=== PATIENT | female | born 1950 | race Caucasian/White ===

== ENCOUNTER 2016-05-21 14:05 | Emergency (ER) | payer MEDICARE, OTHER ==
[~2016-05-21] VITALS: Ht 157.5 cm; Wt 72.6 kg
[~2016-05-21 14:05] MED LIST: ATOR10TA66 PO; BENA1TAB15 PO; CALC-408 PO; CALC1TAB94 PO; CARV25TA PO; CIPR-226 PO; CIPRO; CITA20TA7 PO; CYAN10006 PO; FERR-74 PO; INSU100V SQ; INSULIN PUMP; IRON18TA PO; METF1000 PO; OMEG-109 PO; OMEG-160 PO; PANT40TA3 PO; TRIM100T PO; VIT1CAPS9 PO; VIT1TABL83 PO; WARF2TAB PO; WARF3TAB PO; WARF3TAB6 PO
[2016-05-21] MEDS ORDERED: NS IV 1000 ML 1,000 ML IV ONE (14:29)
[2016-05-21] MEDS ORDERED: DEXTROSE 50% 50 ML (IMS) SYR IV ONE (14:45)
[2016-05-21 14:46] LABS: BASOPHILS % (AUTO) 0 % (0-10); EOSINOPHILS # (AUTO) 0.1 10^3/uL (0.0-0.3); EOSINOPHILS % (AUTO) 1 % (0-10); LYMPHOCYTES # (AUTO) 1.5 X 10^3 (1.0-4.0); LYMPHOCYTES % (AUTO) 13 % (12-44); MEAN CORPUSCULAR HEMOGLOBIN 27 PG (25-34); MEAN CORPUSCULAR HGB CONC 33 G/DL (32-36); MEAN CORPUSCULAR VOLUME 83 FL (80-99); MEAN PLATELET VOLUME 10.2 FL (7.4-10.4); MONOCYTES # (AUTO) 0.9 X 10^3 (0.0-1.0); MONOCYTES % (AUTO) 8 % (0-12); NEUTROPHILS # (AUTO) 9.3 X 10^3 (1.8-7.8); NEUTROPHILS % (AUTO) 79 % (42-75); PLATELET COUNT 419 10^3/uL (130-400); RED BLOOD COUNT 4.42 10^6/uL (4.35-5.85); RED CELL DISTRIBUTION WIDTH 14.2 % (10.0-14.5); WHITE BLOOD COUNT 11.8 10^3/uL (4.3-11.0)
--- NOTE | 2016-05-21 14:47 | ED Fall/Injury ---
General Chief Complaint: Trauma-Non Activation Stated Complaint: BACK PAIN,L SHOULDER PAIN Nursing Triage Note: Pt fell on Sunday on a patio. C/O left shoulder pain, posterior neck and upper back pain. Source: patient History of Present Illness Time seen by provider: 14:25 Initial Comments PT ARRIVES VIA POV FROM HOME PT STATES LAST SUNDAY SHE FELL ON THE PATIO AND LANDED ON HER LEFT SHOULDER HAS NOT SOUGHT CARE UNTIL TODAY NO RELIEF OF PAIN WITH TYLENOL STATES NOW SHE CAN'T MOVE HER LEFT SHOULDER/ARM AND IS ALSO HAVING PAIN IN UPPER BACK AND NECK DOES HAVE SLIGHT TINGLING AROUND SHOULDER AREA BUT NO DISTAL PARESTHESIAS OR MOTOR DEFICITS DID NOT HIT HEAD NO HIP PAIN NO LOWER BACK PAIN NO CHEST PAIN OR SHORTNESS OF BREATH PT STATES SHE HAD A SIMILAR FALL 10 YEARS AGO AND LANDED ON THIS SAME SHOULDER - -NEVER SOUGHT CARE PT IS PROFUSELY DIAPHORETIC AND PALE ON ARRIVAL C/O FEELING DIZZY, SHAKEY AND NAUSEATED PT IS DIABETIC AND HAS AN INSULIN PUMP ON--STATES HE BLOOD GLUCOSE WAS 450 AT NOON, SO SHE GAVE HERSELF A BOLUS OF 30 UNITS OF INSULIN, BUT HAS NOT RECHECKED HER GLUCOSE STATES IT FEELS LIKE HER BLOOD GLUCOSE IS LOW ATE PART OF A SANDWICH AND KVNG CRACKERS AT NOON PCP: DR. BRUCE Allergies and Home Medications Allergies Coded Allergies: Penicillins (Verified Allergy, Intermediate, HIVES, 12/21/14) hydrocodone (Verified Adverse Reaction, Unknown, VOMITING, 11/04/13) Home Medications Atorvastatin Calcium 10 Mg Tablet, 10 MG PO EVERY EVENING, (Reported) Calcium Carbonate/Vitamin D3 1 Each Tablet, 1 TAB PO BID, (Reported) Carvedilol 25 Mg Tablet, 25 MG PO BID, (Reported) Ciprofloxacin HCl 250 Mg Tablet, 250 MG PO BID, (Reported) FILLED 03/04/15 #20 FOR A 10 DAY THERAPY Citalopram Hydrobromide 20 Mg Tablet, 20 MG PO EVERY EVENING, (Reported) Cyanocobalamin (Vitamin B-12) 1,000 Mcg Tablet, 1,000 MCG PO DAILY, (Reported) Insulin Lispro 100 Unit/1 Ml Vial, SQ UD, #20 (Reported) PUMP IS SET AT: 1.05 PER HOUR @ 0001 0.1 PER HOUR @ 0430 0.9 PER HOUR @ 1500 [place]-3/Dha/Epa/Fish Oil 1 Each Capsule, 1 CAP PO BID, (Reported) Pantoprazole Sodium 40 Mg Tablet.dr, 40 MG PO DAILY, (Reported) Trimethoprim 100 Mg Tablet, 100 MG PO EVERY EVENING, (Reported) Vit C/Vit E/Lutein/Min/[place]-3 1 Each Capsule, 1 CAP PO DAILY, (Reported) Warfarin Sodium 2 Mg Tablet, 2 MG PO DAILY, #30 (Reported) Constitutional: see HPI, diaphoresis Eyes: No Symptoms Reported Ears, Nose, Mouth, Throat: no symptoms reported Respiratory: no symptoms reported Cardiovascular: no symptoms reported Gastrointestinal: see HPI, nausea Genitourinary: no symptoms reported Musculoskeletal: see HPI Skin: no symptoms reported Psychiatric/Neurological: See HPI Past Qmkbonp-Owuzdr-Vkgerd Hx Patient Social History Alcohol Use: Denies Use Recreational Drug Use: No Smoking Status: Never a Smoker Recent Foreign Travel: No Contact w/Someone Who Travel: No Recent Infectious Disease Expo: No Immunizations Up To Date Date of Pneumonia Vaccine: Mar 17, 2009 Date of Influenza Vaccine: Nov 26, 2014 Surgeries HX Surgeries: Yes Surgeries: Bladder Surgery, Section, Gallbladder, Hysterectomy Respiratory Hx Respiratory Disorders: No Cardiovascular Hx Cardiac Disorders: Yes Cardiac Disorders: Deep Vein Thrombosis, Hypertension Neurological Hx Neurological Disorders: Yes (1997 ) Neurological Disorders: Stroke Reproductive System Hx Reproductive Disorders: No Sexually Transmitted Disease: No Genitourinary Hx Genitourinary Disorders: Yes Genitourinary Disorders: UTI-Chronic Gastrointestinal Hx Gastrointestinal Disorders: No Musculoskeletal Hx Musculoskeletal Disorders: Yes (OSTEOPENIA) Endocrine Hx Endocrine Disorders: Yes Endocrine Disorders: Diabetes, Insulin dep HEENT HX ENT Disorders: No Cancer Hx Cancer: Yes (1975-) Cancer: Cervical Psychosocial Hx Psychiatric Problems: No Integumentary HX Skin/Integumentary Disorder: No Blood Transfusions Hx Blood Disorders: 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) Family Medical History Significant Family History: No Pertinent Family Hx Family Medial History: Asthma 19 FATHER Diabetes mellitus 19 FATHER 19 MOTHER Hypertension 19 FATHER 19 MOTHER Physical Exam Vital Signs Vital Sign - Last 12Hours 05/21/16 05/21/16 14:21 14:25 Temp 97.5 Pulse 70 Resp 16 B/P (MAP) 92/69 Pulse Ox 96 O2 Delivery Room Air Capillary Refill : Less Than 3 Seconds General Appearance: WD/WN, no apparent distress, other (PALE AND DIAPHORETIC) HEENT: PERRL/EOMI, normal ENT inspection Neck: full range of motion, supple, tender lateral, tender midline Cardiovascular: normal peripheral pulses, regular rate, rhythm, no edema, no JVD, no murmur Respiratory: chest non-tender, normal breath sounds, no respiratory distress, no accessory muscle use Peripheral Pulses: 2+ Radial Pulses (R), 2+ Radial Pulses (L) Gastrointestinal: normal bowel sounds, non tender, soft, no organomegaly Back: other (TENDERNESS TO LEFT UPPER BACK AND NECK) Extremities: no pedal edema, no calf tenderness, normal capillary refill, other (TENDERNESS AND LIMITED ROM TO RIGHT SHOULDER. 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, no motor/sensory deficits, alert, normal mood/affect, oriented x 3 Skin: cool, diaphoresis, pallor [place] Coma Score Best Eye Response: (4) Open Spontaneously Best Verbal Response: (5) Oriented Best Motor Response: (6) Obeys Commands Chelsea Total: 15 Splinting and Joint Reduction : Immobilizers: XL Shoulder Progress/Results/Core Measures Results/Orders Lab Results Laboratory Tests Test 05/21/16 14:37 05/21/16 14:40 Range/Units Glucometer 59 *L 70-110 MG/DL White Blood Count 11.8 H 4.3-11.0 10^3/uL Red Blood Count 4.42 4.35-5.85 10^6/uL Hemoglobin 12.0 11.5-16.0 G/DL Hematocrit 37 35-52 % Mean Corpuscular Volume 83 80-99 FL Mean Corpuscular Hemoglobin 27 25-34 PG Mean Corpuscular Hemoglobin Concent 33 32-36 G/DL Red Cell Distribution Width 14.2 10.0-14.5 % Platelet Count 419 H 130-400 10^3/uL Mean Platelet Volume 10.2 7.4-10.4 FL Neutrophils (%) (Auto) 79 H 42-75 % Lymphocytes (%) (Auto) 13 12-44 % Monocytes (%) (Auto) 8 0-12 % Eosinophils (%) (Auto) 1 0-10 % Basophils (%) (Auto) 0 0-10 % Neutrophils # (Auto) 9.3 H 1.8-7.8 X 10^3 Lymphocytes # (Auto) 1.5 1.0-4.0 X 10^3 Monocytes # (Auto) 0.9 0.0-1.0 X 10^3 Eosinophils # (Auto) 0.1 0.0-0.3 10^3/uL Basophils # (Auto) 0.0 0.0-0.1 10^3/uL Prothrombin Time 27.0 H 12.2-14.7 SEC INR Comment 2.5 H 0.8-1.4 Activated Partial Thromboplast Time 52 H 24-35 SEC Sodium Level 141 135-145 MMOL/L Potassium Level 3.5 L 3.6-5.0 MMOL/L Chloride Level 106 98-107 MMOL/L Carbon Dioxide Level 21 21-32 MMOL/L Anion Gap 14 5-14 MMOL/L Blood Urea Nitrogen 14 7-18 MG/DL Creatinine 1.76 H 0.60-1.30 MG/DL Estimat Glomerular Filtration Rate 29 BUN/Creatinine Ratio 8 Glucose Level 55 *L 70-105 MG/DL Calcium Level 9.4 8.5-10.1 MG/DL Total Bilirubin 0.6 0.1-1.0 MG/DL Aspartate Amino Transf (AST/SGOT) 18 5-34 U/L Alanine Aminotransferase (ALT/SGPT) 15 0-55 U/L Alkaline Phosphatase 66 40-136 U/L Troponin I < 0.30 <0.30 NG/ML Total Protein 6.9 6.4-8.2 G/DL Albumin 3.7 3.2-4.5 G/DL My Orders Orders - LEAH MONTERO DO Accucheck Stat ONCE (05/21/16 14:29) Saline Lock/Iv-Start (05/21/16 14:29) Monitor-Rhythm Ecg Trace Only (05/21/16 14:29) Cbc With Automated Diff (05/21/16 14:29) Comprehensive Metabolic Panel (05/21/16 14:29) Protime With Inr (05/21/16 14:29) Partial Thromboplastin Time (05/21/16 14:29) Troponin I (05/21/16 14:29) Chest 1 View, Ap/Pa Only (05/21/16 14:29) Shoulder, Left, 3 Views (05/21/16 14:29) Saline Lock/Iv-Start (05/21/16 14:29) Ns Iv 1000 Ml (Sodium Chloride 0.9%) (05/21/16 14:29) D50w (Emergency) Syringe (Dextrose 50% 5 (05/21/16 14:45) Ct Cervical/Thoracic Spine Wo (05/21/16 14:43) Iohexol Injection (Omnipaque 350 Mg/Ml 1 (05/21/16 15:00) Ns (Ivpb) (Sodium Chloride 0.9% Ivpb Bag (05/21/16 15:00) Ct Chest Wo (05/21/16 14:29) Medications Given in ED Current Medications Medications Dose Ordered Sig/Jean Claude Route Start Time Stop Time Status Last Admin Dose Admin Dextrose 50 ml ONCE ONCE IV 05/21/16 14:45 05/21/16 14:46 DC 05/21/16 14:46 50 ML Sodium Chloride 1,000 ml @ 0 mls/hr Q0M ONCE IV 05/21/16 14:29 05/21/16 14:34 DC 05/21/16 14:47 1,000 MLS/HR Vital Signs/I&O Vital Sign - Last 12Hours 05/21/16 05/21/16 14:21 14:25 Temp 97.5 Pulse 70 70 Resp 16 16 B/P (MAP) 92/69 92/69 (77) Pulse Ox 96 96 O2 Delivery Room Air Blood Pressure Mean: 77 Progress Note : Progress Note ACCUCHECK 59--1 AMP D50 GIVEN PT NO LONGER DIAPHORETIC AND PALE--LOOKS AND FEELS MUCH BETTER REPEAT ACCUCHECK PRIOR TO DISMISSAL--87 Diagnostic Imaging Comments CXR--NO ACUTE PROCESS XRAYS LEFT SHOULDER--FRACTURE OF GREATER TUBEROSITY OF HUMERUS, WIDENING OF AC JOINT CT CERVICAL AND THORACIC SPINE--NO ACUTE PROCESS CT CHEST--NO ACUTE PROCESS ALL PER RADIOLOGIST REPORTS @ 1545 Reviewed: Reviewed by Me Departure Impression Impression: Primary Impression: Closed fracture of left proximal humerus Additional Impression: Hypoglycemia associated with diabetes Disposition: 01 HOME, SELF-CARE Condition: Stable Departure-Patient Inst. Referrals: SHAKEEL BRUCE DO (PCP/Family) Primary Care Physician REBECA WOO MD Patient Instructions: How to Use a Shoulder Sling, Low Blood Sugar, Adult (DC) , Shoulder Fracture (DC) Add. Discharge Instructions: ICE TO AREA AT 20 MINUTE INTERVALS WEAR IMMOBILIZER AT ALL TIMES FOLLOW UP WITH DR. WOO OR ORTHOPEDIC SURGEON OF CHOICE NEXT WEEK FOR FURTHER CARE All discharge instructions reviewed with patient and/or family. Voiced understanding. Scripts Tramadol HCl (Ultram) 50 Mg Tablet 50 MG PO Q4H, #20 TAB Prov: LEAH MONTERO DO 05/21/16 Images Full Body/Extremities Full Progress SEE ADDITIONAL PAPER DIAGRAMS FOR IMAGES LEAH MONTERO DO May 21, 2016 14:47
[2016-05-21 14:56] LABS: INR 2.5 (0.8-1.4)
[2016-05-21] MEDS ORDERED: NS 100 ML (IVPB) BAG IV ONE (15:00)
[2016-05-21] MEDS ORDERED: IOHEXOL 350 MG/ML 100 ML (OMNIPAQUE 350) VIAL IV ONE (15:00)
[2016-05-21 15:05] LABS: ALANINE AMINOTRANSFERASE 15 U/L (0-55); ALBUMIN 3.7 G/DL (3.2-4.5); ANION GAP 14 MMOL/L (5-14); ASPARTATE AMINO TRANSFERASE 18 U/L (5-34); BILIRUBIN,TOTAL 0.6 MG/DL (0.1-1.0); BLOOD UREA NITROGEN 14 MG/DL (7-18); BUN/CREATININE RATIO 8; CALCIUM 9.4 MG/DL (8.5-10.1); CARBON DIOXIDE 21 MMOL/L (21-32); CHLORIDE 106 MMOL/L (98-107); CREATININE SERUM 1.76 MG/DL (0.60-1.30); GFR ESTIMATED 29; POTASSIUM 3.5 MMOL/L (3.6-5.0); SODIUM 141 MMOL/L (135-145); TOTAL PROTEIN 6.9 G/DL (6.4-8.2)
[2016-05-21 15:06] LABS: GLUCOSE 55 MG/DL (70-105)
[2016-05-21] MEDS ORDERED: WARF2TAB PO (15:08)
[2016-05-21 15:11] LABS: TROPONIN I < 0.30 NG/ML (<0.30)
--- NOTE | 2016-05-21 15:22 | Diagnostic Imaging Report ---
INDICATION: Recent fall. Left shoulder pain. EXAMINATION: Two views of the left shoulder were obtained. FINDINGS: There is some apparent widening of the AC joint which measures 11-12 mm but there is no abnormal elevation of the clavicle in relationship to the acromion. The glenohumeral joint is intact. There is a focal nondisplaced fracture involving the greater tuberosity of the humerus. IMPRESSION: Fractured tuberosity of the humerus. AC joint widening. Dictated by: Dictated on workstation # [id number]
--- NOTE | 2016-05-21 15:24 | Diagnostic Imaging Report ---
INDICATION: Recent fall. Left-sided chest pain. EXAMINATION: A single view of the chest was obtained. FINDINGS: Normal heart size and vascularity. The lungs are clear. There is no effusion or pneumothorax. IMPRESSION: No acute abnormality is seen. Dictated by: Dictated on workstation # [id number]
--- NOTE | 2016-05-21 15:33 | Diagnostic Imaging Report ---
INDICATION: Fall with left shoulder pain. EXAMINATION: CT of the cervical and thoracic spine without contrast. FINDINGS: Sagittal and coronal reformatted images of the cervical spine show good alignment of vertebral bodies. Body heights are well maintained. The atlantoaxial joint appears normal. Facets are in good alignment. There is degenerative disc disease at C6-C7 and C7-T1. Osteophytes along the endplate are causing mild midline ventral extradural encroachment with no central canal stenosis. There are no fractures. The surrounding soft tissues are normal. Thoracic spine shows good alignment with sagittal and coronal reformatting. Body heights are well maintained throughout with no compression fractures. Schmorl's nodes are seen at the endplates of T11 and T12. These appear chronic in nature. No spinal stenosis. Facets are in good alignment without evidence of fracture. The surrounding soft tissues are normal. IMPRESSION: Degenerative cervical and thoracic disc disease with no acute abnormalities. Dictated by: Dictated on workstation # [id number]
--- NOTE | 2016-05-21 15:40 | Diagnostic Imaging Report ---
PROCEDURE: CT chest without contrast. TECHNIQUE: Multiple contiguous axial images were obtained through the chest without the use of intravenous contrast. INDICATION: Fall with pain to left shoulder. FINDINGS: Bone windows show no evidence of clavicular fracture. The scapula is intact. No evidence of rib fractures. The lungs are well-aerated. There are no infiltrates or masses. No evidence of pneumothorax or pleural effusions. Aorta is atherosclerotic without evidence of aneurysm. No mediastinal or hilar adenopathy of pathologic size. IMPRESSION: Normal CT scan of the chest with no acute findings. See left shoulder report for a description of AC joint separation and humeral tuberosity fracture which are not visualized on this exam. Dictated by: Dictated on workstation # [id number]
[2016-05-21] MEDS ORDERED: TRAM-42 PO (15:53)
[2016-05-21 16:10] VITALS: BP 98/72
--- OUTSIDE RECORDS SUMMARY | 2016-06-06 13:32 | XMS REPORT | Clinical Summary ---
Author Author Admin, E Organization [facility] Address Unknown Phone Unavailable Allergies, Adverse Reactions, Alerts Allergy Name Reaction Description Start Date Severity Status Provider Allergies Unknown Conditions or Problems Problem Name Problem Code Onset Date Status Entry Date Provider Comment Standard Description Annotate UTI's, recurrent 599.0 Active Kari Laughlin MD Urinary tract infection, site not specified Incomplete Bladder Emptying Active Kari Laughlin MD Retention of urine, unspecified Medication List Medication Instructions Start Date Stop Date Generic Name NDC Status Provider Patient Instruction Drug Treatment Unknown - unknown Encounters Code Encounter Date Provider Facility CPT-46711 Level 3 New Patient 21:44:21 CDT Kari Laughlin MD [facility] - [facility] Procedures Code Procedure Name Date Entry Date Standard Description CPT-27925 Insert non indwelling bld cath 21:44:21 CDT CPT-75654 Bladder Scan 21:44:21 CDT
--- OUTSIDE RECORDS SUMMARY | 2016-06-06 13:32 | XMS REPORT | Clinical Summary ---
Author Author Admin, E Organization [facility] Address Unknown Phone Unavailable Allergies, Adverse Reactions, [...] unknown Encounters Code Encounter Date Provider Facility CPT-10806 Level 3 New Patient 21:44:21 CDT Kari Laughlin MD [facility] - [facility] Procedures Code Procedure Name Date Entry Date Standard Description CPT-31451 Insert non indwelling bld cath 21:44:21 CDT CPT-34205 Bladder Scan 21:44:21 CDT
--- OUTSIDE RECORDS SUMMARY | 2016-06-06 13:32 | XMS REPORT | Clinical Summary ---
Author Author Admin, E Organization [facility] Address Unknown Phone Unavailable Allergies, Adverse Reactions, [...] Generic Name NDC Status Provider Patient Instruction CIPRO 500 MG TAB 1 tablet two times daily CIPROFLOXACIN HCL 79558390401 Active Ana Swanson Active Encounters Code Encounter Date Provider Facility CPT-65358 Level 3 New Patient 21:44:21 CDT Kari Laughlin MD [facility] - [facility] Procedures Code Procedure Name Date Entry Date Standard Description CPT-83157 Insert non indwelling bld cath 21:44:21 CDT CPT-02390 Bladder Scan 21:44:21 CDT
--- OUTSIDE RECORDS SUMMARY | 2016-06-06 13:32 | XMS REPORT | Clinical Summary ---
Author Author Admin, E Organization [facility] Address Unknown Phone Unavailable Allergies, Adverse [...] unknown Encounters Code Encounter Date Provider Facility CPT-42584 Level 3 New Patient 21:44:21 CDT Kari Laughlin MD [facility] - [facility] Procedures Code Procedure Name Date Entry Date Standard Description CPT-35046 Insert non indwelling bld cath 21:44:21 CDT CPT-50187 Bladder Scan 21:44:21 CDT
--- OUTSIDE RECORDS SUMMARY | 2016-06-06 13:32 | XMS REPORT | Continuity of Care Document ---
Author Author [facility] Organization [facility] Address Unknown Phone Unavailable Care Team Providers Care Heavy Forger Name Role Phone PCP Unavailable Source Comments Some departments are not documenting in the electronic medical record. If you do not see the information that you expected, contact Release of Information in the Health Information Management department at [phone] for further assistance in locating additional records.[facility] Active Allergies and Adverse Reactions Allergen Noted Date Severity Reactions Comments Penicillins 12/13/2005 Allergy recorded in SMS: Penicillin~Reactions: HIVES Sulfa (Sulfonamide 12/13/2005 Allergy recorded in SMS: Antibiotics) Sulfa~Reactions: HIVES Current Medications Not on file Active Problems Not on file Social History Tobacco Use Types Packs/Day Years Used Date Never Assessed Plan of Care Health Maintenance Due Date Last Done Comments Hepatitis C Screening 1950 Physical (Comprehensive) 1957 Exam Pertussis Vaccine 1961 Tetanus Vaccine 1967 Breast Cancer Screening 1990 Colorectal Cancer 02/29/2000 Screening Shingles Vaccine 2010 Osteoporosis Screening 2015 Prevnar/Pneumovax (#1) 2015 Influenza Vaccine 10/27/2016 Results from Last 3 Months Not on file
--- OUTSIDE RECORDS SUMMARY | 2016-06-06 13:33 | XMS REPORT | Clinical Summary ---
Author Author Admin, E Organization [facility] Address Unknown Phone Unavailable Allergies, Adverse [...] 1 tablet two times daily CIPROFLOXACIN HCL 57808699331 Active Ana Swanson Active Encounters Code Encounter Date Provider Facility CPT-35796 Level 3 New Patient 21:44:21 CDT Kari Laughlin MD [facility] - [facility] Procedures Code Procedure Name Date Entry Date Standard Description CPT-11373 Insert non indwelling bld cath 21:44:21 CDT CPT-87148 Bladder Scan 21:44:21 CDT
--- OUTSIDE RECORDS SUMMARY | 2016-06-06 13:33 | XMS REPORT | Clinical Summary ---
Author Author Admin, E Organization [facility] Address Unknown Phone Unavailable Allergies, Adverse Reactions, Alerts Allergy Name Reaction Description Start Date Severity Status Provider VICODIN anxiety Critical Active Baldemar PENICILLIN hives Critical Active Baldemar Conditions or Problems Problem Name Problem Code Onset Date Status Entry Date Provider Comment Standard Description Annotate UTI's, recurrent 599.0 Active Kari Laughlin MD Urinary tract infection, site not specified Incomplete Bladder Emptying Active Kari Laughlin MD Retention of urine, unspecified Medication List Medication Instructions Start Date Stop Date Generic Name NDC Status Provider Patient Instruction VITAMIN D3 1000 UNIT CAPS 1 po qd CHOLECALCIFEROL 52066100258 Active Stephanie Devlinr Active VITAMIN C 1000 MG ORAL TABS 1 tab by mouth daily ASCORBIC ACID 24597731452 Active Stephanie Devlinr Active RA VITAMIN B-12 100 MCG ORAL TABS 1 tab by mouth daily CYANOCOBALAMIN 26735051513 Active Stephanie Devlinr Active VISION FORMULA/LUTEIN ORAL TABS 1 tab by mouth daily MULTIPLE VITAMINS-MINERALS 49082439672 Active Stephanie Devlinr Active CALCIUM MAGNESIUM 750 300-300 MG ORAL TABS 1 tab by mouth daily CALCIUM-MAGNESIUM 96644301443 Active Stephanie Devlinr Active FISH OIL 1000 MG CPDR 1 pill by mouth daily for cholesterol OMEGA-3 FATTY ACIDS 08923496378 Active Baldemar Active ATORVASTATIN CALCIUM 10 MG TABS 1 pill by mouth nightly, for cholesterol 2015 ATORVASTATIN CALCIUM 95899195800 Active Baldemar Active CITALOPRAM HYDROBROMIDE 20 MG TABS 1 tablet by mouth daily CITALOPRAM HYDROBROMIDE 64169170965 Active Stephanie Mcdermott Active TRIMETHOPRIM 100 MG ORAL TABS 1 tab by mouth daily TRIMETHOPRIM 08736825930 Active Stephanie Devlinr Active COUMADIN 2.5 MG TAB WARFARIN SODIUM 71054200093 Active Stephanie Devilnr Active COREG CR 20 MG ORAL [id number] 1 tab by mouth daily CARVEDILOL PHOSPHATE 87902820850 Active Stephanie Devlinr Active PANTOPRAZOLE SODIUM 40 MG TBEC 1 pill by mouth daily PANTOPRAZOLE SODIUM 15504887041 Active Stephanie Devlinr Active METFORMIN HCL 1000 MG TABS 1 tablet by mouth daily METFORMIN HCL 94390711500 Active Stephanie Devlinr Active CIPRO 500 MG TAB 1 tablet two times daily CIPROFLOXACIN HCL 08786355234 No Longer Active Ana Swanson Active CIPRO 500 MG TAB 1 tablet two times daily CIPRO 500 MG TAB 772764 CIPROFLOXACIN HCL Inactive Vital Signs Date Name Value Unit Range Description blood pressure, diastolic - 8462-4 70 mm[Hg] BP jaeger blood pressure, systolic - 8480-6 138 mm[Hg] BP sys pulse rate E&M - 8867-4 78 /min Heart rate temperature E&M 98.4 [degF] Body temperature Diagnostic Results Date Name Value Unit Range Description Office Visit: CN-recurrent uti - Chemistry RBC, urine, dipstick non-hemolyzed trace protein, total urine random negative mg/dL Office Visit: CN-recurrent uti - Urinalysis pH, urine, semiquantitative 5 specific gravity, urine 1.005 urinalysis, routine Clean Catch culture status Yes ketones, urine, by test strip negative bilirubin, urine negative glucose, urine, semiquantitative negative urine color yellow appearance, urine clear leukocyte esterase, urine, by dipstick 3+ nitrite, urine, semiquantitative positive urobilinogen, urine, semiquantitative (dipstick) negative protein, urine, semiquantitative (dipstick) negative Encounters Code Encounter Date Provider Facility CPT-57929 Level 3 New Patient 21:44:21 CDT Kari Laughlin MD [facility] Procedures Code Procedure Name Date Entry Date Standard Description CPT-22160 Insert non indwelling bld cath 21:44:21 CDT CPT-55708 Bladder Scan 21:44:21 CDT
--- OUTSIDE RECORDS SUMMARY | 2016-06-06 13:33 | XMS REPORT | Clinical Summary ---
Author Author Admin, QIE Organization [facility] Address Unknown Phone Unavailable Allergies, [...] 1000 UNIT CAPS 1 po qd CHOLECALCIFEROL 83270923971 Active Stephanie Devlinr Active VITAMIN C 1000 MG ORAL TABS 1 tab by mouth daily ASCORBIC ACID 07357325560 Active Stephanie Devlinr Active RA VITAMIN B-12 100 MCG ORAL TABS 1 tab by mouth daily CYANOCOBALAMIN 15166716206 Active Stephanie Devlinr Active VISION FORMULA/LUTEIN ORAL TABS 1 tab by mouth daily MULTIPLE VITAMINS-MINERALS 27782185518 Active Stephanie Devlinr Active CALCIUM MAGNESIUM 750 300-300 MG ORAL TABS 1 tab by mouth daily CALCIUM-MAGNESIUM 43429027738 Active Baldemar Active FISH OIL 1000 MG CPDR 1 pill by mouth daily for cholesterol OMEGA-3 FATTY ACIDS 16825617165 Active Baldemar Active ATORVASTATIN CALCIUM 10 MG TABS 1 pill by mouth nightly, for cholesterol 2015 ATORVASTATIN CALCIUM 89636968784 Active Baldemar Active CITALOPRAM HYDROBROMIDE 20 MG TABS 1 tablet by mouth daily CITALOPRAM HYDROBROMIDE 14049017571 Active Stephanie Mcdermott Active TRIMETHOPRIM 100 MG ORAL TABS 1 tab by mouth daily TRIMETHOPRIM 56979348919 Active Stephanie Devlinr Active COUMADIN 2.5 MG TAB WARFARIN SODIUM 26439289719 Active Stephanie Devlinr Active COREG CR 20 MG ORAL [id number] 1 tab by mouth daily CARVEDILOL PHOSPHATE 11187388430 Active Stephanie Devlinr Active PANTOPRAZOLE SODIUM 40 MG TBEC 1 pill by mouth daily PANTOPRAZOLE SODIUM 36366978170 Active Stephanie Devlinr Active METFORMIN HCL 1000 MG TABS 1 tablet by mouth daily METFORMIN HCL 66326821582 Active Stephanie Devlinr Active CIPRO 500 MG TAB 1 tablet two times daily CIPROFLOXACIN HCL 39945273915 No Longer Active Ana Swanson Active CIPRO 500 MG TAB 1 tablet two times daily CIPRO 500 MG TAB 655351 CIPROFLOXACIN HCL Inactive Vital Signs Date Name [...] negative Encounters Code Encounter Date Provider Facility CPT-61112 Level 3 New Patient 21:44:21 CDT Kari Laughlin MD [facility] Procedures Code Procedure Name Date Entry Date Standard Description CPT-86914 Insert non indwelling bld cath 21:44:21 CDT CPT-31231 Bladder Scan 21:44:21 CDT
--- OUTSIDE RECORDS SUMMARY | 2016-06-06 13:33 | XMS REPORT | Clinical Summary ---
Author Author Admin, QIE Organization [facility] Address Unknown Phone Unavailable Allergies, Adverse [...] 1000 UNIT CAPS 1 po qd CHOLECALCIFEROL 74587236386 Active Stephanie Devlinr Active VITAMIN C 1000 MG ORAL TABS 1 tab by mouth daily ASCORBIC ACID 10757362086 Active Stephanie Devlinr Active RA VITAMIN B-12 100 MCG ORAL TABS 1 tab by mouth daily CYANOCOBALAMIN 20618723352 Active Stephanie Devlinr Active VISION FORMULA/LUTEIN ORAL TABS 1 tab by mouth daily MULTIPLE VITAMINS-MINERALS 55138704937 Active Stephanie Devlinr Active CALCIUM MAGNESIUM 750 300-300 MG ORAL TABS 1 tab by mouth daily CALCIUM-MAGNESIUM 55212772345 Active Baldemar Active FISH OIL 1000 MG CPDR 1 pill by mouth daily for cholesterol OMEGA-3 FATTY ACIDS 12326998349 Active Baldemar Active ATORVASTATIN CALCIUM 10 MG TABS 1 pill by mouth nightly, for cholesterol 2015 ATORVASTATIN CALCIUM 48268261110 Active Baldemar Active CITALOPRAM HYDROBROMIDE 20 MG TABS 1 tablet by mouth daily CITALOPRAM HYDROBROMIDE 05274377262 Active Stephanie Devlinr Active TRIMETHOPRIM 100 MG ORAL TABS 1 tab by mouth daily TRIMETHOPRIM 35691249178 Active Baldemar Active COUMADIN 2.5 MG TAB WARFARIN SODIUM 18612906951 Active Baldemar Active COREG CR 20 MG ORAL [id number] 1 tab by mouth daily CARVEDILOL PHOSPHATE 67008278489 Active Baldemar Active PANTOPRAZOLE SODIUM 40 MG TBEC 1 pill by mouth daily PANTOPRAZOLE SODIUM 36416930430 Active Baldemar Active METFORMIN HCL 1000 MG TABS 1 tablet by mouth daily METFORMIN HCL 25281098901 Active Baldemar Active CIPRO 500 MG TAB 1 tablet two times daily CIPROFLOXACIN HCL 27735297875 No Longer Active Ana Swanson Active CIPRO 500 MG TAB 1 tablet two times daily CIPRO 500 MG TAB 187682 CIPROFLOXACIN HCL Inactive Vital Signs Date Name Value Unit Range Description blood pressure, diastolic - 8462-4 75 mm[Hg] BP jaeger blood pressure, systolic - 8480-6 135 mm[Hg] BP sys height E&M - 8302-2 62 [in_us] Bdy height pulse rate E&M - 8867-4 75 /min Heart rate temperature E&M 98.4 [degF] Body temperature weight E&M - 3141-9 186.5 [lb_av] Weight Measured blood pressure, diastolic - 8462-4 70 mm[Hg] [...] (dipstick) negative protein, urine, semiquantitative (dipstick) negative Office Visit: Follow up UTI - Chemistry RBC, urine, dipstick negative protein, total urine random trace mg/dL Office Visit: Follow up UTI - Urinalysis specific gravity, urine 1.010 pH, urine, semiquantitative 5 urinalysis, routine Clean Catch culture status No ketones, urine, by test strip negative bilirubin, urine negative glucose, urine, semiquantitative 1+ urine color yellow appearance, urine clear leukocyte esterase, urine, by dipstick negative nitrite, urine, semiquantitative negative urobilinogen, urine, semiquantitative (dipstick) 0.2 protein, urine, semiquantitative (dipstick) negative Encounters Code Encounter Date Provider Facility CPT-58394 Level 3 New Patient 21:44:21 CDT Kari Laughlin MD [facility] Procedures Code Procedure Name Date Entry Date Standard Description CPT-82375 Insert non indwelling bld cath 21:44:21 CDT CPT-45015 Bladder Scan 21:44:21 CDT
--- OUTSIDE RECORDS SUMMARY | 2016-06-06 13:33 | XMS REPORT | Clinical Summary ---
Author Author Admin, E Organization [facility] Address Unknown Phone Unavailable Allergies, Adverse [...] unknown Encounters Code Encounter Date Provider Facility CPT-97126 Level 3 New Patient 21:44:21 CDT Kari Laughlin MD [facility] Procedures Code Procedure Name Date Entry Date Standard Description CPT-67993 Insert non indwelling bld cath 21:44:21 CDT CPT-51412 Bladder Scan 21:44:21 CDT
--- OUTSIDE RECORDS SUMMARY | 2016-06-06 13:33 | XMS REPORT | Clinical Summary ---
Author Author Admin, QIE Organization [facility] Address Unknown Phone Unavailable Allergies, [...] 1000 UNIT CAPS 1 po qd CHOLECALCIFEROL 12802849118 Active Stephanie Devlinr Active VITAMIN C 1000 MG ORAL TABS 1 tab by mouth daily ASCORBIC ACID 21450274517 Active Stephanie Devlinr Active RA VITAMIN B-12 100 MCG ORAL TABS 1 tab by mouth daily CYANOCOBALAMIN 29320029762 Active Stephanie Devlinr Active VISION FORMULA/LUTEIN ORAL TABS 1 tab by mouth daily MULTIPLE VITAMINS-MINERALS 78779121408 Active Stephanie Devlinr Active CALCIUM MAGNESIUM 750 300-300 MG ORAL TABS 1 tab by mouth daily CALCIUM-MAGNESIUM 11484809924 Active Baldemar Active FISH OIL 1000 MG CPDR 1 pill by mouth daily for cholesterol OMEGA-3 FATTY ACIDS 49016506392 Active Baldemar Active ATORVASTATIN CALCIUM 10 MG TABS 1 pill by mouth nightly, for cholesterol 2015 ATORVASTATIN CALCIUM 85905688568 Active Baldemar Active CITALOPRAM HYDROBROMIDE 20 MG TABS 1 tablet by mouth daily CITALOPRAM HYDROBROMIDE 09989300977 Active Baldemar Active TRIMETHOPRIM 100 MG ORAL TABS 1 tab by mouth daily TRIMETHOPRIM 97772443042 Active Baldemar Active COUMADIN 2.5 MG TAB WARFARIN SODIUM 22865914989 Active Baldemar Active COREG CR 20 MG ORAL [id number] 1 tab by mouth daily CARVEDILOL PHOSPHATE 46265363046 Active Baldemar Active PANTOPRAZOLE SODIUM 40 MG TBEC 1 pill by mouth daily PANTOPRAZOLE SODIUM 76767656051 Active Baldemar Active METFORMIN HCL 1000 MG TABS 1 tablet by mouth daily METFORMIN HCL 65218357762 Active Baldemar Active CIPRO 500 MG TAB 1 tablet two times daily CIPROFLOXACIN HCL 70067999472 No Longer Active Ana Swanson Active CIPRO 500 MG TAB 1 tablet two times daily CIPRO 500 MG TAB 386424 CIPROFLOXACIN HCL Inactive Vital Signs Date Name Value Unit Range Description blood pressure, diastolic - 8462-4 75 mm[Hg] BP jaeger blood pressure, systolic - 8480-6 120 mm[Hg] BP sys pulse rate E&M - 8867-4 77 /min Heart rate temperature E&M 98.6 [degF] Body temperature weight E&M - 3141-9 185 [lb_av] Weight Measured blood pressure, diastolic - 8462-4 75 mm[Hg] [...] negative Encounters Code Encounter Date Provider Facility CPT-55314 Level 3 Est. Patient 22:47:15 OSEAS Laughlin MD [facility] Ant CPT-89379 Level 3 New Patient 21:44:21 CDT Kari Laughlin MD [facility] Procedures Code Procedure Name Date Entry Date Standard Description CPT-21449 Urine Dip (Floor Use Only) 22:47:16 [employer] CPT-75437 Insert non indwelling bld cath 21:44:21 CDT CPT-96668 Bladder Scan 21:44:21 CDT
--- OUTSIDE RECORDS SUMMARY | 2016-06-06 13:33 | XMS REPORT | Clinical Summary ---
Author Author Admin, E Organization [facility] Address Unknown Phone Unavailable Allergies, Adverse [...] 1000 UNIT CAPS 1 po qd CHOLECALCIFEROL 58715544325 Active Stephanie Devlinr Active VITAMIN C 1000 MG ORAL TABS 1 tab by mouth daily ASCORBIC ACID 70097622356 Active Stephanie Devlinr Active RA VITAMIN B-12 100 MCG ORAL TABS 1 tab by mouth daily CYANOCOBALAMIN 47448225195 Active Stephanie Devlinr Active VISION FORMULA/LUTEIN ORAL TABS 1 tab by mouth daily MULTIPLE VITAMINS-MINERALS 87498916440 Active Stephanie Devlinr Active CALCIUM MAGNESIUM 750 300-300 MG ORAL TABS 1 tab by mouth daily CALCIUM-MAGNESIUM 81745714492 Active Stephanie Devlinr Active FISH OIL 1000 MG CPDR 1 pill by mouth daily for cholesterol OMEGA-3 FATTY ACIDS 80626541470 Active Baldemar Active ATORVASTATIN CALCIUM 10 MG TABS 1 pill by mouth nightly, for cholesterol 2015 ATORVASTATIN CALCIUM 11307715799 Active Baldemar Active CITALOPRAM HYDROBROMIDE 20 MG TABS 1 tablet by mouth daily CITALOPRAM HYDROBROMIDE 60947530327 Active Stephanie Mcdermott Active TRIMETHOPRIM 100 MG ORAL TABS 1 tab by mouth daily TRIMETHOPRIM 34156442845 Active Stephanie Devlinr Active COUMADIN 2.5 MG TAB WARFARIN SODIUM 25184944580 Active Stephanie Devlinr Active COREG CR 20 MG ORAL [id number] 1 tab by mouth daily CARVEDILOL PHOSPHATE 45483594360 Active Stephanie Devlinr Active PANTOPRAZOLE SODIUM 40 MG TBEC 1 pill by mouth daily PANTOPRAZOLE SODIUM 73063549740 Active Stephanie Devlinr Active METFORMIN HCL 1000 MG TABS 1 tablet by mouth daily METFORMIN HCL 63638241304 Active Stephanie Devlinr Active CIPRO 500 MG TAB 1 tablet two times daily CIPROFLOXACIN HCL 72589898158 No Longer Active Ana Swanson Active CIPRO 500 MG TAB 1 tablet two times daily CIPRO 500 MG TAB 815896 CIPROFLOXACIN HCL Inactive Vital Signs Date Name [...] negative Encounters Code Encounter Date Provider Facility CPT-89681 Level 3 New Patient 21:44:21 CDT Kari Laughlin MD [facility] Procedures Code Procedure Name Date Entry Date Standard Description CPT-74095 Insert non indwelling bld cath 21:44:21 CDT CPT-55629 Bladder Scan 21:44:21 CDT
--- OUTSIDE RECORDS SUMMARY | 2016-06-06 13:34 | XMS REPORT | Clinical Summary ---
Author Author Admin, QIE Organization [facility] Address Unknown Phone Unavailable Allergies, [...] 1000 UNIT CAPS 1 po qd CHOLECALCIFEROL 02838159823 Active Stephanie Devlinr Active VITAMIN C 1000 MG ORAL TABS 1 tab by mouth daily ASCORBIC ACID 78017661130 Active Stephanie Devlinr Active RA VITAMIN B-12 100 MCG ORAL TABS 1 tab by mouth daily CYANOCOBALAMIN 15641375597 Active Stephanie Devlinr Active VISION FORMULA/LUTEIN ORAL TABS 1 tab by mouth daily MULTIPLE VITAMINS-MINERALS 41200560638 Active Stephanie Devlinr Active CALCIUM MAGNESIUM 750 300-300 MG ORAL TABS 1 tab by mouth daily CALCIUM-MAGNESIUM 22727125775 Active Baldemar Active FISH OIL 1000 MG CPDR 1 pill by mouth daily for cholesterol OMEGA-3 FATTY ACIDS 13293405020 Active Baldemar Active ATORVASTATIN CALCIUM 10 MG TABS 1 pill by mouth nightly, for cholesterol 2015 ATORVASTATIN CALCIUM 64012161660 Active Baldemar Active CITALOPRAM HYDROBROMIDE 20 MG TABS 1 tablet by mouth daily CITALOPRAM HYDROBROMIDE 38472100723 Active Stephanie Mcdermott Active TRIMETHOPRIM 100 MG ORAL TABS 1 tab by mouth daily TRIMETHOPRIM 92330050415 Active Stephanie Devlinr Active COUMADIN 2.5 MG TAB WARFARIN SODIUM 62873142228 Active Stephanie Devlinr Active COREG CR 20 MG ORAL [id number] 1 tab by mouth daily CARVEDILOL PHOSPHATE 65041827926 Active Stephanie Devlinr Active PANTOPRAZOLE SODIUM 40 MG TBEC 1 pill by mouth daily PANTOPRAZOLE SODIUM 07648849240 Active Stephanie Devlinr Active METFORMIN HCL 1000 MG TABS 1 tablet by mouth daily METFORMIN HCL 19197398340 Active Stephanie Devlinr Active CIPRO 500 MG TAB 1 tablet two times daily CIPROFLOXACIN HCL 06402602026 No Longer Active Ana Swanson Active CIPRO 500 MG TAB 1 tablet two times daily CIPRO 500 MG TAB 345607 CIPROFLOXACIN HCL Inactive Encounters Code Encounter Date Provider Facility CPT-38696 Level 3 New Patient 21:44:21 CDT J Jamshid Laughlin MD [facility] Procedures Code Procedure Name Date Entry Date Standard Description CPT-38538 Insert non indwelling bld cath 21:44:21 CDT CPT-92905 Bladder Scan 21:44:21 CDT
--- OUTSIDE RECORDS SUMMARY | 2016-06-06 13:34 | XMS REPORT | Continuity of Care Document ---
Author Author [facility] Organization [facility] Address Unknown Phone Unavailable Allergies Active Description Code Type Severity Reaction Onset Reported/Identified Relationship to Patient Clinical Status Yes PENICILLIN PENICILLIN Unknown HIVES 11/04/2013 Yes Penicillins [id number] Drug Allergy Moderate HIVES 12/21/2014 Yes hydrocodone [id number] Drug Allergy Unknown VOMITING 12/21/2014 Medications Problems Date Dx Coded Attending Type Code Diagnosis Diagnosed By 03/13/2013 NOA DOMINGUEZ, CYNDEE Warren Ot 250.80 DIAB W OTH SPEC MANIFEST, TYPE II OR UNS 03/13/2013 NOA DOMINGUEZ, CYNDEE Warren Ot 790.29 OTHER ABNORMAL GLUCOSE 03/13/2013 NOA DOMINGUEZ, CYNDEE Warren Ot V45.85 INSULIN PUMP STATUS 12/21/2014 GLENNY DOMINGUEZ, INESSA Ray Ot E11.9 TYPE 2 DIABETES MELLITUS WITHOUT COMPLIC 12/21/2014 GLENNY DOMINGUEZ, INESSA Ray Ot I10 ESSENTIAL (PRIMARY) HYPERTENSION 12/21/2014 GLENNY DOMINGUEZ, INESSA Ray Ot K20.9 ESOPHAGITIS, UNSPECIFIED 12/21/2014 GLENNY DOMINGUEZ, INESSA Ray Ot K22.2 ESOPHAGEAL OBSTRUCTION 12/21/2014 GLENNY DOMINGUEZ, INESSA Ray Ot K44.9 DIAPHRAGMATIC HERNIA WITHOUT OBSTRUCTION 12/21/2014 GLENNY DOMINGUEZ, INESSA Ray Ot Z86.718 PERSONAL HISTORY OF OTHER VENOUS THROMBO 12/29/2014 STEFF DOMINGUEZ, AMANDEEP Patel Ot 577.9 12/29/2014 STEFF DOMINGUEZ, AMANDEEP Patel Ot 599.70 12/29/2014 STEFF DOMINGUEZ, AMANDEEP Patel Ot V13.02 12/29/2014 KEENAN GUTIERREZ Ot V76.12 12/29/2014 STEFF DOMINGUEZ, AMANDEEP Patel Ot 577.9 12/29/2014 STEFF DOMINGUEZ, AMANDEEP Patel Ot V81.5 12/29/2014 GLENNY DOMINGUEZ, INESSA Ray Ot K21.9 12/29/2014 GLENNY DOMINGUEZ, INESSA M Ot Z01.818 01/13/2015 GLENNY DOMINGUEZ, INESSA M Ot K31.84 03/07/2015 STEFF DOMINGUEZ, AMANDEEP A Ot 577.9 03/07/2015 STEFF DOMINGUEZ, AMANDEEP A Ot 599.70 03/07/2015 STEFF DOMINGUEZ, AMANDEEP A Ot V13.02 03/07/2015 QUICK, KEENAN Chicas MATERIAL CUTTER Ot V76.12 03/07/2015 STEFF DOMINGUEZ, AMANDEEP A Ot 577.9 03/07/2015 STEFF DOMINGUEZ, AMANDEEP A Ot V81.5 03/07/2015 GLENNY DOMINGUEZ, INESSA M Ot K21.9 03/07/2015 GLENNY DOMINGUEZ, INESSA M Ot Z01.818 03/07/2015 GLENNY DOMINGUEZ, INESSA M Ot K31.84 03/07/2015 STEFF DOMINGUEZ, AMANDEEP A Ot 577.9 03/07/2015 STEFF DOMINGUEZ, AMANDEEP A Ot 599.70 03/07/2015 STEFF DOMINGUEZ, AMANDEEP A Ot V13.02 03/07/2015 QUICK, KEENAN Chicas MATERIAL CUTTER Ot V76.12 03/07/2015 STEFF DOMINGUEZ, AMANDEEP A Ot 577.9 03/07/2015 STEFF DOMINGUEZ, AMANDEEP A Ot V81.5 03/07/2015 GLENNY DOMINGUEZ, INESSA M Ot K21.9 03/07/2015 GLENNY DOMINGUEZ, INESSA M Ot Z01.818 03/07/2015 GLENNY DOMINGUEZ, INESSA M Ot K31.84 03/07/2015 STEFF DOMINGUEZ, AMANDEEP A Ot 577.9 03/07/2015 STEFF DOMINGUEZ, AMANDEEP A Ot 599.70 03/07/2015 STEFF DOMINGUEZ, AMANDEEP A Ot V13.02 03/07/2015 BRENDA, KEENAN Chicas MATERIAL CUTTER Ot V76.12 03/07/2015 STEFF DOMINGUEZ, AMANDEEP A Ot 577.9 03/07/2015 STEFF DOMINGUEZ, AMANDEEP A Ot V81.5 03/07/2015 GLENNY DOMINGUEZ, INESSA M Ot K21.9 03/07/2015 GLENNY DOMINGUEZ, INESSA M Ot Z01.818 03/07/2015 GLENNY DOMINGUEZ, INESSA M Ot K31.84 03/08/2015 JANIS BENNETT, SHAKEEL S Ot E11.9 TYPE 2 DIABETES MELLITUS WITHOUT COMPLIC 03/08/2015 MELANYNDER , SHAKEEL S Ot I95.0 IDIOPATHIC HYPOTENSION 03/08/2015 MELANYNDER DO, SHAKEEL S Ot N28.9 DISORDER OF KIDNEY AND URETER, UNSPECIFI 03/08/2015 MELANYNDER DO, SHAKEEL S Ot R11.0 NAUSEA 03/08/2015 MELANYNDER , SHAKEEL S Ot R20.2 PARESTHESIA OF SKIN 03/08/2015 MELANYNDER DO, SHAKEEL S Ot R42 DIZZINESS AND GIDDINESS 03/08/2015 MELANYNDER , SHAKEEL S Ot Z79.4 FCI (CURRENT) USE OF INSULIN 03/08/2015 JANIS BENNETT, SHAKEEL S Ot Z86.73 PRSNL HX OF TIA (TIA), AND CEREB INFRC W 03/13/2015 STEFF DOMINGUEZ, AMANDEEP A Ot 577.9 03/13/2015 STEFF DOMINGUEZ, AMANDEEP A Ot 599.70 03/13/2015 STEFF DOMINGUEZ, AMANDEEP A Ot V13.02 03/13/2015 KEENAN GUTIERREZ Ot V76.12 03/13/2015 STEFF DOMINGUEZ, AMANDEEP A Ot 577.9 03/13/2015 STEFF DOMINGUEZ, AMANDEEP A Ot V81.5 03/13/2015 GLENNY DOMINGUEZ, INESSA M Ot K21.9 03/13/2015 GLENNY DOMINGUEZ, INESSA Ray Ot Z01.818 03/13/2015 GLENNY DOMINGUEZ, INESSA M Ot K31.84 04/15/2015 STEFF DOMINGUEZ, AMANDEEP A Ot 577.9 04/15/2015 STEFF DOMINGUEZ, AMANDEEP A Ot 599.70 04/15/2015 STEFF DOMINGUEZ, AMANDEEP A Ot V13.02 04/15/2015 KEENAN GUTIERREZ MATERIAL CUTTER Ot V76.12 04/15/2015 STEFF DOMINGUEZ, AMANDEEP A Ot 577.9 04/15/2015 STEFF DOMINGUEZ, AMANDEEP A Ot V81.5 04/15/2015 GLENNY DOMINGUEZ, INESSA M Ot K21.9 04/15/2015 GLENNY DOMINGUEZ, INESSA M Ot Z01.818 04/15/2015 GLENNY DOMINGUEZ, INESSA Ray Ot K31.84 05/06/2015 SHAKEEL BRUCE DO S Ot M81.0 05/13/2015 KEENAN GUTIERREZ Ot Z12.31 05/21/2016 AMANDEEP ARTIS MD Ot 577.9 PANCREATIC DISEASE NOS 05/21/2016 STEFF DOMINGUEZ, AMANDEEP Patel Ot 599.70 HEMATURIA, UNSPECIFIED 05/21/2016 STEFF DOMINGUEZ, AMANDEEP Patel Ot V13.02 PERSONAL HISTORY, URINARY (TRACT) INFECT 05/21/2016 KEENAN GUTIERREZ Ot V76.12 OTH SCREEN MAMMO-MALIGN NEOPLASM OF PAM 05/21/2016 AMANDEEP ARTIS MD Ot 577.9 PANCREATIC DISEASE NOS 05/21/2016 AMANDEEP ARTIS MD Ot V81.5 SCREEN FOR NEPHROPATHY 05/21/2016 GLENNY DOMINGUEZ, INESSA Ray Ot K21.9 GASTRO-ESOPHAGEAL REFLUX DISEASE WITHOUT 05/21/2016 INESSA MURRIETA MD Ot Z01.818 ENCOUNTER FOR OTHER PREPROCEDURAL EXAMIN 05/21/2016 GLENNY DOMINGUEZ, INESSA Ray Ot K31.84 GASTROPARESIS 05/21/2016 SHAKEEL BRUCE DO S Ot M81.0 AGE-RELATED OSTEOPOROSIS W/O CURRENT PAT 05/21/2016 KENEAN GUTIERREZ Ot Z12.31 ENCNTR SCREEN MAMMOGRAM FOR MALIGNANT NE Procedures Results Test Result Range Capillary blood glucose measurement by glucometer (mass/volume) - 05/21/16 14: 37 Capillary blood glucose measurement by glucometer (mass/volume) 59 mg/dL 70-110 Complete blood count (CBC) with automated white blood cell (WBC) differential - 05/21/16 14:40 Blood leukocytes automated count (number/volume) 11.8 10*3/ uL 4.3-11.0 Blood erythrocytes automated count (number/volume) 4.42 10*6 /uL 4.35-5.85 Venous blood hemoglobin measurement (mass/volume) 12.0 g/dL 11.5-16.0 Blood hematocrit (volume fraction) 37 % 35-52 Automated erythrocyte mean corpuscular volume 83 [foz_us] 80-99 Automated erythrocyte mean corpuscular hemoglobin (mass per erythrocyte) 27 pg 25-34 Automated erythrocyte mean corpuscular hemoglobin concentration measurement ( mass/volume) 33 g/dL 32-36 Automated erythrocyte distribution width ratio 14.2 % 10.0-14.5 Automated blood platelet count (count/volume) 419 10*3/uL 130-400 Automated blood platelet mean volume measurement 10.2 [foz_ us] 7.4-10.4 Automated blood neutrophils/100 leukocytes 79 % 42-75 Automated blood lymphocytes/100 leukocytes 13 % 12-44 Blood monocytes/100 leukocytes 8 % 0-12 Automated blood eosinophils/100 leukocytes 1 % 0-10 Automated blood basophils/100 leukocytes 0 % 0-10 Blood neutrophils automated count (number/volume) 9.3 10*3 1.8-7.8 Blood lymphocytes automated count (number/volume) 1.5 10*3 1.0-4.0 Blood monocytes automated count (number/volume) 0.9 10*3 0.0-1.0 Automated eosinophil count 0.1 10*3/uL 0.0-0.3 Automated blood basophil count (count/volume) 0.0 10*3/uL 0.0-0.1 PT panel in platelet poor plasma by coagulation assay - 05/21/16 14:40 Prothrombin time (PT) in platelet poor plasma by coagulation assay 27.0 s 12.2-14.7 INR in platelet poor plasma or blood by coagulation assay 2.5 0.8-1.4 Activated partial thromboplastin time (aPTT) in platelet poor plasma bycoagulation assay - 05/21/16 14:40 Activated partial thromboplastin time (aPTT) in platelet poor plasma bycoagulation assay 52 s 24-35 Comprehensive metabolic panel - 05/21/16 14:40 Serum or plasma sodium measurement (moles/volume) 141 mmol/ L 135-145 Serum or plasma potassium measurement (moles/volume) 3.5 mmol/L 3.6-5.0 Serum or plasma chloride measurement (moles/volume) 106 mmol /L 98-107 Carbon dioxide 21 mmol/L 21-32 Serum or plasma anion gap determination (moles/volume) 14 mmol/L 5-14 Serum or plasma urea nitrogen measurement (mass/volume) 14 mg/dL 7-18 Serum or plasma creatinine measurement (mass/volume) 1.76 mg /dL 0.60-1.30 Serum or plasma urea nitrogen/creatinine mass ratio 8 NRG Serum or plasma creatinine measurement with calculation of estimated glomerular filtration rate 29 NRG Serum or plasma glucose measurement (mass/volume) 55 mg/dL 70-105 Serum or plasma calcium measurement (mass/volume) 9.4 mg/dL 8.5-10.1 Serum or plasma total bilirubin measurement (mass/volume) 0.6 mg/dL 0.1-1.0 Serum or plasma alkaline phosphatase measurement (enzymatic activity/volume) 66 U/L 40-136 Serum or plasma aspartate aminotransferase measurement (enzymatic activity/ volume) 18 U/L 5-34 Serum or plasma alanine aminotransferase measurement (enzymatic activity/volume ) 15 U/L 0-55 Serum or plasma protein measurement (mass/volume) 6.9 g/dL 6.4-8.2 Serum or plasma albumin measurement (mass/volume) 3.7 g/dL 3.2-4.5 Serum or plasma troponin i.cardiac measurement (mass/volume) - 05/21/16 14:40 Serum or plasma troponin i.cardiac measurement (mass/volume) < ng/mL <0.30 Capillary blood glucose measurement by glucometer (mass/volume) - 05/21/16 15: 51 Capillary blood glucose measurement by glucometer (mass/volume) 87 mg/dL 70-110 Encounters ACCT No. Visit Date/Time Discharge Status Pt. Type Provider Facility Loc./Unit Complaint [id number] 11/03/2013 15:38:40 11/03/2013 23: 59:59 [facility] Outpatient Jose Mckeon
== END 2016-05-21 16:10 | disposition home or self-care (01) ==
LOC: EDUNIT# 14:05 → ER 14:06
DX: S42.255A Nondisplaced fracture of greater tuberosity of left humerus, initial encounter for closed fracture (principal); M47.814 Spondylosis without myelopathy or radiculopathy, thoracic region; M47.812 Spondylosis without myelopathy or radiculopathy, cervical region; E11.649 Type 2 diabetes mellitus with hypoglycemia without coma; I10 Essential (primary) hypertension; Z96.41 Presence of insulin pump (external) (internal); W17.89XA Other fall from one level to another, initial encounter; Y92.018 Other place in single-family (private) house as the place of occurrence of the external cause; Y99.8 Other external cause status
CPT/HCPCS: 36415; 71010; 71250; 72125; 72128; 73030; 80053; 82962; 84484; 85025; 85610; 85730; 93041; 96361; 96374

== ENCOUNTER → 2016-09-22 | Outpatient (CLI) | payer MEDICARE, OTHER ==
[~2016-09-22] MED LIST changes: +TRAM-42 PO
--- NOTE | 2016-09-22 14:25 | Diagnostic Imaging Report ---
PROCEDURE: MRI left upper extremity without contrast. TECHNIQUE: Multiplanar, multisequence non contrast-enhanced MRI of the left upper extremity was accomplished. INDICATION: Shoulder fracture from 04/2016. Increasing pain with decreasing range of motion. FINDINGS: There is an avulsion injury at the humeral tuberosity which was noted on previous plain film. There has been superior and medial displacement of the fragment since previous shoulder x-ray. There is marked edema within the adjacent humeral head. The supraspinatus tendon is markedly thickened and edematous. The articulating surface of the humerus appears normal and is in good alignment with the glenohumeral joint. The infraspinatus and subscapularis tendons are intact with mild tendinopathy noted. There is small joint effusion. No definite labral tears demonstrated. There is normal bulk of the surrounding muscles of the shoulder. There is fluid within the AC joint which does appear to be mildly widened. There is no superior displacement of the clavicle at the AC joint. The coracoclavicular ligaments appear intact. The acromioclavicular ligament does appear to be intact as well. No bony edema demonstrated at this time. IMPRESSION: 1. Avulsion injury of the humeral tuberosity with approximately a 12 mm fragment which has been displaced superiorly and medially since previous x-ray in April. This has retracted approximately 8 mm. 2. There is associated rather marked tendinopathy of the supraspinatus tendon. 3. Edema within the AC joint as described. Dictated by: Dictated on workstation # [id number]
== END ==
LOC: RAD 12:57
PROVIDERS: ATTEND Orthopaedic Surgery
DX: S42.252G Displaced fracture of greater tuberosity of left humerus, subsequent encounter for fracture with delayed healing (principal); M75.92 Shoulder lesion, unspecified, left shoulder; R60.0 Localized edema; X58.XXXA Exposure to other specified factors, initial encounter; Y99.8 Other external cause status
CPT/HCPCS: 73221

== ENCOUNTER 2017-05-01 06:37 | Inpatient (IN) | payer MEDICARE, MEDICAID ==
[~2017-05-01] VITALS: Ht 165.1 cm; Wt 80.3 kg
[~2017-05-01 06:37] MED LIST changes: -FERR-74 PO; +FERR325T18 PO; +WARF3TAB56 PO; -WARF3TAB6 PO
--- OUTSIDE RECORDS SUMMARY | 2017-05-01 06:44 | XMS REPORT | Clinical Summary ---
Author Author Admin, QIE Organization [facility] Address Unknown Phone Unavailable Allergies, Adverse Reactions, [...] 1000 UNIT CAPS 1 po qd CHOLECALCIFEROL 34655038567 Active Stephanie Devlinr Active VITAMIN C 1000 MG ORAL TABS 1 tab by mouth daily ASCORBIC ACID 35877807487 Active Stephanie Devlinr Active RA VITAMIN B-12 100 MCG ORAL TABS 1 tab by mouth daily CYANOCOBALAMIN 98399636227 Active Stephanie Devlinr Active VISION FORMULA/LUTEIN ORAL TABS 1 tab by mouth daily MULTIPLE VITAMINS-MINERALS 99103827185 Active Stephanie Devlinr Active CALCIUM MAGNESIUM 750 300-300 MG ORAL TABS 1 tab by mouth daily CALCIUM-MAGNESIUM 95281650643 Active Baldemar Active FISH OIL 1000 MG CPDR 1 pill by mouth daily for cholesterol OMEGA-3 FATTY ACIDS 33968700915 Active Baldemar Active ATORVASTATIN CALCIUM 10 MG TABS 1 pill by mouth nightly, for cholesterol 2015 ATORVASTATIN CALCIUM 15077759288 Active Baldemar Active CITALOPRAM HYDROBROMIDE 20 MG TABS 1 tablet by mouth daily CITALOPRAM HYDROBROMIDE 61511589010 Active Baldemar Active TRIMETHOPRIM 100 MG ORAL TABS 1 tab by mouth daily TRIMETHOPRIM 95108866840 Active Baldemar Active COUMADIN 2.5 MG TAB WARFARIN SODIUM 52681229021 Active Baldemar Active COREG CR 20 MG ORAL [id number] 1 tab by mouth daily CARVEDILOL PHOSPHATE 37091661277 Active Baldemar Active PANTOPRAZOLE SODIUM 40 MG TBEC 1 pill by mouth daily PANTOPRAZOLE SODIUM 26993320118 Active Baldemar Active METFORMIN HCL 1000 MG TABS 1 tablet by mouth daily METFORMIN HCL 36524427666 Active Baldemar Active CIPRO 500 MG TAB 1 tablet two times daily CIPROFLOXACIN HCL 25846260065 No Longer Active Ana Swanson Active CIPRO 500 MG TAB 1 tablet two times daily CIPRO 500 MG TAB 833555 CIPROFLOXACIN HCL Inactive Vital Signs Date Name [...] negative Encounters Code Encounter Date Provider Facility CPT-23093 Level 3 Est. Patient 22:47:15 OSEAS Laughlin MD [facility] CPT-60347 Level 3 New Patient 21:44:21 CDT Kari Laughlin MD [facility] Procedures Code Procedure Name Date Entry Date Standard Description CPT-70365 Urine Dip (Floor Use Only) 22:47:16 RISK CONTROL ANALYST CPT-41358 Insert non indwelling bld cath 21:44:21 CDT CPT-62157 Bladder Scan 21:44:21 CDT
--- OUTSIDE RECORDS SUMMARY | 2017-05-01 06:44 | XMS REPORT | Clinical Summary ---
Author Author Admin, E Organization [facility] Address Unknown Phone Unavailable Allergies, Adverse [...] 1 tablet two times daily CIPROFLOXACIN HCL 48758392741 Active Ana Swanson Active CIPRO 500 MG TAB 1 tablet two times daily CIPROFLOXACIN HCL 16213177113 No Longer Active Ana Swanson Active VITAMIN D3 1000 UNIT CAPS 1 po qd CHOLECALCIFEROL 43059499858 Active Baldemar Active VITAMIN C 1000 MG ORAL TABS 1 tab by mouth daily ASCORBIC ACID 09496198930 Active Baldemar Active RA VITAMIN B-12 100 MCG ORAL TABS 1 tab by mouth daily CYANOCOBALAMIN 12731064158 Active Baldemar Active VISION FORMULA/LUTEIN ORAL TABS 1 tab by mouth daily MULTIPLE VITAMINS-MINERALS 28095390328 Active Baldemar Active CALCIUM MAGNESIUM 750 300-300 MG ORAL TABS 1 tab by mouth daily CALCIUM-MAGNESIUM 69084626998 Active Baldemar Active FISH OIL 1000 MG CPDR 1 pill by mouth daily for cholesterol OMEGA-3 FATTY ACIDS 60073493182 Active Baldemar Active ATORVASTATIN CALCIUM 10 MG TABS 1 pill by mouth nightly, for cholesterol 2015 ATORVASTATIN CALCIUM 16125632816 Active Stephanie Mcdermott Active CITALOPRAM HYDROBROMIDE 20 MG TABS 1 tablet by mouth daily CITALOPRAM HYDROBROMIDE 14160066672 Active Stephanie Devlinr Active TRIMETHOPRIM 100 MG ORAL TABS 1 tab by mouth daily TRIMETHOPRIM 78381912573 Active Stephanie Devlinr Active COUMADIN 2.5 MG TAB WARFARIN SODIUM 89736826324 Active Stephanie Devlinr Active COREG CR 20 MG ORAL [id number] 1 tab by mouth daily CARVEDILOL PHOSPHATE 61525239918 Active Stephanie Mcdermott Active PANTOPRAZOLE SODIUM 40 MG TBEC 1 pill by mouth daily PANTOPRAZOLE SODIUM 58284640574 Active Stephanie Mcdermott Active METFORMIN HCL 1000 MG TABS 1 tablet by mouth daily METFORMIN HCL 04757154327 Active Stephanie Devlinr Active CIPRO 500 MG TAB 1 tablet two times daily CIPROFLOXACIN HCL 98735612378 No Longer Active Ana Swanson Active CIPRO 500 MG TAB 1 tablet two times daily CIPRO 500 MG TAB 324170 CIPROFLOXACIN HCL Inactive CIPRO 500 MG TAB 1 tablet two times daily CIPRO 500 MG TAB 367018 CIPROFLOXACIN HCL Inactive Vital Signs Date Name [...] negative Encounters Code Encounter Date Provider Facility CPT-79930 Level 3 Est. Patient 23:38:20 CDT Kari Laughlin MD [facility] CPT-95070 Level 3 Est. Patient 22:47:15 HIRED HAND Kari Laughlin MD [facility] CPT-90900 Level 3 New Patient 21:44:21 CDT Kari Laughlin MD [facility] Procedures Code Procedure Name Date Entry Date Standard Description CPT-40159 Bladder Scan 23:38:21 CDT CPT-18841 Urine Dip (Floor Use Only) 22:47:16 HIRED HAND CPT-44225 Insert non indwelling bld cath 21:44:21 CDT CPT-64593 Bladder Scan 21:44:21 CDT
--- OUTSIDE RECORDS SUMMARY | 2017-05-01 06:44 | XMS REPORT | Clinical Summary ---
Author Author [facility] Organization [facility] Address Unknown Phone Unavailable Care Team Providers Care Piano Professor Name Role Phone PCP Unavailable Source Comments Some departments are not documenting in the electronic medical record. If you do not see the information that you expected, contact Release of Information in the Health Information Management department at [phone] for further assistance in locating additional records.[facility] Allergies Active Allergy Reactions Severity Noted Date Comments Penicillins 12/13/2005 Allergy recorded in SMS: Penicillin~Reactions: HIVES Sulfa (Sulfonamide 12/13/2005 Allergy recorded in SMS: Antibiotics) Sulfa~Reactions: HIVES Current Medications Not on file Active Problems Not on file Social History Tobacco Use Types Packs/Day Years Used Date Never Assessed Sex Assigned at Date Recorded Not on file Last Filed Vital Signs Not on file Plan of Treatment Health Maintenance Due Date Last Done Comments HEPATITIS C SCREENING 1950 PHYSICAL (COMPREHENSIVE) 1957 EXAM PERTUSSIS VACCINE 1961 TETANUS VACCINE 1967 BREAST CANCER SCREENING 1990 COLORECTAL CANCER 02/29/2000 SCREENING SHINGLES VACCINE 2010 OSTEOPOROSIS SCREENING 2015 PREVNAR/PNEUMOVAX (#1) 2015 INFLUENZA VACCINE 09/26/2017 Results Not on filefrom Last 3 Months
--- OUTSIDE RECORDS SUMMARY | 2017-05-01 06:44 | XMS REPORT | Clinical Summary ---
Author Author Admin, CARLA Organization [facility] Address Unknown Phone Unavailable Allergies, [...] Status Provider Patient Instruction CIPRO 500 MG ORAL TABLET 1 tablet two times daily CIPROFLOXACIN HCL 31140799099 No Longer Active Ana Swanson Active CIPRO 500 MG ORAL TABLET 1 tablet two times daily CIPROFLOXACIN HCL 96547401715 No Longer Active Ana Swanson Active VITAMIN D3 1000 UNIT ORAL CAPSULE 1 po qd CHOLECALCIFEROL 42137927059 Active Baldemar Active VITAMIN C 1000 MG ORAL TABLET 1 tab by mouth daily ASCORBIC ACID 22525414980 Active Baldemar Active RA VITAMIN B-12 100 MCG ORAL TABLET 1 tab by mouth daily CYANOCOBALAMIN 52553627494 Active Baldemar Active VISION FORMULA/LUTEIN ORAL TABLET 1 tab by mouth daily MULTIPLE VITAMINS-MINERALS 46094203868 Active Baldemar Active CALCIUM MAGNESIUM 750 300-300 MG ORAL TABLET 1 tab by mouth daily CALCIUM-MAGNESIUM 60935367179 Active Baldemar Active FISH OIL 1000 MG ORAL CAPSULE DELAYED RELEASE 1 pill by mouth daily for cholesterol OMEGA-3 FATTY ACIDS 42589559428 Active Baldemar Active ATORVASTATIN CALCIUM 10 MG ORAL TABLET 1 pill by mouth nightly, for cholesterol ATORVASTATIN CALCIUM 42465900416 Active Stephanie Mcdermott Active CITALOPRAM HYDROBROMIDE 20 MG ORAL TABLET 1 tablet by mouth daily CITALOPRAM HYDROBROMIDE 45988524323 Active Stephanie Mcdermott Active TRIMETHOPRIM 100 MG ORAL TABLET 1 tab by mouth daily TRIMETHOPRIM 01633353150 Active Stephanie Mcdermott Active COUMADIN 2.5 MG ORAL TABLET WARFARIN SODIUM 18923006510 Active Stephanie Mcdermott Active COREG CR 20 MG ORAL CAPSULE EXTENDED RELEASE 24 HOUR 1 tab by mouth daily CARVEDILOL PHOSPHATE 35377959575 Active Stephanie Mcdermott Active PANTOPRAZOLE SODIUM 40 MG ORAL TABLET DELAYED RELEASE 1 pill by mouth daily PANTOPRAZOLE SODIUM 92128924684 Active Stephanie Mcdermott Active METFORMIN HCL 1000 MG ORAL TABLET 1 tablet by mouth daily METFORMIN HCL 46028976753 Active Stephanie Mcdermott Active CIPRO 500 MG ORAL TABLET 1 tablet two times daily CIPROFLOXACIN HCL 11706886609 No Longer Active Ana Swanson Active CIPRO 500 MG ORAL TABLET 1 tablet two times daily CIPRO 500 MG ORAL TABLET 240023 CIPROFLOXACIN HCL Inactive CIPRO 500 MG ORAL TABLET 1 tablet two times daily CIPRO 500 MG ORAL TABLET 629109 CIPROFLOXACIN HCL Inactive CIPRO 500 MG ORAL TABLET 1 tablet two times daily CIPRO 500 MG ORAL TABLET 724151 CIPROFLOXACIN HCL Inactive Advance Directives Directive Description Start Date PERMISSION TO SHARE Vital Signs Date Name Value Unit Range Description blood pressure, diastolic 70 mm[Hg] BP jaeger blood pressure, systolic 130 mm[Hg] BP sys pulse rate E&M 76 /min Heart rate temperature E&M 98.3 [degF] Body temperature weight E&M 177 [lb_av] Weight Measured blood pressure, diastolic 72 mm[Hg] BP jaeger blood pressure, systolic 130 mm[Hg] BP sys pulse rate E&M 74 /min Heart rate temperature E&M 97.8 [degF] Body temperature weight E&M 170 [lb_av] Weight Measured blood pressure, diastolic 92 mm[Hg] BP jaeger blood pressure, systolic 146 mm[Hg] BP sys pulse rate E&M 72 /min Heart rate temperature E&M 97.6 [degF] Body temperature weight E&M 185 [lb_av] Weight Measured Diagnostic Results Date Name Value Unit Range Description Office Visit: 3-Month Followup on UTIs - Chemistry protein, total urine random negative mg/dL RBC, urine, dipstick non-hemolyzed trace Office Visit: 3-Month Followup on UTIs - Urinalysis ketones, urine, by test strip negative bilirubin, urine negative glucose, urine, semiquantitative negative pH, urine, semiquantitative 7 specific gravity, urine 1.010 urine color yellow appearance, urine clear culture status No urinalysis, routine Clean Catch leukocyte esterase, urine, by dipstick negative nitrite, urine, semiquantitative negative urobilinogen, urine, semiquantitative (dipstick) negative protein, urine, semiquantitative (dipstick) negative Office Visit: Follow up urinary retention - Chemistry RBC, urine, dipstick negative protein, total urine random negative mg/dL Office Visit: Follow up urinary retention - Urinalysis pH, urine, semiquantitative 6.5 specific gravity, urine 1.005 urinalysis, routine Clean Catch culture status No ketones, urine, by test strip negative bilirubin, urine negative glucose, urine, semiquantitative negative urine color yellow appearance, urine clear leukocyte esterase, urine, by dipstick negative nitrite, urine, semiquantitative negative urobilinogen, urine, semiquantitative (dipstick) negative protein, urine, semiquantitative (dipstick) negative Office Visit: Followup on Incomplete Bladder Emptying - Chemistry RBC, urine, dipstick non-hemolyzed trace Office Visit: Followup on Incomplete Bladder Emptying - Urinalysis ketones, urine, by test strip negative bilirubin, urine negative glucose, urine, semiquantitative negative specific gravity, urine 1.020 pH, urine, semiquantitative 6.5 urinalysis, routine Clean Catch culture status No urine color yellow appearance, urine clear leukocyte esterase, urine, by dipstick negative nitrite, urine, semiquantitative negative urobilinogen, urine, semiquantitative (dipstick) negative protein, urine, semiquantitative (dipstick) negative Encounters Code Encounter Date Provider Facility CPT-39073 Level 3 Est. Patient 13:07:23 ELECTRONIC FUNDS TRANSFER COORDINATOR Kari Laughlin MD [facility] CPT-76425 Level 3 Est. Patient 23:38:20 CDT Kari Laughlin MD [facility] CPT-32476 Level 3 Est. Patient 22:47:15 ELECTRONIC FUNDS TRANSFER COORDINATOR Kari Laughlin MD [facility] CPT-53112 Level 3 New Patient 21:44:21 CDT Kari Laughlin MD [facility] Procedures Code Procedure Name Date Entry Date Standard Description CPT-16508 Bladder Scan 13:07:24 ELECTRONIC FUNDS TRANSFER COORDINATOR CPT-46360 Bladder Scan 23:38:21 CDT CPT-42900 Urine Dip (Floor Use Only) 22:47:16 ELECTRONIC FUNDS TRANSFER COORDINATOR CPT-26581 Insert non indwelling bld cath 21:44:21 CDT CPT-59305 Bladder Scan 21:44:21 CDT
--- OUTSIDE RECORDS SUMMARY | 2017-05-01 06:45 | XMS REPORT | Clinical Summary ---
Author Author Admin, CARLA Organization [facility] Address Unknown Phone Unavailable Allergies, [...] 1 tablet two times daily CIPROFLOXACIN HCL 64276092490 No Longer Active Ana Swanson Active CIPRO 500 MG ORAL TABLET 1 tablet two times daily CIPROFLOXACIN HCL 33584129839 No Longer Active Ana Swanson Active VITAMIN D3 1000 UNIT ORAL CAPSULE 1 po qd CHOLECALCIFEROL 08379645254 Active Baldemar Active VITAMIN C 1000 MG ORAL TABLET 1 tab by mouth daily ASCORBIC ACID 01355917944 Active Baldemar Active RA VITAMIN B-12 100 MCG ORAL TABLET 1 tab by mouth daily CYANOCOBALAMIN 87583423434 Active Baldemar Active VISION FORMULA/LUTEIN ORAL TABLET 1 tab by mouth daily MULTIPLE VITAMINS-MINERALS 32631930300 Active Baldemar Active CALCIUM MAGNESIUM 750 300-300 MG ORAL TABLET 1 tab by mouth daily CALCIUM-MAGNESIUM 45142022740 Active Baldemar Active FISH OIL 1000 MG ORAL CAPSULE DELAYED RELEASE 1 pill by mouth daily for cholesterol OMEGA-3 FATTY ACIDS 55835772913 Active Baldemar Active ATORVASTATIN CALCIUM 10 MG ORAL TABLET 1 pill by mouth nightly, for cholesterol ATORVASTATIN CALCIUM 86788575725 Active Stephanie Mcdermott Active CITALOPRAM HYDROBROMIDE 20 MG ORAL TABLET 1 tablet by mouth daily CITALOPRAM HYDROBROMIDE 68185116329 Active Stephanie Mcdermott Active TRIMETHOPRIM 100 MG ORAL TABLET 1 tab by mouth daily TRIMETHOPRIM 94732145849 Active Stephanie Mcdermott Active COUMADIN 2.5 MG ORAL TABLET WARFARIN SODIUM 18895099905 Active Stephanie Mcdermott Active COREG CR 20 MG ORAL CAPSULE EXTENDED RELEASE 24 HOUR 1 tab by mouth daily CARVEDILOL PHOSPHATE 13204412152 Active Stephanie Mcdermott Active PANTOPRAZOLE SODIUM 40 MG ORAL TABLET DELAYED RELEASE 1 pill by mouth daily PANTOPRAZOLE SODIUM 01643717511 Active Stephanie Mcdermott Active METFORMIN HCL 1000 MG ORAL TABLET 1 tablet by mouth daily METFORMIN HCL 22941883075 Active Stephanie Mcdermott Active CIPRO 500 MG ORAL TABLET 1 tablet two times daily CIPROFLOXACIN HCL 83721197557 No Longer Active Ana Swanson Active CIPRO 500 MG ORAL TABLET 1 tablet two times daily CIPRO 500 MG ORAL TABLET 791372 CIPROFLOXACIN HCL Inactive CIPRO 500 MG ORAL TABLET 1 tablet two times daily CIPRO 500 MG ORAL TABLET 827570 CIPROFLOXACIN HCL Inactive CIPRO 500 MG ORAL TABLET 1 tablet two times daily CIPRO 500 MG ORAL TABLET 171633 CIPROFLOXACIN HCL Inactive Advance Directives Directive Description [...] negative Encounters Code Encounter Date Provider Facility CPT-33261 Level 3 Est. Patient 13:07:23 MANAGER LAW Kari Laughlin MD [facility] CPT-64767 Level 3 Est. Patient 23:38:20 CDT Kari Laughlin MD [facility] CPT-33786 Level 3 Est. Patient 22:47:15 MANAGER LAW Kari Laughlin MD [facility] CPT-00871 Level 3 New Patient 21:44:21 CDT Kari Laughlin MD [facility] Procedures Code Procedure Name Date Entry Date Standard Description CPT-55139 Bladder Scan 13:07:24 MANAGER LAW CPT-59497 Bladder Scan 23:38:21 CDT CPT-46000 Urine Dip (Floor Use Only) 22:47:16 MANAGER LAW CPT-76971 Insert non indwelling bld cath 21:44:21 CDT CPT-07187 Bladder Scan 21:44:21 CDT
--- OUTSIDE RECORDS SUMMARY | 2017-05-01 06:45 | XMS REPORT | Clinical Summary ---
Author Author Admin, E Organization [facility] Address Unknown Phone Unavailable Allergies, Adverse [...] 1 tablet two times daily CIPROFLOXACIN HCL 81316112865 No Longer Active Ana Swanson Active CIPRO 500 MG TAB 1 tablet two times daily CIPROFLOXACIN HCL 67674712147 No Longer Active Ana Swanson Active VITAMIN D3 1000 UNIT CAPS 1 po qd CHOLECALCIFEROL 83533482751 Active Baldemar Active VITAMIN C 1000 MG ORAL TABS 1 tab by mouth daily ASCORBIC ACID 67159497212 Active Baldemar Active RA VITAMIN B-12 100 MCG ORAL TABS 1 tab by mouth daily CYANOCOBALAMIN 61541420739 Active Baldemar Active VISION FORMULA/LUTEIN ORAL TABS 1 tab by mouth daily MULTIPLE VITAMINS-MINERALS 20272043112 Active Baldemar Active CALCIUM MAGNESIUM 750 300-300 MG ORAL TABS 1 tab by mouth daily CALCIUM-MAGNESIUM 88521301669 Active Baldemar Active FISH OIL 1000 MG CPDR 1 pill by mouth daily for cholesterol OMEGA-3 FATTY ACIDS 88580566457 Active Baldemar Active ATORVASTATIN CALCIUM 10 MG TABS 1 pill by mouth nightly, for cholesterol 2015 ATORVASTATIN CALCIUM 22226551737 Active Stephanie Devlinr Active CITALOPRAM HYDROBROMIDE 20 MG TABS 1 tablet by mouth daily CITALOPRAM HYDROBROMIDE 41180526796 Active Stephanie Devlinr Active TRIMETHOPRIM 100 MG ORAL TABS 1 tab by mouth daily TRIMETHOPRIM 22989331951 Active Stephanie Devlinr Active COUMADIN 2.5 MG TAB WARFARIN SODIUM 33060222842 Active Stephanie Devlinr Active COREG CR 20 MG ORAL [id number] 1 tab by mouth daily CARVEDILOL PHOSPHATE 63372385257 Active Stephanie Devlinr Active PANTOPRAZOLE SODIUM 40 MG TBEC 1 pill by mouth daily PANTOPRAZOLE SODIUM 98411721119 Active Stephanie Devlinr Active METFORMIN HCL 1000 MG TABS 1 tablet by mouth daily METFORMIN HCL 34242874423 Active Stephanie Devlinr Active CIPRO 500 MG TAB 1 tablet two times daily CIPROFLOXACIN HCL 25051427969 No Longer Active Ana Swanson Active CIPRO 500 MG TAB 1 tablet two times daily CIPRO 500 MG TAB 222530 CIPROFLOXACIN HCL Inactive CIPRO 500 MG TAB 1 tablet two times daily CIPRO 500 MG TAB 713046 CIPROFLOXACIN HCL Inactive CIPRO 500 MG TAB 1 tablet two times daily CIPRO 500 MG TAB 617463 CIPROFLOXACIN HCL Inactive Vital Signs Date Name Value Unit Range Description blood pressure, diastolic - 8462-4 92 mm[Hg] BP jaeger blood pressure, systolic - 8480-6 146 mm[Hg] BP sys pulse rate E&M - 8867-4 72 /min Heart rate temperature E&M 97.6 [degF] Body temperature weight E&M - 3141-9 [...] Visit: 3-Month Followup on UTIs - Chemistry RBC, urine, dipstick non-hemolyzed trace protein, total urine random negative mg/dL Office Visit: 3-Month Followup on UTIs - Urinalysis pH, urine, semiquantitative 7 specific gravity, urine 1.010 ketones, urine, by test strip negative bilirubin, urine negative glucose, urine, semiquantitative negative urine color yellow appearance, urine clear culture status No urinalysis, routine Clean Catch leukocyte esterase, urine, by dipstick negative nitrite, urine, semiquantitative negative urobilinogen, urine, semiquantitative (dipstick) negative protein, urine, semiquantitative (dipstick) negative Office Visit: CN-recurrent uti - Chemistry RBC, [...] negative Encounters Code Encounter Date Provider Facility CPT-87368 Level 3 Est. Patient 23:38:20 CDT Kari Laughlin MD [facility] CPT-28418 Level 3 Est. Patient 22:47:15 GUN FERTILIZER Kari Laughlin MD [facility] CPT-14093 Level 3 New Patient 21:44:21 CDT Kari Laughlin MD [facility] Procedures Code Procedure Name Date Entry Date Standard Description CPT-70600 Bladder Scan 23:38:21 CDT CPT-54710 Urine Dip (Floor Use Only) 22:47:16 GUN FERTILIZER CPT-08267 Insert non indwelling bld cath 21:44:21 CDT CPT-64788 Bladder Scan 21:44:21 CDT
--- OUTSIDE RECORDS SUMMARY | 2017-05-01 06:45 | XMS REPORT | Clinical Summary ---
Author Author Admin, CARLA Organization [facility] Address Unknown Phone Unavailable Allergies, Adverse [...] 1 tablet two times daily CIPROFLOXACIN HCL 55229631499 No Longer Active Ana Swanson Active CIPRO 500 MG ORAL TABLET 1 tablet two times daily CIPROFLOXACIN HCL 50145270590 No Longer Active Ana Swanson Active VITAMIN D3 1000 UNIT ORAL CAPSULE 1 po qd CHOLECALCIFEROL 25834234888 Active Baldemar Active VITAMIN C 1000 MG ORAL TABLET 1 tab by mouth daily ASCORBIC ACID 99109767315 Active Baldemar Active RA VITAMIN B-12 100 MCG ORAL TABLET 1 tab by mouth daily CYANOCOBALAMIN 01822964552 Active Baldemar Active VISION FORMULA/LUTEIN ORAL TABLET 1 tab by mouth daily MULTIPLE VITAMINS-MINERALS 62790186421 Active Baldemar Active CALCIUM MAGNESIUM 750 300-300 MG ORAL TABLET 1 tab by mouth daily CALCIUM-MAGNESIUM 42802013404 Active Baldemar Active FISH OIL 1000 MG ORAL CAPSULE DELAYED RELEASE 1 pill by mouth daily for cholesterol OMEGA-3 FATTY ACIDS 15633269515 Active Baldemar Active ATORVASTATIN CALCIUM 10 MG ORAL TABLET 1 pill by mouth nightly, for cholesterol ATORVASTATIN CALCIUM 27914770788 Active Stephanie Mcdermott Active CITALOPRAM HYDROBROMIDE 20 MG ORAL TABLET 1 tablet by mouth daily CITALOPRAM HYDROBROMIDE 74448823003 Active Stephanie Mcdermott Active TRIMETHOPRIM 100 MG ORAL TABLET 1 tab by mouth daily TRIMETHOPRIM 06612901956 Active Stephanie Devlinr Active COUMADIN 2.5 MG ORAL TABLET WARFARIN SODIUM 79106104040 Active Stephanie Mcdermott Active COREG CR 20 MG ORAL CAPSULE EXTENDED RELEASE 24 HOUR 1 tab by mouth daily CARVEDILOL PHOSPHATE 06519358120 Active Stephanie Mcdermott Active PANTOPRAZOLE SODIUM 40 MG ORAL TABLET DELAYED RELEASE 1 pill by mouth daily PANTOPRAZOLE SODIUM 10011143002 Active Stephanie Mcdermott Active METFORMIN HCL 1000 MG ORAL TABLET 1 tablet by mouth daily METFORMIN HCL 64542290665 Active Stephanie Mcdermott Active CIPRO 500 MG ORAL TABLET 1 tablet two times daily CIPROFLOXACIN HCL 69739251341 No Longer Active Ana Swanson Active CIPRO 500 MG ORAL TABLET 1 tablet two times daily CIPRO 500 MG ORAL TABLET 659054 CIPROFLOXACIN HCL Inactive CIPRO 500 MG ORAL TABLET 1 tablet two times daily CIPRO 500 MG ORAL TABLET 884547 CIPROFLOXACIN HCL Inactive CIPRO 500 MG ORAL TABLET 1 tablet two times daily CIPRO 500 MG ORAL TABLET 303814 CIPROFLOXACIN HCL Inactive Advance Directives Directive Description Start Date PERMISSION TO SHARE Vital Signs Date Name Value Unit Range Description blood pressure, diastolic 72 mm[Hg] BP jaeger [...] temperature weight E&M 185 [lb_av] Weight Measured blood pressure, diastolic 75 mm[Hg] BP jaeger blood pressure, systolic 120 mm[Hg] BP sys pulse rate E&M 77 /min Heart rate temperature E&M 98.6 [degF] Body temperature weight E&M 185 [lb_av] [...] negative Encounters Code Encounter Date Provider Facility CPT-44442 Level 3 Est. Patient 13:07:23 IN SCHOOL SUSPENSION COORDINATOR Kari Laughlin MD [facility] CPT-27313 Level 3 Est. Patient 23:38:20 CDT Kari Laughlin MD [facility] CPT-21154 Level 3 Est. Patient 22:47:15 IN SCHOOL SUSPENSION COORDINATOR Kari Laughlin MD [facility] CPT-14714 Level 3 New Patient 21:44:21 CDT Kari Laughlin MD [facility] Procedures Code Procedure Name Date Entry Date Standard Description CPT-89129 Bladder Scan 13:07:24 IN SCHOOL SUSPENSION COORDINATOR CPT-90014 Bladder Scan 23:38:21 CDT CPT-47590 Urine Dip (Floor Use Only) 22:47:16 IN SCHOOL SUSPENSION COORDINATOR CPT-34234 Insert non indwelling bld cath 21:44:21 CDT CPT-53004 Bladder Scan 21:44:21 CDT
--- OUTSIDE RECORDS SUMMARY | 2017-05-01 06:46 | XMS REPORT | Clinical Summary ---
Author Author Admin, E Organization [facility] Address Unknown Phone Unavailable Allergies, [...] 1 tablet two times daily CIPROFLOXACIN HCL 17484053251 No Longer Active Ana Swanson Active CIPRO 500 MG ORAL TABLET 1 tablet two times daily CIPROFLOXACIN HCL 50540533786 No Longer Active Ana Swanson Active VITAMIN D3 1000 UNIT ORAL CAPSULE 1 po qd CHOLECALCIFEROL 25965524369 Active Baldemar Active VITAMIN C 1000 MG ORAL TABLET 1 tab by mouth daily ASCORBIC ACID 75236841688 Active Baldemar Active RA VITAMIN B-12 100 MCG ORAL TABLET 1 tab by mouth daily CYANOCOBALAMIN 58474360902 Active Baldemar Active VISION FORMULA/LUTEIN ORAL TABLET 1 tab by mouth daily MULTIPLE VITAMINS-MINERALS 80544252206 Active Baldemar Active CALCIUM MAGNESIUM 750 300-300 MG ORAL TABLET 1 tab by mouth daily CALCIUM-MAGNESIUM 52410099723 Active Baldemar Active FISH OIL 1000 MG ORAL CAPSULE DELAYED RELEASE 1 pill by mouth daily for cholesterol OMEGA-3 FATTY ACIDS 94220816885 Active Baldemar Active ATORVASTATIN CALCIUM 10 MG ORAL TABLET 1 pill by mouth nightly, for cholesterol ATORVASTATIN CALCIUM 20449212895 Active Stephanie Mcdermott Active CITALOPRAM HYDROBROMIDE 20 MG ORAL TABLET 1 tablet by mouth daily CITALOPRAM HYDROBROMIDE 30663490830 Active Stephanie Mcdermott Active TRIMETHOPRIM 100 MG ORAL TABLET 1 tab by mouth daily TRIMETHOPRIM 40968090750 Active Stephanie Devlinr Active COUMADIN 2.5 MG ORAL TABLET WARFARIN SODIUM 55702100095 Active Stephanie Mcdermott Active COREG CR 20 MG ORAL CAPSULE EXTENDED RELEASE 24 HOUR 1 tab by mouth daily CARVEDILOL PHOSPHATE 97175823406 Active Stephanie Mcdermott Active PANTOPRAZOLE SODIUM 40 MG ORAL TABLET DELAYED RELEASE 1 pill by mouth daily PANTOPRAZOLE SODIUM 64845055260 Active Stephanie Mcdermott Active METFORMIN HCL 1000 MG ORAL TABLET 1 tablet by mouth daily METFORMIN HCL 93556041257 Active Stephanie Mcdermott Active CIPRO 500 MG ORAL TABLET 1 tablet two times daily CIPROFLOXACIN HCL 69717578154 No Longer Active Ana Swanson Active CIPRO 500 MG ORAL TABLET 1 tablet two times daily CIPRO 500 MG ORAL TABLET 080723 CIPROFLOXACIN HCL Inactive CIPRO 500 MG ORAL TABLET 1 tablet two times daily CIPRO 500 MG ORAL TABLET 086500 CIPROFLOXACIN HCL Inactive CIPRO 500 MG ORAL TABLET 1 tablet two times daily CIPRO 500 MG ORAL TABLET 563001 CIPROFLOXACIN HCL Inactive Advance Directives Directive Description [...] negative Encounters Code Encounter Date Provider Facility CPT-87377 Level 3 Est. Patient 13:07:23 DIET COUNSELOR Kari Laughlin MD [facility] Ant CPT-37362 Level 3 Est. Patient 23:38:20 CDT Kari Laughlin MD [facility] Ant CPT-42427 Level 3 Est. Patient 22:47:15 DIET COUNSELOR Kari Laughlin MD [facility] At[facility] CPT-69882 Level 3 New Patient 21:44:21 CDT Kari Laughlin MD [facility] Procedures Code Procedure Name Date Entry Date Standard Description CPT-85239 Bladder Scan 13:07:24 DIET COUNSELOR CPT-34489 Bladder Scan 23:38:21 CDT CPT-57121 Urine Dip (Floor Use Only) 22:47:16 DIET COUNSELOR CPT-98074 Insert non indwelling bld cath 21:44:21 CDT CPT-33246 Bladder Scan 21:44:21 CDT
--- OUTSIDE RECORDS SUMMARY | 2017-05-01 06:46 | XMS REPORT | Clinical Summary ---
Author Author Admin, QIE Organization [facility] Address Unknown Phone Unavailable Allergies, Adverse [...] 1000 UNIT CAPS 1 po qd CHOLECALCIFEROL 50120051480 Active Stephanie Devlinr Active VITAMIN C 1000 MG ORAL TABS 1 tab by mouth daily ASCORBIC ACID 16808593328 Active Stephanie Devlinr Active RA VITAMIN B-12 100 MCG ORAL TABS 1 tab by mouth daily CYANOCOBALAMIN 34685382006 Active Stephanie Devlinr Active VISION FORMULA/LUTEIN ORAL TABS 1 tab by mouth daily MULTIPLE VITAMINS-MINERALS 31368807519 Active Stephanie Devlinr Active CALCIUM MAGNESIUM 750 300-300 MG ORAL TABS 1 tab by mouth daily CALCIUM-MAGNESIUM 17845921164 Active Baldemar Active FISH OIL 1000 MG CPDR 1 pill by mouth daily for cholesterol OMEGA-3 FATTY ACIDS 52809899902 Active Baldemar Active ATORVASTATIN CALCIUM 10 MG TABS 1 pill by mouth nightly, for cholesterol 2015 ATORVASTATIN CALCIUM 67213203332 Active Baldemar Active CITALOPRAM HYDROBROMIDE 20 MG TABS 1 tablet by mouth daily CITALOPRAM HYDROBROMIDE 33344986549 Active Baldemar Active TRIMETHOPRIM 100 MG ORAL TABS 1 tab by mouth daily TRIMETHOPRIM 03668158684 Active Baldemar Active COUMADIN 2.5 MG TAB WARFARIN SODIUM 11139431590 Active Baldemar Active COREG CR 20 MG ORAL [id number] 1 tab by mouth daily CARVEDILOL PHOSPHATE 71294034984 Active Baldemar Active PANTOPRAZOLE SODIUM 40 MG TBEC 1 pill by mouth daily PANTOPRAZOLE SODIUM 62409477012 Active Baldemar Active METFORMIN HCL 1000 MG TABS 1 tablet by mouth daily METFORMIN HCL 58329188153 Active Baldemar Active CIPRO 500 MG TAB 1 tablet two times daily CIPROFLOXACIN HCL 55312615989 No Longer Active Ana Swanson Active CIPRO 500 MG TAB 1 tablet two times daily CIPRO 500 MG TAB 185614 CIPROFLOXACIN HCL Inactive Vital Signs Date Name [...] negative Encounters Code Encounter Date Provider Facility CPT-12020 Level 3 Est. Patient 22:47:15 OSEAS Laughlin MD [facility] Ant CPT-26443 Level 3 New Patient 21:44:21 CDT Kari Laughlin MD 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
--- OUTSIDE RECORDS SUMMARY | 2017-05-01 06:47 | XMS REPORT | Clinical Summary ---
Author Author Admin, E Organization [facility] Address Unknown Phone Unavailable Allergies, Adverse [...] 1 tablet two times daily CIPROFLOXACIN HCL 54544883490 No Longer Active Ana Swanson Active CIPRO 500 MG ORAL TABLET 1 tablet two times daily CIPROFLOXACIN HCL 76103698488 No Longer Active Ana Swanson Active VITAMIN D3 1000 UNIT ORAL CAPSULE 1 po qd CHOLECALCIFEROL 01205272009 Active Baldemar Active VITAMIN C 1000 MG ORAL TABLET 1 tab by mouth daily ASCORBIC ACID 41622381570 Active Baldemar Active RA VITAMIN B-12 100 MCG ORAL TABLET 1 tab by mouth daily CYANOCOBALAMIN 99760743910 Active Baldemar Active VISION FORMULA/LUTEIN ORAL TABLET 1 tab by mouth daily MULTIPLE VITAMINS-MINERALS 13842414919 Active Baldemar Active CALCIUM MAGNESIUM 750 300-300 MG ORAL TABLET 1 tab by mouth daily CALCIUM-MAGNESIUM 25798370089 Active Baldemar Active FISH OIL 1000 MG ORAL CAPSULE DELAYED RELEASE 1 pill by mouth daily for cholesterol OMEGA-3 FATTY ACIDS 03943022331 Active Baldemar Active ATORVASTATIN CALCIUM 10 MG ORAL TABLET 1 pill by mouth nightly, for cholesterol ATORVASTATIN CALCIUM 29438891873 Active Stephanie Mcdermott Active CITALOPRAM HYDROBROMIDE 20 MG ORAL TABLET 1 tablet by mouth daily CITALOPRAM HYDROBROMIDE 35756500454 Active Stephanie Mcdermott Active TRIMETHOPRIM 100 MG ORAL TABLET 1 tab by mouth daily TRIMETHOPRIM 57408733222 Active Stephanie Devlinr Active COUMADIN 2.5 MG ORAL TABLET WARFARIN SODIUM 41108569512 Active Stephanie Mcdermott Active COREG CR 20 MG ORAL CAPSULE EXTENDED RELEASE 24 HOUR 1 tab by mouth daily CARVEDILOL PHOSPHATE 95605581136 Active Stephanie Mcdermott Active PANTOPRAZOLE SODIUM 40 MG ORAL TABLET DELAYED RELEASE 1 pill by mouth daily PANTOPRAZOLE SODIUM 08551502560 Active Stephanie Mcdermott Active METFORMIN HCL 1000 MG ORAL TABLET 1 tablet by mouth daily METFORMIN HCL 13190390349 Active Stephanie Mcdermott Active CIPRO 500 MG ORAL TABLET 1 tablet two times daily CIPROFLOXACIN HCL 66038829324 No Longer Active Ana Swanson Active CIPRO 500 MG ORAL TABLET 1 tablet two times daily CIPRO 500 MG ORAL TABLET 961536 CIPROFLOXACIN HCL Inactive CIPRO 500 MG ORAL TABLET 1 tablet two times daily CIPRO 500 MG ORAL TABLET 192788 CIPROFLOXACIN HCL Inactive CIPRO 500 MG ORAL TABLET 1 tablet two times daily CIPRO 500 MG ORAL TABLET 161528 CIPROFLOXACIN HCL Inactive Advance Directives Directive Description [...] negative Encounters Code Encounter Date Provider Facility CPT-12291 Level 3 Est. 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 Patient 23:38:20 CDT Kari Laughlin MD [facility] Ant CPT-80080 Level 3 Est. Patient 22:47:15 DRILLING FIELD PROFESSIONAL Kari Laughlin MD [facility] Ant CPT-01094 Level 3 New Patient 21:44:21 CDT Kari Laughlin MD [facility] Procedures Code Procedure Name Date Entry Date Standard Description CPT-72813 Bladder Scan 13:07:24 DRILLING FIELD PROFESSIONAL CPT-91040 Bladder Scan 23:38:21 CDT CPT-47735 Urine Dip (Floor Use Only) 22:47:16 DRILLING FIELD PROFESSIONAL CPT-72911 Insert non indwelling bld cath 21:44:21 CDT CPT-54252 Bladder Scan 21:44:21 CDT
--- OUTSIDE RECORDS SUMMARY | 2017-05-01 06:47 | XMS REPORT | Clinical Summary ---
[...] 1000 UNIT CAPS 1 po qd CHOLECALCIFEROL 42177402894 Active Stephanie Devlinr Active VITAMIN C 1000 MG ORAL TABS 1 tab by mouth daily ASCORBIC ACID 75133185611 Active Stephanie Devlinr Active RA VITAMIN B-12 100 MCG ORAL TABS 1 tab by mouth daily CYANOCOBALAMIN 88008040899 Active Stephanie Devlinr Active VISION FORMULA/LUTEIN ORAL TABS 1 tab by mouth daily MULTIPLE VITAMINS-MINERALS 58612487230 Active Stephanie Devlinr Active CALCIUM MAGNESIUM 750 300-300 MG ORAL TABS 1 tab by mouth daily CALCIUM-MAGNESIUM 34826776769 Active Baldemar Active FISH OIL 1000 MG CPDR 1 pill by mouth daily for cholesterol OMEGA-3 FATTY ACIDS 00268912454 Active Baldemar Active ATORVASTATIN CALCIUM 10 MG TABS 1 pill by mouth nightly, for cholesterol 2015 ATORVASTATIN CALCIUM 98863838862 Active Baldemar Active CITALOPRAM HYDROBROMIDE 20 MG TABS 1 tablet by mouth daily CITALOPRAM HYDROBROMIDE 67644236181 Active Baldemar Active TRIMETHOPRIM 100 MG ORAL TABS 1 tab by mouth daily TRIMETHOPRIM 81979850428 Active Baldemar Active COUMADIN 2.5 MG TAB WARFARIN SODIUM 42330769743 Active Baldemar Active COREG CR 20 MG ORAL NJ96F-UUP 1 tab by mouth daily CARVEDILOL PHOSPHATE 51253397373 Active Baldemar Active PANTOPRAZOLE SODIUM 40 MG TBEC 1 pill by mouth daily PANTOPRAZOLE SODIUM 45344834359 Active Baldemar Active METFORMIN HCL 1000 MG TABS 1 tablet by mouth daily METFORMIN HCL 72008121107 Active Baldemar Active CIPRO 500 MG TAB 1 tablet two times daily CIPROFLOXACIN HCL 17595029472 No Longer Active Ana Swanson Active CIPRO 500 MG TAB 1 tablet two times daily CIPRO 500 MG TAB 600761 CIPROFLOXACIN HCL Inactive Vital Signs Date Name [...] negative Encounters Code Encounter Date Provider Facility CPT-11966 Level 3 Est. 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
--- OUTSIDE RECORDS SUMMARY | 2017-05-01 06:47 | XMS REPORT | Clinical Summary ---
Author Author Admin, E Organization [facility] Address Unknown Phone Unavailable Allergies, Adverse [...] 1 tablet two times daily CIPROFLOXACIN HCL 23061765203 No Longer Active Ana Swanson Active CIPRO 500 MG TAB 1 tablet two times daily CIPROFLOXACIN HCL 42895331905 No Longer Active Ana Swanson Active VITAMIN D3 1000 UNIT CAPS 1 po qd CHOLECALCIFEROL 41800797274 Active Baldemar Active VITAMIN C 1000 MG ORAL TABS 1 tab by mouth daily ASCORBIC ACID 59461462769 Active Baldemar Active RA VITAMIN B-12 100 MCG ORAL TABS 1 tab by mouth daily CYANOCOBALAMIN 50961408721 Active Baldemar Active VISION FORMULA/LUTEIN ORAL TABS 1 tab by mouth daily MULTIPLE VITAMINS-MINERALS 58948412904 Active Baldemar Active CALCIUM MAGNESIUM 750 300-300 MG ORAL TABS 1 tab by mouth daily CALCIUM-MAGNESIUM 97672591659 Active Baldemar Active FISH OIL 1000 MG CPDR 1 pill by mouth daily for cholesterol OMEGA-3 FATTY ACIDS 95385743576 Active Baldemar Active ATORVASTATIN CALCIUM 10 MG TABS 1 pill by mouth nightly, for cholesterol 2015 ATORVASTATIN CALCIUM 89668714216 Active Stephanie Mcdermott Active CITALOPRAM HYDROBROMIDE 20 MG TABS 1 tablet by mouth daily CITALOPRAM HYDROBROMIDE 60458888299 Active Stephanie Devlinr Active TRIMETHOPRIM 100 MG ORAL TABS 1 tab by mouth daily TRIMETHOPRIM 90679115604 Active Stephanie Devlinr Active COUMADIN 2.5 MG TAB WARFARIN SODIUM 83512928663 Active Stephanie Devlinr Active COREG CR 20 MG ORAL [id number] 1 tab by mouth daily CARVEDILOL PHOSPHATE 95191180874 Active Stephanie Mcdermott Active PANTOPRAZOLE SODIUM 40 MG TBEC 1 pill by mouth daily PANTOPRAZOLE SODIUM 41505395391 Active Stephanie Mcdermott Active METFORMIN HCL 1000 MG TABS 1 tablet by mouth daily METFORMIN HCL 44730213788 Active Stephanie Mcdermott Active CIPRO 500 MG TAB 1 tablet two times daily CIPROFLOXACIN HCL 90267915389 No Longer Active Ana Swanson Active CIPRO 500 MG TAB 1 tablet two times daily CIPRO 500 MG TAB 570744 CIPROFLOXACIN HCL Inactive CIPRO 500 MG TAB 1 tablet two times daily CIPRO 500 MG TAB 677841 CIPROFLOXACIN HCL Inactive CIPRO 500 MG TAB 1 tablet two times daily CIPRO 500 MG TAB 120339 CIPROFLOXACIN HCL Inactive Vital Signs Date Name [...] 75 mm[Hg] BP jaeger blood pressure, systolic 135 mm[Hg] BP sys height E&M 62 [in_us] Bdy height pulse rate E&M 75 /min Heart rate temperature E&M 98.4 [degF] Body temperature weight E&M 186.5 [lb_av] Weight Measured blood pressure, diastolic 70 mm[Hg] BP jaeger blood pressure, systolic 138 mm[Hg] BP sys pulse rate E&M 78 /min Heart rate temperature E&M 98.4 [...] (dipstick) 0.2 protein, urine, semiquantitative (dipstick) negative Office Visit: [...] negative Encounters Code Encounter Date Provider Facility CPT-20878 Level 3 Est. Patient 23:38:20 CDT Kari Laughlin MD [facility] Ant CPT-78117 Level 3 Est. 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
--- OUTSIDE RECORDS SUMMARY | 2017-05-01 06:48 | XMS REPORT | Clinical Summary ---
Author Author Admin, E Organization [facility] Address Unknown Phone [...] 1 tablet two times daily CIPROFLOXACIN HCL 55168383407 No Longer Active Ana Swanson Active CIPRO 500 MG TAB 1 tablet two times daily CIPROFLOXACIN HCL 49514954907 No Longer Active Ana Swanson Active VITAMIN D3 1000 UNIT CAPS 1 po qd CHOLECALCIFEROL 75021149623 Active Baldemar Active VITAMIN C 1000 MG ORAL TABS 1 tab by mouth daily ASCORBIC ACID 32804588631 Active Baldemar Active RA VITAMIN B-12 100 MCG ORAL TABS 1 tab by mouth daily CYANOCOBALAMIN 03634742253 Active Baldemar Active VISION FORMULA/LUTEIN ORAL TABS 1 tab by mouth daily MULTIPLE VITAMINS-MINERALS 92783711701 Active Baldemar Active CALCIUM MAGNESIUM 750 300-300 MG ORAL TABS 1 tab by mouth daily CALCIUM-MAGNESIUM 87557418761 Active Baldemar Active FISH OIL 1000 MG CPDR 1 pill by mouth daily for cholesterol OMEGA-3 FATTY ACIDS 88409060415 Active Baldemar Active ATORVASTATIN CALCIUM 10 MG TABS 1 pill by mouth nightly, for cholesterol 2015 ATORVASTATIN CALCIUM 47793366394 Active Stephanie Mcdermott Active CITALOPRAM HYDROBROMIDE 20 MG TABS 1 tablet by mouth daily CITALOPRAM HYDROBROMIDE 95439996126 Active Stephanie Devlinr Active TRIMETHOPRIM 100 MG ORAL TABS 1 tab by mouth daily TRIMETHOPRIM 60523302395 Active Stephanie Devlinr Active COUMADIN 2.5 MG TAB WARFARIN SODIUM 53485400753 Active Stephanie Devlinr Active COREG CR 20 MG ORAL [id number] 1 tab by mouth daily CARVEDILOL PHOSPHATE 34534781994 Active Stephanie Mcdermott Active PANTOPRAZOLE SODIUM 40 MG TBEC 1 pill by mouth daily PANTOPRAZOLE SODIUM 38829929105 Active Stephanie Mcdermott Active METFORMIN HCL 1000 MG TABS 1 tablet by mouth daily METFORMIN HCL 64756209512 Active Stephanie Mcdermott Active CIPRO 500 MG TAB 1 tablet two times daily CIPROFLOXACIN HCL 99528223949 No Longer Active Ana Swanson Active CIPRO 500 MG TAB 1 tablet two times daily CIPRO 500 MG TAB 768852 CIPROFLOXACIN HCL Inactive CIPRO 500 MG TAB 1 tablet two times daily CIPRO 500 MG TAB 625476 CIPROFLOXACIN HCL Inactive CIPRO 500 MG TAB 1 tablet two times daily CIPRO 500 MG TAB 645044 CIPROFLOXACIN HCL Inactive Vital Signs Date Name [...] negative Encounters Code Encounter Date Provider Facility CPT-25628 Level 3 Est. Patient 23:38:20 CDT Kari Laughlin MD [facility] Ant CPT-16170 Level 3 Est. 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
--- OUTSIDE RECORDS SUMMARY | 2017-05-01 06:48 | XMS REPORT | Clinical Summary ---
Author Author Admin, CARLA Organization [facility] Address Unknown Phone Unavailable Allergies, Adverse [...] 1 tablet two times daily CIPROFLOXACIN HCL 56270049145 No Longer Active Ana Swanson Active CIPRO 500 MG TAB 1 tablet two times daily CIPROFLOXACIN HCL 13707920699 No Longer Active Ana Swanson Active VITAMIN D3 1000 UNIT CAPS 1 po qd CHOLECALCIFEROL 05580433983 Active Baldemar Active VITAMIN C 1000 MG ORAL TABS 1 tab by mouth daily ASCORBIC ACID 86458255591 Active Baldemar Active RA VITAMIN B-12 100 MCG ORAL TABS 1 tab by mouth daily CYANOCOBALAMIN 85601800372 Active Baldemar Active VISION FORMULA/LUTEIN ORAL TABS 1 tab by mouth daily MULTIPLE VITAMINS-MINERALS 27998981113 Active Baldemar Active CALCIUM MAGNESIUM 750 300-300 MG ORAL TABS 1 tab by mouth daily CALCIUM-MAGNESIUM 54808511350 Active Baldemar Active FISH OIL 1000 MG CPDR 1 pill by mouth daily for cholesterol OMEGA-3 FATTY ACIDS 18556288674 Active Baldemar Active ATORVASTATIN CALCIUM 10 MG TABS 1 pill by mouth nightly, for cholesterol 2015 ATORVASTATIN CALCIUM 80494052183 Active Stephanie Mcdermott Active CITALOPRAM HYDROBROMIDE 20 MG TABS 1 tablet by mouth daily CITALOPRAM HYDROBROMIDE 91970523108 Active Stephanie Devlinr Active TRIMETHOPRIM 100 MG ORAL TABS 1 tab by mouth daily TRIMETHOPRIM 54476655803 Active Stephanie Devlinr Active COUMADIN 2.5 MG TAB WARFARIN SODIUM 68701717178 Active Stephanie Devlinr Active COREG CR 20 MG ORAL [id number] 1 tab by mouth daily CARVEDILOL PHOSPHATE 29367651511 Active Stephanie Mcdermott Active PANTOPRAZOLE SODIUM 40 MG TBEC 1 pill by mouth daily PANTOPRAZOLE SODIUM 88255520507 Active Stephanie Mcdermott Active METFORMIN HCL 1000 MG TABS 1 tablet by mouth daily METFORMIN HCL 50074533174 Active Stephanie Mcdermott Active CIPRO 500 MG TAB 1 tablet two times daily CIPROFLOXACIN HCL 14815654547 No Longer Active Ana Swanson Active CIPRO 500 MG TAB 1 tablet two times daily CIPRO 500 MG TAB 786106 CIPROFLOXACIN HCL Inactive CIPRO 500 MG TAB 1 tablet two times daily CIPRO 500 MG TAB 723488 CIPROFLOXACIN HCL Inactive CIPRO 500 MG TAB 1 tablet two times daily CIPRO 500 MG TAB 518692 CIPROFLOXACIN HCL Inactive Vital Signs Date Name [...] negative Encounters Code Encounter Date Provider Facility CPT-04913 Level 3 Est. Patient 23:38:20 CDT Kari Laughlin MD [facility] Ant CPT-79533 Level 3 Est. 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
--- OUTSIDE RECORDS SUMMARY | 2017-05-01 06:49 | XMS REPORT | Continuity of Care Document ---
Author Author [facility] Organization [facility] Address Unknown Phone Unavailable Allergies Active Description Code Type Severity Reaction Onset Reported/Identified Relationship to Patient Clinical Status Yes PENICILLIN PENICILLIN Unknown HIVES 11/04/2013 Yes Penicillins [id number] Drug Allergy Moderate HIVES 12/21/2014 Yes hydrocodone [id number] Drug Allergy Unknown VOMITING 12/21/2014 Medications There is no data. Problems Date Dx Coded Attending Type Code [...] AMANDEEP Patel Ot V13.02 12/29/2014 KEENAN GUTIERREZ CLINICAL TRAINING COORDINATOR Ot V76.12 12/29/2014 STEFF DOMINGUEZ, AMANDEEP Patel Ot 577.9 12/29/2014 AMANDEEP ARTIS MD Ot V81.5 12/29/2014 GLENNY DOMINGUEZ, INESSA Ray Ot K21.9 12/29/2014 GLENNY DOMINGUEZ, INESSA M Ot Z01.818 01/13/2015 GLENNY DOMINGUEZ, INESSA M Ot K31.84 03/07/2015 STEFF DOMINGUEZ, AMANDEEP A Ot 577.9 03/07/2015 STEFF DOMINGUEZ, AMANDEEP A Ot 599.70 03/07/2015 STEFF DOMINGUEZ, AMANDEEP A Ot V13.02 03/07/2015 QUICK, KEENAN Chicas CLINICAL TRAINING COORDINATOR Ot V76.12 03/07/2015 STEFF DOMINGUEZ, AMANDEEP A Ot 577.9 03/07/2015 STEFF DOMINGUEZ, AMANDEEP A Ot V81.5 03/07/2015 GLENNY DOMINGUEZ, INESSA M Ot K21.9 03/07/2015 GLENNY DOMINGUEZ, INESSA M Ot Z01.818 03/07/2015 GLENNY DOMINGUEZ, INESSA M Ot K31.84 03/07/2015 STEFF DOMINGUEZ, AMANDEEP A Ot 577.9 03/07/2015 STEFF DOMINGUEZ, AMANDEEP A Ot 599.70 03/07/2015 STEFF DOMINGUEZ, AMANDEEP A Ot V13.02 03/07/2015 QUICK, KEENAN Chicas CLINICAL TRAINING COORDINATOR Ot V76.12 03/07/2015 STEFF DOMINGUEZ, AMANDEEP A Ot 577.9 03/07/2015 STEFF DOMINGUEZ, AMANDEEP A Ot V81.5 03/07/2015 GLENNY DOMINGUEZ, INESSA M Ot K21.9 03/07/2015 GLENNY DOMINGUEZ, INESSA M Ot Z01.818 03/07/2015 GLENNY DOMINGUEZ, INESSA M Ot K31.84 03/07/2015 STEFF DOMINGUEZ, AMANDEEP A Ot 577.9 03/07/2015 STEFF DOMINGUEZ, AMANDEEP A Ot 599.70 03/07/2015 STEFF DOMINGUEZ, AMANDEEP A Ot V13.02 03/07/2015 QUICK, KEENAN Chicas CLINICAL TRAINING COORDINATOR Ot V76.12 03/07/2015 STEFF DOMINGUEZ, AMANDEEP A Ot 577.9 03/07/2015 STEFF DOMINGUEZ, AMANDEEP A Ot V81.5 03/07/2015 GLENNY DOMINGUEZ, INESSA M Ot K21.9 03/07/2015 GLENNY DOMINGUEZ, INESSA M Ot Z01.818 03/07/2015 GLENNY DOMINGUEZ, INESSA M Ot K31.84 03/08/2015 MELANYNDER DO, SHAKEEL S Ot E11.9 TYPE 2 DIABETES MELLITUS WITHOUT COMPLIC 03/08/2015 MELANYNDER DO, SHAKEEL S Ot I95.0 IDIOPATHIC HYPOTENSION 03/08/2015 ORENDER DO, SHAKEEL S Ot N28.9 DISORDER OF KIDNEY AND URETER, UNSPECIFI 03/08/2015 ORENDER DO, SHAKEEL S Ot R11.0 NAUSEA 03/08/2015 ORENDER DO, SHAKEEL S Ot R20.2 PARESTHESIA OF SKIN 03/08/2015 MELANYNDER DO, SHAKEEL S Ot R42 DIZZINESS AND GIDDINESS 03/08/2015 ORENDER DO, SHAKEEL S Ot Z79.4 FCI (CURRENT) USE OF INSULIN 03/08/2015 MELANYNDER DO, SHAKEEL S Ot Z86.73 PRSNL HX OF TIA (TIA), AND CEREB INFRC W 03/13/2015 STEFF DOMINGUEZ, AMANDEEP Patel Ot 577.9 03/13/2015 STEFF DOMINGUEZ, AMANDEEP A Ot 599.70 03/13/2015 STEFF DOMINGUEZ, AMANDEEP A Ot V13.02 03/13/2015 KEENAN GUTIERREZ Ot V76.12 03/13/2015 STEFF DOMINGUEZ, AMANDEEP A Ot 577.9 03/13/2015 STEFF DOMINGUEZ, AMANDEEP A Ot V81.5 03/13/2015 GLENNY DOMINGUEZ, INESSA Ray Ot K21.9 03/13/2015 GLENNY DOMINGUEZ, INESSA Ray Ot Z01.818 03/13/2015 GLENNY DOMINGUEZ, INESSA M Ot K31.84 04/15/2015 STEFF DOMINGUEZ, AMANDEEP A Ot 577.9 04/15/2015 STEFF DOMINGUEZ, AMANDEEP A Ot 599.70 04/15/2015 STEFF DOMINGUEZ, AMANDEEP A Ot V13.02 04/15/2015 KEENAN GUTIERREZ Ot V76.12 04/15/2015 STEFF DOMINGUEZ, AMANDEEP A Ot 577.9 04/15/2015 STEFF DOMINGUEZ, AMANDEEP A Ot V81.5 04/15/2015 GLENNY DOMINGUEZ, INESSA Ray Ot K21.9 04/15/2015 GLENNY DOMINGUEZ, INESSA Ray Ot Z01.818 04/15/2015 GLENNY DOMINGUEZ, INESSA Ray Ot K31.84 05/06/2015 SHAKEEL BRUCE DO Ot M81.0 05/13/2015 KEENAN GUTIERREZ CLINICAL TRAINING COORDINATOR Ot Z12.31 05/21/2016 LEAH MONTERO DO Ot E11.649 TYPE 2 DIABETES MELLITUS WITH HYPOGLYCEM 05/21/2016 LEAH MONTERO DO Ot I10 ESSENTIAL (PRIMARY) HYPERTENSION 05/21/2016 WINSTON LEAH BENNETT Ot M47.812 SPONDYLOSIS W/O MYELOPATHY OR RADICULOPA 05/21/2016 VERNALIS LEAH BENNETT Ot M47.814 SPONDYLOSIS W/O MYELOPATHY OR RADICULOPA 05/21/2016 WINSTON LEAH BENNETT Ot S42.255A NONDISP FX OF GREATER TUBEROSITY OF LEFT 05/21/2016 [place] LEAH Ramirez Ot S49.92XA UNSP INJURY OF LEFT SHOULDER AND UPPER A 05/21/2016 LEAH MONTERO DO Ot W17.89XA OTHER FALL FROM ONE LEVEL TO ANOTHER, IN 05/21/2016 LEAH MONTERO DO Ot Y92.[address] IN SINGLE-FAMILY (PRIVATE) NAVNEET 05/21/2016 LEAH MONTERO DO Ot Y99.8 OTHER EXTERNAL CAUSE STATUS 05/21/2016 WINSTON LEAH Ramirez Ot Z96.41 PRESENCE OF INSULIN PUMP (EXTERNAL) (INT 05/21/2016 AMANDEEP ARTIS MD Ot 577.9 PANCREATIC DISEASE NOS 05/21/2016 STEFF DOMINGUEZ, AMANDEEP Patel Ot 599.70 HEMATURIA, UNSPECIFIED 05/21/2016 AMANDEEP ARTIS MD Ot V13.02 PERSONAL HISTORY, URINARY (TRACT) INFECT 05/21/2016 KEENAN GUTIERREZ Ot V76.12 OTH SCREEN MAMMO-MALIGN NEOPLASM OF PAM 05/21/2016 AMANDEEP ARTIS MD Ot 577.9 PANCREATIC DISEASE NOS 05/21/2016 AMANDEEP ARTIS MD Ot V81.5 SCREEN FOR NEPHROPATHY 05/21/2016 GLENNY DOMINGUEZ, INESSA Ray Ot K21.9 GASTRO-ESOPHAGEAL REFLUX DISEASE WITHOUT 05/21/2016 GLENNY DOMINGUEZ, INESSA Ray Ot Z01.818 ENCOUNTER FOR OTHER PREPROCEDURAL EXAMIN 05/21/2016 GLENNY DOMINGUEZ, INESSA M Ot K31.84 GASTROPARESIS 05/21/2016 ORENDER , SHAKEEL Palencia Ot M81.0 AGE-RELATED OSTEOPOROSIS W/O CURRENT PAT 05/21/2016 KEENAN GUTIERREZ Ot Z12.31 ENCNTR SCREEN MAMMOGRAM FOR MALIGNANT NE 09/25/2016 JONATHAN DO, ADRIANA Delgado Ot M75.92 SHOULDER LESION, UNSPECIFIED, LEFT SHOUL 09/25/2016 JONATHAN DO, ADRIANA Delgado Ot R60.0 LOCALIZED EDEMA 09/25/2016 JONATHAN DO, ADRIANA Delgado Ot S42.252G DISP FX OF GREATER TUBEROSITY OF L HUMER 09/25/2016 JONATHAN DO, ADRIANA Delgado Ot X58.XXXA EXPOSURE TO OTHER SPECIFIED FACTORS, INI 09/25/2016 JONATHAN DO, ADRIANA Delgado Ot Y99.8 OTHER EXTERNAL CAUSE STATUS 09/26/2016 JONATHAN DO, ADRIANA Delgado Ot M75.92 SHOULDER LESION, UNSPECIFIED, LEFT SHOUL 09/26/2016 JONATHAN DO, ADRIANA F Ot R60.0 LOCALIZED EDEMA 09/26/2016 JONATHAN DO, ADRIANA Danny Ot S42.252G DISP FX OF GREATER TUBEROSITY OF L HUMER 09/26/2016 JONATHAN DO, ADRIANA F Ot X58.XXXA EXPOSURE TO OTHER SPECIFIED FACTORS, INI 09/26/2016 JONATHAN DO, ADRIANA F Ot Y99.8 OTHER EXTERNAL CAUSE STATUS 09/26/2016 JONATHAN DO, ADRIANA Danny Ot M75.92 SHOULDER LESION, UNSPECIFIED, LEFT SHOUL 09/26/2016 JONATHAN DO, ADRIANA Danny Ot R60.0 LOCALIZED EDEMA 09/26/2016 JONATHAN DO, ADRIANA Danny Ot S42.252G DISP FX OF GREATER TUBEROSITY OF L HUMER 09/26/2016 JONATHAN DO, ADRIANA F Ot X58.XXXA EXPOSURE TO OTHER SPECIFIED FACTORS, INI 09/26/2016 JONATHAN DO, ADRIANA F Ot Y99.8 OTHER EXTERNAL CAUSE STATUS 09/26/2016 JONATHAN DO, ADRIANA Delgado Ot M75.92 SHOULDER LESION, UNSPECIFIED, LEFT SHOUL 09/26/2016 JONATHAN DO, ADRIANA F Ot R60.0 LOCALIZED EDEMA 09/26/2016 JONATHAN DO, ADRIANA F Ot S42.252G DISP FX OF GREATER TUBEROSITY OF L HUMER 09/26/2016 JONATHAN DO, ADRIANA F Ot X58.XXXA EXPOSURE TO OTHER SPECIFIED FACTORS, INI 09/26/2016 JONATHAN DO, ADRIANA F Ot Y99.8 OTHER EXTERNAL CAUSE STATUS 10/20/2016 JONATHAN DO, ADRIANA F Ot M75.92 SHOULDER LESION, UNSPECIFIED, LEFT SHOUL 10/20/2016 JONATHAN DO, ADRIANA F Ot R60.0 LOCALIZED EDEMA 10/20/2016 JONATHAN DO, ADRIANA F Ot S42.252G DISP FX OF GREATER TUBEROSITY OF L HUMER 10/20/2016 JONATHAN DO, ADRIANA F Ot X58.XXXA EXPOSURE TO OTHER SPECIFIED FACTORS, INI 10/20/2016 JONATHAN DO, ADRIANA F Ot Y99.8 OTHER EXTERNAL CAUSE STATUS 11/06/2016 JONATHAN DO, ADRIANA F Ot M75.92 SHOULDER LESION, UNSPECIFIED, LEFT SHOUL 11/06/2016 JONATHAN DO, ADRIANA F Ot R60.0 LOCALIZED EDEMA 11/06/2016 JONATHAN DO, ADRIANA F Ot S42.252G DISP FX OF GREATER TUBEROSITY OF L HUMER 11/06/2016 JONATHAN DO, ADRIANA F Ot X58.XXXA EXPOSURE TO OTHER SPECIFIED FACTORS, INI 11/06/2016 JONATHAN DO, ADRIANA F Ot Y99.8 OTHER EXTERNAL CAUSE STATUS 11/06/2016 JONATHAN DO, ADRIANA F Ot M75.92 SHOULDER LESION, UNSPECIFIED, LEFT SHOUL 11/06/2016 JONATHAN DO, ADRIANA F Ot R60.0 LOCALIZED EDEMA 11/06/2016 JONATHAN DO, ADRIANA F Ot S42.252G DISP FX OF GREATER TUBEROSITY OF L HUMER 11/06/2016 JONATHAN DO, ADRIANA F Ot X58.XXXA EXPOSURE TO OTHER SPECIFIED FACTORS, INI 11/06/2016 JONATHAN DO, ADRIANA F Ot Y99.8 OTHER EXTERNAL CAUSE STATUS 12/25/2016 JONATHAN DO, ADRIANA F Ot M75.92 SHOULDER LESION, UNSPECIFIED, LEFT SHOUL 12/25/2016 JONATHAN DO, ADRIANA F Ot R60.0 LOCALIZED EDEMA 12/25/2016 JONATHAN DO, ADRIANA F Ot S42.252G DISP FX OF GREATER TUBEROSITY OF L HUMER 12/25/2016 JONATHAN DO, ADRIANA F Ot X58.XXXA EXPOSURE TO OTHER SPECIFIED FACTORS, INI 12/25/2016 JONATHAN DO, ADRIANA F Ot Y99.8 OTHER EXTERNAL CAUSE STATUS 12/25/2016 STEFF DOMINGUEZ, AMANDEEP Patel Ot 577.9 PANCREATIC DISEASE NOS 12/25/2016 STEFF DOMINGUEZ, AMANDEEP Patel Ot 599.70 HEMATURIA, UNSPECIFIED 12/25/2016 AMANDEEP ARTIS MD Ot V13.02 PERSONAL HISTORY, URINARY (TRACT) INFECT 12/25/2016 EKENAN GUTIERREZ Ot V76.12 OTH SCREEN MAMMO-MALIGN NEOPLASM OF PAM 12/25/2016 AMANDEEP ARTIS MD Ot 577.9 PANCREATIC DISEASE NOS 12/25/2016 AMANDEEP ARTIS MD Ot V81.5 SCREEN FOR NEPHROPATHY 12/25/2016 GLENNY DOMINGUEZ, INESSA Ray Ot K21.9 GASTRO-ESOPHAGEAL REFLUX DISEASE WITHOUT 12/25/2016 GLENNY DOMINGUEZ, INESSA Ray Ot Z01.818 ENCOUNTER FOR OTHER PREPROCEDURAL EXAMIN 12/25/2016 GLENNY DOMINGUEZ, INESSA Ray Ot K31.84 GASTROPARESIS 12/25/2016 SHAKEEL BRUCE DO S Ot M81.0 AGE-RELATED OSTEOPOROSIS W/O CURRENT PAT 12/25/2016 KEENAN GUTIERREZ Ot Z12.31 ENCNTR SCREEN MAMMOGRAM FOR MALIGNANT NE 12/25/2016 ADRIANA CASTILLO DO Ot M75.92 SHOULDER LESION, UNSPECIFIED, LEFT SHOUL 12/25/2016 ADRIANA CASTILLO DO Ot R60.0 LOCALIZED EDEMA 12/25/2016 ADRIANA CASTILLO DO Ot S42.252G DISP FX OF GREATER TUBEROSITY OF L HUMER 12/25/2016 ADRIANA CASTILLO DO Ot X58.XXXA EXPOSURE TO OTHER SPECIFIED FACTORS, INI 12/25/2016 ADRIANA CASTILLO DO Ot Y99.8 OTHER EXTERNAL CAUSE STATUS Procedures There is no data. Results Test Result Range Capillary blood glucose measurement by glucometer (mass/volume) - 05/21/16 14: 37 Capillary blood glucose measurement by glucometer (mass/volume) 59 mg/dL 70-110 Complete blood count (CBC) with automated white blood cell (WBC) differential - 05/21/16 14:40 Blood leukocytes automated count (number/volume) 11.8 10*3/uL 4.3-11.0 Blood erythrocytes automated count (number/volume) 4.42 10*6/uL 4.35-5.85 Venous blood hemoglobin measurement (mass/volume) 12.0 [...] Automated blood platelet mean volume measurement 10.2 [foz_us] 7.4-10.4 Automated blood neutrophils/100 leukocytes 79 % [...] Serum or plasma sodium measurement (moles/volume) 141 mmol/L 135-145 Serum or plasma potassium measurement (moles/volume) 3.5 mmol/L 3.6-5.0 Serum or plasma chloride measurement (moles/volume) 106 mmol/L 98-107 Carbon dioxide 21 mmol/L 21-32 Serum or plasma anion gap determination (moles/volume) 14 mmol/L 5-14 Serum or plasma urea nitrogen measurement (mass/volume) 14 mg/dL 7-18 Serum or plasma creatinine measurement (mass/volume) 1.76 mg/dL 0.60-1.30 Serum or plasma urea nitrogen/creatinine mass [...] or plasma troponin i.cardiac measurement (mass/volume) < ng/ mL <0.30 Capillary blood glucose measurement by glucometer (mass/volume) - 05/21/16 15: 51 Capillary blood glucose measurement by glucometer (mass/volume) 87 mg/dL 70-110 Encounters ACCT No. Visit Date/Time Discharge Status Pt. Type Provider Facility Loc./Unit Complaint [id number] 11/03/2013 15:38:40 11/03/2013 23:59:59 [facility] Outpatient Jose Mckeon [id number] 09/22/2016 12:57:00 09/22/2016 23:59:59 [facility] Outpatient ADRIANA CASTILLO DO [facility] RAD NONDISPLACED AVULSION FX [id number] 05/21/2016 14:06:00 05/21/2016 16:10:00 DIS Emergency LEAH MONTERO DO [facility] ER BACK PAIN,L SHOULDER PAIN [id number] 04/20/2015 13:22:00 04/20/2015 23:59:59 CLS Outpatient KEENAN GUTIERREZ CLINICAL TRAINING COORDINATOR [facility] RAD SCREENING [id number] 04/15/2015 11:26:00 04/15/2015 23:59:59 CLS Outpatient SHAKEEL BRUCE DO S [facility] RAD OSTEOPENIA [id number] 03/07/2015 16:28:00 03/08/2015 14:15:00 DIS Inpatient SHAKEEL BRUCE DO S [facility] ICU POSSIBLE CVA, HYPOTENSION,HYPERGLYCEMIA, [id number] 12/29/2014 07:13:00 12/29/2014 23:59:59 CLS Outpatient INESSA MURRIETA MD [facility] CARD GASTOPARAESIS [id number] 12/21/2014 09:35:00 12/21/2014 13:00:00 DIS Outpatient INESSA MURRIETA MD [facility] SDC REFLUX [id number] 12/16/2014 05:38:00 12/16/2014 23:59:59 CLS Outpatient INESSA MURRIETA MD [facility] PREOP REFLUX [id number] 11/04/2013 10:39:00 11/04/2013 23:59:59 CLS Outpatient AMANDEEP ARTSI MD [facility] RAD PANCREATIC HEAD MASS [id number] 09/17/2013 14:59:00 09/17/2013 23:59:59 CLS Outpatient KEENAN GUTIERREZ CLINICAL TRAINING COORDINATOR [facility] RAD SCREENING [id number] 07/28/2013 08:10:00 07/28/2013 23:59:59 CLS Outpatient AMANDEEP ARTIS MD [facility] RAD RECURRING UTI HEMATURIA [id number] 03/12/2013 18:59:00 03/13/2013 00:55:00 DIS Emergency CYNDEE LATHAM MD [facility] ER HIGH BLOOD SUGAR [id number] 05/01/2017 06:39:00 ACT Emergency CYNDEE LATHAM MD [facility] ER FALL [id number] 04/13/2017 20:06:28 ACT Unknown
--- OUTSIDE RECORDS SUMMARY | 2017-05-01 06:49 | XMS REPORT | Clinical Summary ---
Author Author Admin, E Organization [facility] Address Unknown Phone Unavailable Allergies, Adverse Reactions, [...] 1 tablet two times daily CIPROFLOXACIN HCL 66935385219 Active Ana Swanson Active VITAMIN D3 1000 UNIT CAPS 1 po qd CHOLECALCIFEROL 60825499295 Active Baldemar Active VITAMIN C 1000 MG ORAL TABS 1 tab by mouth daily ASCORBIC ACID 89524407120 Active Baldemar Active RA VITAMIN B-12 100 MCG ORAL TABS 1 tab by mouth daily CYANOCOBALAMIN 10896725877 Active Baldemar Active VISION FORMULA/LUTEIN ORAL TABS 1 tab by mouth daily MULTIPLE VITAMINS-MINERALS 32462646090 Active Baldemar Active CALCIUM MAGNESIUM 750 300-300 MG ORAL TABS 1 tab by mouth daily CALCIUM-MAGNESIUM 72975725142 Active Baldemar Active FISH OIL 1000 MG CPDR 1 pill by mouth daily for cholesterol OMEGA-3 FATTY ACIDS 79445550802 Active Baldemar Active ATORVASTATIN CALCIUM 10 MG TABS 1 pill by mouth nightly, for cholesterol 2015 ATORVASTATIN CALCIUM 75186918731 Active Baldemar Active CITALOPRAM HYDROBROMIDE 20 MG TABS 1 tablet by mouth daily CITALOPRAM HYDROBROMIDE 14777022315 Active Stephanie Devlinr Active TRIMETHOPRIM 100 MG ORAL TABS 1 tab by mouth daily TRIMETHOPRIM 69159752166 Active Baldemar Active COUMADIN 2.5 MG TAB WARFARIN SODIUM 09453181803 Active Stephanie Devlinr Active COREG CR 20 MG ORAL WE68A-DTK 1 tab by mouth daily CARVEDILOL PHOSPHATE 53425581336 Active Baldemar Active PANTOPRAZOLE SODIUM 40 MG TBEC 1 pill by mouth daily PANTOPRAZOLE SODIUM 82494640580 Active Baldemar Active METFORMIN HCL 1000 MG TABS 1 tablet by mouth daily METFORMIN HCL 86872358788 Active Baldemar Active CIPRO 500 MG TAB 1 tablet two times daily CIPROFLOXACIN HCL 67847015444 No Longer Active Ana Swanson Active CIPRO 500 MG TAB 1 tablet two times daily CIPRO 500 MG TAB 547457 CIPROFLOXACIN HCL Inactive Vital Signs Date Name [...] negative Encounters Code Encounter Date Provider Facility CPT-45600 Level 3 Est. Patient 22:47:15 FUND DEVELOPMENT MANAGER Kari Laughlin MD [facility] Ant CPT-77414 Level 3 New Patient 21:44:21 CDT Kari Laughlin MD [facility] Procedures Code Procedure Name Date Entry Date Standard Description CPT-52473 Urine Dip (Floor Use Only) 22:47:16 FUND DEVELOPMENT MANAGER CPT-12483 Insert non indwelling bld cath 21:44:21 CDT CPT-87669 Bladder Scan 21:44:21 CDT
[2017-05-01 06:53] LABS: BASOPHILS % (AUTO) 0 % (0-10); EOSINOPHILS # (AUTO) 0.1 10^3/uL (0.0-0.3); EOSINOPHILS % (AUTO) 1 % (0-10); HEMATOCRIT 38 % (35-52); HEMOGLOBIN 12.2 G/DL (11.5-16.0); LYMPHOCYTES # (AUTO) 1.5 X 10^3 (1.0-4.0); LYMPHOCYTES % (AUTO) 19 % (12-44); MEAN CORPUSCULAR HEMOGLOBIN 29 PG (25-34); MEAN CORPUSCULAR HGB CONC 32 G/DL (32-36); MEAN CORPUSCULAR VOLUME 89 FL (80-99); MEAN PLATELET VOLUME 10.2 FL (7.4-10.4); MONOCYTES # (AUTO) 0.4 X 10^3 (0.0-1.0); MONOCYTES % (AUTO) 5 % (0-12); NEUTROPHILS # (AUTO) 5.9 X 10^3 (1.8-7.8); NEUTROPHILS % (AUTO) 74 % (42-75); PLATELET COUNT 311 10^3/uL (130-400); RED BLOOD COUNT 4.26 10^6/uL (4.35-5.85); RED CELL DISTRIBUTION WIDTH 13.9 % (10.0-14.5); WHITE BLOOD COUNT 7.9 10^3/uL (4.3-11.0)
[2017-05-01 07:07] LABS: ALBUMIN 3.9 GM/DL (3.2-4.5); BILIRUBIN,TOTAL 0.4 MG/DL (0.1-1.0); CALCIUM 8.9 MG/DL (8.5-10.1); CREATININE SERUM 1.56 MG/DL (0.60-1.30); POTASSIUM 4.7 MMOL/L (3.6-5.0); TOTAL PROTEIN 6.8 GM/DL (6.4-8.2)
[2017-05-01] MEDS ORDERED: morphine INJ 10 MG/ML 1ML (SYR OR VIAL) IVP ONE (07:15)
--- NOTE | 2017-05-01 07:26 | Diagnostic Imaging Report ---
INDICATION: Chest pain. FINDINGS: The heart size, mediastinal configuration, and pulmonary vascularity are within normal limits. There is no pleural effusion, pneumothorax, or pneumonia. The osseous structures are unremarkable. IMPRESSION: No acute cardiopulmonary abnormality. Dictated by: Dictated on workstation # [id number]
--- NOTE | 2017-05-01 07:35 | Diagnostic Imaging Report ---
INDICATION: Fall. FINDINGS: There is a comminuted intertrochanteric fracture of the left femur. Femoral head remains within the acetabulum. The proximal right femur is intact. Bony pelvis is intact. Soft tissues are unremarkable. IMPRESSION: Comminuted intertrochanteric fracture of the left femur. Dictated by: Dictated on workstation # [id number]
[2017-05-01] MEDS ORDERED: NS IV 1000 ML 1,000 ML IV SCH (07:47)
[2017-05-01 08:14] LABS: INR 2.3 (0.8-1.4); PROTHROMBIN TIME PATIENT 25.5 SEC (12.2-14.7)
[2017-05-01 08:32] LABS: BILIRUBIN,URINE NEGATIVE (NEGATIVE); CLARITY,URINE CLEAR; COLOR,URINE YELLOW; GLUCOSE, URINE (UA) 3+ (NEGATIVE); KETONES,URINE NEGATIVE (NEGATIVE); LEUKOCYTE ESTERASE ,URINE 1+ (NEGATIVE); NITRITE,URINE NEGATIVE (NEGATIVE); PH,URINE 5 (5-9); PROTEIN,URINE 1+ (NEGATIVE); UROBILINOGEN,URINE NORMAL (NORMAL)
--- NOTE | 2017-05-01 08:38 | ED Fall/Injury ---
General Chief Complaint: Lower Extremity Stated Complaint: FALL Nursing Triage Note: PT TO ED 5 PER [facility] FOR C/O LT HIP PAIN ONSET 0515 THIS AM. PT REPORTS SHE GOT UP TO USE THE BATHROOM, LOST HER BALANCE ET FELL. C/O PELVIC ET LT HIP PAIN. SHORTENING ET EXTERNAL ROTATION NOTED TO LT HIP Source: patient Exam Limitations: no limitations History of Present Illness Date Seen by Provider: May 01, 2017 Time Seen by Provider: 06:40 Initial Comments Patient presents via EMS. She had a fall at home this morning getting up to go to the restroom. She denies any prodrome such as lightheadedness or dizziness. However, she does feel dehydrated. She denies any other injury besides her left hip. She denies hitting her head, losing consciousness, or neck pain. She has shortening of the left lower extremity and external rotation. She is on warfarin for remote history of DVT in the left lower extremity. Her last dose was last night. Allergies and Home Medications Allergies Coded Allergies: Penicillins (Verified Allergy, Intermediate, HIVES, 12/21/14) hydrocodone (Verified Adverse Reaction, Unknown, VOMITING, 11/04/13) Home Medications Acetaminophen 500 Mg Tablet, 500-1,000 MG PO Q6H PRN for PAIN-MILD, (Reported) Alendronate Sodium 70 Mg Tablet, 70 MG PO Sa, (Reported) Atorvastatin Calcium 10 Mg Tablet, 10 MG PO HS, (Reported) Calcium Carbonate/Vitamin D3 1 Each Tablet, 1 TAB PO BID, (Reported) Carvedilol 25 Mg Tablet, 25 MG PO BID, (Reported) Citalopram Hydrobromide 20 Mg Tablet, 20 MG PO HS, (Reported) Cyanocobalamin (Vitamin B-12) 1,000 Mcg Tablet, 1,000 MCG PO DAILY, (Reported) Insulin Glargine,Hum.rec.anlog 100 Unit/1 Ml Vial, 26 UNITS SC HS, (Reported) Insulin Lispro 100 Unit/1 Ml Vial, SQ QID, (Reported) SLIDING SCALE AND CORRECTION FACTOR 1 UNIT FOR EVERY 5GM OF CARBS Metformin HCl 1,000 Mg Tablet, 1,000 MG PO BID WITH MEALS, (Reported) Gantt-3/Dha/Epa/Fish Oil 1 Each Capsule, 1,000 MG PO BID, (Reported) Pantoprazole Sodium 40 Mg Tablet.dr, 40 MG PO DAILY, (Reported) Tramadol HCl 50 Mg Tablet, 50 MG PO TID PRN for PAIN-MODERATE, (Reported) Vit C/Vit E/Lutein/Min/Gantt-3 1 Each Capsule, 1 CAP PO DAILY, (Reported) Warfarin Sodium 4 Mg Tablet, 4 MG PO HS, (Reported) Patient Home Medication List Home Medication List Reviewed: Yes Constitutional: no symptoms reported Eyes: No Symptoms Reported Ears, Nose, Mouth, Throat: no symptoms reported Respiratory: no symptoms reported Cardiovascular: no symptoms reported Gastrointestinal: no symptoms reported Genitourinary: no symptoms reported : No Musculoskeletal: see HPI Skin: no symptoms reported Psychiatric/Neurological: No Symptoms Reported Past Potiinf-Cwmtsz-Ppbqea Hx Patient Social History Alcohol Use: Denies Use Recreational Drug Use: No Smoking Status: Never a Smoker 2nd Hand Smoke Exposure: No Recent Foreign Travel: No Contact w/Someone Who Travel: No Recent Infectious Disease Expo: No Recent Hopitalizations: No Physical Abuse: No Sexual Abuse: No Mistreated: No Fear: No Immunizations Up To Date Date of Pneumonia Vaccine: Mar 17, 2009 Date of Influenza Vaccine: Nov 26, 2014 Surgeries History of Surgeries: Yes Surgeries: Bladder Surgery, Section, Gallbladder, Hysterectomy Respiratory History of Respiratory Disorde: No Cardiovascular History of Cardiac Disorders: Yes Cardiac Disorders: Deep Vein Thrombosis, Hypertension Neurological History of Neurological Disord: Yes (1997 ) Neurological Disorders: Stroke Reproductive System : No Hx Reproductive Disorders: No Sexually Transmitted Disease: No Genitourinary History of Genitourinary Disor: Yes Genitourinary Disorders: UTI-Chronic Gastrointestinal History of Gastrointestinal Di: No Musculoskeletal History of Musculoskeletal Dis: Yes (OSTEOPENIA) Endocrine History of Endocrine Disorders: Yes Endocrine Disorders: Diabetes, Insulin dep HEENT History of HEENT Disorders: No Cancer History of Cancer: Yes (1975-) Cancer: Cervical Psychosocial History of Psychiatric Problem: No Suicide Risk Score: 0 Integumentary History of Skin or Integumenta: No Blood Transfusions History of Blood Disorders: 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) Family Medical History Significant Family History: No Pertinent Family Hx Family Medial History: Asthma 19 FATHER Diabetes mellitus 19 FATHER 19 MOTHER Hypertension 19 FATHER 19 MOTHER Physical Exam Vital Signs Vital Signs - First Documented 05/01/17 06:37 Temp 95.6 Pulse 81 Resp 16 B/P (MAP) 184/89 (120) Pulse Ox 96 O2 Delivery Room Air Capillary Refill : Less Than 3 Seconds General Appearance: WD/WN, mild distress HEENT: PERRL/EOMI, normal ENT inspection, other (Oropharynx somewhat dry) Neck: normal inspection Cardiovascular: regular rate, rhythm, no edema, no murmur Respiratory: lungs clear, normal breath sounds, no respiratory distress, no accessory muscle use Gastrointestinal: non tender, soft Extremities: other (Left leg externally rotated and shortened. Left hip tender to palpation. 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 II-XII nml as tested, no motor/sensory deficits, alert, normal mood/affect, oriented x 3 Skin: normal color, warm/dry Chelsea Coma Score Best Eye Response: (4) Open Spontaneously Best Verbal Response: (5) Oriented Best Motor Response: (6) Obeys Commands Long Barn Total: 15 Progress/Results/Core Measures Results/Orders Lab Results Laboratory Tests Test 05/01/17 06:43 05/01/17 07:52 05/01/17 08:20 Range/Units White Blood Count 7.9 4.3-11.0 10^3/uL Red Blood Count 4.26 L 4.35-5.85 10^6/uL Hemoglobin 12.2 11.5-16.0 G/DL Hematocrit 38 35-52 % Mean Corpuscular Volume 89 80-99 FL Mean Corpuscular Hemoglobin 29 25-34 PG Mean Corpuscular Hemoglobin Concent 32 32-36 G/DL Red Cell Distribution Width 13.9 10.0-14.5 % Platelet Count 311 130-400 10^3/uL Mean Platelet Volume 10.2 7.4-10.4 FL Neutrophils (%) (Auto) 74 42-75 % Lymphocytes (%) (Auto) 19 12-44 % Monocytes (%) (Auto) 5 0-12 % Eosinophils (%) (Auto) 1 0-10 % Basophils (%) (Auto) 0 0-10 % Neutrophils # (Auto) 5.9 1.8-7.8 X 10^3 Lymphocytes # (Auto) 1.5 1.0-4.0 X 10^3 Monocytes # (Auto) 0.4 0.0-1.0 X 10^3 Eosinophils # (Auto) 0.1 0.0-0.3 10^3/uL Basophils # (Auto) 0.0 0.0-0.1 10^3/uL Sodium Level 138 135-145 MMOL/L Potassium Level 4.7 3.6-5.0 MMOL/L Chloride Level 106 98-107 MMOL/L Carbon Dioxide Level 18 L 21-32 MMOL/L Anion Gap 14 5-14 MMOL/L Blood Urea Nitrogen 22 H 7-18 MG/DL Creatinine 1.56 H 0.60-1.30 MG/DL Estimat Glomerular Filtration Rate 33 BUN/Creatinine Ratio 14 Glucose Level 211 H 70-105 MG/DL Calcium Level 8.9 8.5-10.1 MG/DL Total Bilirubin 0.4 0.1-1.0 MG/DL Aspartate Amino Transf (AST/SGOT) 23 5-34 U/L Alanine Aminotransferase (ALT/SGPT) 27 0-55 U/L Alkaline Phosphatase 62 40-136 U/L Total Protein 6.8 6.4-8.2 GM/DL Albumin 3.9 3.2-4.5 GM/DL Prothrombin Time 25.5 H 12.2-14.7 SEC INR Comment 2.3 H 0.8-1.4 Activated Partial Thromboplast Time 33 24-35 SEC Urine Color YELLOW Urine Clarity CLEAR Urine pH 5 5-9 Urine Specific [place]wood 1.020 1.016-1.022 Urine Protein 1+ H NEGATIVE Urine Glucose (UA) 3+ H NEGATIVE Urine Ketones NEGATIVE NEGATIVE Urine Nitrite NEGATIVE NEGATIVE Urine Bilirubin NEGATIVE NEGATIVE Urine Urobilinogen NORMAL NORMAL MG/DL Urine Leukocyte Esterase 1+ H NEGATIVE Urine RBC (Auto) NEGATIVE NEGATIVE Urine RBC NONE /HPF Urine WBC 5-10 H /HPF Urine Crystals NONE /LPF Urine Bacteria TRACE /HPF Urine Casts NONE /LPF Urine Mucus NEGATIVE /LPF Urine Culture Indicated YES My Orders Orders - CYNDEE LATHAM MD Cbc With Automated Diff (05/01/17 06:47) Comprehensive Metabolic Panel (05/01/17 06:47) Ua Culture If Indicated (05/01/17 06:47) Chest 1 View, Ap/Pa Only (05/01/17 06:47) Pelvis With Left Hip 2-3 Views (05/01/17 06:47) Morphine Injection (Morphine Injection (05/01/17 07:15) Bryant Cath Insertion (05/01/17 07:12) Protime With Inr (05/01/17 07:25) Partial Thromboplastin Time (05/01/17 07:25) Saline Lock/Iv-Start (05/01/17 07:47) Ns Iv 1000 Ml (Sodium Chloride 0.9%) (05/01/17 07:47) Urine Culture (05/01/17 08:20) Phytonadione Oral Solution (Mephyton Ora (05/01/17 08:45) Fresh Frozen Plasma (05/01/17 08:45) Abo Rh Type (05/01/17 08:45) Medications Given in ED Current Medications Medications Dose Ordered Sig/Jean Claude Route Start Time Stop Time Status Last Admin Dose Admin Morphine Sulfate 5 mg ONCE ONCE IVP 05/01/17 07:15 05/01/17 07:16 DC 05/01/17 07:20 5 MG Phytonadione 5 mg ONCE ONCE PO 05/01/17 08:45 05/01/17 08:46 DC 05/01/17 09:39 5 MG Vital Signs/I&O Vital Sign - Last 12Hours 05/01/17 06:37 Temp 95.6 Pulse 81 Resp 16 B/P (MAP) 184/89 (120) Pulse Ox 96 O2 Delivery Room Air Blood Pressure Mean: 120 Progress Note : Time: 08:41 Progress Note Patient's INR returned 2.3. I discussed the case again with Dr. Mccann who states either he or Dr. Ventura would like to perform the surgery this evening. He therefore would like reversal agents given in preparation for surgery. I discussed with Dr. Sherman. We have elected to give vitamin K 5 mg orally and 2 units of FFP. The surgical team should consider possibly giving another one or 2 units of FFP at the time of surgery as well as the reversal effect of FFP may be somewhat transient. Dr. Mccann requested another INR be checked at noon. Rocephin will be given for urinary tract infection. Patient has a penicillin allergy but has tolerated cephalosporins in the past. Diagnostic Imaging Diagonstic Imaging: Xray Plain Films/CT/US/NM/MRI: pelvis, hip Comments X-ray of the left hip and pelvis viewed by me and report reviewed. See report below: NAME: NEAL GRANADOS [facility] REC#: [id number] PT STATUS: REG ER : 1950 PHYSICIAN: CYNDEE LATHAM MD ADMIT DATE: 05/01/17/ER Signed Date of Exam: 05/01/17 PELVIS WITH LEFT HIP 2-3 VIEWS INDICATION: Fall. FINDINGS: There is a comminuted intertrochanteric fracture of the left femur. Femoral head remains within the acetabulum. The proximal right femur is intact. Bony pelvis is intact. Soft tissues are unremarkable. IMPRESSION: Comminuted intertrochanteric fracture of the left femur. Dictated by: Dictated on workstation # [id number] Dict: 05/01/1733 Trans: 05/01/17906 Interpreted by: BONY CALDERON MD Electronically signed by: BONY CALDERON MD 05/01/17 09 Diagonstic Imaging: Xray Plain Films/CT/US/NM/MRI: chest Comments Chest x-ray viewed by me and report reviewed. See report below: NAME: NEAL GRANADOS [facility] REC#: [id number] PT STATUS: REG ER : 1950 PHYSICIAN: CYNDEE LATHAM MD ADMIT DATE: 05/01/17/ER Signed Date of Exam: 05/01/17 CHEST 1 VIEW, AP/PA ONLY INDICATION: Chest pain. FINDINGS: The heart size, mediastinal configuration, and pulmonary vascularity are within normal limits. There is no pleural effusion, pneumothorax, or pneumonia. The osseous structures are unremarkable. IMPRESSION: No acute cardiopulmonary abnormality. Dictated by: Dictated on workstation # [id number] Dict: 05/01/17722 Trans: 05/01/17 0854 Interpreted by: BONY CALDERON MD Electronically signed by: BONY CALDERON MD 05/01/17 0854 Departure Communication (Admissions) Time/Spoke to Admitting Phy: 08:[address] Mccann Time/Spoke to Consulting Phy: 09:04 Communication/Consulting Dr. Russo Impression Impression: Primary Impression: Closed left hip fracture Qualified Codes: S72.002A - Fracture of unspecified part of neck of left femur , initial encounter for closed fracture Additional Impressions: Anticoagulated Urinary tract infection Qualified Codes: N39.0 - Urinary tract infection, site not specified Fall on same level Qualified Codes: W18.30XA - Fall on same level, unspecified, initial encounter Disposition: ADMITTED INPATIENT Condition: Improved Admissions Decision to Admit Reason: Admit from ER (Trauma) Decision to Admit/Date: May 01, 2017 Time/Decision to Admit Time: 07:10 Departure-Patient Inst. Referrals: SHAKEEL RUSSO DO (PCP/Family) Primary Care Physician CYNDEE LATHAM MD May 01, 2017 08:38
[2017-05-01 08:43] LABS: BACTERIA,URINE TRACE /HPF
[2017-05-01] MEDS ORDERED: VITAMIN K 1 MG/ML ORAL SOLN 1 ML SYRINGE PO ONE (08:45)
--- OUTSIDE RECORDS SUMMARY | 2017-05-01 09:27 | XMS REPORT | Clinical Summary ---
Author Author [facility] Organization [facility] Address Unknown Phone Unavailable Care Team Providers Care Grey Percher Name Role Phone PCP Unavailable Source Comments Some departments are not documenting in the electronic medical record. If you do not see the information that you expected, contact Release of Information in the Health Information Management department at [phone] for further assistance in locating additional records.[facility] Allergies Active Allergy Reactions Severity Noted Date [...]
--- OUTSIDE RECORDS SUMMARY | 2017-05-01 09:32 | XMS REPORT | Continuity of Care Document ---
Author Author [facility] Organization [facility] Address Unknown Phone Unavailable Allergies Active Description Code Type Severity Reaction Onset Reported/Identified Relationship to Patient Clinical Status Yes PENICILLIN PENICILLIN Unknown HIVES 11/04/2013 Yes Penicillins [id number] Drug Allergy Moderate HIVES 12/21/2014 Yes hydrocodone [id number] Drug Allergy Unknown VOMITING 12/21/2014 Medications There [...] AMANDEEP Patel Ot V13.02 12/29/2014 KEENAN GUTIERREZ SPUD DRILLER Ot V76.12 12/29/2014 STEFF DOMINGUEZ, AMANDEEP Patel Ot 577.9 12/29/2014 AMANDEEP ARTIS MD Ot V81.5 12/29/2014 GLENNY DOMINGUEZ, INESSA Ray Ot K21.9 12/29/2014 GLENNY DOMINGUEZ, INESSA M Ot Z01.818 01/13/2015 GLENNY DOMINGUEZ, INESSA M Ot K31.84 03/07/2015 STEFF DOMINGUEZ, AMANDEEP A Ot 577.9 03/07/2015 STEFF DOMINGUEZ, AMANDEEP A Ot 599.70 03/07/2015 STEFF DOMINGUEZ, AMANDEEP A Ot V13.02 03/07/2015 QUICK, KEENAN Chicas SPUD DRILLER Ot V76.12 03/07/2015 STEFF DOMINGUEZ, AMANDEEP A Ot 577.9 03/07/2015 STEFF DOMINGUEZ, AMANDEEP A Ot V81.5 03/07/2015 GLENNY DOMINGUEZ, INESSA M Ot K21.9 03/07/2015 GLENNY DOMINGUEZ, INESSA M Ot Z01.818 03/07/2015 GLENNY DOMINGUEZ, INESSA M Ot K31.84 03/07/2015 STEFF DOMINGUEZ, AMANDEEP A Ot 577.9 03/07/2015 STEFF DOMINGUEZ, AMANDEEP A Ot 599.70 03/07/2015 STEFF DOMINGUEZ, AMANDEEP A Ot V13.02 03/07/2015 QUICK, KEENAN Chicas SPUD DRILLER Ot V76.12 03/07/2015 STEFF DOMINGUEZ, AMANDEEP A Ot 577.9 03/07/2015 STEFF DOMINGUEZ, AMANDEEP A Ot V81.5 03/07/2015 GLENNY DOMINGUEZ, INESSA M Ot K21.9 03/07/2015 GLENNY DOMINGUEZ, INESSA M Ot Z01.818 03/07/2015 GLENNY DOMINGUEZ, INESSA M Ot K31.84 03/07/2015 STEFF DOMINGUEZ, AMANDEEP A Ot 577.9 03/07/2015 STEFF DOMINGUEZ, AMANDEEP A Ot 599.70 03/07/2015 STEFF DOMINGUEZ, AMANDEEP A Ot V13.02 03/07/2015 QUICK, KEENAN Chicas SPUD DRILLER Ot V76.12 03/07/2015 STEFF DOMINGUEZ, AMANDEEP A [...] 03/08/2015 ORENDER DO, SHAKEEL S Ot Z79.4 SKILLED NURSING (CURRENT) USE OF INSULIN 03/08/2015 MELANYNDER DO, [...] BRUCE DO Ot M81.0 05/13/2015 KEENAN GUTIERREZ SPUD DRILLER Ot Z12.31 05/21/2016 LEAH MONTERO DO Ot E11.649 TYPE 2 DIABETES MELLITUS WITH HYPOGLYCEM 05/21/2016 LEAH MONTERO DO Ot I10 ESSENTIAL (PRIMARY) HYPERTENSION 05/21/2016 WINSTON LEAH BENNETT Ot M47.812 SPONDYLOSIS W/O MYELOPATHY OR RADICULOPA 05/21/2016 BAKERSFIELD LEAH BENNETT Ot M47.814 SPONDYLOSIS W/O MYELOPATHY [...] R60.0 LOCALIZED EDEMA 09/26/2016 JONATHAN DO, ADRIANA aDnny Ot S42.252G DISP FX OF GREATER TUBEROSITY [...] LESION, UNSPECIFIED, LEFT SHOUL 10/20/2016 JONATHAN DO, ADRIAAN F Ot R60.0 LOCALIZED EDEMA 10/20/2016 JONATHAN [...] Ot Y99.8 OTHER EXTERNAL CAUSE STATUS 12/25/2016 AMANDEEP ARTIS MD Ot 577.9 PANCREATIC DISEASE NOS 12/25/2016 AMANDEEP ARTIS MD Ot 599.70 HEMATURIA, UNSPECIFIED 12/25/2016 AMANDEEP ARTIS MD Ot V13.02 PERSONAL HISTORY, URINARY (TRACT) INFECT 12/25/2016 KEENAN GUTIERREZ Ot V76.12 OTH SCREEN MAMMO-MALIGN NEOPLASM OF PAM 12/25/2016 AMANDEEP ARTIS MD Ot 577.9 PANCREATIC DISEASE NOS 12/25/2016 AMANDEEP ARTIS MD Ot V81.5 SCREEN FOR NEPHROPATHY 12/25/2016 GLENNY DOMINGUEZ, INESSA Ray Ot K21.9 GASTRO-ESOPHAGEAL REFLUX DISEASE WITHOUT 12/25/2016 GLENNY DOMINGUEZ, INESSA Ray Ot Z01.818 ENCOUNTER FOR OTHER PREPROCEDURAL EXAMIN 12/25/2016 GLENNY DOMINGUEZ, INESSA Ray Ot K31.84 GASTROPARESIS 12/25/2016 ORENDANJALI BENNETT, SHAKEEL S Ot M81.0 AGE-RELATED OSTEOPOROSIS W/O CURRENT PAT 12/25/2016 KEENAN GUTIERREZ Ot Z12.31 ENCNTR SCREEN MAMMOGRAM FOR MALIGNANT NE 12/25/2016 JONATHAN BENNETT ADRIANA F Ot M75.92 SHOULDER LESION, UNSPECIFIED, LEFT SHOUL 12/25/2016 JONATHAN BENNETT ADRIANA F Ot R60.0 LOCALIZED EDEMA 12/25/2016 JONATHAN BENNETT ADRIANA F Ot S42.252G DISP FX OF GREATER TUBEROSITY OF L HUMER 12/25/2016 JONATHAN BENNETT ADRIANA F Ot X58.XXXA EXPOSURE TO OTHER SPECIFIED FACTORS, INI 12/25/2016 JONATHAN BENNETT ADRIANA F Ot Y99.8 OTHER EXTERNAL CAUSE STATUS 05/01/2017 AMANDEEP ARTIS MD Ot 577.9 PANCREATIC DISEASE NOS 05/01/2017 AMANDEEP ARTIS MD Ot 599.70 HEMATURIA, UNSPECIFIED 05/01/2017 AMANDEEP ARTIS MD Ot V13.02 PERSONAL HISTORY, URINARY (TRACT) INFECT 05/01/2017 KEENAN GUTIERREZ Ot V76.12 OTH SCREEN MAMMO-MALIGN NEOPLASM OF PAM 05/01/2017 AMANDEEP ARTIS MD Ot 577.9 PANCREATIC DISEASE NOS 05/01/2017 AMANDEEP ARTIS MD Ot V81.5 SCREEN FOR NEPHROPATHY 05/01/2017 GLENNY DOMINGUEZ, INESSA Ray Ot K21.9 GASTRO-ESOPHAGEAL REFLUX DISEASE WITHOUT 05/01/2017 INESSA MURRIETA MD Ot Z01.818 ENCOUNTER FOR OTHER PREPROCEDURAL EXAMIN 05/01/2017 INESSA MURRIETA MD Ot K31.84 GASTROPARESIS 05/01/2017 ORENDER DOSHAKEEL S Ot M81.0 AGE-RELATED OSTEOPOROSIS W/O CURRENT PAT 05/01/2017 KEENAN GUTIERREZ Ot Z12.31 ENCNTR SCREEN MAMMOGRAM FOR MALIGNANT NE 05/01/2017 JONATHAN DO, ADRIANA F Ot M75.92 SHOULDER LESION, UNSPECIFIED, LEFT SHOUL 05/01/2017 JONATHAN DO, ADRIANA F Ot R60.0 LOCALIZED EDEMA 05/01/2017 JONATHAN DO, ADRIANA F Ot S42.252G DISP FX OF GREATER TUBEROSITY OF L HUMER 05/01/2017 JONATHAN DO, ADRIANA F Ot X58.XXXA EXPOSURE TO OTHER SPECIFIED FACTORS, INI 05/01/2017 JONATHAN DO, ADRIANA F Ot Y99.8 OTHER EXTERNAL CAUSE STATUS 05/01/2017 AMANDEEP ARTIS MD Ot 577.9 PANCREATIC DISEASE NOS 05/01/2017 STEFF DOMINGUEZ, AMANDEEP Patel Ot 599.70 HEMATURIA, UNSPECIFIED 05/01/2017 AMANDEEP ARTIS MD Ot V13.02 PERSONAL HISTORY, URINARY (TRACT) INFECT 05/01/2017 KEENAN GUTIERREZ Ot V76.12 OTH SCREEN MAMMO-MALIGN NEOPLASM OF PAM 05/01/2017 AMANDEEP ARTIS MD Ot 577.9 PANCREATIC DISEASE NOS 05/01/2017 AMANDEEP ARTIS MD Ot V81.5 SCREEN FOR NEPHROPATHY 05/01/2017 INESSA MURRIETA MD Ot K21.9 GASTRO-ESOPHAGEAL REFLUX DISEASE WITHOUT 05/01/2017 INESSA MURRIETA MD Ot Z01.818 ENCOUNTER FOR OTHER PREPROCEDURAL EXAMIN 05/01/2017 INESSA MURRIETA MD Ot K31.84 GASTROPARESIS 05/01/2017 MELANYNDER DOSHAKEEL S Ot M81.0 AGE-RELATED OSTEOPOROSIS W/O CURRENT PAT 05/01/2017 KEENAN GUTIERREZ Ot Z12.31 ENCNTR SCREEN MAMMOGRAM FOR MALIGNANT NE 05/01/2017 ADRIANA CASTILLO DO Ot M75.92 SHOULDER LESION, UNSPECIFIED, LEFT SHOUL 05/01/2017 ADRIANA CASTILLO DO Ot R60.0 LOCALIZED EDEMA 05/01/2017 ADRIANA CASTILLO DO Ot S42.252G DISP FX OF GREATER TUBEROSITY OF L HUMER 05/01/2017 ADRIANA CASTILLO DO Ot X58.XXXA EXPOSURE TO OTHER SPECIFIED FACTORS, INI 05/01/2017 ADRIANA CASTILLO DO Ot Y99.8 OTHER EXTERNAL [...] measurement by glucometer (mass/volume) 87 mg/dL 70-110 Complete blood count (CBC) with automated white blood cell (WBC) differential - 05/01/17 06:43 Blood leukocytes automated count (number/volume) 7.9 10*3/uL 4.3-11.0 Blood erythrocytes automated count (number/volume) 4.26 10*6/uL 4.35-5.85 Venous blood hemoglobin measurement (mass/volume) 12.2 g/dL 11.5-16.0 Blood hematocrit (volume fraction) 38 % 35-52 Automated erythrocyte mean corpuscular volume 89 [foz_us] 80-99 Automated erythrocyte mean corpuscular hemoglobin (mass per erythrocyte) 29 pg 25-34 Automated erythrocyte mean corpuscular hemoglobin concentration measurement ( mass/volume) 32 g/dL 32-36 Automated erythrocyte distribution width ratio 13.9 % 10.0-14.5 Automated blood platelet count (count/volume) 311 10*3/uL 130-400 Automated blood platelet mean volume measurement 10.2 [foz_us] 7.4-10.4 Automated blood neutrophils/100 leukocytes 74 % 42-75 Automated blood lymphocytes/100 leukocytes 19 % 12-44 Blood monocytes/100 leukocytes 5 % 0-12 Automated blood eosinophils/100 leukocytes 1 % 0-10 Automated blood basophils/100 leukocytes 0 % 0-10 Blood neutrophils automated count (number/volume) 5.9 10*3 1.8-7.8 Blood lymphocytes automated count (number/volume) 1.5 10*3 1.0-4.0 Blood monocytes automated count (number/volume) 0.4 10*3 0.0-1.0 Automated eosinophil count 0.1 10*3/uL 0.0-0.3 Automated blood basophil count (count/volume) 0.0 10*3/uL 0.0-0.1 Comprehensive metabolic panel - 05/01/17 06:43 Serum or plasma sodium measurement (moles/volume) 138 mmol/L 135-145 Serum or plasma potassium measurement (moles/volume) 4.7 mmol/L 3.6-5.0 Serum or plasma chloride measurement (moles/volume) 106 mmol/L 98-107 Carbon dioxide 18 mmol/L 21-32 Serum or plasma anion gap determination (moles/volume) 14 mmol/L 5-14 Serum or plasma urea nitrogen measurement (mass/volume) 22 mg/dL 7-18 Serum or plasma creatinine measurement (mass/volume) 1.56 mg/dL 0.60-1.30 Serum or plasma urea nitrogen/creatinine mass ratio 14 NRG Serum or plasma creatinine measurement with calculation of estimated glomerular filtration rate 33 NRG Serum or plasma glucose measurement (mass/volume) 211 mg/dL 70-105 Serum or plasma calcium measurement (mass/volume) 8.9 mg/dL 8.5-10.1 Serum or plasma total bilirubin measurement (mass/volume) 0.4 mg/dL 0.1-1.0 Serum or plasma alkaline phosphatase measurement (enzymatic activity/volume) 62 U/L 40-136 Serum or plasma aspartate aminotransferase measurement (enzymatic activity/ volume) 23 U/L 5-34 Serum or plasma alanine aminotransferase measurement (enzymatic activity/volume ) 27 U/L 0-55 Serum or plasma protein measurement (mass/volume) 6.8 g/dL 6.4-8.2 Serum or plasma albumin measurement (mass/volume) 3.9 g/dL 3.2-4.5 PT panel in platelet poor plasma by coagulation assay - 05/01/17 07:52 Prothrombin time (PT) in platelet poor plasma by coagulation assay 25.5 s 12.2-14.7 INR in platelet poor plasma or blood by coagulation assay 2.3 0.8-1.4 Activated partial thromboplastin time (aPTT) in platelet poor plasma bycoagulation assay - 05/01/17 07:52 Activated partial thromboplastin time (aPTT) in platelet poor plasma bycoagulation assay 33 s 24-35 Complete urinalysis with reflex to culture - 05/01/17 08:20 Urine color determination YELLOW NRG Urine clarity determination CLEAR NRG Urine pH measurement by test strip 5 5-9 Specific gravity of urine by test strip 1.020 1.016- 1.022 Urine protein assay by test strip, semi-quantitative 1+ NEGATIVE Urine glucose detection by automated test strip 3+ NEGATIVE Erythrocytes detection in urine sediment by light microscopy NEGATIVE NEGATIVE Urine ketones detection by automated test strip NEGATIVE NEGATIVE Urine nitrite detection by test strip NEGATIVE NEGATIVE Urine total bilirubin detection by test strip NEGATIVE NEGATIVE Urine urobilinogen measurement by automated test strip (mass/volume) NORMAL NORMAL Urine leukocyte esterase detection by dipstick 1+ NEGATIVE Automated urine sediment erythrocyte count by microscopy (number/high power field) NONE NRG Automated urine sediment leukocyte count by microscopy (number/high power field ) [HPF] NRG Bacteria detection in urine sediment by light microscopy TRACE NRG Crystals detection in urine sediment by light microscopy NONE NRG Casts detection in urine sediment by light microscopy NONE NRG Mucus detection in urine sediment by light microscopy NEGATIVE NRG Complete urinalysis with reflex to culture YES NRG Encounters ACCT No. Visit Date/Time Discharge Status Pt. Type Provider Facility Loc./Unit Complaint [id number] 11/03/2013 15:38:40 11/03/2013 23:59:59 CLS Outpatient Jose Mckeon [id number] 09/22/2016 12:57:00 09/22/2016 23:59:59 CLS Outpatient JONATHAN DO, ADRIANA Delgado [facility] RAD NONDISPLACED AVULSION FX [id number] 05/21/2016 14:06:00 05/21/2016 16:10:00 DIS Emergency WINSTON LEAH BENNETT [facility] ER BACK PAIN,L SHOULDER PAIN [id number] 04/20/2015 13:22:00 04/20/2015 23:59:59 CLS Outpatient KEENAN GUTIERREZ [facility] RAD SCREENING [id number] 04/15/2015 11:26:00 04/15/2015 23:59:59 CLS Outpatient SHAKEEL BRUCE DO [facility] RAD OSTEOPENIA [id number] 03/07/2015 16:28:00 03/08/2015 14:15:00 DIS Inpatient SHAKEEL BRUCE DO [facility] ICU POSSIBLE CVA, HYPOTENSION,HYPERGLYCEMIA, [id number] 12/29/2014 07:13:00 12/29/2014 23:59:59 CLS Outpatient GLENNY DOMINGUEZ, INESSA Ray [facility] CARD GASTOPARAESIS [id number] 12/21/2014 09:35:00 12/21/2014 13:00:00 DIS Outpatient INESSA MURRIETA MD [facility] SDC REFLUX [id number] 12/16/2014 05:38:00 12/16/2014 23:59:59 CLS Outpatient INESSA MURRIETA MD [facility] PREOP REFLUX [id number] 11/04/2013 10:39:00 11/04/2013 23:59:59 CLS Outpatient AMANDEEP ARTIS MD [facility] RAD PANCREATIC HEAD MASS [id number] 09/17/2013 14:59:00 09/17/2013 23:59:59 CLS Outpatient KEENAN GUTIERREZ [facility] RAD SCREENING [id number] 07/28/2013 08:10:00 07/28/2013 23:59:59 CLS Outpatient AMANDEEP ARTIS MD [facility] RAD RECURRING UTI HEMATURIA [id number] 03/12/2013 18:59:00 03/13/2013 00:55:00 DIS Emergency CYNDEE ALTHAM MD [facility] ER HIGH BLOOD SUGAR [id number] 05/01/2017 06:39:00 ACT Emergency CYNDEE LATHAM MD Via [facility] ER FALL [id number] 04/13/2017 20:06:28 ACT Unknown
[2017-05-01 11:00] VITALS: BP 150/78
[2017-05-01] MEDS ORDERED: NS IV 1000 ML 1,000 ML ONE (11:01)
[2017-05-01] MEDS: morphine INJ 4 MG/ML 1 ML (VIAL/SYRINGE) IV PRN ×4 (11:14→21:44)
[2017-05-01] MEDS ORDERED: ONDANSETRON 4 MG/2 ML (SDV) Z0FRAN IV PRN (11:15)
[2017-05-01] MEDS: NS IV 1000 ML 1,000 ML IV SCH ×3 (11:16→21:44)
[2017-05-01] MEDS ORDERED: METF1000 PO (11:18)
[2017-05-01] MEDS ORDERED: INSU100V6 SC (11:18)
[2017-05-01] MEDS ORDERED: TRAM50TA2 PO (11:18)
[2017-05-01] MEDS ORDERED: ALEN70TA47 PO (11:33)
[2017-05-01] MEDS ORDERED: WARF4TAB PO (11:33)
[2017-05-01] MEDS ORDERED: ACET-2267 PO (11:35)
[2017-05-01] MEDS: cefTRIAXone 1 GM/NS 100 ML IVPB IV SCH ×2 (13:27)
[2017-05-01 14:02] VITALS: BP 136/64
[2017-05-01 14:04] VITALS: BP 133/63
[2017-05-01 14:40] LABS: INR 1.8 (0.8-1.4); PROTHROMBIN TIME PATIENT 20.6 SEC (12.2-14.7)
[2017-05-01] MEDS ORDERED: LACTATED RINGERS 1,000 ML IV PRN ×2 (14:46→14:50)
[2017-05-01 16:00] VITALS: BP 141/65
--- NOTE | 2017-05-01 17:22 | Consultation ---
History of Present Illness History of Present Illness Patient Consulted On(blanco/time) 05/01/17 17:17 Date Seen by Provider: May 01, 2017 Time Seen by Provider: 12:30 History of Present Illness This is a 76 year old female who was sleeping in her chair when she got up to go to the bathroom and lost her footing and fell on her left hip. She was brought to the [facility] ER where she was found to have a left hip fracture and was transferred to [facility] for surgical evaluation. She has a left intertrochanteric femur fracture. She has been admitted to [facility] for pending surgery but will need reversal of her coumadin prior to surgery. She also has diabetes--insulin requiring. I am asked to consult for medical management. She was also found to have a UTI. Allergies and Home Medications Allergies Coded Allergies: Penicillins (Verified Allergy, Intermediate, HIVES, 12/21/14) hydrocodone (Verified Adverse Reaction, Unknown, VOMITING, 11/04/13) Home Medications Acetaminophen 500 Mg Tablet, 500-1,000 MG PO Q6H PRN for PAIN-MILD, (Reported) Alendronate Sodium 70 Mg Tablet, 70 MG PO Sa, (Reported) Atorvastatin Calcium 10 Mg Tablet, 10 MG PO HS, (Reported) Calcium Carbonate/Vitamin D3 1 Each Tablet, 1 TAB PO BID, (Reported) Carvedilol 25 Mg Tablet, 25 MG PO BID, (Reported) Citalopram Hydrobromide 20 Mg Tablet, 20 MG PO HS, (Reported) Cyanocobalamin (Vitamin B-12) 1,000 Mcg Tablet, 1,000 MCG PO DAILY, (Reported) Insulin Glargine,Hum.rec.anlog 100 Unit/1 Ml Vial, 26 UNITS SC HS, (Reported) Insulin Lispro 100 Unit/1 Ml Vial, SQ QID, (Reported) SLIDING SCALE AND CORRECTION FACTOR 1 UNIT FOR EVERY 5GM OF CARBS Metformin HCl 1,000 Mg Tablet, 1,000 MG PO BID WITH MEALS, (Reported) [place]-3/Dha/Epa/Fish Oil 1 Each Capsule, 1,000 MG PO BID, (Reported) Pantoprazole Sodium 40 Mg Tablet.dr, 40 MG PO DAILY, (Reported) Tramadol HCl 50 Mg Tablet, 50 MG PO TID PRN for PAIN-MODERATE, (Reported) Vit C/Vit E/Lutein/Min/[place]-3 1 Each Capsule, 1 CAP PO DAILY, (Reported) Warfarin Sodium 4 Mg Tablet, 4 MG PO HS, (Reported) Patient Home Medication List Home Medication List Reviewed: Yes Past Xbswinq-Brdgnq-Cbeezh Hx Patient Social History Alcohol Use: Denies Use Recreational Drug Use: No Smoking Status: Never a Smoker 2nd Hand Smoke Exposure: No Recent Foreign Travel: No Contact w/Someone Who Travel: No Recent Infectious Disease Expo: No Recent Hopitalizations: No Physical Abuse: No Sexual Abuse: No Mistreated: No Fear: No Immunizations Up To Date Date of Pneumonia Vaccine: Mar 17, 2009 Date of Influenza Vaccine: Mar 02, 2017 Seasonal Allergies Seasonal Allergies: No Surgeries History of Surgeries: Yes Surgeries: Bladder Surgery, Section, Gallbladder, Hysterectomy Respiratory History of Respiratory Disorde: No Cardiovascular History of Cardiac Disorders: Yes Cardiac Disorders: Deep Vein Thrombosis, Hypertension Neurological History of Neurological Disord: Yes (1997 ) Neurological Disorders: Stroke Reproductive System Hx Reproductive Disorders: No Sexually Transmitted Disease: No Genitourinary History of Genitourinary Disor: Yes Genitourinary Disorders: UTI-Chronic Gastrointestinal History of Gastrointestinal Di: No Musculoskeletal History of Musculoskeletal Dis: Yes (OSTEOPENIA) Endocrine History of Endocrine Disorders: Yes Endocrine Disorders: Diabetes, Insulin dep Are Your Blood Sugars Over 250: No HEENT History of HEENT Disorders: No Cancer History of Cancer: Yes (1975-) Cancer: Cervical Psychosocial History of Psychiatric Problem: No Suicide Risk Score: 0 Integumentary History of Skin or Integumenta: No Blood Transfusions History of Blood Disorders: 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) Family Medical History Significant Family History: No Pertinent Family Hx Family Medial History: Asthma 19 FATHER Diabetes mellitus 19 FATHER 19 MOTHER Hypertension 19 FATHER 19 MOTHER Review of Systems-General Constitutional: No no symptoms reported, No see HPI, No chills, No diaphoresis , No dizziness, No fever, No malaise, No weakness, No weight gain, No weight loss, No other EENTM: No see HPI, No no symptoms reported, No ear discharge, No hearing loss, No ear pain, No blurred vision, No double vision, No eye pain, No tearing, No vision loss, No dental problems, No hoarseness, No mouth pain, No mouth swelling , No epistaxis, No nose congestion, No nose pain, No throat pain, No throat swelling, No other Respiratory: No no symptoms reported, No see HPI, No cough, No dyspnea on exertion, No hemoptysis, No orthopnea, No phlegm, No short of breath, No stridor , No wheezing, No other Cardiovascular: No no symptoms reported, No see HPI, No chest pain, No edema, No Hx of Intervention, No palpitations, No syncope, No vascular heart diseas, No other Gastrointestinal: No RUQ, No LUQ, No RLQ, No LLQ, No no symptoms reported, No see HPI, No abdominal pain, No constipation, No diarrhea, No dysphagia, No hematemesis, No heartburn, No jaundice, No loss of appetite, No melena, No nausea, No vomiting, No other Genitourinary: No no symptoms reported, No see HPI, No decreased output, No discharge, No dysuria, No frequency, No hematuria, No hesitancy, No incontinence , No nocturia, No pain, No other Musculoskeletal: joint pain (left hip) Skin: No no symptoms reported, No see HPI, No change in color, No change in hair/nails, No dryness, No hx of skin cancer, No lesions, No lumps, No pruritus , No rash, No other Psychiatric/Neurological: Denies No Symptoms Reported, Denies See HPI, Denies Anxiety, Denies Depressed, Denies Emotional Problems, Denies Headache, Denies Numbness, Denies Paresthesia, Denies Pre-Existing Deficit, Denies Seizure, Denies Tingling, Denies Tremors, Denies Weakness, Denies Other Physical Exam-General Problems Physical Exam Vital Signs Vital Signs - First Documented 05/01/17 06:37 Temp 95.6 Pulse 81 Resp 16 B/P (MAP) 184/89 (120) Pulse Ox 96 O2 Delivery Room Air Capillary Refill : Less Than 3 Seconds General Appearance: WD/WN, no apparent distress HEENT: normal ENT inspection Neck: supple Respiratory: lungs clear Cardiovascular: regular rate, rhythm, gallop/S4 Gastrointestinal: normal bowel sounds, non tender, soft Rectal: deferred Back: no CVA tenderness Extremities: no calf tenderness, pedal edema Neurologic/Psychiatric: alert, oriented x 3 Skin: warm/dry Comments Laboratory Tests 05/01/17 06:43: White Blood Count 7.9, Red Blood Count 4.26L, Hemoglobin 12.2, Hematocrit 38, Mean Corpuscular Volume 89, Mean Corpuscular Hemoglobin 29, Mean Corpuscular Hemoglobin Concent 32, Red Cell Distribution Width 13.9, Platelet Count 311, Mean Platelet Volume 10.2, Neutrophils (%) (Auto) 74, Lymphocytes (%) (Auto) 19 , Monocytes (%) (Auto) 5, Eosinophils (%) (Auto) 1, Basophils (%) (Auto) 0, Neutrophils # (Auto) 5.9, Lymphocytes # (Auto) 1.5, Monocytes # (Auto) 0.4, Eosinophils # (Auto) 0.1, Basophils # (Auto) 0.0, Sodium Level 138, Potassium Level 4.7, Chloride Level 106, Carbon Dioxide Level 18L, Anion Gap 14, Blood Urea Nitrogen 22H, Creatinine 1.56H, Estimat Glomerular Filtration Rate 33, BUN/ Creatinine Ratio 14, Glucose Level 211H, Calcium Level 8.9, Total Bilirubin 0.4 , Aspartate Amino Transf (AST/SGOT) 23, Alanine Aminotransferase (ALT/SGPT) 27, Alkaline Phosphatase 62, Total Protein 6.8, Albumin 3.9 05/01/17 07:52: Prothrombin Time 25.5H, INR Comment 2.3H, Activated Partial Thromboplast Time 33 05/01/17 08:20: Urine Color YELLOW, Urine Clarity CLEAR, Urine pH 5, Urine Specific Vassar 1.020, Urine Protein 1+H, Urine Glucose (UA) 3+H, Urine Ketones NEGATIVE, Urine Nitrite NEGATIVE, Urine Bilirubin NEGATIVE, Urine Urobilinogen NORMAL, Urine Leukocyte Esterase 1+H, Urine RBC (Auto) NEGATIVE, Urine RBC NONE, Urine WBC 5- 10H, Urine Crystals NONE, Urine Bacteria TRACE, Urine Casts NONE, Urine Mucus NEGATIVE, Urine Culture Indicated YES 05/01/17 11:00: Glucometer 181H 05/01/17 14:07: Prothrombin Time 20.6H, INR Comment 1.8H Assessment/Plan Assessment/Plan Admission Diagnosis/Plan 1. Left intertrochanteric hip fracture--ORIF by ortho once coumadin reversed 2. 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 Hypertension--resume home meds 4. Diabetes mellitus--insulin requiring--start SSI and add levemir once post-op 5. GERD--resume protonix 6. Memory Loss--recent CT scan shows microvascular changes with history of lacunar infarcts and has a family history of alzheimers so may start aricept during hospital stay Admission Status: Inpatient Order (span 2 midnights) Reason for Inpatient Admission: Patient requires surgery for hip fracture Clinical Quality Measures DVT/VTE Risk/Contraindication: Risk Factor Score Per Nursin RFS Level Per Nursing on Admit: 4+=Very High SHAKEEL BRUCE DO May 01, 2017 17:22
[2017-05-01] MEDS: CALCIUM CARB + VIT D 600 MG (CALCARB + D) TAB PO SCH (17:23)
[2017-05-01] MEDS: metFORMIN 500 MG (GLUCOPHAGE) TAB PO SCH (17:23)
[2017-05-01 20:00] VITALS: BP 149/68
[2017-05-01] MEDS: CARVEDILOL 12.5 MG (COREG) TABLET PO SCH (20:06)
[2017-05-01] MEDS: ATORVASTATIN 10 MG (LIPITOR) TABLET PO SCH (20:06)
[2017-05-01] MEDS: inSUlin (REGULAR) HUMAN 1 UNIT/0.01 ML (CHARGE PER UNIT) SC SCH (20:48)
[2017-05-01] MEDS ORDERED: CYCLOBENZAPRINE 10 MG (FLEXERIL) TAB PO ONE (23:15)
[2017-05-02] VITALS: BP 149/66
[2017-05-02] MEDS: morphine INJ 4 MG/ML 1 ML (VIAL/SYRINGE) IV PRN ×4 (00:04→20:56)
[2017-05-02 04:00] VITALS: BP 152/84
[2017-05-02] MEDS: NS IV 1000 ML 1,000 ML IV SCH ×2 (05:20→20:48)
[2017-05-02] MEDS: inSUlin (REGULAR) HUMAN 1 UNIT/0.01 ML (CHARGE PER UNIT) SC SCH ×4 (05:22→20:51)
[2017-05-02 06:45] LABS: BASOPHILS % (AUTO) 1 % (0-10); EOSINOPHILS # (AUTO) 0.2 10^3/uL (0.0-0.3); EOSINOPHILS % (AUTO) 2 % (0-10); HEMATOCRIT 31 % (35-52); HEMOGLOBIN 9.7 G/DL (11.5-16.0); LYMPHOCYTES # (AUTO) 1.5 X 10^3 (1.0-4.0); LYMPHOCYTES % (AUTO) 21 % (12-44); MEAN CORPUSCULAR HEMOGLOBIN 28 PG (25-34); MEAN CORPUSCULAR HGB CONC 31 G/DL (32-36); MEAN CORPUSCULAR VOLUME 91 FL (80-99); MEAN PLATELET VOLUME 10.2 FL (7.4-10.4); MONOCYTES # (AUTO) 0.9 X 10^3 (0.0-1.0); MONOCYTES % (AUTO) 12 % (0-12); NEUTROPHILS # (AUTO) 4.7 X 10^3 (1.8-7.8); NEUTROPHILS % (AUTO) 64 % (42-75); PLATELET COUNT 236 10^3/uL (130-400); RED BLOOD COUNT 3.41 10^6/uL (4.35-5.85); RED CELL DISTRIBUTION WIDTH 14.1 % (10.0-14.5); WHITE BLOOD COUNT 7.4 10^3/uL (4.3-11.0)
[2017-05-02 06:54] LABS: INR 1.3 (0.8-1.4); PROTHROMBIN TIME PATIENT 16.7 SEC (12.2-14.7)
[2017-05-02] MEDS: metFORMIN 500 MG (GLUCOPHAGE) TAB PO SCH ×2 (06:59→17:30)
[2017-05-02] MEDS: CALCIUM CARB + VIT D 600 MG (CALCARB + D) TAB PO SCH ×2 (06:59→17:30)
[2017-05-02] MEDS: PANTOPRAZOLE 40 MG (PROTONIX) TAB PO SCH (06:59)
[2017-05-02 07:05] LABS: ALBUMIN 3.6 GM/DL (3.2-4.5); BILIRUBIN,TOTAL 0.5 MG/DL (0.1-1.0); CALCIUM 8.7 MG/DL (8.5-10.1); CREATININE SERUM 1.14 MG/DL (0.60-1.30); POTASSIUM 4.7 MMOL/L (3.6-5.0); TOTAL PROTEIN 6.2 GM/DL (6.4-8.2)
[2017-05-02 08:00] VITALS: BP 188/96
[2017-05-02] MEDS: CARVEDILOL 12.5 MG (COREG) TABLET PO SCH ×2 (08:27→20:51)
--- NOTE | 2017-05-02 08:51 | History & Physicial ---
History of Present Illness History of Present Illness Reason for visit/HPI Ms. De Leon is a pleasant 67 y/o female that presents with CC of acute onset of severe Left hip pain and an inability to ambulate/bear weight on her LLE secondary to sustaining a mechanical GLF while attempting to get out of her recliner yesterday. She subsequently presented to the [facility] ED where plain XRs of her Left hip demonstrated a displaced intertrochanteric fracture of the left femur. Orthopedic service was consulted for definitive management of her injury. She denies head trauma/LOC; denies syncope/seizure activity; denies other musculoskeletal injuries; denies f/c/ns, n/v, cp/sob or other constitutional symptoms. She has no other complaints. Date of Admission May 01, 2017 at 09:01 Date Seen by Provider: May 02, 2017 Time Seen by Provider: 07:40 I consulted on this patient on 05/02/17 08:45 Attending Physician Fam Ventura DO Admitting Physician Leyla Russo DO Consult Allergies and Home Medications Allergies Coded Allergies: Penicillins (Verified Allergy, Intermediate, HIVES, 12/21/14) hydrocodone (Verified Adverse Reaction, Unknown, VOMITING, 11/04/13) Home Medications Acetaminophen 500 Mg Tablet, 500-1,000 MG PO Q6H PRN for PAIN-MILD, (Reported) Alendronate Sodium 70 Mg Tablet, 70 MG PO Sa, (Reported) Atorvastatin Calcium 10 Mg Tablet, 10 MG PO HS, (Reported) Calcium Carbonate/Vitamin D3 1 Each Tablet, 1 TAB PO BID, (Reported) Carvedilol 25 Mg Tablet, 25 MG PO BID, (Reported) Citalopram Hydrobromide 20 Mg Tablet, 20 MG PO HS, (Reported) Cyanocobalamin (Vitamin B-12) 1,000 Mcg Tablet, 1,000 MCG PO DAILY, (Reported) Insulin Glargine,Hum.rec.anlog 100 Unit/1 Ml Vial, 26 UNITS SC HS, (Reported) Insulin Lispro 100 Unit/1 Ml Vial, SQ QID, (Reported) SLIDING SCALE AND CORRECTION FACTOR 1 UNIT FOR EVERY 5GM OF CARBS Metformin HCl 1,000 Mg Tablet, 1,000 MG PO BID WITH MEALS, (Reported) Hardesty-3/Dha/Epa/Fish Oil 1 Each Capsule, 1,000 MG PO BID, (Reported) Pantoprazole Sodium 40 Mg Tablet.dr, 40 MG PO DAILY, (Reported) Tramadol HCl 50 Mg Tablet, 50 MG PO TID PRN for PAIN-MODERATE, (Reported) Vit C/Vit E/Lutein/Min/Hardesty-3 1 Each Capsule, 1 CAP PO DAILY, (Reported) Warfarin Sodium 4 Mg Tablet, 4 MG PO HS, (Reported) Patient Home Medication List Home Medication List Reviewed: Yes Past Ibigbqu-Vlhmmi-Wyhyys Hx Patient Social History Alcohol Use: Denies Use Recreational Drug Use: No Smoking Status: Never a Smoker 2nd Hand Smoke Exposure: No Physical Abuse Screen: No Sexual Abuse: No Recent Foreign Travel: No Contact w/other who traveled: No Recent Hopitalizations: No Recent Infectious Disease Expo: No Immunizations Up To Date Date of Pneumonia Vaccine: Mar 17, 2009 Date of Influenza Vaccine: Mar 02, 2017 Seasonal Allergies Seasonal Allergies: No Surgeries Yes Bladder Surgery, Section, Gallbladder, Hysterectomy Respiratory No Cardiovascular Yes Deep Vein Thrombosis, Hypertension Neurological Yes (1997 ) Stroke Reproductive System : No Hx Reproductive Disorders: No Sexually Transmitted Disease: No Genitourinary Yes UTI-Chronic Gastrointestinal No Musculoskeletal Yes (OSTEOPENIA) Endocrine History of Endocrine Disorders: Yes Endocrine Disorders: Diabetes, Insulin dep Are Your Blood Sugars Over 250: No HEENT History of HEENT Disorders: No Cancer Yes (1975-) Cervical Psychosocial History of Psychiatric Problem: No Integumentary History of Skin or Integumenta: No Blood Transfusions History of Blood Disorders: 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) Family Medical History Significant Family History: No Pertinent Family Hx Family Hx: Asthma 19 FATHER Diabetes mellitus 19 FATHER 19 MOTHER Hypertension 19 FATHER 19 MOTHER Constitutional: no symptoms reported EENTM: no symptoms reported Respiratory: no symptoms reported Cardiovascular: no symptoms reported Gastrointestinal: no symptoms reported Genitourinary: no symptoms reported Musculoskeletal: joint pain, other (Left hip pain) Skin: no symptoms reported Psychiatric/Neurological: No Symptoms Reported Physical Exam Vital Signs Vital Signs - First Documented 05/01/17 06:37 Temp 95.6 Pulse 81 Resp 16 B/P (MAP) 184/89 (120) Pulse Ox 96 O2 Delivery Room Air Capillary Refill : Less Than 3 SecondsLess Than 3 Seconds General Appearance: No Apparent Distress, WD/WN Eyes: Bilateral Eye Normal Inspection, Bilateral Eye PERRL, Bilateral Eye EOMI HEENT: PERRL/EOMI, Normal ENT Inspection, Moist Mucous Membranes Neck: Full Range of Motion, Normal Inspection, Non Tender, Supple Respiratory: No Accessory Muscle Use, No Respiratory Distress Cardiovascular: Regular Rate, Rhythm, Normal Peripheral Pulses Gastrointestinal: Non Tender, Soft Extremity: Normal Capillary Refill, No Calf Tenderness, Other (LLE: shortened/ externally rotated, pain left hip with any ROM, all compartments soft/ compressible, skin intact, no open wounds, motor/sensation grossly intact, foot well perfused.) Neurologic/Psychiatric: Alert, Oriented x3, No Motor/Sensory Deficits, Normal Mood/Affect, 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 Unstable injury that will need operative stabilization. Remain NPO Current INR is 1.3 and safe to proceed with surgery. Pain control SCDs Will plan to proceed to OR later this morning. Appreciate medical comanagement. Pt will get Lovenox bridge and restart her coumadin per medicine post-op for VTE prophylaxis. I anticipate that the patient will need inpatient rehab at the conclusion of her hospital course which I expect to be 2-3 days. I discussed the nature of the injury with the patient in detail including the natural history and prognosis. I also discussed the indications for surgery and the operative plan in detail including the risks, benefits, potential complications and expected outcomes. Risks discussed included significant bleeding, infection, damage to surrounding neurovascular structures, symptomatic malunion, nonunion, hardware failure/ irritation, and potential need for secondary surgical procedures. All of he questions were answered to her satisfaction. She has given informed written consent to proceed as planned. Problems: Admission Diagnosis Intertrochanteric fracture Left proximal femur. Admission Status: Inpatient Order (span 2 midnights) Reason for Inpatient Admission: Intertrochanteric fracture Left proximal femur. Clinical Quality Measures DVT/VTE Risk/Contraindication: Risk Factor Score Per Nursin RFS Level Per Nursing on Admit: 4+=Very High FAM VENTURA DO May 02, 2017 08:51
[2017-05-02] MEDS ORDERED: fentaNYL INJECTION 100 MCG/2 ML AMP ONE (10:17)
[2017-05-02] MEDS ORDERED: MIDAZOLAM 2 MG/2 ML (VERSED) VIAL ONE (10:18)
[2017-05-02] MEDS ORDERED: ceFAZolin 1,000 MG (ANCEF) VIAL ONE (11:00)
[2017-05-02] MEDS ORDERED: DEXTROSE 50% 50 ML (IMS) SYR ONE (11:21)
[2017-05-02] MEDS ORDERED: ISOFLURANE (FORANE) 15 ML/15 MIN INHALATION ONE (13:15)
[2017-05-02] MEDS ORDERED: SEVOFLURANE (ULTANE) 15 ML INHAL SOLN ONE (13:15)
[2017-05-02] MEDS ORDERED: morphine INJ 10 MG/ML 1ML (SYR OR VIAL) ONE (13:15)
[2017-05-02] MEDS ORDERED: GLYCOPYRROLATE 0.2 MG/ML (ROBINUL) 2 ML VIAL ONE (13:15)
[2017-05-02] MEDS ORDERED: NEOSTIGMINE 1 MG/ML 5 ML SYRINGE ONE (13:15)
[2017-05-02] MEDS ORDERED: ONDANSETRON 4 MG/2 ML (SDV) Z0FRAN ONE (13:16)
[2017-05-02] MEDS ORDERED: proPOfol 200 MG/20 ML (DIPRIVAN) VIAL IV ONE (13:16)
[2017-05-02] MEDS ORDERED: LIDOCAINE PF 2% 5 ML (XYLOCAINE) VIAL ONE (13:16)
[2017-05-02] MEDS ORDERED: ROCURONIUM 10 MG/ML 5 ML SYRINGE IV ONE (13:17)
[2017-05-02] MEDS ORDERED: DEXTROSE 50% 50 ML (IMS) SYR IV ONE (13:45)
[2017-05-02] MEDS ORDERED: ONDANSETRON 4 MG/2 ML (SDV) Z0FRAN IVP PRN (13:45)
[2017-05-02] MEDS ORDERED: fentaNYL INJECTION 100 MCG/2 ML AMP IVP PRN (13:45)
[2017-05-02] MEDS ORDERED: morphine INJ 10 MG/ML 1ML (SYR OR VIAL) IVP PRN (13:45)
--- NOTE | 2017-05-02 13:48 | Diagnostic Imaging Report ---
INDICATION: Left femur ORIF. Fluoroscopy was provided in the OR for a left hip ORIF. 185 seconds of fluoroscopy was utilized. 2 images were obtained demonstrating intramedullary wilian and compression screw transfixing the intertrochanteric fracture. Alignment is anatomic. IMPRESSION: Fluoroscopy for left hip ORIF. Dictated by: Dictated on workstation # [id number]
[2017-05-02] MEDS ORDERED: LACTATED RINGERS 1,000 ML IV SCH (13:55)
--- NOTE | 2017-05-02 13:55 | Progress Note-Post Operative ---
Post-Operative Progess Note Surgeon (s)/Tricot Knitter (s) Surgeon FAM DODSON DO Tricot Knitter Abilio Mcintosh PA-C Pre-Operative Diagnosis Displaced intertrochanteric fracture Left proximal femur Post-Operative Diagnosis same Post-Op Procedure Note Date of Procedure: May 02, 2017 Name of Procedure Performed: ORIF intertrochanteric fracture Left proximal femur Description & Findings Description and Findings: Displaced, comminuted, unstable intertrochanteric fracture Left proximal femur, poor bone quality Anesthesia Type General Estimated Blood Loss 200 mL Packing none. Specimen(s) collected/removed None FAM DODSON DO May 02, 2017 13:55
[2017-05-02] MEDS ORDERED: NS IV SCH (14:00)
[2017-05-02] MEDS ORDERED: ceFAZolin INJECTION 1,000 MG in NS (IVPB) 100 ML IV SCH (14:00)
[2017-05-02] MEDS ORDERED: CEFAZOLIN IV SCH (14:00)
[2017-05-02 16:00] VITALS: BP 133/69
--- NOTE | 2017-05-02 17:21 | Progress Note (SOAP) ---
Subjective Date Seen by Provider: May 02, 2017 Time Seen by Provider: 17:19 Subjective/Events-last exam Fwup Left hip fracture, DM--insulin requiring, Chronic coumadin therapy, Hypertension. Had surgery today. Objective Exam Vital Signs Date Time Temp Pulse Resp B/P (MAP) Pulse Ox O2 Delivery O2 Flow Rate FiO2 05/02/17 16:00 99.3 95 16 133/69 (90) 100 Nasal Cannula 2.00 05/02/17 08:00 99.6 96 20 188/96 (126) 97 Room Air 05/02/17 04:00 98.2 74 19 152/84 (106) 97 Room Air 05/02/17 00:00 99.2 82 19 149/66 (93) 92 Room Air 05/01/17 20:05 Room Air 05/01/17 20:00 98.7 91 18 149/68 (95) 91 Room Air I & O 05/02/17 07:00 Intake Total 4560 ml Output Total 1350 ml Balance 3210 ml Capillary Refill : Less Than 3 SecondsLess Than 3 Seconds General Appearance: No Apparent Distress Respiratory: Lungs Clear Cardiovascular: Regular Rate, Rhythm Gastrointestinal: normal bowel sounds, non tender, soft Extremity: No Calf Tenderness, Pedal Edema (chronic) Neurologic/Psychiatric: Alert Skin: Other (left hip dressing dry and in place) Results Lab Laboratory Tests 05/01/17 17:27: Glucometer 68L 05/01/17 18:15: Glucometer 134H 05/01/17 20:44: Glucometer 175H 05/02/17 05:09: Glucometer 82 05/02/17 06:22: White Blood Count 7.4, Red Blood Count 3.41L, Hemoglobin 9.7#L, Hematocrit 31L, Mean Corpuscular Volume 91, Mean Corpuscular Hemoglobin 28, Mean Corpuscular Hemoglobin Concent 31L, Red Cell Distribution Width 14.1, Platelet Count 236, Mean Platelet Volume 10.2, Neutrophils (%) (Auto) 64, Lymphocytes (%) (Auto) 21 , Monocytes (%) (Auto) 12, Eosinophils (%) (Auto) 2, Basophils (%) (Auto) 1, Neutrophils # (Auto) 4.7, Lymphocytes # (Auto) 1.5, Monocytes # (Auto) 0.9, Eosinophils # (Auto) 0.2, Basophils # (Auto) 0.0, Prothrombin Time 16.7H, INR Comment 1.3, Sodium Level 143, Potassium Level 4.7, Chloride Level 111H, Carbon Dioxide Level 24, Anion Gap 8, Blood Urea Nitrogen 14, Creatinine 1.14, Estimat Glomerular Filtration Rate 48, BUN/Creatinine Ratio 12, Glucose Level 75, Calcium Level 8.7, Total Bilirubin 0.5, Aspartate Amino Transf (AST/SGOT) 47H, Alanine Aminotransferase (ALT/SGPT) 30, Alkaline Phosphatase 51, Total Protein 6.2L, Albumin 3.6 05/02/17 08:09: Glucometer 75 05/02/17 11:19: Glucometer 66L 05/02/17 13:29: Glucometer 110 05/02/17 15:51: Glucometer 172H Microbiology 05/01/17 Urine Culture - Preliminary, Resulted NO GROWTH Assessment/Plan Assessment/Plan Assess & Plan/Chief Complaint 1. Left intertrochanteric hip fracture--ORIF by ortho today 2. Chronic Coumadin Therapy for Chronic DVT of LLE--restart coumadin tomorrow with lovenox bridge 3. Hypertension--back on home meds 4. Diabetes mellitus--insulin requiring--on SSI and add levemir once post-op and eating 5. GERD--resumed protonix 6. Memory Loss--recent CT scan shows microvascular changes with history of lacunar infarcts and has a family history of alzheimers so may start aricept during hospital stay Clinical Quality Measures DVT/VTE Risk/Contraindication: Risk Factor Score Per Nursin RFS Level Per Nursing on Admit: 4+=Very High SHAKEEL BRUCE DO May 02, 2017 5:21 pm
[2017-05-02 19:47] VITALS: BP 129/80
[2017-05-02] MEDS: ATORVASTATIN 10 MG (LIPITOR) TABLET PO SCH (20:51)
[2017-05-02] MEDS: ceFAZolin INJECTION 1,000 MG in NS (IVPB) 100 ML IV SCH (20:56)
[2017-05-03] VITALS (7 sets, daily range): BP systolic 119–156; BP diastolic 60–71
[2017-05-03] MEDS: NS IV 1000 ML 1,000 ML IV SCH ×3 (01:09→20:07)
[2017-05-03] MEDS: morphine INJ 4 MG/ML 1 ML (VIAL/SYRINGE) IV PRN ×4 (01:10→10:39)
[2017-05-03] MEDS: ceFAZolin INJECTION 1,000 MG in NS (IVPB) 100 ML IV SCH ×2 (05:31→12:56)
[2017-05-03] MEDS: metFORMIN 500 MG (GLUCOPHAGE) TAB PO SCH ×2 (05:34→16:27)
[2017-05-03] MEDS: CALCIUM CARB + VIT D 600 MG (CALCARB + D) TAB PO SCH ×2 (05:34→16:26)
[2017-05-03] MEDS: inSUlin (REGULAR) HUMAN 1 UNIT/0.01 ML (CHARGE PER UNIT) SC SCH ×4 (05:34→21:01)
[2017-05-03] MEDS: PANTOPRAZOLE 40 MG (PROTONIX) TAB PO SCH (05:34)
[2017-05-03 06:49] LABS: HEMOGLOBIN 8.4 G/DL (11.5-16.0); MEAN PLATELET VOLUME 10.7 FL (7.4-10.4); RED BLOOD COUNT 2.93 10^6/uL (4.35-5.85); RED CELL DISTRIBUTION WIDTH 13.7 % (10.0-14.5); WHITE BLOOD COUNT 8.7 10^3/uL (4.3-11.0)
[2017-05-03] MEDS: CARVEDILOL 12.5 MG (COREG) TABLET PO SCH ×2 (08:35→21:00)
[2017-05-03] MEDS: cefTRIAXone 1 GM/NS 100 ML IVPB IV SCH ×2 (10:28)
--- NOTE | 2017-05-03 11:37 | Physical Therapy Evaluation ---
PT Evaluation-General Medical Diagnosis Admission Date May 01, 2017 at 09:01 Medical Diagnosis: left hip fracture Onset Date: May 01, 2017 Therapy Diagnosis Therapy Diagnosis: generalized weakness/debility Height/Weight Height (Feet): 5 Height (Inches): 5.00 Weight (Pounds): 177 Weight (Ounces): 0.0 Precautions Precautions/Isolations: Fall Prevention, Standard Precautions Weight Bear Status Right Lower Extremity: Right Full Weight Bearing Left Lower Extremity: Left Weight Bearing/Tolerated Referral Physician: Lorenzo Reason for Referral: Evaluation/Treatment Medical History Pertinent Medical History: CVA, DM, HTN Additional Medical History chronic UTI Current History fall at home 04/30/17 Reviewed History: Yes Social History Home: Single Level Current Living Status: Alone Entry Into Home: Stairs With Railing PT Steps Into Home: 1 Prior/Core FIM Prior Level of Function Functional [place] Measure 0=Not Assessed/NA 4=Minimal Assistance 1=Total Assistance 5=Supervision or Setup 2=Maximal Assistance 6=Modified [place] 3=Moderate Assistance 7=Complete [place] Bed Mobility: 6 Transfers (B,C,W/C) (FIM): 6 Gait: 6 PT Evaluation-Current Subjective Patient c/o 8/10 left hip pain. Pain Numeric Pain Scale: 8 Location: Left Location Body Site: Hip Pain Description: Acute Comment: meds issued Objective Patient Orientation: Normal For Age Problem Solving: Fair Attachments: IV ROM/Strength ROM Lower Extremities right LE WNL left LE limited due to pain and patient resisting all ROM Strength Lower Extremities right knee flexion/extension 3/5; hip flexion 3/5;DF/PF 3/5 left LE NT due to patient resisting all movement, however, grossly 3/5 Integumentary/Posture Integumentary refer to nursing notes Bowel Incontinence: No Bladder Incontinence: No Posture WNL Neuromuscular (Tone, Coordination, Reflexes) diminished coordination due to pain and inability to initiate movement Sensory Vision: Wears Glasses Hearing: Functional Sensation Left Lower Extremity: Intact Transfers Functional [place] Measure 0=Not Assessed/NA 4=Minimal Assistance 1=Total Assistance 5=Supervision or Setup 2=Maximal Assistance 6=Modified [place] 3=Moderate Assistance 7=Complete [place] Transfers (B, C, W/C) (FIM): 2 Scootin Rollin Supine to/from Sit: 2 Sit to/from Stand: 4 Gait Mode of Locomotion: Walk Anticipated Mode of Locomotion: Walk Gait (FIM): 1 Distance (FIM): 1=up to 49 ft Distance: 5' x 3 Gait Level of Assist: 4 Gait Persons Needed: 1 Gait Assistive Device: FWW Comments/Gait Description Patient is unable to initiate/advance either LE due to pain and inability to weight shift to left to clear right LE Balance Sitting Static: Normal Sitting Dynamic: Normal Standing Static: Fair Standing Dynamic: Fair Assessment/Needs 67 y.o. female, will benefit from skilled PT to address functional strength and mobility to improve current LOF and to safely return to home or care facility at maximum LOF. Rehab Potential: Good PT Short Term Goals Short Term Goals Time Frame: May 11, 2017 Transfers (B,C,W/C) (FIM): 5 Gait (FIM): 2 Distance (FIM): 9=266-24 ft Gait Distance Comment: 125' Gait Level of Assist: 4 Gait Assistive Device: FWW PT Group Home Goals Hog Operator Goals PT Group Home Goals Time Frame: May 18, 2017 Transfers (B,C,W/C) (FIM): 6 Gait (FIM): 6 Gait distance (FIM): 3=150 ft Distance: 200' Gait Level of Assist: 6 Gait Assistive Device: FWW PT Plan Problem List Problem List: Activity Tolerance, Functional Strength, Balance, Gait, Transfer , Bed Mobility, ROM Treatment/Plan Treatment Plan: Continue Plan of Care Treatment Plan: Bed Mobility, Education, Functional Activity Issac, Functional Strength, Gait, Safety, Therapeutic Exercise, Transfers Treatment Duration: May 18, 2017 Frequency: 11 times per week Estimated Hrs Per Day: .5 hour per day Patient and/or Family Agrees t: Yes Safety Risks/Education Patient Education: Gait Training Teaching Recipient: Patient Teaching Methods: Demonstration, Discussion Response to Teaching: Verbalize Understanding Discharge Recommendations Therapy D/C Recommendations: Acute Rehab, Senior Living (TCU/NH) Time/GCodes Time In: 1010 Time Out: 1030 Total Billed Treatment Time: 20 [facility] CECILIA DE OLIVEIRA PT May 03, 2017 11:36
--- NOTE | 2017-05-03 12:39 | Progress Note (SOAP) ---
Subjective Date Seen by Provider: May 03, 2017 Time Seen by Provider: 12:36 Subjective/Events-last exam Fwup Left hip fracture, DM--insulin requiring, Chronic coumadin therapy, Hypertension. Some difficulty with ambulation today--states hard to tell leg to move. Pain well controlled. Objective Exam Vital Signs Date Time Temp Pulse Resp B/P (MAP) Pulse Ox O2 Delivery O2 Flow Rate FiO2 05/03/17 08:00 100.6 91 20 156/67 (96) 92 Room Air 05/03/17 04:00 98.4 87 18 138/63 (88) 94 Room Air 05/03/17 00:00 99.2 85 16 121/71 (88) 98 Nasal Cannula 3.00 05/02/17 20:45 Room Air 05/02/17 19:47 99.2 83 18 129/80 (96) 99 Nasal Cannula 3.00 05/02/17 19:32 Nasal Cannula 2.00 05/02/17 16:00 99.3 95 16 133/69 (90) 100 Nasal Cannula 2.00 I & O 05/03/17 07:00 Intake Total 805 ml Output Total 800 ml Balance 5 ml Capillary Refill : Less Than 3 SecondsLess Than 3 Seconds General Appearance: No Apparent Distress Respiratory: Lungs Clear Cardiovascular: Regular Rate, Rhythm Gastrointestinal: normal bowel sounds, non tender, soft Extremity: Non Tender, No Calf Tenderness, Pedal Edema (chronic), Other (SCDs in place) Neurologic/Psychiatric: Alert, Oriented x3 Skin: Warm/Dry (left hip dressing dry) Results Lab Laboratory Tests 05/02/17 13:29: Glucometer 110 05/02/17 15:51: Glucometer 172H 05/02/17 20:48: Glucometer 250H 05/03/17 01:32: Glucometer 124H 05/03/17 05:33: Glucometer 132H 05/03/17 05:55: White Blood Count 8.7, Red Blood Count 2.93L, Hemoglobin 8.4L, Hematocrit 27L, Mean Corpuscular Volume 92, Mean Corpuscular Hemoglobin 29, Mean Corpuscular Hemoglobin Concent 31L, Red Cell Distribution Width 13.7, Platelet Count 212, Mean Platelet Volume 10.7H 05/03/17 11:03: Glucometer 214H Microbiology 05/01/17 Urine Culture - Final, Complete NO GROWTH Assessment/Plan Assessment/Plan Assess & Plan/Chief Complaint 1. Left intertrochanteric hip fracture--S/P ORIF, pain control, PT started, may need rehab 2. 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 Hypertension--back on home meds 4. Diabetes mellitus--insulin requiring--on SSI and add levemir 5. GERD--resumed protonix 6. Memory Loss--recent CT scan shows microvascular changes with history of lacunar infarcts and has a family history of alzheimers so may start aricept during hospital stay Clinical Quality Measures DVT/VTE Risk/Contraindication: Risk Factor Score Per Nursin RFS Level Per Nursing on Admit: 4+=Very High SHAKEEL BRUCE DO May 03, 2017 12:39
[2017-05-03] MEDS ORDERED: SENNA W/DOCUSATE (SENOKOT S) TABLET PO ONE (12:45)
[2017-05-03] MEDS: ENOXAPARIN 40 MG/0.4 ML (LOVENOX) SYR SC SCH (13:00)
--- NOTE | 2017-05-03 15:33 | Physical Therapy Daily Note ---
PT Daily Note-Current Subjective Patient is sitting EOB with OT present. Agrees to PT. Pain Numeric Pain Scale: 10-Worst Possible Pain Location: Left Location Body Site: Hip Pain Description: Acute Mental Status Patient Orientation: Normal For Age Attachments: IV Transfers Functional [place] Measure 0=Not Assessed/NA 4=Minimal Assistance 1=Total Assistance 5=Supervision or Setup 2=Maximal Assistance 6=Modified [place] 3=Moderate Assistance 7=Complete IndependenceIRFPAI Quality Coding Scale 6 Independent with activity with or without an assistive device 5 Patient requires set up or clean up by helper. Patient completes activity by themselves 4 Supervision or touching assist (CGA). [place] provide cues , steadying assist 3 The helper provides less than half the effort to complete the activity 2 The helper provides more than half the effort to complete the activity 1 Dependent. The helper does all the effort to complete an activity 7 Patient refused to complete or attempt activity 9 The patient did not perform the activity before the current illness or injury 88 Not attempted due to Medical conditions or safety concerns Transfers (B, C, W/C) (FIM): 4 Scootin Sit to/from Stand: 4 Bed to/from Chair: 4 Weight Bearing Right Lower Extremity: Right Full Weight Bearing Left Lower Extremity: Left Weight Bearing/Tolerated Gait Training Gait (FIM): 1 Distance (FIM): 1=up to 49 ft Distance: 25' Gait Level of Assist: 4 Gait Assistive Device: FWW very slow and antalgic Assessment Patient is up in recliner with needs met. Family present. Patient is making slow progress. PT will increase activity as tolerated by patient. PT Short Term Goals Short Term Goals Time Frame: May 11, 2017 Transfers (B,C,W/C) (FIM): 5 Gait (FIM): 2 Distance (FIM): 8=398-95 ft Gait Distance Comment: 125' Gait Level of Assist: 4 Gait Assistive Device: FWW PT Nursing Coordinator Goals Longterm Goals PT Nursing Coordinator Goals Time Frame: May 18, 2017 Transfers (B,C,W/C) (FIM): 6 Gait (FIM): 6 Gait distance (FIM): 3=150 ft Distance: 200' Gait Level of Assist: 6 Gait Assistive Device: FWW PT Plan Treatment/Plan Treatment Plan: Continue Plan of Care Treatment Plan: Bed Mobility, Education, Functional Activity Issac, Functional Strength, Gait, Safety, Therapeutic Exercise, Transfers Treatment Duration: May 18, 2017 Frequency: 11 times per week Estimated Hrs Per Day: .5 hour per day Patient and/or Family Agrees t: Yes Time/GCodes Time In: 1405 Time Out: 1422 Total Billed Treatment Time: 17 Total Billed Treatment 1 visit GT 17 min CECILIA DE OLIVEIRA PT May 03, 2017 15:33
--- NOTE | 2017-05-03 15:40 | Occupational Therapy Eval ---
OT Evaluation-General/PLF Medical Diagnosis Admission Date May 01, 2017 at 09:01 Medical Diagnosis: left hip fracture Onset Date: May 01, 2017 Therapy Diagnosis Therapy Diagnosis: Weakness, Decreased ADL skills Height/Weight Height (Feet): 5 Height (Inches): 5.00 Weight (Pounds): 177 Weight (Ounces): 0.0 Precautions Precautions/Isolations: Fall Prevention, Standard Precautions Safety Interventions: None Weight Bear Status Weight Bearing Restriction: Weight Bearing/Tolerated Location Restriction: L LEW Referral Physician: Lorenzo Referral Reason: Activity Tolerance, Self Care, Evaluation/Treatment, Strengthening/ROM Medical History Pertinent Medical History: CVA, DM, HTN Additional Medical History chronic UTI, Cervical CA removed Current History Pt. lives in [facility]. Cleans and receives meals on wheels. Lives in [facility]. Has supportive family. Would like to come to rehab. Reviewed History: Yes Social History Home: Single Level Current Living Status: Alone Entry Into Home: Stairs With Railing Steps Into Home: 1 ADL-Prior Level of Function ADL PLOF Comments pt. states that she was independent with basic self care skills prior to hospitalization. DME/Equipment: Bath Chair, Shower Drive Self: No OT Current Status Subjective Pt. does not report pain level but does grimace with movement. Has received pain meds. Appearance Pt. in bed. Pt. pleasant and agrees to work with OT. Pt. states that she got cleaned up last night, and declines a shower now. States that she will do one "maybe tomorrow." Mental Status/Objective Patient Orientation: Person, Place Attachments: IV Current Glasses/Contacts: Yes Upper Extremity ROM WFL Upper Extremity Strength 3+/5 bilateral UE strength. ADL-Treatment Functional [place] Measure 0=Not Assessed/NA 4=Minimal Assistance 1=Total Assistance 5=Supervision or Setup 2=Maximal Assistance 6=Modified [place] 3=Moderate Assistance 7=Complete IndependenceIRFPAI Quality Coding Scale 6 Independent with activity with or without an assistive device 5 Patient requires set up or clean up by helper. Patient completes activity by themselves 4 Supervision or touching assist (CGA). [place] provide cues , steadying assist 3 The helper provides less than half the effort to complete the activity 2 The helper provides more than half the effort to complete the activity 1 Dependent. The helper does all the effort to complete an activity 7 Patient refused to complete or attempt activity 9 The patient did not perform the activity before the current illness or injury 88 Not attempted due to Medical conditions or safety concerns Lower Body Dressing (FIM): 1 (Pt. is unable to reach her feet to doff/don slipper socks.) Transfers (B, C, W/C) (FIM): 2 (Pt. requires max assist for supine-sit. States , "my legs feel like lead." Pt. requires mod assist for sit-stand.) Other Treatments Pt. and OT sit on side of bed and practice breathing techniques, upright posture , and leg kicks. Pt. has limited movement in left LE due to swelling and fatigue. Pt. and OT talked about pt. coming to rehab for increased strength and ADL skills. Pt. agreeable to this. All needs met when PT came into room to assist pt. Education OT Patient Education: Correct positioning, Exercise program, Modified ADL techniques, Progress toward Goal/Update tx plan, Purpose of tx/functional activities, Reviewed precautions, Rehab process, Transfer techniques Teaching Recipient: Patient Teaching Methods: Demonstration, Discussion Response to Teaching: Verbalize Understanding, Return Demonstration OT Short Term Goals Short Term Goals Time Frame: May 10, 2017 Eating(FIM): 5 Grooming(FIM): 5 Bathing(FIM): 3 Upper Body Dressing(FIM): 4 Lower Body Dressing(FIM): 3 Toileting(FIM): 3 Transfers (B,C,W/C) (FIM): 4 Toilet/Commode Transfer(FIM): 4 Additional Short Term Goals: 1-Demonstrate ADL Tasks, 2-Verbalize Understanding , 3-ImproveStrength/Issac 1=Demonstrate adherence to instructed precautions during ADL tasks. 2=Patient will verbalize/demonstrate understanding of assistive devices/ modifications for ADL. 3=Patient will improve strength/tolerance for activity to enable patient to perform ADL's. OT Group Home Goals Group Home Goals Time Frame: May 17, 2017 Eating (FIM): 6 Grooming(FIM): 6 Bathing(FIM): 5 Upper Body Dressing(FIM): 5 Lower Body Dressing(FIM): 5 Toileting(FIM): 5 Transfers (B,C,W/C) (FIM): 5 Toilet/Commode Transfer(FIM): 5 Shower Transfer(FIM): 5 Additional Goals: 1-Demonstrate ADL Tasks, 2-Verbalize Understanding, 3- ImproveStrength/Issac 1=Demonstrate adherence to instructed precautions during ADL tasks. 2=Patient will verbalize/demonstrate understanding of assistive devices/ modifications for ADL. 3=Patient will improve strength/tolerance for activity to enable patient to perform ADL's. OT Education/Plan Problem List/Assessment Assessment: Decreased Activ Tolerance, Dependent Transfers, Impaired Bed Mobility, Impaired Funct Balance, Impaired I ADL's, Impaired Self-Care Skills Discharge Recommendations Plan/Recommendations: Continue POC Therapy D/C Recommendations: Acute Rehab Equpiment Recommendations-D/C: Hip Kit Target Placement Acute rehab Treatment Plan/Plan of Care Treatment,Training & Education: Yes Patient would benefit from OT for education, treatment and training to promote independence in ADL's, mobility, safety and/or upper extremity function for ADL' s. Plan of Care: ADL Retraining, Caregiver Training, Functional Mobility, UE Funct Exercise/Act Treatment Duration: May 17, 2017 Frequency: 5 times per week Estimated Hrs Per Day: .5 hour per day Agreement: Yes Rehab Potential: Good Time/GCodes Start Time: 13:45 Stop Time: 14:05 Total Time Billed (hr/min): 20 Billed Treatment Time 1, NASEEM TAVAREZ OT May 03, 2017 15:40
[2017-05-03] MEDS: warFARin 5 MG (COUMADIN) TAB PO SCH (17:40)
--- NOTE | 2017-05-03 18:05 | Progress Note (SOAP) ---
Subjective Date Seen by Provider: May 03, 2017 Time Seen by Provider: 16:20 Subjective/Events-last exam Pt AJ, doing well, pain controlled, no complaints. Objective Exam Vital Signs Date Time Temp Pulse Resp B/P (MAP) Pulse Ox O2 Delivery O2 Flow Rate FiO2 05/03/17 16:50 99.7 81 17 152/66 (94) 94 Room Air 05/03/17 12:00 100.3 79 18 119/60 (79) 95 Room Air 05/03/17 08:00 100.6 91 20 156/67 (96) 92 Room Air 05/03/17 04:00 98.4 87 18 138/63 (88) 94 Room Air 05/03/17 00:00 99.2 85 16 121/71 (88) 98 Nasal Cannula 3.00 05/02/17 20:45 Room Air 05/02/17 19:47 99.2 83 18 129/80 (96) 99 Nasal Cannula 3.00 05/02/17 19:32 Nasal Cannula 2.00 I & O 05/03/17 07:00 Intake Total 805 ml Output Total 800 ml Balance 5 ml Capillary Refill : Less Than 3 SecondsLess Than 3 Seconds General Appearance: No Apparent Distress, WD/WN HEENT: PERRL/EOMI Respiratory: No Accessory Muscle Use, No Respiratory Distress Cardiovascular: Regular Rate, Rhythm, Normal Peripheral Pulses Peripheral Pulses: 2+ Dorsalis Pedis (R), 2+ Left Dors-Pedis (L) Gastrointestinal: non tender, soft Extremity: Normal Capillary Refill, No Calf Tenderness, Other (LLE: dressings with mild spotting, all compartments soft/compressible, motor/sensation grossly intact, foot well perfused.) Neurologic/Psychiatric: Alert, Oriented x3, No Motor/Sensory Deficits, Normal Mood/Affect, engagement manager II-XII Norm as Tested Skin: Normal Color, Warm/Dry Results Lab Laboratory Tests 05/02/17 20:48: Glucometer 250H 05/03/17 01:32: Glucometer 124H 05/03/17 05:33: Glucometer 132H 05/03/17 05:55: White Blood Count 8.7, Red Blood Count 2.93L, Hemoglobin 8.4L, Hematocrit 27L, Mean Corpuscular Volume 92, Mean Corpuscular Hemoglobin 29, Mean Corpuscular Hemoglobin Concent 31L, Red Cell Distribution Width 13.7, Platelet Count 212, Mean Platelet Volume 10.7H 05/03/17 11:03: Glucometer 214H 05/03/17 13:41: Lab Scanned Report Transfusion Reaction Form 05/03/17 16:11: Glucometer 227H Microbiology 05/01/17 Urine Culture - Final, Complete NO GROWTH Procedures ORIF Intertrochanteric fracture Left proximal femur Assessment/Plan Assessment/Plan Assess & Plan/Chief Complaint S/P ORIF Intertrochanteric fracture Left proximal femur, POD #1 Doing well, orthopedically stable Continue to mobilize OOB with PT/OT, WBAT LLE Current pain control regimen Bowel regimen Lovenox bridge/coumadin for VTE prophylaxis SCDs/ISB Acute post-op blood loss anemia: pt appears asymptomatic at this time, will continue to monitor. D/C planning: pt will likey need rehab at time of d/c; case management to evaluate; anticipate pt to be ready for d/c in 2-3 days. Clinical Quality Measures Admission Status Admission Dx Intertrochanteric fracture Left proximal femur. DVT/VTE Risk/Contraindication: Risk Factor Score Per Nursin RFS Level Per Nursing on Admit: 4+=Very High FAM DODSON DO May 03, 2017 18:04
[2017-05-03] MEDS: BACLOFEN 10 MG (LIORESAL) TAB PO PRN (18:14)
[2017-05-03] MEDS: MICONAZOLE 2% POWDER (DESENEX AF) 90 GM TOP SCH (19:03)
[2017-05-03] MEDS: SENNA W/DOCUSATE (SENOKOT S) TABLET PO SCH (21:00)
[2017-05-03] MEDS: ATORVASTATIN 10 MG (LIPITOR) TABLET PO SCH (21:00)
[2017-05-03] MEDS: inSUlin DETERMIR 1 UNIT/0.01 ML (LEVEMIR) CHARGE PER UNIT SQ SCH (21:01)
[2017-05-04] VITALS (10 sets, daily range): BP systolic 103–186; BP diastolic 55–84
[2017-05-04] MEDS: BACLOFEN 10 MG (LIORESAL) TAB PO PRN (02:16)
[2017-05-04] MEDS: inSUlin (REGULAR) HUMAN 1 UNIT/0.01 ML (CHARGE PER UNIT) SC SCH ×4 (05:57→21:13)
[2017-05-04] MEDS: metFORMIN 500 MG (GLUCOPHAGE) TAB PO SCH ×2 (06:14→17:09)
[2017-05-04] MEDS: PANTOPRAZOLE 40 MG (PROTONIX) TAB PO SCH (06:14)
[2017-05-04] MEDS: CALCIUM CARB + VIT D 600 MG (CALCARB + D) TAB PO SCH ×2 (06:14→17:09)
[2017-05-04 06:47] LABS: BASOPHILS % (AUTO) 0 % (0-10); EOSINOPHILS # (AUTO) 0.1 10^3/uL (0.0-0.3); EOSINOPHILS % (AUTO) 1 % (0-10); HEMATOCRIT 23 % (35-52); HEMOGLOBIN 7.2 G/DL (11.5-16.0); LYMPHOCYTES # (AUTO) 1.1 X 10^3 (1.0-4.0); LYMPHOCYTES % (AUTO) 14 % (12-44); MEAN CORPUSCULAR HEMOGLOBIN 29 PG (25-34); MEAN CORPUSCULAR HGB CONC 32 G/DL (32-36); MEAN CORPUSCULAR VOLUME 91 FL (80-99); MEAN PLATELET VOLUME 10.9 FL (7.4-10.4); MONOCYTES # (AUTO) 0.8 X 10^3 (0.0-1.0); MONOCYTES % (AUTO) 10 % (0-12); NEUTROPHILS # (AUTO) 5.9 X 10^3 (1.8-7.8); NEUTROPHILS % (AUTO) 74 % (42-75); PLATELET COUNT 181 10^3/uL (130-400); RED BLOOD COUNT 2.49 10^6/uL (4.35-5.85); RED CELL DISTRIBUTION WIDTH 13.5 % (10.0-14.5)
[2017-05-04 06:54] LABS: INR 1.1 (0.8-1.4); PROTHROMBIN TIME PATIENT 14.4 SEC (12.2-14.7)
[2017-05-04 07:03] LABS: ALBUMIN 2.9 GM/DL (3.2-4.5); BILIRUBIN,TOTAL 0.4 MG/DL (0.1-1.0); CALCIUM 8.3 MG/DL (8.5-10.1); CREATININE SERUM 1.17 MG/DL (0.60-1.30); POTASSIUM 4.3 MMOL/L (3.6-5.0); TOTAL PROTEIN 5.3 GM/DL (6.4-8.2)
[2017-05-04] MEDS: morphine INJ 4 MG/ML 1 ML (VIAL/SYRINGE) IV PRN (07:03)
[2017-05-04] MEDS: SENNA W/DOCUSATE (SENOKOT S) TABLET PO SCH ×2 (08:03→20:22)
[2017-05-04] MEDS: CARVEDILOL 12.5 MG (COREG) TABLET PO SCH ×2 (08:04→20:22)
[2017-05-04] MEDS: MICONAZOLE 2% POWDER (DESENEX AF) 90 GM TOP SCH ×2 (08:05→20:23)
--- NOTE | 2017-05-04 11:33 | Physical Therapy Daily Note ---
PT Daily Note-Current Subjective Patient agrees to PT. Pain Numeric Pain Scale: 9 Location: Left Location Body Site: Hip Pain Description: Ache, Acute Mental Status Patient Orientation: Normal For Age Transfers Functional Armstrong Measure 0=Not Assessed/NA 4=Minimal Assistance 1=Total Assistance 5=Supervision or Setup 2=Maximal Assistance 6=Modified [place] 3=Moderate Assistance 7=Complete IndependenceIRFPAI Quality Coding Scale 6 Independent with activity with or without an assistive device 5 Patient requires set up or clean up by helper. Patient completes activity by themselves 4 Supervision or touching assist (CGA). [place] provide cues , steadying assist 3 The helper provides less than half the effort to complete the activity 2 The helper provides more than half the effort to complete the activity 1 Dependent. The helper does all the effort to complete an activity 7 Patient refused to complete or attempt activity 9 The patient did not perform the activity before the current illness or injury 88 Not attempted due to Medical conditions or safety concerns Transfers (B, C, W/C) (FIM): 4 Scootin Supine to/from Sit: 4 Sit to/from Stand: 4 Bed to/from Chair: 4 Weight Bearing Right Lower Extremity: Right Full Weight Bearing Left Lower Extremity: Left Weight Bearing/Tolerated Gait Training Gait (FIM): 1 Distance (FIM): 1=up to 49 ft Distance: 45' Gait Level of Assist: 4 Gait Persons Needed: 1 Gait Assistive Device: FWW very slow, antalgic gait sequence Exercises Supine Ex: Ankle pumps, Quad Set, Heel Slides Supine Reps: 15 (AAROM HS patient is very resistive) Seated Therapy Exercises: Long arc quads Seated Reps: 15 Assessment Patient requires time to complete all functional tasks, however, is improving with treatment plan. Patient will transfer to [facility] on Sunday. PT Short Term Goals Short Term Goals Time Frame: May 11, 2017 Transfers (B,C,W/C) (FIM): 4 Gait (FIM): 2 Distance (FIM): 6=268-73 ft Gait Distance Comment: 125' Gait Level of Assist: 4 Gait Assistive Device: FWW PT Mcc Goals Mcc Goals PT Supervisor Residential Goals Time Frame: May 18, 2017 Transfers (B,C,W/C) (FIM): 6 Gait (FIM): 6 Gait distance (FIM): 3=150 ft Distance: 200' Gait Level of Assist: 6 Gait Assistive Device: FWW PT Plan Treatment/Plan Treatment Plan: Continue Plan of Care Treatment Plan: Bed Mobility, Education, Functional Activity Issac, Functional Strength, Gait, Safety, Therapeutic Exercise, Transfers Treatment Duration: May 18, 2017 Frequency: 11 times per week Estimated Hrs Per Day: .5 hour per day Patient and/or Family Agrees t: Yes Time/GCodes Time In: 955 Time Out: 1018 Total Billed Treatment Time: 23 Total Billed Treatment 1 visit EX 8 min GT 15 min CECILIA DE OLIVEIRA PT May 04, 2017 11:32
[2017-05-04] MEDS: ENOXAPARIN 40 MG/0.4 ML (LOVENOX) SYR SC SCH (11:59)
[2017-05-04] MEDS: cefTRIAXone 1 GM/NS 100 ML IVPB IV SCH ×2 (12:00)
--- NOTE | 2017-05-04 12:55 | Occupational Ther Daily Note ---
OT Current Status-Daily Note Subjective Pt agreeable to treatment. Reports 5/10 pain in left hip Mental Status/Objective Functional [place] Measure 0=Not Assessed/NA 4=Minimal Assistance 1=Total Assistance 5=Supervision or Setup 2=Maximal Assistance 6=Modified [place] 3=Moderate Assistance 7=Complete [place] ADL-Treatment Pt being assisted to BSC when therapist arrives. Pt requires assist for toileting hygiene. Sit to stand from BSC with moderate assistance. Transfer to EOB with minimal assistance using FWW. Pt moves slowly and requires cues for walker use and safety. Pt instructed in use of adaptive equipment for LE dressing. Pt doffed right sock with SBA using dressing stick. Doffed left sock with minimal assistance using dressing stick. Pt donned socks with minimal assistance using sock aid. Increased time for ADLs and mobility. Sit to supine with assist for bilateral LE. Pt requires assist to scoot to HOB. Pt resting in bed with needs met after session. OT Short Term Goals Short Term Goals Time Frame: May 10, 2017 Eating(FIM): 5 Grooming(FIM): 5 Bathing(FIM): 3 Upper Body Dressing(FIM): 4 Lower Body Dressing(FIM): 3 Toileting(FIM): 3 Transfers (B,C,W/C) (FIM): 4 Toilet/Commode Transfer(FIM): 4 Additional Short Term Goals: 1-Demonstrate ADL Tasks, 2-Verbalize Understanding , 3-ImproveStrength/Issac 1=Demonstrate adherence to instructed precautions during ADL tasks. 2=Patient will verbalize/demonstrate understanding of assistive devices/ modifications for ADL. 3=Patient will improve strength/tolerance for activity to enable patient to perform ADL's. OT Production Packager Goals Production Packager Goals Time Frame: May 17, 2017 Eating (FIM): 6 Grooming(FIM): 6 Bathing(FIM): 5 Upper Body Dressing(FIM): 5 Lower Body Dressing(FIM): 5 Toileting(FIM): 5 Transfers (B,C,W/C) (FIM): 5 Toilet/Commode Transfer(FIM): 5 Shower Transfer(FIM): 5 Additional Goals: 1-Demonstrate ADL Tasks, 2-Verbalize Understanding, 3- ImproveStrength/Issac 1=Demonstrate adherence to instructed precautions during ADL tasks. 2=Patient will verbalize/demonstrate understanding of assistive devices/ modifications for ADL. 3=Patient will improve strength/tolerance for activity to enable patient to perform ADL's. OT Education/Plan Discharge Recommendations Plan/Recommendations: Continue POC Treatment Plan/Plan of Care Patient would benefit from OT for education, treatment and training to promote independence in ADL's, mobility, safety and/or upper extremity function for ADL' s. Plan of Care: ADL Retraining, Caregiver Training, Functional Mobility, UE Funct Exercise/Act Treatment Duration: May 17, 2017 Frequency: 5 times per week Estimated Hrs Per Day: .5 hour per day Agreement: Yes Rehab Potential: Good Time/GCodes Start Time: 11:11 Stop Time: 11:35 Total Time Billed (hr/min): 24 Billed Treatment Time 1 visit, ADLx2(24minutes) BRIGHT SANTIAGO OT May 04, 2017 12:55
--- NOTE | 2017-05-04 13:17 | Progress Note (SOAP) ---
Subjective Date Seen by Provider: May 04, 2017 Time Seen by Provider: 11:15 Subjective/Events-last exam Fwup Left hip fracture, DM--insulin requiring, Chronic coumadin therapy, Hypertension. Better control of left leg and pain well controlled. No BM yet. Objective Exam Vital Signs Date Time Temp Pulse Resp B/P (MAP) Pulse Ox O2 Delivery O2 Flow Rate FiO2 05/04/17 09:00 91 Room Air 05/04/17 08:00 97.1 80 20 140/66 (90) 95 Room Air 05/04/17 00:00 99.8 87 20 150/67 (94) 91 Room Air 05/03/17 22:06 99.7 104 20 146/66 (92) 97 Room Air 05/03/17 21:00 Room Air 05/03/17 20:12 100.7 90 20 148/66 (93) 97 Room Air 05/03/17 16:50 99.7 81 17 152/66 (94) 94 Room Air I & O 05/04/17 07:00 Intake Total 2640 ml Output Total 570 ml Balance 2070 ml Capillary Refill : Less Than 3 SecondsLess Than 3 Seconds General Appearance: No Apparent Distress Respiratory: Lungs Clear Cardiovascular: Regular Rate, Rhythm Gastrointestinal: normal bowel sounds, non tender, soft Extremity: Non Tender, No Calf Tenderness, Pedal Edema (chronic) Neurologic/Psychiatric: Alert, Oriented x3 Skin: Warm/Dry, Other (left hip with dry dressing in place) Results Lab Laboratory Tests 05/03/17 13:41: Lab Scanned Report Transfusion Reaction Form 05/03/17 16:11: Glucometer 227H 05/03/17 20:14: Glucometer 259H 05/03/17 22:06: Glucometer 267H 05/04/17 05:19: Glucometer 123H 05/04/17 05:49: White Blood Count 8.0, Red Blood Count 2.49L, Hemoglobin 7.2L, Hematocrit 23L, Mean Corpuscular Volume 91, Mean Corpuscular Hemoglobin 29, Mean Corpuscular Hemoglobin Concent 32, Red Cell Distribution Width 13.5, Platelet Count 181, Mean Platelet Volume 10.9H, Neutrophils (%) (Auto) 74, Lymphocytes (%) (Auto) 14 , Monocytes (%) (Auto) 10, Eosinophils (%) (Auto) 1, Basophils (%) (Auto) 0, Neutrophils # (Auto) 5.9, Lymphocytes # (Auto) 1.1, Monocytes # (Auto) 0.8, Eosinophils # (Auto) 0.1, Basophils # (Auto) 0.0, Prothrombin Time 14.4, INR Comment 1.1, Sodium Level 138, Potassium Level 4.3, Chloride Level 109H, Carbon Dioxide Level 23, Anion Gap 6, Blood Urea Nitrogen 14, Creatinine 1.17, Estimat Glomerular Filtration Rate 46, BUN/Creatinine Ratio 12, Glucose Level 115H, Calcium Level 8.3L, Total Bilirubin 0.4, Aspartate Amino Transf (AST/SGOT) 51H, Alanine Aminotransferase (ALT/SGPT) 18, Alkaline Phosphatase 59, Total Protein 5.3L, Albumin 2.9L 05/04/17 11:04: Glucometer 164H Microbiology 05/01/17 Urine Culture - Final, Complete NO GROWTH Assessment/Plan Assessment/Plan Assess & Plan/Chief Complaint 1. Left intertrochanteric hip fracture--S/P ORIF, pain control, PT/OT, rehab on Sunday 2. Chronic Coumadin Therapy for Chronic DVT of LLE--restarted coumadin with lovenox bridge 3. Hypertension--back on home meds 4. Diabetes mellitus--insulin requiring--on SSI and added levemir 5. GERD--resumed protonix 6. Memory Loss--recent CT scan shows microvascular changes with history of lacunar infarcts and has a family history of alzheimers so may start aricept during hospital stay 7. Acute on Chronic Anemia from recent surgery--transfuse 2u pRBCs and recheck H/H in AM Clinical Quality Measures DVT/VTE Risk/Contraindication: Risk Factor Score Per Nursin RFS Level Per Nursing on Admit: 4+=Very High SHAKEEL BRUCE DO May 04, 2017 1:17 pm
[2017-05-04] MEDS ORDERED: MILK OF MAGNESIA 400 MG/5 ML 30 ML UDC PO NR (13:30)
[2017-05-04] MEDS ORDERED: MILK OF MAGNESIA 400 MG/5 ML 30 ML UDC PO PRN (13:30)
--- NOTE | 2017-05-04 13:40 | Physical Therapy Progress Note ---
Therapy Progress Note No PT p.m. treatment secondary to critical Hgb and receiving PRBC. PT to resume in a.m. RN agrees. 1 visit CECILIA DE OLIVEIRA PT May 04, 2017 13:40
[2017-05-04] MEDS: NS IV 1000 ML 1,000 ML IV SCH (14:31)
[2017-05-04] MEDS: warFARin 5 MG (COUMADIN) TAB PO SCH (17:09)
--- NOTE | 2017-05-04 17:49 | Progress Note (SOAP) ---
Subjective Date Seen by Provider: May 04, 2017 Time Seen by Provider: 17:46 Subjective/Events-last exam Pt AJ, doing well, pain controlled, doing well in PT/OT, no complaints today. Objective Exam Vital Signs Date Time Temp Pulse Resp B/P (MAP) Pulse Ox O2 Delivery O2 Flow Rate FiO2 05/04/17 16:36 99.7 86 138/78 05/04/17 16:21 99.0 81 129/79 05/04/17 16:16 99.0 81 129/79 05/04/17 16:01 100.1 80 20 103/55 (71) 94 Room Air 05/04/17 13:41 98.7 81 106/66 05/04/17 13:26 98.5 78 115/56 05/04/17 09:00 91 Room Air 05/04/17 08:00 97.1 80 20 140/66 (90) 95 Room Air 05/04/17 00:00 99.8 87 20 150/67 (94) 91 Room Air 05/03/17 22:06 99.7 104 20 146/66 (92) 97 Room Air 05/03/17 21:00 Room Air 05/03/17 20:12 100.7 90 20 148/66 (93) 97 Room Air I & O 05/04/17 07:00 Intake Total 2640 ml Output Total 570 ml Balance 2070 ml Capillary Refill : Less Than 3 SecondsLess Than 3 Seconds General Appearance: No Apparent Distress, WD/WN HEENT: PERRL/EOMI Respiratory: No Accessory Muscle Use, No Respiratory Distress Cardiovascular: Regular Rate, Rhythm, Normal Peripheral Pulses Peripheral Pulses: 2+ Dorsalis Pedis (R), 2+ Left Dors-Pedis (L) Gastrointestinal: non tender, soft Extremity: Other (LLE: dressings c/d/i, all compartments soft/compressible, motor/sensation grossly intact, foot well perfused.) Neurologic/Psychiatric: Alert, Oriented x3, No Motor/Sensory Deficits, Normal Mood/Affect Skin: Normal Color, Warm/Dry Results Lab Laboratory Tests 05/03/17 20:14: Glucometer 259H 05/03/17 22:06: Glucometer 267H 05/04/17 05:19: Glucometer 123H 05/04/17 05:49: White Blood Count 8.0, Red Blood Count 2.49L, Hemoglobin 7.2L, Hematocrit 23L, Mean Corpuscular Volume 91, Mean Corpuscular Hemoglobin 29, Mean Corpuscular Hemoglobin Concent 32, Red Cell Distribution Width 13.5, Platelet Count 181, Mean Platelet Volume 10.9H, Neutrophils (%) (Auto) 74, Lymphocytes (%) (Auto) 14 , Monocytes (%) (Auto) 10, Eosinophils (%) (Auto) 1, Basophils (%) (Auto) 0, Neutrophils # (Auto) 5.9, Lymphocytes # (Auto) 1.1, Monocytes # (Auto) 0.8, Eosinophils # (Auto) 0.1, Basophils # (Auto) 0.0, Prothrombin Time 14.4, INR Comment 1.1, Sodium Level 138, Potassium Level 4.3, Chloride Level 109H, Carbon Dioxide Level 23, Anion Gap 6, Blood Urea Nitrogen 14, Creatinine 1.17, Estimat Glomerular Filtration Rate 46, BUN/Creatinine Ratio 12, Glucose Level 115H, Calcium Level 8.3L, Total Bilirubin 0.4, Aspartate Amino Transf (AST/SGOT) 51H, Alanine Aminotransferase (ALT/SGPT) 18, Alkaline Phosphatase 59, Total Protein 5.3L, Albumin 2.9L 05/04/17 11:04: Glucometer 164H 05/04/17 15:59: Glucometer 321H Microbiology 05/01/17 Urine Culture - Final, Complete NO GROWTH Assessment/Plan Assessment/Plan Assess & Plan/Chief Complaint S/P ORIF Intertrochanteric fracture Left proximal femur, POD #2 Doing well, orthopedically stable Continue to mobilize OOB with PT/OT, WBAT LLE Current pain control regimen Bowel regimen Lovenox bridge/coumadin for VTE prophylaxis per medicine SCDs/ISB Acute post-op blood loss anemia: Hb dropped to 7.2 and patient appears symptomatic, agree with transfusion of prbcs. D/C planning: plan to d/c to acute rehab on Sunday. Instructions given Questions answered. Clinical Quality Measures Admission Status Admission Dx Intertrochanteric fracture Left proximal femur. DVT/VTE Risk/Contraindication: Risk Factor Score Per Nursin RFS Level Per Nursing on Admit: 4+=Very High FAM DODSON DO May 04, 2017 17:49
--- NOTE | 2017-05-04 17:52 | Discharge Inst-Surgical ---
Discharge Inst-Surgical Depart Medication/Instructions New, Converted or Re-Newed RX: RX on Chart Consults/Follow Up Goal/Follow Up Appt.: Please follow up with Dr. Ventura at [address], [place] in 2 weeks; please call the office to confirm your appointment. Activity Activity as Tolerated: Yes You may continue to bear weight as tolerated on your left leg; continue to use the walker for ambulation assistance. Walking Assistive Device: Walker Activity Instructions: Avoid Pulling & Pushing, Avoid Stress to Incision Do Not Lift Over _ Pounds: 10 Driving Instructions: No Driving/Refer to Dr. Beebe Discharge Diet: No Restrictions Skin/Wound Care Infection Signs and Symptoms: Increased Redness, Foul Odor of Wound, Increased Drainage, Increased Swelling, Temperature Above 101 F Wound Care Comment: You may remove your dressings in 2 days and shower; no baths or soaking tubs; your ary will be removed in the office at your first follow-up appointment. Bathing Instructions: Shower Operative Area Clean and Dry: Keep Incision Clean/Dry Stitches/[place]/Dermabond Dis: Care of FAM Vela DO May 04, 2017 17:52
[2017-05-04] MEDS: ATORVASTATIN 10 MG (LIPITOR) TABLET PO SCH (20:22)
[2017-05-04] MEDS: inSUlin DETERMIR 1 UNIT/0.01 ML (LEVEMIR) CHARGE PER UNIT SQ SCH (21:13)
[2017-05-05] VITALS: BP 177/77
[2017-05-05 04:00] VITALS: BP 158/75
[2017-05-05 05:14] LABS: BASOPHILS % (AUTO) 0 % (0-10); EOSINOPHILS # (AUTO) 0.1 10^3/uL (0.0-0.3); EOSINOPHILS % (AUTO) 2 % (0-10); HEMATOCRIT 27 % (35-52); HEMOGLOBIN 8.9 G/DL (11.5-16.0); LYMPHOCYTES # (AUTO) 1.2 X 10^3 (1.0-4.0); LYMPHOCYTES % (AUTO) 14 % (12-44); MEAN CORPUSCULAR HEMOGLOBIN 30 PG (25-34); MEAN CORPUSCULAR HGB CONC 33 G/DL (32-36); MEAN CORPUSCULAR VOLUME 90 FL (80-99); MEAN PLATELET VOLUME 10.8 FL (7.4-10.4); MONOCYTES % (AUTO) 12 % (0-12); NEUTROPHILS # (AUTO) 6.1 X 10^3 (1.8-7.8); NEUTROPHILS % (AUTO) 73 % (42-75); PLATELET COUNT 190 10^3/uL (130-400); RED BLOOD COUNT 2.99 10^6/uL (4.35-5.85); RED CELL DISTRIBUTION WIDTH 13.6 % (10.0-14.5); WHITE BLOOD COUNT 8.4 10^3/uL (4.3-11.0)
[2017-05-05 05:22] LABS: INR 1.2 (0.8-1.4); PROTHROMBIN TIME PATIENT 15.6 SEC (12.2-14.7)
[2017-05-05] MEDS: inSUlin (REGULAR) HUMAN 1 UNIT/0.01 ML (CHARGE PER UNIT) SC SCH ×4 (06:20→21:50)
[2017-05-05] MEDS: metFORMIN 500 MG (GLUCOPHAGE) TAB PO SCH ×2 (06:45→17:08)
[2017-05-05] MEDS: morphine INJ 4 MG/ML 1 ML (VIAL/SYRINGE) IV PRN (06:45)
[2017-05-05] MEDS: CALCIUM CARB + VIT D 600 MG (CALCARB + D) TAB PO SCH ×2 (06:45→17:08)
[2017-05-05] MEDS: PANTOPRAZOLE 40 MG (PROTONIX) TAB PO SCH (06:46)
[2017-05-05] MEDS: SENNA W/DOCUSATE (SENOKOT S) TABLET PO SCH ×2 (07:42→20:23)
[2017-05-05 08:00] VITALS: BP 158/75
[2017-05-05] MEDS: CARVEDILOL 12.5 MG (COREG) TABLET PO SCH ×2 (08:05→20:23)
[2017-05-05] MEDS: MICONAZOLE 2% POWDER (DESENEX AF) 90 GM TOP SCH ×2 (08:05→20:23)
--- NOTE | 2017-05-05 11:03 | Physical Therapy Daily Note ---
PT Daily Note-Current Subjective Pt agreeable. Pt requests BR privileges. Pain rated 0/10 upon arrival, 8/10 during weightbearing and 3/10 post therapy session. Mental Status Patient Orientation: Person, Place, Situation Transfers Functional [place] Measure 0=Not Assessed/NA 4=Minimal Assistance 1=Total Assistance 5=Supervision or Setup 2=Maximal Assistance 6=Modified [place] 3=Moderate Assistance 7=Complete IndependenceIRFPAI Quality Coding Scale 6 Independent with activity with or without an assistive device 5 Patient requires set up or clean up by helper. Patient completes activity by themselves 4 Supervision or touching assist (CGA). [place] provide cues , steadying assist 3 The helper provides less than half the effort to complete the activity 2 The helper provides more than half the effort to complete the activity 1 Dependent. The helper does all the effort to complete an activity 7 Patient refused to complete or attempt activity 9 The patient did not perform the activity before the current illness or injury 88 Not attempted due to Medical conditions or safety concerns Min A (B) LE for transfer in/out bed, SBA for sit to stand Weight Bearing Right Lower Extremity: Right Full Weight Bearing Left Lower Extremity: Left Weight Bearing/Tolerated Gait Training Gait Assistive Device: FWW Pt amb 30ft with CGA, FWW, WBAT (L) LE Exercises Supine Ex: LE Protocol Supine Reps: 15 Treatments Ther ex AAROM, SAQ AROM Assessment Current Status: Good Progress Pt min A for bed mobility, SBA for BR privileges and min A for (L) LE exercise PT Short Term Goals Short Term Goals Time Frame: May 11, 2017 Transfers (B,C,W/C) (FIM): 4 Gait (FIM): 2 Distance (FIM): 1=566-10 ft Gait Distance Comment: 125' Gait Level of Assist: 4 Gait Assistive Device: FWW PT Cloth Tester Quality Goals Nursing Home Goals PT Nursing Home Goals Time Frame: May 18, 2017 Transfers (B,C,W/C) (FIM): 6 Gait (FIM): 6 Gait distance (FIM): 3=150 ft Distance: 200' Gait Level of Assist: 6 Gait Assistive Device: FWW PT Plan Treatment/Plan Treatment Plan: Continue Plan of Care Treatment Plan: Bed Mobility, Education, Functional Activity Issac, Functional Strength, Gait, Safety, Therapeutic Exercise, Transfers Treatment Duration: May 18, 2017 Frequency: 11 times per week Estimated Hrs Per Day: .5 hour per day Patient and/or Family Agrees t: Yes Time/GCodes Time In: 915 Time Out: 945 Total Billed Treatment Time: 30 Total Billed Treatment 1, Ex 10 min, FA 5 min, Gait 15 min LUCINDA EL CPTA May 05, 2017 11:03
[2017-05-05 12:00] VITALS: BP 153/70
[2017-05-05] MEDS: ENOXAPARIN 40 MG/0.4 ML (LOVENOX) SYR SC SCH (13:42)
--- NOTE | 2017-05-05 15:10 | Progress Note-Hospitalist ---
Subjective HPI/CC On Admission Date Seen by Provider: May 05, 2017 Time Seen by Provider: 13:15 Subjective/Events-last exam Patient is laying in bed just after her bath. She denies having any chest pain or shortness of breath but does have hip pain with ambulation. She has some fear of falling but is looking for to going to rehabilitation Review of Systems Musculoskeletal: leg pain Objective Exam Vital Signs Vital Signs Date Time Temp Pulse Resp B/P (MAP) Pulse Ox O2 Delivery O2 Flow Rate FiO2 05/01/17 06:37 95.6 81 16 184/89 (120) 96 Room Air 05/02/17 16:00 2.00 Capillary Refill : Less Than 3 SecondsLess Than 3 Seconds General Appearance: No Apparent Distress, WD/WN HEENT: Normal ENT Inspection Neck: Supple Respiratory: Lungs Clear, Normal Breath Sounds, No Accessory Muscle Use, No Respiratory Distress Cardiovascular: Regular Rate, Rhythm, No Gallop, No Murmur Gastrointestinal: Non Tender, Soft Extremity: No Pedal Edema Neurologic/Psychiatric: Alert, Oriented x3 Skin: Warm/Dry, Pallor Results/Procedures Lab Laboratory Tests 05/05/17 04:56 Assessment/Plan Assessment and Plan Assess & Plan/Chief Complaint 1. Left intertrochanteric hip fracture--S/P ORIF, pain control, PT/OT, rehab tomorrow 2. 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 Hypertension--back on home meds but it's still elevated 4. Diabetes mellitus--insulin requiring--on SSI and added levemir 5. GERD--resumed protonix 6. Memory Loss--recent CT scan shows microvascular changes with history of lacunar infarcts and has a family history of alzheimers so may start aricept during hospital stay 7. Acute on Chronic Anemia from recent surgery--transfused 2 units packed red blood cells with a hemoglobin of 8.9 today 8. Constipation-resolved TERI CHRISTENSEN MD May 05, 2017 15:10
[2017-05-05 16:00] VITALS: BP 166/72
[2017-05-05] MEDS: warFARin 5 MG (COUMADIN) TAB PO SCH (17:08)
--- NOTE | 2017-05-05 17:48 | Progress Note-Standard ---
Standard Progress Note Progress Notes/Assess & Plan Date Seen by Provider: May 05, 2017 Time Seen by Provider: 17:30 Progress/Assessment & Plan Pt AJ, doing well, no complaints VSSAF Labs stable, Hb up to 8.9 after prbc transfusion LLE: dressings c/d/i, all compartments soft/compressible, motor/sensation grossly intact, foot well perfused S/P ORIF IT fracture Left proximal femur, POD #3 Orthopedically stable Continue current care Plan for d/c to rehab tomorrow. FAM DODSON DO May 05, 2017 17:48
[2017-05-05] MEDS: ATORVASTATIN 10 MG (LIPITOR) TABLET PO SCH (20:22)
[2017-05-05 20:28] VITALS: BP 176/74
[2017-05-05] MEDS: inSUlin DETERMIR 1 UNIT/0.01 ML (LEVEMIR) CHARGE PER UNIT SQ SCH (21:50)
[2017-05-05] MEDS: BACLOFEN 10 MG (LIORESAL) TAB PO PRN (21:50)
[2017-05-06 00:35] VITALS: BP 168/80
[2017-05-06] MEDS: inSUlin (REGULAR) HUMAN 1 UNIT/0.01 ML (CHARGE PER UNIT) SC SCH ×4 (05:44→21:24)
[2017-05-06 06:02] LABS: INR 1.6 (0.8-1.4); PROTHROMBIN TIME PATIENT 19.5 SEC (12.2-14.7)
[2017-05-06] MEDS: metFORMIN 500 MG (GLUCOPHAGE) TAB PO SCH ×2 (06:04→16:52)
[2017-05-06] MEDS: CALCIUM CARB + VIT D 600 MG (CALCARB + D) TAB PO SCH ×2 (06:04→16:52)
[2017-05-06] MEDS: PANTOPRAZOLE 40 MG (PROTONIX) TAB PO SCH (06:04)
[2017-05-06 08:30] VITALS: BP 162/84
[2017-05-06] MEDS: SENNA W/DOCUSATE (SENOKOT S) TABLET PO SCH ×2 (08:31→20:43)
[2017-05-06] MEDS: CARVEDILOL 12.5 MG (COREG) TABLET PO SCH ×2 (08:31→20:43)
[2017-05-06] MEDS: MICONAZOLE 2% POWDER (DESENEX AF) 90 GM TOP SCH ×2 (08:31→20:45)
[2017-05-06] MEDS: BACLOFEN 10 MG (LIORESAL) TAB PO PRN ×2 (09:18→20:43)
--- NOTE | 2017-05-06 12:35 | Progress Note (SOAP) ---
Subjective Date Seen by Provider: May 06, 2017 Time Seen by Provider: 11:45 Subjective/Events-last exam Pt AJ, doing well, no overnight events, no current complaints. Objective Exam Vital Signs Date Time Temp Pulse Resp B/P (MAP) Pulse Ox O2 Delivery O2 Flow Rate FiO2 05/06/17 08:30 98.6 74 20 162/84 (110) 98 Room Air 05/06/17 08:25 Room Air 05/06/17 00:35 98.2 66 18 168/80 (109) 97 Room Air 05/05/17 20:28 68 176/74 (108) 05/05/17 20:25 Room Air 05/05/17 16:00 98.2 77 18 166/72 (103) 96 Room Air I & O 05/06/17 07:00 Intake Total 1880 ml Output Total 450 ml Balance 1430 ml Capillary Refill : Less Than 3 SecondsLess Than 3 Seconds General Appearance: No Apparent Distress, WD/WN HEENT: PERRL/EOMI Respiratory: No Accessory Muscle Use, No Respiratory Distress Cardiovascular: Regular Rate, Rhythm, Normal Peripheral Pulses Peripheral Pulses: 2+ Dorsalis Pedis (R), 2+ Left Dors-Pedis (L) Gastrointestinal: non tender, soft Extremity: Other (LLE: dressings c/d/i, all compartments soft/compressible, motor/sensation grossly intact, foot well perfused.) Neurologic/Psychiatric: Alert, Oriented x3, No Motor/Sensory Deficits, Normal Mood/Affect Skin: Normal Color, Warm/Dry Results Lab Laboratory Tests 05/05/17 15:58: Glucometer 327H 05/05/17 21:22: Glucometer 351H 05/06/17 05:27: Prothrombin Time 19.5H, INR Comment 1.6H 05/06/17 05:42: Glucometer 138H 05/06/17 11:34: Glucometer 323H Microbiology 05/01/17 Urine Culture - Final, Complete NO GROWTH Assessment/Plan Assessment/Plan Assess & Plan/Chief Complaint S/P ORIF Intertrochanteric fracture Left proximal femur, POD #4 Doing well, orthopedically stable Continue to mobilize OOB with PT/OT, WBAT LLE Current pain control regimen Bowel regimen Lovenox bridge/coumadin for VTE prophylaxis per medicine SCDs/ISB Acute post-op blood loss anemia: stable s/p transfusion D/C planning: SS consult for placement Instructions given Questions answered. Clinical Quality Measures Admission Status Admission Dx Intertrochanteric fracture Left proximal femur. DVT/VTE Risk/Contraindication: Risk Factor Score Per Nursin RFS Level Per Nursing on Admit: 4+=Very High FAM DODSON DO May 06, 2017 12:35
--- NOTE | 2017-05-06 13:31 | Progress Note-Hospitalist ---
Subjective HPI/CC On Admission Date Seen by Provider: May 06, 2017 Time Seen by Provider: 12:45 Subjective/Events-last exam Patient complains primarily of her left knee hurting her. It's been bone-on- bone for some time. She has received multiple injections in it. She has a [place] filter placed because of a large DVT in 2006 Review of Systems Musculoskeletal: leg pain Objective Exam Vital Signs Vital Signs Date Time Temp Pulse Resp B/P (MAP) Pulse Ox O2 Delivery O2 Flow Rate FiO2 05/01/17 06:37 95.6 81 16 184/89 (120) 96 Room Air 05/02/17 16:00 2.00 Capillary Refill : Less Than 3 SecondsLess Than 3 Seconds General Appearance: No Apparent Distress HEENT: Pale Conjunctivae (R) Neck: Supple Respiratory: Lungs Clear, Normal Breath Sounds, No Accessory Muscle Use, No Respiratory Distress Cardiovascular: Regular Rate, Rhythm, No Gallop, No Murmur Gastrointestinal: Non Tender, Soft Extremity: Pedal Edema Neurologic/Psychiatric: Alert, Oriented x3, Normal Mood/Affect Skin: Pallor Assessment/Plan Assessment and Plan Assess & Plan/Chief Complaint 1. Left intertrochanteric hip fracture--S/P ORIF, pain control, PT/OT, rehab in a.m. 2. 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 Hypertension--back on home meds but it's still elevated 4. Diabetes mellitus--insulin requiring--on SSI and added levemir 5. GERD--resumed protonix 6. Memory Loss--recent CT scan shows microvascular changes with history of lacunar infarcts and has a family history of alzheimers so may start aricept during hospital stay 7. Acute on Chronic Anemia from recent surgery--transfused 2 units packed red blood cells with a hemoglobin of 8.9 today 8. Constipation-resolved 9. Osteoarthritis of the left knee will start TERI Sotomayor MD May 06, 2017 1:31 pm
[2017-05-06] MEDS: ENOXAPARIN 40 MG/0.4 ML (LOVENOX) SYR SC SCH (13:37)
[2017-05-06 16:50] VITALS: BP 169/85
[2017-05-06] MEDS: DICLOFENAC 1% GEL 100 GM (VOLTAREN) TUBE TOP SCH ×2 (16:52→20:45)
[2017-05-06] MEDS: warFARin 5 MG (COUMADIN) TAB PO SCH (18:02)
[2017-05-06] MEDS: ATORVASTATIN 10 MG (LIPITOR) TABLET PO SCH (20:43)
[2017-05-06] MEDS ORDERED: CHOLESTYRAMINE 4 GM (QUESTRAN LITE, PREVALITE) PKT PO ONE (20:45)
[2017-05-06] MEDS: inSUlin DETERMIR 1 UNIT/0.01 ML (LEVEMIR) CHARGE PER UNIT SQ SCH (21:24)
[2017-05-07 00:04] VITALS: BP 137/74
[2017-05-07] MEDS: morphine INJ 4 MG/ML 1 ML (VIAL/SYRINGE) IV PRN (05:08)
[2017-05-07] MEDS: inSUlin (REGULAR) HUMAN 1 UNIT/0.01 ML (CHARGE PER UNIT) SC SCH ×4 (05:14→21:14)
[2017-05-07] MEDS: metFORMIN 500 MG (GLUCOPHAGE) TAB PO SCH ×2 (06:22→17:09)
[2017-05-07] MEDS: CALCIUM CARB + VIT D 600 MG (CALCARB + D) TAB PO SCH ×2 (06:22→17:09)
[2017-05-07] MEDS: PANTOPRAZOLE 40 MG (PROTONIX) TAB PO SCH (06:22)
[2017-05-07 08:00] VITALS: BP 136/62
[2017-05-07] MEDS: CARVEDILOL 12.5 MG (COREG) TABLET PO SCH ×2 (08:48→20:47)
[2017-05-07] MEDS: MICONAZOLE 2% POWDER (DESENEX AF) 90 GM TOP SCH ×2 (08:48→20:50)
[2017-05-07] MEDS: DICLOFENAC 1% GEL 100 GM (VOLTAREN) TUBE TOP SCH ×4 (08:49→20:51)
[2017-05-07] MEDS: SENNA W/DOCUSATE (SENOKOT S) TABLET PO SCH ×2 (08:51→20:47)
--- NOTE | 2017-05-07 11:10 | Physical Therapy Daily Note ---
PT Daily Note-Current Subjective Patient rates left hip pain 10/10 with meds issued. Pain Numeric Pain Scale: 10-Worst Possible Pain Location: Left Location Body Site: Hip Pain Description: Acute Mental Status Patient Orientation: Normal For Age Transfers Functional [place] Measure 0=Not Assessed/NA 4=Minimal Assistance 1=Total Assistance 5=Supervision or Setup 2=Maximal Assistance 6=Modified [place] 3=Moderate Assistance 7=Complete IndependenceIRFPAI Quality Coding Scale 6 Independent with activity with or without an assistive device 5 Patient requires set up or clean up by helper. Patient completes activity by themselves 4 Supervision or touching assist (CGA). [place] provide cues , steadying assist 3 The helper provides less than half the effort to complete the activity 2 The helper provides more than half the effort to complete the activity 1 Dependent. The helper does all the effort to complete an activity 7 Patient refused to complete or attempt activity 9 The patient did not perform the activity before the current illness or injury 88 Not attempted due to Medical conditions or safety concerns Transfers (B, C, W/C) (FIM): 4 Scootin Rollin Supine to/from Sit: 4 Sit to/from Stand: 4 Weight Bearing Right Lower Extremity: Right Full Weight Bearing Left Lower Extremity: Left Weight Bearing/Tolerated Gait Training Gait (FIM): 2 Distance (FIM): 9=735-39 ft Distance: 125' Gait Level of Assist: 4 Gait Persons Needed: 1 Gait Assistive Device: FWW slow, antalgic gait sequence Exercises Seated Therapy Exercises: Ankle pumps, Long arc quads, Hip flexion Seated Reps: 25 (2 sets) Assessment Patient progressing with treatment plan with will continue to improve with increase in activity. PT Short Term Goals Short Term Goals Time Frame: May 11, 2017 Transfers (B,C,W/C) (FIM): 4 Gait (FIM): 2 Distance (FIM): 9=590-98 ft Gait Distance Comment: 125' Gait Level of Assist: 4 Gait Assistive Device: FWW PT Senior Living Goals Manager Social Work Goals PT Manager Social Work Goals Time Frame: May 18, 2017 Transfers (B,C,W/C) (FIM): 6 Gait (FIM): 6 Gait distance (FIM): 3=150 ft Distance: 200' Gait Level of Assist: 6 Gait Assistive Device: FWW PT Plan Treatment/Plan Treatment Plan: Continue Plan of Care Treatment Plan: Bed Mobility, Education, Functional Activity [place], Functional Strength, Gait, Safety, Therapeutic Exercise, Transfers Treatment Duration: May 18, 2017 Frequency: 11 times per week Estimated Hrs Per Day: .5 hour per day Patient and/or Family Agrees t: Yes Time/GCodes Time In: 1025 Time Out: 1048 Total Billed Treatment Time: 23 Total Billed Treatment 1 visit GT 14 min EX 9 min CECILIA DE OLIVEIRA PT May 07, 2017 11:10
--- NOTE | 2017-05-07 11:43 | Occupational Ther Daily Note ---
OT Current Status-Daily Note Subjective No pain reported. Appearance Pt. in bed. Agreeable to treatment. Mental Status/Objective Patient Orientation: Person, Place, Time, Situation Functional [place] Measure 0=Not Assessed/NA 4=Minimal Assistance 1=Total Assistance 5=Supervision or Setup 2=Maximal Assistance 6=Modified [place] 3=Moderate Assistance 7=Complete [place] ADL-Treatment Lower Body Dressing (FIM): 3 (Pt. is able to doff her socks while seated, but is unable to don them. OT dons them for her.) Toileting (FIM): 4 (Min assist in stance to pull down and up pants and toilet self.) Transfers (B, C, W/C) (FIM): 3 (Mod assist to transfer supine-sit, and then min assist to stand and ambulate to chair in room.) Toilet/Commode Transfer (FIM): 4 Other Treatment Pt. states that she has already spongebathed with nursing assist. Education OT Patient Education: Correct positioning, Modified ADL techniques, Progress toward Goal/Update tx plan, Purpose of tx/functional activities, Reviewed precautions, Rehab process, Transfer techniques Teaching Recipient: Patient Teaching Methods: Demonstration, Discussion Response to Teaching: Verbalize Understanding, Return Demonstration OT Short Term Goals Short Term Goals Time Frame: May 10, 2017 Eating(FIM): 5 Grooming(FIM): 5 Bathing(FIM): 3 Upper Body Dressing(FIM): 4 Lower Body Dressing(FIM): 3 Toileting(FIM): 3 Transfers (B,C,W/C) (FIM): 4 Toilet/Commode Transfer(FIM): 4 Additional Short Term Goals: 1-Demonstrate ADL Tasks, 2-Verbalize Understanding , 3-ImproveStrength/Issac 1=Demonstrate adherence to instructed precautions during ADL tasks. 2=Patient will verbalize/demonstrate understanding of assistive devices/ modifications for ADL. 3=Patient will improve strength/tolerance for activity to enable patient to perform ADL's. OT Valet Cashier Goals Custodial Goals Time Frame: May 17, 2017 Eating (FIM): 6 Grooming(FIM): 6 Bathing(FIM): 5 Upper Body Dressing(FIM): 5 Lower Body Dressing(FIM): 5 Toileting(FIM): 5 Transfers (B,C,W/C) (FIM): 5 Toilet/Commode Transfer(FIM): 5 Shower Transfer(FIM): 5 Additional Goals: 1-Demonstrate ADL Tasks, 2-Verbalize Understanding, 3- ImproveStrength/Issac 1=Demonstrate adherence to instructed precautions during ADL tasks. 2=Patient will verbalize/demonstrate understanding of assistive devices/ modifications for ADL. 3=Patient will improve strength/tolerance for activity to enable patient to perform ADL's. OT Education/Plan Problem List/Assessment Assessment: Decreased Activ Tolerance, Dependent Transfers, Impaired Bed Mobility, Impaired Funct Balance, Impaired I ADL's, Impaired Self-Care Skills Discharge Recommendations Plan/Recommendations: Continue POC Therapy D/C Recommendations: Acute Rehab Treatment Plan/Plan of Care Treatment,Training & Education: Yes Patient would benefit from OT for education, treatment and training to promote independence in ADL's, mobility, safety and/or upper extremity function for ADL' s. Plan of Care: ADL Retraining, Caregiver Training, Functional Mobility, UE Funct Exercise/Act Treatment Duration: May 17, 2017 Frequency: 5 times per week Estimated Hrs Per Day: .5 hour per day Agreement: Yes Rehab Potential: Good Time/GCodes Start Time: 09:20 Stop Time: 09:45 Total Time Billed (hr/min): 25 Billed Treatment Time 1, ADL x 2 NASEEM BURK OT May 07, 2017 11:43
[2017-05-07] MEDS: ENOXAPARIN 40 MG/0.4 ML (LOVENOX) SYR SC SCH (12:24)
--- NOTE | 2017-05-07 12:46 | Progress Note (SOAP) ---
Subjective Date Seen by Provider: May 07, 2017 Time Seen by Provider: 12:41 Subjective/Events-last exam Fwup Left hip fracture, DM--insulin requiring, Chronic coumadin therapy, Hypertension. Pain well controlled in left hip. Right hip hurting some. Objective Exam Vital Signs Date Time Temp Pulse Resp B/P (MAP) Pulse Ox O2 Delivery O2 Flow Rate FiO2 05/07/17 08:00 Room Air 05/07/17 08:00 98.4 72 18 136/62 (86) 96 Room Air 05/07/17 00:04 98.5 66 17 137/74 (95) 98 Room Air 05/06/17 20:20 Room Air 05/06/17 16:50 98.4 67 18 169/85 (113) 98 Room Air I & O 05/07/17 07:00 Intake Total 1340 ml Output Total 1400 ml Balance -60 ml Capillary Refill : Less Than 3 SecondsLess Than 3 Seconds General Appearance: No Apparent Distress Neck: Supple Respiratory: Lungs Clear Cardiovascular: Regular Rate, Rhythm Gastrointestinal: normal bowel sounds, non tender, soft Extremity: Non Tender, No Calf Tenderness, No Pedal Edema Neurologic/Psychiatric: Alert, Oriented x3 Skin: Normal Color, Other (left hip with dressing dry and in place) Results Lab Laboratory Tests 05/06/17 16:45: Glucometer 296H 05/06/17 21:14: Glucometer 256H 05/07/17 05:14: Glucometer 105 05/07/17 11:45: Glucometer 231H Microbiology 05/07/17 C. difficile GDH Antigen & Toxins - Final, Complete 05/01/17 Urine Culture - Final, Complete NO GROWTH Assessment/Plan Assessment/Plan Assess & Plan/Chief Complaint 1. Left intertrochanteric hip fracture--S/P ORIF, pain control, PT/OT, Transfer to Rehab if okay with ortho 2. 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 Hypertension--back on home meds 4. Diabetes mellitus--insulin requiring--on SSI and will increase levemir dose 5. GERD--resumed protonix 6. Memory Loss--recent CT scan shows microvascular changes with history of lacunar infarcts and has a family history of alzheimers so may start aricept during hospital stay 7. Acute on Chronic Anemia from recent surgery--S/P transfusion, repeat CBC 8. Left knee pain/OA--stable 9. Right Hip Pain--likely compensatory from left hip fracture Clinical Quality Measures DVT/VTE Risk/Contraindication: Risk Factor Score Per Nursin RFS Level Per Nursing on Admit: 4+=Very High SHAKEEL BRUCE DO May 07, 2017 12:46
--- NOTE | 2017-05-07 13:41 | Physical Therapy Daily Note ---
PT Daily Note-Current Subjective Patient agrees to PT. No c/o. Pain Numeric Pain Scale: 5-Moderate Pain Location: Left Location Body Site: Hip Pain Description: Acute Mental Status Patient Orientation: Normal For Age Transfers Functional [place] Measure 0=Not Assessed/NA 4=Minimal Assistance 1=Total Assistance 5=Supervision or Setup 2=Maximal Assistance 6=Modified [place] 3=Moderate Assistance 7=Complete IndependenceIRFPAI Quality Coding Scale 6 Independent with activity with or without an assistive device 5 Patient requires set up or clean up by helper. Patient completes activity by themselves 4 Supervision or touching assist (CGA). [place] provide cues , steadying assist 3 The helper provides less than half the effort to complete the activity 2 The helper provides more than half the effort to complete the activity 1 Dependent. The helper does all the effort to complete an activity 7 Patient refused to complete or attempt activity 9 The patient did not perform the activity before the current illness or injury 88 Not attempted due to Medical conditions or safety concerns Transfers (B, C, W/C) (FIM): 4 Scootin Supine to/from Sit: 4 Sit to/from Stand: 4 Weight Bearing Right Lower Extremity: Right Full Weight Bearing Left Lower Extremity: Left Weight Bearing/Tolerated Gait Training Gait (FIM): 2 Distance (FIM): 0=232-13 ft Distance: 125' Gait Level of Assist: 5 Gait Persons Needed: 1 Gait Assistive Device: FWW slow, antalgic Exercises Supine Ex: Ankle pumps, Quad Set, Heel Slides, Straight leg raise, Hip abd/add Supine Reps: 15 Seated Therapy Exercises: Ankle pumps, Long arc quads Seated Reps: 15 Assessment Patient progressing with treatment plan. Plan transfer to ARU in a.m. PT Short Term Goals Short Term Goals Time Frame: May 11, 2017 Transfers (B,C,W/C) (FIM): 4 Gait (FIM): 2 Distance (FIM): 7=814-92 ft Gait Distance Comment: 125' Gait Level of Assist: 4 Gait Assistive Device: FWW PT Snf Goals Well Service Pump Equipment Operator Goals PT Snf Goals Time Frame: May 18, 2017 Transfers (B,C,W/C) (FIM): 6 Gait (FIM): 6 Gait distance (FIM): 3=150 ft Distance: 200' Gait Level of Assist: 6 Gait Assistive Device: FWW PT Plan Treatment/Plan Treatment Plan: Continue Plan of Care Treatment Plan: Bed Mobility, Education, Functional Activity [place]ac, Functional Strength, Gait, Safety, Therapeutic Exercise, Transfers Treatment Duration: May 18, 2017 Frequency: 11 times per week Estimated Hrs Per Day: .5 hour per day Patient and/or Family Agrees t: Yes Time/GCodes Time In: 1305 Time Out: 1329 Total Billed Treatment Time: 24 Total Billed Treatment 1 visit EX 10 min GT 14 min CECILIA DE OLIVEIRA PT May 07, 2017 13:41
[2017-05-07 14:37] LABS: BASOPHILS % (AUTO) 0 % (0-10); EOSINOPHILS # (AUTO) 0.2 10^3/uL (0.0-0.3); EOSINOPHILS % (AUTO) 3 % (0-10); HEMATOCRIT 29 % (35-52); HEMOGLOBIN 9.6 G/DL (11.5-16.0); LYMPHOCYTES # (AUTO) 0.8 X 10^3 (1.0-4.0); LYMPHOCYTES % (AUTO) 15 % (12-44); MEAN CORPUSCULAR HEMOGLOBIN 30 PG (25-34); MEAN CORPUSCULAR HGB CONC 33 G/DL (32-36); MEAN CORPUSCULAR VOLUME 90 FL (80-99); MEAN PLATELET VOLUME 10.3 FL (7.4-10.4); MONOCYTES # (AUTO) 0.5 X 10^3 (0.0-1.0); MONOCYTES % (AUTO) 10 % (0-12); NEUTROPHILS % (AUTO) 72 % (42-75); PLATELET COUNT 249 10^3/uL (130-400); RED BLOOD COUNT 3.23 10^6/uL (4.35-5.85); RED CELL DISTRIBUTION WIDTH 13.3 % (10.0-14.5); WHITE BLOOD COUNT 5.5 10^3/uL (4.3-11.0)
[2017-05-07 14:49] LABS: INR 2.5 (0.8-1.4); PROTHROMBIN TIME PATIENT 26.6 SEC (12.2-14.7)
--- NOTE | 2017-05-07 15:20 | Progress Note-Standard ---
Standard Progress Note Progress Notes/Assess & Plan Date Seen by Provider: May 07, 2017 Time Seen by Provider: 15:20 Progress/Assessment & Plan Pt AJ, doing well, no complaints VSSAF Labs stable LLE: dressings c/d/i, all compartments soft/compressible, motor/sensation grossly intact, foot well perfused S/P ORIF IT fracture Left proximal femur, POD #5 Orthopedically stable Continue current care OK to d/c to rehab Instructions given Questions answered. Follow-up outpatient in 2 weeks. FAM DODSON DO May 07, 2017 15:20
[2017-05-07 16:21] VITALS: BP_SYST 158; BP_SYST 170; BP_DIAS 70; BP_DIAS 72
[2017-05-07] MEDS: warFARin 5 MG (COUMADIN) TAB PO SCH (17:09)
[2017-05-07] MEDS: ATORVASTATIN 10 MG (LIPITOR) TABLET PO SCH (20:46)
[2017-05-07] MEDS: inSUlin DETERMIR 1 UNIT/0.01 ML (LEVEMIR) CHARGE PER UNIT SQ SCH (21:14)
[2017-05-08] VITALS: BP 183/82
[2017-05-08 01:48] VITALS: BP 178/77
[2017-05-08] MEDS: CALCIUM CARB + VIT D 600 MG (CALCARB + D) TAB PO SCH (06:22)
[2017-05-08] MEDS: metFORMIN 500 MG (GLUCOPHAGE) TAB PO SCH (06:22)
[2017-05-08] MEDS: PANTOPRAZOLE 40 MG (PROTONIX) TAB PO SCH (06:22)
[2017-05-08 06:59] LABS: INR 2.6 (0.8-1.4); PROTHROMBIN TIME PATIENT 27.9 SEC (12.2-14.7)
[2017-05-08] MEDS: inSUlin (REGULAR) HUMAN 1 UNIT/0.01 ML (CHARGE PER UNIT) SC SCH (07:11)
[2017-05-08 08:00] VITALS: BP 160/80
[2017-05-08] MEDS: SENNA W/DOCUSATE (SENOKOT S) TABLET PO SCH (08:15)
[2017-05-08] MEDS: CARVEDILOL 12.5 MG (COREG) TABLET PO SCH (08:30)
[2017-05-08 09:30] VITALS: BP 160/80
[2017-05-08] MEDS ORDERED: ACET-93 PO (13:11)
--- NOTE | 2017-05-16 12:45 | OPERATIVE REPORT ---
DATE OF SERVICE: 05/02/2017 PREOPERATIVE DIAGNOSIS: Displaced, comminuted, intertrochanteric fracture of left proximal femur. POSTOPERATIVE DIAGNOSIS: Displaced, comminuted, intertrochanteric fracture of left proximal femur. PROCEDURE: Open reduction and internal fixation of displaced, comminuted, four-part intertrochanteric fracture of left proximal femur. IMPLANTS USED: The [employer] short TFN size 11 mm in diameter with a 125 degree proximal angle. ATTENDING SURGEON: Dr. Fam Dodson. STOCK WETTER: Abilio Mcintosh PA-C; MrTam Mcintosh's assistance was required secondary to the complexity of the case, in order to hold required retractors for vital neurovascular structures, and to increase the efficiency and efficacy of the case, this case would not have been possible without an podiatry assistant. ANESTHESIA: General endotracheal. ESTIMATED BLOOD LOSS: 250 mL. COMPLICATIONS: None. SPECIMENS: None. DRAINS: None. BRIEF HISTORY AND INDICATIONS: The patient is a pleasant 67-year-old female, who sustained a mechanical ground level fall, landing onto her left hip on 05/01/2017. She subsequently had severe pain in her left hip and an inability to bear weight or ambulate on her left lower extremity. She subsequently presented to the [facility] Emergency Department for evaluation and treatment. Upon presentation, plain radiographs of the left femur demonstrated a comminuted intertrochanteric fracture of the left proximal femur. Orthopedic service was consulted for definitive management of her injury. Upon presentation, the patient was alert and oriented, she denied head trauma or loss of consciousness. She denied other musculoskeletal injuries and complained of only severe left hip pain. Her left lower extremity had grossly intact motor and sensory function, her skin was intact and there were no open wounds. I discussed the nature of the injury with the patient in detail including the natural history, prognosis, and indications for surgery. We also discussed the risks, benefits, potential complications and expected outcomes of operative fixation. Risks that were discussed included significant bleeding, infection, damage to surrounding neurovascular structures, malunion, nonunion, irritation of hardware, and potential need for secondary surgical procedures. The patient gave informed written consent to proceed as planned with operative fixation of her injury. After all of her questions were answered to her satisfaction. PROCEDURE NOTE: After correctly identifying the patient as the patient in the preoperative holding area and after her left hip was appropriately marked, she was transferred to the operating room. Once in the operating room, she had successful induction of general endotracheal anesthesia and then she was transferred to the radiolucent fracture table and placed in the supine position. All bony prominences were meticulously padded. The operative extremity was secured to the fracture table with a well-padded fracture boot. The contralateral well extremity was secured in the scissor position to the contralateral ____ of the fracture table and well-padded. We then completed a closed reduction maneuver of the fracture of the left proximal femur and verified near acceptable reduction with AP and lateral views with the C-arm. The reduction obtained in a closed fashion, I did not believe, was acceptable. Therefore, an open reduction procedure was planned. The left leg was prepped and draped in the routine sterile fashion. Prior to beginning the case, we completed an operating room timeout with all parties involved in the case and agreement and verified appropriate infusion of prophylactic antibiotics. Using a #10-blade scalpel, I made an incision directly over the lateral proximal femur of approximately 5 cm in length incising through the skin and subcutaneous tissue. Bovie cautery was then used to dissect through the fascia of the IT band and the gluteus saurabh. The fracture of the left proximal femur was then exposed and debrided in the usual fashion, so as to minimize periosteal stripping. We then completed a close reduction maneuver to bring the fracture into an acceptable position as confirmed with AP and lateral views of C-arm fluoroscopy. The reduction was held in place with a series of clamps. Then, under fluoroscopic guidance I inserted the guide pin from the TFN system into the proximal femur at the tip of the greater trochanter and advanced it distally to just distal to the lesser trochanter. This pin was placed in the appropriate position as confirmed on AP and lateral C-arm views. I then used the opening reamer to open the airline transport pilot hole in the proximal femur in preparation for the nail. The nail was then inserted into the proximal femur with light pressure and light taps of the mallet and inserted to the appropriate depth. This confirmed AP C-arm view. Once this was in place, the pin for the cephalomedullary screw was placed into the appropriate position in the femoral head and neck through the external aiming arm under fluoroscopic guidance and confirmed to be in the appropriate center-center position on both AP and lateral C-arm views. The length of the lag screw was then measured followed by use of the step reamer to prepare the path of the lag screw. The lag screw was then inserted to the appropriate depth in the femoral head to give us a good tip apex distance as confirmed on AP and lateral C-arm views. We then performed a compression across the fracture with compression mechanism in the nail and the nail was locked proximally. We then placed a single lateral to medial locking bolt distally through the external aiming arm. This completed our fixation. The final imaging AP and lateral C-arm views confirmed that the hardware was in appropriate position and that the fracture was acceptably aligned. We then irrigated the wounds out with copious amounts of sterile saline followed by standard closure. Closure was completed with 0 Vicryl for the deep fascia, 2-0 Vicryl for the subcutaneous tissue and ary for the skin. The patient then had sterile dressings applied followed by being awakened and extubated in the operating room without complications. She was then transferred to the PACU in stable condition and she tolerated the procedure well. All counts were correct at the end of the case. Job ID: [id number] DocumentID: [id number] Dictated Date: 05/11/2017 10:03:22 [employer]ark Affixer Date: 05/11/2017 19:23:27 Dictated By: FAM DODSON
[2017-05-18] MEDS ORDERED: ACID1TAB PO (13:23)
[2017-05-18] MEDS ORDERED: DICL100G18 TOP (13:23)
[2017-05-18] MEDS ORDERED: MICO90PO TOP (13:23)
[2017-05-18] MEDS ORDERED: HYDR12.5 PO ×2 (13:23)
[2017-05-18] MEDS ORDERED: INSU100V5 SQ (13:23)
[2017-05-18] MEDS ORDERED: INSU100V16 SC (13:23)
[2017-05-18] MEDS ORDERED: DONE5TAB8 PO (13:23)
[2017-05-18] MEDS ORDERED: LOSA50TA36 PO (13:23)
== END 2017-05-08 09:30 | DRG 481 ==
LOC: EDUNIT# 06:38 → ER 06:39 → 4TH 09:01
PROVIDERS: ADMIT Orthopaedic Surgery; ATTEND Orthopaedic Surgery
PROC: 0QS704Z Reposition Left Upper Femur with Internal Fixation Device, Open Approach (ICD-10-PCS; principal; 2017-05-02 10:17)
DX: S72.142A Displaced intertrochanteric fracture of left femur, initial encounter for closed fracture (principal); D62 Acute posthemorrhagic anemia; N39.0 Urinary tract infection, site not specified; I10 Essential (primary) hypertension; E11.9 Type 2 diabetes mellitus without complications; R41.3 Other amnesia; M85.9 Disorder of bone density and structure, unspecified; Z66 Do not resuscitate; K21.9 Gastro-esophageal reflux disease without esophagitis; K59.00 Constipation, unspecified; M17.12 Unilateral primary osteoarthritis, left knee; M25.551 Pain in right hip; W18.30XA Fall on same level, unspecified, initial encounter; Y92.009 Unspecified place in unspecified non-institutional (private) residence as the place of occurrence of the external cause; Z86.73 Personal history of transient ischemic attack (TIA), and cerebral infarction without residual deficits; Z86.718 Personal history of other venous thrombosis and embolism; Z79.01 Long term (current) use of anticoagulants; Z85.41 Personal history of malignant neoplasm of cervix uteri; Z90.710 Acquired absence of both cervix and uterus; Z79.4 Long term (current) use of insulin; Z82.0 Family history of epilepsy and other diseases of the nervous system
CPT/HCPCS: 36415; 51702; 71045; 80053; 81000; 82962; 85025; 85027; 85610; 85730; 86850; 86900; 86901; 86920; 87088; 87324; 87449; 94664; 96361; 96374

== ENCOUNTER 2017-05-06 15:21 | Inpatient (IN) | payer MEDICARE, MEDICAID ==
[~2017-05-06] VITALS: Ht 157.5 cm; Wt 83.2 kg
[~2017-05-06 15:21] MED LIST changes: +ACET-2267 PO; +ALEN70TA47 PO; +INSU100V6 SC; +TRAM50TA2 PO; +WARF4TAB PO
--- NOTE | 2017-05-08 11:07 | ST Cognitive Linguistic Eval ---
Speech Evaluation-General Medical Diagnosis Hip Fracture Therapy Diagnosis Therapy Diagnosis: Cognitive Linguistic Skills WNL Referral Referring Physician: Dr. Jose Guerra Reason for Referral: Evaluation/Treatment Cognitive Evaluation Medical History Pertinent Medical History: CVA, DM, HTN Reviewed History: Yes Speech PLF-Current Status Prior Level of Function The patient denied challenges with speech, language, or cognition prior to or throughout hospitalization. Subjective The patient was seated upright in recliner upon entrance. The patient greeted the clinician appropriately and was agreeable to participation in the cognitive evaluation. Language Eval: Auditory Comprehends Simple Yes/No Ques: Functional Indent/Objects Multiple [place]: Functional Ident/Pics in Multiple [place]: Functional Follows 1-Step Commands: Functional Follows Complex Directions: Functional Follows General Conversations: Functional Language Eval: Verbal Language Completes Spontaneous Greeting: Functional Produces Auto, Serial Info: Functional Imitates Simple Words/Phrases: Functional Word Finding: Functional Requests Basic Needs: Functional States Basic Personal Info: Functional Expresses Complex Ideas: Functional Cognitive Patient Orientation The patient was independently oriented to month, day of week, date, and year. Objective Cognitive Domain Attention: WNL Memory: WNL Problem Solving: Functional Objective Impression The patient demonstrated cognitive linguistic skills WNL. Communication/Social Cognition Comprehension: 6 Expression: 6 Social Interaction: 6 Problem Solvin Memory: 6 Speech Patient Assess Expression of Ideas/Wants: Expression (4) Understanding [place] Content: Understands (4) Brief Interview-Mental Status: Yes Repetition of Three Words: Three (3) Temporal Orientation: Year: Correct (3) Temporal Orientation: Month: Accurate within 5 days(2) Temporal Orientation: Day: Correct (1) Recall : Wear to say "Sock": Yes, no cue required (2) Recall : Color: Yes, no cue required (2) Recall : Bed: Yes, no cue required (2) Speech-Plan Treatment Plan Speech Therapy Treatment Plan: Discontinue ST Evaluation, only. Frequency: Modified Program (IRF) Estimated Hrs Per Day: Other Rehab Potential: Good Safety Risks/Education Teaching Recipient: Patient Teaching Methods: Discussion Response to Teaching: Verbalize Understanding Education Topics Provided: Results, Recommendations, Plan of Care Time Speech Therapy Time In: 10:35 Speech Therapy Time Out: 10:50 Total Billed Time: 15 Billed Treatment Time 1, SRIDEVI LITTLEJOHN May 08, 2017 11:07
[2017-05-08] MEDS ORDERED: MILK OF MAGNESIA 400 MG/5 ML 30 ML UDC PO PRN (11:15)
[2017-05-08] MEDS ORDERED: ONDANSETRON 4 MG/2 ML (SDV) Z0FRAN IV PRN (11:15)
[2017-05-08] MEDS ORDERED: morphine INJ 4 MG/ML 1 ML (VIAL/SYRINGE) IV PRN (11:15)
[2017-05-08 11:46] VITALS: BP 129/72
--- NOTE | 2017-05-08 11:49 | Physical Therapy Evaluation ---
PT Evaluation-General Medical Diagnosis Admission Date May 08, 2017 at 10:43 Medical Diagnosis: Hip Fracture Onset Date: May 01, 2017 Therapy Diagnosis Therapy Diagnosis: impaired mobility, strength, ROM, balance Height/Weight Height (Feet): 5 Height (Inches): 5.00 Weight (Pounds): 177 Weight (Ounces): 0.0 Weight Bear Status Right Lower Extremity: Right Full Weight Bearing Left Lower Extremity: Left Weight Bearing/Tolerated Referral Physician: Charlie Reason for Referral: Evaluation/Treatment Medical History Pertinent Medical History: CVA, DM, HTN Additional Medical History chronic UTI Current History fell at home 04/30/17 Reviewed History: Yes Social History Home: Single Level Current Living Status: Alone Entry Into Home: Stairs With Railing PT Steps Into Home: 1 Prior/Core FIM Prior Level of Function Functional [place] Measure 0=Not Assessed/NA 4=Minimal Assistance 1=Total Assistance 5=Supervision or Setup 2=Maximal Assistance 6=Modified [place] 3=Moderate Assistance 7=Complete [place] Bed Mobility: 7 Transfers (B,C,W/C) (FIM): 7 Gait: 7 Patient states she uses a single point cane for long distances. PT Evaluation-Current Subjective Patient in recliner pre tx, agrees to PT. Patient states she has little pain at rest but it can get to 9/10 with activity in her left hip and both knees. Pt/Family Goals to be independent at home Objective Patient Orientation: Person, Place, Situation ROM/Strength ROM Lower Extremities NT due to recent surgery and pain Strenght Lower Extremities NT due to recent surgery and pain Neuromuscular (Tone, Coordination, Reflexes) NT Sensory Vision: Wears Glasses Hearing: Functional Sensation Right Lower Extremit: Intact Sensation Left Lower Extremity: Intact Sensation Lower Extremities Patient has intact light touch sensation in left leg but states she has decreased sensation in left lateral thigh and calf. Transfers Functional [place] Measure 0=Not Assessed/NA 4=Minimal Assistance 1=Total Assistance 5=Supervision or Setup 2=Maximal Assistance 6=Modified [place] 3=Moderate Assistance 7=Complete IndependenceIRFPAI Quality Coding Scale 6 Independent with activity with or without an assistive device 5 Patient requires set up or clean up by helper. Patient completes activity by themselves 4 Supervision or touching assist (CGA). [place] provide cues , steadying assist 3 The helper provides less than half the effort to complete the activity 2 The helper provides more than half the effort to complete the activity 1 Dependent. The helper does all the effort to complete an activity 7 Patient refused to complete or attempt activity 9 The patient did not perform the activity before the current illness or injury 88 Not attempted due to Medical conditions or safety concerns Transfers (B, C, W/C) (FIM): 3 Scootin Rollin Roll Left to Right (QC): 3 Supine to/from Sit: 3 Sit to/from Stand: 4 bed t/f WC(FIM only if WC use): 4 Sit to Lying (QC): 2 Lying to Sitting/Side of Bed(Q: 2 Sit to Stand (QC): 4 Chair/Zrc-bv-Vrasv Xfer(QC): 4 Car Transfer (QC): 4 Patient performs supine to sit with mod assist, transfers and sit to stand with CGA even from low surfaces. She needs occasional cues for hand placement. Gait Does the Patient Walk?: Yes Mode of Locomotion: Walk Anticipated Mode of Locomotion: Walk Gait (FIM): 4 Walk 10 feet (QC): 4 Walk 50 ft with 2 Turns(QC): 4 Walk 150 ft (QC): 4 Walking 10ft/uneven surface-QC: 4 Distance: 150'x2 Gait Level of Assist: 4 Gait Persons Needed: 1 Gait Assistive Device: FWW Comments/Gait Description Patient can ambulate 150' with a rolling walker with CGA, including 10' over an uneven surface and 50' with at least 2 turns of 90 degrees. She has antalgic ambulation and decreased left knee flexion, small steps. Wheelchair Training Does the Pt Use a Wheelchair?: No Stairs Stairs (FIM): 1 #of Steps: 1 Level of Assist: 4 1 Step (curb) (QC): 3 4 Steps (QC): 88 Assistive Device: Walker 12 Steps (QC): 88 Patient can go up and down 1 steps using a rolling walker with min assist. She needs cues for safety and foot placement. Balance Sitting Static: Normal Sitting Dynamic: Normal Standing Static: Fair Standing Dynamic: Fair Picking up an Object (QC): 88 Treatment supine exercises (AP x20, QS x10, GS x10), LAQ left side for 5 min Assessment/Needs Patient has impaired mobility, strength, endurance post left hip fracture. Rehab Potential: Fair PT Short Term Goals Short Term Goals Time Frame: May 15, 2017 Transfers (B,C,W/C) (FIM): 4 (CGA) Gait (FIM): 5 Gait Distance Comment: 200' Gait Level of Assist: 5 PT Business Analyst Project Manager Goals Mcc Goals PT Business Analyst Project Manager Goals Time Frame: May 29, 2017 Transfers (B,C,W/C) (FIM): 5 Sit to Lying (QC): 4 Lying-Sitting on Side/Bed(QC): 4 Sit to Stand (QC): 4 Rollin Roll Left to Right (QC): 4 Chair/Ysc-kj-Awoki Xfer(QC): 4 Car Transfer (QC): 4 Gait (FIM): 5 Distance: 300' Walk 10 feet (QC): 4 Walk 10ft-Uneven Surface(QC): 4 Walk 50ft with 2 Turns (QC): 4 Walk 150 ft (QC): 4 Gait Level of Assist: 5 Gait Assistive Device: FWW Stairs (FIM): 2 # of Steps: 4 1 Step (curb) (QC): 4 Stairs Level Of Assist: 4 (CGA) PT Plan Problem List Problem List: Activity Tolerance, Functional Strength, Safety, Balance, Gait, Transfer, Bed Mobility, ROM Treatment/Plan Treatment Plan: Continue Plan of Care Treatment Plan: Bed Mobility, Education, Functional Activity Issac, Functional Strength, Group Therapy, Gait, Safety, Therapeutic Exercise, Transfers Treatment Duration: May 29, 2017 Frequency: At least 5 of 7 days/Wk (IRF) Estimated Hrs Per Day: 1.5 hours per day Patient and/or Family Agrees t: Yes Safety Risks/Education Patient Education: Gait Training, Transfer Techniques, Steps, Reviewed Precautions, Correct Positioning, Safety Issues Teaching Recipient: Patient Teaching Methods: Demonstration, Discussion Response to Teaching: Reinforcement Needed Discharge Recommendations Plan Patient will perform bed mobility and transfer training, balance and endurance training, functional strengthening, stair training, gait training, and education , to improve functional mobility and independence at home. Therapy D/C Recommendations: Home w/ Family Support Time/GCodes Time In: 1050 Time Out: 1150 Total Billed Treatment Time: 60 Total Billed Treatment 1 visit EVM 30' EX 15' GT 15' PRISCILLA SULLIVAN PT May 08, 2017 11:48
--- NOTE | 2017-05-08 12:12 | PM&R Post Admission Assessment ---
Post Admission Physician Asses The preadmission screen agrees with the post admission assessment that the patient is a good candidate for inpatient rehabilitation. The patient will have a comprehensive program of inpatient rehabilitation with a goal of maximizing level of functional independence prior to discharge home with [facility]. The patient will have PT/OT ninety minutes per day, each discipline , five days a week for gait, strengthening, conditioning, balance, ADLs, any patient/family/caregiver training as necessary. Speech therapy to do cognitive assessment and treat as indicated. Rehabilitation nursing to assist with bowel, bladder, skin, wound care, medication administration, pain management. Reading Aide to assist with discharge planning, community reentry. SCD's for DVT prophylaxis. She appears to be well motivated to participate in three hours of therapy a day. She should be able to tolerate three hours of therapy a day from a medical and surgical standpoint. She should benefit from the three hours of therapy a day. She has a reasonable discharge plan, reasonable discharge rehabilitation goals and a supportive family. She has various comorbidities that need to be closely monitored with medications and treatments adjusted on a daily basis as needed. These include: DM HTN Chronic anticoagulation due to hx of DVT Barriers to discharge for this patient who had been independent prior to this are for her to be modified independent to supervision for ADLs and mobility skills prior to discharge home with [facility], so as to lessen the burden of the caregivers. The patient had been Independent prior to this but used a st cane for community ambulation Risks for this patient include: 1. Fall 2. Fracture 3. DVT 4. Pulmonary embolism 5. Wound infection 6. Skin breakdown 7. Contractures 8. Poorly controlled pain 9. Urinary retention 10. UTI 11. Respiratory infection 12. Aspiration 13. poorly controlled DM 14. poorly controlled HTN 15. Supratherapeutic INR Estimated Length of Stay: 18 days Prognosis: Rehab prognosis appears good for goal of discharge home with [facility] modified independent to supervision for ADLs and mobility skills. JAREN ADDISON MD May 08, 2017 12:12
[2017-05-08] MEDS: DICLOFENAC 1% GEL 100 GM (VOLTAREN) TUBE TOP SCH ×3 (12:23→20:40)
[2017-05-08] MEDS: ENOXAPARIN 40 MG/0.4 ML (LOVENOX) SYR SC SCH (12:24)
[2017-05-08] MEDS ORDERED: LOPERAMIDE 2 MG (IMODIUM) CAP PO NR (12:30)
--- NOTE | 2017-05-08 12:34 | Progress Note (SOAP) ---
Subjective Date Seen by Provider: May 08, 2017 Time Seen by Provider: 12:30 Subjective/Events-last exam Fwup Left hip fracture, DM--insulin requiring, Chronic coumadin therapy, Hypertension. Having diarrhea. C. Diff negative. Objective Exam Vital Signs Date Time Temp Pulse Resp B/P (MAP) Pulse Ox O2 Delivery O2 Flow Rate FiO2 05/08/17 11:53 Room Air 05/08/17 11:46 98.6 60 18 129/72 (91) 98 Room Air Capillary Refill : Less Than 3 Seconds General Appearance: No Apparent Distress Neck: Supple Respiratory: Lungs Clear Cardiovascular: Regular Rate, Rhythm Gastrointestinal: normal bowel sounds, non tender, soft Extremity: Non Tender, No Calf Tenderness, Pedal Edema (chronic) Neurologic/Psychiatric: Alert, Oriented x3 Assessment/Plan Assessment/Plan Assess & Plan/Chief Complaint 1. Left intertrochanteric hip fracture--S/P ORIF, pain control, PT/OT, Transferred to Rehab today 2. Chronic Coumadin Therapy for Chronic DVT of LLE--restarted coumadin but will decrease dose to 4mg and continue with lovenox and monitor PT/INR 3. Hypertension--back on home meds 4. Diabetes mellitus--insulin requiring--on levemir and SSI 5. GERD--resumed protonix 6. Memory Loss--recent CT scan shows microvascular changes with history of lacunar infarcts and has a family history of alzheimers--start aricept 7. Acute on Chronic Anemia from recent surgery--S/P transfusion, monitor H/H 8. Left knee pain/OA--stable 9. Right Hip Pain--likely compensatory from left hip fracture 10. Diarrhea--hold stool softeners, add lactobacillus and immodium Clinical Quality Measures DVT/VTE Risk/Contraindication: Risk Factor Score Per Nursin RFS Level Per Nursing on Admit: 4+=Very High SHAKEEL BRUCE DO May 08, 2017 12:34
--- NOTE | 2017-05-08 12:54 | Occupational Therapy Eval ---
OT Evaluation-General/PLF Medical Diagnosis Admission Date May 08, 2017 at 10:43 Medical Diagnosis: Hip Fracture Onset Date: May 01, 2017 Therapy Diagnosis Therapy Diagnosis: Decreased self care skills Height/Weight Height (Feet): 5 Height (Inches): 2.00 Weight (Pounds): 189 Weight (Ounces): 4.0 Precautions Precautions/Isolations: Fall Prevention, Standard Precautions Referral Physician: Charlie Medical History Pertinent Medical History: CVA, DM, HTN Additional Medical History chronic UTI, cervical cancer removed Current History Pt had fall with left hip fracture, now s/p surgical intervention Social History Home: Single Level Current Living Status: Alone Entry Into Home: Stairs With Railing Steps Into Home: 1 ADL-Prior Level of Function ADL PLOF Comments Pt reports being independent with basic self care and mobility. Uses cane as needed for mobility. Pt receives meals on wheels. Does not drive- sister or children provide transportation DME/Equipment: Grab Bars, Shower Drive Self: No OT Current Status Subjective Pt agreeable to therapy this am. Reports 4/10 left hip pain. Mental Status/Objective Patient Orientation: Person, Place, Situation Current Glasses/Contacts: Yes Hearing Aids: No Dentures/Partials: Yes Hand Dominance: Right Upper Extremity ROM Grossly WFL Upper Extremity Coordination Intact Upper Extremity Sensation Intact per pt report Upper Extremity Strength Grossly 4-/5 ADL-Treatment ADL-Current Pt transferred to [facility] with assist from nursing. Pt requires assist for toileting hygiene. Sit to stand from [facility] and transfer to chair with minimal assistance. Pt declined shower today, states she will try one tomorrow. Agrees to sponge bath. Pt able to complete upper body bathing with set up. Pt able to wash bilateral upper legs, but requires assist for remainder of lower body bathing. Don sports bra with minimal assistance to pull down in back. Don pullover shirt with set up. Assist required to don FELIPE hose. Pt requires assist to start Depends and pants over feet and pull up to knees. Stood with minimal assistance. Pt requires assist to pull pants up in back. Pt unable to reach feet to don socks, requires assist to complete task. Increased time required for ADLs. Pt declined grooming at this time. Pt sitting in chair with needs met after session. Functional [place] Measure 0=Not Assessed/NA 4=Minimal Assistance 1=Total Assistance 5=Supervision or Setup 2=Maximal Assistance 6=Modified [place] 3=Moderate Assistance 7=Complete IndependenceIRFPAI Quality Coding Scale 6 Independent with activity with or without an assistive device 5 Patient requires set up or clean up by helper. Patient completes activity by themselves 4 Supervision or touching assist (CGA). [place] provide cues , steadying assist 3 The helper provides less than half the effort to complete the activity 2 The helper provides more than half the effort to complete the activity 1 Dependent. The helper does all the effort to complete an activity 7 Patient refused to complete or attempt activity 9 The patient did not perform the activity before the current illness or injury 88 Not attempted due to Medical conditions or safety concerns Eating (FIM): 6 (Pt reports feeding self and managing containers without assistance) Eating (QC): 6 Bathing (FIM): 3 Shower/Bathe Self (QC): 3 Upper Body Dressing (FIM): 4 Upper Body Dressing (QC): 3 Lower Body Dressing (FIM): 2 Lower Body Dressing (QC): 2 On/Off Footwear (QC): 1 Toileting (FIM): 2 Toileting Hygiene (QC): 2 Toilet/Commode Transfer (FIM): 4 Toilet Transfer (QC): 3 Education OT Patient Education: Rehab process Teaching Recipient: Patient Teaching Methods: Discussion Response to Teaching: Verbalize Understanding OT Short Term Goals Short Term Goals Time Frame: May 15, 2017 Bathing(FIM): 4 Upper Body Dressing(FIM): 5 Lower Body Dressing(FIM): 4 Toileting(FIM): 4 Toilet/Commode Transfer(FIM): 5 Shower Transfer(FIM): 4 Additional Short Term Goals: 1-Demonstrate ADL Tasks, 2-Verbalize Understanding , 3-ImproveStrength/Issac 1=Demonstrate adherence to instructed precautions during ADL tasks. 2=Patient will verbalize/demonstrate understanding of assistive devices/ modifications for ADL. 3=Patient will improve strength/tolerance for activity to enable patient to perform ADL's. OT Ice Cream Man Goals Assisted Goals Time Frame: May 29, 2017 Eating (FIM): 6 Eating (QC): 6 Groomin Oral Hygiene (QC): 6 Bathing(FIM): 5 Shower/Bathe Self (QC): 5 Upper Body Dressing(FIM): 6 Upper Body Dressing (QC): 6 Lower Body Dressing(FIM): 5 Lower Body Dressing (QC): 5 On/Off Footwear (QC): 5 Toileting(FIM): 6 Toileting Hygiene (QC): 6 Toilet/Commode Transfer(FIM): 6 Toilet/Commode Transfer (QC): 6 Shower Transfer(FIM): 5 Additional Goals: 1-Demonstrate ADL Tasks, 2-Verbalize Understanding, 3- ImproveStrength/Issac 1=Demonstrate adherence to instructed precautions during ADL tasks. 2=Patient will verbalize/demonstrate understanding of assistive devices/ modifications for ADL. 3=Patient will improve strength/tolerance for activity to enable patient to perform ADL's. Goals established to promote increased independence and allow safe discharge plan. OT Education/Plan Problem List/Assessment Assessment: Decreased Activ Tolerance, Decreased UE Strength, Dependent Transfers, Impaired I ADL's, Impaired Self-Care Skills Pt admitted to ARU following acute hospitalization for left hip fracture. Pt demonstrates decreased mobility, strength, ADL functioning, and activity tolerance. Pt to benefit from skilled OT intervention for ADL training, transfers, strengthening, adaptive equipment training, and home safety education to maximize level of independence and allow safe discharge. Discharge Recommendations Plan/Recommendations: Continue POC Treatment Plan/Plan of Care Treatment,Training & Education: Yes Patient would benefit from OT for education, treatment and training to promote independence in ADL's, mobility, safety and/or upper extremity function for ADL' s. Plan of Care: ADL Retraining, Functional Mobility, Group Exercise/Act as Ind, UE Funct Exercise/Act Treatment Duration: May 29, 2017 Frequency: At least 5 of 7 days/Wk (IRF) Estimated Hrs Per Day: 1.5 hours per day Agreement: Yes Rehab Potential: Fair Time/GCodes Start Time: 09:35 Stop Time: 10:35 Total Time Billed (hr/min): 60 Billed Treatment Time 1 visit, EVM(15minutes), ADLx3(45minutes) BRIGHT SANTIAGO OT May 08, 2017 12:54
--- NOTE | 2017-05-08 13:10 | HISTORY AND PHYSICAL ---
DATE OF SERVICE: 05/08/2017 CHIEF COMPLAINT: Difficulty with walking. HISTORY OF PRESENT ILLNESS: The patient is a 67-year-old female who has been independent living in her own home in [place] when she got up to go to the bathroom, lost her footing, fell on her left hip. She was assessed at [place] [facility] and she was found to have a left hip fracture. She was transferred to [facility] for surgical evaluation. She was admitted to the service of Dr. Ventura, orthopedics, for ORIF left intertrochanteric femur fracture. She had a repair and afterwards her Coumadin was resumed. Dr. Russo, PCP, followed her for medical concerns. She was also found to have a UTI and this was treated.She had pain in left Knee and Xray revealed DJD Voltaren gel ordered.She had transfusion of 2 units PRBCS post op for acute on chronic anemia. Medications were adjusted for her diabetes with the patient placed on sliding scale insulin. The patient had a decline in her functional independence postoperatively and was referred to inpatient rehabilitation unit. Currently, she is mod assist for transfers, min assist for gait with a front wheel walker. She is weightbearing as tolerated. She is cognitively intact, has been seen by speech therapy and they have signed off.She is Modified Independent for eating She is Mod assist for Upper body dressing and Max assist for lower body dressing.She is mod assist for Toilet transfers. PAST MEDICAL HISTORY: Stroke without residual approximately 20 years ago, diabetes mellitus, insulin-dependent, hypertension, chronic UTIs.DJD left knee PAST SURGICAL HISTORY: Denies any other prior joint or spinal surgery. Bladder surgery, , cholecystectomy, hysterectomy. ALLERGIES: PENICILLIN, HYDROCODONE. FAMILY HISTORY: Asthma, diabetes mellitus and hypertension. SOCIAL HISTORY: She is , lives alone, had been independent, does use a cane for community ambulation, has supportive family nearby. REVIEW OF SYSTEMS: History of DVT, chronically anticoagulated, on Coumadin. Again complains of hip pain 9/10 with ambulation. MEDICATIONS: Protonix 40 mg p.o. daily, Lipitor 10 mg p.o. at bedtime, Celexa 20 mg p.o. at bedtime, Coreg 25 mg p.o. b.i.d., Desenex under abdominal pannus b.i.d., Senokot-S 2 tablets p.o. b.i.d., Levemir 10 units subcutaneously at bedtime, Coumadin 5 mg p.o. daily, calcium with vitamin D 600 mg p.o. b.i.d., metformin 1000 mg p.o. b.i.d., Humulin R sliding scale insulin regimen C, Voltaren gel apply sparingly to affected area q.i.d., Lovenox 40 mg subcutaneous daily for DVT prophylaxis, Tramadol 50 mg p.o. t.i.d. p.r.n. moderate pain. PHYSICAL EXAMINATION: GENERAL: Significant for a pleasant female appearing stated age, lying on mat in gym, in no acute distress. VITAL SIGNS: Blood pressure is 129/72, respirations 18, pulse 60. She is afebrile. O2 sat 98% on room air. HEENT: Vision, speech, hearing grossly intact. No oral lesion is noted. NECK: Supple without mass. HEART: Regular rhythm. CHEST: Clear. ABDOMEN: Soft, nontender, bowel sounds present. EXTREMITIES: Trace edema left ankle, no calf tenderness. MUSCULOSKELETAL: The patient has functional active range of motion both upper limbs and right lower limb. Left lower limb limited to hip due to recent fracture repair. NEUROLOGIC: Cognition grossly intact. Sensation grossly intact to touch. Strength is good minus both upper limbs and right lower limb. Left lower limb-she is able to plantar and dorsiflex at the ankle and extend the left knee. IMPRESSION: 1. Ambulatory dysfunction secondary to fall with resulting left intertrochanteric femur fracture status post orif with Dr. Ventura, orthopedics. 2. Urinary tract infection, treated. 3. Diabetes mellitus-insulin requiring. 4. Hypertension, controlled with medication. 5. History of deep venous thrombosis, chronically anticoagulated on Coumadin. 6. DJD left Knee 7. Postop anemia s/p transfusion 8. Prior lacunar infarcts as per CT Head 9. GERD on PPI PLAN: The patient will have a comprehensive program of inpatient orthopedic rehabilitation with goal of maximizing level of functional independence prior to discharge home with family and home health care. The patient will have PT, OT 90 minutes per day each discipline, 5 days a week with plan of care as per post-admission physician evaluation, please see that separate document. Speech therapy has done. Cognitive assessment found the patient to be intact and signed off. Rehabilitation nursing assist with bowel, bladder, skin, wound care, medication administration, pain management and protective services social worker with discharge planning, community reentry. Follow up with Dr. Russo and orthopedics as per their schedule. Monitor Accu-Cheks and adjust medications as necessary. Monitor INR, adjust medication as needed. services host to assist with discharge planning, community reentry. Estimated length of stay 18 days. PROGNOSIS: Rehab prognosis appears good for goal of discharging home with family and home health care, modified independent to supervision for ADLs and mobility skills. DIET: Carb consistent. CODE STATUS: DNR. Job ID: [id number] DocumentID: [id number] Dictated Date: 05/08/2017 12:23:20 Director Data Management Date: 05/08/2017 13:09:08 Dictated By: JAREN ADDISON MD MTDD
[2017-05-08] MEDS ORDERED: ACET-93 PO (13:11)
--- NOTE | 2017-05-08 14:07 | Occupational Ther Daily Note ---
OT Current Status-Daily Note Subjective Pt in bed, agrees to treatment. Mental Status/Objective Functional [place] Measure 0=Not Assessed/NA 4=Minimal Assistance 1=Total Assistance 5=Supervision or Setup 2=Maximal Assistance 6=Modified [place] 3=Moderate Assistance 7=Complete Pep ADL-Treatment Pt supine to sit with moderate assistance and cues for technique. Sit to stand and transfer to chair with minimal assistance using FWW. Instructed pt in use of adaptive equipment for LE dressing. Pt doffed socks with SBA using dressing stick. Pt donned socks with minimal assistance using sock aid. Skilled cues for use. Functional [place] Measure 0=Not Assessed/NA 4=Minimal Assistance 1=Total Assistance 5=Supervision or Setup 2=Maximal Assistance 6=Modified [place] 3=Moderate Assistance 7=Complete IndependenceIRFPAI Quality Coding Scale 6 Independent with activity with or without an assistive device 5 Patient requires set up or clean up by helper. Patient completes activity by themselves 4 Supervision or touching assist (CGA). [place] provide cues , steadying assist 3 The helper provides less than half the effort to complete the activity 2 The helper provides more than half the effort to complete the activity 1 Dependent. The helper does all the effort to complete an activity 7 Patient refused to complete or attempt activity 9 The patient did not perform the activity before the current illness or injury 88 Not attempted due to Medical conditions or safety concerns Other Treatment Pt completed bilateral UE exercises to increase strength needed for ADLs and transfers. Pt performed four UE exercises x15 reps with mild resistance (yellow ) theraband. Rest breaks taken between exercises. Occasional cues for proper exercise technique. Pt sitting in chair with needs met after session. OT Short Term Goals Short Term Goals Time Frame: May 15, 2017 Bathing(FIM): 4 Upper Body Dressing(FIM): 5 Lower Body Dressing(FIM): 4 Toileting(FIM): 4 Toilet/Commode Transfer(FIM): 5 Shower Transfer(FIM): 4 Additional Short Term Goals: 1-Demonstrate ADL Tasks, 2-Verbalize Understanding , 3-ImproveStrength/Issac 1=Demonstrate adherence to instructed precautions during ADL tasks. 2=Patient will verbalize/demonstrate understanding of assistive devices/ modifications for ADL. 3=Patient will improve strength/tolerance for activity to enable patient to perform ADL's. OT Usp Goals Usp Goals Time Frame: May 29, 2017 Eating (FIM): 6 Eating (QC): 6 Groomin Oral Hygiene (QC): 6 Bathing(FIM): 5 Shower/Bathe Self (QC): 5 Upper Body Dressing(FIM): 6 Upper Body Dressing (QC): 6 Lower Body Dressing(FIM): 5 Lower Body Dressing (QC): 5 On/Off Footwear (QC): 5 Toileting(FIM): 6 Toileting Hygiene (QC): 6 Toilet/Commode Transfer(FIM): 6 Toilet/Commode Transfer (QC): 6 Shower Transfer(FIM): 5 Additional Goals: 1-Demonstrate ADL Tasks, 2-Verbalize Understanding, 3- ImproveStrength/Issac 1=Demonstrate adherence to instructed precautions during ADL tasks. 2=Patient will verbalize/demonstrate understanding of assistive devices/ modifications for ADL. 3=Patient will improve strength/tolerance for activity to enable patient to perform ADL's. OT Education/Plan Discharge Recommendations Plan/Recommendations: Continue POC Treatment Plan/Plan of Care Patient would benefit from OT for education, treatment and training to promote independence in ADL's, mobility, safety and/or upper extremity function for ADL' s. Plan of Care: ADL Retraining, Functional Mobility, Group Exercise/Act as Ind, UE Funct Exercise/Act Treatment Duration: May 29, 2017 Frequency: At least 5 of 7 days/Wk (IRF) Estimated Hrs Per Day: 1.5 hours per day Agreement: Yes Rehab Potential: Fair Time/GCodes Start Time: 13:30 Stop Time: 14:00 Total Time Billed (hr/min): 30 Billed Treatment Time 1visit, ADL(15minutes), EX(15minutes) BRIGHT SANTIAGO OT May 08, 2017 14:07
[2017-05-08] MEDS ORDERED: inSUlin (REGULAR) HUMAN 1 UNIT/0.01 ML (CHARGE PER UNIT) SC ONE (14:15)
--- NOTE | 2017-05-08 15:23 | Physical Therapy Daily Note ---
PT Daily Note-Current Subjective Patient in recliner pre tx, agrees to PT, no complaints of pain. Appearance Patient in bed post tx with nurse call, phone, tray, all needs met. Mental Status Patient Orientation: Person, Place, Situation Transfers Functional [place] Measure 0=Not Assessed/NA 4=Minimal Assistance 1=Total Assistance 5=Supervision or Setup 2=Maximal Assistance 6=Modified [place] 3=Moderate Assistance 7=Complete IndependenceIRFPAI Quality Coding Scale 6 Independent with activity with or without an assistive device 5 Patient requires set up or clean up by helper. Patient completes activity by themselves 4 Supervision or touching assist (CGA). [place] provide cues , steadying assist 3 The helper provides less than half the effort to complete the activity 2 The helper provides more than half the effort to complete the activity 1 Dependent. The helper does all the effort to complete an activity 7 Patient refused to complete or attempt activity 9 The patient did not perform the activity before the current illness or injury 88 Not attempted due to Medical conditions or safety concerns Transfers (B, C, W/C) (FIM): 4 Scootin Rollin Supine to/from Sit: 4 Sit to/from Stand: 4 Bed to/from Chair: 4 transfers, CGA, bed mobility sit to supine min assist. Weight Bearing Right Lower Extremity: Right Full Weight Bearing Left Lower Extremity: Left Weight Bearing/Tolerated Gait Training Gait (FIM): 4 Distance: 150'x2 Gait Level of Assist: 4 (CGA) Gait Persons Needed: 1 Gait Assistive Device: FWW slow, antalgic, decreased left knee flexion Exercises NuStep Minutes: 10 NuStep Workload: 3 Treatments bed mobility and transfers, ambulation, functional strengthening Assessment Current Status: Fair Progress improving endurance and transfers PT Short Term Goals Short Term Goals Time Frame: May 15, 2017 Gait (FIM): 5 Gait Distance Comment: 200' Gait Level of Assist: 5 PT Correction Goals Buttonhole Maker Goals PT Correction Goals Time Frame: May 29, 2017 Transfers (B,C,W/C) (FIM): 5 Sit to Lying (QC): 4 Lying-Sitting on Side/Bed(QC): 4 Sit to Stand (QC): 4 Rollin Roll Left to Right (QC): 4 Chair/Aww-lo-Rgrqq Xfer(QC): 4 Car Transfer (QC): 4 Gait (FIM): 5 Distance: 300' Walk 10 feet (QC): 4 Walk 10ft-Uneven Surface(QC): 4 Walk 50ft with 2 Turns (QC): 4 Walk 150 ft (QC): 4 Gait Level of Assist: 5 Gait Assistive Device: FWW Stairs (FIM): 2 # of Steps: 4 1 Step (curb) (QC): 4 Stairs Level Of Assist: 4 (CGA) PT Plan Problem List Problem List: Activity Tolerance, Functional Strength, Safety, Balance, Gait, Transfer, Bed Mobility, ROM Treatment/Plan Treatment Plan: Continue Plan of Care Treatment Plan: Bed Mobility, Education, Functional Activity Issac, Functional Strength, Group Therapy, Gait, Safety, Therapeutic Exercise, Transfers Treatment Duration: May 29, 2017 Frequency: At least 5 of 7 days/Wk (IRF) Estimated Hrs Per Day: 1.5 hours per day Patient and/or Family Agrees t: Yes Safety Risks/Education Patient Education: Gait Training, Transfer Techniques, Correct Positioning, Disease Process Teaching Recipient: Patient Teaching Methods: Demonstration, Discussion Response to Teaching: Reinforcement Needed Time/GCodes Time In: 1450 Time Out: 1520 Total Billed Treatment Time: 30 Total Billed Treatment 1 visit EX 10' GT 20' PRISCILLA SULLIVAN PT May 08, 2017 15:23
[2017-05-08] MEDS: CALCIUM CARB + VIT D 600 MG (CALCARB + D) TAB PO SCH (16:13)
[2017-05-08] MEDS: LACTOBACILLUS Acidoph/Bulgar (LACTINEX/FLORANEX) TAB PO SCH (16:13)
[2017-05-08] MEDS ORDERED: metFORMIN 500 MG (GLUCOPHAGE) TAB PO SCH (17:00)
[2017-05-08] MEDS: inSUlin (REGULAR) HUMAN 1 UNIT/0.01 ML (CHARGE PER UNIT) SC SCH ×2 (17:20→20:37)
[2017-05-08 17:33] VITALS: BP 157/81
[2017-05-08] MEDS ORDERED: warFARin 2 MG (COUMADIN) TAB PO SCH (18:00)
[2017-05-08] MEDS ORDERED: warFARin 5 MG (COUMADIN) TAB PO SCH (18:00)
[2017-05-08] MEDS: ATORVASTATIN 10 MG (LIPITOR) TABLET PO SCH (20:37)
[2017-05-08] MEDS: CARVEDILOL 12.5 MG (COREG) TABLET PO SCH (20:37)
[2017-05-08] MEDS: DONEPEZIL 5 MG (ARICEPT) TAB PO SCH (20:37)
[2017-05-08] MEDS: MICONAZOLE 2% POWDER (DESENEX AF) 90 GM TOP SCH (20:40)
[2017-05-08] MEDS ORDERED: SENNA W/DOCUSATE (SENOKOT S) TABLET PO SCH (21:00)
[2017-05-08] MEDS: inSUlin DETERMIR 1 UNIT/0.01 ML (LEVEMIR) CHARGE PER UNIT SQ SCH (21:59)
[2017-05-09] MEDS: inSUlin DETERMIR 1 UNIT/0.01 ML (LEVEMIR) CHARGE PER UNIT SQ SCH ×2 (00:16→21:12)
[2017-05-09 05:25] VITALS: BP 160/86
[2017-05-09 05:33] LABS: INR 3.7 (0.8-1.4); PROTHROMBIN TIME PATIENT 36.1 SEC (12.2-14.7)
[2017-05-09] MEDS: CALCIUM CARB + VIT D 600 MG (CALCARB + D) TAB PO SCH ×2 (06:05→17:07)
[2017-05-09] MEDS: LACTOBACILLUS Acidoph/Bulgar (LACTINEX/FLORANEX) TAB PO SCH ×3 (06:05→16:55)
[2017-05-09] MEDS: PANTOPRAZOLE 40 MG (PROTONIX) TAB PO SCH (06:05)
[2017-05-09] MEDS: inSUlin (REGULAR) HUMAN 1 UNIT/0.01 ML (CHARGE PER UNIT) SC SCH ×4 (06:22→21:11)
--- NOTE | 2017-05-09 08:28 | Occupational Ther Daily Note ---
OT Current Status-Daily Note Subjective Pt lying in bed finishing breakfast. Pt agreed to therapy. No c/o pain at this time. Mental Status/Objective Patient Orientation: Person, Place, Time, Situation Functional [employer] Measure 0=Not Assessed/NA 4=Minimal Assistance 1=Total Assistance 5=Supervision or Setup 2=Maximal Assistance 6=Modified [place] [employer] 3=Moderate Assistance 7=Complete [place] [employer] Attachments: IV ADL-Treatment Functional [place] [employer] Measure 0=Not Assessed/NA 4=Minimal Assistance 1=Total Assistance 5=Supervision or Setup 2=Maximal Assistance 6=Modified [place] [employer] 3=Moderate Assistance 7=Complete IndependenceIRFPAI Quality Coding Scale 6 Independent with activity with or without an assistive device 5 Patient requires set up or clean up by helper. Patient completes activity by themselves 4 Supervision or touching assist (CGA). [place] provide cues , steadying assist 3 The helper provides less than half the effort to complete the activity 2 The helper provides more than half the effort to complete the activity 1 Dependent. The helper does all the effort to complete an activity 7 Patient refused to complete or attempt activity 9 The patient did not perform the activity before the current illness or injury 88 Not attempted due to Medical conditions or safety concerns Grooming (FIM): 5 (SBA standing at sink completed by self.) Oral Hygiene (QC): 4 Bathing (FIM): 4 (Using grabbar, hand held shower and shower bench pt is able to complete all areas except lower legs and feet. Long handle sponges not available.) Bathing Location: L Arm, R Arm, L Upper Leg, R Upper Leg, Chest, Abdomen, Buttocks, Perineal Area Shower/Bathe Self (QC): 3 Upper Body (FIM): 5 (After set up, pt is able to complete by self.) Upper Body Dressing (QC): 5 Lower Body Dressing (FIM): 4 (Using AE, pt is able to complete lower body dressing with verbal cues to use equipment. Assist to don compression stockings. SBA in standing to hike pants over hips.) Lower Body Dressing (QC): 3 On/Off Footwear (QC): 3 Shower Transfer(FIM): 4 (CGA using FWW, grabbars and shower bench.) Other Treatment Pt then was able to complete 3 UE light resistance theraband exercises 1 set 10 reps. After therapy, pt sitting in recliner with call light/phone in reach. All needs met in room. Education OT Patient Education: Exercise program, Use of adapted equipment Teaching Recipient: Patient Teaching Methods: Demonstration, Discussion Response to Teaching: Return Demonstration, Reinforcement Needed OT Short Term Goals Short Term Goals Time Frame: May 15, 2017 Bathing(FIM): 4 Upper Body Dressing(FIM): 5 Lower Body Dressing(FIM): 4 Toileting(FIM): 4 Toilet/Commode Transfer(FIM): 5 Shower Transfer(FIM): 4 Additional Short Term Goals: 1-Demonstrate ADL Tasks, 2-Verbalize Understanding , 3-ImproveStrength/Issac 1=Demonstrate adherence to instructed precautions during ADL tasks. 2=Patient will verbalize/demonstrate understanding of assistive devices/ modifications for ADL. 3=Patient will improve strength/tolerance for activity to enable patient to perform ADL's. OT Usp Goals Usp Goals Time Frame: May 29, 2017 Eating (FIM): 6 Eating (QC): 6 Groomin Oral Hygiene (QC): 6 Bathing(FIM): 5 Shower/Bathe Self (QC): 5 Upper Body Dressing(FIM): 6 Upper Body Dressing (QC): 6 Lower Body Dressing(FIM): 5 Lower Body Dressing (QC): 5 On/Off Footwear (QC): 5 Toileting(FIM): 6 Toileting Hygiene (QC): 6 Toilet/Commode Transfer(FIM): 6 Toilet/Commode Transfer (QC): 6 Shower Transfer(FIM): 5 Additional Goals: 1-Demonstrate ADL Tasks, 2-Verbalize Understanding, 3- ImproveStrength/Issac 1=Demonstrate adherence to instructed precautions during ADL tasks. 2=Patient will verbalize/demonstrate understanding of assistive devices/ modifications for ADL. 3=Patient will improve strength/tolerance for activity to enable patient to perform ADL's. OT Education/Plan Discharge Recommendations Plan/Recommendations: Continue POC Treatment Plan/Plan of Care Patient would benefit from OT for education, treatment and training to promote independence in ADL's, mobility, safety and/or upper extremity function for ADL' s. Plan of Care: ADL Retraining, Functional Mobility, Group Exercise/Act as Ind, UE Funct Exercise/Act Treatment Duration: May 29, 2017 Frequency: At least 5 of 7 days/Wk (IRF) Estimated Hrs Per Day: 1.5 hours per day Agreement: Yes Rehab Potential: Fair Time/GCodes Start Time: 07:00 Stop Time: 08:30 Total Time Billed (hr/min): 90 Billed Treatment Time 1 visit-ADL 5 (75 min) EX 1 (15 min) LAYA RICE May 09, 2017 08:28
[2017-05-09] MEDS: DICLOFENAC 1% GEL 100 GM (VOLTAREN) TUBE TOP SCH ×4 (09:30→21:12)
[2017-05-09] MEDS: CARVEDILOL 12.5 MG (COREG) TABLET PO SCH ×2 (09:31→21:11)
[2017-05-09] MEDS: MICONAZOLE 2% POWDER (DESENEX AF) 90 GM TOP SCH ×2 (09:31→21:12)
--- NOTE | 2017-05-09 10:01 | Physical Therapy Daily Note ---
PT Daily Note-Current Subjective Pt. agrees to Rx. Rates her left hip and knee pain at 6/10. Requests pain meds as well as voltaren cream and ice pack. States she has had bilat knee problems and pain for quite some time and at this time her knee is hurting worse than her hip on left. Pain Numeric Pain Scale: 6 Location: Left Location Body Site: Knee Pain Description: Stabbing Mental Status Patient Orientation: Normal For Age Transfers Functional [place] Measure 0=Not Assessed/NA 4=Minimal Assistance 1=Total Assistance 5=Supervision or Setup 2=Maximal Assistance 6=Modified [place] 3=Moderate Assistance 7=Complete IndependenceIRFPAI Quality Coding Scale 6 Independent with activity with or without an assistive device 5 Patient requires set up or clean up by helper. Patient completes activity by themselves 4 Supervision or touching assist (CGA). [place] provide cues , steadying assist 3 The helper provides less than half the effort to complete the activity 2 The helper provides more than half the effort to complete the activity 1 Dependent. The helper does all the effort to complete an activity 7 Patient refused to complete or attempt activity 9 The patient did not perform the activity before the current illness or injury 88 Not attempted due to Medical conditions or safety concerns Transfers (B, C, W/C) (FIM): 4 Scootin Rollin Supine to/from Sit: 4 Sit to/from Stand: 5 Weight Bearing Right Lower Extremity: Right Full Weight Bearing Left Lower Extremity: Left Weight Bearing/Tolerated Gait Training Does the Patient Walk?: Yes Gait (FIM): 5 Distance (FIM): 3=150 ft (150x2) Gait Level of Assist: 5 Gait Persons Needed: 1 Gait Assistive Device: FWW slow and careful, decreased step length Exercises Supine Ex: Ankle pumps, Quad Set, Rolling, Glut sets, Heel Slides, Short Arc Quads, Scooting, Hip abd/add Supine Reps: 20 Seated Therapy Exercises: Ankle pumps, Sit to stand, Long arc quads, Hip abd/ add Seated Reps: 20 Treatments ice pack given after Rx for left hip/knee use Assessment Current Status: Good Progress PT Short Term Goals Short Term Goals Time Frame: May 15, 2017 Gait (FIM): 5 Gait Distance Comment: 200' Gait Level of Assist: 5 PT Penitentiary Goals Penitentiary Goals PT Penitentiary Goals Time Frame: May 29, 2017 Transfers (B,C,W/C) (FIM): 5 Sit to Lying (QC): 4 Lying-Sitting on Side/Bed(QC): 4 Sit to Stand (QC): 4 Rollin Roll Left to Right (QC): 4 Chair/Tbs-ll-Ivlan Xfer(QC): 4 Car Transfer (QC): 4 Gait (FIM): 5 Distance: 300' Walk 10 feet (QC): 4 Walk 10ft-Uneven Surface(QC): 4 Walk 50ft with 2 Turns (QC): 4 Walk 150 ft (QC): 4 Gait Level of Assist: 5 Gait Assistive Device: FWW Stairs (FIM): 2 # of Steps: 4 1 Step (curb) (QC): 4 Stairs Level Of Assist: 4 (CGA) PT Plan Treatment/Plan Treatment Plan: Continue Plan of Care Treatment Plan: Bed Mobility, Education, Functional Activity Issac, Functional Strength, Group Therapy, Gait, Safety, Therapeutic Exercise, Transfers Treatment Duration: May 29, 2017 Frequency: At least 5 of 7 days/Wk (IRF) Estimated Hrs Per Day: 1.5 hours per day Patient and/or Family Agrees t: Yes Safety Risks/Education Patient Education: Gait Training, Transfer Techniques, Correct Positioning, Safety Issues Teaching Recipient: Patient Teaching Methods: Demonstration, Discussion Response to Teaching: Verbalize Understanding, Return Demonstration, Reinforcement Needed Time/GCodes Time In: 900 Time Out: 1000 Total Billed Treatment Time: 60 Total Billed Treatment 1,EX25m,FA15m,GT20m G Codes Necessary: GABRIELLE Lake PTA May 09, 2017 10:01
[2017-05-09] MEDS: ENOXAPARIN 40 MG/0.4 ML (LOVENOX) SYR SC SCH (11:14)
--- NOTE | 2017-05-09 12:34 | Progress Note (SOAP) ---
Subjective Date Seen by Provider: May 09, 2017 Time Seen by Provider: 12:31 Subjective/Events-last exam Fwup Left hip fracture, DM--insulin requiring, Chronic coumadin therapy, Hypertension. Diarrhea better. Pain okay controlled but wonders if could adjust meds up slightly. Objective Exam Vital Signs Date Time Temp Pulse Resp B/P (MAP) Pulse Ox O2 Delivery O2 Flow Rate FiO2 05/09/17 09:00 97 Room Air 05/09/17 05:25 98.5 86 18 160/86 (110) 97 Room Air 05/08/17 20:48 97 Room Air 05/08/17 17:33 97.7 75 18 157/81 (106) 97 Room Air I & O 05/09/17 07:00 Intake Total 1200 ml Balance 1200 ml Capillary Refill : Less Than 3 Seconds General Appearance: No Apparent Distress Respiratory: Lungs Clear Cardiovascular: Regular Rate, Rhythm Extremity: No Calf Tenderness Neurologic/Psychiatric: Alert, Oriented x3 Results Lab Laboratory Tests 05/08/17 14:05: Glucometer 406*H 05/08/17 15:48: Glucometer 357H 05/08/17 20:30: Glucometer 66L 05/08/17 20:58: Glucometer 52*L 05/08/17 21:09: Glucometer 52*L 05/08/17 21:18: Glucometer 54*L 05/08/17 21:27: Glucometer 68L 05/08/17 21:57: Glucometer 84 05/09/17 00:10: Glucometer 230H 05/09/17 02:35: Glucometer 312H 05/09/17 05:10: Glucometer 270H 05/09/17 05:15: Prothrombin Time 36.1H, INR Comment 3.7H 05/09/17 10:48: Glucometer 179H Assessment/Plan Assessment/Plan Assess & Plan/Chief Complaint 1. Left intertrochanteric hip fracture--S/P ORIF, pain control, PT/OT 2. Chronic Coumadin Therapy for Chronic DVT of LLE--DC lovenox and hold coumadin dose tonight and recheck PT/INR in AM 3. Hypertension--back on home meds 4. Diabetes mellitus--insulin requiring--increase levemir and continue SSI 5. GERD--resumed protonix 6. Memory Loss--recent CT scan shows microvascular changes with history of lacunar infarcts and has a family history of alzheimers--started aricept 7. Acute on Chronic Anemia from recent surgery--S/P transfusion, monitor H/H 8. Left knee pain/OA--stable 9. Right Hip Pain--likely compensatory from left hip fracture 10. Diarrhea--improved with addition of lactobacillus and immodium Clinical Quality Measures DVT/VTE Risk/Contraindication: Risk Factor Score Per Nursin RFS Level Per Nursing on Admit: 4+=Very High SHAKEEL BRUCE DO May 09, 2017 12:34
--- NOTE | 2017-05-09 13:34 | Physical Therapy Daily Note ---
PT Daily Note-Current Subjective Wants to know when she might be able to think about going home. Feels she is making regular progress and happy to be in rehab Pain Numeric Pain Scale: 3 Location: Left Location Body Site: Hip Pain Description: Ache Mental Status Patient Orientation: Normal For Age Transfers Functional [place] Measure 0=Not Assessed/NA 4=Minimal Assistance 1=Total Assistance 5=Supervision or Setup 2=Maximal Assistance 6=Modified [place] 3=Moderate Assistance 7=Complete IndependenceIRFPAI Quality Coding Scale 6 Independent with activity with or without an assistive device 5 Patient requires set up or clean up by helper. Patient completes activity by themselves 4 Supervision or touching assist (CGA). [place] provide cues , steadying assist 3 The helper provides less than half the effort to complete the activity 2 The helper provides more than half the effort to complete the activity 1 Dependent. The helper does all the effort to complete an activity 7 Patient refused to complete or attempt activity 9 The patient did not perform the activity before the current illness or injury 88 Not attempted due to Medical conditions or safety concerns chair TRF SBA, sit to sup min assist Weight Bearing Right Lower Extremity: Right Full Weight Bearing Left Lower Extremity: Left Weight Bearing/Tolerated Gait Training Gait Assistive Device: FWW 150x1,75x2 FWW SBA slow, fatigued, no LOB Stair Training Stair Training: Handrails/: uses walker Stairs (FIM): 2 #of Steps: 1 Stairs: Pattern: Step to min to mod assist up single step simulating pts described home situation Exercises Seated Therapy Exercises: Ankle pumps, Sit to stand, Long arc quads, Hip abd/ add Seated Reps: 12 Assessment Current Status: Good Progress fatigued, in bed after with call [place] at side PT Short Term Goals Short Term Goals Time Frame: May 15, 2017 Gait (FIM): 5 Gait Distance Comment: 200' Gait Level of Assist: 5 PT Mcfp Goals Mcfp Goals PT Library Clerical Assistant Goals Time Frame: May 29, 2017 Transfers (B,C,W/C) (FIM): 5 Sit to Lying (QC): 4 Lying-Sitting on Side/Bed(QC): 4 Sit to Stand (QC): 4 Rollin Roll Left to Right (QC): 4 Chair/Giz-uy-Qcpcf Xfer(QC): 4 Car Transfer (QC): 4 Gait (FIM): 5 Distance: 300' Walk 10 feet (QC): 4 Walk 10ft-Uneven Surface(QC): 4 Walk 50ft with 2 Turns (QC): 4 Walk 150 ft (QC): 4 Gait Level of Assist: 5 Gait Assistive Device: FWW Stairs (FIM): 2 # of Steps: 4 1 Step (curb) (QC): 4 Stairs Level Of Assist: 4 (CGA) PT Plan Treatment/Plan Treatment Plan: Continue Plan of Care Treatment Plan: Bed Mobility, Education, Functional Activity Issac, Functional Strength, Group Therapy, Gait, Safety, Therapeutic Exercise, Transfers Treatment Duration: May 29, 2017 Frequency: At least 5 of 7 days/Wk (IRF) Estimated Hrs Per Day: 1.5 hours per day Patient and/or Family Agrees t: Yes Safety Risks/Education Patient Education: Gait Training, Transfer Techniques, Steps, Correct Positioning, Disease Process, Safety Issues Teaching Recipient: Patient Teaching Methods: Demonstration, Discussion Response to Teaching: Verbalize Understanding, Return Demonstration, Reinforcement Needed Time/GCodes Time In: 1300 Time Out: 1330 Total Billed Treatment Time: 30 Total Billed Treatment 1,GT15m,FA15m G Codes Necessary: GABRIELLE Lake SHIPPING SUPPORT CLERK May 09, 2017 13:34
[2017-05-09] MEDS: ACETAMINOPHEN 500 MG TAB (TYLENOL) PO SCH ×3 (14:04→21:11)
--- NOTE | 2017-05-09 15:47 | PM & R (SOAP) Progress Note ---
Subjective Time Seen by Provider: 10:15 Subjective/Events-last exam Patient was seen in her room this AM Patient min assist for transfers Appreciate DR Cheema note Appreciate accuchecks Review of Systems Musculoskeletal: leg pain Objective Exam Last Set of Vital Signs Vital Signs Date Time Temp Pulse Resp B/P (MAP) Pulse Ox O2 Delivery O2 Flow Rate FiO2 05/09/17 09:00 97 Room Air 05/09/17 05:25 98.5 86 18 160/86 (110) Capillary Refill : Less Than 3 Seconds I&O Intake and Output 05/09/17 00:00 Intake Total 800 ml Balance 800 ml Intake Oral 800 ml # Voids 4 # Bowel Movements 2 Daily Weight Change No General: Alert, Oriented X3, Cooperative, No Acute Distress HEENT: Atraumatic, PERRLA, EOMI, Mucous Memb Moist/[place] Neck: Supple, No JVD Lungs: Clear to Auscultation Heart: Regular Rate Abdomen: Normal Bowel Sounds, Soft, No Tenderness Extremities: Other (trace edema) Neuro: Other (weakness at hip s/p repair) Results Lab Laboratory Tests 05/08/17 14:05: Glucometer 406*H 05/08/17 15:48: Glucometer 357H 05/08/17 20:30: Glucometer 66L 05/08/17 20:58: Glucometer 52*L 05/08/17 21:09: Glucometer 52*L 05/08/17 21:18: Glucometer 54*L 05/08/17 21:27: Glucometer 68L 05/08/17 21:57: Glucometer 84 05/09/17 00:10: Glucometer 230H 05/09/17 02:35: Glucometer 312H 05/09/17 05:10: Glucometer 270H 05/09/17 05:15: Prothrombin Time 36.1H, INR Comment 3.7H 05/09/17 10:48: Glucometer 179H Assessment/Plan Assessment Left intertrochanteric hip fracture s/p fal s/p ORIF Chronic coumadin therapy INR elevated coumadin on hold HTN on home meds controlled DM Meds adjusted by PCP GERD on protonix Memory loss with hx of lacunar strokes Acute on chronic anemia from recent surgery s/p transfusion DJD left knee Voltaran gel Diarrhea improved with meds Plan Continue PT/OT F/U with PCP and ortho prn Team Conference held earlier today-See report for full functional update and POC and JAREN ROBERTS MD May 09, 2017 15:47
[2017-05-09] MEDS: LOPERAMIDE 2 MG (IMODIUM) CAP PO PRN (16:55)
[2017-05-09 18:00] VITALS: BP 167/69
[2017-05-09] MEDS: ATORVASTATIN 10 MG (LIPITOR) TABLET PO SCH (21:11)
[2017-05-09] MEDS: DONEPEZIL 5 MG (ARICEPT) TAB PO SCH (21:11)
[2017-05-10 05:14] VITALS: BP 110/85
[2017-05-10] MEDS: inSUlin (REGULAR) HUMAN 1 UNIT/0.01 ML (CHARGE PER UNIT) SC SCH ×4 (05:20→20:58)
[2017-05-10 06:03] LABS: INR 3.4 (0.8-1.4); PROTHROMBIN TIME PATIENT 34.4 SEC (12.2-14.7)
[2017-05-10] MEDS: CALCIUM CARB + VIT D 600 MG (CALCARB + D) TAB PO SCH ×2 (06:13→17:01)
[2017-05-10] MEDS: PANTOPRAZOLE 40 MG (PROTONIX) TAB PO SCH (06:13)
[2017-05-10] MEDS: LACTOBACILLUS Acidoph/Bulgar (LACTINEX/FLORANEX) TAB PO SCH ×3 (06:13→17:01)
--- NOTE | 2017-05-10 08:15 | Occupational Ther Daily Note ---
OT Current Status-Daily Note Subjective Pt alert, sitting in recliner. Pt agreed to therapy. Pt c/o pain 12/05. Reported to nrsg. Nrsg came in and explained when pain meds were due. Mental Status/Objective Patient Orientation: Person, Place, Time, Situation Functional Mathews Measure 0=Not Assessed/NA 4=Minimal Assistance 1=Total Assistance 5=Supervision or Setup 2=Maximal Assistance 6=Modified [place] 3=Moderate Assistance 7=Complete [place] Attachments: IV ADL-Treatment Pt declined shower today. Pt did agree with sponge bath and changing clothing. Pt was able to complete upper body bathing by self after set up. Pt required CGA in standing to cleanse donna area/buttocks. Pt donned/doffed upper body clothing by self after set up. Lower body clothing doffed/donned with AE. CGA in standing to hike pants over hips. Assist to don/doff compression stockings. Pt declined oral hygiene stating that she cleans her dentures at night. Functional [place] Measure 0=Not Assessed/NA 4=Minimal Assistance 1=Total Assistance 5=Supervision or Setup 2=Maximal Assistance 6=Modified [place] 3=Moderate Assistance 7=Complete IndependenceIRFPAI Quality Coding Scale 6 Independent with activity with or without an assistive device 5 Patient requires set up or clean up by helper. Patient completes activity by themselves 4 Supervision or touching assist (CGA). [place] provide cues , steadying assist 3 The helper provides less than half the effort to complete the activity 2 The helper provides more than half the effort to complete the activity 1 Dependent. The helper does all the effort to complete an activity 7 Patient refused to complete or attempt activity 9 The patient did not perform the activity before the current illness or injury 88 Not attempted due to Medical conditions or safety concerns Upper Body (FIM): 5 Upper Body Dressing (QC): 5 Lower Body Dressing (FIM): 4 Lower Body Dressing (QC): 4 On/Off Footwear (QC): 4 Other Treatment Pt ambulated to [facility] and required 4 recovery breaks due to increased pain in L hip. Nrsg was notified of pain. Pt then transferred back to recliner. Completed resistive clothespins to increase strength for fiscal officer/ pinch with B hands. After therapy, pt sitting in recliner with call light/ phone in reach. All needs met in room. OT Short Term Goals Short Term Goals Time Frame: May 15, 2017 Bathing(FIM): 4 Upper Body Dressing(FIM): 5 Lower Body Dressing(FIM): 4 Toileting(FIM): 4 Toilet/Commode Transfer(FIM): 5 Shower Transfer(FIM): 4 Additional Short Term Goals: 1-Demonstrate ADL Tasks, 2-Verbalize Understanding , 3-ImproveStrength/Issac 1=Demonstrate adherence to instructed precautions during ADL tasks. 2=Patient will verbalize/demonstrate understanding of assistive devices/ modifications for ADL. 3=Patient will improve strength/tolerance for activity to enable patient to perform ADL's. OT Intermediate Goals Intermediate Goals Time Frame: May 29, 2017 Eating (FIM): 6 Eating (QC): 6 Groomin Oral Hygiene (QC): 6 Bathing(FIM): 5 Shower/Bathe Self (QC): 5 Upper Body Dressing(FIM): 6 Upper Body Dressing (QC): 6 Lower Body Dressing(FIM): 5 Lower Body Dressing (QC): 5 On/Off Footwear (QC): 5 Toileting(FIM): 6 Toileting Hygiene (QC): 6 Toilet/Commode Transfer(FIM): 6 Toilet/Commode Transfer (QC): 6 Shower Transfer(FIM): 5 Additional Goals: 1-Demonstrate ADL Tasks, 2-Verbalize Understanding, 3- ImproveStrength/Issac 1=Demonstrate adherence to instructed precautions during ADL tasks. 2=Patient will verbalize/demonstrate understanding of assistive devices/ modifications for ADL. 3=Patient will improve strength/tolerance for activity to enable patient to perform ADL's. OT Education/Plan Discharge Recommendations Plan/Recommendations: Continue POC Treatment Plan/Plan of Care Patient would benefit from OT for education, treatment and training to promote independence in ADL's, mobility, safety and/or upper extremity function for ADL' s. Plan of Care: ADL Retraining, Functional Mobility, Group Exercise/Act as Ind, UE Funct Exercise/Act Treatment Duration: May 29, 2017 Frequency: At least 5 of 7 days/Wk (IRF) Estimated Hrs Per Day: 1.5 hours per day Agreement: Yes Rehab Potential: Fair Time/GCodes Start Time: 07:00 Stop Time: 08:30 Total Time Billed (hr/min): 90 Billed Treatment Time 1 visit-ADL 4 (65 min) EX 2 (25 min) LAYA RICE May 10, 2017 08:15
[2017-05-10] MEDS: CARVEDILOL 12.5 MG (COREG) TABLET PO SCH ×2 (08:21→20:28)
[2017-05-10] MEDS: MICONAZOLE 2% POWDER (DESENEX AF) 90 GM TOP SCH ×2 (08:21→20:29)
[2017-05-10] MEDS: DICLOFENAC 1% GEL 100 GM (VOLTAREN) TUBE TOP SCH ×4 (08:21→20:28)
[2017-05-10] MEDS: ACETAMINOPHEN 500 MG TAB (TYLENOL) PO SCH ×3 (08:22→18:20)
--- NOTE | 2017-05-10 09:57 | PM & R (SOAP) Progress Note ---
Subjective Time Seen by Provider: 08:45 Subjective/Events-last exam Patient was seen in her room this AM request scheduled pain med to be given before therapy begins Discussed with RN She will change am dose to 7am rather then [address] Russo has placed patient on tid scheduled TRamadol and Tylenol.Patient min assist for transfers.INR still elevated Coumadin remains on hold Review of Systems Musculoskeletal: leg pain Objective Exam Last Set of Vital Signs Vital Signs Date Time Temp Pulse Resp B/P (MAP) Pulse Ox O2 Delivery O2 Flow Rate FiO2 05/10/17 09:21 Room Air 05/10/17 05:14 97.9 68 16 110/85 (93) 96 Capillary Refill : Less Than 3 Seconds I&O Intake and Output 05/10/17 00:00 Intake Total 1120 ml Balance 1120 ml Intake Oral 1120 ml # Voids 12 # Bowel Movements 2 General: Alert, Oriented X3, Cooperative, No Acute Distress HEENT: Atraumatic, PERRLA, EOMI, Mucous Memb Moist/Remy Neck: Supple, No JVD Lungs: Clear to Auscultation Heart: Regular Rate Abdomen: Normal Bowel Sounds, Soft, No Tenderness Extremities: Other (trace edema) Neuro: Other (weakness at hip s/p repair) Results Lab Laboratory Tests 05/08/17 14:05: Glucometer 406*H 05/08/17 15:48: Glucometer 357H 05/08/17 20:30: Glucometer 66L 05/08/17 20:58: Glucometer 52*L 05/08/17 21:09: Glucometer 52*L 05/08/17 21:18: Glucometer 54*L 05/08/17 21:27: Glucometer 68L 05/08/17 21:57: Glucometer 84 05/09/17 00:10: Glucometer 230H 05/09/17 02:35: Glucometer 312H 05/09/17 05:10: Glucometer 270H 05/09/17 05:15: Prothrombin Time 36.1H, INR Comment 3.7H 05/09/17 10:48: Glucometer 179H 05/09/17 16:02: Glucometer 133H 05/09/17 20:28: Glucometer 283H 05/10/17 04:47: Glucometer 80 05/10/17 05:28: Prothrombin Time 34.4H, INR Comment 3.4H Assessment/Plan Assessment Left intertrochanteric hip fracture s/p fal s/p ORIF Chronic coumadin therapy INR elevated coumadin on hold HTN on home meds controlled DM Meds adjusted by PCP GERD on protonix Memory loss with hx of lacunar strokes Acute on chronic anemia from recent surgery s/p transfusion DJD left knee Voltaran gel Diarrhea improved with meds Plan Continue PT/OT F/U with PCP and ortho prn Team Conference held yesterday-See report for full functional update and POC and ELOS Change schedule for AM dose of Tylenol and tramadol-Pain management JAREN ADDISON MD May 10, 2017 09:57
--- NOTE | 2017-05-10 12:09 | Physical Therapy Daily Note ---
PT Daily Note-Current Subjective Pt sitting in recliner upon arrival. Pt agrees to PT. Pain Numeric Pain Scale: 6 Location: Left Location Body Site: Hip Pain Description: Ache Mental Status Patient Orientation: Person, Place, Time, Situation Attachments: IV Transfers Functional [place] Measure 0=Not Assessed/NA 4=Minimal Assistance 1=Total Assistance 5=Supervision or Setup 2=Maximal Assistance 6=Modified [place] 3=Moderate Assistance 7=Complete IndependenceIRFPAI Quality Coding Scale 6 Independent with activity with or without an assistive device 5 Patient requires set up or clean up by helper. Patient completes activity by themselves 4 Supervision or touching assist (CGA). [place] provide cues , steadying assist 3 The helper provides less than half the effort to complete the activity 2 The helper provides more than half the effort to complete the activity 1 Dependent. The helper does all the effort to complete an activity 7 Patient refused to complete or attempt activity 9 The patient did not perform the activity before the current illness or injury 88 Not attempted due to Medical conditions or safety concerns Scootin Supine to/from Sit: 4 Sit to/from Stand: 5 Sit to Lying (QC): 4 Sit to Stand (QC): 5 Weight Bearing Right Lower Extremity: Right Full Weight Bearing Left Lower Extremity: Left Weight Bearing/Tolerated Gait Training Does the Patient Walk?: Yes Distance (FIM): 9=334-06 ft Distance: 100' Walk 10 feet (QC): 5 Walk 50 ft with 2 Turns(QC): 5 Gait Level of Assist: 5 Gait Persons Needed: 1 Gait Assistive Device: FWW Pt fatigues quickly and needs frequent rest breaks due to discomfort & fatigue. Exercises Seated Therapy Exercises: Ankle pumps, Long arc quads, Hip flexion, Kicking activity, Hip abd/add Seated Reps: 15 Treatments Pt transfers from recliner to Standing suing FWW at [facility]. Pt ambulated in hallway using FWW at [facility] with rest break approx. every 40'. Pt completed Seated Ex in chair then returned to room to rest Supine in bed at Min A for lifting BLE into bed. Assessment Current Status: Good Progress Pt continues to try to push herself although limited by fatigue and pain. PT Short Term Goals Short Term Goals Time Frame: May 15, 2017 Gait (FIM): 5 Gait Distance Comment: 200' Gait Level of Assist: 5 PT Level Vial Inspector Goals Level Vial Inspector Goals PT Snf Goals Time Frame: May 29, 2017 Transfers (B,C,W/C) (FIM): 5 Sit to Lying (QC): 4 Lying-Sitting on Side/Bed(QC): 4 Sit to Stand (QC): 4 Rollin Roll Left to Right (QC): 4 Chair/Cqa-vb-Czwqw Xfer(QC): 4 Car Transfer (QC): 4 Gait (FIM): 5 Distance: 300' Walk 10 feet (QC): 4 Walk 10ft-Uneven Surface(QC): 4 Walk 50ft with 2 Turns (QC): 4 Walk 150 ft (QC): 4 Gait Level of Assist: 5 Gait Assistive Device: FWW Stairs (FIM): 2 # of Steps: 4 1 Step (curb) (QC): 4 Stairs Level Of Assist: 4 (CGA) PT Plan Problem List Problem List: Activity Tolerance, Functional Strength, Safety, Gait Treatment/Plan Treatment Plan: Continue Plan of Care Treatment Plan: Bed Mobility, Education, Functional Activity Issac, Functional Strength, Group Therapy, Gait, Safety, Therapeutic Exercise, Transfers Treatment Duration: May 29, 2017 Frequency: At least 5 of 7 days/Wk (IRF) Estimated Hrs Per Day: 1.5 hours per day Patient and/or Family Agrees t: Yes Safety Risks/Education Patient Education: Gait Training, Transfer Techniques, Correct Positioning, Safety Issues Teaching Recipient: Patient Teaching Methods: Discussion Response to Teaching: Verbalize Understanding Time/GCodes Time In: 830 Time Out: 900 Total Billed Treatment Time: 30 Total Billed Treatment 1, GT (15m) & GT (15m) RON CHANEL PTA May 10, 2017 12:08
--- NOTE | 2017-05-10 12:37 | Progress Note (SOAP) ---
Subjective Date Seen by Provider: May 10, 2017 Time Seen by Provider: 12:35 Subjective/Events-last exam Fwup Left hip fracture, DM--insulin requiring, Chronic coumadin therapy, Hypertension. Diarrhea better. Pain doing better with med adjustment. Objective Exam Vital Signs Date Time Temp Pulse Resp B/P (MAP) Pulse Ox O2 Delivery O2 Flow Rate FiO2 05/10/17 09:21 Room Air 05/10/17 05:14 97.9 68 16 110/85 (93) 96 Room Air 05/09/17 21:00 Room Air 05/09/17 18:00 97.4 73 16 167/69 (101) 96 Room Air I & O 05/10/17 07:00 Intake Total 1170 ml Balance 1170 ml Capillary Refill : Less Than 3 Seconds General Appearance: No Apparent Distress Neck: Supple Respiratory: Lungs Clear Cardiovascular: Regular Rate, Rhythm Gastrointestinal: normal bowel sounds, non tender, soft Extremity: Non Tender, No Calf Tenderness, Pedal Edema (chronic) Neurologic/Psychiatric: Alert, Oriented x3 Results Lab Laboratory Tests 05/09/17 16:02: Glucometer 133H 05/09/17 20:28: Glucometer 283H 05/10/17 04:47: Glucometer 80 05/10/17 05:28: Prothrombin Time 34.4H, INR Comment 3.4H 05/10/17 11:04: Glucometer 328H Assessment/Plan Assessment/Plan Assess & Plan/Chief Complaint 1. Left intertrochanteric hip fracture--S/P ORIF, pain control, PT/OT 2. Chronic Coumadin Therapy for Chronic DVT of LLE--Resume coumadin at lower dose and monitor PT/INR 3. Hypertension--back on home meds 4. Diabetes mellitus--insulin requiring--continue levemir and continue SSI 5. GERD--resumed protonix 6. Memory Loss--recent CT scan shows microvascular changes with history of lacunar infarcts and has a family history of alzheimers--started aricept 7. Acute on Chronic Anemia from recent surgery--S/P transfusion, monitor H/H 8. Left knee pain/OA--stable 9. Right Hip Pain--likely compensatory from left hip fracture 10. Diarrhea--improved with addition of lactobacillus and immodium Clinical Quality Measures DVT/VTE Risk/Contraindication: Risk Factor Score Per Nursin RFS Level Per Nursing on Admit: 4+=Very High SHAKEEL BRUCE DO May 10, 2017 12:37
--- NOTE | 2017-05-10 16:39 | Physical Therapy Daily Note ---
PT Daily Note-Current Subjective Pt laying Supine in bed upon arrival. Pt agrees to PT. Pain Numeric Pain Scale: 6 Location: Left Location Body Site: Hip Pain Description: Ache Mental Status Patient Orientation: Person, Place, Time, Situation Transfers Functional [place] Measure 0=Not Assessed/NA 4=Minimal Assistance 1=Total Assistance 5=Supervision or Setup 2=Maximal Assistance 6=Modified [place] 3=Moderate Assistance 7=Complete IndependenceIRFPAI Quality Coding Scale 6 Independent with activity with or without an assistive device 5 Patient requires set up or clean up by helper. Patient completes activity by themselves 4 Supervision or touching assist (CGA). [place] provide cues , steadying assist 3 The helper provides less than half the effort to complete the activity 2 The helper provides more than half the effort to complete the activity 1 Dependent. The helper does all the effort to complete an activity 7 Patient refused to complete or attempt activity 9 The patient did not perform the activity before the current illness or injury 88 Not attempted due to Medical conditions or safety concerns Scootin Rollin Supine to/from Sit: 4 Sit to/from Stand: 5 Sit to Lying (QC): 4 Sit to Stand (QC): 5 Weight Bearing Right Lower Extremity: Right Full Weight Bearing Left Lower Extremity: Left Weight Bearing/Tolerated Gait Training Does the Patient Walk?: Yes Distance (FIM): 3=150 ft Distance: 150' Walk 10 feet (QC): 5 Walk 50 ft with 2 Turns(QC): 5 Walk 150 ft (QC): 5 Gait Level of Assist: 5 Gait Persons Needed: 1 Gait Assistive Device: FWW Pt has slow but steady gait, no LOB. Pt fatigues quickly and needs frequent rest breaks due to fatigue & pain. Exercises Supine Ex: Ankle pumps, Heel Slides, Straight leg raise Supine Reps: 15 Seated Therapy Exercises: Ankle pumps, Sit to stand, Long arc quads, Hip flexion, Kicking activity Seated Reps: 10 Treatments Pt transfers from Supine to EOB to Standing using FWW at SBA. Pt ambulates in hallway using FWW at SBA. Pt practices Sit to Stands for proper sizing of FWW. Pt gets to Therapy Gym and sits EOB then needs to return to room to use restroom so ambulates back then returns to EOB in room to rest. Pt completes Seated Ex at EOB then transfers to Supine in bed for bed mobility followed by Supine Ex. Pt rests in bed at end of tx with all needs met. Assessment Current Status: Good Progress Pt fatigues quickly and needs frequent short rest breaks. Pt reports pain in L hip which contributes to pt's LLE weakness. PT Short Term Goals Short Term Goals Time Frame: May 15, 2017 Gait (FIM): 5 Gait Distance Comment: 200' Gait Level of Assist: 5 PT Fpc Goals Fpc Goals PT Transfer And Pumphouse Operator Chief Goals Time Frame: May 29, 2017 Transfers (B,C,W/C) (FIM): 5 Sit to Lying (QC): 4 Lying-Sitting on Side/Bed(QC): 4 Sit to Stand (QC): 4 Rollin Roll Left to Right (QC): 4 Chair/Hur-pc-Rjjfk Xfer(QC): 4 Car Transfer (QC): 4 Gait (FIM): 5 Distance: 300' Walk 10 feet (QC): 4 Walk 10ft-Uneven Surface(QC): 4 Walk 50ft with 2 Turns (QC): 4 Walk 150 ft (QC): 4 Gait Level of Assist: 5 Gait Assistive Device: FWW Stairs (FIM): 2 # of Steps: 4 1 Step (curb) (QC): 4 Stairs Level Of Assist: 4 (CGA) PT Plan Problem List Problem List: Activity Tolerance, Functional Strength, Safety, Gait, Transfer Treatment/Plan Treatment Plan: Continue Plan of Care Treatment Plan: Bed Mobility, Education, Functional Activity Issac, Functional Strength, Group Therapy, Gait, Safety, Therapeutic Exercise, Transfers Treatment Duration: May 29, 2017 Frequency: At least 5 of 7 days/Wk (IRF) Estimated Hrs Per Day: 1.5 hours per day Patient and/or Family Agrees t: Yes Safety Risks/Education Patient Education: Gait Training, Transfer Techniques, Correct Positioning, Safety Issues Teaching Recipient: Patient Teaching Methods: Discussion Response to Teaching: Verbalize Understanding Time/GCodes Time In: 1230 Time Out: 1330 Total Billed Treatment Time: 60 Total Billed Treatment 1, GT (15m), FA x2 (30m) & EX (15m) RON CHANEL SPREADER BOX OPERATOR May 10, 2017 16:38
[2017-05-10 16:52] VITALS: BP 157/73
[2017-05-10] MEDS: warFARin 3 MG (COUMADIN) TAB PO SCH (18:20)
[2017-05-10] MEDS: ATORVASTATIN 10 MG (LIPITOR) TABLET PO SCH (20:28)
[2017-05-10] MEDS: DONEPEZIL 5 MG (ARICEPT) TAB PO SCH (20:28)
--- NOTE | 2017-05-10 20:42 | Individualized Plan of Care ---
Individualized Plan of Care Rehab Nursing IPOC Order Admission Date May 08, 2017 at 10:43 am Current Orders Orders Admission Order(Inpt,Obs,Sdc) (05/08/17 11:01) Code/Resuscitation (05/08/17 11:01) Initiate Admission Nursing Pro .admission (05/08/17 11:01) Isolation Central Supply Req (05/08/17 11:01) Patient Visit (05/08/17 ) Speech Sound Lang Comp (05/08/17 ) Accucheck Achs ACHS (05/08/17 11:02) Ambulate TID (05/08/17 11:02) Bladder Scan (05/08/17 11:02) Ice: Apply To Affected Area (05/08/17 11:02) Incentive Spirometry (Nursing) Q2H (05/08/17 11:02) Initiate Admission Nursing Pro .admission (05/08/17 11:02) Nursing Communication (Ord) (05/08/17 11:02) Oxygen-Administer 07,19 (05/08/17 11:02) Post Surgical Care (05/08/17 11:02) Straight Cath (Urinary) (05/08/17 11:02) Brendan Hose 09,21 (05/08/17 11:02) Turn, Cough, And Deep Breathe (05/08/17 11:02) Up With Assistance As Tolerate (05/08/17 11:02) Weight Bearing Status (05/08/17 11:02) General/Regular (05/08/17 Lunch) Atorvastatin Tablet (Lipitor Tablet) (05/08/17 21:00) Citalopram Tablet (Celexa Tablet) (05/08/17 21:00) Calcium Carbonate W/Vitamin D3 (Calcarb (05/08/17 17:00) Carvedilol Tablet (Coreg Tablet) (05/08/17 21:00) Diclofenac 1% Gel (Voltaren 1% Gel) (05/08/17 13:00) Enoxaparin Injection (Lovenox Injection) (05/08/17 11:15) Magnesium Hydroxide Oral Susp (Mom Oral (05/08/17 11:15) Miconazole 2% Powder (Desenex Af 2% Powd (05/08/17 21:00) Ondansetron Injection (Zofran Injectio (05/08/17 11:15) Pantoprazole Tablet (Protonix Tablet) (05/09/17 07:00) Senna S Tablet (Senokot S Tablet) (05/08/17 21:00) Warfarin Tablet (Coumadin Tablet) (05/08/17 18:00) Insulin (Regular) Human (Humulin R (Per (05/08/17 16:00) Insulin Determir (Per Unit) (Levemir (Pe (05/08/17 21:00) Metformin Tablet (Glucophage Tablet) (05/08/17 17:00) Morphine Injection (Morphine Injection (05/08/17 11:15) Tramadol Tablet (Ultram Tablet) (05/08/17 11:15) Consult Physician (05/08/17 11:02) Ambulate TID (05/08/17 12:04) Sequential Compression Device 08,20 (05/08/17 12:04) Dvt/Vte Risk - Notifiy Physici 08 (05/08/17 12:04) Admission Order(Inpt,Obs,Sdc) (05/08/17 12:02) Vital Signs: Routine (Ord) 08,16,00 (05/08/17 12:02) World Language Teacher-Inpt Rehab (05/08/17 12:02) Rehab Nursing Orders-Ipoc (05/08/17 12:02) Physical Therapy Rehab Orders (05/08/17 12:02) Occupational Therapy Rehab Ord (05/08/17 12:02) Speech Therapy Rehab Orders (05/08/17 12:02) Turn And Reposition Q2HR (05/08/17 12:02) Intake & Output 06,14,22 (05/08/17 12:02) Weekly Weight (Lbs) WEEK (05/08/17 12:02) Lactobacillus/[place] Tab (Lactinex (05/08/17 16:00) Loperamide Capsule (Imodium Capsule) (05/08/17 12:30) Loperamide Capsule (Imodium Capsule) (05/08/17 12:30) Protime With Inr (05/09/17 06:00) Protime With Inr (05/10/17 06:00) Protime With Inr (05/11/17 06:00) Protime With Inr (05/12/17 06:00) Protime With Inr (05/13/17 06:00) Protime With Inr (05/14/17 06:00) Protime With Inr (05/15/17 06:00) Protime With Inr (05/16/17 06:00) Warfarin Tablet (Coumadin Tablet) (05/08/17 18:00) Donepezil Tablet (Aricept Tablet) (05/08/17 21:00) Follow-Up Appointment (05/08/17 13:38) Patient Visit (05/08/17 ) Pt Eval Moderate Complexity (05/08/17 ) Gait Training, Ea 15 Min (05/08/17 ) Exercise Therap, Ea 15 Min (05/08/17 ) Insulin (Regular) Human (Humulin R (Per (05/08/17 14:15) Patient Visit (05/08/17 ) Exercise Therap, Ea 15 Min (05/08/17 ) Gait Training, Ea 15 Min (05/08/17 ) Nursing Communication (Ord) (05/08/17 22:01) Insulin Determir (Per Unit) (Levemir (Pe (05/09/17 21:00) Tramadol Tablet (Ultram Tablet) (05/09/17 13:00) Acetaminophen Tablet (Tylenol Tablet) (05/09/17 13:00) Patient Visit (05/09/17 ) Exercise Therap, Ea 15 Min (05/09/17 ) Functional Activities, Ea 15 (05/09/17 ) Gait Training, Ea 15 Min (05/09/17 ) Acetaminophen Tablet (Tylenol Tablet) (05/10/17 13:00) Tramadol Tablet (Ultram Tablet) (05/10/17 13:00) Warfarin Tablet (Coumadin Tablet) (05/10/17 18:00) Iv-Discontinue (Order) (05/10/17 12:45) Patient Visit (05/10/17 ) Gait Training, Ea 15 Min (05/10/17 ) Exercise Therap, Ea 15 Min (05/10/17 ) Functional Activities, Ea 15 (05/10/17 ) Rehab Nursing Orders: Diseage Management, Edu in Press Rel Techn, Hydration Management, Nutrition Management, Pain Management Other Nursing Orders: Monitor for postop constipation and urinary retention and pain control PT IPOC Problem List: Activity Tolerance, Functional Strength, Safety, Gait, Transfer Treatment Plan: Continue Plan of Care Bed Mobility, Education, Functional Activity Issac, Functional Strength, Group Therapy, Gait, Safety, Therapeutic Exercise, Transfers Treatment Duration: May 29, 2017 Frequency: At least 5 of 7 days/Wk (IRF) Estimated Hrs Per Day: 1.5 hours per day OT IPOC Problems: Decreased Activ Tolerance, Decreased UE Strength, Dependent Transfers , Impaired I ADL's, Impaired Self-Care Skills OT Treatment, Training and Edu: Yes Plan of Care: ADL Retraining, Functional Mobility, Group Exercise/Act as Ind, UE Funct Exercise/Act Treatment Duration: May 29, 2017 Frequency: At least 5 of 7 days/Wk (IRF) Estimated Hrs Per Day: 1.[address] IPOC Speech Therapy Treatment Plan: Discontinue ST Treatment Duration: May 10, 2017 Frequency: Modified Program (IRF) Estimated Hrs Per Day: Other World Language Teacher/Case Mgmt World Language Teacher/Case Managemen: Discharge Planning, Patient/Family Counseling Physician IPOC Medical Issues being managed closely and that require the 24 hour availability of a physician:Pain management Chronic anticoagulation with coumadin DM Gerd Anemia HTN DJD left knee pain management [facility] CODE 08.11 Etiologic Diagnosis Comminuted intertrochanteric fracture left femur Medical Issues: Bowel/Bladder Function, DVT Prophylaxis, Falls Precautions, Fluid/Electrolyte/Nutrition Balance, Infection Protection, Pain Management, Wound Care, Other (List) (as per above) Brief Synthesis of Preadmission Screen, Post-Admission Evaluation, and Therapy Evaluations:67 yo female who had been Independent prior to fall with rsulting Left Hip fracture now s/p ORIF with ortho.Had transfusion PRBCS for blood loss anemia.Voltaran gel being used for painful left knee. Meds for DM and HTN being adjusted has a supportive family Medical Prognosis: good Anticipated Length of Stay: 05-29-2017 Rehab Goals Modified Independent for adls and mobility skills Anticipated discharge destinat: Home with family and C JAREN ADDISON MD May 10, 2017 8:42 pm
[2017-05-10] MEDS: inSUlin DETERMIR 1 UNIT/0.01 ML (LEVEMIR) CHARGE PER UNIT SQ SCH (20:59)
[2017-05-11] MEDS: ACETAMINOPHEN 500 MG TAB (TYLENOL) PO SCH ×2 (00:28→06:02)
[2017-05-11 05:20] VITALS: BP 144/83
[2017-05-11] MEDS: inSUlin (REGULAR) HUMAN 1 UNIT/0.01 ML (CHARGE PER UNIT) SC SCH ×4 (06:02→20:42)
[2017-05-11] MEDS: PANTOPRAZOLE 40 MG (PROTONIX) TAB PO SCH (06:02)
[2017-05-11] MEDS: LACTOBACILLUS Acidoph/Bulgar (LACTINEX/FLORANEX) TAB PO SCH ×3 (06:02→17:30)
[2017-05-11] MEDS: CALCIUM CARB + VIT D 600 MG (CALCARB + D) TAB PO SCH ×2 (06:02→17:32)
[2017-05-11] MEDS: LOPERAMIDE 2 MG (IMODIUM) CAP PO PRN (06:05)
[2017-05-11 06:10] LABS: INR 3.1 (0.8-1.4); PROTHROMBIN TIME PATIENT 31.8 SEC (12.2-14.7)
[2017-05-11] MEDS: CARVEDILOL 12.5 MG (COREG) TABLET PO SCH ×2 (08:51→20:41)
[2017-05-11] MEDS: MICONAZOLE 2% POWDER (DESENEX AF) 90 GM TOP SCH ×2 (08:52→20:43)
[2017-05-11] MEDS: DICLOFENAC 1% GEL 100 GM (VOLTAREN) TUBE TOP SCH ×4 (08:52→20:43)
--- NOTE | 2017-05-11 09:52 | Occupational Ther Daily Note ---
OT Current Status-Daily Note Subjective Pt sitting in chair, agrees to treatment. Pt reports left hip and knee pain, states she's already had pain medication this morning. Mental Status/Objective Functional [place] Measure 0=Not Assessed/NA 4=Minimal Assistance 1=Total Assistance 5=Supervision or Setup 2=Maximal Assistance 6=Modified [place] 3=Moderate Assistance 7=Complete [place] ADL-Treatment Pt requests shower this morning. Sit to stand from chair with minimal assistance. Gait to restroom with FWW. Transfer to walk in shower with minimal assistance for balance. Pt doffed clothing with SBA. Uses dressing stick to doff pants and socks. Seated bathing completed with increased time. Upper body bathing completed with set up. Pt requires assist to wash lower legs and feet. Don pullover shirt with set up. Pt used document manager to start Depends and pants over feet. Completed lower body dressing with minimal assistance for balance during standing for pant hike. Pt donned socks with minimal assistance using sock aid. Dons slip on shoes with set up using long handled shoe horn. Pt combed hair while standing at sink with SBA. Functional [place] Measure 0=Not Assessed/NA 4=Minimal Assistance 1=Total Assistance 5=Supervision or Setup 2=Maximal Assistance 6=Modified [place] 3=Moderate Assistance 7=Complete IndependenceIRFPAI Quality Coding Scale 6 Independent with activity with or without an assistive device 5 Patient requires set up or clean up by helper. Patient completes activity by themselves 4 Supervision or touching assist (CGA). [place] provide cues , steadying assist 3 The helper provides less than half the effort to complete the activity 2 The helper provides more than half the effort to complete the activity 1 Dependent. The helper does all the effort to complete an activity 7 Patient refused to complete or attempt activity 9 The patient did not perform the activity before the current illness or injury 88 Not attempted due to Medical conditions or safety concerns Grooming (FIM): 5 Bathing (FIM): 4 Shower/Bathe Self (QC): 3 Upper Body (FIM): 5 Upper Body Dressing (QC): 5 Lower Body Dressing (FIM): 4 Lower Body Dressing (QC): 3 On/Off Footwear (QC): 3 Other Treatment Pt completed bilateral UE exercises to increase strength needed for ADLs and transfers. Pt performed shoulder flexion, abduction, biceps curls, and triceps extension exercises x15 reps with minimal resistance (yellow) theraband. Rest breaks between exercises. Occasional cues for proper exercise technique. Pt sitting in chair with needs met after session. OT Short Term Goals Short Term Goals Time Frame: May 15, 2017 Bathing(FIM): 4 Upper Body Dressing(FIM): 5 Lower Body Dressing(FIM): 4 Toileting(FIM): 4 Toilet/Commode Transfer(FIM): 5 Shower Transfer(FIM): 4 Additional Short Term Goals: 1-Demonstrate ADL Tasks, 2-Verbalize Understanding , 3-ImproveStrength/Issac 1=Demonstrate adherence to instructed precautions during ADL tasks. 2=Patient will verbalize/demonstrate understanding of assistive devices/ modifications for ADL. 3=Patient will improve strength/tolerance for activity to enable patient to perform ADL's. OT Information Management Specialist Goals Information Management Specialist Goals Time Frame: May 29, 2017 Eating (FIM): 6 Eating (QC): 6 Groomin Oral Hygiene (QC): 6 Bathing(FIM): 5 Shower/Bathe Self (QC): 5 Upper Body Dressing(FIM): 6 Upper Body Dressing (QC): 6 Lower Body Dressing(FIM): 5 Lower Body Dressing (QC): 5 On/Off Footwear (QC): 5 Toileting(FIM): 6 Toileting Hygiene (QC): 6 Toilet/Commode Transfer(FIM): 6 Toilet/Commode Transfer (QC): 6 Shower Transfer(FIM): 5 Additional Goals: 1-Demonstrate ADL Tasks, 2-Verbalize Understanding, 3- ImproveStrength/Issac 1=Demonstrate adherence to instructed precautions during ADL tasks. 2=Patient will verbalize/demonstrate understanding of assistive devices/ modifications for ADL. 3=Patient will improve strength/tolerance for activity to enable patient to perform ADL's. OT Education/Plan Discharge Recommendations Plan/Recommendations: Continue POC Treatment Plan/Plan of Care Patient would benefit from OT for education, treatment and training to promote independence in ADL's, mobility, safety and/or upper extremity function for ADL' s. Plan of Care: ADL Retraining, Functional Mobility, Group Exercise/Act as Ind, UE Funct Exercise/Act Treatment Duration: May 29, 2017 Frequency: At least 5 of 7 days/Wk (IRF) Estimated Hrs Per Day: 1.5 hours per day Agreement: Yes Rehab Potential: Fair Time/GCodes Start Time: 08:00 Stop Time: 09:00 Total Time Billed (hr/min): 60 Billed Treatment Time 1 visit, ADLx3(45minutes), EX(15minutes) BRIGHT SANTIAGO OT May 11, 2017 09:52
--- NOTE | 2017-05-11 10:12 | Physical Therapy Daily Note ---
PT Daily Note-Current Subjective Pt. c/o pain in left hip at 9/10 before Rx. States she will try but doesnt feel optimistic. After 60ft gt x 2 and seated exercise pt. requests to go back to bed with ice on left hip. Requested nursing put Voltaren on her left knee. Pain Numeric Pain Scale: 8 Location: Left Location Body Site: Hip Pain Description: Stabbing Mental Status Patient Orientation: Normal For Age Transfers Functional [place] Measure 0=Not Assessed/NA 4=Minimal Assistance 1=Total Assistance 5=Supervision or Setup 2=Maximal Assistance 6=Modified [place] 3=Moderate Assistance 7=Complete IndependenceIRFPAI Quality Coding Scale 6 Independent with activity with or without an assistive device 5 Patient requires set up or clean up by helper. Patient completes activity by themselves 4 Supervision or touching assist (CGA). [place] provide cues , steadying assist 3 The helper provides less than half the effort to complete the activity 2 The helper provides more than half the effort to complete the activity 1 Dependent. The helper does all the effort to complete an activity 7 Patient refused to complete or attempt activity 9 The patient did not perform the activity before the current illness or injury 88 Not attempted due to Medical conditions or safety concerns Transfers (B, C, W/C) (FIM): 3 Scootin Rollin Supine to/from Sit: 3 Sit to/from Stand: 5 sit to stand very slow and careful . sit to supine mod assist LLE. Weight Bearing Right Lower Extremity: Right Full Weight Bearing Left Lower Extremity: Left Weight Bearing/Tolerated Gait Training Does the Patient Walk?: Yes Gait (FIM): 2 Distance (FIM): 1=118-72 ft (60-70 ft x2) Gait Level of Assist: 5 Gait Persons Needed: 1 Gait Assistive Device: FWW slow, flexed at trunk, small steps Exercises Supine Ex: Ankle pumps, Quad Set, Rolling, Glut sets, Heel Slides, Short Arc Quads, Scooting, Straight leg raise (assist), Hip abd/add (assist) Supine Reps: 15 Seated Therapy Exercises: Ankle pumps, Sit to stand, Long arc quads, Hip abd/ add Seated Reps: 20 Assessment Current Status: Fair Progress pain c/o limit participation this date. PT Short Term Goals Short Term Goals Time Frame: May 15, 2017 Gait (FIM): 5 Gait Distance Comment: 200' Gait Level of Assist: 5 PT Front Man Goals Front Man Goals PT Front Man Goals Time Frame: May 29, 2017 Transfers (B,C,W/C) (FIM): 5 Sit to Lying (QC): 4 Lying-Sitting on Side/Bed(QC): 4 Sit to Stand (QC): 4 Rollin Roll Left to Right (QC): 4 Chair/Sbf-bn-Nsvop Xfer(QC): 4 Car Transfer (QC): 4 Gait (FIM): 5 Distance: 300' Walk 10 feet (QC): 4 Walk 10ft-Uneven Surface(QC): 4 Walk 50ft with 2 Turns (QC): 4 Walk 150 ft (QC): 4 Gait Level of Assist: 5 Gait Assistive Device: FWW Stairs (FIM): 2 # of Steps: 4 1 Step (curb) (QC): 4 Stairs Level Of Assist: 4 (CGA) PT Plan Treatment/Plan Treatment Plan: Continue Plan of Care Treatment Plan: Bed Mobility, Education, Functional Activity Issac, Functional Strength, Group Therapy, Gait, Safety, Therapeutic Exercise, Transfers Treatment Duration: May 29, 2017 Frequency: At least 5 of 7 days/Wk (IRF) Estimated Hrs Per Day: 1.5 hours per day Patient and/or Family Agrees t: Yes Safety Risks/Education Patient Education: Gait Training, Transfer Techniques, Correct Positioning, Disease Process, Safety Issues Teaching Recipient: Patient Teaching Methods: Demonstration, Discussion Response to Teaching: Verbalize Understanding, Return Demonstration, Reinforcement Needed Time/GCodes Time In: 930 Time Out: 1015 Total Billed Treatment Time: 45 Total Billed Treatment 1,FA15m,EX15m,GT15m G Codes Necessary: GABRIELLE Lake USER EXPERIENCE ANALYST May 11, 2017 10:12
--- NOTE | 2017-05-11 11:05 | PM & R (SOAP) Progress Note ---
Subjective Time Seen by Provider: 10:35 Subjective/Events-last exam Patient was seen in her room this AM Patient mod assist for transfers Patient still reports pain at 6/10 with Gait but Ok at rest with scheduled meds as per DR weiner RX Objective Exam Last Set of Vital Signs Vital Signs Date Time Temp Pulse Resp B/P (MAP) Pulse Ox O2 Delivery O2 Flow Rate FiO2 05/11/17 09:21 Room Air 05/11/17 05:20 97.1 77 20 144/83 (103) 98 Capillary Refill : Less Than 3 Seconds I&O Intake and Output 05/11/17 00:00 Intake Total 1210 ml Balance 1210 ml Intake Oral 1210 ml # Voids 5 # Bowel Movements 1 General: Alert, Oriented X3, Cooperative, No Acute Distress HEENT: Atraumatic, PERRLA, EOMI, Mucous Memb Moist/[place] Neck: Supple, No JVD Lungs: Clear to Auscultation Heart: Regular Rate Abdomen: Normal Bowel Sounds, Soft, No Tenderness Extremities: Other (trace edema) Neuro: Other (weakness at hip s/p repair) Results Lab Laboratory Tests 05/08/17 14:05: Glucometer 406*H 05/08/17 15:48: Glucometer 357H 05/08/17 20:30: Glucometer 66L 05/08/17 20:58: Glucometer 52*L 05/08/17 21:09: Glucometer 52*L 05/08/17 21:18: Glucometer 54*L 05/08/17 21:27: Glucometer 68L 05/08/17 21:57: Glucometer 84 05/09/17 00:10: Glucometer 230H 05/09/17 02:35: Glucometer 312H 05/09/17 05:10: Glucometer 270H 05/09/17 05:15: Prothrombin Time 36.1H, INR Comment 3.7H 05/09/17 10:48: Glucometer 179H 05/09/17 16:02: Glucometer 133H 05/09/17 20:28: Glucometer 283H 05/10/17 04:47: Glucometer 80 05/10/17 05:28: Prothrombin Time 34.4H, INR Comment 3.4H 05/10/17 11:04: Glucometer 328H 05/10/17 16:01: Glucometer 121H 05/10/17 20:14: Glucometer 314H 05/11/17 05:08: Glucometer 35*L 05/11/17 05:25: Prothrombin Time 31.8H, INR Comment 3.1H 05/11/17 05:28: Glucometer 64L 05/11/17 06:01: Glucometer 96 Assessment/Plan Assessment Left intertrochanteric hip fracture s/p fal s/p ORIF Chronic coumadin therapy INR elevated coumadin on hold HTN on home meds controlled DM Meds adjusted by PCP GERD on protonix Memory loss with hx of lacunar strokes Acute on chronic anemia from recent surgery s/p transfusion DJD left knee Voltaran gel Diarrhea improved with meds Plan Continue PT/OT F/U with PCP and ortho prn Team Conference held 05-09-17-See report for full functional update and POC and ELOS Changed schedule for AM dose of Tylenol and tramadol-Pain management Next Team Conference 05-16-17 JAREN ADDISON MD May 11, 2017 11:05
--- NOTE | 2017-05-11 11:25 | Progress Note (SOAP) ---
Subjective Date Seen by Provider: May 11, 2017 Time Seen by Provider: 11:24 Subjective/Events-last exam Fwup Left hip fracture, DM--insulin requiring, Chronic coumadin therapy, Hypertension. Doing well with PT. Objective Exam Vital Signs Date Time Temp Pulse Resp B/P (MAP) Pulse Ox O2 Delivery O2 Flow Rate FiO2 05/11/17 09:21 Room Air 05/11/17 05:20 97.1 77 20 144/83 (103) 98 Room Air 05/10/17 20:50 Room Air 05/10/17 16:52 97.1 77 19 157/73 (101) 98 Room Air I & O 05/11/17 07:00 Intake Total 1260 ml Balance 1260 ml Capillary Refill : Less Than 3 Seconds General Appearance: No Apparent Distress Neck: Supple Respiratory: Lungs Clear Cardiovascular: Regular Rate, Rhythm Extremity: Non Tender, No Calf Tenderness, Pedal Edema (chronic) Neurologic/Psychiatric: Alert, Oriented x3 Results Lab Laboratory Tests 05/10/17 16:01: Glucometer 121H 05/10/17 20:14: Glucometer 314H 05/11/17 05:08: Glucometer 35*L 05/11/17 05:25: Prothrombin Time 31.8H, INR Comment 3.1H 05/11/17 05:28: Glucometer 64L 05/11/17 06:01: Glucometer 96 05/11/17 11:11: Glucometer 323H Assessment/Plan Assessment/Plan Assess & Plan/Chief Complaint 1. Left intertrochanteric hip fracture--S/P ORIF, pain control, PT/OT 2. Chronic Coumadin Therapy for Chronic DVT of LLE--Continue coumadin at lower dose and monitor PT/INR 3. Hypertension--back on home meds 4. Diabetes mellitus--insulin requiring--continue levemir and continue SSI 5. GERD--resumed protonix 6. Memory Loss--recent CT scan shows microvascular changes with history of lacunar infarcts and has a family history of alzheimers--started aricept 7. Acute on Chronic Anemia from recent surgery--S/P transfusion, monitor H/H 8. Left knee pain/OA--stable 9. Right Hip Pain--likely compensatory from left hip fracture 10. Diarrhea--improved with addition of lactobacillus and immodium Clinical Quality Measures DVT/VTE Risk/Contraindication: Risk Factor Score Per Nursin RFS Level Per Nursing on Admit: 4+=Very High SHAKEEL BRUCE DO May 11, 2017 11:25 am
--- NOTE | 2017-05-11 14:37 | Therapy Group Daily Note ---
Therapy Daily Group Note Patient Education Topic Other List Below (the 5 senses) Other/Notes Pt. participated in PT OT group this date. Pts. introduced selves and shared their favorite smell, taste or sight. Pt. ambulated to from with FWW w platform and CGA to SBA. Pts. were educated RE: Acute Rehab purpose and practices . Pts. contributed during education re: the 5 senses, how they diminish, how to manage this as well as activities in stereognition (items in pillow case to feel and name) and sound recognition (recordings of different sounds to ID). Pt. to room to bed after group with de los santos at hand as well as ice packs to left hip and knee as requested. Start Time: 13:00 Stop Time: 14:15 Total Billed Treatment Time: 75 Total Billed Treatment 1,GRP GABRIELLE DUFF SANITARY AIDE May 11, 2017 14:37
[2017-05-11] MEDS: warFARin 3 MG (COUMADIN) TAB PO SCH (17:30)
[2017-05-11] MEDS: ACETAMINOPHEN 500 MG TAB (TYLENOL) PO PRN (17:30)
[2017-05-11 18:50] VITALS: BP 150/77
[2017-05-11] MEDS: ATORVASTATIN 10 MG (LIPITOR) TABLET PO SCH (20:41)
[2017-05-11] MEDS: DONEPEZIL 5 MG (ARICEPT) TAB PO SCH (20:41)
[2017-05-11] MEDS ORDERED: inSUlin DETERMIR 1 UNIT/0.01 ML (LEVEMIR) CHARGE PER UNIT SQ SCH (21:00)
[2017-05-12 03:00] VITALS: BP 151/78
[2017-05-12 05:22] LABS: BASOPHILS % (AUTO) 1 % (0-10); EOSINOPHILS # (AUTO) 0.3 10^3/uL (0.0-0.3); EOSINOPHILS % (AUTO) 5 % (0-10); HEMATOCRIT 31 % (35-52); HEMOGLOBIN 10.2 G/DL (11.5-16.0); LYMPHOCYTES # (AUTO) 1.4 X 10^3 (1.0-4.0); LYMPHOCYTES % (AUTO) 21 % (12-44); MEAN CORPUSCULAR HEMOGLOBIN 30 PG (25-34); MEAN CORPUSCULAR HGB CONC 33 G/DL (32-36); MEAN CORPUSCULAR VOLUME 91 FL (80-99); MEAN PLATELET VOLUME 10.2 FL (7.4-10.4); MONOCYTES # (AUTO) 0.7 X 10^3 (0.0-1.0); MONOCYTES % (AUTO) 11 % (0-12); NEUTROPHILS # (AUTO) 4.2 X 10^3 (1.8-7.8); NEUTROPHILS % (AUTO) 64 % (42-75); PLATELET COUNT 442 10^3/uL (130-400); RED BLOOD COUNT 3.45 10^6/uL (4.35-5.85); RED CELL DISTRIBUTION WIDTH 13.7 % (10.0-14.5); WHITE BLOOD COUNT 6.6 10^3/uL (4.3-11.0)
[2017-05-12] MEDS: inSUlin (REGULAR) HUMAN 1 UNIT/0.01 ML (CHARGE PER UNIT) SC SCH ×2 (05:29→12:09)
[2017-05-12] MEDS: DICLOFENAC 1% GEL 100 GM (VOLTAREN) TUBE TOP SCH ×4 (05:54→20:33)
[2017-05-12 06:00] LABS: INR 3.4 (0.8-1.4); PROTHROMBIN TIME PATIENT 34.3 SEC (12.2-14.7)
[2017-05-12] MEDS: CALCIUM CARB + VIT D 600 MG (CALCARB + D) TAB PO SCH ×2 (06:00→17:17)
[2017-05-12] MEDS: ACETAMINOPHEN 500 MG TAB (TYLENOL) PO PRN ×3 (06:00→18:50)
[2017-05-12] MEDS: LACTOBACILLUS Acidoph/Bulgar (LACTINEX/FLORANEX) TAB PO SCH ×3 (06:00→17:17)
[2017-05-12] MEDS: PANTOPRAZOLE 40 MG (PROTONIX) TAB PO SCH (06:00)
[2017-05-12 08:30] VITALS: BP 137/77
[2017-05-12] MEDS: CARVEDILOL 12.5 MG (COREG) TABLET PO SCH ×2 (08:30→20:32)
[2017-05-12] MEDS: MICONAZOLE 2% POWDER (DESENEX AF) 90 GM TOP SCH ×2 (08:32→20:33)
--- NOTE | 2017-05-12 08:36 | Physical Therapy Daily Note ---
PT Daily Note-Current Subjective Patient is in bed and c/o left hip pain. Agrees to PT. Pain Numeric Pain Scale: 5-Moderate Pain Location: Left Location Body Site: Hip Pain Description: Ache Comment: pain medication issued Mental Status Patient Orientation: Normal For Age Transfers Functional [place] Measure 0=Not Assessed/NA 4=Minimal Assistance 1=Total Assistance 5=Supervision or Setup 2=Maximal Assistance 6=Modified [place] 3=Moderate Assistance 7=Complete IndependenceIRFPAI Quality Coding Scale 6 Independent with activity with or without an assistive device 5 Patient requires set up or clean up by helper. Patient completes activity by themselves 4 Supervision or touching assist (CGA). [place] provide cues , steadying assist 3 The helper provides less than half the effort to complete the activity 2 The helper provides more than half the effort to complete the activity 1 Dependent. The helper does all the effort to complete an activity 7 Patient refused to complete or attempt activity 9 The patient did not perform the activity before the current illness or injury 88 Not attempted due to Medical conditions or safety concerns Transfers (B, C, W/C) (FIM): 5 Scootin Rollin Roll Left to Right (QC): 5 Supine to/from Sit: 5 Sit to/from Stand: 5 Sit to Lying (QC): 5 Sit to Stand (QC): 5 Weight Bearing Right Lower Extremity: Right Full Weight Bearing Left Lower Extremity: Left Weight Bearing/Tolerated Gait Training Does the Patient Walk?: Yes Gait (FIM): 2 Distance (FIM): 2=623-37 ft Distance: 125' x 2 Walk 10 feet (QC): 5 Walk 50 ft with 2 Turns(QC): 5 Gait Level of Assist: 5 Gait Assistive Device: FWW slow, antalgic, step to gait sequence Exercises Supine Ex: Ankle pumps, Quad Set, Heel Slides Supine Reps: 10 Seated Therapy Exercises: Ankle pumps, Long arc quads Seated Reps: 15 (2 sets to increase strength) NuStep Minutes: 15 NuStep Workload: 4 (to improve functional strength and mobility) Assessment Patient progressing with treatment plan. PT will continue to increase as patient tolerates. Patient is motivated with progress. PT Short Term Goals Short Term Goals Time Frame: May 15, 2017 Gait (FIM): 5 Gait Distance Comment: 200' Gait Level of Assist: 5 PT Health Education Specialist Goals Health Education Specialist Goals PT Health Education Specialist Goals Time Frame: May 29, 2017 Transfers (B,C,W/C) (FIM): 5 Sit to Lying (QC): 4 Lying-Sitting on Side/Bed(QC): 4 Sit to Stand (QC): 4 Rollin Roll Left to Right (QC): 4 Chair/Goi-hh-Kyjih Xfer(QC): 4 Car Transfer (QC): 4 Gait (FIM): 5 Distance: 300' Walk 10 feet (QC): 4 Walk 10ft-Uneven Surface(QC): 4 Walk 50ft with 2 Turns (QC): 4 Walk 150 ft (QC): 4 Gait Level of Assist: 5 Gait Assistive Device: FWW Stairs (FIM): 2 # of Steps: 4 1 Step (curb) (QC): 4 Stairs Level Of Assist: 4 (CGA) PT Plan Treatment/Plan Treatment Plan: Continue Plan of Care Treatment Plan: Bed Mobility, Education, Functional Activity Issac, Functional Strength, Group Therapy, Gait, Safety, Therapeutic Exercise, Transfers Treatment Duration: May 29, 2017 Frequency: At least 5 of 7 days/Wk (IRF) Estimated Hrs Per Day: 1.5 hours per day Patient and/or Family Agrees t: Yes Time/GCodes Time In: 800 Time Out: 830 Total Billed Treatment Time: 30 Total Billed Treatment 1 visit GT 10 min EX 20 min CECILIA DE OLIVEIRA PT May 12, 2017 08:36
[2017-05-12] MEDS: LOPERAMIDE 2 MG (IMODIUM) CAP PO PRN (12:56)
[2017-05-12] MEDS: warFARin 2 MG (COUMADIN) TAB PO SCH (17:17)
[2017-05-12] MEDS: inSUlin ASPART (NovoLOG) 1 UNIT/0.01 ML (CHARGE PER UNIT) SC SCH (17:20)
[2017-05-12 17:59] VITALS: BP 169/91
[2017-05-12] MEDS: ATORVASTATIN 10 MG (LIPITOR) TABLET PO SCH (20:32)
[2017-05-12] MEDS: inSUlin DETERMIR 1 UNIT/0.01 ML (LEVEMIR) CHARGE PER UNIT SQ SCH (20:32)
[2017-05-12] MEDS: DONEPEZIL 5 MG (ARICEPT) TAB PO SCH (20:32)
[2017-05-13] MEDS: ACETAMINOPHEN 500 MG TAB (TYLENOL) PO PRN ×3 (05:20→22:15)
[2017-05-13 05:46] LABS: INR 2.8 (0.8-1.4); PROTHROMBIN TIME PATIENT 29.7 SEC (12.2-14.7)
[2017-05-13 05:53] VITALS: BP 156/81
[2017-05-13] MEDS: PANTOPRAZOLE 40 MG (PROTONIX) TAB PO SCH (06:11)
[2017-05-13] MEDS: CALCIUM CARB + VIT D 600 MG (CALCARB + D) TAB PO SCH ×2 (06:11→17:50)
[2017-05-13] MEDS: LACTOBACILLUS Acidoph/Bulgar (LACTINEX/FLORANEX) TAB PO SCH ×3 (06:11→17:07)
[2017-05-13] MEDS: CARVEDILOL 12.5 MG (COREG) TABLET PO SCH ×2 (08:31→21:00)
[2017-05-13] MEDS: inSUlin ASPART (NovoLOG) 1 UNIT/0.01 ML (CHARGE PER UNIT) SC SCH ×2 (08:34→17:09)
[2017-05-13] MEDS: DICLOFENAC 1% GEL 100 GM (VOLTAREN) TUBE TOP SCH ×4 (08:35→21:01)
[2017-05-13] MEDS: MICONAZOLE 2% POWDER (DESENEX AF) 90 GM TOP SCH ×2 (08:35→21:01)
[2017-05-13] MEDS: LOPERAMIDE 2 MG (IMODIUM) CAP PO PRN ×2 (10:52→15:26)
[2017-05-13] MEDS ORDERED: inSUlin ASPART (NovoLOG) 1 UNIT/0.01 ML (CHARGE PER UNIT) SC NR (12:45)
[2017-05-13 17:37] VITALS: BP 173/82
[2017-05-13] MEDS: warFARin 2 MG (COUMADIN) TAB PO SCH (17:50)
[2017-05-13] MEDS: ATORVASTATIN 10 MG (LIPITOR) TABLET PO SCH (21:00)
[2017-05-13] MEDS: DONEPEZIL 5 MG (ARICEPT) TAB PO SCH (21:00)
[2017-05-13] MEDS: inSUlin DETERMIR 1 UNIT/0.01 ML (LEVEMIR) CHARGE PER UNIT SQ SCH (21:00)
[2017-05-14 04:57] VITALS: BP 169/73
[2017-05-14 05:12] VITALS: BP 169/73
[2017-05-14] MEDS: PANTOPRAZOLE 40 MG (PROTONIX) TAB PO SCH (06:00)
[2017-05-14] MEDS: CALCIUM CARB + VIT D 600 MG (CALCARB + D) TAB PO SCH ×2 (06:00→16:25)
[2017-05-14] MEDS: LACTOBACILLUS Acidoph/Bulgar (LACTINEX/FLORANEX) TAB PO SCH ×3 (06:00→16:12)
[2017-05-14] MEDS: DICLOFENAC 1% GEL 100 GM (VOLTAREN) TUBE TOP SCH ×4 (06:00→20:57)
[2017-05-14] MEDS: ACETAMINOPHEN 500 MG TAB (TYLENOL) PO PRN ×3 (06:01→21:05)
[2017-05-14] MEDS: inSUlin ASPART (NovoLOG) 1 UNIT/0.01 ML (CHARGE PER UNIT) SC SCH ×3 (06:41→17:30)
[2017-05-14 06:44] LABS: INR 2.3 (0.8-1.4); PROTHROMBIN TIME PATIENT 25.3 SEC (12.2-14.7)
[2017-05-14] MEDS: CARVEDILOL 12.5 MG (COREG) TABLET PO SCH ×2 (08:57→20:53)
[2017-05-14] MEDS: MICONAZOLE 2% POWDER (DESENEX AF) 90 GM TOP SCH ×2 (09:50→20:57)
--- NOTE | 2017-05-14 11:07 | Physical Therapy Daily Note ---
PT Daily Note-Current Subjective Pt. c/o she is miserable and has pain in left knee and hip at 9-10/10. States sometimes pain meds help but she "cannot" walk this morning. Agrees to TRF short dist gait to bed and lay down for exercise and positioning and ice. Knee XR ordered per nursing. Pain Numeric Pain Scale: 9 Location: Left Location Body Site: Knee Pain Description: Pressure Appearance left knee bruised, entire thigh , knee and hip moderately swollen Transfers Functional [place] Measure 0=Not Assessed/NA 4=Minimal Assistance 1=Total Assistance 5=Supervision or Setup 2=Maximal Assistance 6=Modified [place] 3=Moderate Assistance 7=Complete IndependenceIRFPAI Quality Coding Scale 6 Independent with activity with or without an assistive device 5 Patient requires set up or clean up by helper. Patient completes activity by themselves 4 Supervision or touching assist (CGA). [place] provide cues , steadying assist 3 The helper provides less than half the effort to complete the activity 2 The helper provides more than half the effort to complete the activity 1 Dependent. The helper does all the effort to complete an activity 7 Patient refused to complete or attempt activity 9 The patient did not perform the activity before the current illness or injury 88 Not attempted due to Medical conditions or safety concerns Transfers (B, C, W/C) (FIM): 3 Scootin Rollin Supine to/from Sit: 3 Sit to/from Stand: 5 secondary to pain pt. needs assist axel Mccullough as she state that if her legs are it is more painful Weight Bearing Right Lower Extremity: Right Full Weight Bearing Left Lower Extremity: Left Weight Bearing/Tolerated Gait Training Does the Patient Walk?: Yes Gait (FIM): 1 Distance (FIM): 1=up to 49 ft (0ft) Gait Level of Assist: 4 Gait Persons Needed: 1 Gait Assistive Device: FWW c/o pain increases during attempts to wt bear on LLE Exercises Supine Ex: Ankle pumps, Quad Set, Rolling, Glut sets, Heel Slides, Short Arc Quads, Scooting, Straight leg raise (assist left), Hip abd/add (assist left) Seated Therapy Exercises: Ankle pumps, Sit to stand, Long arc quads Seated Reps: 5 Treatments ice packs freshened , pt. applies them herself to hip and knee left Assessment Current Status: Poor Progress pain greatly limits rehab participation this date PT Short Term Goals Short Term Goals Time Frame: May 15, 2017 Gait (FIM): 5 Gait Distance Comment: 200' Gait Level of Assist: 5 PT Shelter Goals Greenkeeper Goals PT Greenkeeper Goals Time Frame: May 29, 2017 Transfers (B,C,W/C) (FIM): 5 Sit to Lying (QC): 4 Lying-Sitting on Side/Bed(QC): 4 Sit to Stand (QC): 4 Rollin Roll Left to Right (QC): 4 Chair/Xux-wb-Klozd Xfer(QC): 4 Car Transfer (QC): 4 Gait (FIM): 5 Distance: 300' Walk 10 feet (QC): 4 Walk 10ft-Uneven Surface(QC): 4 Walk 50ft with 2 Turns (QC): 4 Walk 150 ft (QC): 4 Gait Level of Assist: 5 Gait Assistive Device: FWW Stairs (FIM): 2 # of Steps: 4 1 Step (curb) (QC): 4 Stairs Level Of Assist: 4 (CGA) PT Plan Treatment/Plan Treatment Plan: Continue Plan of Care Treatment Plan: Bed Mobility, Education, Functional Activity Issac, Functional Strength, Group Therapy, Gait, Safety, Therapeutic Exercise, Transfers Treatment Duration: May 29, 2017 Frequency: At least 5 of 7 days/Wk (IRF) Estimated Hrs Per Day: 1.5 hours per day Patient and/or Family Agrees t: Yes Safety Risks/Education Patient Education: Gait Training, Transfer Techniques, Correct Positioning, Safety Issues Teaching Recipient: Patient Teaching Methods: Demonstration, Discussion Response to Teaching: Verbalize Understanding, Return Demonstration, Reinforcement Needed Time/GCodes Time In: 1015 Time Out: 1100 Total Billed Treatment Time: 45 Total Billed Treatment 1,FA20,EX25 G Codes Necessary: GABRIELLE Lake CARE MANAGEMENT ASSOCIATE May 14, 2017 11:07
--- NOTE | 2017-05-14 11:52 | Occupational Ther Daily Note ---
OT Current Status-Daily Note Subjective Pt alert, lying in bed. Pt c/o pain with B knees, nrsg reported that pt is getting xray at noon. Pt agreed to therapy. Mental Status/Objective Patient Orientation: Person, Place, Time, Situation Functional [place] Measure 0=Not Assessed/NA 4=Minimal Assistance 1=Total Assistance 5=Supervision or Setup 2=Maximal Assistance 6=Modified [place] 3=Moderate Assistance 7=Complete [place] ADL-Treatment Pt completed bed bath after set up. Requested to keep hospital gown on until after xray. Pt was able to set self up with lunch and use regular utensils to feed self and cut food. After therapy, pt lying in bed with call light/phone in reach. Nrsg present in room. All needs met in room. Functional [place] Measure 0=Not Assessed/NA 4=Minimal Assistance 1=Total Assistance 5=Supervision or Setup 2=Maximal Assistance 6=Modified [place] 3=Moderate Assistance 7=Complete IndependenceIRFPAI Quality Coding Scale 6 Independent with activity with or without an assistive device 5 Patient requires set up or clean up by helper. Patient completes activity by themselves 4 Supervision or touching assist (CGA). [place] provide cues , steadying assist 3 The helper provides less than half the effort to complete the activity 2 The helper provides more than half the effort to complete the activity 1 Dependent. The helper does all the effort to complete an activity 7 Patient refused to complete or attempt activity 9 The patient did not perform the activity before the current illness or injury 88 Not attempted due to Medical conditions or safety concerns Eating (FIM): 6 Eating (QC): 6 Other Treatment Pt completed 10 UE exercises using dowel wilian with 2# wt attached and medium resistance theraband, 1 set 10 reps of each. Pt worked on UE gross motor strength and fine motor strength for daily functional tasks. OT Short Term Goals Short Term Goals Time Frame: May 15, 2017 Bathing(FIM): 4 Upper Body Dressing(FIM): 5 Lower Body Dressing(FIM): 4 Toileting(FIM): 4 Toilet/Commode Transfer(FIM): 5 Shower Transfer(FIM): 4 Additional Short Term Goals: 1-Demonstrate ADL Tasks, 2-Verbalize Understanding , 3-ImproveStrength/Issac 1=Demonstrate adherence to instructed precautions during ADL tasks. 2=Patient will verbalize/demonstrate understanding of assistive devices/ modifications for ADL. 3=Patient will improve strength/tolerance for activity to enable patient to perform ADL's. OT Long-Term Goals Long-Term Goals Time Frame: May 29, 2017 Eating (FIM): 6 Eating (QC): 6 Groomin Oral Hygiene (QC): 6 Bathing(FIM): 5 Shower/Bathe Self (QC): 5 Upper Body Dressing(FIM): 6 Upper Body Dressing (QC): 6 Lower Body Dressing(FIM): 5 Lower Body Dressing (QC): 5 On/Off Footwear (QC): 5 Toileting(FIM): 6 Toileting Hygiene (QC): 6 Toilet/Commode Transfer(FIM): 6 Toilet/Commode Transfer (QC): 6 Shower Transfer(FIM): 5 Additional Goals: 1-Demonstrate ADL Tasks, 2-Verbalize Understanding, 3- ImproveStrength/Issac 1=Demonstrate adherence to instructed precautions during ADL tasks. 2=Patient will verbalize/demonstrate understanding of assistive devices/ modifications for ADL. 3=Patient will improve strength/tolerance for activity to enable patient to perform ADL's. OT Education/Plan Discharge Recommendations Plan/Recommendations: Continue POC Treatment Plan/Plan of Care Patient would benefit from OT for education, treatment and training to promote independence in ADL's, mobility, safety and/or upper extremity function for ADL' s. Plan of Care: ADL Retraining, Functional Mobility, Group Exercise/Act as Ind, UE Funct Exercise/Act Treatment Duration: May 29, 2017 Frequency: At least 5 of 7 days/Wk (IRF) Estimated Hrs Per Day: 1.5 hours per day Agreement: Yes Rehab Potential: Fair Time/GCodes Start Time: 11:00 Stop Time: 12:00 Total Time Billed (hr/min): 60 Billed Treatment Time 1 visit-ADL 2 (30 min) EX 2 (30 min) LAYA RICE May 14, 2017 11:52
--- NOTE | 2017-05-14 12:27 | Progress Note (SOAP) ---
Subjective Date Seen by Provider: May 14, 2017 Time Seen by Provider: 12:25 Subjective/Events-last exam Fwup Left hip fracture, DM--insulin requiring, Chronic coumadin therapy, Hypertension. BP has been elevated. Objective Exam Vital Signs Date Time Temp Pulse Resp B/P (MAP) Pulse Ox O2 Delivery O2 Flow Rate FiO2 05/14/17 08:35 Room Air 05/14/17 05:12 97.9 74 16 169/73 (105) 97 Room Air 05/14/17 04:57 97.9 74 16 169/73 (105) 97 Room Air 05/13/17 20:38 Room Air 05/13/17 17:37 97.2 71 20 173/82 (112) 97 Room Air I & O 05/14/17 07:00 Intake Total 1530 ml Balance 1530 ml Capillary Refill : Less Than 3 Seconds General Appearance: No Apparent Distress Neck: Supple Respiratory: Lungs Clear Cardiovascular: Regular Rate, Rhythm Gastrointestinal: normal bowel sounds, non tender, soft Extremity: Non Tender, No Calf Tenderness, Pedal Edema (chronic) Neurologic/Psychiatric: Alert, Oriented x3 Results Lab Laboratory Tests 05/13/17 12:32: Glucometer 158H 05/13/17 16:38: Glucometer 230H 05/13/17 20:12: Glucometer 314H 05/14/17 05:17: Glucometer 218H 05/14/17 06:18: Prothrombin Time 25.3H, INR Comment 2.3H 05/14/17 11:44: Glucometer 154H Assessment/Plan Assessment/Plan Assess & Plan/Chief Complaint 1. Left intertrochanteric hip fracture--S/P ORIF, pain control, PT/OT 2. 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 Hypertension--add cozaar 4. Diabetes mellitus--insulin requiring--continue levemir and continue SSI 5. GERD--resumed protonix 6. Memory Loss--recent CT scan shows microvascular changes with history of lacunar infarcts and has a family history of alzheimers--started aricept 7. Acute on Chronic Anemia from recent surgery--S/P transfusion, monitor H/H 8. Left knee pain/OA--stable 9. Right Hip Pain--likely compensatory from left hip fracture 10. Diarrhea--improved with addition of lactobacillus and immodium Clinical Quality Measures DVT/VTE Risk/Contraindication: Risk Factor Score Per Nursin RFS Level Per Nursing on Admit: 4+=Very High SHAKEEL BRUCE DO May 14, 2017 12:27
[2017-05-14] MEDS ORDERED: LOSARTAN 50 MG (COZAAR) TAB PO NR (12:30)
--- NOTE | 2017-05-14 13:46 | Diagnostic Imaging Report ---
INDICATION: Left knee pain and popping. TIME OF EXAMINATION: 12:37 PM. FINDINGS: Three views of the left knee demonstrate significant demineralization. Medial compartmental and patellofemoral compartmental degenerative change is seen. No fracture or dislocation is identified. No effusion is seen. IMPRESSION: Chronic changes. No acute bony abnormality is detected. Dictated by: Dictated on workstation # [id number]
[2017-05-14 14:15] VITALS: BP 176/70
--- NOTE | 2017-05-14 14:58 | Therapy Group Daily Note ---
Therapy Daily Group Note Patient Education Topic Other List Below (car transfers, home equipment) Exercises LE Seated Exercise, UE Exercise, Other (eye exercises) Other/Notes Pt transported via recliner to OT/PT group using FWW with CGA in [facility]. Group consisted of introductions (name, place born, hardest lesson learned), socialization, UE/LE seated exercises, eye exercises, memory activity , car transfers and home equipment. Pt was able to introduce self appropriately though unable to answer question. Pt listened attentively to peers introductions. Pt actively listened to education and was able to respond to questions and asked appropriate questions. Pt contributed to discussions throughout group. Pt unable to complete car transfer due to increased pain in B knees. Exercises completed without difficulty. Pt unable to find match in memory game and used strategy to assist finding match. Pt transported via recliner to room then pt requested to go to bathroom. After therapy, pt lying in bed with call light/phone in reach. All needs met in room. Start Time: 13:00 Stop Time: 14:20 Total Billed Treatment Time: 80 Total Billed Treatment 1-GRP LAYA RICE May 14, 2017 14:58
[2017-05-14 16:35] VITALS: BP 161/72
[2017-05-14] MEDS ORDERED: warFARin 3 MG (COUMADIN) TAB PO SCH (18:00)
[2017-05-14] MEDS: ATORVASTATIN 10 MG (LIPITOR) TABLET PO SCH (20:56)
[2017-05-14] MEDS: DONEPEZIL 5 MG (ARICEPT) TAB PO SCH (20:56)
[2017-05-14] MEDS: inSUlin DETERMIR 1 UNIT/0.01 ML (LEVEMIR) CHARGE PER UNIT SQ SCH (20:56)
[2017-05-15] MEDS: LACTOBACILLUS Acidoph/Bulgar (LACTINEX/FLORANEX) TAB PO SCH ×3 (06:02→16:21)
[2017-05-15] MEDS: CALCIUM CARB + VIT D 600 MG (CALCARB + D) TAB PO SCH ×2 (06:02→16:21)
[2017-05-15] MEDS: PANTOPRAZOLE 40 MG (PROTONIX) TAB PO SCH (06:03)
[2017-05-15] MEDS: inSUlin ASPART (NovoLOG) 1 UNIT/0.01 ML (CHARGE PER UNIT) SC SCH ×3 (06:34→17:28)
[2017-05-15 07:04] VITALS: BP 150/73
[2017-05-15 07:07] LABS: PROTHROMBIN TIME PATIENT 22.9 SEC (12.2-14.7)
[2017-05-15] MEDS: CARVEDILOL 12.5 MG (COREG) TABLET PO SCH ×2 (08:27→20:47)
[2017-05-15] MEDS: MICONAZOLE 2% POWDER (DESENEX AF) 90 GM TOP SCH ×2 (08:27→20:53)
[2017-05-15] MEDS: DICLOFENAC 1% GEL 100 GM (VOLTAREN) TUBE TOP SCH ×4 (08:27→20:53)
[2017-05-15] MEDS ORDERED: LOSARTAN 50 MG (COZAAR) TAB PO SCH (09:00)
[2017-05-15] MEDS: LOPERAMIDE 2 MG (IMODIUM) CAP PO PRN ×2 (09:58→16:21)
[2017-05-15] MEDS: ACETAMINOPHEN 500 MG TAB (TYLENOL) PO PRN ×2 (09:58→16:22)
--- NOTE | 2017-05-15 10:06 | Occupational Ther Daily Note ---
OT Current Status-Daily Note Subjective Pt sitting in chair, agrees to treatment. Pt reports 3/10 pain in left knee. Mental Status/Objective Functional [place] Measure 0=Not Assessed/NA 4=Minimal Assistance 1=Total Assistance 5=Supervision or Setup 2=Maximal Assistance 6=Modified [place] 3=Moderate Assistance 7=Complete [place] ADL-Treatment Pt requests shower this morning. Sit to stand with supervision. Gait to restroom with FWW. Transfer to shower bench in walk in shower with supervision. Pt doffed Depends and socks with SBA using dressing stick. Doffed gown without assistance. Pt completed seated bathing using hand held shower. Pt required assist to wash/dry lower legs and feet, but is able to wash other areas with SBA. Don pullover shirt with set up. Pt used leadership development consultant to start Depends and pants over feet. Stood with supervision for balance during pant hike. Assist required to don FELIPE hose. Pt donned socks with SBA using sock aid and shoes with SBA using dressing stick. Pt combed hair with modified independence. Functional [place] Measure 0=Not Assessed/NA 4=Minimal Assistance 1=Total Assistance 5=Supervision or Setup 2=Maximal Assistance 6=Modified [place] 3=Moderate Assistance 7=Complete IndependenceIRFPAI Quality Coding Scale 6 Independent with activity with or without an assistive device 5 Patient requires set up or clean up by helper. Patient completes activity by themselves 4 Supervision or touching assist (CGA). [place] provide cues , steadying assist 3 The helper provides less than half the effort to complete the activity 2 The helper provides more than half the effort to complete the activity 1 Dependent. The helper does all the effort to complete an activity 7 Patient refused to complete or attempt activity 9 The patient did not perform the activity before the current illness or injury 88 Not attempted due to Medical conditions or safety concerns Bathing (FIM): 4 Shower/Bathe Self (QC): 3 Upper Body (FIM): 5 Upper Body Dressing (QC): 5 Lower Body Dressing (FIM): 5 Lower Body Dressing (QC): 4 On/Off Footwear (QC): 4 Shower Transfer(FIM): 5 Other Treatment Pt completed bilateral UE exercises while seated to increase strength needed for ADLs and transfers. Pt performed shoulder flexion, forward press, biceps curls, and wrist flex/ext x15 reps with 1# dowel. Rest breaks between exercises. Pt sitting in chair with needs met after session. OT Short Term Goals Short Term Goals Time Frame: May 15, 2017 Bathing(FIM): 4 Upper Body Dressing(FIM): 5 Lower Body Dressing(FIM): 4 Toileting(FIM): 4 Toilet/Commode Transfer(FIM): 5 Shower Transfer(FIM): 4 Additional Short Term Goals: 1-Demonstrate ADL Tasks, 2-Verbalize Understanding , 3-ImproveStrength/Issac 1=Demonstrate adherence to instructed precautions during ADL tasks. 2=Patient will verbalize/demonstrate understanding of assistive devices/ modifications for ADL. 3=Patient will improve strength/tolerance for activity to enable patient to perform ADL's. OT Mcc Goals Mcc Goals Time Frame: May 29, 2017 Eating (FIM): 6 Eating (QC): 6 Groomin Oral Hygiene (QC): 6 Bathing(FIM): 5 Shower/Bathe Self (QC): 5 Upper Body Dressing(FIM): 6 Upper Body Dressing (QC): 6 Lower Body Dressing(FIM): 5 Lower Body Dressing (QC): 5 On/Off Footwear (QC): 5 Toileting(FIM): 6 Toileting Hygiene (QC): 6 Toilet/Commode Transfer(FIM): 6 Toilet/Commode Transfer (QC): 6 Shower Transfer(FIM): 5 Additional Goals: 1-Demonstrate ADL Tasks, 2-Verbalize Understanding, 3- ImproveStrength/Issac 1=Demonstrate adherence to instructed precautions during ADL tasks. 2=Patient will verbalize/demonstrate understanding of assistive devices/ modifications for ADL. 3=Patient will improve strength/tolerance for activity to enable patient to perform ADL's. OT Education/Plan Discharge Recommendations Plan/Recommendations: Continue POC Treatment Plan/Plan of Care Patient would benefit from OT for education, treatment and training to promote independence in ADL's, mobility, safety and/or upper extremity function for ADL' s. Plan of Care: ADL Retraining, Functional Mobility, Group Exercise/Act as Ind, UE Funct Exercise/Act Treatment Duration: May 29, 2017 Frequency: At least 5 of 7 days/Wk (IRF) Estimated Hrs Per Day: 1.5 hours per day Agreement: Yes Rehab Potential: Fair Time/GCodes Start Time: 08:00 Stop Time: 09:00 Total Time Billed (hr/min): 60 Billed Treatment Time 1 visit, ADLx3(45minutes), EX(15minutes) BRIGHT SANTIAGO OT May 15, 2017 10:06
--- NOTE | 2017-05-15 11:20 | Physical Therapy Daily Note ---
PT Daily Note-Current Subjective Pt. states she is happy that the XR of her left knee was negative and having pain in left hip and knee at 6/10 before Rx. After Rx and with some functional break throughs pt. reported 3/10 left hip/knee pain. Pain Numeric Pain Scale: 3 Location: Left Location Body Site: Hip Pain Description: Ache Mental Status Patient Orientation: Normal For Age Transfers Functional [place] Measure 0=Not Assessed/NA 4=Minimal Assistance 1=Total Assistance 5=Supervision or Setup 2=Maximal Assistance 6=Modified [place] 3=Moderate Assistance 7=Complete IndependenceIRFPAI Quality Coding Scale 6 Independent with activity with or without an assistive device 5 Patient requires set up or clean up by helper. Patient completes activity by themselves 4 Supervision or touching assist (CGA). [place] provide cues , steadying assist 3 The helper provides less than half the effort to complete the activity 2 The helper provides more than half the effort to complete the activity 1 Dependent. The helper does all the effort to complete an activity 7 Patient refused to complete or attempt activity 9 The patient did not perform the activity before the current illness or injury 88 Not attempted due to Medical conditions or safety concerns Transfers (B, C, W/C) (FIM): 5 Scootin Rollin Supine to/from Sit: 5 Sit to/from Stand: 6 significant progress for sup to sit and sit to sup, Weight Bearing Right Lower Extremity: Right Full Weight Bearing Left Lower Extremity: Left Weight Bearing/Tolerated Gait Training Does the Patient Walk?: Yes Gait (FIM): 5 Distance (FIM): 3=150 ft (150x2) Gait Level of Assist: 5 Gait Persons Needed: 1 Gait Assistive Device: FWW low, careful, no LOB Stair Training Stair Training: Handrails/: uses walker Stairs (FIM): 4 #of Steps: 1 Stairs: Pattern: Step to Level of Assist: 4 needed much explanation for step , states she was very fearful and now feels some relief and confidence in herself Exercises Supine Ex: Quad Set, Heel Slides, Short Arc Quads, Hip abd/add Supine Reps: 10 Seated Therapy Exercises: Ankle pumps, Sit to stand, Long arc quads, Hip abd/ add Seated Reps: 15 Assessment Current Status: Good Progress more confident , less pain ,less fear, more funct mobility PT Short Term Goals Short Term Goals Time Frame: May 15, 2017 Gait (FIM): 5 Gait Distance Comment: 200' Gait Level of Assist: 5 PT Group Home Goals Ear Nose And Throat Specialist Goals PT Ear Nose And Throat Specialist Goals Time Frame: May 29, 2017 Transfers (B,C,W/C) (FIM): 5 Sit to Lying (QC): 4 Lying-Sitting on Side/Bed(QC): 4 Sit to Stand (QC): 4 Rollin Roll Left to Right (QC): 4 Chair/[id number]-[id number] Xfer(QC): 4 Car Transfer (QC): 4 Gait (FIM): 5 Distance: 300' Walk 10 feet (QC): 4 Walk 10ft-Uneven Surface(QC): 4 Walk 50ft with 2 Turns (QC): 4 Walk 150 ft (QC): 4 Gait Level of Assist: 5 Gait Assistive Device: FWW Stairs (FIM): 2 # of Steps: 4 1 Step (curb) (QC): 4 Stairs Level Of Assist: 4 (CGA) PT Plan Treatment/Plan Treatment Plan: Continue Plan of Care Treatment Plan: Bed Mobility, Education, Functional Activity Issac, Functional Strength, Group Therapy, Gait, Safety, Therapeutic Exercise, Transfers Treatment Duration: May 29, 2017 Frequency: At least 5 of 7 days/Wk (IRF) Estimated Hrs Per Day: 1.5 hours per day Patient and/or Family Agrees t: Yes Safety Risks/Education Patient Education: Gait Training, Transfer Techniques, Steps, Correct Positioning, Disease Process, Safety Issues Teaching Recipient: Patient Teaching Methods: Demonstration, Discussion Response to Teaching: Verbalize Understanding, Return Demonstration, Reinforcement Needed Time/GCodes Time In: 1030 Time Out: 1115 Total Billed Treatment Time: 45 Total Billed Treatment 1,GT15m,FA30m G Codes Necessary: GABRIELLE Lake CORPORATE DEVELOPMENT MANAGER May 15, 2017 11:20
--- NOTE | 2017-05-15 12:52 | Progress Note (SOAP) ---
Subjective Date Seen by Provider: May 15, 2017 Time Seen by Provider: 12:50 Subjective/Events-last exam Fwup Left hip fracture, DM--insulin requiring, Chronic coumadin therapy, Hypertension. Left knee hurts worse than left hip--stiff. Objective Exam Vital Signs Date Time Temp Pulse Resp B/P (MAP) Pulse Ox O2 Delivery O2 Flow Rate FiO2 05/15/17 09:00 Room Air 05/15/17 07:04 97.6 68 21 150/73 (98) 98 Room Air 05/15/17 06:00 Room Air 05/14/17 21:00 Room Air 05/14/17 16:35 161/72 (101) 05/14/17 14:15 97.0 64 20 176/70 (105) 99 Room Air I & O 05/15/17 07:00 Intake Total 1750 ml Balance 1750 ml Capillary Refill : Less Than 3 Seconds General Appearance: No Apparent Distress Neck: Supple Respiratory: Lungs Clear Cardiovascular: Regular Rate, Rhythm Gastrointestinal: normal bowel sounds, non tender, soft Extremity: Non Tender, No Calf Tenderness, Pedal Edema (chronic) Neurologic/Psychiatric: Alert, Oriented x3 Results Lab Laboratory Tests 05/14/17 16:33: Glucometer 266H 05/14/17 20:35: Glucometer 330H 05/15/17 06:06: Glucometer 187H 05/15/17 06:27: Prothrombin Time 22.9H, INR Comment 2.0H 05/15/17 11:28: Glucometer 118H Assessment/Plan Assessment/Plan Assess & Plan/Chief Complaint 1. Left intertrochanteric hip fracture--S/P ORIF, pain control, PT/OT 2. 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 Hypertension--increase cozaar to 100mg daily and give extra 50mg now x1 4. Diabetes mellitus--insulin requiring--continue levemir and continue SSI 5. GERD--resumed protonix 6. Memory Loss--recent CT scan shows microvascular changes with history of lacunar infarcts and has a family history of alzheimers--started aricept 7. Acute on Chronic Anemia from recent surgery--S/P transfusion, H/H stable 8. Left knee pain/OA--using SUSAN wrap to help 9. Diarrhea--improved with addition of lactobacillus and immodium Clinical Quality Measures DVT/VTE Risk/Contraindication: Risk Factor Score Per Nursin RFS Level Per Nursing on Admit: 4+=Very High SHAKEEL BRUCE DO May 15, 2017 12:52
[2017-05-15] MEDS ORDERED: LOSARTAN 50 MG (COZAAR) TAB PO NR (12:58)
--- NOTE | 2017-05-15 14:24 | Occupational Ther Daily Note ---
OT Current Status-Daily Note Subjective Pt in bed, agrees to treatment. Mental Status/Objective Functional [place] Measure 0=Not Assessed/NA 4=Minimal Assistance 1=Total Assistance 5=Supervision or Setup 2=Maximal Assistance 6=Modified [place] 3=Moderate Assistance 7=Complete [place] ADL-Treatment Functional [place] Measure 0=Not Assessed/NA 4=Minimal Assistance 1=Total Assistance 5=Supervision or Setup 2=Maximal Assistance 6=Modified [place] 3=Moderate Assistance 7=Complete IndependenceIRFPAI Quality Coding Scale 6 Independent with activity with or without an assistive device 5 Patient requires set up or clean up by helper. Patient completes activity by themselves 4 Supervision or touching assist (CGA). [place] provide cues , steadying assist 3 The helper provides less than half the effort to complete the activity 2 The helper provides more than half the effort to complete the activity 1 Dependent. The helper does all the effort to complete an activity 7 Patient refused to complete or attempt activity 9 The patient did not perform the activity before the current illness or injury 88 Not attempted due to Medical conditions or safety concerns Other Treatment Pt supine to sit with assist for left LE. Pt declined to go to gym secondary to c/o left knee pain, agrees to activity in room. Pt transferred to chair with supervision using FWW. Pt completed fine motor task with nuts and bolts using bilateral UE with 1# weights in place to increase strength and coordination skills. Putty activity with bilateral hands to increase strength and manipulation skills. Pt able to remove small beads from putty without assistance. Pt completed bilateral UE exercises to increase strength for ADLs and transfers. Pt performed shoulder abduction, biceps curls, and triceps extension exercises x15 reps with moderate resistance (red) theraband. Brief rest break between exercises. Pt then states she had an accident and needs to go to restroom. Gait to restroom with FWW and transfer to [facility] [place] toilet with supervision. Assisted pt to doff Depends and pants. Pt sitting on toilet with nursing to assist after session. OT Short Term Goals Short Term Goals Time Frame: May 15, 2017 Bathing(FIM): 4 Upper Body Dressing(FIM): 5 Lower Body Dressing(FIM): 4 Toileting(FIM): 4 Toilet/Commode Transfer(FIM): 5 Shower Transfer(FIM): 4 Additional Short Term Goals: 1-Demonstrate ADL Tasks, 2-Verbalize Understanding , 3-ImproveStrength/Issac 1=Demonstrate adherence to instructed precautions during ADL tasks. 2=Patient will verbalize/demonstrate understanding of assistive devices/ modifications for ADL. 3=Patient will improve strength/tolerance for activity to enable patient to perform ADL's. OT Fci Goals Fci Goals Time Frame: May 29, 2017 Eating (FIM): 6 Eating (QC): 6 Groomin Oral Hygiene (QC): 6 Bathing(FIM): 5 Shower/Bathe Self (QC): 5 Upper Body Dressing(FIM): 6 Upper Body Dressing (QC): 6 Lower Body Dressing(FIM): 5 Lower Body Dressing (QC): 5 On/Off Footwear (QC): 5 Toileting(FIM): 6 Toileting Hygiene (QC): 6 Toilet/Commode Transfer(FIM): 6 Toilet/Commode Transfer (QC): 6 Shower Transfer(FIM): 5 Additional Goals: 1-Demonstrate ADL Tasks, 2-Verbalize Understanding, 3- ImproveStrength/Issac 1=Demonstrate adherence to instructed precautions during ADL tasks. 2=Patient will verbalize/demonstrate understanding of assistive devices/ modifications for ADL. 3=Patient will improve strength/tolerance for activity to enable patient to perform ADL's. OT Education/Plan Discharge Recommendations Plan/Recommendations: Continue POC Treatment Plan/Plan of Care Patient would benefit from OT for education, treatment and training to promote independence in ADL's, mobility, safety and/or upper extremity function for ADL' s. Plan of Care: ADL Retraining, Functional Mobility, Group Exercise/Act as Ind, UE Funct Exercise/Act Treatment Duration: May 29, 2017 Frequency: At least 5 of 7 days/Wk (IRF) Estimated Hrs Per Day: 1.5 hours per day Agreement: Yes Rehab Potential: Fair Time/GCodes Start Time: 13:00 Stop Time: 13:30 Total Time Billed (hr/min): 30 Billed Treatment Time 1 visit, EXx2(30minutes) BRIGHT SANTIAGO OT May 15, 2017 14:24
--- NOTE | 2017-05-15 15:12 | Physical Therapy Daily Note ---
PT Daily Note-Current Subjective Pt. agrees to rx. Wants to try sup to sit TRFs again and ther ex LEs Pain Numeric Pain Scale: 3 Location: Left Location Body Site: Knee Pain Description: Ache Mental Status Patient Orientation: Normal For Age Transfers Functional [place] Measure 0=Not Assessed/NA 4=Minimal Assistance 1=Total Assistance 5=Supervision or Setup 2=Maximal Assistance 6=Modified [place] 3=Moderate Assistance 7=Complete IndependenceIRFPAI Quality Coding Scale 6 Independent with activity with or without an assistive device 5 Patient requires set up or clean up by helper. Patient completes activity by themselves 4 Supervision or touching assist (CGA). [place] provide cues , steadying assist 3 The helper provides less than half the effort to complete the activity 2 The helper provides more than half the effort to complete the activity 1 Dependent. The helper does all the effort to complete an activity 7 Patient refused to complete or attempt activity 9 The patient did not perform the activity before the current illness or injury 88 Not attempted due to Medical conditions or safety concerns in out bed and chair and toilet all SBA to CGA. Weight Bearing Right Lower Extremity: Right Full Weight Bearing Left Lower Extremity: Left Weight Bearing/Tolerated Gait Training Gait Assistive Device: FWW 175x2 FWW slow,no LOB SBA Exercises Supine Ex: Ankle pumps, Quad Set, Rolling, Glut sets, Heel Slides, Short Arc Quads, Scooting, Straight leg raise (x5 min assist), Hip abd/add Supine Reps: 15 Assessment Current Status: Good Progress PT Short Term Goals Short Term Goals Time Frame: May 15, 2017 Gait (FIM): 5 Gait Distance Comment: 200' Gait Level of Assist: 5 PT Winch Stripper Goals Winch Stripper Goals PT Assisted Goals Time Frame: May 29, 2017 Transfers (B,C,W/C) (FIM): 5 Sit to Lying (QC): 4 Lying-Sitting on Side/Bed(QC): 4 Sit to Stand (QC): 4 Rollin Roll Left to Right (QC): 4 Chair/Cgk-mw-Xlcgm Xfer(QC): 4 Car Transfer (QC): 4 Gait (FIM): 5 Distance: 300' Walk 10 feet (QC): 4 Walk 10ft-Uneven Surface(QC): 4 Walk 50ft with 2 Turns (QC): 4 Walk 150 ft (QC): 4 Gait Level of Assist: 5 Gait Assistive Device: FWW Stairs (FIM): 2 # of Steps: 4 1 Step (curb) (QC): 4 Stairs Level Of Assist: 4 (CGA) PT Plan Treatment/Plan Treatment Plan: Continue Plan of Care Treatment Plan: Bed Mobility, Education, Functional Activity Issac, Functional Strength, Group Therapy, Gait, Safety, Therapeutic Exercise, Transfers Treatment Duration: May 29, 2017 Frequency: At least 5 of 7 days/Wk (IRF) Estimated Hrs Per Day: 1.5 hours per day Patient and/or Family Agrees t: Yes Safety Risks/Education Patient Education: Gait Training, Transfer Techniques, Correct Positioning, Safety Issues Teaching Recipient: Patient Teaching Methods: Demonstration, Discussion Response to Teaching: Verbalize Understanding, Return Demonstration, Reinforcement Needed Time/GCodes Time In: 1430 Time Out: 1515 Total Billed Treatment Time: 45 Total Billed Treatment 1,Ex15m,GT15m,FA15m G Codes Necessary: GABRIELLE Lake HYDRODYNAMICIST May 15, 2017 15:12
[2017-05-15 18:01] VITALS: BP 148/78
[2017-05-15] MEDS: warFARin 2 MG (COUMADIN) TAB PO SCH (18:05)
--- NOTE | 2017-05-15 19:50 | PM & R (SOAP) Progress Note ---
Subjective Time Seen by Provider: 19:45 Subjective/Events-last exam Patient was seen in her room this evening Patient SBA to CGA for gait with walker.Appreciate DR weiner note and orders Xray knee shows djd-Symtomatic relief ordered Review of Systems Musculoskeletal: leg pain Objective Exam Last Set of Vital Signs Vital Signs Date Time Temp Pulse Resp B/P (MAP) Pulse Ox O2 Delivery O2 Flow Rate FiO2 05/15/17 18:01 96.6 82 16 148/78 (101) 97 Room Air Capillary Refill : Less Than 3 Seconds I&O Intake and Output 05/15/17 00:00 Intake Total 1700 ml Balance 1700 ml Intake Oral 1700 ml # Voids 11 General: Alert, Oriented X3, Cooperative, No Acute Distress HEENT: Atraumatic, PERRLA, EOMI, Mucous Memb Moist/[place] Neck: Supple, No JVD Lungs: Clear to Auscultation Heart: Regular Rate Abdomen: Normal Bowel Sounds, Soft, No Tenderness Extremities: Other (trace edema) Neuro: Other (weakness at hip s/p repair) Results Lab Laboratory Tests 05/12/17 20:31: Glucometer 190H 05/13/17 04:55: Glucometer 83 05/13/17 05:00: Prothrombin Time 29.7H, INR Comment 2.8H 05/13/17 10:40: Glucometer 52*L 05/13/17 11:12: Glucometer 75 05/13/17 12:32: Glucometer 158H 05/13/17 16:38: Glucometer 230H 05/13/17 20:12: Glucometer 314H 05/14/17 05:17: Glucometer 218H 05/14/17 06:18: Prothrombin Time 25.3H, INR Comment 2.3H 05/14/17 11:44: Glucometer 154H 05/14/17 16:33: Glucometer 266H 05/14/17 20:35: Glucometer 330H 05/15/17 06:06: Glucometer 187H 05/15/17 06:27: Prothrombin Time 22.9H, INR Comment 2.0H 05/15/17 11:28: Glucometer 118H 05/15/17 16:05: Glucometer 112H Assessment/Plan Assessment Left intertrochanteric hip fracture s/p fal s/p ORIF Chronic coumadin therapy INR elevated coumadin on hold HTN on home meds controlled DM Meds adjusted by PCP GERD on protonix Memory loss with hx of lacunar strokes Acute on chronic anemia from recent surgery s/p transfusion DJD left knee Voltaran gel Diarrhea improved with meds Plan Continue PT/OT F/U with PCP and ortho prn Changed schedule for AM dose of Tylenol and tramadol-Pain management Next Team Conference tomorrow 05-16-17 JAREN ADDISON MD May 15, 2017 19:50
[2017-05-15] MEDS: ATORVASTATIN 10 MG (LIPITOR) TABLET PO SCH (20:46)
[2017-05-15] MEDS: DONEPEZIL 5 MG (ARICEPT) TAB PO SCH (20:46)
[2017-05-15] MEDS: inSUlin DETERMIR 1 UNIT/0.01 ML (LEVEMIR) CHARGE PER UNIT SQ SCH (20:48)
[2017-05-16 06:00] VITALS: BP 171/83
[2017-05-16] MEDS: PANTOPRAZOLE 40 MG (PROTONIX) TAB PO SCH (06:23)
[2017-05-16] MEDS: CALCIUM CARB + VIT D 600 MG (CALCARB + D) TAB PO SCH ×2 (06:23→17:05)
[2017-05-16] MEDS: LACTOBACILLUS Acidoph/Bulgar (LACTINEX/FLORANEX) TAB PO SCH ×3 (06:23→17:05)
[2017-05-16] MEDS: inSUlin ASPART (NovoLOG) 1 UNIT/0.01 ML (CHARGE PER UNIT) SC SCH ×3 (07:03→17:06)
[2017-05-16 07:55] LABS: INR 1.8 (0.8-1.4); PROTHROMBIN TIME PATIENT 21.1 SEC (12.2-14.7)
[2017-05-16] MEDS: CARVEDILOL 12.5 MG (COREG) TABLET PO SCH ×2 (08:05→21:16)
[2017-05-16] MEDS: LOSARTAN 50 MG (COZAAR) TAB PO SCH (08:05)
[2017-05-16] MEDS: ACETAMINOPHEN 500 MG TAB (TYLENOL) PO PRN ×2 (08:06→21:20)
[2017-05-16] MEDS: DICLOFENAC 1% GEL 100 GM (VOLTAREN) TUBE TOP SCH ×4 (08:07→21:20)
[2017-05-16] MEDS: MICONAZOLE 2% POWDER (DESENEX AF) 90 GM TOP SCH ×2 (08:07→21:16)
--- NOTE | 2017-05-16 09:24 | Physical Therapy Daily Note ---
PT Daily Note-Current Subjective Pt. agrees to rx. States she feels she is making progress but is still having pain in her left knee at 8/10, this was better off and on during the Rx. Pain Numeric Pain Scale: 8 Location: Left Location Body Site: Knee Pain Description: Ache Mental Status Patient Orientation: Normal For Age Transfers Functional [place] Measure 0=Not Assessed/NA 4=Minimal Assistance 1=Total Assistance 5=Supervision or Setup 2=Maximal Assistance 6=Modified [place] 3=Moderate Assistance 7=Complete IndependenceIRFPAI Quality Coding Scale 6 Independent with activity with or without an assistive device 5 Patient requires set up or clean up by helper. Patient completes activity by themselves 4 Supervision or touching assist (CGA). [place] provide cues , steadying assist 3 The helper provides less than half the effort to complete the activity 2 The helper provides more than half the effort to complete the activity 1 Dependent. The helper does all the effort to complete an activity 7 Patient refused to complete or attempt activity 9 The patient did not perform the activity before the current illness or injury 88 Not attempted due to Medical conditions or safety concerns Transfers (B, C, W/C) (FIM): 6 Scootin Rollin Supine to/from Sit: 6 Sit to/from Stand: 6 Weight Bearing Right Lower Extremity: Right Full Weight Bearing Left Lower Extremity: Left Weight Bearing/Tolerated Gait Training Does the Patient Walk?: Yes Gait (FIM): 5 Distance (FIM): 3=150 ft (170x2) Gait Level of Assist: 5 Gait Persons Needed: 1 Gait Assistive Device: FWW slow, no LOB Stair Training Stair Training: Handrails/: uses walker Stairs (FIM): 1 #of Steps: 1 Stairs: Pattern: Step to Level of Assist: 4 pt. state she is gaining confidence and will feel like trying the steps soon Exercises Supine Ex: Ankle pumps, Quad Set, Rolling, Glut sets, Heel Slides, Short Arc Quads, Scooting, Straight leg raise, Hip abd/add Supine Reps: 15 Treatments car TRF SBA and instruction Assessment Current Status: Good Progress PT Short Term Goals Short Term Goals Time Frame: May 15, 2017 Gait (FIM): 5 Gait Distance Comment: 200' Gait Level of Assist: 5 PT Director Of Business Applications Goals Director Of Business Applications Goals PT Director Of Business Applications Goals Time Frame: May 29, 2017 Transfers (B,C,W/C) (FIM): 5 Sit to Lying (QC): 4 Lying-Sitting on Side/Bed(QC): 4 Sit to Stand (QC): 4 Rollin Roll Left to Right (QC): 4 Chair/Rcg-jt-Iiuqu Xfer(QC): 4 Car Transfer (QC): 4 Gait (FIM): 5 Distance: 300' Walk 10 feet (QC): 4 Walk 10ft-Uneven Surface(QC): 4 Walk 50ft with 2 Turns (QC): 4 Walk 150 ft (QC): 4 Gait Level of Assist: 5 Gait Assistive Device: FWW Stairs (FIM): 2 # of Steps: 4 1 Step (curb) (QC): 4 Stairs Level Of Assist: 4 (CGA) PT Plan Treatment/Plan Treatment Plan: Continue Plan of Care Treatment Plan: Bed Mobility, Education, Functional Activity Issac, Functional Strength, Group Therapy, Gait, Safety, Therapeutic Exercise, Transfers Treatment Duration: May 29, 2017 Frequency: At least 5 of 7 days/Wk (IRF) Estimated Hrs Per Day: 1.5 hours per day Patient and/or Family Agrees t: Yes Safety Risks/Education Patient Education: Gait Training, Transfer Techniques, Steps, Correct Positioning, Disease Process, Safety Issues Teaching Recipient: Patient Teaching Methods: Demonstration, Discussion Response to Teaching: Verbalize Understanding, Return Demonstration, Reinforcement Needed Time/GCodes Time In: 845 Time Out: 930 Total Billed Treatment Time: 45 Total Billed Treatment 1,FA15m,EX15m,GT15m G Codes Necessary: GABRIELLE Lake PTA May 16, 2017 09:24
--- NOTE | 2017-05-16 10:41 | Occupational Ther Daily Note ---
OT Current Status-Daily Note Subjective Pt sitting in chair, agrees to treatment. Pt reports 7/10 pain in left knee. Mental Status/Objective Functional [place] Measure 0=Not Assessed/NA 4=Minimal Assistance 1=Total Assistance 5=Supervision or Setup 2=Maximal Assistance 6=Modified [place] 3=Moderate Assistance 7=Complete [place] ADL-Treatment Pt declined shower, but would like to clean up. Pt completed partial sponge bath while seated in chair with supervision. Pt washed upper body with set up, but did not remove shirt to complete. Used long handled sponge to wash lower legs and feet. Don shoes with set up. Functional [place] Measure 0=Not Assessed/NA 4=Minimal Assistance 1=Total Assistance 5=Supervision or Setup 2=Maximal Assistance 6=Modified [place] 3=Moderate Assistance 7=Complete IndependenceIRFPAI Quality Coding Scale 6 Independent with activity with or without an assistive device 5 Patient requires set up or clean up by helper. Patient completes activity by themselves 4 Supervision or touching assist (CGA). [place] provide cues , steadying assist 3 The helper provides less than half the effort to complete the activity 2 The helper provides more than half the effort to complete the activity 1 Dependent. The helper does all the effort to complete an activity 7 Patient refused to complete or attempt activity 9 The patient did not perform the activity before the current illness or injury 88 Not attempted due to Medical conditions or safety concerns Other Treatment Pt sit to stand with supervision. Pt states she doesn't think she can walk to the gym secondary to left knee pain. Pt to gym via w/c. Arm bike x10 minutes to increase overall strength and activity tolerance needed for functional tasks. Pt completed activity with minimal resistance and slow pace. One brief rest break taken during task. Graded clothespin task with bilateral hands to increase operating room orderly/pinch strength. Pt completed tabletop peg activity with bilateral hands with 1# weights in place to increase strength and coordination/ manipulation skills. Pt returned to room, transferred to EOB with supervision. Sit to supine with assist for LE. Pt resting in bed with needs met after session. OT Short Term Goals Short Term Goals Time Frame: May 15, 2017 Bathing(FIM): 4 Upper Body Dressing(FIM): 5 Lower Body Dressing(FIM): 4 Toileting(FIM): 4 Toilet/Commode Transfer(FIM): 5 Shower Transfer(FIM): 4 Additional Short Term Goals: 1-Demonstrate ADL Tasks, 2-Verbalize Understanding , 3-ImproveStrength/[place] 1=Demonstrate adherence to instructed precautions during ADL tasks. 2=Patient will verbalize/demonstrate understanding of assistive devices/ modifications for ADL. 3=Patient will improve strength/tolerance for activity to enable patient to perform ADL's. OT Custodial Goals Cutter V Groove Goals Time Frame: May 29, 2017 Eating (FIM): 6 Eating (QC): 6 Groomin Oral Hygiene (QC): 6 Bathing(FIM): 5 Shower/Bathe Self (QC): 5 Upper Body Dressing(FIM): 6 Upper Body Dressing (QC): 6 Lower Body Dressing(FIM): 5 Lower Body Dressing (QC): 5 On/Off Footwear (QC): 5 Toileting(FIM): 6 Toileting Hygiene (QC): 6 Toilet/Commode Transfer(FIM): 6 Toilet/Commode Transfer (QC): 6 Shower Transfer(FIM): 5 Additional Goals: 1-Demonstrate ADL Tasks, 2-Verbalize Understanding, 3- ImproveStrength/Issac 1=Demonstrate adherence to instructed precautions during ADL tasks. 2=Patient will verbalize/demonstrate understanding of assistive devices/ modifications for ADL. 3=Patient will improve strength/tolerance for activity to enable patient to perform ADL's. OT Education/Plan Discharge Recommendations Plan/Recommendations: Continue POC Treatment Plan/Plan of Care Patient would benefit from OT for education, treatment and training to promote independence in ADL's, mobility, safety and/or upper extremity function for ADL' s. Plan of Care: ADL Retraining, Functional Mobility, Group Exercise/Act as Ind, UE Funct Exercise/Act Treatment Duration: May 29, 2017 Frequency: At least 5 of 7 days/Wk (IRF) Estimated Hrs Per Day: 1.5 hours per day Agreement: Yes Rehab Potential: Fair Time/GCodes Start Time: 09:30 Stop Time: 10:30 Total Time Billed (hr/min): 60 Billed Treatment Time 1 visit, ADLx2(25minutes), EXx2(35minutes) BRIGHT SANTIAGO OT May 16, 2017 10:41
--- NOTE | 2017-05-16 15:06 | Therapy Group Daily Note ---
Therapy Daily Group Note Patient Education Topic Other List Below Exercises LE Seated Exercise, UE Exercise Other/Notes Pt ambulated with CGA using FWW to OT/PT group. Group consisted of introductions (name, place living, "Remember when..."), socialization, pt led UE /LE seated exercises, education on work simplification and energy conservation. Pt introduced self appropriately and actively listened to peers introduce themselves. Pt verbalized understanding of educational topics and adaptive equipment that was introduced. Pt contributed to conversations throughout therapy and was attentive to peers opinions. Pt was able to lead peers in exercises. After group, pt lying in bed. Call light/phone in reach. All needs met in room. Start Time: 13:00 Stop Time: 14:20 Total Billed Treatment Time: 80 Total Billed Treatment 1-GRP LAYA RICE May 16, 2017 15:06
--- NOTE | 2017-05-16 15:11 | PM & R (SOAP) Progress Note ---
Subjective Time Seen by Provider: 08:30 Subjective/Events-last exam Patient was seen in her room this AM Patient Modified Independent for transfers Objective Exam Last Set of Vital Signs Vital Signs Date Time Temp Pulse Resp B/P (MAP) Pulse Ox O2 Delivery O2 Flow Rate FiO2 05/16/17 09:00 Room Air 05/16/17 06:00 96.9 72 19 171/83 (112) 97 Capillary Refill : Less Than 3 Seconds I&O Intake and Output 05/16/17 00:00 Intake Total 1960 ml Balance 1960 ml Intake Oral 1960 ml # Voids 9 # Bowel Movements 4 General: Alert, Oriented X3, Cooperative, No Acute Distress HEENT: Atraumatic, PERRLA, EOMI, Mucous Memb Moist/[place] Neck: Supple, No JVD Lungs: Clear to Auscultation Heart: Regular Rate Abdomen: Normal Bowel Sounds, Soft, No Tenderness Extremities: Other (trace edema) Neuro: Other (weakness at hip s/p repair) Results Lab Laboratory Tests 05/13/17 16:38: Glucometer 230H 05/13/17 20:12: Glucometer 314H 05/14/17 05:17: Glucometer 218H 05/14/17 06:18: Prothrombin Time 25.3H, INR Comment 2.3H 05/14/17 11:44: Glucometer 154H 05/14/17 16:33: Glucometer 266H 05/14/17 20:35: Glucometer 330H 05/15/17 06:06: Glucometer 187H 05/15/17 06:27: Prothrombin Time 22.9H, INR Comment 2.0H 05/15/17 11:28: Glucometer 118H 05/15/17 16:05: Glucometer 112H 05/15/17 20:46: Glucometer 224H 05/16/17 06:10: Glucometer 96 05/16/17 07:27: Prothrombin Time 21.1H, INR Comment 1.8H 05/16/17 10:05: Glucometer 79 Assessment/Plan Assessment Left intertrochanteric hip fracture s/p fal s/p ORIF Chronic coumadin therapy INR elevated coumadin on hold HTN on home meds controlled DM Meds adjusted by PCP GERD on protonix Memory loss with hx of lacunar strokes Acute on chronic anemia from recent surgery s/p transfusion DJD left knee Voltaran gel Diarrhea improved with meds Plan Continue PT/OT F/U with PCP and ortho prn Changed schedule for AM dose of Tylenol and tramadol-Pain management Team Conference held earlier today-see report for full functional update and POC and JAREN ROBERTS MD May 16, 2017 15:11
[2017-05-16] MEDS: warFARin 2 MG (COUMADIN) TAB PO SCH (17:05)
[2017-05-16 18:00] VITALS: BP 185/82
[2017-05-16] MEDS: inSUlin DETERMIR 1 UNIT/0.01 ML (LEVEMIR) CHARGE PER UNIT SQ SCH (21:16)
[2017-05-16] MEDS: DONEPEZIL 5 MG (ARICEPT) TAB PO SCH (21:16)
[2017-05-16] MEDS: ATORVASTATIN 10 MG (LIPITOR) TABLET PO SCH (21:16)
[2017-05-16] MEDS: LOPERAMIDE 2 MG (IMODIUM) CAP PO PRN (22:20)
[2017-05-17 05:20] VITALS: BP 165/70
[2017-05-17] MEDS: PANTOPRAZOLE 40 MG (PROTONIX) TAB PO SCH (06:06)
[2017-05-17] MEDS: LACTOBACILLUS Acidoph/Bulgar (LACTINEX/FLORANEX) TAB PO SCH ×3 (06:06→16:31)
[2017-05-17] MEDS: CALCIUM CARB + VIT D 600 MG (CALCARB + D) TAB PO SCH ×2 (06:06→16:31)
[2017-05-17] MEDS: inSUlin ASPART (NovoLOG) 1 UNIT/0.01 ML (CHARGE PER UNIT) SC SCH ×3 (06:40→16:44)
[2017-05-17 06:57] LABS: PROTHROMBIN TIME PATIENT 22.2 SEC (12.2-14.7)
[2017-05-17] MEDS: CARVEDILOL 12.5 MG (COREG) TABLET PO SCH ×2 (08:25→20:05)
[2017-05-17] MEDS: ACETAMINOPHEN 500 MG TAB (TYLENOL) PO PRN ×2 (08:25→16:31)
[2017-05-17] MEDS: LOSARTAN 50 MG (COZAAR) TAB PO SCH (08:25)
[2017-05-17] MEDS: DICLOFENAC 1% GEL 100 GM (VOLTAREN) TUBE TOP SCH ×4 (08:29→20:05)
[2017-05-17] MEDS: MICONAZOLE 2% POWDER (DESENEX AF) 90 GM TOP SCH ×2 (08:29→20:05)
--- NOTE | 2017-05-17 10:01 | Physical Therapy Daily Note ---
PT Daily Note-Current Subjective Pt. states "wow you all wear me out" c/o pain in left hip at 08/05. Ultimately states she is very happy with her progress Pain Numeric Pain Scale: 6 Location: Left Location Body Site: Hip Pain Description: Ache Mental Status Patient Orientation: Normal For Age Transfers Functional [place] Measure 0=Not Assessed/NA 4=Minimal Assistance 1=Total Assistance 5=Supervision or Setup 2=Maximal Assistance 6=Modified [place] 3=Moderate Assistance 7=Complete IndependenceIRFPAI Quality Coding Scale 6 Independent with activity with or without an assistive device 5 Patient requires set up or clean up by helper. Patient completes activity by themselves 4 Supervision or touching assist (CGA). [place] provide cues , steadying assist 3 The helper provides less than half the effort to complete the activity 2 The helper provides more than half the effort to complete the activity 1 Dependent. The helper does all the effort to complete an activity 7 Patient refused to complete or attempt activity 9 The patient did not perform the activity before the current illness or injury 88 Not attempted due to Medical conditions or safety concerns Transfers (B, C, W/C) (FIM): 6 Scootin Rollin Supine to/from Sit: 6 Sit to/from Stand: 6 Bed to/from Chair: 6 Weight Bearing Right Lower Extremity: Right Full Weight Bearing Left Lower Extremity: Left Weight Bearing/Tolerated Gait Training Does the Patient Walk?: Yes Gait (FIM): 5 Distance (FIM): 3=150 ft (175x2) Gait Level of Assist: 5 Gait Persons Needed: 1 Gait Assistive Device: FWW heavy wt bearing on FWW, slow careful movements Stair Training Stair Training: Handrails/: 2 handrails, uses walker Stairs (FIM): 1 #of Steps: 1 Stairs: Pattern: Step to Level of Assist: 4 pt. ascended one step and then had to turn on stairs to descend, this BULL WHEEL WORKER feeling that actually pt is overcome with anxiety and then cant complete task Exercises Supine Ex: Ankle pumps, Quad Set, Rolling, Glut sets, Heel Slides, Short Arc Quads, Scooting, Straight leg raise, Hip abd/add Supine Reps: 12 Seated Therapy Exercises: Ankle pumps, Sit to stand, Long arc quads, Hip abd/ add Seated Reps: 10 NuStep Minutes: 10 NuStep Workload: 4 Assessment Current Status: Good Progress PT Short Term Goals Short Term Goals Time Frame: May 15, 2017 Gait (FIM): 5 Gait Distance Comment: 200' Gait Level of Assist: 5 PT Jail Goals Fur Cleaner Goals PT Fur Cleaner Goals Time Frame: May 29, 2017 Transfers (B,C,W/C) (FIM): 5 Sit to Lying (QC): 4 Lying-Sitting on Side/Bed(QC): 4 Sit to Stand (QC): 4 Rollin Roll Left to Right (QC): 4 Chair/Tkd-ir-Axutj Xfer(QC): 4 Car Transfer (QC): 4 Gait (FIM): 5 Distance: 300' Walk 10 feet (QC): 4 Walk 10ft-Uneven Surface(QC): 4 Walk 50ft with 2 Turns (QC): 4 Walk 150 ft (QC): 4 Gait Level of Assist: 5 Gait Assistive Device: FWW Stairs (FIM): 2 # of Steps: 4 1 Step (curb) (QC): 4 Stairs Level Of Assist: 4 (CGA) PT Plan Treatment/Plan Treatment Plan: Continue Plan of Care Treatment Plan: Bed Mobility, Education, Functional Activity Issac, Functional Strength, Group Therapy, Gait, Safety, Therapeutic Exercise, Transfers Treatment Duration: May 29, 2017 Frequency: At least 5 of 7 days/Wk (IRF) Estimated Hrs Per Day: 1.5 hours per day Patient and/or Family Agrees t: Yes Safety Risks/Education Patient Education: Gait Training, Transfer Techniques, Steps Teaching Recipient: Patient Teaching Methods: Demonstration, Discussion Response to Teaching: Verbalize Understanding, Return Demonstration, Reinforcement Needed Time/GCodes Time In: 900 Time Out: 1000 Total Billed Treatment Time: 60 Total Billed Treatment 1,FA25m,GT15n,EX20m G Codes Necessary: GABRIELLE Lake BULL WHEEL WORKER May 17, 2017 10:00
--- NOTE | 2017-05-17 11:41 | Occupational Ther Daily Note ---
OT Current Status-Daily Note Subjective Pt alert, sitting in recliner. Pt agreed to therapy. Pt did c/o pain in L knee , did not rate. Mental Status/Objective Patient Orientation: Person, Place, Time, Situation Functional [place] Measure 0=Not Assessed/NA 4=Minimal Assistance 1=Total Assistance 5=Supervision or Setup 2=Maximal Assistance 6=Modified [place] 3=Moderate Assistance 7=Complete [place] ADL-Treatment Functional [place] Measure 0=Not Assessed/NA 4=Minimal Assistance 1=Total Assistance 5=Supervision or Setup 2=Maximal Assistance 6=Modified [place] 3=Moderate Assistance 7=Complete IndependenceIRFPAI Quality Coding Scale 6 Independent with activity with or without an assistive device 5 Patient requires set up or clean up by helper. Patient completes activity by themselves 4 Supervision or touching assist (CGA). [place] provide cues , steadying assist 3 The helper provides less than half the effort to complete the activity 2 The helper provides more than half the effort to complete the activity 1 Dependent. The helper does all the effort to complete an activity 7 Patient refused to complete or attempt activity 9 The patient did not perform the activity before the current illness or injury 88 Not attempted due to Medical conditions or safety concerns Grooming (FIM): 6 (Sitting at sink, pt is able to complete grooming by self.) Oral Hygiene (QC): 6 Bathing (FIM): 5 (Using shower bench, grabbar and hand held shower pt is able to complete by self.) Bathing Location: L Arm, R Arm, L Upper Leg, R Upper Leg, L Lower Leg ( including foot), R Lower Leg (including foot), Chest, Abdomen, Buttocks, Perineal Area Shower/Bathe Self (QC): 5 Upper Body (FIM): 5 (After set up, pt is able to complete by self.) Upper Body Dressing (QC): 5 Lower Body Dressing (FIM): 5 (After set up, pt is able to complete using AE. Supervision to hike pants over hips.) Lower Body Dressing (QC): 4 On/Off Footwear (QC): 6 (Using AE, pt is able to complete donning/doffing footwear by self.) Shower Transfer(FIM): 5 (Supervision using FWW, grabbars and shower bench.) After therapy, pt left in care of PT. All needs met. OT Short Term Goals Short Term Goals Time Frame: May 15, 2017 Bathing(FIM): 4 Upper Body Dressing(FIM): 5 Lower Body Dressing(FIM): 4 Toileting(FIM): 4 Toilet/Commode Transfer(FIM): 5 Shower Transfer(FIM): 4 Additional Short Term Goals: 1-Demonstrate ADL Tasks, 2-Verbalize Understanding , 3-ImproveStrength/Issac 1=Demonstrate adherence to instructed precautions during ADL tasks. 2=Patient will verbalize/demonstrate understanding of assistive devices/ modifications for ADL. 3=Patient will improve strength/tolerance for activity to enable patient to perform ADL's. OT Cloth Bleaching Range Operator Chief Goals Cloth Bleaching Range Operator Chief Goals Time Frame: May 29, 2017 Eating (FIM): 6 Eating (QC): 6 Groomin Oral Hygiene (QC): 6 Bathing(FIM): 5 Shower/Bathe Self (QC): 5 Upper Body Dressing(FIM): 6 Upper Body Dressing (QC): 6 Lower Body Dressing(FIM): 5 Lower Body Dressing (QC): 5 On/Off Footwear (QC): 5 Toileting(FIM): 6 Toileting Hygiene (QC): 6 Toilet/Commode Transfer(FIM): 6 Toilet/Commode Transfer (QC): 6 Shower Transfer(FIM): 5 Additional Goals: 1-Demonstrate ADL Tasks, 2-Verbalize Understanding, 3- ImproveStrength/Issac 1=Demonstrate adherence to instructed precautions during ADL tasks. 2=Patient will verbalize/demonstrate understanding of assistive devices/ modifications for ADL. 3=Patient will improve strength/tolerance for activity to enable patient to perform ADL's. OT Education/Plan Discharge Recommendations Plan/Recommendations: Continue POC Treatment Plan/Plan of Care Patient would benefit from OT for education, treatment and training to promote independence in ADL's, mobility, safety and/or upper extremity function for ADL' s. Plan of Care: ADL Retraining, Functional Mobility, Group Exercise/Act as Ind, UE Funct Exercise/Act Treatment Duration: May 29, 2017 Frequency: At least 5 of 7 days/Wk (IRF) Estimated Hrs Per Day: 1.5 hours per day Agreement: Yes Rehab Potential: Fair Time/GCodes Start Time: 08:30 Stop Time: 09:00 Total Time Billed (hr/min): 30 Billed Treatment Time 1 visit-ADL 2 (30 min) LAYA RICE May 17, 2017 11:41
--- NOTE | 2017-05-17 11:41 | Occupational Ther Daily Note ---
OT Current Status-Daily Note Subjective Pt alert, sitting in recliner. Pt agreed to therapy. Pt c/o pain in knee, did not rate. Pt requested to stay in room for therapy today due to knee pain. Mental Status/Objective Patient Orientation: Person, Place, Time, Situation Functional [place] Measure 0=Not Assessed/NA 4=Minimal Assistance 1=Total Assistance 5=Supervision or Setup 2=Maximal Assistance 6=Modified [place] 3=Moderate Assistance 7=Complete [place] ADL-Treatment Functional [place] Measure 0=Not Assessed/NA 4=Minimal Assistance 1=Total Assistance 5=Supervision or Setup 2=Maximal Assistance 6=Modified [place] 3=Moderate Assistance 7=Complete IndependenceIRFPAI Quality Coding Scale 6 Independent with activity with or without an assistive device 5 Patient requires set up or clean up by helper. Patient completes activity by themselves 4 Supervision or touching assist (CGA). [place] provide cues , steadying assist 3 The helper provides less than half the effort to complete the activity 2 The helper provides more than half the effort to complete the activity 1 Dependent. The helper does all the effort to complete an activity 7 Patient refused to complete or attempt activity 9 The patient did not perform the activity before the current illness or injury 88 Not attempted due to Medical conditions or safety concerns Toileting (FIM): 6 (Pt able to complete with FWW and grabbars.) Toileting Hygiene (QC): 6 Toilet/Commode Transfer (FIM): 6 (Pt able to complete with grabbars and FWW.) Toilet Transfer (QC): 6 Other Treatment Pt completed 4 UE dowel wilian exercises with 1# wt attached, 3 sets of 10 reps. Pt then completed fine motor tasks to increase strength of pinch and grasp for daily functional tasks. After therapy, pt sitting in recliner with call light/ phone in reach. All needs met in room. OT Short Term Goals Short Term Goals Time Frame: May 15, 2017 Bathing(FIM): 4 Upper Body Dressing(FIM): 5 Lower Body Dressing(FIM): 4 Toileting(FIM): 4 Toilet/Commode Transfer(FIM): 5 Shower Transfer(FIM): 4 Additional Short Term Goals: 1-Demonstrate ADL Tasks, 2-Verbalize Understanding , 3-ImproveStrength/Issac 1=Demonstrate adherence to instructed precautions during ADL tasks. 2=Patient will verbalize/demonstrate understanding of assistive devices/ modifications for ADL. 3=Patient will improve strength/tolerance for activity to enable patient to perform ADL's. OT Rail Express Clerk Goals Senior Care Goals Time Frame: May 29, 2017 Eating (FIM): 6 Eating (QC): 6 Groomin Oral Hygiene (QC): 6 Bathing(FIM): 5 Shower/Bathe Self (QC): 5 Upper Body Dressing(FIM): 6 Upper Body Dressing (QC): 6 Lower Body Dressing(FIM): 5 Lower Body Dressing (QC): 5 On/Off Footwear (QC): 5 Toileting(FIM): 6 Toileting Hygiene (QC): 6 Toilet/Commode Transfer(FIM): 6 Toilet/Commode Transfer (QC): 6 Shower Transfer(FIM): 5 Additional Goals: 1-Demonstrate ADL Tasks, 2-Verbalize Understanding, 3- ImproveStrength/Issac 1=Demonstrate adherence to instructed precautions during ADL tasks. 2=Patient will verbalize/demonstrate understanding of assistive devices/ modifications for ADL. 3=Patient will improve strength/tolerance for activity to enable patient to perform ADL's. OT Education/Plan Discharge Recommendations Plan/Recommendations: Continue POC Treatment Plan/Plan of Care Patient would benefit from OT for education, treatment and training to promote independence in ADL's, mobility, safety and/or upper extremity function for ADL' s. Plan of Care: ADL Retraining, Functional Mobility, Group Exercise/Act as Ind, UE Funct Exercise/Act Treatment Duration: May 29, 2017 Frequency: At least 5 of 7 days/Wk (IRF) Estimated Hrs Per Day: 1.5 hours per day Agreement: Yes Rehab Potential: Fair Time/GCodes Start Time: 11:00 Stop Time: 12:00 Total Time Billed (hr/min): 60 Billed Treatment Time 1 visit-EX 3 (40 min) FA 1 (20 min) LAYA RICE May 17, 2017 11:41
--- NOTE | 2017-05-17 12:39 | Progress Note (SOAP) ---
Subjective Date Seen by Provider: May 17, 2017 Time Seen by Provider: 12:37 Subjective/Events-last exam Fwup Left hip fracture, DM--insulin requiring, Chronic coumadin therapy, Hypertension. Plan is for DC on 05/21/17. Objective Exam Vital Signs Date Time Temp Pulse Resp B/P (MAP) Pulse Ox O2 Delivery O2 Flow Rate FiO2 05/17/17 09:11 Room Air 05/17/17 05:20 97.2 70 20 165/70 (101) 97 Room Air 05/16/17 20:10 Room Air 05/16/17 18:38 97.2 05/16/17 18:00 97.2 76 18 185/82 (116) 99 Room Air I & O 05/17/17 07:00 Intake Total 2180 ml Balance 2180 ml Capillary Refill : Less Than 3 Seconds General Appearance: No Apparent Distress Neck: Supple Respiratory: Lungs Clear Cardiovascular: Regular Rate, Rhythm, Systolic Murmur Gastrointestinal: normal bowel sounds, non tender, soft Extremity: Non Tender, No Calf Tenderness, Pedal Edema (chronic) Neurologic/Psychiatric: Alert, Oriented x3 Results Lab Laboratory Tests 05/16/17 16:58: Glucometer 188H 05/16/17 20:57: Glucometer 173H 05/17/17 05:08: Glucometer 50*L 05/17/17 05:28: Glucometer 51*L 05/17/17 06:05: Glucometer 126H 05/17/17 06:26: Prothrombin Time 22.2H, INR Comment 2.0H 05/17/17 11:13: Glucometer 108 Assessment/Plan Assessment/Plan Assess & Plan/Chief Complaint 1. Left intertrochanteric hip fracture--S/P ORIF, pain control, PT/OT 2. 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 Hypertension--continue increased cozaar dose 4. Diabetes mellitus--insulin requiring--continue levemir and continue SSI 5. GERD--resumed protonix 6. Memory Loss--recent CT scan shows microvascular changes with history of lacunar infarcts and has a family history of alzheimers--started aricept 7. Acute on Chronic Anemia from recent surgery--S/P transfusion, H/H stable 8. Left knee pain/OA--using SUSAN wrap to help 9. Diarrhea--improved with addition of lactobacillus and immodium Clinical Quality Measures DVT/VTE Risk/Contraindication: Risk Factor Score Per Nursin RFS Level Per Nursing on Admit: 4+=Very High SHAKEEL BRUCE DO May 17, 2017 12:39
--- NOTE | 2017-05-17 13:42 | Physical Therapy Daily Note ---
PT Daily Note-Current Subjective Pt. c/o pain in left knee at 9/10. wants to go to bed Pain Numeric Pain Scale: 9 Location: Left Location Body Site: Knee Pain Description: Pressure Mental Status Patient Orientation: Normal For Age Transfers Functional [place] Measure 0=Not Assessed/NA 4=Minimal Assistance 1=Total Assistance 5=Supervision or Setup 2=Maximal Assistance 6=Modified [place] 3=Moderate Assistance 7=Complete IndependenceIRFPAI Quality Coding Scale 6 Independent with activity with or without an assistive device 5 Patient requires set up or clean up by helper. Patient completes activity by themselves 4 Supervision or touching assist (CGA). [place] provide cues , steadying assist 3 The helper provides less than half the effort to complete the activity 2 The helper provides more than half the effort to complete the activity 1 Dependent. The helper does all the effort to complete an activity 7 Patient refused to complete or attempt activity 9 The patient did not perform the activity before the current illness or injury 88 Not attempted due to Medical conditions or safety concerns in to bed min assist left lower extremity Weight Bearing Right Lower Extremity: Right Full Weight Bearing Left Lower Extremity: Left Weight Bearing/Tolerated Gait Training Gait Assistive Device: FWW 0 ft to bed SBA Exercises Supine Ex: Ankle pumps, Quad Set, Rolling, Glut sets, Heel Slides, Short Arc Quads, Scooting, Hip abd/add Supine Reps: 15 Seated Therapy Exercises: Ankle pumps, Sit to stand, Long arc quads Seated Reps: 7 Treatments ice packs to hip and knee left Assessment Current Status: Good Progress pain limits function this pm PT Short Term Goals Short Term Goals Time Frame: May 15, 2017 Gait (FIM): 5 Gait Distance Comment: 200' Gait Level of Assist: 5 PT Outdoor Education Teacher Goals Shelter Goals PT Outdoor Education Teacher Goals Time Frame: May 29, 2017 Transfers (B,C,W/C) (FIM): 5 Sit to Lying (QC): 4 Lying-Sitting on Side/Bed(QC): 4 Sit to Stand (QC): 4 Rollin Roll Left to Right (QC): 4 Chair/Yrt-fh-Boetv Xfer(QC): 4 Car Transfer (QC): 4 Gait (FIM): 5 Distance: 300' Walk 10 feet (QC): 4 Walk 10ft-Uneven Surface(QC): 4 Walk 50ft with 2 Turns (QC): 4 Walk 150 ft (QC): 4 Gait Level of Assist: 5 Gait Assistive Device: FWW Stairs (FIM): 2 # of Steps: 4 1 Step (curb) (QC): 4 Stairs Level Of Assist: 4 (CGA) PT Plan Treatment/Plan Treatment Plan: Continue Plan of Care Treatment Plan: Bed Mobility, Education, Functional Activity Issac, Functional Strength, Group Therapy, Gait, Safety, Therapeutic Exercise, Transfers Treatment Duration: May 29, 2017 Frequency: At least 5 of 7 days/Wk (IRF) Estimated Hrs Per Day: 1.5 hours per day Patient and/or Family Agrees t: Yes Safety Risks/Education Patient Education: Gait Training, Transfer Techniques Teaching Recipient: Patient Teaching Methods: Demonstration, Discussion Response to Teaching: Verbalize Understanding, Return Demonstration Time/GCodes Time In: 1315 Time Out: 1345 Total Billed Treatment Time: 30 Total Billed Treatment 1,FA10,EX20m G Codes Necessary: GABRIELLE Lake EMERGENCY MANAGEMENT CONSULTANT May 17, 2017 13:42
[2017-05-17 17:46] VITALS: BP 162/76
[2017-05-17] MEDS: warFARin 2 MG (COUMADIN) TAB PO SCH (18:04)
[2017-05-17] MEDS: ATORVASTATIN 10 MG (LIPITOR) TABLET PO SCH (20:04)
[2017-05-17] MEDS: DONEPEZIL 5 MG (ARICEPT) TAB PO SCH (20:05)
[2017-05-17] MEDS: inSUlin DETERMIR 1 UNIT/0.01 ML (LEVEMIR) CHARGE PER UNIT SQ SCH (20:05)
--- NOTE | 2017-05-17 20:20 | PM & R (SOAP) Progress Note ---
Subjective Time Seen by Provider: 20:10 Subjective/Events-last exam Patient was seen in her room this Evening Progressing well with therapies Appreciate Dr Cheema note INR noted Discussed case with RN.Pain better controlled Objective Exam Last Set of Vital Signs Vital Signs Date Time Temp Pulse Resp B/P (MAP) Pulse Ox O2 Delivery O2 Flow Rate FiO2 05/17/17 17:46 97.5 77 18 162/76 (104) 98 Room Air Capillary Refill : Less Than 3 Seconds I&O Intake and Output 05/17/17 00:00 Intake Total 2355 ml Balance 2355 ml Intake Oral 2355 ml # Voids 16 # Bowel Movements 1 General: Alert, Oriented X3, Cooperative, No Acute Distress HEENT: Atraumatic, PERRLA, EOMI, Mucous Memb Moist/[place] Neck: Supple, No JVD Lungs: Clear to Auscultation Heart: Regular Rate Abdomen: Normal Bowel Sounds, Soft, No Tenderness Extremities: Other (trace edema) Neuro: Other (weakness at hip s/p repair) Results Lab Laboratory Tests 05/14/17 20:35: Glucometer 330H 05/15/17 06:06: Glucometer 187H 05/15/17 06:27: Prothrombin Time 22.9H, INR Comment 2.0H 05/15/17 11:28: Glucometer 118H 05/15/17 16:05: Glucometer 112H 05/15/17 20:46: Glucometer 224H 05/16/17 06:10: Glucometer 96 05/16/17 07:27: Prothrombin Time 21.1H, INR Comment 1.8H 05/16/17 10:05: Glucometer 79 05/16/17 16:58: Glucometer 188H 05/16/17 20:57: Glucometer 173H 05/17/17 05:08: Glucometer 50*L 05/17/17 05:28: Glucometer 51*L 05/17/17 06:05: Glucometer 126H 05/17/17 06:26: Prothrombin Time 22.2H, INR Comment 2.0H 05/17/17 11:13: Glucometer 108 05/17/17 16:20: Glucometer 189H 05/17/17 20:04: Glucometer 130H Assessment/Plan Assessment Left intertrochanteric hip fracture s/p fal s/p ORIF Chronic coumadin therapy INR elevated coumadin on hold HTN on home meds controlled DM Meds adjusted by PCP GERD on protonix Memory loss with hx of lacunar strokes Acute on chronic anemia from recent surgery s/p transfusion DJD left knee Vol[place] gel Diarrhea improved with meds Plan Continue PT/OT F/U with PCP and ortho prn Changed schedule for AM dose of Tylenol and tramadol-Pain management Team Conference held yesterday-see report for full functional update and POC and ELOS Discharge set for next week to home with family and HHC Patient Min assist for transfers JAREN ADDISON MD May 17, 2017 20:20
[2017-05-18 05:13] VITALS: BP 169/73
[2017-05-18 06:05] LABS: INR 2.3 (0.8-1.4); PROTHROMBIN TIME PATIENT 25.6 SEC (12.2-14.7)
[2017-05-18] MEDS: PANTOPRAZOLE 40 MG (PROTONIX) TAB PO SCH (06:18)
[2017-05-18] MEDS: CALCIUM CARB + VIT D 600 MG (CALCARB + D) TAB PO SCH ×2 (06:18→16:40)
[2017-05-18] MEDS: LACTOBACILLUS Acidoph/Bulgar (LACTINEX/FLORANEX) TAB PO SCH ×3 (06:18→16:40)
[2017-05-18] MEDS: inSUlin ASPART (NovoLOG) 1 UNIT/0.01 ML (CHARGE PER UNIT) SC SCH ×3 (06:44→17:28)
[2017-05-18] MEDS: LOPERAMIDE 2 MG (IMODIUM) CAP PO PRN (08:20)
[2017-05-18] MEDS: LOSARTAN 50 MG (COZAAR) TAB PO SCH (08:20)
[2017-05-18] MEDS: CARVEDILOL 12.5 MG (COREG) TABLET PO SCH ×2 (08:20→21:02)
[2017-05-18] MEDS: ACETAMINOPHEN 500 MG TAB (TYLENOL) PO PRN (08:21)
[2017-05-18] MEDS: DICLOFENAC 1% GEL 100 GM (VOLTAREN) TUBE TOP SCH ×4 (08:21→21:02)
[2017-05-18] MEDS: MICONAZOLE 2% POWDER (DESENEX AF) 90 GM TOP SCH ×2 (08:21→21:02)
--- NOTE | 2017-05-18 09:00 | Occupational Ther Daily Note ---
OT Current Status-Daily Note Subjective Pt agreeable to therapy this morning. C/o 4/10 left knee pain. Mental Status/Objective Functional [place] Measure 0=Not Assessed/NA 4=Minimal Assistance 1=Total Assistance 5=Supervision or Setup 2=Maximal Assistance 6=Modified [place] 3=Moderate Assistance 7=Complete [place] ADL-Treatment Pt in restroom when therapist arrives. Pt able to complete toileting hygiene with SBA. Pt doffed pants with SBA using dressing stick. Donned Depends and sweat pants using dragline mechanic to start over feet. Stood from toilet with supervision using grab bar. Pt able to complete pant hike with SBA. Increased time for LE dressing. Pt declined bathing, but completed upper body sponge bath with set up. Functional [place] Measure 0=Not Assessed/NA 4=Minimal Assistance 1=Total Assistance 5=Supervision or Setup 2=Maximal Assistance 6=Modified [place] 3=Moderate Assistance 7=Complete IndependenceIRFPAI Quality Coding Scale 6 Independent with activity with or without an assistive device 5 Patient requires set up or clean up by helper. Patient completes activity by themselves 4 Supervision or touching assist (CGA). [place] provide cues , steadying assist 3 The helper provides less than half the effort to complete the activity 2 The helper provides more than half the effort to complete the activity 1 Dependent. The helper does all the effort to complete an activity 7 Patient refused to complete or attempt activity 9 The patient did not perform the activity before the current illness or injury 88 Not attempted due to Medical conditions or safety concerns Lower Body Dressing (FIM): 5 Lower Body Dressing (QC): 4 Toileting (FIM): 5 Toileting Hygiene (QC): 4 Other Treatment Gait to therapy gym with FWW. Pt took one seated rest break secondary to fatigue and knee pain. Arm bike x12 minutes to increase overall strength and activity tolerance needed for functional tasks. Pt completed activity with minimal resistance and steady pace. No rest breaks needed. Pt performed bilateral UE exercises to increase strength for ADLs and transfers. Pt performed shoulder flexion, forward press, biceps curls, and wrist flex/ext exercises x15 reps with 1# dowel wilian. Rest breaks between exercises. Pt completed fine motor task with nuts and bolts using bilateral UE with 1# weights in place to increase strength and coordination/manipulation skills. Pt sitting in therapy gym with PT present for treatment after session. OT Short Term Goals Short Term Goals Time Frame: May 15, 2017 Bathing(FIM): 4 Upper Body Dressing(FIM): 5 Lower Body Dressing(FIM): 4 Toileting(FIM): 4 Toilet/Commode Transfer(FIM): 5 Shower Transfer(FIM): 4 Additional Short Term Goals: 1-Demonstrate ADL Tasks, 2-Verbalize Understanding , 3-ImproveStrength/Issac 1=Demonstrate adherence to instructed precautions during ADL tasks. 2=Patient will verbalize/demonstrate understanding of assistive devices/ modifications for ADL. 3=Patient will improve strength/tolerance for activity to enable patient to perform ADL's. OT Long-Term Goals Accounts Officer Goals Time Frame: May 29, 2017 Eating (FIM): 6 Eating (QC): 6 Groomin Oral Hygiene (QC): 6 Bathing(FIM): 5 Shower/Bathe Self (QC): 5 Upper Body Dressing(FIM): 6 Upper Body Dressing (QC): 6 Lower Body Dressing(FIM): 5 Lower Body Dressing (QC): 5 On/Off Footwear (QC): 5 Toileting(FIM): 6 Toileting Hygiene (QC): 6 Toilet/Commode Transfer(FIM): 6 Toilet/Commode Transfer (QC): 6 Shower Transfer(FIM): 5 Additional Goals: 1-Demonstrate ADL Tasks, 2-Verbalize Understanding, 3- ImproveStrength/Issac 1=Demonstrate adherence to instructed precautions during ADL tasks. 2=Patient will verbalize/demonstrate understanding of assistive devices/ modifications for ADL. 3=Patient will improve strength/tolerance for activity to enable patient to perform ADL's. OT Education/Plan Discharge Recommendations Plan/Recommendations: Continue POC Treatment Plan/Plan of Care Patient would benefit from OT for education, treatment and training to promote independence in ADL's, mobility, safety and/or upper extremity function for ADL' s. Plan of Care: ADL Retraining, Functional Mobility, Group Exercise/Act as Ind, UE Funct Exercise/Act Treatment Duration: May 29, 2017 Frequency: At least 5 of 7 days/Wk (IRF) Estimated Hrs Per Day: 1.5 hours per day Agreement: Yes Rehab Potential: Fair Time/GCodes Start Time: 08:00 Stop Time: 09:00 Total Time Billed (hr/min): 60 Billed Treatment Time 1 visit, ADLx2(25minutes), EXx2(35minutes) BRIGHT SANTIAGO OT May 18, 2017 09:00
--- NOTE | 2017-05-18 10:08 | Physical Therapy Daily Note ---
PT Daily Note-Current Subjective Agrees to Rx. Pain left knee at 6/10. Discussed her steps at home situation Pain Numeric Pain Scale: 6 Location: Left Location Body Site: Hip Pain Description: Ache Mental Status Patient Orientation: Normal For Age Transfers Functional [place] Measure 0=Not Assessed/NA 4=Minimal Assistance 1=Total Assistance 5=Supervision or Setup 2=Maximal Assistance 6=Modified [place] 3=Moderate Assistance 7=Complete IndependenceIRFPAI Quality Coding Scale 6 Independent with activity with or without an assistive device 5 Patient requires set up or clean up by helper. Patient completes activity by themselves 4 Supervision or touching assist (CGA). [place] provide cues , steadying assist 3 The helper provides less than half the effort to complete the activity 2 The helper provides more than half the effort to complete the activity 1 Dependent. The helper does all the effort to complete an activity 7 Patient refused to complete or attempt activity 9 The patient did not perform the activity before the current illness or injury 88 Not attempted due to Medical conditions or safety concerns Transfers (B, C, W/C) (FIM): 5 Scootin Rollin Supine to/from Sit: 5 Sit to/from Stand: 6 Bed to/from Chair: 5 needs cues for positioning to TRF sup to sit . is near consistent indep approaching from left side of bed Weight Bearing Right Lower Extremity: Right Full Weight Bearing Left Lower Extremity: Left Weight Bearing/Tolerated Gait Training Does the Patient Walk?: Yes Gait (FIM): 5 Distance (FIM): 3=150 ft (x3) Gait Level of Assist: 5 Gait Persons Needed: 1 Gait Assistive Device: FWW heavy wt bearing on FWW Wheelchair Training Does the Pt Use a Wheelchair?: No Stair Training Stair Training: Handrails/: 1 handrail (and AIRLINE HOSTESS) Stairs (FIM): 1 #of Steps: 1 Stairs: Pattern: Step to Level of Assist: 3 (heavy wt bearing on RUE, parallel bar/rail on LUE) Exercises Supine Ex: Ankle pumps, Quad Set, Rolling, Glut sets, Heel Slides, Short Arc Quads, Scooting, Straight leg raise, Hip abd/add Supine Reps: 12 Seated Therapy Exercises: Ankle pumps, Sit to stand, Long arc quads Seated Reps: 12 Assessment Current Status: Good Progress dependent on steps when simulating home situation PT Short Term Goals Short Term Goals Time Frame: May 15, 2017 Gait (FIM): 5 Gait Distance Comment: 200' Gait Level of Assist: 5 PT Jail Goals It Technical Specialist Goals PT Jail Goals Time Frame: May 29, 2017 Transfers (B,C,W/C) (FIM): 5 Sit to Lying (QC): 4 Lying-Sitting on Side/Bed(QC): 4 Sit to Stand (QC): 4 Rollin Roll Left to Right (QC): 4 Chair/Ecc-hd-Murqj Xfer(QC): 4 Car Transfer (QC): 4 Gait (FIM): 5 Distance: 300' Walk 10 feet (QC): 4 Walk 10ft-Uneven Surface(QC): 4 Walk 50ft with 2 Turns (QC): 4 Walk 150 ft (QC): 4 Gait Level of Assist: 5 Gait Assistive Device: FWW Stairs (FIM): 2 # of Steps: 4 1 Step (curb) (QC): 4 Stairs Level Of Assist: 4 (CGA) PT Plan Treatment/Plan Treatment Plan: Continue Plan of Care Treatment Plan: Bed Mobility, Education, Functional Activity Issac, Functional Strength, Group Therapy, Gait, Safety, Therapeutic Exercise, Transfers Treatment Duration: May 29, 2017 Frequency: At least 5 of 7 days/Wk (IRF) Estimated Hrs Per Day: 1.5 hours per day Patient and/or Family Agrees t: Yes Safety Risks/Education Patient Education: Gait Training, Transfer Techniques, Steps Teaching Recipient: Patient Teaching Methods: Demonstration, Discussion Response to Teaching: Verbalize Understanding, Return Demonstration, Reinforcement Needed Time/GCodes Time In: 900 Time Out: 1000 Total Billed Treatment Time: 60 Total Billed Treatment 1,EX20m,FA25m,GT15m G Codes Necessary: GABRIELLE Lake PTA May 18, 2017 10:08
--- NOTE | 2017-05-18 12:11 | Progress Note (SOAP) ---
Subjective Date Seen by Provider: May 18, 2017 Time Seen by Provider: 12:09 Subjective/Events-last exam Fwup Left hip fracture, DM--insulin requiring, Chronic coumadin therapy, Hypertension. BP still running high. Blood sugars better. Objective Exam Vital Signs Date Time Temp Pulse Resp B/P (MAP) Pulse Ox O2 Delivery O2 Flow Rate FiO2 05/18/17 09:00 Room Air 05/18/17 05:13 97.0 85 20 169/73 (105) 98 Room Air 05/17/17 20:10 Room Air 05/17/17 17:46 97.5 77 18 162/76 (104) 98 Room Air I & O 05/18/17 07:00 Intake Total 1650 ml Balance 1650 ml Capillary Refill : Less Than 3 Seconds General Appearance: No Apparent Distress Neck: Supple Respiratory: Lungs Clear Gastrointestinal: normal bowel sounds, non tender, soft Extremity: Non Tender, No Calf Tenderness, Inflammation (chronic), Pedal Edema Neurologic/Psychiatric: Alert, Oriented x3 Skin: Warm/Dry Results Lab Laboratory Tests 05/17/17 16:20: Glucometer 189H 05/17/17 20:04: Glucometer 130H 05/18/17 04:41: Glucometer 91 05/18/17 05:45: Prothrombin Time 25.6H, INR Comment 2.3H 05/18/17 06:17: Glucometer 141H 05/18/17 11:03: Glucometer 107 Assessment/Plan Assessment/Plan Assess & Plan/Chief Complaint 1. Left intertrochanteric hip fracture--S/P ORIF, pain control, PT/OT 2. 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 Hypertension--add low dose HCTZ 4. Diabetes mellitus--insulin requiring--continue levemir and continue SSI 5. GERD--resumed protonix 6. Memory Loss--recent CT scan shows microvascular changes with history of lacunar infarcts and has a family history of alzheimers--started aricept 7. Acute on Chronic Anemia from recent surgery--S/P transfusion, H/H stable 8. Left knee pain/OA--using SUSAN wrap to help 9. Diarrhea--improved with addition of lactobacillus and immodium Clinical Quality Measures DVT/VTE Risk/Contraindication: Risk Factor Score Per Nursin RFS Level Per Nursing on Admit: 4+=Very High SHAKEEL BRUCE DO May 18, 2017 12:10 pm
[2017-05-18] MEDS ORDERED: HYDROCHLOROTHIAZIDE 12.5 MG (HCTZ) CAP PO NR (12:15)
--- NOTE | 2017-05-18 13:07 | PM & R (SOAP) Progress Note ---
Subjective Time Seen by Provider: 10:50 Subjective/Events-last exam Patient was seen in her room this AM Case discussed with NICHO Cheema note and orders.Patient Modified Independent for transfers.Discharge set for Sunday05-21-17 to home with family Objective Exam Last Set of Vital Signs Vital Signs Date Time Temp Pulse Resp B/P (MAP) Pulse Ox O2 Delivery O2 Flow Rate FiO2 05/18/17 09:00 Room Air 05/18/17 05:13 97.0 85 20 169/73 (105) 98 Capillary Refill : Less Than 3 Seconds I&O Intake and Output 05/18/17 00:00 Intake Total 2000 ml Balance 2000 ml Intake Oral 2000 ml # Voids 13 # Bowel Movements 2 General: Alert, Oriented X3, Cooperative, No Acute Distress HEENT: Atraumatic, PERRLA, EOMI, Mucous Memb Moist/[place] Neck: Supple, No JVD Lungs: Clear to Auscultation Heart: Regular Rate Abdomen: Normal Bowel Sounds, Soft, No Tenderness Extremities: Other (trace edema) Neuro: Other (weakness at hip s/p repair) Results Lab Laboratory Tests 05/15/17 16:05: Glucometer 112H 05/15/17 20:46: Glucometer 224H 05/16/17 06:10: Glucometer 96 05/16/17 07:27: Prothrombin Time 21.1H, INR Comment 1.8H 05/16/17 10:05: Glucometer 79 05/16/17 16:58: Glucometer 188H 05/16/17 20:57: Glucometer 173H 05/17/17 05:08: Glucometer 50*L 05/17/17 05:28: Glucometer 51*L 05/17/17 06:05: Glucometer 126H 05/17/17 06:26: Prothrombin Time 22.2H, INR Comment 2.0H 05/17/17 11:13: Glucometer 108 05/17/17 16:20: Glucometer 189H 05/17/17 20:04: Glucometer 130H 05/18/17 04:41: Glucometer 91 05/18/17 05:45: Prothrombin Time 25.6H, INR Comment 2.3H 05/18/17 06:17: Glucometer 141H 05/18/17 11:03: Glucometer 107 Assessment/Plan Assessment Left intertrochanteric hip fracture s/p fal s/p ORIF Chronic coumadin therapy INR elevated coumadin on hold HTN on home meds controlled DM Meds adjusted by PCP GERD on protonix Memory loss with hx of lacunar strokes Acute on chronic anemia from recent surgery s/p transfusion DJD left knee Voltaran gel Diarrhea improved with meds Plan Continue PT/OT F/U with PCP and ortho prn Changed schedule for AM dose of Tylenol and tramadol-Pain management Team Conference held 05-16-17-see report for full functional update and POC and ELOS Discharge remains set for Sunday05-21-17 to home with family and [facility] Current meds reviewed Patient will have f/u as an outpatient with PCP and Orthopedics JAREN ADDISON MD May 18, 2017 13:07
[2017-05-18] MEDS ORDERED: HYDR12.5 PO ×2 (13:23)
[2017-05-18] MEDS ORDERED: DICL100G18 TOP (13:23)
[2017-05-18] MEDS ORDERED: ACID1TAB PO (13:23)
[2017-05-18] MEDS ORDERED: DONE5TAB8 PO (13:23)
[2017-05-18] MEDS ORDERED: INSU100V16 SC (13:23)
[2017-05-18] MEDS ORDERED: MICO90PO TOP (13:23)
[2017-05-18] MEDS ORDERED: INSU100V5 SQ (13:23)
[2017-05-18] MEDS ORDERED: LOSA50TA36 PO (13:23)
--- NOTE | 2017-05-18 14:42 | Therapy Group Daily Note ---
Therapy Daily Group Note Patient Education Topic Home Safety, Other List Below (continuum of care : acute to rehab to home) Exercises LE Seated Exercise, UE Exercise Other/Notes Pt. participated in PT OT group this date. Pt. ambulated to from [facility]. Pts socialized, introduced selves and shared mutual interests etc. Pts interacted with [place] Home safety question/answer game with bag toss and seated U&L extremity exercises . Pts interacted well. Local resources after DC were shared. Pt to room after , call de [place] at hand Start Time: 13:00 Stop Time: 14:10 Total Billed Treatment Time: 70 Total Billed Treatment 1,GRP GABRIELLE DUFF HOT MILL WORKER May 18, 2017 14:42
[2017-05-18] MEDS: warFARin 2 MG (COUMADIN) TAB PO SCH (18:04)
[2017-05-18 18:21] VITALS: BP 161/70
[2017-05-18] MEDS: DONEPEZIL 5 MG (ARICEPT) TAB PO SCH (21:01)
[2017-05-18] MEDS: ATORVASTATIN 10 MG (LIPITOR) TABLET PO SCH (21:02)
[2017-05-18] MEDS: inSUlin DETERMIR 1 UNIT/0.01 ML (LEVEMIR) CHARGE PER UNIT SQ SCH (21:02)
[2017-05-19] MEDS: ACETAMINOPHEN 500 MG TAB (TYLENOL) PO PRN ×3 (00:11→15:34)
[2017-05-19 05:23] VITALS: BP 165/75
[2017-05-19] MEDS: PANTOPRAZOLE 40 MG (PROTONIX) TAB PO SCH (06:04)
[2017-05-19] MEDS: inSUlin ASPART (NovoLOG) 1 UNIT/0.01 ML (CHARGE PER UNIT) SC SCH ×3 (06:04→17:24)
[2017-05-19] MEDS: LACTOBACILLUS Acidoph/Bulgar (LACTINEX/FLORANEX) TAB PO SCH ×3 (06:04→15:34)
[2017-05-19] MEDS: CALCIUM CARB + VIT D 600 MG (CALCARB + D) TAB PO SCH ×2 (06:04→17:24)
[2017-05-19 06:46] LABS: INR 2.2 (0.8-1.4); PROTHROMBIN TIME PATIENT 24.7 SEC (12.2-14.7)
[2017-05-19] MEDS: CARVEDILOL 12.5 MG (COREG) TABLET PO SCH ×2 (08:24→20:03)
[2017-05-19] MEDS: HYDROCHLOROTHIAZIDE 12.5 MG (HCTZ) CAP PO SCH (08:24)
[2017-05-19] MEDS: LOSARTAN 50 MG (COZAAR) TAB PO SCH (08:25)
[2017-05-19] MEDS: DICLOFENAC 1% GEL 100 GM (VOLTAREN) TUBE TOP SCH ×4 (08:27→20:04)
[2017-05-19] MEDS: MICONAZOLE 2% POWDER (DESENEX AF) 90 GM TOP SCH ×2 (08:29→20:04)
[2017-05-19] MEDS: LOPERAMIDE 2 MG (IMODIUM) CAP PO PRN (08:29)
[2017-05-19 08:30] VITALS: BP 150/80
--- NOTE | 2017-05-19 12:31 | Physical Therapy Daily Note ---
PT Daily Note-Current Subjective Pt agreeable. Pain Numeric Pain Scale: 6 Location: Left Location Body Site: Knee Pain Description: Ache Comment: receiving pain meds Mental Status Patient Orientation: Person, Place, Time, Situation Transfers Functional [place] Measure 0=Not Assessed/NA 4=Minimal Assistance 1=Total Assistance 5=Supervision or Setup 2=Maximal Assistance 6=Modified [place] 3=Moderate Assistance 7=Complete IndependenceIRFPAI Quality Coding Scale 6 Independent with activity with or without an assistive device 5 Patient requires set up or clean up by helper. Patient completes activity by themselves 4 Supervision or touching assist (CGA). [place] provide cues , steadying assist 3 The helper provides less than half the effort to complete the activity 2 The helper provides more than half the effort to complete the activity 1 Dependent. The helper does all the effort to complete an activity 7 Patient refused to complete or attempt activity 9 The patient did not perform the activity before the current illness or injury 88 Not attempted due to Medical conditions or safety concerns Sit to Lying (QC): 3 Sit to Stand (QC): 5 Weight Bearing Right Lower Extremity: Right Full Weight Bearing Left Lower Extremity: Left Weight Bearing/Tolerated Gait Training Does the Patient Walk?: Yes Distance (FIM): 3=150 ft Distance: 150 Walk 10 feet (QC): 5 Walk 50 ft with 2 Turns(QC): 5 Walk 150 ft (QC): 5 Gait Level of Assist: 6 Gait Assistive Device: FWW Slow, antalgic but safe Stair Training Stair Training: Handrails/: 1 handrail Stairs (FIM): 1 #of Steps: 1 1 Step (curb) (QC): 3 Stairs: Pattern: Step to Level of Assist: 3 Rail on (L), DESKTOP SUPPORT ASSOCIATE on (R) x 2 trials with VCS for sequencing. Treatments Gait training on step. Returned to bed with all needs met. Assessment Pt tolerated well. Improved safety, confidence with DESKTOP SUPPORT ASSOCIATE at elbow instead of hand on (R) PT Short Term Goals Short Term Goals Time Frame: May 15, 2017 Gait (FIM): 5 Gait Distance Comment: 200' Gait Level of Assist: 5 PT Senior Living Goals Senior Living Goals PT Audit Lead Goals Time Frame: May 29, 2017 Transfers (B,C,W/C) (FIM): 5 Sit to Lying (QC): 4 Lying-Sitting on Side/Bed(QC): 4 Sit to Stand (QC): 4 Rollin Roll Left to Right (QC): 4 Chair/Iyv-lu-Pmboz Xfer(QC): 4 Car Transfer (QC): 4 Gait (FIM): 5 Distance: 300' Walk 10 feet (QC): 4 Walk 10ft-Uneven Surface(QC): 4 Walk 50ft with 2 Turns (QC): 4 Walk 150 ft (QC): 4 Gait Level of Assist: 5 Gait Assistive Device: FWW Stairs (FIM): 2 # of Steps: 4 1 Step (curb) (QC): 4 Stairs Level Of Assist: 4 (CGA) PT Plan Problem List Problem List: Activity Tolerance, Functional Strength, Safety, Balance, Gait, Transfer, Bed Mobility, ROM Treatment/Plan Treatment Plan: Continue Plan of Care Treatment Plan: Bed Mobility, Education, Functional Activity Issac, Functional Strength, Group Therapy, Gait, Safety, Therapeutic Exercise, Transfers Treatment Duration: May 29, 2017 Frequency: At least 5 of 7 days/Wk (IRF) Estimated Hrs Per Day: 1.5 hours per day Patient and/or Family Agrees t: Yes Safety Risks/Education Patient Education: Gait Training, Steps Teaching Recipient: Patient Teaching Methods: Demonstration, Discussion Response to Teaching: Verbalize Understanding, Return Demonstration Time/GCodes Time In: 1202 Time Out: 1219 Total Billed Treatment Time: 17 Total Billed Treatment 1, GT x 17' G Codes Necessary: LEX Wen DPT May 19, 2017 12:31
--- NOTE | 2017-05-19 14:00 | Progress Note-Standard ---
Standard Progress Note Progress Notes/Assess & Plan Date Seen 05/19/17 Time Seen by Provider: 11:30 Assess & Plan/Chief Complaint Patient doing much better Bowels are improved Denies any pain Therapy is really helping her and she feels that she is ahead of schedule Fever, vital signs stable, pleasant, improved Regular rate and rhythm, clear to auscultation bilaterally No edema Assessment per PCP: 1. Left intertrochanteric hip fracture--S/P ORIF, pain control, PT/OT 2. 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 Hypertension--add low dose HCTZ 4. Diabetes mellitus--insulin requiring--continue levemir and continue SSI 5. GERD--resumed protonix 6. Memory Loss--recent CT scan shows microvascular changes with history of lacunar infarcts and has a family history of alzheimers--started aricept 7. Acute on Chronic Anemia from recent surgery--S/P transfusion, H/H stable 8. Left knee pain/OA--using SUSAN wrap to help 9. Diarrhea--improved with addition of lactobacillus and immodium Plan: Monitor closely IRF PERICO ALVA DO May 19, 2017 14:00
[2017-05-19 17:58] VITALS: BP 163/78
[2017-05-19] MEDS: warFARin 2 MG (COUMADIN) TAB PO SCH (18:26)
[2017-05-19] MEDS ORDERED: PHENAZOPYRIDINE 100 MG (PYRIDIUM) TABLET PO PRN (18:45)
[2017-05-19] MEDS ORDERED: amLODIPine 5 MG (NORVASC) TAB PO ONE (19:30)
[2017-05-19 19:37] LABS: BILIRUBIN,URINE NEGATIVE (NEGATIVE); CLARITY,URINE VERY CLOUDY; COLOR,URINE YELLOW; GLUCOSE, URINE (UA) 3+ (NEGATIVE); KETONES,URINE 1+ (NEGATIVE); LEUKOCYTE ESTERASE ,URINE 3+ (NEGATIVE); NITRITE,URINE POSITIVE (NEGATIVE); PH,URINE 6 (5-9); PROTEIN,URINE 2+ (NEGATIVE); UROBILINOGEN,URINE NORMAL (NORMAL)
[2017-05-19 19:59] LABS: BACTERIA,URINE LARGE /HPF; RBC,URINE 0-2 /HPF; WBC,URINE 50-100 /HPF
[2017-05-19] MEDS: DONEPEZIL 5 MG (ARICEPT) TAB PO SCH (20:03)
[2017-05-19] MEDS: ATORVASTATIN 10 MG (LIPITOR) TABLET PO SCH (20:03)
[2017-05-19] MEDS: inSUlin DETERMIR 1 UNIT/0.01 ML (LEVEMIR) CHARGE PER UNIT SQ SCH (20:04)
[2017-05-19] MEDS: TRIM/SULFAMETH 160/800 (SEPTRA DS) TAB PO SCH (20:37)
[2017-05-20] MEDS: ACETAMINOPHEN 500 MG TAB (TYLENOL) PO PRN ×3 (00:50→20:17)
[2017-05-20 04:00] VITALS: BP 165/73
[2017-05-20] MEDS: inSUlin ASPART (NovoLOG) 1 UNIT/0.01 ML (CHARGE PER UNIT) SC SCH ×3 (06:18→16:32)
[2017-05-20] MEDS: LACTOBACILLUS Acidoph/Bulgar (LACTINEX/FLORANEX) TAB PO SCH ×3 (06:18→16:08)
[2017-05-20] MEDS: TRIM/SULFAMETH 160/800 (SEPTRA DS) TAB PO SCH ×2 (06:18→16:08)
[2017-05-20] MEDS: CALCIUM CARB + VIT D 600 MG (CALCARB + D) TAB PO SCH ×2 (06:18→16:08)
[2017-05-20] MEDS: PANTOPRAZOLE 40 MG (PROTONIX) TAB PO SCH (06:18)
[2017-05-20 07:15] LABS: BASOPHILS % (AUTO) 1 % (0-10); EOSINOPHILS # (AUTO) 0.1 10^3/uL (0.0-0.3); EOSINOPHILS % (AUTO) 2 % (0-10); HEMATOCRIT 32 % (35-52); HEMOGLOBIN 10.3 G/DL (11.5-16.0); LYMPHOCYTES # (AUTO) 1.2 X 10^3 (1.0-4.0); LYMPHOCYTES % (AUTO) 21 % (12-44); MEAN CORPUSCULAR HEMOGLOBIN 29 PG (25-34); MEAN CORPUSCULAR HGB CONC 32 G/DL (32-36); MEAN CORPUSCULAR VOLUME 90 FL (80-99); MEAN PLATELET VOLUME 9.7 FL (7.4-10.4); MONOCYTES # (AUTO) 0.6 X 10^3 (0.0-1.0); MONOCYTES % (AUTO) 11 % (0-12); NEUTROPHILS # (AUTO) 3.7 X 10^3 (1.8-7.8); NEUTROPHILS % (AUTO) 66 % (42-75); PLATELET COUNT 458 10^3/uL (130-400); RED BLOOD COUNT 3.56 10^6/uL (4.35-5.85); RED CELL DISTRIBUTION WIDTH 13.5 % (10.0-14.5); WHITE BLOOD COUNT 5.6 10^3/uL (4.3-11.0)
[2017-05-20 07:25] LABS: INR 2.4 (0.8-1.4); PROTHROMBIN TIME PATIENT 26.3 SEC (12.2-14.7)
[2017-05-20 07:35] LABS: ALBUMIN 3.3 GM/DL (3.2-4.5); BILIRUBIN,TOTAL 0.7 MG/DL (0.1-1.0); CALCIUM 8.8 MG/DL (8.5-10.1); CREATININE SERUM 1.29 MG/DL (0.60-1.30); POTASSIUM 3.8 MMOL/L (3.6-5.0); TOTAL PROTEIN 6.5 GM/DL (6.4-8.2)
[2017-05-20] MEDS: CARVEDILOL 12.5 MG (COREG) TABLET PO SCH ×2 (08:01→20:17)
[2017-05-20] MEDS: LOSARTAN 50 MG (COZAAR) TAB PO SCH (08:01)
[2017-05-20] MEDS: amLODIPine 5 MG (NORVASC) TAB PO SCH (08:01)
[2017-05-20] MEDS: HYDROCHLOROTHIAZIDE 12.5 MG (HCTZ) CAP PO SCH (08:01)
[2017-05-20] MEDS: DICLOFENAC 1% GEL 100 GM (VOLTAREN) TUBE TOP SCH ×4 (08:02→20:19)
[2017-05-20] MEDS: MICONAZOLE 2% POWDER (DESENEX AF) 90 GM TOP SCH ×2 (08:10→20:09)
[2017-05-20] MEDS: LOPERAMIDE 2 MG (IMODIUM) CAP PO PRN (10:26)
--- NOTE | 2017-05-20 13:35 | Progress Note-Standard ---
Standard Progress Note Progress Notes/Assess & Plan Date Seen 05/20/17 Time Seen by Provider: 12:45 Assess & Plan/Chief Complaint Patient doing much better Bowels are improved and she has a lot of loose stool issues at home Denies any pain Going home tomorrow Had some dysuria so obtained UA started on Bactrim twice daily after review of hearing culture results in the past and urine culture is currently preliminary Tolerating Bactrim well Fever, vital signs stable, pleasant, improved Regular rate and rhythm, clear to auscultation bilaterally No edema Assessment per PCP: Acute UTI placed on Bactrim empirically urine culture pending 1. Left intertrochanteric hip fracture--S/P ORIF, pain control, PT/OT 2. 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 Hypertension--add low dose HCTZ 4. Diabetes mellitus--insulin requiring--continue levemir and continue SSI 5. GERD--resumed protonix 6. Memory Loss--recent CT scan shows microvascular changes with history of lacunar infarcts and has a family history of alzheimers--started aricept 7. Acute on Chronic Anemia from recent surgery--S/P transfusion, H/H stable 8. Left knee pain/OA--using SUSAN wrap to help 9. Diarrhea--improved with addition of lactobacillus and immodium but will start Questran twice a day scheduled Plan: Monitor closely IRF Follow-up and urine culture Questran twice a day scheduled Labs Laboratory Tests 05/20/17 06:48 05/20/17 06:49 PERICO ALVA DO May 20, 2017 13:35
[2017-05-20] MEDS: CHOLESTYRAMINE 4 GM (QUESTRAN LITE, PREVALITE) PKT PO SCH ×2 (13:46→20:09)
[2017-05-20 17:53] VITALS: BP 119/79
[2017-05-20] MEDS: warFARin 2 MG (COUMADIN) TAB PO SCH (17:58)
[2017-05-20] MEDS: ATORVASTATIN 10 MG (LIPITOR) TABLET PO SCH (20:17)
[2017-05-20] MEDS: DONEPEZIL 5 MG (ARICEPT) TAB PO SCH (20:17)
[2017-05-20] MEDS: inSUlin DETERMIR 1 UNIT/0.01 ML (LEVEMIR) CHARGE PER UNIT SQ SCH (20:18)
[2017-05-21 05:11] VITALS: BP 157/71
[2017-05-21] MEDS: CALCIUM CARB + VIT D 600 MG (CALCARB + D) TAB PO SCH (06:14)
[2017-05-21] MEDS: TRIM/SULFAMETH 160/800 (SEPTRA DS) TAB PO SCH (06:14)
[2017-05-21] MEDS: PANTOPRAZOLE 40 MG (PROTONIX) TAB PO SCH (06:14)
[2017-05-21] MEDS: LACTOBACILLUS Acidoph/Bulgar (LACTINEX/FLORANEX) TAB PO SCH ×2 (06:14→11:14)
[2017-05-21] MEDS: inSUlin ASPART (NovoLOG) 1 UNIT/0.01 ML (CHARGE PER UNIT) SC SCH ×2 (06:44→11:14)
[2017-05-21] MEDS: LOSARTAN 50 MG (COZAAR) TAB PO SCH (08:57)
[2017-05-21] MEDS: HYDROCHLOROTHIAZIDE 12.5 MG (HCTZ) CAP PO SCH (08:57)
[2017-05-21] MEDS: CARVEDILOL 12.5 MG (COREG) TABLET PO SCH (08:57)
[2017-05-21] MEDS: DICLOFENAC 1% GEL 100 GM (VOLTAREN) TUBE TOP SCH ×2 (08:57→13:22)
[2017-05-21] MEDS: amLODIPine 5 MG (NORVASC) TAB PO SCH (08:57)
[2017-05-21] MEDS: MICONAZOLE 2% POWDER (DESENEX AF) 90 GM TOP SCH (08:58)
[2017-05-21] MEDS: CHOLESTYRAMINE 4 GM (QUESTRAN LITE, PREVALITE) PKT PO SCH (08:58)
[2017-05-21] MEDS: ACETAMINOPHEN 500 MG TAB (TYLENOL) PO PRN ×2 (09:04→13:44)
--- NOTE | 2017-05-21 09:24 | D/C HH Face to Face Order ---
D/C Face to Face Orders Instructions for Patient Patient Instructions/FollowUp: Dr. Rafaela Levi Physician to follow Patient: Dr. Levi Discharge Diet for Home: Regular Diet Patient Data-Allergies,Ht & Wt Patient Allergies: Coded Allergies: Penicillins (Verified Allergy, Intermediate, HIVES, 12/21/14) hydrocodone (Verified Adverse Reaction, Unknown, VOMITING, 11/04/13) Height (Feet): 5 Height (Inches): 2.00 Weight (Pounds): 183 Weight (Ounces): 6.4 Home Health Need/Face to Face Date of Face to Face: May 21, 2017 Clinical Findings: Generalized weakness and fatigue, Muscle weakness, Shortness of breath, Unsteady gait I have seen Pt [id number]: Yes Discharged To: Home Diagnosis/Conditions: Hip fracture Problems/Diagnosis/Condition: Patient is Homebound due to: Muscle weakness Homebound Status Due to the above stated illness, injury or surgical procedure (medical condition or diagnosis) and associated clinical findings, the patient is homebound because of his/her inability to leave home except with aid of a supportive device and/or person AND leaving the home requires a considerable and taxing effort or is medically contraindicated. Pt req the following assistanc: Walker Home Health Nursing Orders Home Health Services Order: Nursing Services, Production Manager-Evaluate & Treat, Physical Therapy-Evaluate & Treat BP monitoring Home Health Infusion Therapy Line Start Date: May 08, 2017 Line Start Time: 2119 Line Type: [place] Lock Site Location: Hand Therapy Orders Therapy Orders: OT (must have SN or PT order), Physical Therapy Therapy Specific Orders: Eval assistive deivces, Teach enviro modifications/ safety, Gait training, Increase strength/endurance Certify Stmt I certify that this patient is under my care and that I, a nurse practitioner or a physician; a tourist information assistant working with me, had a face to face encounter that - meets the physician face to face encounter requirements with this patient as dated. I personally scribed for JAREN ADDISON MD (MARGIE) on 05/16/17 at 16:31. Electronically submitted by Gertrude Rose ([id number]). I personally scribed for JAREN ADDISON MD) on 05/18/17 at 13:08. Electronically submitted by Gertrude Rose ([id number]). I personally scribed for JAREN ADDISON MD ([facility]) on 05/18/17 at 13:20. Electronically submitted by Gertrude Rose ([id number]). I personally scribed for JAREN ADDISON MD ([facility]) on 05/21/17 at 09:24. Electronically submitted by Gertrude Rose ([id number]). JAREN ADDISON MD May 16, 2017 16:29
--- NOTE | 2017-05-21 09:53 | Occupational Ther Daily Note ---
OT Current Status-Daily Note Subjective Pt in bed, agrees to treatment. Pt reports 4/10 pain in left knee. Mental Status/Objective Functional [place] Measure 0=Not Assessed/NA 4=Minimal Assistance 1=Total Assistance 5=Supervision or Setup 2=Maximal Assistance 6=Modified [place] 3=Moderate Assistance 7=Complete [place] ADL-Treatment Pt supine to sit without assist. Pt retrieved clothing from closet using FWW for balance. To restroom with FWW. Pt transferred to walk in shower with SBA using grab bars. Doff clothing without assistance. Uses dressing stick to doff pants. Pt completed seated bathing using hand held shower and long handled sponge. Pt able to wash/dry all areas with set up. Don pullover shirt with modified independence. Pt donned Depends and pants with set up using dynamics ax developer to start over feet. Pt donned socks with set up and donned shoes using long handled shoe horn. Pt demonstrated ability to perform transfer to [facility] over toilet with modified independence. Pt does not need to void at this time, but states she has been completing toileting with supervision only. Pt stood at sink to comb hair with modified independence. Pt states she has already completed oral care without assistance. Pt transferred to chair, sitting with needs met after session. Plan is for pt to d/c home today. Pt has no questions or concerns at this time. Functional [place] Measure 0=Not Assessed/NA 4=Minimal Assistance 1=Total Assistance 5=Supervision or Setup 2=Maximal Assistance 6=Modified [place] 3=Moderate Assistance 7=Complete IndependenceIRFPAI Quality Coding Scale 6 Independent with activity with or without an assistive device 5 Patient requires set up or clean up by helper. Patient completes activity by themselves 4 Supervision or touching assist (CGA). [place] provide cues , steadying assist 3 The helper provides less than half the effort to complete the activity 2 The helper provides more than half the effort to complete the activity 1 Dependent. The helper does all the effort to complete an activity 7 Patient refused to complete or attempt activity 9 The patient did not perform the activity before the current illness or injury 88 Not attempted due to Medical conditions or safety concerns Eating (FIM): 6 (Pt reports feeding self, managing containers, and cutting food without assist.) Eating (QC): 6 Grooming (FIM): 6 Oral Hygiene (QC): 6 Bathing (FIM): 5 Shower/Bathe Self (QC): 5 Upper Body (FIM): 6 Upper Body Dressing (QC): 6 Lower Body Dressing (FIM): 5 Lower Body Dressing (QC): 5 On/Off Footwear (QC): 5 Toileting (FIM): 5 (by report) Toileting Hygiene (QC): 5 Toilet/Commode Transfer (FIM): 6 Toilet Transfer (QC): 6 Shower Transfer(FIM): 5 OT Short Term Goals Short Term Goals Time Frame: May 15, 2017 Bathing(FIM): 4 Upper Body Dressing(FIM): 5 Lower Body Dressing(FIM): 4 Toileting(FIM): 4 Toilet/Commode Transfer(FIM): 5 Shower Transfer(FIM): 4 Additional Short Term Goals: 1-Demonstrate ADL Tasks, 2-Verbalize Understanding , 3-ImproveStrength/Issac 1=Demonstrate adherence to instructed precautions during ADL tasks. 2=Patient will verbalize/demonstrate understanding of assistive devices/ modifications for ADL. 3=Patient will improve strength/tolerance for activity to enable patient to perform ADL's. OT Fdc Goals [employer] Wafers Marker Goals Time Frame: May 29, 2017 Eating (FIM): 6 (met 05/21/17) Eating (QC): 6 (6-MET) Groomin (met 05/21/17) Oral Hygiene (QC): 6 (6-MET) Bathing(FIM): 5 (met 05/21/17) Shower/Bathe Self (QC): 5 (5-MET) Upper Body Dressing(FIM): 6 (met 05/21/17) Upper Body Dressing (QC): 6 (6-MET) Lower Body Dressing(FIM): 5 (met 05/21/17) Lower Body Dressing (QC): 5 (5-MET) On/Off Footwear (QC): 5 (5-MET) Toileting(FIM): 6 (not met) Toileting Hygiene (QC): 6 (5-not met) Toilet/Commode Transfer(FIM): 6 (met 05/21/17) Toilet/Commode Transfer (QC): 6 (6-MET) Shower Transfer(FIM): 5 (met 05/21/17) Additional Goals: 1-Demonstrate ADL Tasks, 2-Verbalize Understanding, 3- ImproveStrength/Issac 1=Demonstrate adherence to instructed precautions during ADL tasks. 2=Patient will verbalize/demonstrate understanding of assistive devices/ modifications for ADL. 3=Patient will improve strength/tolerance for activity to enable patient to perform ADL's. OT Education/Plan Discharge Recommendations Plan/Recommendations: Continue POC Treatment Plan/Plan of Care Patient would benefit from OT for education, treatment and training to promote independence in ADL's, mobility, safety and/or upper extremity function for ADL' s. Plan of Care: ADL Retraining, Functional Mobility, Group Exercise/Act as Ind, UE Funct Exercise/Act Treatment Duration: May 29, 2017 Frequency: At least 5 of 7 days/Wk (IRF) Estimated Hrs Per Day: 1.5 hours per day Agreement: Yes Rehab Potential: Fair Time/GCodes Start Time: 08:00 Stop Time: 08:40 Total Time Billed (hr/min): 40 Billed Treatment Time 1 visit, ADLx3(40minutes) BRIGHT SANTIAGO OT May 21, 2017 09:53
--- NOTE | 2017-05-21 11:06 | Physical Therapy Daily Note ---
PT Daily Note-Current Subjective Pt sitting in recliner upon arrival. Pt agrees to PT for FIM scoring before discharge today. Pt reports feeling as though her blood sugar is a little low so Nurse took it & it was 95. Domenico crackers & peanut butter was ordered & given during tx. Pain Numeric Pain Scale: 5-Moderate Pain Location: Left Location Body Site: Knee Pain Description: Ache Mental Status Patient Orientation: Person, Place, Time, Situation Transfers Functional [place] Measure 0=Not Assessed/NA 4=Minimal Assistance 1=Total Assistance 5=Supervision or Setup 2=Maximal Assistance 6=Modified [place] 3=Moderate Assistance 7=Complete IndependenceIRFPAI Quality Coding Scale 6 Independent with activity with or without an assistive device 5 Patient requires set up or clean up by helper. Patient completes activity by themselves 4 Supervision or touching assist (CGA). [place] provide cues , steadying assist 3 The helper provides less than half the effort to complete the activity 2 The helper provides more than half the effort to complete the activity 1 Dependent. The helper does all the effort to complete an activity 7 Patient refused to complete or attempt activity 9 The patient did not perform the activity before the current illness or injury 88 Not attempted due to Medical conditions or safety concerns Transfers (B, C, W/C) (FIM): 6 Scootin Rollin Roll Left to Right (QC): 6 Supine to/from Sit: 6 Sit to/from Stand: 6 Sit to Lying (QC): 6 Sit to Stand (QC): 6 Chair/Hfy-vk-Fyqwy Xfer(QC): 6 Bed to/from Chair: 6 Car Transfer (QC): 6 Weight Bearing Right Lower Extremity: Right Full Weight Bearing Left Lower Extremity: Left Weight Bearing/Tolerated Gait Training Does the Patient Walk?: Yes Distance (FIM): 3=150 ft Distance: 6 Walk 10 feet (QC): 6 Walk 50 ft with 2 Turns(QC): 6 Walk 150 ft (QC): 6 Walking 10ft/uneven surface-QC: 6 Gait Level of Assist: 6 Gait Persons Needed: 1 Gait Assistive Device: FWW Pt walks with slight gimp due to discomfort with WBing on L knee. Wheelchair Training Does the Pt Use a Wheelchair?: No Stair Training Stair Training: Handrails/: 1 handrail (& FUEL OPERATOR) Stairs (FIM): 2 #of Steps: 1 1 Step (curb) (QC): 4 4 Steps (QC): 88 12 Steps (QC): 88 Stairs: Pattern: Step to Level of Assist: 4 Pt has discomfort with WBing on LLE. Balance Picking up an Object (QC): 88 Special Test Comments Pt is unsafe to perform at this time. Treatments Pt reports Blood Sugar seems low so had Nurse test and it was 95. Domenico crackers and peanut butter was ordered and pt ate during tx. Pt transfers at [facility] I using FWW as well as ambulates using FWW at [facility] I. Pt completes walking across varying surface of at least 10' and car transfer at [facility] I as well. Pt has difficulty with Wbing on LLE during stairs and only able to complete 1 stair using 1 handrail & FUEL OPERATOR. Pt returns to room at end of tx to complete bed mobility at [facility] I and rest in bed. Assessment Current Status: Good Progress Pt has improved with transfers and mobility although pain in L knee still limits especially with stairs. PT Short Term Goals Short Term Goals Time Frame: May 15, 2017 Gait (FIM): 5 Gait Distance Comment: 200' Gait Level of Assist: 5 PT Senior Living Goals Regional Climate Change Analyst Goals PT Regional Climate Change Analyst Goals Time Frame: May 29, 2017 Transfers (B,C,W/C) (FIM): 5 Sit to Lying (QC): 4 Lying-Sitting on Side/Bed(QC): 4 Sit to Stand (QC): 4 Rollin Roll Left to Right (QC): 4 Chair/Ark-rs-Gruvf Xfer(QC): 4 Car Transfer (QC): 4 Gait (FIM): 5 Distance: 300' Walk 10 feet (QC): 4 Walk 10ft-Uneven Surface(QC): 4 Walk 50ft with 2 Turns (QC): 4 Walk 150 ft (QC): 4 Gait Level of Assist: 5 Gait Assistive Device: FWW Stairs (FIM): 2 # of Steps: 4 1 Step (curb) (QC): 4 Stairs Level Of Assist: 4 (CGA) PT Plan Problem List Problem List: Activity Tolerance Treatment/Plan Treatment Plan: Continue Plan of Care Treatment Plan: Bed Mobility, Education, Functional Activity Issac, Functional Strength, Group Therapy, Gait, Safety, Therapeutic Exercise, Transfers Treatment Duration: May 29, 2017 Frequency: At least 5 of 7 days/Wk (IRF) Estimated Hrs Per Day: 1.5 hours per day Patient and/or Family Agrees t: Yes Safety Risks/Education Patient Education: Gait Training, Transfer Techniques, Steps, Correct Positioning, Safety Issues Teaching Recipient: Patient Teaching Methods: Discussion Response to Teaching: Verbalize Understanding Time/GCodes Time In: 1000 Time Out: 1045 Total Billed Treatment Time: 45 Total Billed Treatment 1, GT (15m) & FA x2 (30m) RON CHANEL PTA May 21, 2017 11:06
--- NOTE | 2017-05-21 11:42 | Therapy Team Discharge Summary ---
Therapy Discharge Summary Discharge Recommendations Date of Discharge Therapy D/C Recommendations: Home w/ Family Support Occupational Therapy Pt admitted to ARU following acute hospitalization for left hip fracture. On admission pt required max assist for toileting and LE dressing, mod assist for bathing, and min assist for toilet transfer and UE dressing. Skilled OT intervention focused on ADL training, transfers, strengthening, adaptive equipment training, and home safety education. Pt made good progress with therapy and by discharge is completing eating, grooming, UE dressing, and toilet transfer with modified independence; bathing, LE dressing, toileting, and shower transfer with set up/SBA. Pt met all LTG except toileting. Pt has hip kit and toilet riser, and states she has as bench in her shower at home. Pt is to d/c home today. D/C ARU OT at this time. PT Shelter Goals Quality Auditor Goals PT Quality Auditor Goals Time Frame: May 29, 2017 Transfers (B,C,W/C) (FIM): 5 Roll Left to Right (QC): 4 Sit to Lying (QC): 4 Lying-Sitting on Side/Bed(QC): 4 Sit to Stand (QC): 4 Chair/Pej-un-Sksbm Xfer(QC): 4 Car Transfer (QC): 4 Gait (FIM): 5 Distance: 300' Walk 10 feet (QC): 4 Walk 10ft-Uneven Surface(QC): 4 Walk 50ft with 2 Turns (QC): 4 Walk 150 ft (QC): 4 Gait Level of Assist: 5 Gait Assistive Device: FWW Stairs (FIM): 2 # of Steps: 4 1 Step (curb) (QC): 4 Stairs Level Of Assist: 4 (CGA) OT Quality Auditor Goals Quality Auditor Goals Time Frame: May 29, 2017 Eating (FIM): 6 (met 05/21/17) Eating (QC): 6 (6-MET) Oral Hygiene (QC): 6 (6-MET) Grooming(FIM): 6 (met 05/21/17) Bathing(FIM): 5 (met 05/21/17) Shower/Bathe Self (QC): 5 (5-MET) Upper Body Dressing(FIM): 6 (met 05/21/17) Upper Body Dressing (QC): 6 (6-MET) Lower Body Dressing(FIM): 5 (met 05/21/17) Lower Body Dressing (QC): 5 (5-MET) On/Off Footwear (QC): 5 (5-MET) Toileting(FIM): 6 (not met) Toileting Hygiene (QC): 6 (5-not met) Toilet/Commode Transfer(FIM): 6 (met 05/21/17) Toilet/Commode Transfer (QC): 6 (6-MET) Shower Transfer(FIM): 5 (met 05/21/17) Additional Goals: 1-Demonstrate ADL Tasks, 2-Verbalize Understanding, 3- ImproveStrength/Issac 1=Demonstrate adherence to instructed precautions during ADL tasks. 2=Patient will verbalize/demonstrate understanding of assistive devices/ modifications for ADL. 3=Patient will improve strength/tolerance for activity to enable patient to perform ADL's. BRIGHT SANTIAGO OT May 21, 2017 11:42
[2017-05-21 14:10] VITALS: BP 157/71
--- NOTE | 2017-05-21 15:35 | Therapy Team Discharge Summary ---
Therapy Discharge Summary Discharge Recommendations Date of Discharge 05/21/2017 Therapy D/C Recommendations: Home w/ Family Support Physical Therapy This patient has been seen on ARU post fall with hip fracture. Her PLOF was that she was indep with all mobility. Upon admit to ARU, she required mod assist with transfers, min assist with gait, up/down 1 step. Treatment consisted of functional gait and transfers, strengthening, safety, balance and education. Upon DC, she is mod indep with transfers and gait, was able to go up /down 1 curb step. She has made good progress and achieved goals to a satisfactory level. [facility] is to follow upon DC. PT Alf Goals Ultrasound Specialist Goals PT Alf Goals Time Frame: May 29, 2017 Transfers (B,C,W/C) (FIM): 5 (exceeded) Roll Left to Right (QC): 4 (exceeded) Sit to Lying (QC): 4 (exceeded) Lying-Sitting on Side/Bed(QC): 4 (xceeded) Sit to Stand (QC): 4 (xceeded) Chair/Erx-gb-Jtnoj Xfer(QC): 4 (xceeded) Car Transfer (QC): 4 (xceeded) Gait (FIM): 5 (exceeded) Distance: 300' Walk 10 feet (QC): 4 (exceeded) Walk 10ft-Uneven Surface(QC): 4 (exceeded) Walk 50ft with 2 Turns (QC): 4 (exceeded) Walk 150 ft (QC): 4 (exceeded) Gait Level of Assist: 5 Gait Assistive Device: FWW Stairs (FIM): 2 (met) # of Steps: 4 1 Step (curb) (QC): 4 Stairs Level Of Assist: 4 (CGA) OT Ultrasound Specialist Goals Ultrasound Specialist Goals Time Frame: May 29, 2017 Eating (FIM): 6 (met 05/21/17) Eating (QC): 6 (6-MET) Oral Hygiene (QC): 6 (6-MET) Grooming(FIM): 6 (met 05/21/17) Bathing(FIM): 5 (met 05/21/17) Shower/Bathe Self (QC): 5 (5-MET) Upper Body Dressing(FIM): 6 (met 05/21/17) Upper Body Dressing (QC): 6 (6-MET) Lower Body Dressing(FIM): 5 (met 05/21/17) Lower Body Dressing (QC): 5 (5-MET) On/Off Footwear (QC): 5 (5-MET) Toileting(FIM): 6 (not met) Toileting Hygiene (QC): 6 (5-not met) Toilet/Commode Transfer(FIM): 6 (met 05/21/17) Toilet/Commode Transfer (QC): 6 (6-MET) Shower Transfer(FIM): 5 (met 05/21/17) Additional Goals: 1-Demonstrate ADL Tasks, 2-Verbalize Understanding, 3- ImproveStrength/Issac 1=Demonstrate adherence to instructed precautions during ADL tasks. 2=Patient will verbalize/demonstrate understanding of assistive devices/ modifications for ADL. 3=Patient will improve strength/tolerance for activity to enable patient to perform ADL's. LAYA CHRISTINE PT May 21, 2017 15:35
--- NOTE | 2017-05-21 19:21 | PM & R (SOAP) Progress Note ---
Subjective Time Seen by Provider: 12:00 Subjective/Events-last exam Patient developed UTI over weekend Hospitalist started Antibiotic Discharge to home with [facility] and her daughter remained for today Objective Exam Last Set of Vital Signs Vital Signs Date Time Temp Pulse Resp B/P (MAP) Pulse Ox O2 Delivery O2 Flow Rate FiO2 05/21/17 14:10 95 20 157/71 98 Room Air 05/21/17 05:11 96.7 Capillary Refill : Less Than 3 Seconds I&O Intake and Output 05/21/17 00:00 Intake Total 1100 ml Balance 1100 ml Intake Oral 1100 ml # Voids 17 # Bowel Movements 3 General: Alert, Oriented X3, Cooperative, No Acute Distress HEENT: Atraumatic, PERRLA, EOMI, Mucous Memb Moist/[place] Neck: Supple, No JVD Lungs: Clear to Auscultation Heart: Regular Rate Abdomen: Normal Bowel Sounds, Soft, No Tenderness Extremities: Other (trace edema) Neuro: Other (weakness at hip s/p repair) Results Lab Laboratory Tests 05/18/17 20:25: Glucometer 202H 05/19/17 04:46: Glucometer 199H 05/19/17 06:10: Prothrombin Time 24.7H, INR Comment 2.2H 05/19/17 11:13: Glucometer 121H 05/19/17 15:57: Glucometer 181H 05/19/17 19:25: Urine Color YELLOW, Urine Clarity VERY CLOUDYH, Urine pH 6, Urine Specific [place] 1.015L, Urine Protein 2+H, Urine Glucose (UA) 3+H, Urine Ketones 1+H, Urine Nitrite POSITIVEH, Urine Bilirubin NEGATIVE, Urine Urobilinogen NORMAL, Urine Leukocyte Esterase 3+H, Urine RBC (Auto) 2+H, Urine RBC 0-2, Urine WBC 50- 100H, Urine Crystals NONE, Urine Bacteria LARGEH, Urine Casts NONE, Urine Mucus NEGATIVE, Urine Culture Indicated NO 05/19/17 19:48: Glucometer 284H 05/20/17 04:28: Glucometer 203H 05/20/17 06:48: White Blood Count 5.6, Red Blood Count 3.56L, Hemoglobin 10.3L, Hematocrit 32L, Mean Corpuscular Volume 90, Mean Corpuscular Hemoglobin 29, Mean Corpuscular Hemoglobin Concent 32, Red Cell Distribution Width 13.5, Platelet Count 458H, Mean Platelet Volume 9.7, Neutrophils (%) (Auto) 66, Lymphocytes (%) (Auto) 21, Monocytes (%) (Auto) 11, Eosinophils (%) (Auto) 2, Basophils (%) (Auto) 1, Neutrophils # (Auto) 3.7, Lymphocytes # (Auto) 1.2, Monocytes # (Auto) 0.6, Eosinophils # (Auto) 0.1, Basophils # (Auto) 0.0, Prothrombin Time 26.3H, INR Comment 2.4H 05/20/17 06:49: Sodium Level 138, Potassium Level 3.8, Chloride Level 106, Carbon Dioxide Level 22, Anion Gap 10, Blood Urea Nitrogen 18, Creatinine 1.29, Estimat Glomerular Filtration Rate 41, BUN/Creatinine Ratio 14, Glucose Level 205H, Calcium Level 8.8, Total Bilirubin 0.7, Aspartate Amino Transf (AST/SGOT) 19, Alanine Aminotransferase (ALT/SGPT) 13, Alkaline Phosphatase 142H, Total Protein 6.5, Albumin 3.3 05/20/17 10:46: Glucometer 116H 05/20/17 16:08: Glucometer 228H 05/20/17 20:14: Glucometer 286H 05/21/17 05:23: Glucometer 181H 05/21/17 10:16: Glucometer 95 Microbiology 05/19/17 Urine Culture - Final, Complete Escherichia coli Assessment/Plan Assessment Left intertrochanteric hip fracture s/p fal s/p ORIF Chronic coumadin therapy INR elevated coumadin on hold HTN on home meds controlled DM Meds adjusted by PCP GERD on protonix Memory loss with hx of lacunar strokes Acute on chronic anemia from recent surgery s/p transfusion DJD left knee Voltaran gel Diarrhea improved with meds UTI antibiotic ordered Plan Discharge today to home with C and Family Current meds reviewed Patient will have f/u as an outpatient with PCP and Orthopedics See orders JAREN ADDISON MD May 21, 2017 19:21
== END 2017-05-21 14:10 | disposition home health service (06) | DRG 560 ==
PROVIDERS: ADMIT Physical Medicine & Rehabilitation; ATTEND Physical Medicine & Rehabilitation
DX: S72.142D Displaced intertrochanteric fracture of left femur, subsequent encounter for closed fracture with routine healing (principal); M25.551 Pain in right hip; M17.12 Unilateral primary osteoarthritis, left knee; R41.3 Other amnesia; I10 Essential (primary) hypertension; N39.0 Urinary tract infection, site not specified; E11.9 Type 2 diabetes mellitus without complications; K21.9 Gastro-esophageal reflux disease without esophagitis; Z66 Do not resuscitate; D64.9 Anemia, unspecified; R19.7 Diarrhea, unspecified; B96.20 Unspecified Escherichia coli [E. coli] as the cause of diseases classified elsewhere; Z79.4 Long term (current) use of insulin; Z79.01 Long term (current) use of anticoagulants; W19.XXXD Unspecified fall, subsequent encounter; Y92.002 Bathroom of unspecified non-institutional (private) residence as the place of occurrence of the external cause
CPT/HCPCS: 36415; 73562; 80053; 81000; 82962; 85025; 85610; 87088; 87186

== ENCOUNTER 2017-05-28 13:56 | Emergency (ER) | payer MEDICARE, MEDICAID ==
[~2017-05-28] VITALS: Ht 160 cm; Wt 90.7 kg
[~2017-05-28 13:56] MED LIST changes: +ACET-93 PO; +ACID1TAB PO; +DICL100G18 TOP; +DONE5TAB8 PO; +HYDR12.5 PO; +INSU100V16 SC; +INSU100V5 SQ; +LOSA50TA36 PO; +MICO90PO TOP
[2017-05-28] MEDS ORDERED: NS IV 1000 ML 1,000 ML IV ONE ×2 (14:04→15:35)
[2017-05-28 15:00] LABS: BASOPHILS # (AUTO) 0.1 10^3/uL (0.0-0.1); BASOPHILS % (AUTO) 1 % (0-10); EOSINOPHILS % (AUTO) 0 % (0-10); HEMATOCRIT 36 % (35-52); HEMOGLOBIN 11.8 G/DL (11.5-16.0); LYMPHOCYTES # (AUTO) 0.9 X 10^3 (1.0-4.0); LYMPHOCYTES % (AUTO) 8 % (12-44); MEAN CORPUSCULAR HEMOGLOBIN 29 PG (25-34); MEAN CORPUSCULAR HGB CONC 32 G/DL (32-36); MEAN CORPUSCULAR VOLUME 88 FL (80-99); MEAN PLATELET VOLUME 10.1 FL (7.4-10.4); MONOCYTES # (AUTO) 0.7 X 10^3 (0.0-1.0); MONOCYTES % (AUTO) 6 % (0-12); NEUTROPHILS # (AUTO) 9.8 X 10^3 (1.8-7.8); NEUTROPHILS % (AUTO) 85 % (42-75); PLATELET COUNT 439 10^3/uL (130-400); RED BLOOD COUNT 4.12 10^6/uL (4.35-5.85); RED CELL DISTRIBUTION WIDTH 13.9 % (10.0-14.5); WHITE BLOOD COUNT 11.5 10^3/uL (4.3-11.0)
[2017-05-28 15:16] LABS: ABG BASE EXCESS -11.8 MMOL/L (-2.5-2.5); ABG OXYGEN SATURATION 100 % (94-100); ABG PCO2 26 MMHG (35-45); ABG PO2 154 MMHG (79-93)
[2017-05-28 15:17] LABS: ABG PH 7.33 (7.37-7.43)
[2017-05-28 15:18] LABS: ALLENS TEST POSITIVE; INSPIRED O2 4.5; PATIENT TEMP 97.7; VENTILATOR NO
[2017-05-28 15:22] LABS: PROTHROMBIN TIME PATIENT 46.9 SEC (12.2-14.7)
[2017-05-28 15:23] LABS: INR 5.2 (0.8-1.4)
[2017-05-28 15:27] LABS: ALBUMIN 3.7 GM/DL (3.2-4.5); BILIRUBIN,TOTAL 0.3 MG/DL (0.1-1.0); CALCIUM 9.6 MG/DL (8.5-10.1); CREATININE SERUM 1.86 MG/DL (0.60-1.30); MAGNESIUM 1.6 MG/DL (1.8-2.4); POTASSIUM 3.8 MMOL/L (3.6-5.0); TOTAL PROTEIN 7.4 GM/DL (6.4-8.2)
[2017-05-28 15:48] LABS: TSH (THYROID ANALYZER) 0.66 UIU/ML (0.35-4.94)
[2017-05-28 17:20] VITALS: BP 162/77
[2017-05-28] MEDS ORDERED: inSUlin (REGULAR) HUMAN 1 UNIT/0.01 ML (CHARGE PER UNIT) SC SCH (18:40)
[2017-05-28] MEDS ORDERED: CATHETER FLUSH 10 ML SYR IV PRN (18:45)
[2017-05-28] MEDS ORDERED: NS IV 1000 ML 1,000 ML IV SCH (18:45)
--- NOTE | 2017-05-28 19:31 | ED General ---
General Chief Complaint: Glucose Problems Stated Complaint: WEAKNESS/DIZZINESS Nursing Triage Note: c/o generalized weakness. Home Health reports high blood sugars. [facility] reports tachycardia 130s. Awake, alert, but weak on ER arrival. Nursing Sepsis Screen: No Definite Risk Source of Information: Patient Exam Limitations: No Limitations History of Present Illness Date Seen by Provider: May 28, 2017 Time Seen by Provider: 13:58 Initial Comments PT ARRIVES VIA [facility] FROM HOME PT C/O BEING VERY DIZZY AND WEAK SINCE WAKING THIS MORNING BLOOD SUGAR READINGS HAVE BEEN HIGH ALL DAY--WAS > 500 ON WAKING PT GAVE HERSELF 15 UNITS OF NOVOLOG AT 1300 ACCUCHECK WAS 247 FOR EMS EMS REPORT THAT PT HAS BEEN HYPOTENSIVE IN 90'S AND TACHYCARDIC AND WAS IN A FIB WITH RVR OF RATE 147, BUT CONVERTED TO NSR WITHOUT TREATMENT, OTHER THAN GIVING SALINE--PT WITH HISTORY OF ATRIAL FIBRILLATION AND IS ON COUMADIN PT STATES SHE NORMALLY CHECKS HER BLOOD SUGAR AT LEAST 4 TIMES A DAY, BUT STATES SHE CANNOT REMEMBER WHAT ANY OF HER BLOOD SUGAR READINGS WERE YESTERDAY, BUT STATES THEY WERE NOT HIGH. 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 PT STATES SHE HAS NOT EATEN TODAY NO PAIN ANYWHERE NO HEADACHE NO NAUSEA/VOMITING NO SHORTNESS OF BREATH NO URINARY SYMPTOMS C/O VERY DRY MOUTH PT WAS ADMITTED HERE 05/01-05/21/17 FOR LEFT HIP FRACTURE, SENT BACK TO HOME, LIVES ALONE STILL HAVING A LITTLE DIFFICULTY GETTING AROUND PCP: DR. BRUCE Allergies and Home Medications Allergies Coded Allergies: Penicillins (Verified Allergy, Intermediate, HIVES, 05/28/17) hydrocodone (Verified Adverse Reaction, Unknown, VOMITING, 05/28/17) Home Medications Acetaminophen 500 Mg Tablet, 500-1,000 MG PO Q6H PRN for PAIN-MILD, (Reported) TAKES 1-2 OF A (500 MG) TABLET Alendronate Sodium 70 Mg Tablet, 70 MG PO Sa, (Reported) Atorvastatin Calcium 10 Mg Tablet, 10 MG PO HS, (Reported) Calcium Carbonate/Vitamin D3 1 Each Tablet, 1 TAB PO BID, (Reported) Carvedilol 25 Mg Tablet, 25 MG PO BID, (Reported) Citalopram Hydrobromide 20 Mg Tablet, 20 MG PO HS, (Reported) Cyanocobalamin (Vitamin B-12) 1,000 Mcg Tablet, 1,000 MCG PO DAILY, (Reported) Diclofenac Sodium 100 Gm Gel..gram., 0 GM TOP QID Prescribed by: JAREN ADDISON on 05/18/171322 Donepezil HCl 5 Mg Tablet, 5 MG PO HS Prescribed by: JAREN ADDISON on 05/18/171322 Hydrochlorothiazide 12.5 Mg Capsule, 12.5 MG PO DAILY@0900 Prescribed by: JAREN ADDISON on 05/18/171322 Insulin Aspart 100 Unit/1 Ml Susp, 6 UNIT SC AC Prescribed by: JAREN ADDISON on 05/18/171322 Insulin Determir 1,000 Units/10 Ml Soln, 20 UNIT SQ HS Prescribed by: JAREN ADDISON on 05/18/171322 L. Acidophilus/Bulgaricus 1 Each Tablet, 1 TAB.CHEW PO AC Prescribed by: JAREN ADDISON on 05/18/171322 Losartan Potassium 50 Mg Tablet, 100 MG PO DAILY Prescribed by: JAREN ADDISON on 05/18/171322 Metformin HCl 1,000 Mg Tablet, 1,000 MG PO BID WITH MEALS, (Reported) Miconazole Nitrate 90 Gm Powder, 0 GM TOP BID Prescribed by: JAREN ADDISON on 05/18/171322 Lucan-3/Dha/Epa/Fish Oil 1 Each Capsule, 1,000 MG PO BID, (Reported) Pantoprazole Sodium 40 Mg Tablet.dr, 40 MG PO DAILY, (Reported) Tramadol HCl 50 Mg Tablet, 50 MG PO TID PRN for PAIN-MODERATE, (Reported) Vit C/Vit E/Lutein/Min/Lucan-3 1 Each Capsule, 1 CAP PO DAILY, (Reported) Warfarin Sodium 4 Mg Tablet, 4 MG PO HS, (Reported) Patient Home Medication List Home Medication List Reviewed: Yes Constitutional: see HPI, No chills, No diaphoresis, dizziness, No fever, malaise EENTM: no symptoms reported, No blurred vision Respiratory: no symptoms reported Cardiovascular: no symptoms reported Gastrointestinal: no symptoms reported Genitourinary: no symptoms reported Musculoskeletal: no symptoms reported Skin: no symptoms reported Psychiatric/Neurological: See HPI (GENERALIZED WEAKNESS), Denies Headache, Denies Numbness, Denies Paresthesia, Denies Seizure, Denies Tingling, Denies Tremors Hematologic/Lymphatic: No Symptoms Reported Immunological/Allergic: no symptoms reported Past Ffsjtwz-Jecxnr-Ohijwy Hx Patient Social History Alcohol Use: Denies Use Recreational Drug Use: No Smoking Status: Unknown if Ever Smoked 2nd Hand Smoke Exposure: No Recent Foreign Travel: No Contact w/Someone Who Travel: No Recent Infectious Disease Expo: No Recent Hopitalizations: No Immunizations Up To Date Date of Pneumonia Vaccine: Mar 17, 2009 Date of Influenza Vaccine: Mar 02, 2017 Seasonal Allergies Seasonal Allergies: No Surgeries History of Surgeries: Yes Surgeries: Bladder Surgery, Section, Gallbladder, Hysterectomy Respiratory History of Respiratory Disorde: No Cardiovascular History of Cardiac Disorders: Yes Cardiac Disorders: Atrial Fibrillation, Deep Vein Thrombosis, Hypertension Neurological History of Neurological Disord: Yes (1997 ) Neurological Disorders: Stroke Reproductive System Hx Reproductive Disorders: No Sexually Transmitted Disease: No Genitourinary History of Genitourinary Disor: Yes Genitourinary Disorders: UTI-Chronic Gastrointestinal History of Gastrointestinal Di: No Musculoskeletal History of Musculoskeletal Dis: Yes (OSTEOPENIA) Endocrine History of Endocrine Disorders: Yes Endocrine Disorders: Diabetes, Insulin dep HEENT History of HEENT Disorders: No Cancer History of Cancer: Yes (1975-) Cancer: Cervical Did You Recieve Any Treatments: Yes Type of Tx Receive: Surgical Intervention Psychosocial History of Psychiatric Problem: No Integumentary History of Skin or Integumenta: No Blood Transfusions History of Blood Disorders: 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) Family Medical History Significant Family History: No Pertinent Family Hx Family Medial History: Asthma 19 FATHER Diabetes mellitus 19 FATHER 19 MOTHER Hypertension 19 FATHER 19 MOTHER Physical Exam Vital Signs Vital Signs - First Documented 05/28/17 05/28/17 13:56 17:20 Temp 96.8 Pulse 110 Resp 20 B/P (MAP) 162/77 Pulse Ox 95 O2 Delivery Room Air Capillary Refill : Less Than 3 Seconds General Appearance: No Apparent Distress, WD/WN, Other (MILDLY LETHARGIC) HEENT: PERRL/EOMI, Other (ORAL MUCOSA VERY DRY) Neck: Normal Inspection Respiratory: Normal Breath Sounds, No Accessory Muscle Use, No Respiratory Distress Cardiovascular: Regular Rate, Rhythm, No Edema, No Murmur, Normal Peripheral Pulses Gastrointestinal: Non Tender, Soft Back: No CVA Tenderness Extremity: Normal Capillary Refill, No Pedal Edema Neurologic/Psychiatric: Alert, Oriented x3, No Motor/Sensory Deficits, 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 Norm as Tested Skin: Normal Color Progress/Results/Core Measures Suspected Sepsis Recent Fever Within 48 Hours: No Infection Criteria Present: Suspected New Infection New/Unexplained Altered Menta: No Sepsis Screen: No Definite Risk Sepsis Diagnosis: SIRS Temperature:96.8 Pulse: 90 Respiratory Rate: 18 Laboratory Tests 05/28/17 14:50: White Blood Count 11.5H Blood Pressure 162 /77 Mean: Laboratory Tests 05/28/17 14:50: Creatinine 1.86H, INR Comment 5.2*H, Platelet Count 439H, Total Bilirubin 0.3 Results/Orders Lab Results Laboratory Tests Test 05/28/17 14:50 05/28/17 15:06 Range/Units White Blood Count 11.5 H 4.3-11.0 10^3/uL Red Blood Count 4.12 L 4.35-5.85 10^6/uL Hemoglobin 11.8 11.5-16.0 G/DL Hematocrit 36 35-52 % Mean Corpuscular Volume 88 80-99 FL Mean Corpuscular Hemoglobin 29 25-34 PG Mean Corpuscular Hemoglobin Concent 32 32-36 G/DL Red Cell Distribution Width 13.9 10.0-14.5 % Platelet Count 439 H 130-400 10^3/uL Mean Platelet Volume 10.1 7.4-10.4 FL Neutrophils (%) (Auto) 85 H 42-75 % Lymphocytes (%) (Auto) 8 L 12-44 % Monocytes (%) (Auto) 6 0-12 % Eosinophils (%) (Auto) 0 0-10 % Basophils (%) (Auto) 1 0-10 % Neutrophils # (Auto) 9.8 H 1.8-7.8 X 10^3 Lymphocytes # (Auto) 0.9 L 1.0-4.0 X 10^3 Monocytes # (Auto) 0.7 0.0-1.0 X 10^3 Eosinophils # (Auto) 0.0 0.0-0.3 10^3/uL Basophils # (Auto) 0.1 0.0-0.1 10^3/uL Prothrombin Time 46.9 *H 12.2-14.7 SEC INR Comment 5.2 *H 0.8-1.4 Activated Partial Thromboplast Time 54 H 24-35 SEC Sodium Level 138 135-145 MMOL/L Potassium Level 3.8 3.6-5.0 MMOL/L Chloride Level 106 98-107 MMOL/L Carbon Dioxide Level 15 L 21-32 MMOL/L Anion Gap 17 H 5-14 MMOL/L Blood Urea Nitrogen 28 H 7-18 MG/DL Creatinine 1.86 H 0.60-1.30 MG/DL Estimat Glomerular Filtration Rate 27 BUN/Creatinine Ratio 15 Glucose Level 164 H 70-105 MG/DL Calcium Level 9.6 8.5-10.1 MG/DL Magnesium Level 1.6 L 1.8-2.4 MG/DL Total Bilirubin 0.3 0.1-1.0 MG/DL Aspartate Amino Transf (AST/SGOT) 15 5-34 U/L Alanine Aminotransferase (ALT/SGPT) 16 0-55 U/L Alkaline Phosphatase 202 H 40-136 U/L Total Protein 7.4 6.4-8.2 GM/DL Albumin 3.7 3.2-4.5 GM/DL Amylase Level 55 25-125 U/L Lipase 67 8-78 U/L TSH Webster Testing 0.66 0.35-4.94 UIU/ML Blood Gas Puncture Site R RADIAL Blood Gas Patient Temperature 97.7 Arterial Blood pH 7.33 *L 7.37-7.43 Arterial Blood Partial Pressure CO2 26 L 35-45 MMHG Arterial Blood Partial Pressure O2 154 H 79-93 MMHG Arterial Blood HCO3 13 *L 23-27 MMOL/L Arterial Blood Total CO2 14.0 L 21.0-31.0 MMOL/L Arterial Blood Oxygen Saturation 100 94-100 % Arterial Blood Base Excess -11.8 L -2.5-2.5 MMOL/L Garrett Test POSITIVE Blood Gas Ventilator Setting NO Blood Gas Inspired Oxygen 4.5 My Orders Orders - WINSTON,LEAH K DO Accucheck Stat ONCE (05/28/17 14:04) Saline Lock/Iv-Start (05/28/17 14:04) Ekg Tracing (05/28/17 14:04) Monitor-Rhythm Ecg Trace Only (05/28/17 14:04) Amylase (05/28/17 14:04) Cbc With Automated Diff (05/28/17 14:04) Comprehensive Metabolic Panel (05/28/17 14:04) Lipase (05/28/17 14:04) Magnesium (05/28/17 14:04) Thyroid Analyzer (05/28/17 14:04) Ua Culture If Indicated (05/28/17 14:04) Arterial Blood Gas (05/28/17 15:06) Saline Lock/Iv-Start (05/28/17 14:04) Ns Iv 1000 Ml (Sodium Chloride 0.9%) (05/28/17 14:04) Protime With Inr (05/28/17 14:48) Partial Thromboplastin Time (05/28/17 14:48) Saline Lock/Iv-Start (05/28/17 15:35) Ns Iv 1000 Ml (Sodium Chloride 0.9%) (05/28/17 15:35) Medications Given in ED Current Medications Medications Dose Ordered Sig/Jean Claude Route Start Time Stop Time Status Last Admin Dose Admin Sodium Chloride 1,000 ml @ 0 mls/hr Q0M ONCE IV 05/28/17 14:04 05/28/17 14:06 DC 05/28/17 15:18 1,000 MLS/HR Sodium Chloride 1,000 ml @ 0 mls/hr Q0M ONCE IV 05/28/17 15:35 05/28/17 15:41 DC 05/28/17 17:15 1,000 MLS/HR Vital Signs/I&O Vital Sign - Last 12Hours 05/28/17 05/28/17 13:56 17:20 Temp 96.8 96.8 Pulse 110 90 Resp 20 18 B/P (MAP) 162/77 Pulse Ox 95 95 O2 Delivery Room Air Capillary Refill : Less Than 3 Seconds Progress Note : Progress Note UNEVENTFUL ER STAY VITALS REMAINED STABLE ECG Initial ECG Impression Date: May 28, 2017 Initial ECG Impression Time: 14:31 Initial ECG Rate: 106 Initial ECG Rhythm: S.Tach Departure Communication (Admissions) Progress Notes 3001--SPOKE WITH DR. WATTERS, COVERING FOR DR. BRUCE, ACCEPTS PT FOR ADMIT TO SWING BED. Impression Impression: Primary Impression: DKA (diabetic ketoacidoses) Additional Impressions: Dehydration Acute renal failure RECENT LEFT HIP FRACTURE Hypomagnesemia Elevated protime Chronic anticoagulation ATRIAL FIB WITH RVR BY HISTORY Disposition: ADMITTED INPATIENT Condition: Improved Admissions Decision to Admit Reason: Admit from ER (General) Decision to Admit/Date: May 28, 2017 Time/Decision to Admit Time: 15:45 Departure-Patient Inst. Referrals: SHAKEEL BRUCE DO (PCP) Primary Care Physician LEAH MONTERO DO May 28, 2017 19:31
[2017-05-29] MEDS ORDERED: HYDR12.5 PO (09:44)
[2017-05-29] MEDS ORDERED: DONE5TAB30 PO (09:44)
[2017-05-29] MEDS ORDERED: DICL100G31 TOP (09:44)
[2017-05-29] MEDS ORDERED: INSU100V6 SC (09:54)
[2017-05-29] MEDS ORDERED: LOSA50TA36 PO (09:54)
[2017-05-29] MEDS ORDERED: INSU100V SC (09:54)
== END 2017-05-28 17:20 | disposition other institution (70) ==
LOC: EDUNIT# 13:56 → ER 13:57
DX: E11.10 Type 2 diabetes mellitus with ketoacidosis without coma (principal); E86.0 Dehydration; E83.42 Hypomagnesemia; R79.1 Abnormal coagulation profile; N17.9 Acute kidney failure, unspecified; I48.0 Paroxysmal atrial fibrillation; E11.9 Type 2 diabetes mellitus without complications; I10 Essential (primary) hypertension; Z85.41 Personal history of malignant neoplasm of cervix uteri; Z86.73 Personal history of transient ischemic attack (TIA), and cerebral infarction without residual deficits; Z86.718 Personal history of other venous thrombosis and embolism; Z87.59 Personal history of other complications of pregnancy, childbirth and the puerperium; Z90.710 Acquired absence of both cervix and uterus; Z87.81 Personal history of (healed) traumatic fracture; Z79.4 Long term (current) use of insulin; Z79.01 Long term (current) use of anticoagulants; Z88.0 Allergy status to penicillin; Z88.6 Allergy status to analgesic agent
CPT/HCPCS: 36415; 80053; 82150; 82805; 83690; 83735; 84443; 85025; 85610; 85730; 93005; 93041; 96360; 96361

== ENCOUNTER 2017-05-28 16:51 | Inpatient (IN) | payer MEDICARE, MEDICAID ==
[~2017-05-28] VITALS: Ht 160 cm; Wt 77.8 kg
[2017-05-28 17:30] VITALS: BP 164/84
[2017-05-28 18:35] VITALS: BP 144/79
[2017-05-28 19:35] VITALS: BP 154/83
[2017-05-28] MEDS ORDERED: CATHETER FLUSH 10 ML SYR IV PRN (20:15)
[2017-05-28 20:34] VITALS: BP 153/77
[2017-05-28] MEDS: inSUlin (REGULAR) HUMAN 1 UNIT/0.01 ML (CHARGE PER UNIT) SC SCH (21:36)
[2017-05-28 22:35] VITALS: BP 163/76
[2017-05-28] MEDS: NS IV 1000 ML 1,000 ML IV SCH (22:47)
[2017-05-28] MEDS: ACETAMINOPHEN 500 MG TAB (TYLENOL) PO PRN (23:40)
[2017-05-28] MEDS ORDERED: RX-TRAMADOL 50 MG (ULTRAM) TAB PPK#4 PO PRN (23:45)
[2017-05-29 00:51] VITALS: BP 169/74
[2017-05-29 01:07] LABS: BILIRUBIN,URINE NEGATIVE (NEGATIVE); COLOR,URINE YELLOW; GLUCOSE, URINE (UA) 3+ (NEGATIVE); KETONES,URINE 4+ (NEGATIVE); LEUKOCYTE ESTERASE ,URINE 3+ (NEGATIVE); NITRITE,URINE NEGATIVE (NEGATIVE); PH,URINE 6 (5-9); PROTEIN,URINE 2+ (NEGATIVE); UROBILINOGEN,URINE NORMAL (NORMAL)
[2017-05-29 01:14] LABS: CLARITY,URINE SLIGHTLY CLOUDY
[2017-05-29 01:16] LABS: BACTERIA,URINE FEW /HPF; WBC,URINE 25-50 /HPF
[2017-05-29 01:17] LABS: YEAST,URINE FEW /HPF
[2017-05-29] MEDS: NS IV 1000 ML 1,000 ML IV SCH ×3 (03:30→11:52)
[2017-05-29 05:00] VITALS: BP 192/80
[2017-05-29 05:15] VITALS: BP 188/75
[2017-05-29] MEDS: inSUlin (REGULAR) HUMAN 1 UNIT/0.01 ML (CHARGE PER UNIT) SC SCH ×4 (06:22→21:33)
[2017-05-29 06:35] LABS: BASOPHILS % (AUTO) 0 % (0-10); EOSINOPHILS # (AUTO) 0.2 10^3/uL (0.0-0.3); EOSINOPHILS % (AUTO) 2 % (0-10); HEMATOCRIT 31 % (35-52); HEMOGLOBIN 10.1 G/DL (11.5-16.0); LYMPHOCYTES # (AUTO) 1.3 X 10^3 (1.0-4.0); LYMPHOCYTES % (AUTO) 15 % (12-44); MEAN CORPUSCULAR HEMOGLOBIN 29 PG (25-34); MEAN CORPUSCULAR HGB CONC 33 G/DL (32-36); MEAN CORPUSCULAR VOLUME 89 FL (80-99); MEAN PLATELET VOLUME 9.9 FL (7.4-10.4); MONOCYTES # (AUTO) 0.5 X 10^3 (0.0-1.0); MONOCYTES % (AUTO) 6 % (0-12); NEUTROPHILS % (AUTO) 77 % (42-75); PLATELET COUNT 380 10^3/uL (130-400); RED BLOOD COUNT 3.49 10^6/uL (4.35-5.85); RED CELL DISTRIBUTION WIDTH 14.2 % (10.0-14.5); WHITE BLOOD COUNT 9.1 10^3/uL (4.3-11.0)
[2017-05-29 07:00] LABS: ALBUMIN 3.2 GM/DL (3.2-4.5); BILIRUBIN,TOTAL 0.3 MG/DL (0.1-1.0); CALCIUM 8.5 MG/DL (8.5-10.1); CREATININE SERUM 1.52 MG/DL (0.60-1.30); POTASSIUM 3.8 MMOL/L (3.6-5.0); TOTAL PROTEIN 6.1 GM/DL (6.4-8.2)
--- NOTE | 2017-05-29 09:37 | Physical Therapy Evaluation ---
PT Evaluation-General Medical Diagnosis Admission Date May 28, 2017 at 16:51 Medical Diagnosis: DKA/dehydration/ARF Onset Date: May 28, 2017 Therapy Diagnosis Therapy Diagnosis: generalized weakness/debility Height/Weight Height (Feet): 5 Height (Inches): 3.00 Weight (Pounds): 169 Weight (Ounces): 13.4 Precautions Precautions/Isolations: Fall Prevention, Standard Precautions Weight Bear Status Right Lower Extremity: Right Weight Bearing/Tolerated Left Lower Extremity: Left Weight Bearing/Tolerated Referral Physician: Hans Reason for Referral: Evaluation/Treatment Medical History Pertinent Medical History: Atrial Fib, CVA, DM, HTN Additional Medical History recent fall resulting in left hip fracture with repair and stay in ARU Current History EMS secondary to elevated blood sugar Reviewed History: Yes Prior/Core FIM Prior Level of Function Functional [place] Measure 0=Not Assessed/NA 4=Minimal Assistance 1=Total Assistance 5=Supervision or Setup 2=Maximal Assistance 6=Modified [place] 3=Moderate Assistance 7=Complete [place] Bed Mobility: 6 Transfers (B,C,W/C) (FIM): 6 Gait: 6 PT Evaluation-Current Subjective Patient is in bed, confused and incontinent BM. Pain Numeric Pain Scale: 0-No Pain Location: No Pain Reported Objective Patient Orientation: Confused Problem Solving: Poor Attachments: IV ROM/Strength ROM Lower Extremities bilateral LE WNL Strenght Lower Extremities right knee flexion/extension 4/5; DF/PF 4/5 left knee flexion/extension 4/5; DF/PF 4/5 Integumentary/Posture Integumentary refer to nursing notes/left hip incision is red and appears inflamed Bowel Incontinence: Yes Bladder Incontinence: Yes Posture WNL Neuromuscular (Tone, Coordination, Reflexes) grossly intact Sensory Vision: Wears Glasses Hearing: Functional Sensation Right Lower Extremit: Impaired Sensation Left Lower Extremity: Impaired Transfers Functional [place] Measure 0=Not Assessed/NA 4=Minimal Assistance 1=Total Assistance 5=Supervision or Setup 2=Maximal Assistance 6=Modified [place] 3=Moderate Assistance 7=Complete [place] Transfers (B, C, W/C) (FIM): 5 Scootin Rollin Supine to/from Sit: 5 Sit to/from Stand: 5 Sit to Lying (QC): 5 Lying to Sitting/Side of Bed(Q: 5 Sit to Stand (QC): 5 Chair/Ynk-pw-Strjf Xfer(QC): 5 Gait Does the Patient Walk?: Yes Mode of Locomotion: Walk Anticipated Mode of Locomotion: Walk Gait (FIM): 1 Distance (FIM): 1=up to 49 ft Distance: 10' x 2 Gait Level of Assist: 5 Gait Assistive Device: FWW Comments/Gait Description functional gait sequence Balance Sitting Static: Normal Sitting Dynamic: Normal Standing Static: Normal Standing Dynamic: Normal Treatment bilateral LE exercises in supine and sit 10 reps each AP, QS, HS, SLR, and seated LAQ Assessment/Needs 67 y.o .female with failed return to home after rehab for left hip fracture, will benefit from skilled PT to address functional strength and mobility to improve current LOF. From a PT standpoint, patient would benefit from LTCF. 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 Goals Time Frame: Jun 08, 2017 Transfers (B,C,W/C) (FIM): 6 Sit to Lying (QC): 6 Lying-Sitting on Side/Bed(QC): 6 Sit to Stand (QC): 6 Rollin Chair/Ztd-wu-Ljmcg Xfer(QC): 6 Does the Patient Walk: Yes Gait (FIM): 6 Gait distance (FIM): 3=150 ft Distance: 150' Walk 50ft with 2 Turns (QC): 6 Walk 150 ft (QC): 6 Gait Level of Assist: 6 Gait Assistive Device: FWW PT Plan Problem List Problem List: Activity Tolerance, Functional Strength, Balance, Gait, Transfer , Bed Mobility Treatment/Plan Treatment Plan: Continue Plan of Care Treatment Plan: Education, Functional Activity Issac, Functional Strength, Gait , Safety, Therapeutic Exercise Treatment Duration: Jun 08, 2017 Frequency: 6 times per week Estimated Hrs Per Day: .5 hour per day (or PRN) Patient and/or Family Agrees t: Yes Discharge Recommendations Therapy D/C Recommendations: Snf Placement, Shelter (TCU/NH) Time/GCodes Time In: 840 Time Out: 903 Total Billed Treatment Time: 23 Total Billed Treatment 1 visit EVModC 8 min EX 15 min CECILIA DE OLIVEIRA PT May 29, 2017 09:36
[2017-05-29] MEDS ORDERED: DICL100G31 TOP (09:44)
[2017-05-29] MEDS ORDERED: HYDR12.5 PO (09:44)
[2017-05-29] MEDS ORDERED: DONE5TAB30 PO (09:44)
[2017-05-29] MEDS ORDERED: INSU100V SC (09:54)
[2017-05-29] MEDS ORDERED: LOSA50TA36 PO (09:54)
[2017-05-29] MEDS ORDERED: INSU100V6 SC (09:54)
--- NOTE | 2017-05-29 09:58 | Occupational Therapy Eval ---
OT Evaluation-General/PLF Medical Diagnosis Admission Date May 28, 2017 at 16:51 Medical Diagnosis: DKA/dehydration/ARF Onset Date: May 28, 2017 Therapy Diagnosis Therapy Diagnosis: decreased self care skills Height/Weight Height (Feet): 5 Height (Inches): 3.00 Weight (Pounds): 169 Weight (Ounces): 13.4 Precautions Precautions/Isolations: Fall Prevention, Standard Precautions Safety Interventions: Bed Exit Alarm Referral Physician: Hans Medical History Pertinent Medical History: Atrial Fib, CVA, DM, HTN Additional Medical History left hip fracture with repair. Recently discharged from ARU Reviewed History: Yes Social History Home: Apartment Current Living Status: Alone ADL-Prior Level of Function ADL PLOF Comments Pt was recently discharged home from ARU following left hip fracture. Pt states she had minimal activity at home and was easily fatigued. Pt states she was getting herself dressed, toileting and fixing simple meals. Was using adaptive equipment for dressing. Family was checking in on her. Was not getting into shower secondary to fear of falling. DME/Equipment: Bath Bench, Reachers, Shower, Sock Aid, Toilet/Riser OT Current Status Subjective Pt sitting in chair, agrees to therapy. Pt states he has some pain in left knee and sore on her bottom, but does not rate. Pt states she will be going to SNF at d/c. Mental Status/Objective Patient Orientation: Person, Place Attachments: IV Current Glasses/Contacts: Yes Dentures/Partials: Yes Hand Dominance: Right Upper Extremity ROM Grossly WFL Upper Extremity Coordination Intact ADL-Treatment ADL-Current Pt sit to stand from chair with supervision. Pt incontinent of bowel. Transferred to toilet with CGA using FWW. Pt moves slowly and requires assist for hygiene. Transfer back to chair with FWW. Pt declined bathing or grooming at this time secondary to reports of fatigue. States she will complete later. Pt sitting in chair with needs met after session. Functional [place] Measure 0=Not Assessed/NA 4=Minimal Assistance 1=Total Assistance 5=Supervision or Setup 2=Maximal Assistance 6=Modified [place] 3=Moderate Assistance 7=Complete IndependenceIRFPAI Quality Coding Scale 6 Independent with activity with or without an assistive device 5 Patient requires set up or clean up by helper. Patient completes activity by themselves 4 Supervision or touching assist (CGA). Hooven provide cues , steadying assist 3 The helper provides less than half the effort to complete the activity 2 The helper provides more than half the effort to complete the activity 1 Dependent. The helper does all the effort to complete an activity 7 Patient refused to complete or attempt activity 9 The patient did not perform the activity before the current illness or injury 88 Not attempted due to Medical conditions or safety concerns Toileting (FIM): 2 Toileting Hygiene (QC): 2 Toilet/Commode Transfer (FIM): 4 Toilet Transfer (QC): 4 Education OT Patient Education: Rehab process Teaching Recipient: Patient Teaching Methods: Discussion Response to Teaching: Verbalize Understanding OT Short Term Goals Short Term Goals 1=Demonstrate adherence to instructed precautions during ADL tasks. 2=Patient will verbalize/demonstrate understanding of assistive devices/ modifications for ADL. 3=Patient will improve strength/tolerance for activity to enable patient to perform ADL's. OT Fpc Goals Press Cutter Goals Time Frame: Jun 12, 2017 Eating (FIM): 6 Eating (QC): 6 Groomin Oral Hygiene (QC): 6 Bathing(FIM): 5 Upper Body Dressing(FIM): 6 Lower Body Dressing(FIM): 5 Toileting(FIM): 6 Toileting Hygiene (QC): 6 Toilet/Commode Transfer(FIM): 6 Toilet/Commode Transfer (QC): 6 Shower Transfer(FIM): 5 Additional Goals: 1-Demonstrate ADL Tasks, 2-Verbalize Understanding, 3- ImproveStrength/Issac 1=Demonstrate adherence to instructed precautions during ADL tasks. 2=Patient will verbalize/demonstrate understanding of assistive devices/ modifications for ADL. 3=Patient will improve strength/tolerance for activity to enable patient to perform ADL's. OT Education/Plan Problem List/Assessment Assessment: Decreased Activ Tolerance, Decreased UE Strength, Dependent Transfers, Impaired I ADL's, Impaired Self-Care Skills Pt to benefit from skilled OT intervention for ADL training, transfers, strengthening, and safety education to increase level of independence and allow safe discharge plan. Discharge Recommendations Plan/Recommendations: Continue POC Treatment Plan/Plan of Care Treatment,Training & Education: Yes Patient would benefit from OT for education, treatment and training to promote independence in ADL's, mobility, safety and/or upper extremity function for ADL' s. Plan of Care: ADL Retraining, Functional Mobility, UE Funct Exercise/Act Treatment Duration: Jun 12, 2017 Frequency: 5 times per week Estimated Hrs Per Day: .25 hour per day Rehab Potential: Good Time/GCodes Start Time: 09:19 Stop Time: 09:44 Total Time Billed (hr/min): 25 Billed Treatment Time 1 visit, EVM(10minutes), ADL(15minutes) BRIGHT SANTIAGO OT May 29, 2017 09:58
[2017-05-29] MEDS ORDERED: CARVEDILOL 12.5 MG (COREG) TABLET PO NR (13:00)
[2017-05-29] MEDS ORDERED: TRIM/SULFAMETH 160/800 (SEPTRA DS) TAB PO NR (13:00)
[2017-05-29 13:53] VITALS: BP 146/42
[2017-05-29 14:06] LABS: CALCIUM 8.1 MG/DL (8.5-10.1); CREATININE SERUM 1.28 MG/DL (0.60-1.30); POTASSIUM 3.3 MMOL/L (3.6-5.0)
[2017-05-29 14:12] LABS: INR 5.3 (0.8-1.4); PROTHROMBIN TIME PATIENT 47.9 SEC (12.2-14.7)
[2017-05-29 14:51] VITALS: BP 172/79
[2017-05-29] MEDS: DICLOFENAC 1% GEL 100 GM (VOLTAREN) TUBE TOP SCH ×3 (14:51→20:31)
[2017-05-29 16:50] VITALS: BP 173/77
[2017-05-29] MEDS: NS W/KCL 20 MEQ/L 1,000 ML IV SCH (17:41)
[2017-05-29] MEDS ORDERED: warFARin 2 MG (COUMADIN) TAB PO SCH (18:00)
[2017-05-29] MEDS ORDERED: WARFARIN SODIUM 4 MG PO SCH (18:00)
[2017-05-29] MEDS: ATORVASTATIN 10 MG (LIPITOR) TABLET PO SCH (20:29)
[2017-05-29] MEDS: TRIM/SULFAMETH 160/800 (SEPTRA DS) TAB PO SCH (20:29)
[2017-05-29] MEDS: CARVEDILOL 12.5 MG (COREG) TABLET PO SCH (20:29)
--- NOTE | 2017-05-29 20:52 | History & Physicial ---
History of Present Illness History of Present Illness Reason for visit/HPI This is a 67 year old female who was recently discharged from acute rehab after a left hip fracture. She presented to the emergency room with onset of diarrhea and uncontrolled blood sugar. She was found to have acute dehydration with acute renal failure and a urinary tract infection. There was concern for early DKA so the patient was admitted for aggressive IVFs and to monitor her blood sugar and electrolytes. Date of Admission May 28, 2017 at 16:51 Date Seen by Provider: May 29, 2017 Time Seen by Provider: 12:45 I consulted on this patient on 05/29/17 20:46 Attending Physician Nemo Maxwell MD Admitting Physician Leyla Bruce DO Consult Allergies and Home Medications Allergies Coded Allergies: Penicillins (Verified Allergy, Intermediate, HIVES, 05/28/17) hydrocodone (Verified Adverse Reaction, Unknown, VOMITING, 05/28/17) Home Medications Acetaminophen 500 Mg Tablet, 500-1,000 MG PO Q6H PRN for PAIN-MILD, (Reported) TAKES 1-2 (500MG) TABLETS Alendronate Sodium 70 Mg Tablet, 70 MG PO Sa, (Reported) Atorvastatin Calcium 10 Mg Tablet, 10 MG PO HS, (Reported) Calcium Carbonate/Vitamin D3 1 Each Tablet, 1 TAB PO BID, (Reported) Carvedilol 25 Mg Tablet, 25 MG PO BID, (Reported) Citalopram Hydrobromide 20 Mg Tablet, 20 MG PO HS, (Reported) Cyanocobalamin (Vitamin B-12) 1,000 Mcg Tablet, 1,000 MCG PO DAILY, (Reported) Diclofenac Sodium 100 Gm Gel..gram., TOP QID, (Reported) Donepezil HCl 5 Mg Tablet, 5 MG PO HS, (Reported) Hydrochlorothiazide 12.5 Mg Capsule, 12.5 MG PO DAILY, (Reported) Insulin Glargine,Hum.rec.anlog 100 Unit/1 Ml Vial, 22 UNITS SC HS, (Reported) Insulin Lispro 100 Unit/1 Ml Vial, SC AC, (Reported) Losartan Potassium 50 Mg Tablet, 50 MG PO DAILY, (Reported) Metformin HCl 1,000 Mg Tablet, 1,000 MG PO BID WITH MEALS, (Reported) [place]-3/Dha/Epa/Fish Oil 1 Each Capsule, 1,000 MG PO BID, (Reported) Pantoprazole Sodium 40 Mg Tablet.dr, 40 MG PO DAILY, (Reported) Tramadol HCl 50 Mg Tablet, 50 MG PO TID PRN for PAIN-MODERATE, (Reported) Vit C/Vit E/Lutein/Min/[place]-3 1 Each Capsule, 1 CAP PO DAILY, (Reported) Warfarin Sodium 4 Mg Tablet, 4 MG PO 1800, (Reported) Patient Home Medication List Home Medication List Reviewed: Yes Past Lhpqxzm-Hndwaj-Suhgqp Hx Patient Social History Alcohol Use: Denies Use Recreational Drug Use: No Smoking Status: Never a Smoker 2nd Hand Smoke Exposure: No Physical Abuse Screen: No Sexual Abuse: No Recent Foreign Travel: No Contact w/other who traveled: No Recent Hopitalizations: No Recent Infectious Disease Expo: No Immunizations Up To Date Date of Pneumonia Vaccine: Mar 17, 2009 Date of Influenza Vaccine: Mar 02, 2017 Seasonal Allergies Seasonal Allergies: No Surgeries Yes Bladder Surgery, Section, Gallbladder, Hysterectomy Respiratory No Cardiovascular Yes Deep Vein Thrombosis, Hypertension Neurological Yes (1997 ) Stroke Reproductive System Hx Reproductive Disorders: No Sexually Transmitted Disease: No Genitourinary Yes UTI-Chronic Gastrointestinal No Musculoskeletal Yes (OSTEOPENIA) Endocrine History of Endocrine Disorders: Yes Endocrine Disorders: Diabetes, Insulin dep HEENT History of HEENT Disorders: No Cancer Yes (1975-) Cervical Psychosocial History of Psychiatric Problem: No Integumentary History of Skin or Integumenta: No Blood Transfusions History of Blood Disorders: 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) Family Medical History Significant Family History: No Pertinent Family Hx Family Hx: Asthma 19 FATHER Diabetes mellitus 19 FATHER 19 MOTHER Hypertension 19 FATHER 19 MOTHER Constitutional: malaise, weakness EENTM: No see HPI, No no symptoms reported, No ear discharge, No hearing loss, No ear pain, No blurred vision, No double vision, No eye pain, No tearing, No vision loss, No dental problems, No hoarseness, No mouth pain, No mouth swelling , No epistaxis, No nose congestion, No nose pain, No throat pain, No throat swelling, No other Respiratory: No no symptoms reported, No see HPI, No cough, No dyspnea on exertion, No hemoptysis, No orthopnea, No phlegm, No short of breath, No stridor , No wheezing, No other Cardiovascular: No no symptoms reported, No see HPI, No chest pain, No edema, No Hx of Intervention, No palpitations, No syncope, No vascular heart diseas, No other Gastrointestinal: diarrhea, loss of appetite Genitourinary: No no symptoms reported, No see HPI, No decreased output, No discharge, No dysuria, No frequency, No hematuria, No hesitancy, No incontinence , No nocturia, No pain, No other Musculoskeletal: joint pain (left hip and right knee) Skin: other (left hip wound redder and more tender) Psychiatric/Neurological: Weakness Physical Exam Vital Signs Vital Signs - First Documented 05/28/17 17:30 Temp 97.0 Pulse 93 Resp 18 B/P (MAP) 164/84 (110) Pulse Ox 100 O2 Delivery Room Air Capillary Refill : General Appearance: Mild Distress HEENT: Normal ENT Inspection Neck: Supple Respiratory: Lungs Clear Cardiovascular: Regular Rate, Rhythm, Systolic Murmur Gastrointestinal: Normal Bowel Sounds, Non Tender, Soft Rectal: Deferred Back: No CVA Tenderness Extremity: Non Tender, No Calf Tenderness, Pedal Edema (chronic) Neurologic/Psychiatric: Alert, Oriented x3 Skin: Erythema (left hip wound with tender induration inferiorly and some evidence of purulent material oozing out of middle of wound line) Comments Laboratory Tests 05/28/17 21:35: Glucometer 125H 05/29/17 00:30: Urine Color YELLOW, Urine Clarity SLIGHTLY CLOUDY, Urine pH 6, Urine Specific A[place] 1.020, Urine Protein 2+H, Urine Glucose (UA) 3+H, Urine Ketones 4+H, Urine Nitrite NEGATIVE, Urine Bilirubin NEGATIVE, Urine Urobilinogen NORMAL, Urine Leukocyte Esterase 3+H, Urine RBC (Auto) 2+H, Urine RBC 2-5H, Urine WBC 25 -50H, Urine Squamous Epithelial Cells 5-10, Urine Crystals NONE, Urine Bacteria FEWH, Urine Casts NONE, Urine Mucus NEGATIVE, Urine Yeast FEWH, Urine Culture Indicated YES 05/29/17 05:12: Glucometer 262H 05/29/17 06:25: White Blood Count 9.1, Red Blood Count 3.49L, Hemoglobin 10.1L, Hematocrit 31L, Mean Corpuscular Volume 89, Mean Corpuscular Hemoglobin 29, Mean Corpuscular Hemoglobin Concent 33, Red Cell Distribution Width 14.2, Platelet Count 380, Mean Platelet Volume 9.9, Neutrophils (%) (Auto) 77H, Lymphocytes (%) (Auto) 15 , Monocytes (%) (Auto) 6, Eosinophils (%) (Auto) 2, Basophils (%) (Auto) 0, Neutrophils # (Auto) 7.0, Lymphocytes # (Auto) 1.3, Monocytes # (Auto) 0.5, Eosinophils # (Auto) 0.2, Basophils # (Auto) 0.0, Sodium Level 138, Potassium Level 3.8, Chloride Level 108H, Carbon Dioxide Level 8*L, Anion Gap 22H, Blood Urea Nitrogen 18, Creatinine 1.52H, Estimat Glomerular Filtration Rate 34, BUN/ Creatinine Ratio 12, Glucose Level 304H, Calcium Level 8.5, Total Bilirubin 0.3 , Aspartate Amino Transf (AST/SGOT) 16, Alanine Aminotransferase (ALT/SGPT) 13, Alkaline Phosphatase 169H, Total Protein 6.1L, Albumin 3.2 05/29/17 11:38: Glucometer 242H 05/29/17 13:25: Prothrombin Time 47.9*H, INR Comment 5.3*H, Sodium Level 137, Potassium Level 3.3L, Chloride Level 111H, Carbon Dioxide Level 12L, Anion Gap 14, Blood Urea Nitrogen 14, Creatinine 1.28, Estimat Glomerular Filtration Rate 42, BUN/ Creatinine Ratio 11, Glucose Level 207H, Calcium Level 8.1L 05/29/17 16:52: Glucometer 184H Assessment/Plan Assessment and Plan 1. Acute Renal Failure/Dehydration--hydrate and monitor BUN/Cr 2. Early DKA--hydrate and monitor BS and electrolytes 3. Diarrhea--Check stool studies including C. Diff 4. UTI--start Bactrim and Culture urine 5. Left hip wound redness with induration--cover with Bactrim and consult surgery to assess wound 6. Hypertension--resume home medications 7. Weakness--multifactorial 8. Elevated PT/INR--hold coumadin, hydrate and monitor PT/INR Problems: Admission Diagnosis Admission Status: Other (Swing Bed) Reason for Inpatient Admission: Patient has acute renal failure with early DKA and will need aggressive IVFs and monitoring of electrolytes and blood sugar Clinical Quality Measures DVT/VTE Risk/Contraindication: Risk Factor Score Per Nursin RFS Level Per Nursing on Admit: 4+=Very High LEYLA BRUCE DO May 29, 2017 20:52
[2017-05-29] MEDS ORDERED: NON-FORMULARY MEDICATION 1 EA EA (Carvedilol 25 MG) PO SCH (21:00)
[2017-05-30] VITALS: BP 152/68
[2017-05-30] MEDS: ACETAMINOPHEN 500 MG TAB (TYLENOL) PO PRN (02:35)
[2017-05-30] MEDS: NS W/KCL 20 MEQ/L 1,000 ML IV SCH ×2 (02:36→13:58)
[2017-05-30] MEDS: inSUlin (REGULAR) HUMAN 1 UNIT/0.01 ML (CHARGE PER UNIT) SC SCH ×4 (05:55→21:53)
[2017-05-30] MEDS: TRIM/SULFAMETH 160/800 (SEPTRA DS) TAB PO SCH ×2 (06:07→17:32)
[2017-05-30] MEDS: PANTOPRAZOLE 40 MG (PROTONIX) TAB PO SCH (06:07)
[2017-05-30 06:36] LABS: BASOPHILS % (AUTO) 0 % (0-10); EOSINOPHILS # (AUTO) 0.3 10^3/uL (0.0-0.3); EOSINOPHILS % (AUTO) 3 % (0-10); HEMATOCRIT 32 % (35-52); HEMOGLOBIN 10.4 G/DL (11.5-16.0); LYMPHOCYTES # (AUTO) 1.3 X 10^3 (1.0-4.0); LYMPHOCYTES % (AUTO) 17 % (12-44); MEAN CORPUSCULAR HEMOGLOBIN 29 PG (25-34); MEAN CORPUSCULAR HGB CONC 32 G/DL (32-36); MEAN CORPUSCULAR VOLUME 88 FL (80-99); MEAN PLATELET VOLUME 9.6 FL (7.4-10.4); MONOCYTES # (AUTO) 0.6 X 10^3 (0.0-1.0); MONOCYTES % (AUTO) 8 % (0-12); NEUTROPHILS # (AUTO) 5.7 X 10^3 (1.8-7.8); NEUTROPHILS % (AUTO) 72 % (42-75); PLATELET COUNT 394 10^3/uL (130-400); RED BLOOD COUNT 3.64 10^6/uL (4.35-5.85); RED CELL DISTRIBUTION WIDTH 14.7 % (10.0-14.5); WHITE BLOOD COUNT 7.9 10^3/uL (4.3-11.0)
[2017-05-30 07:01] LABS: INR 2.9 (0.8-1.4); PROTHROMBIN TIME PATIENT 29.8 SEC (12.2-14.7)
[2017-05-30 07:07] LABS: ALBUMIN 3.1 GM/DL (3.2-4.5); BILIRUBIN,TOTAL 0.3 MG/DL (0.1-1.0); CALCIUM 8.4 MG/DL (8.5-10.1); CREATININE SERUM 1.09 MG/DL (0.60-1.30); POTASSIUM 3.8 MMOL/L (3.6-5.0); TOTAL PROTEIN 5.9 GM/DL (6.4-8.2)
[2017-05-30 08:00] VITALS: BP 121/79
[2017-05-30] MEDS: DICLOFENAC 1% GEL 100 GM (VOLTAREN) TUBE TOP SCH ×4 (10:02→21:53)
[2017-05-30] MEDS: CARVEDILOL 12.5 MG (COREG) TABLET PO SCH ×2 (10:02→21:52)
--- NOTE | 2017-05-30 11:33 | Occupational Ther Daily Note ---
OT Current Status-Daily Note Subjective Pt in bed, agrees to treatment. Mental Status/Objective Functional [place] Measure 0=Not Assessed/NA 4=Minimal Assistance 1=Total Assistance 5=Supervision or Setup 2=Maximal Assistance 6=Modified [place] 3=Moderate Assistance 7=Complete [place] ADL-Treatment Functional [place] Measure 0=Not Assessed/NA 4=Minimal Assistance 1=Total Assistance 5=Supervision or Setup 2=Maximal Assistance 6=Modified [place] 3=Moderate Assistance 7=Complete IndependenceIRFPAI Quality Coding Scale 6 Independent with activity with or without an assistive device 5 Patient requires set up or clean up by helper. Patient completes activity by themselves 4 Supervision or touching assist (CGA). [place] provide cues , steadying assist 3 The helper provides less than half the effort to complete the activity 2 The helper provides more than half the effort to complete the activity 1 Dependent. The helper does all the effort to complete an activity 7 Patient refused to complete or attempt activity 9 The patient did not perform the activity before the current illness or injury 88 Not attempted due to Medical conditions or safety concerns Other Treatment Pt states she has already showered and completed ADLs this morning, but is agreeable to UE exercises. Pt performed four bilateral UE exercises x10 reps with moderate resistance (red) theraband to increase strength needed for ADLs and transfers. Pt requires rest breaks between exercises and cues for proper exercise technique. Pt repositioned in bed with needs met after session. OT Short Term Goals Short Term Goals 1=Demonstrate adherence to instructed precautions during ADL tasks. 2=Patient will verbalize/demonstrate understanding of assistive devices/ modifications for ADL. 3=Patient will improve strength/tolerance for activity to enable patient to perform ADL's. OT Mcc Goals Material Damage Appraiser Goals Time Frame: Jun 12, 2017 Eating (FIM): 6 Eating (QC): 6 Groomin Oral Hygiene (QC): 6 Bathing(FIM): 5 Upper Body Dressing(FIM): 6 Lower Body Dressing(FIM): 5 Toileting(FIM): 6 Toileting Hygiene (QC): 6 Toilet/Commode Transfer(FIM): 6 Toilet/Commode Transfer (QC): 6 Shower Transfer(FIM): 5 Additional Goals: 1-Demonstrate ADL Tasks, 2-Verbalize Understanding, 3- ImproveStrength/Issac 1=Demonstrate adherence to instructed precautions during ADL tasks. 2=Patient will verbalize/demonstrate understanding of assistive devices/ modifications for ADL. 3=Patient will improve strength/tolerance for activity to enable patient to perform ADL's. OT Education/Plan Problem List/Assessment Pt to benefit from skilled OT intervention for ADL training, transfers, strengthening, and safety education to increase level of independence and allow safe discharge plan. Discharge Recommendations Plan/Recommendations: Continue POC Treatment Plan/Plan of Care Patient would benefit from OT for education, treatment and training to promote independence in ADL's, mobility, safety and/or upper extremity function for ADL' s. Plan of Care: ADL Retraining, Functional Mobility, UE Funct Exercise/Act Treatment Duration: Jun 12, 2017 Frequency: 5 times per week Estimated Hrs Per Day: .25 hour per day Rehab Potential: Good Time/GCodes Start Time: 10:35 Stop Time: 10:50 Total Time Billed (hr/min): 15 Billed Treatment Time 1 visit, EX(15minutes) BRIGHT SANTIAGO OT May 30, 2017 11:33
[2017-05-30 12:00] VITALS: BP 145/64
[2017-05-30] MEDS ORDERED: VANCOMYCIN INJECTION 1,000 MG in NS (IVPB) 250 ML IV ONE (13:15)
--- NOTE | 2017-05-30 13:55 | Physical Therapy Daily Note ---
PT Daily Note-Current Subjective Pt laying Supine in bed upon arrival. Pt agrees to PT but needs to use Bedpan first. Pain Location: No Pain Reported Mental Status Patient Orientation: Person, Place, Time, Situation Attachments: IV Transfers Functional [place] Measure 0=Not Assessed/NA 4=Minimal Assistance 1=Total Assistance 5=Supervision or Setup 2=Maximal Assistance 6=Modified [place] 3=Moderate Assistance 7=Complete IndependenceIRFPAI Quality Coding Scale 6 Independent with activity with or without an assistive device 5 Patient requires set up or clean up by helper. Patient completes activity by themselves 4 Supervision or touching assist (CGA). [place] provide cues , steadying assist 3 The helper provides less than half the effort to complete the activity 2 The helper provides more than half the effort to complete the activity 1 Dependent. The helper does all the effort to complete an activity 7 Patient refused to complete or attempt activity 9 The patient did not perform the activity before the current illness or injury 88 Not attempted due to Medical conditions or safety concerns Roll Left to Right (QC): 5 Weight Bearing Right Lower Extremity: Right Weight Bearing/Tolerated Left Lower Extremity: Left Weight Bearing/Tolerated Exercises Supine Ex: Ankle pumps, Quad Set, Heel Slides, Straight leg raise, Hip abd/add Supine Reps: 15 Treatments Pt rolls to use Bedpan at SBA, only needs assist to place bedpan & for pericare. After finishing, pt completes Supine Ex in bed with a couple short rest breaks. Pt resting in bed at end of tx with pillows positioned & call light in hand (all needs met). Assessment Current Status: Good Progress Pt is getting stronger although fatigues/tires easily. PT Keno Dealer Goals Keno Dealer Goals PT Group Home Goals Time Frame: Jun 08, 2017 Transfers (B,C,W/C) (FIM): 6 Sit to Lying (QC): 6 Lying-Sitting on Side/Bed(QC): 6 Sit to Stand (QC): 6 Rollin Chair/Yjb-nl-Uhesm Xfer(QC): 6 Does the Patient Walk: Yes Gait (FIM): 6 Gait distance (FIM): 3=150 ft Distance: 150' Walk 50ft with 2 Turns (QC): 6 Walk 150 ft (QC): 6 Gait Level of Assist: 6 Gait Assistive Device: FWW PT Plan Problem List Problem List: Activity Tolerance, Functional Strength, Gait, Transfer Treatment/Plan Treatment Plan: Continue Plan of Care Treatment Plan: Education, Functional Activity Issac, Functional Strength, Gait , Safety, Therapeutic Exercise Treatment Duration: Jun 08, 2017 Frequency: 6 times per week Estimated Hrs Per Day: .5 hour per day (or PRN) Patient and/or Family Agrees t: Yes Safety Risks/Education Patient Education: Transfer Techniques, Correct Positioning, Safety Issues Teaching Recipient: Patient Teaching Methods: Discussion Response to Teaching: Verbalize Understanding Time/GCodes Time In: 1315 Time Out: 1345 Total Billed Treatment Time: 30 Total Billed Treatment 1, FA (10m) & EX (20m) RON CHANEL IN HOME CAREGIVER May 30, 2017 13:55
[2017-05-30] MEDS ORDERED: VANCOMYCIN 1500 MG/NS 500 ML IVPB IV NR ×2 (14:00)
[2017-05-30] MEDS ORDERED: VANCOMYCIN 1250 MG/NS 250 ML IVPB IV NR ×2 (14:00)
[2017-05-30] MEDS ORDERED: VANCOMYCIN INJECTION 0.1 MG in NS (IVPB) 250 ML IV SCH (14:30)
[2017-05-30 15:40] VITALS: BP 151/70
--- NOTE | 2017-05-30 16:44 | Consultation ---
History of Present Illness History of Present Illness Patient Consulted On(blanco/time) 05/30/17 16:36 Date Seen by Provider: May 30, 2017 Time Seen by Provider: 16:30 Reason for Visit: DKA History of Present Illness Ms. De Leon is a pleasant 67 y/o female with multiple medical comorbidities that was admitted to the hospital with DKA. Patient is known to me. She about 4 weeks out from an ORIF of a comminuted intertrochanteric fracture of the Left proximal femur. Orthopedic service was consulted out of concern for a possible post-op wound problem. The patient has no current c/o Left hip pain. She says she has been ambulating well on her LLE with only modest discomfort with weight bearing. She denies drainage from her surgical incisions. She also denies f/c/ns , cp/sob, n/v. She has no musculoskeletal complaints at this time. Allergies and Home Medications Allergies Coded Allergies: Penicillins (Verified Allergy, Intermediate, HIVES, 05/28/17) hydrocodone (Verified Adverse Reaction, Unknown, VOMITING, 05/28/17) Home Medications Acetaminophen 500 Mg Tablet, 500-1,000 MG PO Q6H PRN for PAIN-MILD, (Reported) TAKES 1-2 (500MG) TABLETS Alendronate Sodium 70 Mg Tablet, 70 MG PO Sa, (Reported) Atorvastatin Calcium 10 Mg Tablet, 10 MG PO HS, (Reported) Calcium Carbonate/Vitamin D3 1 Each Tablet, 1 TAB PO BID, (Reported) Carvedilol 25 Mg Tablet, 25 MG PO BID, (Reported) Citalopram Hydrobromide 20 Mg Tablet, 20 MG PO HS, (Reported) Cyanocobalamin (Vitamin B-12) 1,000 Mcg Tablet, 1,000 MCG PO DAILY, (Reported) Diclofenac Sodium 100 Gm Gel..gram., TOP QID, (Reported) Donepezil HCl 5 Mg Tablet, 5 MG PO HS, (Reported) Hydrochlorothiazide 12.5 Mg Capsule, 12.5 MG PO DAILY, (Reported) Insulin Glargine,Hum.rec.anlog 100 Unit/1 Ml Vial, 22 UNITS SC HS, (Reported) Insulin Lispro 100 Unit/1 Ml Vial, SC AC, (Reported) Losartan Potassium 50 Mg Tablet, 50 MG PO DAILY, (Reported) Metformin HCl 1,000 Mg Tablet, 1,000 MG PO BID WITH MEALS, (Reported) [place]-3/Dha/Epa/Fish Oil 1 Each Capsule, 1,000 MG PO BID, (Reported) Pantoprazole Sodium 40 Mg Tablet.dr, 40 MG PO DAILY, (Reported) Tramadol HCl 50 Mg Tablet, 50 MG PO TID PRN for PAIN-MODERATE, (Reported) Vit C/Vit E/Lutein/Min/[place]-3 1 Each Capsule, 1 CAP PO DAILY, (Reported) Warfarin Sodium 4 Mg Tablet, 4 MG PO 1800, (Reported) Patient Home Medication List Home Medication List Reviewed: Yes Past Bopktrt-Zbereq-Gjasxc Hx Patient Social History Alcohol Use: Denies Use Recreational Drug Use: No Smoking Status: Never a Smoker 2nd Hand Smoke Exposure: No Recent Foreign Travel: No Contact w/Someone Who Travel: No Recent Infectious Disease Expo: No Recent Hopitalizations: No Immunizations Up To Date Date of Pneumonia Vaccine: Mar 17, 2009 Date of Influenza Vaccine: Mar 02, 2017 Seasonal Allergies Seasonal Allergies: No Surgeries History of Surgeries: Yes Surgeries: Bladder Surgery, Section, Gallbladder, Hysterectomy Respiratory History of Respiratory Disorde: No Cardiovascular History of Cardiac Disorders: Yes Cardiac Disorders: Deep Vein Thrombosis, Hypertension Neurological History of Neurological Disord: Yes (1997 ) Neurological Disorders: Stroke Reproductive System Hx Reproductive Disorders: No Sexually Transmitted Disease: No Genitourinary History of Genitourinary Disor: Yes Genitourinary Disorders: UTI-Chronic Gastrointestinal History of Gastrointestinal Di: No Musculoskeletal History of Musculoskeletal Dis: Yes (OSTEOPENIA) Endocrine History of Endocrine Disorders: Yes Endocrine Disorders: Diabetes, Insulin dep HEENT History of HEENT Disorders: No Cancer History of Cancer: Yes (1975-REMOVED) Cancer: Cervical Psychosocial History of Psychiatric Problem: No Integumentary History of Skin or Integumenta: No Blood Transfusions History of Blood Disorders: 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) Family Medical History Significant Family History: No Pertinent Family Hx Family Medial History: Asthma 19 FATHER Diabetes mellitus 19 FATHER 19 MOTHER Hypertension 19 FATHER 19 MOTHER Review of Systems-General Constitutional: no symptoms reported EENTM: no symptoms reported Respiratory: no symptoms reported Cardiovascular: no symptoms reported Gastrointestinal: no symptoms reported Genitourinary: dysuria Musculoskeletal: no symptoms reported Physical Exam-General Problems Physical Exam Vital Signs Vital Signs - First Documented 05/28/17 17:30 Temp 97.0 Pulse 93 Resp 18 B/P (MAP) 164/84 (110) Pulse Ox 100 O2 Delivery Room Air Capillary Refill : General Appearance: WD/WN, no apparent distress Eyes: Bilateral Eye Normal Inspection, Bilateral Eye PERRL, Bilateral Eye EOMI HEENT: PERRL/EOMI, normal ENT inspection Neck: supple Respiratory: no respiratory distress, no accessory muscle use Cardiovascular: normal peripheral pulses, regular rate, rhythm Peripheral Pulses: 2+ Dorsalis Pedis (R), 2+ Left Dors-Pedis (L) Gastrointestinal: non tender, soft Extremities: normal range of motion, non-tender, no calf tenderness, other (LLE : surgical incisions lateral aspect of Left femur with mild erthema along the middle incision, some mild superficial skin sloughing likely from pressure on the wound or perhaps tape, all incisions clean and dry, no drainage, some induration present consistent with resolving hematoma, no gross signs of wound infection present; all compartments soft/NT, motor/sensation grossly intact.) Assessment/Plan Assessment/Plan Admission Diagnosis/Plan 67 y/o female about 4 weeks post-op s/p ORIF comminuted intertrochanteric fracture Left proximal femur, current hospital admission for DKA. Pt is currently stable Examination of the surgical incisions Left hip consistent with resolving hematoma, no gross signs of infection, no indication for surgical debridement. Pt continue PT/OT for mobilization OOB, WBAT LLE. Will order a follow-up XR of the Left femur. I instructed the patient to follow-up with me outpatient in 2-3 weeks; she will need to contact the office to confirm her appointment. Clinical Quality Measures DVT/VTE Risk/Contraindication: Risk Factor Score Per Nursin RFS Level Per Nursing on Admit: 4+=Very High FAM DODSON DO May 30, 2017 16:44
[2017-05-30] MEDS: warFARin 2 MG (COUMADIN) TAB PO SCH (17:32)
--- NOTE | 2017-05-30 18:13 | Diagnostic Imaging Report ---
INDICATION: One month postop left hip surgery, complaining of knee pain. COMPARISON STUDY: Intraoperative views of the left hip from May 02. FINDINGS: Two views of the left hip and Two views of the left femur demonstrate open reduction and internal fixation of the comminuted intertrochanteric fracture. Major fragments are well-aligned. Early healing is identified. No evidence of hardware loosening is present. The joint space appears unremarkable. There is a 12 cm soft tissue nodule, laterally, which is probably a hematoma. Arterial sclerosis is present. The remainder of the femur appears unremarkable. Degenerative change is present in the knee. IMPRESSION: 1. Early healing of the internally fixated the left intratrochanteric fracture. 2. Large soft tissue density is seen in the subcutaneous tissue, laterally, which is probably a hematoma. Dictated by: Dictated on workstation # [id number]
[2017-05-30 20:50] VITALS: BP 136/54
[2017-05-30] MEDS: ATORVASTATIN 10 MG (LIPITOR) TABLET PO SCH (21:52)
[2017-05-30] MEDS: inSUlin DETERMIR 1 UNIT/0.01 ML (LEVEMIR) CHARGE PER UNIT SQ SCH (21:52)
--- NOTE | 2017-05-30 23:51 | Progress Note (SOAP) ---
Subjective Date Seen by Provider: May 30, 2017 Time Seen by Provider: 12:45 Subjective/Events-last exam Fwup early DKA with dehydration and acute renal failure, diarrhea, weakness, left hip wound seroma vs hematoma vs abscess, UTI, hypertension, diabetes mellitus--insulin requiring. Still with diarrhea but not as severe. Feeling a little better. Objective Exam Vital Signs Date Time Temp Pulse Resp B/P (MAP) Pulse Ox O2 Delivery O2 Flow Rate FiO2 05/30/17 20:50 97.6 69 18 136/54 (81) 98 Room Air 05/30/17 19:00 72 05/30/17 15:40 97.3 68 19 151/70 (97) 99 Room Air 05/30/17 13:00 75 05/30/17 12:00 98.4 89 18 145/64 (91) 98 Room Air 05/30/17 09:00 Room Air 05/30/17 08:00 98.6 89 18 121/79 (93) 98 Room Air 05/30/17 07:00 62 05/30/17 01:00 66 05/30/17 00:00 96.9 81 19 152/68 (96) 97 Room Air I & O 05/30/17 07:00 Intake Total 2570 ml Output Total 2150 ml Balance 420 ml Capillary Refill : General Appearance: No Apparent Distress Neck: Supple Respiratory: Lungs Clear Cardiovascular: Regular Rate, Rhythm Gastrointestinal: normal bowel sounds, non tender, soft Extremity: Non Tender, No Calf Tenderness, Pedal Edema (chronic) Neurologic/Psychiatric: Alert, Oriented x3 Skin: Erythema (with induration and tenderness to lower left hip wound) Results Lab Laboratory Tests 05/30/17 05:29: Glucometer 179H 05/30/17 06:30: White Blood Count 7.9, Red Blood Count 3.64L, Hemoglobin 10.4L, Hematocrit 32L, Mean Corpuscular Volume 88, Mean Corpuscular Hemoglobin 29, Mean Corpuscular Hemoglobin Concent 32, Red Cell Distribution Width 14.7H, Platelet Count 394, Mean Platelet Volume 9.6, Neutrophils (%) (Auto) 72, Lymphocytes (%) (Auto) 17, Monocytes (%) (Auto) 8, Eosinophils (%) (Auto) 3, Basophils (%) (Auto) 0, Neutrophils # (Auto) 5.7, Lymphocytes # (Auto) 1.3, Monocytes # (Auto) 0.6, Eosinophils # (Auto) 0.3, Basophils # (Auto) 0.0, Prothrombin Time 29.8H, INR Comment 2.9H, Sodium Level 138, Potassium Level 3.8, Chloride Level 112H, Carbon Dioxide Level 17L, Anion Gap 9, Blood Urea Nitrogen 9, Creatinine 1.09, Estimat Glomerular Filtration Rate 50, BUN/Creatinine Ratio 8, Glucose Level 214H, Calcium Level 8.4L, Total Bilirubin 0.3, Aspartate Amino Transf (AST/SGOT ) 14, Alanine Aminotransferase (ALT/SGPT) 14, Alkaline Phosphatase 159H, Total Protein 5.9L, Albumin 3.1L 05/30/17 11:47: Glucometer 517*H 05/30/17 15:45: Glucometer 314H 05/30/17 20:54: Glucometer 161H Microbiology 05/29/17 C. difficile GDH Antigen & Toxins - Final, Complete 05/29/17 Urine Culture - Preliminary, Resulted Staph, Coag Neg (GRAIN BLENDER) Presumptive Martha Albicans Assessment/Plan Assessment/Plan Assess & Plan/Chief Complaint 1. Early DKA with Acute Dehydration and Renal Failure--improved with hydration 2. Diarrhea--C diff negative so will add colestid if needed 3. UTI--on Bactrim, culture pending 4. Left hip seroma vs hematoma vs abscess--will start Vancomycin and obtain surgery consult to assess wound 5. Hypertension--home meds restarted 6. Diabetes mellitus--insulin requiring--resume levemir tonight 7. Weakness--PT/OT started 8. Elevated PT/INR--INR improved so will resume coumadin but at lower dose Clinical Quality Measures Admission Status Admission Dx 1. Acute Renal Failure/Dehydration--hydrate and monitor BUN/Cr 2. Early DKA--hydrate and monitor BS and electrolytes 3. Diarrhea--Check stool studies including C. Diff 4. UTI--start Bactrim and Culture urine 5. Left hip wound redness with induration--cover with Bactrim and consult surgery to assess wound 6. Hypertension--resume home medications 7. Weakness--multifactorial 8. Elevated PT/INR--hold coumadin, hydrate and monitor PT/INR DVT/VTE Risk/Contraindication: Risk Factor Score Per Nursin RFS Level Per Nursing on Admit: 4+=Very High SHAKEEL BRUCE DO May 30, 2017 11:51 pm
[2017-05-31] VITALS: BP 165/78
[2017-05-31] MEDS: NS W/KCL 20 MEQ/L 1,000 ML IV SCH ×2 (04:11→06:20)
[2017-05-31 05:00] VITALS: BP 155/77
[2017-05-31] MEDS: inSUlin (REGULAR) HUMAN 1 UNIT/0.01 ML (CHARGE PER UNIT) SC SCH ×4 (06:14→21:08)
[2017-05-31] MEDS: TRIM/SULFAMETH 160/800 (SEPTRA DS) TAB PO SCH (06:19)
[2017-05-31] MEDS: PANTOPRAZOLE 40 MG (PROTONIX) TAB PO SCH (06:19)
[2017-05-31 08:00] VITALS: BP 160/75
[2017-05-31] MEDS: DICLOFENAC 1% GEL 100 GM (VOLTAREN) TUBE TOP SCH ×4 (08:44→20:59)
[2017-05-31] MEDS: CARVEDILOL 12.5 MG (COREG) TABLET PO SCH ×2 (08:44→21:00)
--- NOTE | 2017-05-31 11:24 | Physical Therapy Daily Note ---
PT Daily Note-Current Subjective Patient agrees to PT. Pain Numeric Pain Scale: 5-Moderate Pain Location: Left Location Body Site: Hip Pain Description: Ache Mental Status Patient Orientation: Normal For Age Attachments: IV Transfers Functional [place] Measure 0=Not Assessed/NA 4=Minimal Assistance 1=Total Assistance 5=Supervision or Setup 2=Maximal Assistance 6=Modified [place] 3=Moderate Assistance 7=Complete IndependenceIRFPAI Quality Coding Scale 6 Independent with activity with or without an assistive device 5 Patient requires set up or clean up by helper. Patient completes activity by themselves 4 Supervision or touching assist (CGA). [place] provide cues , steadying assist 3 The helper provides less than half the effort to complete the activity 2 The helper provides more than half the effort to complete the activity 1 Dependent. The helper does all the effort to complete an activity 7 Patient refused to complete or attempt activity 9 The patient did not perform the activity before the current illness or injury 88 Not attempted due to Medical conditions or safety concerns Transfers (B, C, W/C) (FIM): 5 Scootin Roll Left to Right (QC): 6 Supine to/from Sit: 6 Sit to/from Stand: 5 Sit to Lying (QC): 6 Sit to Stand (QC): 5 Weight Bearing Right Lower Extremity: Right Weight Bearing/Tolerated Left Lower Extremity: Left Weight Bearing/Tolerated Gait Training Does the Patient Walk?: Yes Gait (FIM): 6 Distance (FIM): 3=150 ft Distance: 275' Walk 50 ft with 2 Turns(QC): 6 Walk 150 ft (QC): 6 Gait Level of Assist: 6 Gait Assistive Device: FWW slow, antalgic Exercises Supine Ex: Ankle pumps, Quad Set, Heel Slides Supine Reps: 10 Assessment Patient does self limit with activity. Patient to dismiss to [place] this week. PT Weld Lay Out Worker Goals Alf Goals PT Alf Goals Time Frame: Jun 08, 2017 Transfers (B,C,W/C) (FIM): 6 Sit to Lying (QC): 6 (met 05/31/17) Lying-Sitting on Side/Bed(QC): 6 (met 05/31/17) Sit to Stand (QC): 6 Rollin (met 05/31/17) Chair/Mde-ap-Jbvrw Xfer(QC): 6 Does the Patient Walk: Yes Gait (FIM): 6 (met 05/31/17) Gait distance (FIM): 3=150 ft Distance: 150' Walk 50ft with 2 Turns (QC): 6 (met 05/31/17) Walk 150 ft (QC): 6 (met 05/31/17) Gait Level of Assist: 6 (met 05/31/17) Gait Assistive Device: FWW PT Plan Treatment/Plan Treatment Plan: Continue Plan of Care Treatment Plan: Education, Functional Activity Issac, Functional Strength, Gait , Safety, Therapeutic Exercise Treatment Duration: Jun 08, 2017 Frequency: 6 times per week Estimated Hrs Per Day: .5 hour per day (or PRN) Patient and/or Family Agrees t: Yes Time/GCodes Time In: 1021 Time Out: 1036 Total Billed Treatment Time: 15 Total Billed Treatment 1 visit FA 15 min CECILIA DE OLIVEIRA PT May 31, 2017 11:24
[2017-05-31] MEDS ORDERED: COLESTIPOL 1 GM (COLESTID) TAB PO ONE (12:45)
[2017-05-31] MEDS ORDERED: fluCOnazole (DIFLUCAN) 100 MG TAB PO NR (12:45)
--- NOTE | 2017-05-31 13:05 | Occupational Ther Daily Note ---
OT Current Status-Daily Note Subjective Pt. states, "I'm just going to chill right now." Appearance Pt. in bed. Does agree to transfer to a chair to eat lunch. Mental Status/Objective Patient Orientation: Person Functional [place] Measure 0=Not Assessed/NA 4=Minimal Assistance 1=Total Assistance 5=Supervision or Setup 2=Maximal Assistance 6=Modified [place] 3=Moderate Assistance 7=Complete [place] Attachments: IV ADL-Treatment Functional [place] Measure 0=Not Assessed/NA 4=Minimal Assistance 1=Total Assistance 5=Supervision or Setup 2=Maximal Assistance 6=Modified [place] 3=Moderate Assistance 7=Complete IndependenceIRFPAI Quality Coding Scale 6 Independent with activity with or without an assistive device 5 Patient requires set up or clean up by helper. Patient completes activity by themselves 4 Supervision or touching assist (CGA). [place] provide cues , steadying assist 3 The helper provides less than half the effort to complete the activity 2 The helper provides more than half the effort to complete the activity 1 Dependent. The helper does all the effort to complete an activity 7 Patient refused to complete or attempt activity 9 The patient did not perform the activity before the current illness or injury 88 Not attempted due to Medical conditions or safety concerns Toileting (FIM): 2 (Pt. became incontinent while standing. OT washed rear donna area for pt.) Toileting Hygiene (QC): 2 Transfers (B, C, W/C) (FIM): 5 (SBA to transfer supine-sit and sit-stand.) Pt. transferred to side of bed and then stood. Became incontinent of stool when standing. OT washed rear donna area and changed gown for her. Pt. does not have street clothing available. Pt. states that she is transferring to a SNF. Pt. ordered lunch once up in chair. Education OT Patient Education: Correct positioning, Modified ADL techniques, Progress toward Goal/Update tx plan, Purpose of tx/functional activities, Reviewed precautions, Rehab process, Transfer techniques Teaching Recipient: Patient Teaching Methods: Demonstration Response to Teaching: Verbalize Understanding, Return Demonstration OT Short Term Goals Short Term Goals 1=Demonstrate adherence to instructed precautions during ADL tasks. 2=Patient will verbalize/demonstrate understanding of assistive devices/ modifications for ADL. 3=Patient will improve strength/tolerance for activity to enable patient to perform ADL's. OT Chcf Goals Ibm Bpm Developer Goals Time Frame: Jun 12, 2017 Eating (FIM): 6 Eating (QC): 6 Groomin Oral Hygiene (QC): 6 Bathing(FIM): 5 Upper Body Dressing(FIM): 6 Lower Body Dressing(FIM): 5 Toileting(FIM): 6 Toileting Hygiene (QC): 6 Toilet/Commode Transfer(FIM): 6 Toilet/Commode Transfer (QC): 6 Shower Transfer(FIM): 5 Additional Goals: 1-Demonstrate ADL Tasks, 2-Verbalize Understanding, 3- ImproveStrength/Issac 1=Demonstrate adherence to instructed precautions during ADL tasks. 2=Patient will verbalize/demonstrate understanding of assistive devices/ modifications for ADL. 3=Patient will improve strength/tolerance for activity to enable patient to perform ADL's. OT Education/Plan Problem List/Assessment Assessment: Decreased Activ Tolerance, Decreased UE Strength, Impaired I ADL's , Impaired Self-Care Skills Pt to benefit from skilled OT intervention for ADL training, transfers, strengthening, and safety education to increase level of independence and allow safe discharge plan. Discharge Recommendations Plan/Recommendations: Continue POC Therapy D/C Recommendations: 24 hr Supervision Treatment Plan/Plan of Care Treatment,Training & Education: Yes Patient would benefit from OT for education, treatment and training to promote independence in ADL's, mobility, safety and/or upper extremity function for ADL' s. Plan of Care: ADL Retraining, Functional Mobility, UE Funct Exercise/Act Treatment Duration: Jun 12, 2017 Frequency: 5 times per week Estimated Hrs Per Day: .25 hour per day Rehab Potential: Good Time/GCodes Start Time: 11:42 Stop Time: 12:00 Total Time Billed (hr/min): 18 Billed Treatment Time 1, ADL NASEEM BURK OT May 31, 2017 13:05
[2017-05-31] MEDS: COLESTIPOL 1 GM (COLESTID) TAB PO SCH ×2 (13:43→20:59)
[2017-05-31] MEDS: VANCOMYCIN 1250 MG/NS 250 ML IVPB IV SCH ×2 (13:48)
[2017-05-31 16:00] VITALS: BP 128/60
[2017-05-31] MEDS: warFARin 2 MG (COUMADIN) TAB PO SCH (17:29)
[2017-05-31 20:00] VITALS: BP 144/62
[2017-05-31] MEDS: ATORVASTATIN 10 MG (LIPITOR) TABLET PO SCH (21:00)
[2017-05-31] MEDS: ACETAMINOPHEN 500 MG TAB (TYLENOL) PO PRN (21:02)
[2017-05-31] MEDS: inSUlin DETERMIR 1 UNIT/0.01 ML (LEVEMIR) CHARGE PER UNIT SQ SCH (21:08)
--- NOTE | 2017-05-31 22:15 | Progress Note (SOAP) ---
Subjective Date Seen by Provider: May 31, 2017 Time Seen by Provider: 12:30 Subjective/Events-last exam Fwup early DKA with dehydration and acute renal failure, diarrhea, weakness, left hip wound seroma vs hematoma vs abscess, UTI, hypertension, diabetes mellitus--insulin requiring. Still with diarrhea. Left hip wound not as tender. Objective Exam Vital Signs Date Time Temp Pulse Resp B/P (MAP) Pulse Ox O2 Delivery O2 Flow Rate FiO2 05/31/17 20:00 97.5 74 18 144/62 (89) 98 Room Air 05/31/17 19:00 69 05/31/17 16:00 97.0 62 16 128/60 (82) 99 Room Air 05/31/17 13:00 84 05/31/17 12:00 97.8 82 18 98 Room Air 05/31/17 08:00 Room Air 05/31/17 08:00 97.8 84 20 160/75 (103) 98 Room Air 05/31/17 07:00 80 05/31/17 05:00 96.8 63 18 155/77 (103) 97 Room Air 05/31/17 01:00 66 05/31/17 00:00 98.5 63 18 165/78 (107) 99 Room Air I & O 05/31/17 07:00 Intake Total 4315 ml Output Total 1725 ml Balance 2590 ml Capillary Refill : General Appearance: No Apparent Distress Neck: Supple Respiratory: Lungs Clear Cardiovascular: Regular Rate, Rhythm Gastrointestinal: normal bowel sounds, non tender, soft Extremity: Non Tender, No Calf Tenderness Neurologic/Psychiatric: Alert, Oriented x3 Skin: Erythema (left hip wound less tender and less indurated) Results Lab Laboratory Tests 05/31/17 05:25: Glucometer 125H 05/31/17 10:59: Glucometer 254H 05/31/17 16:13: Glucometer 163H 05/31/17 21:05: Glucometer 396H Microbiology 05/29/17 C. difficile GDH Antigen & Toxins - Final, Complete 05/29/17 Urine Culture - Final, Complete Staph, Coag Neg (MATERIALS AND PROCESSES MANAGER) Presumptive Martha Albicans Assessment/Plan Assessment/Plan Assess & Plan/Chief Complaint 1. Early DKA with Acute Dehydration and Renal Failure--improved with hydration 2. Diarrhea--C diff negative so will add colestid 3. UTI--DC bactrim 4. Left hip seroma vs hematoma vs abscess--will cont Vancomycin as wound is less tender, red and indurated since starting 5. Hypertension--home meds restarted 6. Diabetes mellitus--insulin requiring--continue levemir and SSI 7. Weakness--PT/OT started 8. Elevated PT/INR--INR improved, repeat PT/INR in AM Clinical Quality Measures Admission Status Admission Dx 1. Acute Renal Failure/Dehydration--hydrate and monitor BUN/Cr 2. Early DKA--hydrate and monitor BS and electrolytes 3. Diarrhea--Check stool studies including C. Diff 4. UTI--start Bactrim and Culture urine 5. Left hip wound redness with induration--cover with Bactrim and consult surgery to assess wound 6. Hypertension--resume home medications 7. Weakness--multifactorial 8. Elevated PT/INR--hold coumadin, hydrate and monitor PT/INR DVT/VTE Risk/Contraindication: Risk Factor Score Per Nursin RFS Level Per Nursing on Admit: 4+=Very High SHAKEEL BRUCE DO May 31, 2017 22:15
[2017-06-01 00:15] VITALS: BP 132/76
[2017-06-01 04:33] VITALS: BP 129/66
[2017-06-01 05:57] LABS: BASOPHILS % (AUTO) 0 % (0-10); EOSINOPHILS # (AUTO) 0.2 10^3/uL (0.0-0.3); EOSINOPHILS % (AUTO) 4 % (0-10); HEMATOCRIT 28 % (35-52); HEMOGLOBIN 9.2 G/DL (11.5-16.0); LYMPHOCYTES # (AUTO) 1.3 X 10^3 (1.0-4.0); LYMPHOCYTES % (AUTO) 24 % (12-44); MEAN CORPUSCULAR HEMOGLOBIN 29 PG (25-34); MEAN CORPUSCULAR HGB CONC 33 G/DL (32-36); MEAN CORPUSCULAR VOLUME 88 FL (80-99); MEAN PLATELET VOLUME 9.7 FL (7.4-10.4); MONOCYTES # (AUTO) 0.7 X 10^3 (0.0-1.0); MONOCYTES % (AUTO) 14 % (0-12); NEUTROPHILS # (AUTO) 3.1 X 10^3 (1.8-7.8); NEUTROPHILS % (AUTO) 59 % (42-75); PLATELET COUNT 339 10^3/uL (130-400); RED CELL DISTRIBUTION WIDTH 15.1 % (10.0-14.5); WHITE BLOOD COUNT 5.2 10^3/uL (4.3-11.0)
[2017-06-01 06:12] LABS: PROTHROMBIN TIME PATIENT 22.7 SEC (12.2-14.7)
[2017-06-01 06:18] LABS: ALANINE AMINOTRANSFERASE 13 U/L (0-55); ALBUMIN 2.7 GM/DL (3.2-4.5); ALKALINE PHOSPHATASE 150 U/L (40-136); BILIRUBIN,TOTAL 0.3 MG/DL (0.1-1.0); BUN/CREATININE RATIO 8; CALCIUM 8.2 MG/DL (8.5-10.1); CARBON DIOXIDE 20 MMOL/L (21-32); CHLORIDE 116 MMOL/L (98-107); GFR ESTIMATED > 60; POTASSIUM 3.4 MMOL/L (3.6-5.0); SODIUM 142 MMOL/L (135-145); TOTAL PROTEIN 5.2 GM/DL (6.4-8.2)
[2017-06-01 06:24] LABS: GLUCOSE 56 MG/DL (70-105)
[2017-06-01] MEDS: inSUlin (REGULAR) HUMAN 1 UNIT/0.01 ML (CHARGE PER UNIT) SC SCH ×4 (06:30→20:50)
[2017-06-01] MEDS: PANTOPRAZOLE 40 MG (PROTONIX) TAB PO SCH (06:31)
[2017-06-01 08:00] VITALS: BP 168/72
[2017-06-01] MEDS: fluCOnazole (DIFLUCAN) 100 MG TAB PO SCH (08:09)
[2017-06-01] MEDS: CARVEDILOL 12.5 MG (COREG) TABLET PO SCH ×2 (08:09→20:49)
[2017-06-01] MEDS: DICLOFENAC 1% GEL 100 GM (VOLTAREN) TUBE TOP SCH ×4 (08:09→20:50)
[2017-06-01] MEDS: COLESTIPOL 1 GM (COLESTID) TAB PO SCH ×2 (08:09→20:49)
--- NOTE | 2017-06-01 09:44 | Physical Therapy Daily Note ---
PT Daily Note-Current Subjective Patient agrees to PT. Pain Numeric Pain Scale: 0-No Pain Location: No Pain Reported Mental Status Patient Orientation: Normal For Age Transfers Functional [place] Measure 0=Not Assessed/NA 4=Minimal Assistance 1=Total Assistance 5=Supervision or Setup 2=Maximal Assistance 6=Modified [place] 3=Moderate Assistance 7=Complete IndependenceIRFPAI Quality Coding Scale 6 Independent with activity with or without an assistive device 5 Patient requires set up or clean up by helper. Patient completes activity by themselves 4 Supervision or touching assist (CGA). [place] provide cues , steadying assist 3 The helper provides less than half the effort to complete the activity 2 The helper provides more than half the effort to complete the activity 1 Dependent. The helper does all the effort to complete an activity 7 Patient refused to complete or attempt activity 9 The patient did not perform the activity before the current illness or injury 88 Not attempted due to Medical conditions or safety concerns Transfers (B, C, W/C) (FIM): 6 Scootin Roll Left to Right (QC): 6 Supine to/from Sit: 6 Sit to/from Stand: 6 Sit to Lying (QC): 6 Sit to Stand (QC): 6 Weight Bearing Right Lower Extremity: Right Weight Bearing/Tolerated Left Lower Extremity: Left Weight Bearing/Tolerated Gait Training Does the Patient Walk?: Yes Gait (FIM): 6 Distance (FIM): 3=150 ft Distance: 300' x 2 Walk 50 ft with 2 Turns(QC): 6 Walk 150 ft (QC): 6 Gait Level of Assist: 6 Gait Assistive Device: FWW Patient fatigues quickly from inactivity PLOF. Assessment Patient returned to bed due to fatigue. PT encouraged patient to remain up and perform exercises, however, patient declined. She will transfer to [place] next week. PT Custodial Goals Air Intelligence Specialist Goals PT Air Intelligence Specialist Goals Time Frame: Jun 08, 2017 Transfers (B,C,W/C) (FIM): 6 Sit to Lying (QC): 6 (met 05/31/17) Lying-Sitting on Side/Bed(QC): 6 (met 05/31/17) Sit to Stand (QC): 6 Rollin (met 05/31/17) Chair/Ihz-pm-Diaaj Xfer(QC): 6 Does the Patient Walk: Yes Gait (FIM): 6 (met 05/31/17) Gait distance (FIM): 3=150 ft Distance: 150' Walk 50ft with 2 Turns (QC): 6 (met 05/31/17) Walk 150 ft (QC): 6 (met 05/31/17) Gait Level of Assist: 6 (met 05/31/17) Gait Assistive Device: FWW PT Plan Treatment/Plan Treatment Plan: Continue Plan of Care Treatment Plan: Education, Functional Activity Issac, Functional Strength, Gait , Safety, Therapeutic Exercise Treatment Duration: Jun 08, 2017 Frequency: 6 times per week Estimated Hrs Per Day: .5 hour per day (or PRN) Patient and/or Family Agrees t: Yes Time/GCodes Time In: 900 Time Out: 915 Total Billed Treatment Time: 15 Total Billed Treatment 1 visit FA 15 min CECILIA DE OLIVEIRA PT Jun 01, 2017 09:44
[2017-06-01] MEDS ORDERED: KCL 8 MEQ (MICRO K) TABLET PO NR (11:15)
--- NOTE | 2017-06-01 11:15 | Progress Note (SOAP) ---
Subjective Date Seen by Provider: Jun 01, 2017 Time Seen by Provider: 11:13 Subjective/Events-last exam Fwup early DKA with dehydration and acute renal failure, diarrhea, weakness, left hip wound seroma vs hematoma vs abscess, UTI, hypertension, diabetes mellitus--insulin requiring. Diarrhea better. Left hip wound not as tender. Objective Exam Vital Signs Date Time Temp Pulse Resp B/P (MAP) Pulse Ox O2 Delivery O2 Flow Rate FiO2 06/01/17 08:40 97.4 06/01/17 08:00 97.4 73 18 168/72 (104) 100 Room Air 06/01/17 07:00 76 06/01/17 04:33 98.9 83 17 129/66 (87) 96 Room Air 06/01/17 01:00 61 06/01/17 00:15 98.5 67 17 132/76 (94) 98 Room Air 05/31/17 20:00 97.5 74 18 144/62 (89) 98 Room Air 05/31/17 19:00 69 05/31/17 16:00 97.0 62 16 128/60 (82) 99 Room Air 05/31/17 13:00 84 05/31/17 12:00 97.8 82 18 98 Room Air I & O 06/01/17 07:00 Intake Total 2240 ml Output Total 2550 ml Balance -310 ml Capillary Refill : General Appearance: No Apparent Distress Respiratory: Lungs Clear Cardiovascular: Regular Rate, Rhythm Gastrointestinal: normal bowel sounds, non tender, soft Extremity: Non Tender, No Calf Tenderness Neurologic/Psychiatric: Alert, Oriented x3 Skin: Erythema (left hip wound less tender and red) Results Lab Laboratory Tests 05/31/17 16:13: Glucometer 163H 05/31/17 21:05: Glucometer 396H 06/01/17 05:44: White Blood Count 5.2, Red Blood Count 3.20L, Hemoglobin 9.2L, Hematocrit 28L, Mean Corpuscular Volume 88, Mean Corpuscular Hemoglobin 29, Mean Corpuscular Hemoglobin Concent 33, Red Cell Distribution Width 15.1H, Platelet Count 339, Mean Platelet Volume 9.7, Neutrophils (%) (Auto) 59, Lymphocytes (%) (Auto) 24, Monocytes (%) (Auto) 14H, Eosinophils (%) (Auto) 4, Basophils (%) (Auto) 0, Neutrophils # (Auto) 3.1, Lymphocytes # (Auto) 1.3, Monocytes # (Auto) 0.7, Eosinophils # (Auto) 0.2, Basophils # (Auto) 0.0, Prothrombin Time 22.7H, INR Comment 2.0H, Sodium Level 142, Potassium Level 3.4L, Chloride Level 116H, Carbon Dioxide Level 20L, Anion Gap 6, Blood Urea Nitrogen 7, Creatinine 0.90, Estimat Glomerular Filtration Rate > 60, BUN/Creatinine Ratio 8, Glucose Level 56*L, Calcium Level 8.2L, Total Bilirubin 0.3, Aspartate Amino Transf (AST/SGOT ) 13, Alanine Aminotransferase (ALT/SGPT) 13, Alkaline Phosphatase 150H, Total Protein 5.2L, Albumin 2.7L 06/01/17 06:52: Glucometer 96 06/01/17 11:04: Glucometer 401*H Microbiology 05/29/17 C. difficile GDH Antigen & Toxins - Final, Complete 05/29/17 Urine Culture - Final, Complete Staph, Coag Neg (SYSTEM INTEGRATION ENGINEER) Presumptive Martha Albicans Assessment/Plan Assessment/Plan Assess & Plan/Chief Complaint 1. Early DKA with Acute Dehydration and Renal Failure--improved with hydration 2. Diarrhea--improved 3. UTI--DC bactrim 4. Left hip seroma vs hematoma vs abscess--will cont Vancomycin as wound is less tender, red and indurated since starting 5. Hypertension--home meds restarted 6. Diabetes mellitus--insulin requiring--continue levemir and SSI 7. Weakness--PT/OT started 8. Elevated PT/INR--INR improved, will increase coumdadin to 3mg and repeat PT/ INR in 2 days 9. Hypokalemia--replace potassium Clinical Quality Measures Admission Status Admission Dx 1. Acute Renal Failure/Dehydration--hydrate and monitor BUN/Cr 2. Early DKA--hydrate and monitor BS and electrolytes 3. Diarrhea--Check stool studies including C. Diff 4. UTI--start Bactrim and Culture urine 5. Left hip wound redness with induration--cover with Bactrim and consult surgery to assess wound 6. Hypertension--resume home medications 7. Weakness--multifactorial 8. Elevated PT/INR--hold coumadin, hydrate and monitor PT/INR DVT/VTE Risk/Contraindication: Risk Factor Score Per Nursin RFS Level Per Nursing on Admit: 4+=Very High SHAKEEL BRUCE DO Jun 01, 2017 11:15 am
[2017-06-01 12:00] VITALS: BP 154/68
[2017-06-01] MEDS ORDERED: TROUGH ORDER-PHARMACY XX NR (13:00)
--- NOTE | 2017-06-01 13:48 | Occupational Ther Daily Note ---
OT Current Status-Daily Note Subjective Pt in bed, states she is feeling better, agrees to treatment. Mental Status/Objective Functional [place] Measure 0=Not Assessed/NA 4=Minimal Assistance 1=Total Assistance 5=Supervision or Setup 2=Maximal Assistance 6=Modified [place] 3=Moderate Assistance 7=Complete [place] ADL-Treatment Functional [place] Measure 0=Not Assessed/NA 4=Minimal Assistance 1=Total Assistance 5=Supervision or Setup 2=Maximal Assistance 6=Modified [place] 3=Moderate Assistance 7=Complete IndependenceIRFPAI Quality Coding Scale 6 Independent with activity with or without an assistive device 5 Patient requires set up or clean up by helper. Patient completes activity by themselves 4 Supervision or touching assist (CGA). [place] provide cues , steadying assist 3 The helper provides less than half the effort to complete the activity 2 The helper provides more than half the effort to complete the activity 1 Dependent. The helper does all the effort to complete an activity 7 Patient refused to complete or attempt activity 9 The patient did not perform the activity before the current illness or injury 88 Not attempted due to Medical conditions or safety concerns Other Treatment Pt declined ADLs, states she would like to work on bed mobility. Pt able to roll left and right with modified independence using bed rails. Supine to sit with modified independence using bed rails. Pt completed bilateral UE exercises while seated EOB to increase strength needed for functional tasks. Pt performed shoulder flexion, abduction, biceps curls, and triceps extension exercises x15 reps with moderate resistance (red) theraband. Rest breaks between exercises. Pt 's meal tray arrived. Pt sitting EOB with needs met, eating lunch after session. OT Short Term Goals Short Term Goals 1=Demonstrate adherence to instructed precautions during ADL tasks. 2=Patient will verbalize/demonstrate understanding of assistive devices/ modifications for ADL. 3=Patient will improve strength/tolerance for activity to enable patient to perform ADL's. OT Alf Goals Commercial Real Estate Agent Goals Time Frame: Jun 12, 2017 Eating (FIM): 6 Eating (QC): 6 Groomin Oral Hygiene (QC): 6 Bathing(FIM): 5 Upper Body Dressing(FIM): 6 Lower Body Dressing(FIM): 5 Toileting(FIM): 6 Toileting Hygiene (QC): 6 Toilet/Commode Transfer(FIM): 6 Toilet/Commode Transfer (QC): 6 Shower Transfer(FIM): 5 Additional Goals: 1-Demonstrate ADL Tasks, 2-Verbalize Understanding, 3- ImproveStrength/Issac 1=Demonstrate adherence to instructed precautions during ADL tasks. 2=Patient will verbalize/demonstrate understanding of assistive devices/ modifications for ADL. 3=Patient will improve strength/tolerance for activity to enable patient to perform ADL's. OT Education/Plan Problem List/Assessment Pt to benefit from skilled OT intervention for ADL training, transfers, strengthening, and safety education to increase level of independence and allow safe discharge plan. Discharge Recommendations Plan/Recommendations: Continue POC Treatment Plan/Plan of Care Patient would benefit from OT for education, treatment and training to promote independence in ADL's, mobility, safety and/or upper extremity function for ADL' s. Plan of Care: ADL Retraining, Functional Mobility, UE Funct Exercise/Act Treatment Duration: Jun 12, 2017 Frequency: 5 times per week Estimated Hrs Per Day: .25 hour per day Rehab Potential: Good Time/GCodes Start Time: 11:12 Stop Time: 11:33 Total Time Billed (hr/min): 21 Billed Treatment Time 1 visit, EX(21minutes) BRIGHT SANTIAGO OT Jun 01, 2017 13:47
[2017-06-01] MEDS: VANCOMYCIN 1250 MG/NS 250 ML IVPB IV SCH ×2 (13:53)
[2017-06-01 15:35] VITALS: BP 145/67
[2017-06-01] MEDS: KCL 8 MEQ (MICRO K) TABLET PO SCH (17:19)
[2017-06-01] MEDS: warFARin 3 MG (COUMADIN) TAB PO SCH (17:19)
[2017-06-01 19:25] VITALS: BP 163/82
[2017-06-01] MEDS: ATORVASTATIN 10 MG (LIPITOR) TABLET PO SCH (20:49)
[2017-06-01] MEDS: inSUlin DETERMIR 1 UNIT/0.01 ML (LEVEMIR) CHARGE PER UNIT SQ SCH (20:51)
[2017-06-02] VITALS: BP 170/74
[2017-06-02 03:35] VITALS: BP 174/79
[2017-06-02] MEDS: inSUlin (REGULAR) HUMAN 1 UNIT/0.01 ML (CHARGE PER UNIT) SC SCH ×3 (05:54→16:39)
[2017-06-02] MEDS: KCL 8 MEQ (MICRO K) TABLET PO SCH ×2 (06:27→16:39)
[2017-06-02] MEDS: PANTOPRAZOLE 40 MG (PROTONIX) TAB PO SCH (06:27)
[2017-06-02 08:00] VITALS: BP 147/68
[2017-06-02] MEDS: COLESTIPOL 1 GM (COLESTID) TAB PO SCH ×2 (08:50→20:17)
[2017-06-02] MEDS: fluCOnazole (DIFLUCAN) 100 MG TAB PO SCH (08:51)
[2017-06-02] MEDS: DICLOFENAC 1% GEL 100 GM (VOLTAREN) TUBE TOP SCH ×4 (08:51→20:17)
[2017-06-02] MEDS: CARVEDILOL 12.5 MG (COREG) TABLET PO SCH ×2 (08:51→20:17)
--- NOTE | 2017-06-02 08:53 | Physical Therapy Daily Note ---
PT Daily Note-Current Subjective States that she is doing well. Pain Numeric Pain Scale: 0-No Pain Transfers Functional [place] Measure 0=Not Assessed/NA 4=Minimal Assistance 1=Total Assistance 5=Supervision or Setup 2=Maximal Assistance 6=Modified [place] 3=Moderate Assistance 7=Complete IndependenceIRFPAI Quality Coding Scale 6 Independent with activity with or without an assistive device 5 Patient requires set up or clean up by helper. Patient completes activity by themselves 4 Supervision or touching assist (CGA). [place] provide cues , steadying assist 3 The helper provides less than half the effort to complete the activity 2 The helper provides more than half the effort to complete the activity 1 Dependent. The helper does all the effort to complete an activity 7 Patient refused to complete or attempt activity 9 The patient did not perform the activity before the current illness or injury 88 Not attempted due to Medical conditions or safety concerns Transfers (B, C, W/C) (FIM): 5 Scootin Rollin Supine to/from Sit: 5 Sit to/from Stand: 5 Weight Bearing Right Lower Extremity: Right Weight Bearing/Tolerated Left Lower Extremity: Left Weight Bearing/Tolerated Gait Training Gait (FIM): 5 Distance (FIM): 3=150 ft Distance: 150' x 2 Gait Level of Assist: 5 Gait Persons Needed: 1 Gait Assistive Device: FWW Assessment Current Status: Excellent Progress Patient had some SOB during gait. PT Virtualization Architect Goals [facility] Goals PT Virtualization Architect Goals Time Frame: Jun 08, 2017 Transfers (B,C,W/C) (FIM): 6 Gait (FIM): 6 (met 05/31/18) Gait distance (FIM): 3=150 ft Distance: 150' Gait Level of Assist: 6 (met 05/31/17) Gait Assistive Device: FWW PT Plan Treatment/Plan Treatment Plan: Continue Plan of Care Treatment Plan: Education, Functional Activity Issac, Functional Strength, Gait , Safety, Therapeutic Exercise Treatment Duration: Jun 08, 2017 Frequency: 6 times per week Estimated Hrs Per Day: .5 hour per day (or PRN) Patient and/or Family Agrees t: Yes Time/GCodes Time In: 0830 Time Out: 0845 Total Billed Treatment Time: 15 Total Billed Treatment 1, GT x 15 DIMAS KUMAR PT Jun 02, 2017 08:53
--- NOTE | 2017-06-02 11:23 | Progress Note-Hospitalist ---
Subjective HPI/CC On Admission Date Seen by Provider: Jun 02, 2017 Time Seen by Provider: 10:15 Patient is familiar to me from prior admission Denies any significant pain issues Has been up and around and ambulating overall fairly well Reviewed labs and noted bicarbonate of 17 so we'll monitor closely considering she had DKA on 05/29/17 Vancomycin maintained and tolerated well Check meds and labs Check consultation reports Checked imaging scans Objective Exam Vital Signs Vital Signs Date Time Temp Pulse Resp B/P (MAP) Pulse Ox O2 Delivery O2 Flow Rate FiO2 05/28/17 17:30 97.0 93 18 164/84 (110) 100 Room Air Capillary Refill : General Appearance: No Apparent Distress, WD/WN, Chronically ill Neck: Full Range of Motion, Normal Inspection Respiratory: Chest Non Tender, Lungs Clear, Normal Breath Sounds, No Accessory Muscle Use, No Respiratory Distress Cardiovascular: Regular Rate, Rhythm, No Edema, No Gallop Neurologic/Psychiatric: Alert, Oriented x3, No Motor/Sensory Deficits, Normal Mood/Affect, dry cleaner presser II-XII Norm as Tested Results/Procedures Lab Laboratory Tests 06/02/17 11:50 Patient resulted labs reviewed. Assessment/Plan Assessment and Plan Assess & Plan/Chief Complaint Assessment per PCP Dr Russo: 1. Acute Renal Failure/Dehydration--hydrate and monitor BUN/Cr 2. Early DKA--hydrate and monitor BS and electrolytes 3. Diarrhea--improved 4. UTI--start Bactrim and Culture urine 5. Left hip wound redness with induration--vancomycin maintained 6. Hypertension--resume home medications 7. Weakness--multifactorial 8. Elevated PT/INR--hold coumadin, hydrate and monitor PT/INR Plan: Check labs in a.m. Monitor bicarbonate closely Insulin regimen Vancomycin Clinical Quality Measures DVT/VTE Risk/Contraindication: Risk Factor Score Per Nursin RFS Level Per Nursing on Admit: 4+=Very High PERICO ALVA DO Jun 02, 2017 11:23
[2017-06-02 11:56] LABS: BASOPHILS % (AUTO) 0 % (0-10); EOSINOPHILS # (AUTO) 0.1 10^3/uL (0.0-0.3); EOSINOPHILS % (AUTO) 2 % (0-10); HEMATOCRIT 31 % (35-52); HEMOGLOBIN 9.9 G/DL (11.5-16.0); LYMPHOCYTES # (AUTO) 1.1 X 10^3 (1.0-4.0); LYMPHOCYTES % (AUTO) 22 % (12-44); MEAN CORPUSCULAR HEMOGLOBIN 29 PG (25-34); MEAN CORPUSCULAR HGB CONC 33 G/DL (32-36); MEAN CORPUSCULAR VOLUME 89 FL (80-99); MEAN PLATELET VOLUME 9.5 FL (7.4-10.4); MONOCYTES # (AUTO) 0.4 X 10^3 (0.0-1.0); MONOCYTES % (AUTO) 8 % (0-12); NEUTROPHILS # (AUTO) 3.6 X 10^3 (1.8-7.8); NEUTROPHILS % (AUTO) 68 % (42-75); PLATELET COUNT 332 10^3/uL (130-400); RED BLOOD COUNT 3.43 10^6/uL (4.35-5.85); RED CELL DISTRIBUTION WIDTH 15.7 % (10.0-14.5); WHITE BLOOD COUNT 5.3 10^3/uL (4.3-11.0)
[2017-06-02 12:00] VITALS: BP 128/59
[2017-06-02 12:15] LABS: ALBUMIN 2.9 GM/DL (3.2-4.5); BILIRUBIN,TOTAL 0.4 MG/DL (0.1-1.0); CALCIUM 8.2 MG/DL (8.5-10.1); CREATININE SERUM 1.17 MG/DL (0.60-1.30); TOTAL PROTEIN 5.6 GM/DL (6.4-8.2)
[2017-06-02] MEDS: VANCOMYCIN 1250 MG/NS 250 ML IVPB IV SCH ×2 (14:16)
[2017-06-02 16:20] VITALS: BP 174/74
[2017-06-02] MEDS: warFARin 3 MG (COUMADIN) TAB PO SCH (16:39)
[2017-06-02] MEDS: ATORVASTATIN 10 MG (LIPITOR) TABLET PO SCH (20:17)
[2017-06-02] MEDS: inSUlin ASPART (NovoLOG) 1 UNIT/0.01 ML (CHARGE PER UNIT) SC SCH (20:41)
[2017-06-02] MEDS: inSUlin DETERMIR 1 UNIT/0.01 ML (LEVEMIR) CHARGE PER UNIT SQ SCH (21:00)
[2017-06-03] VITALS: BP 146/74
[2017-06-03 04:51] LABS: BASOPHILS % (AUTO) 1 % (0-10); EOSINOPHILS # (AUTO) 0.1 10^3/uL (0.0-0.3); EOSINOPHILS % (AUTO) 2 % (0-10); HEMATOCRIT 28 % (35-52); HEMOGLOBIN 8.9 G/DL (11.5-16.0); LYMPHOCYTES # (AUTO) 1.1 X 10^3 (1.0-4.0); LYMPHOCYTES % (AUTO) 23 % (12-44); MEAN CORPUSCULAR HEMOGLOBIN 29 PG (25-34); MEAN CORPUSCULAR HGB CONC 32 G/DL (32-36); MEAN CORPUSCULAR VOLUME 91 FL (80-99); MEAN PLATELET VOLUME 10.1 FL (7.4-10.4); MONOCYTES # (AUTO) 0.5 X 10^3 (0.0-1.0); MONOCYTES % (AUTO) 10 % (0-12); NEUTROPHILS # (AUTO) 3.2 X 10^3 (1.8-7.8); NEUTROPHILS % (AUTO) 64 % (42-75); PLATELET COUNT 259 10^3/uL (130-400); RED CELL DISTRIBUTION WIDTH 15.5 % (10.0-14.5)
[2017-06-03 05:05] LABS: INR 1.7 (0.8-1.4); PROTHROMBIN TIME PATIENT 19.8 SEC (12.2-14.7)
[2017-06-03 05:10] LABS: ALBUMIN 2.8 GM/DL (3.2-4.5); BILIRUBIN,TOTAL 0.3 MG/DL (0.1-1.0); CALCIUM 8.1 MG/DL (8.5-10.1); CREATININE SERUM 1.03 MG/DL (0.60-1.30); TOTAL PROTEIN 5.3 GM/DL (6.4-8.2)
[2017-06-03] MEDS: PANTOPRAZOLE 40 MG (PROTONIX) TAB PO SCH (06:12)
[2017-06-03] MEDS: KCL 8 MEQ (MICRO K) TABLET PO SCH ×2 (06:12→16:52)
[2017-06-03] MEDS: inSUlin ASPART (NovoLOG) 1 UNIT/0.01 ML (CHARGE PER UNIT) SC SCH ×4 (06:13→20:59)
[2017-06-03 08:00] VITALS: BP 146/69
[2017-06-03] MEDS: CARVEDILOL 12.5 MG (COREG) TABLET PO SCH ×2 (08:52→20:59)
[2017-06-03] MEDS: COLESTIPOL 1 GM (COLESTID) TAB PO SCH ×2 (08:52→20:58)
[2017-06-03] MEDS: fluCOnazole (DIFLUCAN) 100 MG TAB PO SCH (08:52)
[2017-06-03] MEDS: DICLOFENAC 1% GEL 100 GM (VOLTAREN) TUBE TOP SCH ×4 (08:53→20:59)
--- NOTE | 2017-06-03 12:29 | Progress Note-Hospitalist ---
Subjective HPI/CC On Admission Date Seen by Provider: Jun 03, 2017 Time Seen by Provider: 11:30 Patient is familiar to me from prior admission Denies any significant pain issues Has been up and around and ambulating overall fairly well Reviewed labs and noted bicarbonate of 17 so we'll monitor closely considering she had DKA on 05/29/17 Vancomycin maintained and tolerated well Check meds and labs Check consultation reports Checked imaging scans Subjective/Events-last exam Patient doing the same and doing well Denies any pain Bowels are moving Eating and drinking Nursing facility tomorrow Review of Systems Musculoskeletal: leg pain Objective Exam Vital Signs Vital Signs Date Time Temp Pulse Resp B/P (MAP) Pulse Ox O2 Delivery O2 Flow Rate FiO2 05/28/17 17:30 97.0 93 18 164/84 (110) 100 Room Air Capillary Refill : General Appearance: No Apparent Distress, WD/WN, Chronically ill HEENT: PERRL/EOMI Respiratory: Lungs Clear, Normal Breath Sounds Cardiovascular: Regular Rate, Rhythm, No Edema Neurologic/Psychiatric: Alert, Oriented x3, No Motor/Sensory Deficits, Normal Mood/Affect, drug abuse counselor II-XII Norm as Tested Results/Procedures Lab Laboratory Tests 06/03/17 04:05 Patient resulted labs reviewed. Assessment/Plan Assessment and Plan Assess & Plan/Chief Complaint Assessment per PCP Dr Russo: 1. Acute Renal Failure/Dehydration--hydrate and monitor BUN/Cr 2. Early DKA--hydrate and monitor BS and electrolytes 3. Diarrhea--improved 4. UTI--start Bactrim and Culture urine 5. Left hip wound redness with induration--vancomycin maintained 6. Hypertension--resume home medications 7. Weakness--multifactorial 8. Elevated PT/INR--hold coumadin, hydrate and monitor PT/INR Plan: Increase Levemir from 10 to 30 units at night Insulin regimen Vancomycin Clinical Quality Measures DVT/VTE Risk/Contraindication: Risk Factor Score Per Nursin RFS Level Per Nursing on Admit: 4+=Very High PERICO ALVA DO Jun 03, 2017 12:29
[2017-06-03] MEDS: VANCOMYCIN 1250 MG/NS 250 ML IVPB IV SCH ×2 (14:10)
[2017-06-03 16:00] VITALS: BP 149/70
[2017-06-03] MEDS: warFARin 3 MG (COUMADIN) TAB PO SCH (16:53)
[2017-06-03] MEDS: ATORVASTATIN 10 MG (LIPITOR) TABLET PO SCH (20:58)
[2017-06-03] MEDS ORDERED: inSUlin DETERMIR 1 UNIT/0.01 ML (LEVEMIR) CHARGE PER UNIT SQ SCH (21:00)
[2017-06-04] VITALS: BP 159/75
[2017-06-04] MEDS: ACETAMINOPHEN 500 MG TAB (TYLENOL) PO PRN (02:20)
[2017-06-04] MEDS: PANTOPRAZOLE 40 MG (PROTONIX) TAB PO SCH (06:05)
[2017-06-04] MEDS: inSUlin ASPART (NovoLOG) 1 UNIT/0.01 ML (CHARGE PER UNIT) SC SCH ×2 (06:05→11:42)
[2017-06-04] MEDS: KCL 8 MEQ (MICRO K) TABLET PO SCH (06:05)
[2017-06-04 08:00] VITALS: BP 136/60
[2017-06-04] MEDS: DICLOFENAC 1% GEL 100 GM (VOLTAREN) TUBE TOP SCH ×2 (10:01→13:27)
[2017-06-04] MEDS: fluCOnazole (DIFLUCAN) 100 MG TAB PO SCH (10:01)
[2017-06-04] MEDS: COLESTIPOL 1 GM (COLESTID) TAB PO SCH (10:01)
[2017-06-04] MEDS: CARVEDILOL 12.5 MG (COREG) TABLET PO SCH (10:01)
[2017-06-04] MEDS ORDERED: AMLO5TAB2 PO (12:49)
[2017-06-04] MEDS ORDERED: NF-COLE1GM PO (12:49)
[2017-06-04] MEDS ORDERED: FLUC100T6 PO (12:49)
[2017-06-04] MEDS ORDERED: SULF1TAB35 PO (12:53)
--- NOTE | 2017-06-04 12:53 | Discharge Inst-Skilled Nursing ---
Discharge Inst-Skilled NF Patient Instructions Patient Problems: Left hip fracture Insulin Requiring Diabetes Mellitus Hypertension Diarrhea Left hip wound hematoma Weakness Goal: Increase strength to get back home Consult/Follow Up/Orders Follow Up Appt.: 3 weeks Skilled NF Admit to: Certification (SNF) I certify that SNF services are required to be given on an inpatient basis because of the above named patient's need for halfway care on a continuing basis for the conditions(s) for which he/she was receiving inpatient hospital services prior to his/her transfer to the SNF. Correction Facility Order: Nursing Services, Loss Prevention Specialist-Evaluate & Treat, Physical Therapy-Evaluate & Treat Discharge Diet: ADA Diet, Cardiac Diet Daily Activity as Tolerated: Yes New & Resume Previous Orders New & Resume Previous Orders CBC, CMP and PT/INR in 1 week Accuchecks AC Leyla Russo Jun 04, 2017 12:50 Pneu Vac Indicated: Yes LEYLA RUSSO DO Jun 04, 2017 12:52 pm
--- NOTE | 2017-06-04 13:09 | Therapy Team Discharge Summary ---
Therapy Discharge Summary Discharge Recommendations Date of Discharge Therapy D/C Recommendations: 24 hr Supervision Physical Therapy Patient is currently at [facility] with all gross motor skills and ambulate 300' with FWW without difficulty. Patient was seen by skilled PT to address functional strength and mobility. Patient has attained all functional goals and will transfer to [facility] on this date for continued care. Occupational Therapy Decreased Activ Tolerance, Decreased UE Strength, Impaired I ADL's, Impaired Self-Care Skills PT Chcf Goals Chcf Goals PT Chcf Goals Time Frame: Jun 08, 2017 Transfers (B,C,W/C) (FIM): 6 (met 06/02/15) Sit to Lying (QC): 6 (met 05/31/17) Lying-Sitting on Side/Bed(QC): 6 (met 05/31/17) Sit to Stand (QC): 6 (mt 06/01/17) Rollin (met 06/01/17) Chair/Vdo-ob-Kymyo Xfer(QC): 6 (met 06/01/17) Does the Patient Walk: Yes Gait (FIM): 6 (met 05/31/17) Gait distance (FIM): 3=150 ft Distance: 150' Walk 50ft with 2 Turns (QC): 6 (met 05/31/17) Walk 150 ft (QC): 6 (met 05/31/17) Gait Level of Assist: 6 (met 05/31/17) Gait Assistive Device: FWW OT Chcf Goals Chcf Goals Time Frame: Jun 12, 2017 Eating (FIM): 6 Eating (QC): 6 Groomin Oral Hygiene (QC): 6 Bathing(FIM): 5 Upper Body Dressing(FIM): 6 Lower Body Dressing(FIM): 5 Toileting(FIM): 6 Toileting Hygiene (QC): 6 Toilet/Commode Transfer(FIM): 6 Toilet/Commode Transfer (QC): 6 Shower Transfer(FIM): 5 Additional Goals: 1-Demonstrate ADL Tasks, 2-Verbalize Understanding, 3- ImproveStrength/Issac 1=Demonstrate adherence to instructed precautions during ADL tasks. 2=Patient will verbalize/demonstrate understanding of assistive devices/ modifications for ADL. 3=Patient will improve strength/tolerance for activity to enable patient to perform ADL's. CECILIA DE OLIVEIRA PT Jun 04, 2017 13:09
--- NOTE | 2017-06-04 14:08 | Occ Therapy Progress Note ---
Therapy Progress Note OT checked on pt. this date. Pt. states that she is discharging today, and has already had a shower. Pt. is dressed and waiting for her ride. All needs met in room. Pt. discharging to [facility] in [facility]. 1, visit 1330 NASEEM BURK OT Jun 04, 2017 14:08
--- NOTE | 2017-06-04 14:11 | Therapy Team Discharge Summary ---
Therapy Discharge Summary Discharge Recommendations Date of Discharge Therapy D/C Recommendations: 24 hr Supervision Occupational Therapy Decreased Activ Tolerance, Decreased UE Strength, Impaired I ADL's, Impaired Self-Care Skills PT Mcfp Goals Fund Accounting Manager Goals PT Fund Accounting Manager Goals Time Frame: Jun 08, 2017 Transfers (B,C,W/C) (FIM): 6 (met 06/02/15) Sit to Lying (QC): 6 (met 05/31/17) Lying-Sitting on Side/Bed(QC): 6 (met 05/31/17) Sit to Stand (QC): 6 (mt 06/01/17) Rollin (met 06/01/17) Chair/Qjc-ye-Bfjfe Xfer(QC): 6 (met 06/01/17) Does the Patient Walk: Yes Gait (FIM): 6 (met 05/31/17) Gait distance (FIM): 3=150 ft Distance: 150' Walk 50ft with 2 Turns (QC): 6 (met 05/31/17) Walk 150 ft (QC): 6 (met 05/31/17) Gait Level of Assist: 6 (met 05/31/17) Gait Assistive Device: FWW OT Fund Accounting Manager Goals Mcfp Goals Time Frame: Jun 12, 2017 Eating (FIM): 6 (met) Eating (QC): 6 (met) Groomin (not met) Oral Hygiene (QC): 6 (not met) Bathing(FIM): 5 (not met) Upper Body Dressing(FIM): 6 (not met) Lower Body Dressing(FIM): 5 (not met) Toileting(FIM): 6 (not met) Toileting Hygiene (QC): 6 (not met) Toilet/Commode Transfer(FIM): 6 (not met) Toilet/Commode Transfer (QC): 6 (not met) Shower Transfer(FIM): 5 (met) Pt. had either already performed ADLS with nursing, or declined practicing them with OT. Goals unable to be addressed unless it was toileting and transfers. Additional Goals: 1-Demonstrate ADL Tasks, 2-Verbalize Understanding, 3- ImproveStrength/Issac 1=Demonstrate adherence to instructed precautions during ADL tasks. 2=Patient will verbalize/demonstrate understanding of assistive devices/ modifications for ADL. 3=Patient will improve strength/tolerance for activity to enable patient to perform ADL's. NASEEM BURK OT Jun 04, 2017 14:11
[2017-06-04 15:58] VITALS: BP 136/60
== END 2017-06-04 16:14 | DRG 682 ==
LOC: 4TH 16:51
PROVIDERS: ADMIT Family Medicine; ATTEND Family Medicine
DX: N17.9 Acute kidney failure, unspecified (principal); E11.10 Type 2 diabetes mellitus with ketoacidosis without coma; E86.0 Dehydration; R19.7 Diarrhea, unspecified; N39.0 Urinary tract infection, site not specified; I10 Essential (primary) hypertension; R23.4 Changes in skin texture; R53.1 Weakness; R79.1 Abnormal coagulation profile; M85.80 Other specified disorders of bone density and structure, unspecified site; S72.142D Displaced intertrochanteric fracture of left femur, subsequent encounter for closed fracture with routine healing; E87.6 Hypokalemia; Z86.718 Personal history of other venous thrombosis and embolism; Z86.73 Personal history of transient ischemic attack (TIA), and cerebral infarction without residual deficits; Z85.41 Personal history of malignant neoplasm of cervix uteri; Z79.4 Long term (current) use of insulin
CPT/HCPCS: 36415; 73552; 80048; 80053; 80202; 81000; 82962; 85025; 85610; 87088; 87324; 87449

== ENCOUNTER 2017-08-23 17:38 | Inpatient (IN) | payer MEDICARE, MEDICAID ==
[~2017-08-23] VITALS: Ht 157.5 cm; Wt 78.0 kg
[~2017-08-23 17:38] MED LIST changes: +AMLO5TAB2 PO; -CITA20TA7 PO; +CITA20TA9 PO; +DICL100G31 TOP; +DONE5TAB30 PO; +FLUC100T6 PO; +INSU100V SC; -METF1000 PO; +METF10002 PO; +NF-COLE1GM PO; +SULF1TAB35 PO
[2017-08-23] MEDS ORDERED: PATIENT MAY USE OWN MEDS, ALL PO SCH (19:45)
[2017-08-23] MEDS ORDERED: ACETAMINOPHEN 325 MG TABLET PO PRN (19:45)
[2017-08-23] MEDS ORDERED: ONDANSETRON 4 MG/2 ML (SDV) Z0FRAN IV PRN (19:45)
[2017-08-23] MEDS ORDERED: ENOXAPARIN 40 MG/0.4 ML (LOVENOX) SYR SC SCH (20:00)
[2017-08-23 20:03] VITALS: BP 199/76
--- NOTE | 2017-08-23 20:13 | History & Physicial ---
History of Present Illness History of Present Illness Reason for visit/HPI This is a 67 year old female who sustained a hip fracture at the end of April of this year. She underwent repair by Dr. Ventura and spent about 2weeks in acute rehab followed by about a month stay in a long-term facility. She has been at home with home health since her discharge from the long-term facility. The home health nurse was out to assess the patient today and found her left hip wound to be draining with surrounding redness and fluctuance. The patient does admit that she started noticing drainage on her bed sheets and that the wound felt wet starting at the beginning of this week. The patient went to the urgent care at [facility] and was found to have a left hip abscess. She was transferred to our facility for further treatment of her abscess which will likely need surgical debridement. Date of Admission Aug 23, 2017 at 19:30 Date Seen by Provider: Aug 23, 2017 Time Seen by Provider: 20:06 I consulted on this patient on 08/23/17 20:05 Attending Physician Leyla Russo DO Admitting Physician Leyla Russo DO Consult Allergies and Home Medications Allergies Coded Allergies: Penicillins (Verified Allergy, Intermediate, HIVES, 05/28/17) hydrocodone (Verified Adverse Reaction, Unknown, VOMITING, 05/28/17) Home Medications Acetaminophen 500 Mg Tablet, 500-1,000 MG PO Q6H PRN for PAIN-MILD, (Reported) TAKES 1-2 (500MG) TABLETS Amlodipine Besylate 5 Mg Tablet, 5 MG PO DAILY Prescribed by: LEYLA RUSSO on 06/04/17 1249 Atorvastatin Calcium 10 Mg Tablet, 10 MG PO HS, (Reported) Carvedilol 25 Mg Tablet, 25 MG PO BID, (Reported) Citalopram Hydrobromide 20 Mg Tablet, 20 MG PO HS, (Reported) Colestipol HCl 1 Gm Tab, 1 GM PO BID Prescribed by: LEYLA RUSSO on 06/04/17 1249 Diclofenac Sodium 100 Gm Gel..gram., TOP QID, (Reported) Donepezil HCl 5 Mg Tablet, 5 MG PO HS, (Reported) Fluconazole 100 Mg Tablet, 100 MG PO DAILY Prescribed by: LEYLA RUSSO on 06/04/17 1249 Insulin Glargine,Hum.rec.anlog 100 Unit/1 Ml Vial, 22 UNITS SC HS, (Reported) Insulin Lispro 100 Unit/1 Ml Vial, SC AC, (Reported) Pantoprazole Sodium 40 Mg Tablet.dr, 40 MG PO DAILY, (Reported) Sulfamethoxazole/Trimethoprim 1 Each Tablet, 1 EACH PO BID Prescribed by: LEYLA RUSSO on 06/04/17 1253 Tramadol HCl 50 Mg Tablet, 50 MG PO TID PRN for PAIN-MODERATE, (Reported) Warfarin Sodium 4 Mg Tablet, 4 MG PO 1800, (Reported) Patient Home Medication List Home Medication List Reviewed: Yes Past Tgfqbxo-Fkyvgb-Vijtfh Hx Patient Social History 2nd Hand Smoke Exposure: No Recent Hopitalizations: No Immunizations Up To Date Date of Pneumonia Vaccine: Mar 17, 2009 Date of Influenza Vaccine: Mar 02, 2017 Seasonal Allergies Seasonal Allergies: No Surgeries Yes Bladder Surgery, Section, Gallbladder, Hysterectomy Respiratory No Cardiovascular Yes Deep Vein Thrombosis, Hypertension Neurological Yes (1997 ) Stroke Reproductive System Hx Reproductive Disorders: No Sexually Transmitted Disease: No Genitourinary Yes UTI-Chronic Gastrointestinal No Musculoskeletal Yes (OSTEOPENIA) Endocrine History of Endocrine Disorders: Yes Endocrine Disorders: Diabetes, Insulin dep HEENT History of HEENT Disorders: No Cancer Yes (1975-) Cervical Psychosocial History of Psychiatric Problem: No Integumentary History of Skin or Integumenta: No Blood Transfusions History of Blood Disorders: 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) Family Medical History Significant Family History: No Pertinent Family Hx Family Hx: Asthma 19 FATHER Diabetes mellitus 19 FATHER 19 MOTHER Hypertension 19 FATHER 19 MOTHER Constitutional: No no symptoms reported, No see HPI, No chills, No diaphoresis , No dizziness, No fever, No malaise, No weakness, No weight gain, No weight loss, No other EENTM: No see HPI, No no symptoms reported, No ear discharge, No hearing loss, No ear pain, No blurred vision, No double vision, No eye pain, No tearing, No vision loss, No dental problems, No hoarseness, No mouth pain, No mouth swelling , No epistaxis, No nose congestion, No nose pain, No throat pain, No throat swelling, No other Respiratory: No no symptoms reported, No see HPI, No cough, No dyspnea on exertion, No hemoptysis, No orthopnea, No phlegm, No short of breath, No stridor , No wheezing, No other Cardiovascular: No no symptoms reported, No see HPI, No chest pain, No edema, No Hx of Intervention, No palpitations, No syncope, No vascular heart diseas, No other Gastrointestinal: No RUQ, No LUQ, No RLQ, No LLQ, No no symptoms reported, No see HPI, No abdominal pain, No constipation, No diarrhea, No dysphagia, No hematemesis, No heartburn, No jaundice, No loss of appetite, No melena, No nausea, No vomiting, No other Genitourinary: No no symptoms reported, No see HPI, No decreased output, No discharge, No dysuria, No frequency, No hematuria, No hesitancy, No incontinence , No nocturia, No pain, No other Musculoskeletal: muscle weakness Skin: other (ongoing left hip wound) Psychiatric/Neurological: Other (mild memory loss) Physical Exam Vital Signs Capillary Refill : General Appearance: No Apparent Distress HEENT: Pharynx Normal Neck: Supple Respiratory: Lungs Clear Cardiovascular: Regular Rate, Rhythm, Systolic Murmur Gastrointestinal: Normal Bowel Sounds, Non Tender, Soft Rectal: Deferred Back: No CVA Tenderness Extremity: Non Tender, No Calf Tenderness, No Pedal Edema Neurologic/Psychiatric: Alert, Oriented x3 Skin: Other (left lateral hip with softball sized eschar area with drainage and surrounding erythema with increased warmth as well as fluctuance and tenderness) Assessment/Plan Assessment and Plan 1. Left hip abscess/cellulitis--admit for IV Vancomycin, IV rocephin and surgery evaluation for debridement 2. Diabetes mellitus-insulin requiring--Levemir with SSI 3. Hypertension--resume home medications Admission Diagnosis Admission Status: Inpatient Order (span 2 midnights) Reason for Inpatient Admission: Will require IV antibiotics and surgical debridement for wound LEYLA RUSSO DO Aug 23, 2017 20:13
[2017-08-23] MEDS ORDERED: IBUPROFEN TABLET 200 MG TAB PO PRN (20:15)
[2017-08-23] MEDS ORDERED: NS (IVPB) 50 ML ONE (20:37)
[2017-08-23] MEDS: cefTRIAXone INJECTION 1,000 MG in NS (IVPB) 50 ML IV SCH (20:44)
[2017-08-23] MEDS: NS IV 1000 ML 1,000 ML IV SCH (20:44)
[2017-08-23] MEDS: DONEPEZIL 5 MG (ARICEPT) TAB PO SCH (20:45)
[2017-08-23] MEDS: CARVEDILOL 12.5 MG (COREG) TABLET PO SCH (20:45)
[2017-08-23] MEDS: COLESTIPOL 1 GM (COLESTID) TAB PO SCH (20:46)
[2017-08-23] MEDS: inSUlin DETERMIR 1 UNIT/0.01 ML (LEVEMIR) CHARGE PER UNIT SQ SCH (21:21)
[2017-08-23] MEDS: inSUlin ASPART (NovoLOG) 1 UNIT/0.01 ML (CHARGE PER UNIT) SC SCH (21:21)
[2017-08-23] MEDS: CLINDAMYCIN 600 MG/50 ML IVPB 50 ML IV SCH (22:30)
[2017-08-24 00:56] VITALS: BP 143/63
[2017-08-24 04:03] VITALS: BP 137/64
[2017-08-24] MEDS: inSUlin ASPART (NovoLOG) 1 UNIT/0.01 ML (CHARGE PER UNIT) SC SCH ×4 (05:33→21:13)
[2017-08-24] MEDS: LACTOBACILLUS Acidoph/Bulgar (LACTINEX/FLORANEX) TAB PO SCH ×3 (06:12→17:14)
[2017-08-24] MEDS: CLINDAMYCIN 600 MG/50 ML IVPB 50 ML IV SCH ×3 (06:12→21:57)
[2017-08-24] MEDS: PANTOPRAZOLE 40 MG (PROTONIX) TAB PO SCH (06:12)
[2017-08-24 06:23] LABS: BASOPHILS % (AUTO) 0 % (0-10); EOSINOPHILS # (AUTO) 0.2 10^3/uL (0.0-0.3); EOSINOPHILS % (AUTO) 4 % (0-10); HEMATOCRIT 29 % (35-52); HEMOGLOBIN 9.1 G/DL (11.5-16.0); LYMPHOCYTES # (AUTO) 1.5 X 10^3 (1.0-4.0); LYMPHOCYTES % (AUTO) 31 % (12-44); MEAN CORPUSCULAR HEMOGLOBIN 27 PG (25-34); MEAN CORPUSCULAR HGB CONC 31 G/DL (32-36); MEAN CORPUSCULAR VOLUME 86 FL (80-99); MEAN PLATELET VOLUME 9.5 FL (7.4-10.4); MONOCYTES # (AUTO) 0.6 X 10^3 (0.0-1.0); MONOCYTES % (AUTO) 11 % (0-12); NEUTROPHILS # (AUTO) 2.6 X 10^3 (1.8-7.8); NEUTROPHILS % (AUTO) 53 % (42-75); PLATELET COUNT 395 10^3/uL (130-400); RED BLOOD COUNT 3.37 10^6/uL (4.35-5.85); RED CELL DISTRIBUTION WIDTH 13.8 % (10.0-14.5); WHITE BLOOD COUNT 4.8 10^3/uL (4.3-11.0)
[2017-08-24 06:30] LABS: INR 2.6 (0.8-1.4); PROTHROMBIN TIME PATIENT 28.1 SEC (12.2-14.7)
[2017-08-24 06:37] LABS: ALANINE AMINOTRANSFERASE 45 U/L (0-55); ALBUMIN 2.9 GM/DL (3.2-4.5); ALKALINE PHOSPHATASE 199 U/L (40-136); BILIRUBIN,TOTAL 0.2 MG/DL (0.1-1.0); BUN/CREATININE RATIO 14; CALCIUM 8.6 MG/DL (8.5-10.1); CARBON DIOXIDE 23 MMOL/L (21-32); CHLORIDE 108 MMOL/L (98-107); CREATININE SERUM 0.92 MG/DL (0.60-1.30); GFR ESTIMATED > 60; GLUCOSE 102 MG/DL (70-105); POTASSIUM 4.5 MMOL/L (3.6-5.0); SODIUM 142 MMOL/L (135-145)
[2017-08-24 08:00] VITALS: BP 140/67
[2017-08-24] MEDS: NS IV 1000 ML 1,000 ML IV SCH ×2 (08:53→12:22)
[2017-08-24] MEDS: COLESTIPOL 1 GM (COLESTID) TAB PO SCH ×3 (08:53→21:15)
[2017-08-24] MEDS: CARVEDILOL 12.5 MG (COREG) TABLET PO SCH ×2 (08:55→21:15)
[2017-08-24] MEDS: cefTRIAXone INJECTION 1,000 MG in NS (IVPB) 50 ML IV SCH (08:55)
[2017-08-24] MEDS ORDERED: LOSA50TA36 PO (09:30)
[2017-08-24] MEDS ORDERED: AMLO5TAB2 PO (09:30)
[2017-08-24] MEDS ORDERED: COLE1TAB PO (09:30)
[2017-08-24 12:00] VITALS: BP 135/66
[2017-08-24] MEDS: amLODIPine 5 MG (NORVASC) TAB PO SCH (12:22)
[2017-08-24] MEDS: LOSARTAN 50 MG (COZAAR) TAB PO SCH (12:22)
[2017-08-24] MEDS ORDERED: NS IV 500 ML 500 ML ONE (12:39)
[2017-08-24] MEDS ORDERED: NS IV 500 ML 500 ML IV ONE (12:45)
--- NOTE | 2017-08-24 13:50 | Progress Note (SOAP) ---
Subjective Date Seen by Provider: Aug 24, 2017 Time Seen by Provider: 10:45 Subjective/Events-last exam Fwup left hip abscess/cellulitis, HTN, DM--insulin requiring, chronic anemia. Left hip wound draining more. Spiked fever last night. Objective Exam Vital Signs Date Time Temp Pulse Resp B/P (MAP) Pulse Ox O2 Delivery O2 Flow Rate FiO2 08/24/17 12:00 97.9 72 18 135/66 (89) 96 08/24/17 08:00 98.9 64 18 140/67 (91) 98 Room Air 08/24/17 08:00 Room Air 08/24/17 04:03 98.1 62 18 137/64 (88) 98 Room Air 08/24/17 00:56 100.1 67 18 143/63 (89) 96 Room Air 08/23/17 21:23 99.8 08/23/17 21:22 99.8 08/23/17 20:45 101.0 08/23/17 20:03 101.3 71 18 199/76 (117) 97 Room Air 08/23/17 19:35 Room Air I & O 08/24/17 06:59 Intake Total 450 ml Balance 450 ml Capillary Refill : Less Than 3 Seconds General Appearance: No Apparent Distress Neck: Supple Respiratory: Lungs Clear Cardiovascular: Regular Rate, Rhythm Gastrointestinal: normal bowel sounds, non tender, soft Extremity: Non Tender, No Calf Tenderness, No Pedal Edema Neurologic/Psychiatric: Alert, Oriented x3 Skin: Other (left lateral hip wound with erythema/fluctuance/tenderness/eschar/ drainage) Results Lab Laboratory Tests 08/23/17 20:15: Glucometer 374H 08/24/17 05:23: Glucometer 120H 08/24/17 06:00: White Blood Count 4.8, Red Blood Count 3.37L, Hemoglobin 9.1L, Hematocrit 29L, Mean Corpuscular Volume 86, Mean Corpuscular Hemoglobin 27, Mean Corpuscular Hemoglobin Concent 31L, Red Cell Distribution Width 13.8, Platelet Count 395, Mean Platelet Volume 9.5, Neutrophils (%) (Auto) 53, Lymphocytes (%) (Auto) 31, Monocytes (%) (Auto) 11, Eosinophils (%) (Auto) 4, Basophils (%) (Auto) 0, Neutrophils # (Auto) 2.6, Lymphocytes # (Auto) 1.5, Monocytes # (Auto) 0.6, Eosinophils # (Auto) 0.2, Basophils # (Auto) 0.0, Prothrombin Time 28.1H, INR Comment 2.6H, Sodium Level 142, Potassium Level 4.5, Chloride Level 108H, Carbon Dioxide Level 23, Anion Gap 11, Blood Urea Nitrogen 13, Creatinine 0.92, Estimat Glomerular Filtration Rate > 60, BUN/Creatinine Ratio 14, Glucose Level 102, Calcium Level 8.6, Total Bilirubin 0.2, Aspartate Amino Transf (AST/SGOT) 29, Alanine Aminotransferase (ALT/SGPT) 45, Alkaline Phosphatase 199H, Total Protein 6.0L, Albumin 2.9L 08/24/17 11:20: Glucometer 211H Assessment/Plan Assessment/Plan Assess & Plan/Chief Complaint 1. Left hip wound abscess/cellulitis--continue broad spectrum abx, ortho to assess today for possible I and D 2. Hypertension--home meds restarted 3. DM--insulin requiring--started on levemir with SSI 4. Chronic Anemia--monitor H/H 5. Hypercoagulable State with History of DVT--coumadin on hold for anticipated surgery--need INR to 1.4 so will give FFP and recheck PT/INR this evening and plan on restarting lovenox and coumadin post surgery Clinical Quality Measures Admission Status Admission Dx 1. Left hip abscess/cellulitis--admit for IV Vancomycin, IV rocephin and surgery evaluation for debridement 2. Diabetes mellitus-insulin requiring--Levemir with SSI 3. Hypertension--resume home medications DVT/VTE Risk/Contraindication: Risk Factor Score Per Nursin RFS Level Per Nursing on Admit: 4+=Very High SHAKEEL BRUCE DO Aug 24, 2017 1:50 pm
--- NOTE | 2017-08-24 14:05 | Consultation ---
History of Present Illness History of Present Illness Patient Consulted On(blanco/time) 08/24/17 13:59 Date Seen by Provider: Aug 24, 2017 Time Seen by Provider: 13:59 Reason for Visit: Post-op wound problem History of Present Illness Ms. De Leon is a pleasant 67 y/o female with h/o multiple medical morbidities whom is s/p ORIF intertrochanteric fracture per myself on 05/02/2017. She was last seen in my office for follow up on 06/26/2017. At that time she had a small amount of superficial wound dehiscence and mild drainage. She was placed on oral Keflex and asked to follow up in 2 weeks for close observation of her wound. She was unable to make that follow up appointment for social reasons. She says that the wound had formed a large scab subsequent to that visit which began draining copious fluid about a week ago. The patient was seen yesterday at a local urgent care and later admitted here for a wound infection. She denies hip pain with ROM or ambulation/weight bearing. She also denies f/c/ns, n /v or other constitutional symptoms. She currently c/o very little pain and has no other complaints at this time. Allergies and Home Medications Allergies Coded Allergies: Penicillins (Verified Allergy, Intermediate, HIVES, 05/28/17) hydrocodone (Verified Adverse Reaction, Unknown, VOMITING, 05/28/17) Home Medications Acetaminophen 500 Mg Tablet, 500-1,000 MG PO Q6H PRN for PAIN-MILD, (Reported) TAKES 1-2 (500MG) TABLETS Amlodipine Besylate 5 Mg Tablet, 5 MG PO DAILY, (Reported) Atorvastatin Calcium 10 Mg Tablet, 10 MG PO HS, (Reported) Carvedilol 25 Mg Tablet, 25 MG PO BID, (Reported) Citalopram Hydrobromide 20 Mg Tablet, 20 MG PO HS, (Reported) Colestipol HCl 1 Gm Tablet, 1 GM PO BID, (Reported) Diclofenac Sodium 100 Gm Gel..gram., TOP QID PRN for JOINT PAIN, (Reported) Donepezil HCl 5 Mg Tablet, 5 MG PO DAILY, (Reported) Insulin Glargine,Hum.rec.anlog 100 Unit/1 Ml Vial, 22 UNITS SC HS, (Reported) Insulin Lispro 100 Unit/1 Ml Vial, SC AC, (Reported) Losartan Potassium 50 Mg Tablet, 50 MG PO DAILY, (Reported) Pantoprazole Sodium 40 Mg Tablet.dr, 40 MG PO DAILY, (Reported) Tramadol HCl 50 Mg Tablet, 50 MG PO TID PRN for PAIN-MODERATE, (Reported) Warfarin Sodium 4 Mg Tablet, 4 MG PO 1800, (Reported) Patient Home Medication List Home Medication List Reviewed: Yes Past Viqpuwm-Tqnvav-Uvyudd Hx Patient Social History Alcohol Use: Denies Use Recreational Drug Use: No Smoking Status: Never a Smoker 2nd Hand Smoke Exposure: No Recent Foreign Travel: No Contact w/Someone Who Travel: No Recent Infectious Disease Expo: No Recent Hopitalizations: No Immunizations Up To Date Date of Pneumonia Vaccine: Mar 17, 2009 Date of Influenza Vaccine: Mar 02, 2017 Seasonal Allergies Seasonal Allergies: No Past Medical History Surgeries: Yes Bladder Surgery, Section, Gallbladder, Hysterectomy Respiratory: No Currently Using CPAP: No Cardiac: Yes Deep Vein Thrombosis, Hypertension Neurological: Yes (1997 ) Stroke Reproductive Disorders: No Sexually Transmitted Disease: No Genitourinary: Yes UTI-Chronic Gastrointestinal: No Musculoskeletal: Yes (OSTEOPENIA) Endocrine: Yes Diabetes, Insulin dep Are Your Blood Sugars Over 250: No HEENT: No Cancer: Yes (1976-REMOVED) Cervical Did You Recieve Any Treatments: Yes What Type of Treatment Did You: Surgical Intervention Psychosocial: No Integumentary: Yes (wound left hip-post op) Blood Disorders: 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) Family Medical History Asthma 19 FATHER Diabetes mellitus 19 FATHER 19 MOTHER Hypertension 19 FATHER 19 MOTHER No Pertinent Family Hx Review of Systems-General Constitutional: no symptoms reported EENTM: no symptoms reported Respiratory: no symptoms reported Cardiovascular: no symptoms reported Gastrointestinal: no symptoms reported Genitourinary: no symptoms reported Musculoskeletal: no symptoms reported Skin: other (drainage from wound left lateral thigh) Psychiatric/Neurological: No Symptoms Reported Physical Exam-General Problems Physical Exam Vital Signs Vital Signs - First Documented 08/23/17 08/23/17 19:35 20:03 Temp 101.3 Pulse 71 Resp 18 B/P (MAP) 199/76 (117) Pulse Ox 97 O2 Delivery Room Air Capillary Refill : Less Than 3 Seconds General Appearance: WD/WN, no apparent distress Eyes: Bilateral Eye PERRL, Bilateral Eye EOMI HEENT: PERRL/EOMI, normal ENT inspection Neck: full range of motion, supple, normal inspection Respiratory: no respiratory distress, no accessory muscle use Cardiovascular: normal peripheral pulses, regular rate, rhythm, no edema Peripheral Pulses: 2+ Femoral (L), 2+ Dorsalis Pedis (R) Gastrointestinal: non tender, soft Extremities: normal range of motion, no pedal edema, no calf tenderness, normal capillary refill, other (LLE: no pain in the hip with PROM, circular area of superficial skin eschar lateral surgical wound, about 4cm in diameter and surrounding necrosis and erythema, persistent broad area of induration, no gross purulence, all compartments soft/NT, motor/sensation grossly intact, foot well persfused.) Skin: warm/dry Assessment/Plan Assessment/Plan Admission Diagnosis/Plan 67 y/o female about 15 weeks s/p ORIF intertrochanteric fracture left proximal femur. She had developed a persistent post-op hematoma in the lateral wound that has now developed what appears to be a relatively superficial area of necrosis/ cellulitis. No clinical evidence of infection of the deep soft tissue, bone or hardware. This will require formal surgical debridement and application of a DIRECTOR OF PERSONNEL wound vac in the OR. Wound care service will also need to be consulted for [place] changes 3 times/week. Will plan for OR in tomorrow morning. NPO after MN tonight for OR tomorrow. Will also need to continue to hold coumadin and reverse the INR. I explained the treatment plan to the patient in detail. All of her questions have been answered to her satisfaction. She has given informed written consent to proceed as planned. Admission Status: Inpatient Order (span 2 midnights) Reason for Inpatient Admission: Post-op wound infection Clinical Quality Measures DVT/VTE Risk/Contraindication: Risk Factor Score Per Nursin RFS Level Per Nursing on Admit: 4+=Very High FAM DODSON DO Aug 24, 2017 14:05
[2017-08-24 15:45] VITALS: BP 185/74
[2017-08-24] MEDS: VANCOMYCIN INJECTION 1,000 MG in NS (IVPB) 250 ML IV SCH (17:14)
[2017-08-24 19:09] VITALS: BP 162/78
[2017-08-24 19:19] LABS: INR 1.9 (0.8-1.4); PROTHROMBIN TIME PATIENT 21.9 SEC (12.2-14.7)
[2017-08-24] MEDS ORDERED: COLESTIPOL 1 GM (COLESTID) TAB PO SCH (21:00)
[2017-08-24] MEDS ORDERED: NON-FORMULARY MEDICATION 1 EA EA (Carvedilol 25 MG) PO SCH (21:00)
[2017-08-24] MEDS: inSUlin DETERMIR 1 UNIT/0.01 ML (LEVEMIR) CHARGE PER UNIT SQ SCH (21:13)
[2017-08-24] MEDS: DONEPEZIL 5 MG (ARICEPT) TAB PO SCH (21:15)
[2017-08-24] MEDS: ATORVASTATIN 10 MG (LIPITOR) TABLET PO SCH (21:15)
[2017-08-25] VITALS: BP 164/72
[2017-08-25] MEDS: CLINDAMYCIN 600 MG/50 ML IVPB 50 ML IV SCH ×3 (05:33→21:11)
[2017-08-25] MEDS: PANTOPRAZOLE 40 MG (PROTONIX) TAB PO SCH (05:34)
[2017-08-25] MEDS: LACTOBACILLUS Acidoph/Bulgar (LACTINEX/FLORANEX) TAB PO SCH ×3 (05:34→16:44)
[2017-08-25] MEDS: inSUlin ASPART (NovoLOG) 1 UNIT/0.01 ML (CHARGE PER UNIT) SC SCH ×4 (06:08→16:44)
[2017-08-25 06:29] LABS: INR 1.8 (0.8-1.4); PROTHROMBIN TIME PATIENT 21.1 SEC (12.2-14.7)
[2017-08-25] MEDS ORDERED: ONDANSETRON 4 MG/2 ML (SDV) Z0FRAN ONE (07:22)
[2017-08-25] MEDS ORDERED: LIDOCAINE PF 2% 5 ML (XYLOCAINE) VIAL ONE (07:22)
[2017-08-25] MEDS ORDERED: fentaNYL INJECTION 100 MCG/2 ML AMP ONE (07:22)
[2017-08-25] MEDS ORDERED: proPOfol 200 MG/20 ML (DIPRIVAN) VIAL IV ONE (07:22)
[2017-08-25] MEDS ORDERED: MIDAZOLAM 10 MG/2 ML (VERSED) VIAL ONE (07:23)
[2017-08-25] MEDS: LACTATED RINGERS 1,000 ML IV PRN ×2 (07:42→08:35)
[2017-08-25] MEDS ORDERED: SEVOFLURANE (ULTANE) 15 ML INHAL SOLN ONE ×3 (08:17→09:05)
[2017-08-25] MEDS ORDERED: morphine INJ 10 MG/ML 1ML (SYR OR VIAL) ONE (08:39)
[2017-08-25] MEDS ORDERED: HYDROmorphone 1 MG/ML (DILAUDID) 1 ML SYRINGE ONE (08:40)
[2017-08-25] MEDS ORDERED: NON-FORMULARY MEDICATION 1 EA EA (Losartan Potassium 50 MG) PO SCH (09:00)
[2017-08-25] MEDS ORDERED: DONEPEZIL 5 MG (ARICEPT) TAB PO SCH (09:00)
[2017-08-25] MEDS ORDERED: NON-FORMULARY MEDICATION 1 EA EA (Amlodipine Besylate 5 MG) PO SCH (09:00)
[2017-08-25] MEDS ORDERED: PANTOPRAZOLE 40 MG (PROTONIX) TAB PO SCH (09:00)
[2017-08-25] MEDS ORDERED: LACTATED RINGERS 2,000 ML IV ONE (09:08)
--- NOTE | 2017-08-25 09:22 | Progress Note-Post Operative ---
Post-Operative Progess Note Surgeon (s)/Optical Fabrication Technician (s) Surgeon FAM DODSON DO Optical Fabrication Technician: None Pre-Operative Diagnosis Post-op wound infection Left hip Post-Operative Diagnosis Same Procedure & Operative Findings Date of Procedure 08/25/17 Procedure Performed/Findings I&D/application of negative pressure wound vac post-op wound infection Left hip. Findings: deep soft tissue infection, gross purulence, infection tracked down to hardware Left proximal femur. Anesthesia Type General Estimated Blood Loss Estimated blood loss (mL): 100 mL Specimens/Packing Specimens Removed None. Packing: None Complications: none Drains: negative pressure wound vac, one medium sponge Disposition: stable, to PACU FAM DODSON DO Aug 25, 2017 09:22
[2017-08-25] MEDS ORDERED: LABETALOL HCL 20 MG/4 ML VIAL ONE (09:29)
[2017-08-25] MEDS ORDERED: HYDROmorphone 1 MG/ML (DILAUDID) 1 ML SYRINGE IV PRN (09:30)
[2017-08-25] MEDS ORDERED: PROMETHAZINE INJ 25 MG/ML (PHENERGAN) AMP IVP PRN (09:30)
[2017-08-25] MEDS ORDERED: morphine INJ 10 MG/ML 1ML (SYR OR VIAL) IVP PRN (09:30)
[2017-08-25] MEDS ORDERED: MEPERIDINE (DEMEROL) INJ 50 MG/ML IVP PRN (09:30)
[2017-08-25] MEDS ORDERED: ONDANSETRON 4 MG/2 ML (SDV) Z0FRAN IVP PRN (09:30)
[2017-08-25] MEDS ORDERED: LABETALOL HCL 20 MG/4 ML VIAL IV ONE ×2 (10:00)
[2017-08-25 10:30] VITALS: BP 133/73
[2017-08-25] MEDS: cefTRIAXone INJECTION 1,000 MG in NS (IVPB) 50 ML IV SCH (10:40)
[2017-08-25] MEDS: LOSARTAN 50 MG (COZAAR) TAB PO SCH (11:09)
[2017-08-25] MEDS: COLESTIPOL 1 GM (COLESTID) TAB PO SCH ×2 (11:09→20:33)
[2017-08-25] MEDS: CARVEDILOL 12.5 MG (COREG) TABLET PO SCH ×2 (11:10→20:31)
[2017-08-25] MEDS: amLODIPine 5 MG (NORVASC) TAB PO SCH (11:13)
--- NOTE | 2017-08-25 11:15 | Physical Therapy Evaluation ---
PT Evaluation-General Medical Diagnosis Admission Date Aug 23, 2017 at 19:30 Medical Diagnosis: left hip abscess Onset Date: Aug 25, 2017 Therapy Diagnosis Therapy Diagnosis: weakness; impaired mobility Height/Weight Height (Feet): 5 Height (Inches): 2.00 Weight (Pounds): 172 Weight (Ounces): 0.0 Precautions Precautions/Isolations: Fall Prevention Weight Bear Status Right Lower Extremity: Right Full Weight Bearing Left Lower Extremity: Left Full Weight Bearing Referral Physician: Rafaela Reason for Referral: Evaluation/Treatment Medical History Pertinent Medical History: Atrial Fib, CVA, DM, HTN Additional Medical History left hip fx in April 2017 Current History Pt sustained a left hip fx in April of 2017 and underwent surgical repair. She is currently living at her apartment in [place] and receiving Home health. She developed an abscess over the incision site on the left hip. She was admitted for surgical debridement. Reviewed History: Yes Social History Home: Single Level Current Living Status: Alone Entry Into Home: Level Entry Prior/Core FIM Prior Level of Function Functional [place] Measure 0=Not Assessed/NA 4=Minimal Assistance 1=Total Assistance 5=Supervision or Setup 2=Maximal Assistance 6=Modified [place] 3=Moderate Assistance 7=Complete [place] Bed Mobility: 6 Transfers (B,C,W/C) (FIM): 6 Gait: 6 PT Evaluation-Current Subjective Patient reports she really has no hip pain. She has 2/10 incision pain. She is ready to get herself moving. Objective Patient Orientation: Normal For Age Problem Solving: Good Attachments: IV wound vac ROM/Strength ROM Lower Extremities WFL Strength Lower Extremities gross 4/5 throughout Sensory Vision: Wears Glasses Hearing: Functional Sensation Right Upper Extremit: Intact Sensation Left Upper Extremity: Intact Transfers Functional [place] Measure 0=Not Assessed/NA 4=Minimal Assistance 1=Total Assistance 5=Supervision or Setup 2=Maximal Assistance 6=Modified [place] 3=Moderate Assistance 7=Complete [place] Transfers (B, C, W/C) (FIM): 4 Scootin Supine to/from Sit: 4 Sit to/from Stand: 4 Pt slow. Somewhat lethargic from anesthesia. Movements and motor planning are appropriate. Gait Mode of Locomotion: Walk Anticipated Mode of Locomotion: Walk Gait (FIM): 2 Distance (FIM): 1=up to 49 ft Distance: 15 Gait Level of Assist: 1 Gait Persons Needed: 2 Gait Assistive Device: FWW Comments/Gait Description needed a 2nd person to assist with IV and wound vac. Needed no physical assist for balance. Balance Sitting Static: Normal Sitting Dynamic: Good Standing Static: Fair Standing Dynamic: Fair Assessment/Needs Pt has weakness and impaired mobility following surgery. She had pre-existing weakness following hip fx and is continuing to rehab for that condition. She will benefit from PT to address strength, gait, and mobility. Rehab Potential: Good PT Fdc Goals Fdc Goals PT Vacuum Applicator Operator Goals Time Frame: Aug 31, 2017 Transfers (B,C,W/C) (FIM): 5 Gait (FIM): 5 Gait distance (FIM): 3=150 ft Distance: 150 Gait Level of Assist: 5 Gait Assistive Device: FWW PT Plan Problem List Problem List: Activity Tolerance, Functional Strength, Balance, Gait, Transfer , Bed Mobility Treatment/Plan Treatment Plan: Continue Plan of Care Treatment Plan: Bed Mobility, Education, Functional Activity Issac, Functional Strength, Gait, Therapeutic Exercise, Transfers Treatment Duration: Sep 01, 2017 Frequency: 6 times per week Estimated Hrs Per Day: .25 hour per day Patient and/or Family Agrees t: Yes Safety Risks/Education Patient Education: Gait Training, Transfer Techniques Discharge Recommendations Target Placement home Time/GCodes Time In: 1050 Time Out: 1120 Total Billed Treatment Time: 30 Total Billed Treatment visit, debbie will 30 min LIA TREJO PT Aug 25, 2017 11:15
--- NOTE | 2017-08-25 11:53 | Progress Note-Hospitalist ---
Subjective HPI/CC On Admission Date Seen by Provider: Aug 25, 2017 Time Seen by Provider: 10:40 Subjective/Events-last exam Patient doing well overall Just returned from the I&D performed by Dr. Ventura which revealed pustular drainage and wound VAC was placed Maintained on vancomycin and Rocephin Cultures are pending Pain is controlled on tramadol anything else confuses her so we will not do any more than tramadol and I told that to the nurse Overall raymond diabetes which is chronic We'll check labs in morning 1 unit of FFP was given prior to surgery We'll check INR tomorrow Checked meds and labs Just had a bowel movement Pain is controlled Review of Systems General: Malaise Musculoskeletal: leg pain Objective Exam Vital Signs Vital Signs Date Time Temp Pulse Resp B/P (MAP) Pulse Ox O2 Delivery O2 Flow Rate FiO2 08/25/18 10:30 98.0 66 18 133/73 (93) 96 Room Air Capillary Refill : Less Than 3 Seconds General Appearance: No Apparent Distress, WD/WN, Chronically ill Respiratory: Chest Non Tender, Lungs Clear, Normal Breath Sounds, No Accessory Muscle Use, No Respiratory Distress Cardiovascular: Regular Rate, Rhythm, No Edema, No Gallop, No JVD, No Murmur, Normal Peripheral Pulses Extremity: Normal Capillary Refill, Normal Inspection, Normal Range of Motion ( except left leg due to wound vac), Non Tender, No Calf Tenderness, No Pedal Edema Neurologic/Psychiatric: Alert, Oriented x3, No Motor/Sensory Deficits, Depressed Affect Results/Procedures Lab Patient resulted labs reviewed. Assessment/Plan Assessment and Plan Assess & Plan/Chief Complaint Assessment: Left hip abscess s/p I&D POD # [address] Lorenzo Olivarez DM Subtle confusion/dementia Debilitated status h/o DVT given 1 unit of FFP prior to surgery Plan: Tramadol increase frequency if needed since no other stronger pain meds will be given due to delirium in the past Insulin Check labs in am Diagnosis/Problems Diagnosis/Problems (1) Abscess of hip, left Status: Acute Assessment & Plan: I&D POD # 0 today maintained on Vanc and Rocephin along with wound vac placed today (2) Cellulitis of left hip Status: Acute (3) History of DVT (deep vein thrombosis) Status: Chronic (4) Chronic anticoagulation Status: Chronic (5) Dementia Status: Chronic Qualifiers: Dementia type: unspecified type Dementia behavioral disturbance: without behavioral disturbance Qualified Codes: F03.90 - Unspecified dementia without behavioral disturbance (6) Chronic anticoagulation Status: Chronic Clinical Quality Measures DVT/VTE Risk/Contraindication: Risk Factor Score Per Nursin RFS Level Per Nursing on Admit: 4+=Very High PERICO ALVA DO Aug 25, 2017 11:53
[2017-08-25] MEDS: NS IV 1000 ML 1,000 ML IV SCH (12:14)
[2017-08-25 12:30] VITALS: BP 133/73
[2017-08-25 16:00] VITALS: BP 121/59
[2017-08-25] MEDS: VANCOMYCIN INJECTION 1,000 MG in NS (IVPB) 250 ML IV SCH (16:44)
[2017-08-25] MEDS: ATORVASTATIN 10 MG (LIPITOR) TABLET PO SCH (20:31)
[2017-08-25] MEDS: DONEPEZIL 5 MG (ARICEPT) TAB PO SCH (20:31)
[2017-08-25] MEDS: inSUlin DETERMIR 1 UNIT/0.01 ML (LEVEMIR) CHARGE PER UNIT SQ SCH (20:34)
[2017-08-26 00:13] VITALS: BP 178/77
[2017-08-26] MEDS: NS IV 1000 ML 1,000 ML IV SCH (03:18)
[2017-08-26 05:18] LABS: BASOPHILS % (AUTO) 0 % (0-10); EOSINOPHILS # (AUTO) 0.2 10^3/uL (0.0-0.3); EOSINOPHILS % (AUTO) 4 % (0-10); HEMATOCRIT 26 % (35-52); HEMOGLOBIN 7.8 G/DL (11.5-16.0); LYMPHOCYTES # (AUTO) 1.3 X 10^3 (1.0-4.0); LYMPHOCYTES % (AUTO) 25 % (12-44); MEAN CORPUSCULAR HEMOGLOBIN 26 PG (25-34); MEAN CORPUSCULAR HGB CONC 31 G/DL (32-36); MEAN CORPUSCULAR VOLUME 87 FL (80-99); MEAN PLATELET VOLUME 9.8 FL (7.4-10.4); MONOCYTES # (AUTO) 0.4 X 10^3 (0.0-1.0); MONOCYTES % (AUTO) 8 % (0-12); NEUTROPHILS # (AUTO) 3.3 X 10^3 (1.8-7.8); NEUTROPHILS % (AUTO) 63 % (42-75); PLATELET COUNT 384 10^3/uL (130-400); RED BLOOD COUNT 2.95 10^6/uL (4.35-5.85); WHITE BLOOD COUNT 5.2 10^3/uL (4.3-11.0)
[2017-08-26 05:33] LABS: INR 1.6 (0.8-1.4)
[2017-08-26 05:42] LABS: ALANINE AMINOTRANSFERASE 28 U/L (0-55); ALBUMIN 2.8 GM/DL (3.2-4.5); ALKALINE PHOSPHATASE 152 U/L (40-136); BILIRUBIN,TOTAL 0.2 MG/DL (0.1-1.0); BUN/CREATININE RATIO 13; CALCIUM 8.1 MG/DL (8.5-10.1); CARBON DIOXIDE 20 MMOL/L (21-32); CHLORIDE 108 MMOL/L (98-107); CREATININE SERUM 0.86 MG/DL (0.60-1.30); GFR ESTIMATED > 60; GLUCOSE 129 MG/DL (70-105); POTASSIUM 4.2 MMOL/L (3.6-5.0); SODIUM 138 MMOL/L (135-145); TOTAL PROTEIN 5.4 GM/DL (6.4-8.2)
[2017-08-26] MEDS: inSUlin ASPART (NovoLOG) 1 UNIT/0.01 ML (CHARGE PER UNIT) SC SCH ×4 (05:58→20:17)
[2017-08-26] MEDS: CLINDAMYCIN 600 MG/50 ML IVPB 50 ML IV SCH ×3 (06:04→21:35)
[2017-08-26] MEDS: PANTOPRAZOLE 40 MG (PROTONIX) TAB PO SCH (06:04)
[2017-08-26] MEDS: LACTOBACILLUS Acidoph/Bulgar (LACTINEX/FLORANEX) TAB PO SCH ×3 (06:04→15:58)
[2017-08-26] MEDS: cefTRIAXone INJECTION 1,000 MG in NS (IVPB) 50 ML IV SCH (08:25)
[2017-08-26] MEDS: COLESTIPOL 1 GM (COLESTID) TAB PO SCH ×2 (08:25→20:16)
[2017-08-26] MEDS: LOSARTAN 50 MG (COZAAR) TAB PO SCH (08:25)
[2017-08-26] MEDS: amLODIPine 5 MG (NORVASC) TAB PO SCH (08:25)
[2017-08-26] MEDS: CARVEDILOL 12.5 MG (COREG) TABLET PO SCH ×2 (08:25→20:16)
[2017-08-26 09:32] VITALS: BP 152/69
--- NOTE | 2017-08-26 10:41 | Progress Note-Hospitalist ---
Subjective HPI/CC On Admission Date Seen by Provider: Aug 26, 2017 Time Seen by Provider: 11:00 Subjective/Events-last exam Patient doing well overall Eating and drinking well so will HLIVF to prevent overload Wound vac in place Wound cultures are pending Empiric abx continue Hgb noted so will check Iron level and empirically treat with Venofer today Restart Coumadin Review of Systems General: Malaise Musculoskeletal: leg pain Objective Exam Vital Signs Vital Signs Date Time Temp Pulse Resp B/P (MAP) Pulse Ox O2 Delivery O2 Flow Rate FiO2 08/26/17 09:32 97.2 65 18 152/69 (96) 95 Room Air Capillary Refill : Less Than 3 Seconds General Appearance: No Apparent Distress, WD/WN, Chronically ill Respiratory: Lungs Clear, Normal Breath Sounds Cardiovascular: Regular Rate, Rhythm, No Edema Neurologic/Psychiatric: Alert, Oriented x3, No Motor/Sensory Deficits, Normal Mood/Affect Results/Procedures Lab Laboratory Tests 08/26/17 04:36 Patient resulted labs reviewed. Assessment/Plan Assessment and Plan Assess & Plan/Chief Complaint Assessment: Left hip abscess s/p I&D POD # [address] Lorenzo Olivarez DM Subtle confusion/dementia Debilitated status h/o DVT given 1 unit of FFP prior to surgery Plan: Tramadol increase frequency if needed since no other stronger pain meds will be given due to delirium in the past Insulin Check labs in am Coumadin restart Diagnosis/Problems Diagnosis/Problems (1) Abscess of hip, left Status: Acute Assessment & Plan: I&D POD # 1 today maintained on Vanc, Cleocin and Rocephin along with wound vac placed yesterday (2) Cellulitis of left hip Status: Acute (3) History of DVT (deep vein thrombosis) Status: Chronic (4) Chronic anticoagulation Status: Chronic Assessment & Plan: Restart Coumadin today at 1800 (5) Dementia Status: Chronic Qualifiers: Dementia type: unspecified type Dementia behavioral disturbance: without behavioral disturbance Qualified Codes: F03.90 - Unspecified dementia without behavioral disturbance (6) Chronic anticoagulation Status: Chronic (7) Brittle diabetes mellitus Status: Chronic Clinical Quality Measures DVT/VTE Risk/Contraindication: Risk Factor Score Per Nursin RFS Level Per Nursing on Admit: 4+=Very High PERICO ALVA DO Aug 26, 2017 10:41
[2017-08-26] MEDS ORDERED: morphine INJ 10 MG/ML 1ML (SYR OR VIAL) IVP PRN (11:30)
[2017-08-26] MEDS ORDERED: MEPERIDINE (DEMEROL) INJ 50 MG/ML IVP PRN (11:30)
[2017-08-26] MEDS ORDERED: ONDANSETRON 4 MG/2 ML (SDV) Z0FRAN IVP PRN (11:30)
--- NOTE | 2017-08-26 11:30 | Anesthesia-General Post-Op ---
General Patient Condition Mental Status/LOC: Same as Preop Cardiovascular: Satisfactory Nausea/Vomiting: Absent Respiratory: Satisfactory Pain: Controlled Complications: Absent Post Op Complications Complications None Follow Up Care/Instructions Patient Instructions None needed. Anesthesia/Patient Condition Patient Condition Patient is doing well, no complaints, stable vital signs, no apparent adverse anesthesia problems. No complications reported per nursing. NISHI NOVA CRNA Aug 26, 2017 11:30
[2017-08-26] MEDS: IRON SUCROSE 200 MG/10 ML (VENOFER) VIAL IV SCH (11:33)
[2017-08-26 16:00] VITALS: BP 162/71
[2017-08-26] MEDS ORDERED: TROUGH ORDER-PHARMACY XX NR (16:00)
[2017-08-26] MEDS: warFARin 2 MG (COUMADIN) TAB PO SCH (17:07)
[2017-08-26] MEDS: VANCOMYCIN INJECTION 1,000 MG in NS (IVPB) 250 ML IV SCH (17:07)
[2017-08-26] MEDS: inSUlin DETERMIR 1 UNIT/0.01 ML (LEVEMIR) CHARGE PER UNIT SQ SCH (20:16)
[2017-08-26] MEDS: DONEPEZIL 5 MG (ARICEPT) TAB PO SCH (20:16)
[2017-08-26] MEDS: ATORVASTATIN 10 MG (LIPITOR) TABLET PO SCH (20:16)
[2017-08-27] VITALS: BP 157/69
[2017-08-27] MEDS: LACTOBACILLUS Acidoph/Bulgar (LACTINEX/FLORANEX) TAB PO SCH ×3 (04:51→15:21)
[2017-08-27] MEDS: PANTOPRAZOLE 40 MG (PROTONIX) TAB PO SCH (04:52)
[2017-08-27] MEDS: CLINDAMYCIN 600 MG/50 ML IVPB 50 ML IV SCH ×3 (05:30→22:52)
[2017-08-27] MEDS: inSUlin ASPART (NovoLOG) 1 UNIT/0.01 ML (CHARGE PER UNIT) SC SCH ×4 (05:38→21:43)
[2017-08-27 05:59] LABS: BASOPHILS % (AUTO) 1 % (0-10); EOSINOPHILS # (AUTO) 0.3 10^3/uL (0.0-0.3); EOSINOPHILS % (AUTO) 5 % (0-10); HEMATOCRIT 27 % (35-52); HEMOGLOBIN 8.3 G/DL (11.5-16.0); LYMPHOCYTES # (AUTO) 1.6 X 10^3 (1.0-4.0); LYMPHOCYTES % (AUTO) 29 % (12-44); MEAN CORPUSCULAR HEMOGLOBIN 27 PG (25-34); MEAN CORPUSCULAR HGB CONC 31 G/DL (32-36); MEAN CORPUSCULAR VOLUME 86 FL (80-99); MEAN PLATELET VOLUME 9.7 FL (7.4-10.4); MONOCYTES # (AUTO) 0.4 X 10^3 (0.0-1.0); MONOCYTES % (AUTO) 8 % (0-12); NEUTROPHILS # (AUTO) 3.3 X 10^3 (1.8-7.8); NEUTROPHILS % (AUTO) 58 % (42-75); PLATELET COUNT 431 10^3/uL (130-400); RED BLOOD COUNT 3.08 10^6/uL (4.35-5.85); RED CELL DISTRIBUTION WIDTH 13.8 % (10.0-14.5); WHITE BLOOD COUNT 5.6 10^3/uL (4.3-11.0)
[2017-08-27] MEDS ORDERED: DEXTROSE 50% 50 ML (IMS) SYR ONE (06:08)
[2017-08-27 06:09] LABS: INR 1.3 (0.8-1.4); PROTHROMBIN TIME PATIENT 15.9 SEC (12.2-14.7)
[2017-08-27 06:10] LABS: ALANINE AMINOTRANSFERASE 21 U/L (0-55); ALBUMIN 2.9 GM/DL (3.2-4.5); ALKALINE PHOSPHATASE 149 U/L (40-136); BILIRUBIN,TOTAL 0.2 MG/DL (0.1-1.0); BUN/CREATININE RATIO 10; CALCIUM 8.8 MG/DL (8.5-10.1); CARBON DIOXIDE 20 MMOL/L (21-32); CHLORIDE 110 MMOL/L (98-107); CREATININE SERUM 0.79 MG/DL (0.60-1.30); GFR ESTIMATED > 60; SODIUM 141 MMOL/L (135-145); TOTAL PROTEIN 5.9 GM/DL (6.4-8.2)
[2017-08-27 06:11] LABS: GLUCOSE 43 MG/DL (70-105)
[2017-08-27 08:00] VITALS: BP 171/74
[2017-08-27] MEDS: cefTRIAXone INJECTION 1,000 MG in NS (IVPB) 50 ML IV SCH (08:36)
[2017-08-27] MEDS: amLODIPine 5 MG (NORVASC) TAB PO SCH (08:38)
[2017-08-27] MEDS: CARVEDILOL 12.5 MG (COREG) TABLET PO SCH ×2 (08:38→21:21)
[2017-08-27] MEDS: LOSARTAN 50 MG (COZAAR) TAB PO SCH (08:38)
[2017-08-27] MEDS: VANCOMYCIN INJECTION 750 MG in NS (IVPB) 250 ML IV SCH ×2 (08:38→21:21)
[2017-08-27] MEDS: COLESTIPOL 1 GM (COLESTID) TAB PO SCH ×2 (08:38→21:21)
--- NOTE | 2017-08-27 11:36 | Physical Therapy Daily Note ---
PT Daily Note-Current Subjective Patient has no c/o and agrees to PT. Denies pain. Pain Numeric Pain Scale: 0-No Pain Location: No Pain Reported Mental Status Patient Orientation: Normal For Age wound vac Transfers Functional [place] Measure 0=Not Assessed/NA 4=Minimal Assistance 1=Total Assistance 5=Supervision or Setup 2=Maximal Assistance 6=Modified [place] 3=Moderate Assistance 7=Complete IndependenceIRFPAI Quality Coding Scale 6 Independent with activity with or without an assistive device 5 Patient requires set up or clean up by helper. Patient completes activity by themselves 4 Supervision or touching assist (CGA). Bryan provide cues , steadying assist 3 The helper provides less than half the effort to complete the activity 2 The helper provides more than half the effort to complete the activity 1 Dependent. The helper does all the effort to complete an activity 7 Patient refused to complete or attempt activity 9 The patient did not perform the activity before the current illness or injury 88 Not attempted due to Medical conditions or safety concerns Transfers (B, C, W/C) (FIM): 6 Scootin Rollin Supine to/from Sit: 6 Sit to/from Stand: 6 Weight Bearing Right Lower Extremity: Right Full Weight Bearing Left Lower Extremity: Left Full Weight Bearing Gait Training Gait (FIM): 6 Distance (FIM): 3=150 ft Distance: 375' Gait Level of Assist: 6 Gait Assistive Device: FWW wound vac attached to FWW. steady, fast paced gait sequence Assessment PT to see patient x 1 more session to ensure modified independent LOF with gross motor skills. Patient progressing. PT Senior Care Goals Console Manager Goals PT Senior Care Goals Time Frame: Aug 31, 2017 Transfers (B,C,W/C) (FIM): 5 Gait (FIM): 5 Gait distance (FIM): 3=150 ft Distance: 150 Gait Level of Assist: 5 Gait Assistive Device: FWW PT Plan Treatment/Plan Treatment Plan: Continue Plan of Care Treatment Plan: Bed Mobility, Education, Functional Activity Issac, Functional Strength, Gait, Therapeutic Exercise, Transfers Treatment Duration: Sep 01, 2017 Frequency: 6 times per week Estimated Hrs Per Day: .25 hour per day Patient and/or Family Agrees t: Yes Time/GCodes Time In: 1046 Time Out: 1059 Total Billed Treatment Time: 13 Total Billed Treatment 1 visit FA 13 min CECILIA DE OLIVEIRA PT Aug 27, 2017 11:36
--- NOTE | 2017-08-27 12:29 | Progress Note (SOAP) ---
Subjective Date Seen by Provider: Aug 27, 2017 Time Seen by Provider: 12:26 Subjective/Events-last exam Fwup left hip abscess/cellulitis, HTN, DM--insulin requiring, chronic anemia. Has wound vac in place but going back to surgery this afternoon for deeper debridement and reapplication of wound vac. Discussed with patient and daughter that will need assisted IV antibiotics--at least 6 weeks. Objective Exam Vital Signs Date Time Temp Pulse Resp B/P (MAP) Pulse Ox O2 Delivery O2 Flow Rate FiO2 08/27/17 08:00 96.8 65 16 171/74 (106) 100 Room Air 08/27/17 00:00 98.5 63 20 157/69 (98) 97 Room Air 08/26/17 16:00 97.8 61 18 162/71 (101) 94 Room Air I & O 08/27/17 07:00 Intake Total 2380 ml Output Total 2000 ml Balance 380 ml Capillary Refill : Less Than 3 Seconds General Appearance: No Apparent Distress Respiratory: Lungs Clear Cardiovascular: Regular Rate, Rhythm Gastrointestinal: normal bowel sounds, non tender, soft Extremity: Non Tender, No Calf Tenderness, No Pedal Edema Neurologic/Psychiatric: Alert, Oriented x3 Skin: Other (left lateral hip with wound vac in place) Results Lab Laboratory Tests 08/26/17 16:08: Vancomycin Level Trough 8.6L 08/26/17 16:16: Glucometer 338H 08/26/17 20:11: Glucometer 263H 08/27/17 05:25: White Blood Count 5.6, Red Blood Count 3.08L, Hemoglobin 8.3L, Hematocrit 27L, Mean Corpuscular Volume 86, Mean Corpuscular Hemoglobin 27, Mean Corpuscular Hemoglobin Concent 31L, Red Cell Distribution Width 13.8, Platelet Count 431H, Mean Platelet Volume 9.7, Neutrophils (%) (Auto) 58, Lymphocytes (%) (Auto) 29, Monocytes (%) (Auto) 8, Eosinophils (%) (Auto) 5, Basophils (%) (Auto) 1, Neutrophils # (Auto) 3.3, Lymphocytes # (Auto) 1.6, Monocytes # (Auto) 0.4, Eosinophils # (Auto) 0.3, Basophils # (Auto) 0.0, Prothrombin Time 15.9H, INR Comment 1.3, Sodium Level 141, Potassium Level 4.0, Chloride Level 110H, Carbon Dioxide Level 20L, Anion Gap 11, Blood Urea Nitrogen 8, Creatinine 0.79, Estimat Glomerular Filtration Rate > 60, BUN/Creatinine Ratio 10, Glucose Level 43*L, Calcium Level 8.8, Total Bilirubin 0.2, Aspartate Amino Transf (AST/SGOT) 14, Alanine Aminotransferase (ALT/SGPT) 21, Alkaline Phosphatase 149H, Total Protein 5.9L, Albumin 2.9L 08/27/17 06:03: Glucometer 51*L 08/27/17 06:29: Glucometer 157H Microbiology 08/24/17 MRSA Screen - Final, Complete MRSA not isolated Assessment/Plan Assessment/Plan Assess & Plan/Chief Complaint 1. Left hip wound abscess/cellulitis--continue broad spectrum abx, PICC line for assisted abx, back to surgery today for deeper debridement and reapplication of wound vac 2. Hypertension--home meds restarted 3. DM--insulin requiring--started on levemir with SSI 4. Chronic Anemia--monitor H/H 5. Hypercoagulable State with History of DVT--coumadin on hold for anticipated surgery and plan on restarting lovenox and coumadin post surgery Clinical Quality Measures Admission Status Admission Dx 1. Left hip abscess/cellulitis--admit for IV Vancomycin, IV rocephin and surgery evaluation for debridement 2. Diabetes mellitus-insulin requiring--Levemir with SSI 3. Hypertension--resume home medications DVT/VTE Risk/Contraindication: Risk Factor Score Per Nursin RFS Level Per Nursing on Admit: 4+=Very High SHAKEEL BRUCE DO Aug 27, 2017 12:29 pm
--- NOTE | 2017-08-27 14:11 | Occupational Therapy Eval ---
OT Evaluation-General/PLF Medical Diagnosis Admission Date Aug 23, 2017 at 19:30 Medical Diagnosis: left hip abscess/abscess Onset Date: Aug 25, 2017 Therapy Diagnosis Therapy Diagnosis: Weakness Height/Weight Height (Feet): 5 Height (Inches): 2.00 Weight (Pounds): 173 Weight (Ounces): 6.0 Precautions Precautions/Isolations: Fall Prevention, Standard Precautions Safety Interventions: Reorient-PRN Weight Bear Status Weight Bearing Restriction: Weight Bearing/Tolerated Referral Physician: Rafaela Referral Reason: Activity Tolerance, Self Care, Evaluation/Treatment, Strengthening/ROM Medical History Pertinent Medical History: Atrial Fib, CVA, DM, HTN Additional Medical History Hysterectomy, DVT, HTN, Stroke 1997, DM Current History Pt. has had complicated recent history. Pt. recently on rehab. Went home. Fell with no injury but at that time decided to have skilled treatment in [place]. Was there 30 days. Went home again. Began to not feel well. Found to have infection in hip. Sustained debridement and wound vac, and undergoing another debridement today per daughter. Reviewed History: Yes Social History Home: Single Level Current Living Status: Alone Entry Into Home: Level Entry Pt's daughter states that someone assists with laundry and cleaning, and pt. receives meals on wheels. Family is supportive and checks on her frequently. ADL-Prior Level of Function ADL PLOF Comments Pt. and daughter state that pt. was able to bathe and dress on her own prior to this hospitalization. Able to ambulate to door and receive meals on wheels. DME/Equipment: Bath Chair, Grab Bars, Shower DME/Equipment Comments Walker. Pt. also just recently moved into senior apartment. OT Current Status Subjective No pain reported. Appearance Pt. alert and oriented in bed. Agrees to work with OT. Mental Status/Objective Patient Orientation: Person, Place, Time, Situation Attachments: IV, Oxygen Current Glasses/Contacts: Yes Hand Dominance: Right Upper Extremity ROM WFL Upper Extremity Strength WFL Pt. has wound vac to hip. ADL-Treatment Functional [place] Measure 0=Not Assessed/NA 4=Minimal Assistance 1=Total Assistance 5=Supervision or Setup 2=Maximal Assistance 6=Modified [place] 3=Moderate Assistance 7=Complete IndependenceIRFPAI Quality Coding Scale 6 Independent with activity with or without an assistive device 5 Patient requires set up or clean up by helper. Patient completes activity by themselves 4 Supervision or touching assist (CGA). [place] provide cues , steadying assist 3 The helper provides less than half the effort to complete the activity 2 The helper provides more than half the effort to complete the activity 1 Dependent. The helper does all the effort to complete an activity 7 Patient refused to complete or attempt activity 9 The patient did not perform the activity before the current illness or injury 88 Not attempted due to Medical conditions or safety concerns Lower Body Dressing (FIM): 3 (Pt. able to doff/don right sock, but unable to reach left sock.) Toileting (FIM): 5 Transfers (B, C, W/C) (FIM): 5 (SBA for supine-sit and sit-stand. Able to ambulate with SBA with walker to bathroom. Did require someone to push pole with wound vac.) Toilet/Commode Transfer (FIM): 5 Pt. has already had spongebath. Pt. is going down to surgery at 5 p.m. per her daughter for another I and D of hip. Education OT Patient Education: Correct positioning, Modified ADL techniques, Progress toward Goal/Update tx plan, Purpose of tx/functional activities, Reviewed precautions, Rehab process, Transfer techniques Teaching Recipient: Patient, Family Teaching Methods: Demonstration, Discussion Response to Teaching: Verbalize Understanding, Return Demonstration OT Short Term Goals Short Term Goals 1=Demonstrate adherence to instructed precautions during ADL tasks. 2=Patient will verbalize/demonstrate understanding of assistive devices/ modifications for ADL. 3=Patient will improve strength/tolerance for activity to enable patient to perform ADL's. OT Half-Way Goals Review Consultant Goals Time Frame: Sep 03, 2017 Eating (FIM): 6 Grooming(FIM): 6 Bathing(FIM): 5 Upper Body Dressing(FIM): 6 Lower Body Dressing(FIM): 5 Toileting(FIM): 6 Transfers (B,C,W/C) (FIM): 6 Toilet/Commode Transfer(FIM): 6 Shower Transfer(FIM): 5 Additional Goals: 1-Demonstrate ADL Tasks, 2-Verbalize Understanding, 3- ImproveStrength/Issac 1=Demonstrate adherence to instructed precautions during ADL tasks. 2=Patient will verbalize/demonstrate understanding of assistive devices/ modifications for ADL. 3=Patient will improve strength/tolerance for activity to enable patient to perform ADL's. OT Education/Plan Problem List/Assessment Assessment: Decreased Activ Tolerance, Impaired I ADL's, Impaired Self-Care Skills Discharge Recommendations Plan/Recommendations: Continue POC Therapy D/C Recommendations: Home w/ Family Support, Occupational Therapy Home Care, Scheduled Assistance Treatment Plan/Plan of Care Treatment,Training & Education: Yes Patient would benefit from OT for education, treatment and training to promote independence in ADL's, mobility, safety and/or upper extremity function for ADL' s. Plan of Care: ADL Retraining, Functional Mobility, UE Funct Exercise/Act Treatment Duration: Sep 03, 2017 Frequency: 5 times per week Estimated Hrs Per Day: .25 hour per day Agreement: Yes Rehab Potential: Good Time/GCodes Start Time: 11:45 Stop Time: 12:10 Total Time Billed (hr/min): 25 Billed Treatment Time 1, EVM x 10minutes, ADL x 15minutes NASEEM BURK OT Aug 27, 2017 14:11
[2017-08-27 16:00] VITALS: BP 171/72
[2017-08-27] MEDS ORDERED: morphine INJ 10 MG/ML 1ML (SYR OR VIAL) ONE (17:23)
[2017-08-27] MEDS: LACTATED RINGERS 1,000 ML IV PRN (17:44)
[2017-08-27] MEDS ORDERED: MIDAZOLAM 2 MG/2 ML (VERSED) VIAL ONE (17:45)
[2017-08-27] MEDS ORDERED: fentaNYL INJECTION 100 MCG/2 ML AMP ONE (17:45)
[2017-08-27] MEDS ORDERED: ONDANSETRON 4 MG/2 ML (SDV) Z0FRAN ONE (18:01)
[2017-08-27] MEDS ORDERED: proPOfol 200 MG/20 ML (DIPRIVAN) VIAL IV ONE (18:01)
[2017-08-27] MEDS ORDERED: LIDOCAINE PF 2% 5 ML (XYLOCAINE) VIAL ONE (18:01)
[2017-08-27] MEDS ORDERED: VANCOMYCIN 1000 MG/VIAL ONE (18:25)
[2017-08-27] MEDS ORDERED: SEVOFLURANE (ULTANE) 15 ML INHAL SOLN ONE ×6 (19:07)
[2017-08-27 20:40] VITALS: BP 146/66
[2017-08-27] MEDS: DONEPEZIL 5 MG (ARICEPT) TAB PO SCH (21:21)
[2017-08-27] MEDS: ATORVASTATIN 10 MG (LIPITOR) TABLET PO SCH (21:24)
[2017-08-27] MEDS: inSUlin DETERMIR 1 UNIT/0.01 ML (LEVEMIR) CHARGE PER UNIT SQ SCH (21:43)
[2017-08-27] MEDS: warFARin 2 MG (COUMADIN) TAB PO SCH (21:45)
--- NOTE | 2017-08-27 22:23 | Progress Note-Standard ---
Standard Progress Note Progress Notes/Assess & Plan Date Seen by Provider: Aug 27, 2017 Time Seen by Provider: 17:40 Progress/Assessment & Plan Pt AJ, doing well, no complaints. VSSAF Labs stable, Hb improving LLE: WV stable with good seal, motor/sensation grossly intact, foot well perfused S/P I&D/application of wound vac post-op wound infection Left hip, POD #2 Plan for OR today for repeat I&D with wound vac change versus primary closure. Plan discussed with the patient. Questions answered. FAM DODSON DO Aug 27, 2017 22:23
--- NOTE | 2017-08-27 22:26 | Progress Note-Post Operative ---
Post-Operative Progess Note Surgeon (s)/Bullet Charging Machine Operator (s) Surgeon FAM DODSON DO Bullet Charging Machine Operator: None Pre-Operative Diagnosis Post-op wound infection Left hip Post-Operative Diagnosis Same Procedure & Operative Findings Date of Procedure 08/27/17 Procedure Performed/Findings Repeat I&D left hip wound with primary closure and application of incisional wound vac/stable soft tissue bed, no persistent gross signs of infection. Anesthesia Type General Estimated Blood Loss Estimated blood loss (mL): 25 mL Specimens/Packing Specimens Removed None Packing: None Complications: none Drains: incisional wound vac Disposition: stable, to PACU FAM DODSON DO Aug 27, 2017 22:26
[2017-08-28 00:30] VITALS: BP 99/51
--- NOTE | 2017-08-28 01:09 | OPERATIVE REPORT ---
DATE OF SERVICE: 08/25/2017 PREPROCEDURE DIAGNOSIS: Postoperative wound infection, left hip. POSTPROCEDURE DIAGNOSIS: Postoperative wound infection, left hip. PROCEDURE: 1. Irrigation and excisional debridement including skin and subcutaneous tissue, postop wound infection, left hip; wound size approximately 10 square cm. 2. Application of negative pressure wound VAC, left hip wound. ATTENDING SURGEON: Dr. Fam Ventura. ANESTHESIA: General. ESTIMATED BLOOD LOSS: 100 mL. COMPLICATIONS: None. SPECIMENS: None. DRAINS: Negative pressure wound VAC. FINDINGS: Full thickness superficial necrosis involving skin and subcutaneous tissue, area of approximately 10 square cm; gross purulence and deep soft tissue infection tracking all the way down to the previously implanted hardware below the fascia. BRIEF HISTORY/INDICATIONS: The patient is a very pleasant 67-year-old female who had sustained a displaced, comminuted intertrochanteric fracture of the left proximal femur on 05/01/2017. She underwent a successful open reduction and internal fixation of that injury per myself with application of a cephalomedullary device. The patient tolerated that procedure well and was subsequently discharged from the hospital to a local correction facility after an uneventful hospital stay. Upon her most recent followup in my office approximately 2 months ago, she did have what appeared to be a small amount of superficial wound dehiscence on the more proximal aspect of the left lateral hip wound. There was no gross purulence at that time or gross signs of deep infection. She was placed on prophylactic oral Keflex and asked to follow up in 2 weeks for close monitoring of her wound. The patient was lost to followup, she did not make her followup appointment two weeks later as recommended. The patient was recently admitted to [facility] after home nursing became concerned about the appearance of her left hip wound. Upon presentation, the patient did have a large area of what appeared to be relatively superficial wound necrosis involving the skin and some of the subcutaneous tissue, there was some gross purulence and copious drainage coming from the wound. As such, the patient was consented for operative debridement of the wound. I discussed the risks, benefits, potential complications and expected outcomes of the planned procedure. She gave informed consent to proceed as planned after all of her questions were answered to her satisfaction. Those risks that were discussed included persistent infection, osteomyelitis, damage to surrounding neurovascular structures, and potential need for secondary surgical debridements and other procedures. PROCEDURE NOTE: After correctly identifying the patient as the patient in the preoperative holding area and after her left hip was appropriately marked, she was transferred to the operating room. Once in the operating room, she had successful induction of general endotracheal anesthesia. She was transferred to standard OR table, placed in the supine position. All bony prominences were meticulously padded. The left hip was then prepped and draped in the routine sterile fashion. Prior to beginning the case, we completed an operating room timeout and verified, the patient was on adequate antibiotic coverage. Using a sterile marking pen, I marked out my planned incision on the lateral aspect of the left hip with a plan to ellipse out the entire necrotic area. Using a 10 blade scalpel, I did ellipse out the entire necrotic area, which included approximately 10 square cm. I debrided all of the necrotic tissue, which did involve a significant amount of subcutaneous fat. There was a large purulent fluid collection that was also evacuated. Using a series of curettes and 10 blade scalpels, blunt and sharp debridement of all necrotic and devitalized tissue was completed. The wound was then irrigated with 6 liters of normal saline with pulse lavage. After irrigating, I did debride any further noted necrotic tissue. There was gross purulence as noted above, this did track below the fascia all the way down to the cephalomedullary screw in the proximal femur. I once again irrigated with copious amounts of sterile saline with pulse lavage. All noted necrotic tissue had been adequately debrided until only healthy appearing well vascularized tissue remained. A negative pressure wound VAC was then applied in standard fashion and hooked up to continuous suction at 75 mmHg. We achieved an excellent seal with the wound VAC prior to the patient being awakened. The patient was then awakened and extubated without complications and then transferred to the PACU in stable condition. She tolerated the procedure quite well. All counts were correct at the end of the case. PLAN: The patient will need at least one additional and perhaps more than one additional repeat irrigation, debridement and wound VAC change. I will attempt primary closure next debridement if able. Otherwise, the patient will need to continue the wound VAC until the wound heals via secondary intention. We will consult wound care services to help manage the wound VAC on the floor. The patient will continue her empiric antibiotics. Being that the infection did track all the way down to the hardware, I explained that she very likely may need chronic suppressive antibiotics. I explained that I did not believe that it was a sensible idea to remove her hardware as although the intertrochanteric fracture is healed, the patient would be at very high risk of refracture with removal of hardware. I do not believe that the patient has extensive involvement of the hardware, the proximal femur bone nor the hip joint as the patient has been relatively asymptomatic from that standpoint, not complaining of any hip pain or pain with ambulation. I explained this plan to the patient as well as the primary medicine service. Job ID: [id number] DocumentID: [id number] Dictated Date: 08/27/2017 17:57:42 Personal Caregiver Date: 08/28/2017 01:08:36 Dictated By: FAM MEJIA
[2017-08-28 04:02] VITALS: BP 101/65
[2017-08-28] MEDS: CLINDAMYCIN 600 MG/50 ML IVPB 50 ML IV SCH ×3 (05:39→21:57)
[2017-08-28] MEDS: PANTOPRAZOLE 40 MG (PROTONIX) TAB PO SCH (05:39)
[2017-08-28] MEDS: LACTOBACILLUS Acidoph/Bulgar (LACTINEX/FLORANEX) TAB PO SCH ×3 (05:39→15:01)
[2017-08-28] MEDS: inSUlin ASPART (NovoLOG) 1 UNIT/0.01 ML (CHARGE PER UNIT) SC SCH ×4 (05:50→21:54)
[2017-08-28 06:31] LABS: BASOPHILS % (AUTO) 0 % (0-10); EOSINOPHILS # (AUTO) 0.2 10^3/uL (0.0-0.3); EOSINOPHILS % (AUTO) 4 % (0-10); HEMATOCRIT 26 % (35-52); HEMOGLOBIN 7.7 G/DL (11.5-16.0); LYMPHOCYTES # (AUTO) 1.8 X 10^3 (1.0-4.0); LYMPHOCYTES % (AUTO) 28 % (12-44); MEAN CORPUSCULAR HEMOGLOBIN 26 PG (25-34); MEAN CORPUSCULAR HGB CONC 30 G/DL (32-36); MEAN CORPUSCULAR VOLUME 87 FL (80-99); MEAN PLATELET VOLUME 9.5 FL (7.4-10.4); MONOCYTES # (AUTO) 0.5 X 10^3 (0.0-1.0); MONOCYTES % (AUTO) 8 % (0-12); NEUTROPHILS # (AUTO) 3.9 X 10^3 (1.8-7.8); NEUTROPHILS % (AUTO) 60 % (42-75); PLATELET COUNT 454 10^3/uL (130-400); RED BLOOD COUNT 2.93 10^6/uL (4.35-5.85); WHITE BLOOD COUNT 6.4 10^3/uL (4.3-11.0)
[2017-08-28 06:49] LABS: INR 1.3 (0.8-1.4); PROTHROMBIN TIME PATIENT 16.6 SEC (12.2-14.7)
[2017-08-28 06:54] LABS: ALANINE AMINOTRANSFERASE 17 U/L (0-55); ALBUMIN 2.9 GM/DL (3.2-4.5); ALKALINE PHOSPHATASE 126 U/L (40-136); BILIRUBIN,TOTAL 0.3 MG/DL (0.1-1.0); BUN/CREATININE RATIO 9; CALCIUM 8.4 MG/DL (8.5-10.1); CARBON DIOXIDE 21 MMOL/L (21-32); CHLORIDE 108 MMOL/L (98-107); CREATININE SERUM 0.92 MG/DL (0.60-1.30); GFR ESTIMATED > 60; GLUCOSE 65 MG/DL (70-105); POTASSIUM 3.9 MMOL/L (3.6-5.0); SODIUM 140 MMOL/L (135-145); TOTAL PROTEIN 5.5 GM/DL (6.4-8.2)
--- NOTE | 2017-08-28 07:30 | Anesthesia-General Post-Op ---
General Patient Condition Mental Status/LOC: Same as Preop Cardiovascular: Satisfactory Nausea/Vomiting: Absent Respiratory: Satisfactory Pain: Controlled Complications: Absent Post Op Complications Complications None Follow Up Care/Instructions Patient Instructions None needed. Anesthesia/Patient Condition Patient Condition Patient is doing well, no complaints, stable vital signs, no apparent adverse anesthesia problems. No complications reported per nursing. D/C home per [facility] Criteria: ROSE Reynoso CRNA Aug 28, 2017 07:30
[2017-08-28 08:00] VITALS: BP 95/51
[2017-08-28] MEDS: amLODIPine 5 MG (NORVASC) TAB PO SCH (08:03)
[2017-08-28] MEDS: LOSARTAN 50 MG (COZAAR) TAB PO SCH (08:03)
[2017-08-28] MEDS: COLESTIPOL 1 GM (COLESTID) TAB PO SCH ×2 (08:04→21:55)
[2017-08-28] MEDS: CARVEDILOL 12.5 MG (COREG) TABLET PO SCH ×2 (08:04→21:54)
--- NOTE | 2017-08-28 09:39 | Physical Therapy Daily Note ---
PT Daily Note-Current Subjective Patient agrees to PT. No c/o. Pain Numeric Pain Scale: 0-No Pain Location: No Pain Reported Mental Status Patient Orientation: Normal For Age wound vac Transfers Functional [place] Measure 0=Not Assessed/NA 4=Minimal Assistance 1=Total Assistance 5=Supervision or Setup 2=Maximal Assistance 6=Modified [place] 3=Moderate Assistance 7=Complete IndependenceIRFPAI Quality Coding Scale 6 Independent with activity with or without an assistive device 5 Patient requires set up or clean up by helper. Patient completes activity by themselves 4 Supervision or touching assist (CGA). [place] provide cues , steadying assist 3 The helper provides less than half the effort to complete the activity 2 The helper provides more than half the effort to complete the activity 1 Dependent. The helper does all the effort to complete an activity 7 Patient refused to complete or attempt activity 9 The patient did not perform the activity before the current illness or injury 88 Not attempted due to Medical conditions or safety concerns Transfers (B, C, W/C) (FIM): 6 Scootin Rollin Supine to/from Sit: 6 Sit to/from Stand: 6 Weight Bearing Right Lower Extremity: Right Full Weight Bearing Left Lower Extremity: Left Full Weight Bearing Gait Training Gait (FIM): 6 Distance (FIM): 3=150 ft Distance: 350' Gait Level of Assist: 6 Gait Assistive Device: FWW safe and functional Assessment Patient is currently at [facility] with all gross motor skills safely and PT to dismiss from services. PT encouraged patient and nursing to ambulate PRN in hallway. PT Instructor Robotics Goals Mcc Goals PT Mcc Goals Time Frame: Aug 31, 2017 Transfers (B,C,W/C) (FIM): 5 Gait (FIM): 5 Gait distance (FIM): 3=150 ft Distance: 150 Gait Level of Assist: 5 Gait Assistive Device: FWW PT Plan Treatment/Plan Treatment Plan: Discontinue PT, goals met Treatment Plan: Bed Mobility, Education, Functional Activity Issac, Functional Strength, Gait, Therapeutic Exercise, Transfers Treatment Duration: Sep 01, 2017 Frequency: 6 times per week Estimated Hrs Per Day: .25 hour per day Patient and/or Family Agrees t: Yes Time/GCodes Time In: 910 Time Out: 920 Total Billed Treatment Time: 10 Total Billed Treatment 1 visit FA 10 min CECILIA DE OLIVEIRA PT Aug 28, 2017 09:39
[2017-08-28 12:00] VITALS: BP 124/56
--- NOTE | 2017-08-28 12:01 | Occupational Ther Daily Note ---
OT Current Status-Daily Note Subjective Pt alert, lying in bed. Pt agrees to therapy. No c/o pain. Mental Status/Objective Functional [place] Measure 0=Not Assessed/NA 4=Minimal Assistance 1=Total Assistance 5=Supervision or Setup 2=Maximal Assistance 6=Modified [place] 3=Moderate Assistance 7=Complete [place] ADL-Treatment Pt requested to wash hair, sponge bath only due to wound vac. Pt transferred to toilet and completed toileting using grabbar and FWW with SBA. Pt transferred into shower with SBA using chair and grabbars to wash hair then sat at sink to complete sponge bath. Pt unable to reach feet at this time but was able to complete all other bathing by self. Pt manipulates clothing for toileting and is using hospital gown at this time for upper body dressing. Pt will need AE to complete donning doffing footwear. Pt then was able to go from sitting EOB to supine with SBA. After therapy, pt lying in bed with call light/ phone in reach. All needs met in room. OT Short Term Goals Short Term Goals 1=Demonstrate adherence to instructed precautions during ADL tasks. 2=Patient will verbalize/demonstrate understanding of assistive devices/ modifications for ADL. 3=Patient will improve strength/tolerance for activity to enable patient to perform ADL's. OT Spindle Tester Goals Fpc Goals Time Frame: Sep 03, 2017 Eating (FIM): 6 Grooming(FIM): 6 Bathing(FIM): 5 Upper Body Dressing(FIM): 6 Lower Body Dressing(FIM): 5 Toileting(FIM): 6 Transfers (B,C,W/C) (FIM): 6 Toilet/Commode Transfer(FIM): 6 Shower Transfer(FIM): 5 Additional Goals: 1-Demonstrate ADL Tasks, 2-Verbalize Understanding, 3- ImproveStrength/Issac 1=Demonstrate adherence to instructed precautions during ADL tasks. 2=Patient will verbalize/demonstrate understanding of assistive devices/ modifications for ADL. 3=Patient will improve strength/tolerance for activity to enable patient to perform ADL's. OT Education/Plan Discharge Recommendations Plan/Recommendations: Continue POC Treatment Plan/Plan of Care Patient would benefit from OT for education, treatment and training to promote independence in ADL's, mobility, safety and/or upper extremity function for ADL' s. Plan of Care: ADL Retraining, Functional Mobility, UE Funct Exercise/Act Treatment Duration: Sep 03, 2017 Frequency: 5 times per week Estimated Hrs Per Day: .25 hour per day Agreement: Yes Rehab Potential: Good Time/GCodes Start Time: 11:20 Stop Time: 11:50 Total Time Billed (hr/min): 30 Billed Treatment Time 1 visit-ADL 2 (30 min) LAYA RICE Aug 28, 2017 12:00
--- NOTE | 2017-08-28 12:33 | Progress Note (SOAP) ---
Subjective Date Seen by Provider: Aug 28, 2017 Time Seen by Provider: 12:31 Subjective/Events-last exam Fwup left hip abscess/cellulitis, HTN, DM--insulin requiring, chronic anemia. Went to surgery yesterday for deeper debridement and wound vac replacement. Objective Exam Vital Signs Date Time Temp Pulse Resp B/P (MAP) Pulse Ox O2 Delivery O2 Flow Rate FiO2 08/28/17 08:00 98.6 67 16 95/51 (66) 96 Room Air 08/28/17 04:02 97.2 56 20 101/65 (77) 95 Room Air 08/28/17 00:30 97.9 58 18 99/51 (67) 95 Room Air 08/27/17 22:54 Nasal Cannula 3.00 08/27/17 20:40 98.1 78 18 146/66 (92) 99 Nasal Cannula 3.00 08/27/17 16:00 98.4 66 18 171/72 (105) 98 Room Air I & O 08/28/17 07:00 Intake Total 400 ml Output Total 1425 ml Balance -1025 ml Capillary Refill : Less Than 3 Seconds General Appearance: No Apparent Distress Neck: Supple Respiratory: Lungs Clear Cardiovascular: Regular Rate, Rhythm Gastrointestinal: normal bowel sounds, non tender, soft Extremity: Non Tender, No Calf Tenderness, No Pedal Edema Neurologic/Psychiatric: Alert, Oriented x3 Skin: Other (left hip wound with wound vac in place) Results Lab Laboratory Tests 08/27/17 12:52: Lab Scanned Report Transfusion Reaction Form 08/27/17 17:54: Glucometer 282H 08/27/17 21:14: Glucometer 358H 08/28/17 05:49: Glucometer 76 08/28/17 06:06: White Blood Count 6.4, Red Blood Count 2.93L, Hemoglobin 7.7L, Hematocrit 26L, Mean Corpuscular Volume 87, Mean Corpuscular Hemoglobin 26, Mean Corpuscular Hemoglobin Concent 30L, Red Cell Distribution Width 14.0, Platelet Count 454H, Mean Platelet Volume 9.5, Neutrophils (%) (Auto) 60, Lymphocytes (%) (Auto) 28, Monocytes (%) (Auto) 8, Eosinophils (%) (Auto) 4, Basophils (%) (Auto) 0, Neutrophils # (Auto) 3.9, Lymphocytes # (Auto) 1.8, Monocytes # (Auto) 0.5, Eosinophils # (Auto) 0.2, Basophils # (Auto) 0.0, Prothrombin Time 16.6H, INR Comment 1.3, Sodium Level 140, Potassium Level 3.9, Chloride Level 108H, Carbon Dioxide Level 21, Anion Gap 11, Blood Urea Nitrogen 8, Creatinine 0.92, Estimat Glomerular Filtration Rate > 60, BUN/Creatinine Ratio 9, Glucose Level 65L, Calcium Level 8.4L, Total Bilirubin 0.3, Aspartate Amino Transf (AST/SGOT) 13, Alanine Aminotransferase (ALT/SGPT) 17, Alkaline Phosphatase 126, Total Protein 5.5L, Albumin 2.9L 08/28/17 09:33: Glucometer 169H Microbiology 08/24/17 MRSA Screen - Final, Complete MRSA not isolated Assessment/Plan Assessment/Plan Assess & Plan/Chief Complaint 1. Left hip wound abscess/cellulitis--continue broad spectrum abx, PICC line for intermediate abx, wound vac, DC plans will be for NH with IV abx for at least 6 weeks 2. Hypertension--hold amlodopine due to hypotension 3. DM--insulin requiring--started on levemir with SSI 4. Chronic Anemia--IV iron today and monitor H/H 5. Hypercoagulable State with History of DVT--coumadin restarted as well as lovenox Clinical Quality Measures Admission Status Admission Dx 1. Left hip abscess/cellulitis--admit for IV Vancomycin, IV rocephin and surgery evaluation for debridement 2. Diabetes mellitus-insulin requiring--Levemir with SSI 3. Hypertension--resume home medications DVT/VTE Risk/Contraindication: Risk Factor Score Per Nursin RFS Level Per Nursing on Admit: 4+=Very High SHAKEEL BRUCE DO Aug 28, 2017 12:33
--- NOTE | 2017-08-28 13:18 | Physical Therapy Progress Note ---
Therapy Progress Note PT just received orders from Dr. Russo, however, PT just dismissed patient, on this date, from services secondary to patient is at modified independent PLOF with all gross motor skills and does not require skilled PT intervention. Patient and nursing have been educated to encourage ambulation PRN in [facility]. Thank you for this referral. CECILIA DE OLIVEIRA PT Aug 28, 2017 13:18
--- NOTE | 2017-08-28 14:56 | Diagnostic Imaging Report ---
INDICATION: PICC line placement. TIME OF EXAMINATION: 2:34 PM. COMPARISON: 05/01/2017. FINDINGS: The right upper extremity PICC line has its tip overlying the SVC. No pneumothorax is identified. The lungs are clear. The heart size is stable. IMPRESSION: Satisfactory PICC line placement. Dictated by: Dictated on workstation # [id number]
[2017-08-28] MEDS: VANCOMYCIN INJECTION 750 MG in NS (IVPB) 250 ML IV SCH (15:09)
[2017-08-28 16:00] VITALS: BP 125/56
[2017-08-28] MEDS: cefTRIAXone INJECTION 1,000 MG in NS (IVPB) 50 ML IV SCH (16:10)
[2017-08-28] MEDS: IRON SUCROSE 200 MG/10 ML (VENOFER) VIAL IV SCH (16:39)
[2017-08-28] MEDS: warFARin 2 MG (COUMADIN) TAB PO SCH (17:52)
[2017-08-28 19:31] VITALS: BP 117/56
[2017-08-28] MEDS: ATORVASTATIN 10 MG (LIPITOR) TABLET PO SCH (21:54)
[2017-08-28] MEDS: DONEPEZIL 5 MG (ARICEPT) TAB PO SCH (21:54)
[2017-08-28] MEDS: inSUlin DETERMIR 1 UNIT/0.01 ML (LEVEMIR) CHARGE PER UNIT SQ SCH (21:58)
--- NOTE | 2017-08-28 23:08 | Progress Note-Standard ---
Standard Progress Note Progress Notes/Assess & Plan Time Seen by Provider: 15:35 Progress/Assessment & Plan Pt doing well, no complaints. VSSAF LLE: incisional WV stable with good seal, motor/sensation grossly intact, all compartments soft/NT, foot well perfused S/P repeat I&D/primary closure/application of incisional wound vac post-op wound infection Left hip, POD #1 Continue incisional WV for an additional 3 days; keep pressure at 75mmHg, can remove on 08/30; spoke to WC nurse today and service is aware. Continue to mobilize OOB with PT/OT, WBAT LLE. Current pain control regimen. Anticoagulation per medicine service. Plan discussed with the patient. Questions answered. FAM DODSON DO Aug 28, 2017 23:08
[2017-08-29 00:09] VITALS: BP 127/70
[2017-08-29] MEDS: VANCOMYCIN INJECTION 750 MG in NS (IVPB) 250 ML IV SCH ×2 (02:29→15:33)
[2017-08-29 03:44] VITALS: BP 107/66
[2017-08-29] MEDS: PANTOPRAZOLE 40 MG (PROTONIX) TAB PO SCH (05:34)
[2017-08-29] MEDS: CLINDAMYCIN 600 MG/50 ML IVPB 50 ML IV SCH ×3 (05:34→21:08)
[2017-08-29] MEDS: LACTOBACILLUS Acidoph/Bulgar (LACTINEX/FLORANEX) TAB PO SCH ×3 (05:34→16:31)
[2017-08-29 05:37] LABS: BASOPHILS % (AUTO) 0 % (0-10); EOSINOPHILS # (AUTO) 0.2 10^3/uL (0.0-0.3); EOSINOPHILS % (AUTO) 4 % (0-10); HEMATOCRIT 23 % (35-52); HEMOGLOBIN 7.1 G/DL (11.5-16.0); LYMPHOCYTES # (AUTO) 1.5 X 10^3 (1.0-4.0); LYMPHOCYTES % (AUTO) 26 % (12-44); MEAN CORPUSCULAR HEMOGLOBIN 27 PG (25-34); MEAN CORPUSCULAR HGB CONC 31 G/DL (32-36); MEAN CORPUSCULAR VOLUME 88 FL (80-99); MEAN PLATELET VOLUME 9.4 FL (7.4-10.4); MONOCYTES # (AUTO) 0.6 X 10^3 (0.0-1.0); MONOCYTES % (AUTO) 10 % (0-12); NEUTROPHILS # (AUTO) 3.5 X 10^3 (1.8-7.8); NEUTROPHILS % (AUTO) 60 % (42-75); PLATELET COUNT 387 10^3/uL (130-400); RED BLOOD COUNT 2.59 10^6/uL (4.35-5.85); WHITE BLOOD COUNT 5.8 10^3/uL (4.3-11.0)
[2017-08-29 06:18] LABS: ALBUMIN 2.7 GM/DL (3.2-4.5); BILIRUBIN,TOTAL 0.1 MG/DL (0.1-1.0); CALCIUM 8.1 MG/DL (8.5-10.1); CREATININE SERUM 0.99 MG/DL (0.60-1.30); POTASSIUM 3.8 MMOL/L (3.6-5.0); TOTAL PROTEIN 5.2 GM/DL (6.4-8.2)
[2017-08-29] MEDS: inSUlin ASPART (NovoLOG) 1 UNIT/0.01 ML (CHARGE PER UNIT) SC SCH ×4 (06:20→21:08)
[2017-08-29 06:29] LABS: INR 1.5 (0.8-1.4); PROTHROMBIN TIME PATIENT 17.7 SEC (12.2-14.7)
[2017-08-29 08:00] VITALS: BP 99/61
[2017-08-29] MEDS: COLESTIPOL 1 GM (COLESTID) TAB PO SCH ×2 (08:29→21:08)
[2017-08-29] MEDS: cefTRIAXone INJECTION 1,000 MG in NS (IVPB) 50 ML IV SCH (08:30)
[2017-08-29] MEDS: CARVEDILOL 12.5 MG (COREG) TABLET PO SCH ×2 (09:57→21:08)
[2017-08-29] MEDS: LOSARTAN 50 MG (COZAAR) TAB PO SCH (09:57)
--- NOTE | 2017-08-29 11:00 | Progress Note-Hospitalist ---
Subjective HPI/CC On Admission Date Seen by Provider: Aug 29, 2017 Time Seen by Provider: 11:00 Subjective/Events-last exam Pt doing well Checked meds and labs No pain is reported Abx tolerated DC soon to [facility] per PCP No dyspnea Review of Systems General: Malaise Objective Exam Vital Signs Vital Signs Date Time Temp Pulse Resp B/P (MAP) Pulse Ox O2 Delivery O2 Flow Rate FiO2 08/29/17 08:00 97.0 61 18 99/61 (74) 94 Room Air 08/27/17 22:54 3.00 Capillary Refill : Less Than 3 Seconds General Appearance: No Apparent Distress, WD/WN, Chronically ill Respiratory: Chest Non Tender, Lungs Clear, Normal Breath Sounds, No Accessory Muscle Use, No Respiratory Distress Cardiovascular: Regular Rate, Rhythm, No Edema, No Gallop, No JVD, No Murmur, Normal Peripheral Pulses Neurologic/Psychiatric: Alert, Oriented x3, No Motor/Sensory Deficits, Depressed Affect Results/Procedures Lab Laboratory Tests 08/29/17 05:28 Patient resulted labs reviewed. Assessment/Plan Assessment and Plan Assess & Plan/Chief Complaint Assessment: Left hip abscess s/p I&D x 2 Brittle DM Subtle confusion/dementia Debilitated status h/o DVT given 1 unit of FFP prior to surgery Plan: Tramadol increase frequency if needed since no other stronger pain meds will be given due to delirium in the past Insulin Check labs in am Coumadin restarted Diagnosis/Problems Diagnosis/Problems (1) Abscess of hip, left Status: Acute Assessment & Plan: I&D POD # 1 today maintained on Vanc, Cleocin and Rocephin along with wound vac placed yesterday (2) Cellulitis of left hip Status: Acute (3) History of DVT (deep vein thrombosis) Status: Chronic (4) Chronic anticoagulation Status: Chronic Assessment & Plan: Restart Coumadin today at 1800 (5) Dementia Status: Chronic Qualifiers: Dementia type: unspecified type Dementia behavioral disturbance: without behavioral disturbance Qualified Codes: F03.90 - Unspecified dementia without behavioral disturbance (6) Chronic anticoagulation Status: Chronic (7) Brittle diabetes mellitus Status: Chronic Clinical Quality Measures DVT/VTE Risk/Contraindication: Risk Factor Score Per Nursin RFS Level Per Nursing on Admit: 4+=Very High PERICO ALVA DO Aug 29, 2017 11:00
[2017-08-29 12:00] VITALS: BP 159/71
[2017-08-29] MEDS ORDERED: TROUGH ORDER-PHARMACY XX NR (14:00)
--- NOTE | 2017-08-29 14:53 | Occupational Ther Daily Note ---
OT Current Status-Daily Note Subjective Pt alert, sitting in recliner. Pt agrees to therapy. No c/o pain at this time. Mental Status/Objective Patient Orientation: Person, Place, Time, Situation Functional [place] Measure 0=Not Assessed/NA 4=Minimal Assistance 1=Total Assistance 5=Supervision or Setup 2=Maximal Assistance 6=Modified [place] 3=Moderate Assistance 7=Complete [place] Attachments: Drains, IV ADL-Treatment Nrsg stated that pt was given a bath early in day. Other Treatment Pt completed UE exercises against gravity to increase strength and activity tolerance for daily functional tasks. 4 UE exercises completed 2 sets 10 reps, pt tolerated well though fatigued by end of sets. After therapy, pt sitting in recliner with call light/phone in reach. All needs met in room. OT Short Term Goals Short Term Goals 1=Demonstrate adherence to instructed precautions during ADL tasks. 2=Patient will verbalize/demonstrate understanding of assistive devices/ modifications for ADL. 3=Patient will improve strength/tolerance for activity to enable patient to perform ADL's. OT Intermediate Goals House Mover Supervisor Goals Time Frame: Sep 03, 2017 Eating (FIM): 6 Grooming(FIM): 6 Bathing(FIM): 5 Upper Body Dressing(FIM): 6 Lower Body Dressing(FIM): 5 Toileting(FIM): 6 Transfers (B,C,W/C) (FIM): 6 Toilet/Commode Transfer(FIM): 6 Shower Transfer(FIM): 5 Additional Goals: 1-Demonstrate ADL Tasks, 2-Verbalize Understanding, 3- ImproveStrength/Issac 1=Demonstrate adherence to instructed precautions during ADL tasks. 2=Patient will verbalize/demonstrate understanding of assistive devices/ modifications for ADL. 3=Patient will improve strength/tolerance for activity to enable patient to perform ADL's. OT Education/Plan Discharge Recommendations Plan/Recommendations: Continue POC Treatment Plan/Plan of Care Patient would benefit from OT for education, treatment and training to promote independence in ADL's, mobility, safety and/or upper extremity function for ADL' s. Plan of Care: ADL Retraining, Functional Mobility, UE Funct Exercise/Act Treatment Duration: Sep 03, 2017 Frequency: 5 times per week Estimated Hrs Per Day: .25 hour per day Agreement: Yes Rehab Potential: Good Time/GCodes Start Time: 14:30 Stop Time: 14:45 Total Time Billed (hr/min): 15 Billed Treatment Time 1 visit-EX 1 (15 min) LAYA RICE Aug 29, 2017 14:53
--- NOTE | 2017-08-29 15:41 | OPERATIVE REPORT ---
DATE OF SERVICE: 08/27/2017 PREPROCEDURE DIAGNOSES: 1. Postoperative wound infection, left hip. 2. Status post irrigation and debridement with application of negative pressure wound VAC. POSTPROCEDURE DIAGNOSES: 1. Postoperative wound infection, left hip. 2. Status post irrigation and debridement with application of negative pressure wound VAC. PROCEDURES: 1. Repeat irrigation and excisional debridement postoperative wound infection left hip including skin and subcutaneous tissue; wound size approximately 10 square cm. 2. Primary closure, left hip wound. 3. Application of incisional wound VAC, left hip wound. ATTENDING SURGEON: Dr. Fam Ventura. ANESTHESIA: General endotracheal. ESTIMATED BLOOD LOSS: 25 mL. COMPLICATIONS: None. SPECIMENS: None. DRAINS: Incisional negative pressure wound VAC set at 75 mmHg continuous suction. BRIEF HISTORY AND INDICATIONS: The patient is a very pleasant 67-year-old female who had undergone ORIF of a comminuted intertrochanteric fracture of the left proximal femur on 05/02/2017. She subsequently developed a postsurgical wound infection of her left hip for which I had performed an index irrigation, debridement and application of negative pressure wound VAC on 08/25/2017. The patient is being brought back to the OR today for repeat debridement of her wound. I discussed the operative plan with the patient preoperatively, which included the risks, benefits, potential complications, expected outcomes and long-term treatment plan. The patient gave informed consent to proceed as planned after all of her questions were answered to her satisfaction. PROCEDURE NOTE: After correctly identifying the patient as the patient in the preoperative holding area and after her left hip was appropriately marked, she was transferred to the operating room. Once in the operating room, she had successful induction of general endotracheal anesthesia then she was transferred to standard OR table, placed in the supine position. All bony prominences were meticulously padded. The left hip was then prepped and draped in the routine sterile fashion. Prior to beginning the case, we completed an operating room timeout with all parties involved in the case and agreement and confirmed appropriate antibiotic therapy. Using a 10 blade scalpel and rongeur, I completed a thorough repeat excisional debridement of the left hip wound, removing all noted devitalized and remaining necrotic tissue, which included a very small amount of skin and subcutaneous tissue. The wound was then irrigated with 6 liters of normal saline with pulse lavage. Then upon secondary inspection of the wound any remaining devitalized or necrotic tissue that was encountered was debrided in like fashion. Upon final debridement, the wound had a very healthy appearing soft tissue bed with very good blood supply and all necrotic and devitalized tissue had been debrided. At this point, the wound was closed primarily in layers without excessive tension on the wound edge. The wound was closed with #1 PDS for the deep fascia and subcutaneous tissue, 2-0 PDS for the more superficial subcutaneous tissue and a 3-0 nylon stitch using a simple interrupted technique for the skin. At this point, I applied an incisional wound VAC over the incision. We achieved a very good seal prior to completing the case. Once the wound VAC was applied, the patient was awakened and extubated in the operating room without complications. She was then transferred to the PACU in stable condition and she tolerated this procedure quite well. All counts were correct at the end of the case. PLAN: The patient will have the incisional wound VAC on for a total of 3 days. It will be removed in 3 days' time. The patient will need to continue her empiric antibiotic therapy and given that the infection did track all the way down to the hardware. RECOMMENDATION: Would be for 6 weeks of IV antibiotic therapy, close clinical monitoring and possible need for long-term suppressive antibiotics. As explained to the patient previously, I do not believe that removal of the hardware is prudent given the substantially increased risk of refracture with removal of the cephalomedullary nail. The patient verbalized her understanding of this plan. The patient will be admitted to the floor, her intravenous antibiotics will be continued. She will be given the appropriate VTE prophylaxis and mobilized with physical therapy and occupational therapy being able to bear weight as tolerated on her left lower extremity. Job ID: [id number] DocumentID: [id number] Dictated Date: 08/29/2017 13:49:08 Fitting Room Supervisor Date: 08/29/2017 15:41:43 Dictated By: FAM MEJIA
[2017-08-29 16:53] VITALS: BP 141/69
[2017-08-29] MEDS: warFARin 2 MG (COUMADIN) TAB PO SCH (17:51)
[2017-08-29 19:54] VITALS: BP 182/77
[2017-08-29] MEDS: DONEPEZIL 5 MG (ARICEPT) TAB PO SCH (21:08)
[2017-08-29] MEDS: inSUlin DETERMIR 1 UNIT/0.01 ML (LEVEMIR) CHARGE PER UNIT SQ SCH (21:08)
[2017-08-29] MEDS: ATORVASTATIN 10 MG (LIPITOR) TABLET PO SCH (21:09)
[2017-08-30] VITALS: BP 137/73
[2017-08-30] MEDS: CLINDAMYCIN 600 MG/50 ML IVPB 50 ML IV SCH (05:16)
[2017-08-30] MEDS: LACTOBACILLUS Acidoph/Bulgar (LACTINEX/FLORANEX) TAB PO SCH ×3 (05:24→17:15)
[2017-08-30] MEDS: PANTOPRAZOLE 40 MG (PROTONIX) TAB PO SCH (05:24)
[2017-08-30 05:26] LABS: BASOPHILS % (AUTO) 1 % (0-10); EOSINOPHILS # (AUTO) 0.2 10^3/uL (0.0-0.3); EOSINOPHILS % (AUTO) 4 % (0-10); HEMATOCRIT 23 % (35-52); HEMOGLOBIN 7.1 G/DL (11.5-16.0); LYMPHOCYTES # (AUTO) 1.5 X 10^3 (1.0-4.0); LYMPHOCYTES % (AUTO) 28 % (12-44); MEAN CORPUSCULAR HEMOGLOBIN 27 PG (25-34); MEAN CORPUSCULAR HGB CONC 31 G/DL (32-36); MEAN CORPUSCULAR VOLUME 87 FL (80-99); MEAN PLATELET VOLUME 9.4 FL (7.4-10.4); MONOCYTES # (AUTO) 0.5 X 10^3 (0.0-1.0); MONOCYTES % (AUTO) 10 % (0-12); NEUTROPHILS # (AUTO) 3.2 X 10^3 (1.8-7.8); NEUTROPHILS % (AUTO) 58 % (42-75); PLATELET COUNT 420 10^3/uL (130-400); RED BLOOD COUNT 2.59 10^6/uL (4.35-5.85); RED CELL DISTRIBUTION WIDTH 14.2 % (10.0-14.5); WHITE BLOOD COUNT 5.5 10^3/uL (4.3-11.0)
[2017-08-30 05:43] LABS: INR 1.6 (0.8-1.4); PROTHROMBIN TIME PATIENT 19.1 SEC (12.2-14.7)
[2017-08-30 05:45] LABS: ALANINE AMINOTRANSFERASE 10 U/L (0-55); ALBUMIN 2.7 GM/DL (3.2-4.5); ALKALINE PHOSPHATASE 111 U/L (40-136); BILIRUBIN,TOTAL 0.2 MG/DL (0.1-1.0); BUN/CREATININE RATIO 10; CALCIUM 8.3 MG/DL (8.5-10.1); CARBON DIOXIDE 23 MMOL/L (21-32); CHLORIDE 109 MMOL/L (98-107); CREATININE SERUM 0.84 MG/DL (0.60-1.30); GFR ESTIMATED > 60; POTASSIUM 3.5 MMOL/L (3.6-5.0); SODIUM 141 MMOL/L (135-145); TOTAL PROTEIN 5.3 GM/DL (6.4-8.2)
[2017-08-30 05:51] LABS: VANCOMYCIN,TROUGH 13.3 UG/ML (10.0-20.0)
[2017-08-30 05:57] LABS: GLUCOSE 42 MG/DL (70-105)
[2017-08-30] MEDS ORDERED: TROUGH ORDER-PHARMACY XX NR (06:00)
[2017-08-30] MEDS: inSUlin ASPART (NovoLOG) 1 UNIT/0.01 ML (CHARGE PER UNIT) SC SCH ×4 (06:08→20:52)
[2017-08-30 08:00] VITALS: BP 150/78
[2017-08-30] MEDS: CARVEDILOL 12.5 MG (COREG) TABLET PO SCH ×2 (08:36→20:53)
[2017-08-30] MEDS: VANCOMYCIN 1250 MG/NS 250 ML IVPB IV SCH ×2 (08:36)
[2017-08-30] MEDS: COLESTIPOL 1 GM (COLESTID) TAB PO SCH ×2 (08:37→20:53)
[2017-08-30] MEDS: IRON SUCROSE 200 MG/10 ML (VENOFER) VIAL IV SCH (08:37)
[2017-08-30] MEDS: LOSARTAN 50 MG (COZAAR) TAB PO SCH (08:37)
[2017-08-30] MEDS: cefTRIAXone INJECTION 1,000 MG in NS (IVPB) 50 ML IV SCH (08:51)
--- NOTE | 2017-08-30 11:40 | Occupational Ther Daily Note ---
OT Current Status-Daily Note Subjective Pt alert, lying in bed. Pt has gotten wound vac d/c'd. Pt agrees to therapy. No c/o pain at this time. Mental Status/Objective Functional [place] Measure 0=Not Assessed/NA 4=Minimal Assistance 1=Total Assistance 5=Supervision or Setup 2=Maximal Assistance 6=Modified [place] 3=Moderate Assistance 7=Complete [place] Attachments: IV ADL-Treatment Supine to sitting using bedrail, mod I. Ambulated to bathroom using FWW, mod I. Transfer to shower using shower bench, grabbar and FWW, mod I. Bathing using long handle sponge, shower bench and grabbars, mod I. AE to doff socks by self. Pt has AE for lower body dressing at home and is proficient in using. Toilet transfer with grabbar and FWW, mod I. Toileting using grabbar and FWW , mod I. Pt then ambulated back to bed and transferred into bed by self using bedrail. After therapy, pt lying in bed with call light/phone in reach. All needs met in room. Bathing (FIM): 6 Upper Body (FIM): 5 (Using hospital gown only is able to complete upper body dressing. Does not have street clothes to use at this time.) Lower Body Dressing (FIM): 4 (CGA when placing feet into briefs.) Toileting (FIM): 6 Transfers (B, C, W/C) (FIM): 6 Toilet/Commode Transfer (FIM): 6 Shower Transfer(FIM): 6 OT Short Term Goals Short Term Goals 1=Demonstrate adherence to instructed precautions during ADL tasks. 2=Patient will verbalize/demonstrate understanding of assistive devices/ modifications for ADL. 3=Patient will improve strength/tolerance for activity to enable patient to perform ADL's. OT Intermediate Goals Law Enforcement Officer Goals Time Frame: Sep 03, 2017 Eating (FIM): 6 Grooming(FIM): 6 Bathing(FIM): 5 Upper Body Dressing(FIM): 6 Lower Body Dressing(FIM): 5 Toileting(FIM): 6 Transfers (B,C,W/C) (FIM): 6 Toilet/Commode Transfer(FIM): 6 Shower Transfer(FIM): 5 Additional Goals: 1-Demonstrate ADL Tasks, 2-Verbalize Understanding, 3- ImproveStrength/Issac 1=Demonstrate adherence to instructed precautions during ADL tasks. 2=Patient will verbalize/demonstrate understanding of assistive devices/ modifications for ADL. 3=Patient will improve strength/tolerance for activity to enable patient to perform ADL's. OT Education/Plan Discharge Recommendations Plan/Recommendations: Continue POC Treatment Plan/Plan of Care Patient would benefit from OT for education, treatment and training to promote independence in ADL's, mobility, safety and/or upper extremity function for ADL' s. Plan of Care: ADL Retraining, Functional Mobility, UE Funct Exercise/Act Treatment Duration: Sep 03, 2017 Frequency: 5 times per week Estimated Hrs Per Day: .25 hour per day Agreement: Yes Rehab Potential: Good Time/GCodes Start Time: 10:40 Stop Time: 10:25 Total Time Billed (hr/min): 45 Billed Treatment Time 1 visit-ADL 3 (45 min) LAYA RICE Aug 30, 2017 11:40
--- NOTE | 2017-08-30 13:08 | Progress Note (SOAP) ---
Subjective Date Seen by Provider: Aug 30, 2017 Time Seen by Provider: 13:05 Subjective/Events-last exam Fwup left hip abscess/cellulitis, HTN, DM--insulin requiring, chronic anemia. Off wound vac. Wound has been closed. Objective Exam Vital Signs Date Time Temp Pulse Resp B/P (MAP) Pulse Ox O2 Delivery O2 Flow Rate FiO2 08/30/17 08:00 97.2 64 22 150/78 (102) 99 Room Air 08/30/17 00:00 97.8 67 18 137/73 (94) 98 Room Air 08/29/17 19:54 69 182/77 (112) 08/29/17 16:53 98.0 67 20 141/69 (93) 99 Room Air I & O 08/30/17 07:00 Intake Total 1530 ml Output Total 400 ml Balance 1130 ml Capillary Refill : Less Than 3 Seconds General Appearance: No Apparent Distress Neck: Supple Respiratory: Lungs Clear Cardiovascular: Regular Rate, Rhythm Gastrointestinal: normal bowel sounds, non tender, soft Extremity: Non Tender, No Calf Tenderness, No Pedal Edema Neurologic/Psychiatric: Alert, Oriented x3 Skin: Other (left hip with dry dressing in place) Results Lab Laboratory Tests 08/29/17 14:25: Vancomycin Level Trough 20.3H 08/29/17 16:05: Glucometer 297H 08/29/17 20:36: Glucometer 305H 08/30/17 05:19: Vancomycin Level Trough 13.3, White Blood Count 5.5, Red Blood Count 2.59L, Hemoglobin 7.1L, Hematocrit 23L, Mean Corpuscular Volume 87, Mean Corpuscular Hemoglobin 27, Mean Corpuscular Hemoglobin Concent 31L, Red Cell Distribution Width 14.2, Platelet Count 420H, Mean Platelet Volume 9.4, Neutrophils (%) (Auto ) 58, Lymphocytes (%) (Auto) 28, Monocytes (%) (Auto) 10, Eosinophils (%) (Auto ) 4, Basophils (%) (Auto) 1, Neutrophils # (Auto) 3.2, Lymphocytes # (Auto) 1.5 , Monocytes # (Auto) 0.5, Eosinophils # (Auto) 0.2, Basophils # (Auto) 0.0, Prothrombin Time 19.1H, INR Comment 1.6H, Sodium Level 141, Potassium Level 3.5L , Chloride Level 109H, Carbon Dioxide Level 23, Anion Gap 9, Blood Urea Nitrogen 8, Creatinine 0.84, Estimat Glomerular Filtration Rate > 60, BUN/ Creatinine Ratio 10, Glucose Level 42*L, Calcium Level 8.3L, Total Bilirubin 0.2 , Aspartate Amino Transf (AST/SGOT) 10, Alanine Aminotransferase (ALT/SGPT) 10, Alkaline Phosphatase 111, Total Protein 5.3L, Albumin 2.7L 08/30/17 06:23: Glucometer 55*L 08/30/17 06:53: Glucometer 110 08/30/17 11:13: Glucometer 321H Microbiology 08/24/17 MRSA Screen - Final, Complete MRSA not isolated Assessment/Plan Assessment/Plan Assess & Plan/Chief Complaint 1. Left hip wound abscess/cellulitis--Cx from [facility] growing out E. coli-- can narrow abx down and will likely go with Rocephin to [facility]--awaiting approval 2. Hypertension--stable 3. DM--insulin requiring--started on levemir with SSI 4. Chronic Anemia--give 1 u pRBCs today and repeat H/H in AM 5. Hypercoagulable State with History of DVT--coumadin restarted as well as lovenox, INR at 1.6 Clinical Quality Measures Admission Status Admission Dx 1. Left hip abscess/cellulitis--admit for IV Vancomycin, IV rocephin and surgery evaluation for debridement 2. Diabetes mellitus-insulin requiring--Levemir with SSI 3. Hypertension--resume home medications DVT/VTE Risk/Contraindication: Risk Factor Score Per Nursin RFS Level Per Nursing on Admit: 4+=Very High SHAKEEL BRUCE DO Aug 30, 2017 1:08 pm
[2017-08-30] MEDS ORDERED: CLINDAMYCIN 600 MG/50 ML IVPB 50 ML IV SCH (14:00)
[2017-08-30 16:00] VITALS: BP 133/74
[2017-08-30] MEDS ORDERED: NS IV 500 ML 500 ML IV SCH (16:00)
[2017-08-30 16:10] VITALS: BP 133/74
[2017-08-30 16:15] VITALS: BP 146/65
[2017-08-30] MEDS: warFARin 2 MG (COUMADIN) TAB PO SCH (17:58)
[2017-08-30 18:30] VITALS: BP 137/74
[2017-08-30] MEDS: inSUlin DETERMIR 1 UNIT/0.01 ML (LEVEMIR) CHARGE PER UNIT SQ SCH (20:53)
[2017-08-30] MEDS: DONEPEZIL 5 MG (ARICEPT) TAB PO SCH (20:53)
[2017-08-30] MEDS: ATORVASTATIN 10 MG (LIPITOR) TABLET PO SCH (20:53)
[2017-08-31] VITALS: BP 177/89
[2017-08-31 01:04] VITALS: BP 177/89
[2017-08-31 04:40] VITALS: BP 163/72
[2017-08-31] MEDS: LACTOBACILLUS Acidoph/Bulgar (LACTINEX/FLORANEX) TAB PO SCH ×2 (06:00→11:05)
[2017-08-31] MEDS: PANTOPRAZOLE 40 MG (PROTONIX) TAB PO SCH (06:00)
[2017-08-31 06:11] LABS: BASOPHILS # (AUTO) 0.1 10^3/uL (0.0-0.1); BASOPHILS % (AUTO) 1 % (0-10); EOSINOPHILS # (AUTO) 0.3 10^3/uL (0.0-0.3); EOSINOPHILS % (AUTO) 5 % (0-10); HEMATOCRIT 27 % (35-52); HEMOGLOBIN 8.4 G/DL (11.5-16.0); LYMPHOCYTES # (AUTO) 1.5 X 10^3 (1.0-4.0); LYMPHOCYTES % (AUTO) 30 % (12-44); MEAN CORPUSCULAR HEMOGLOBIN 27 PG (25-34); MEAN CORPUSCULAR HGB CONC 31 G/DL (32-36); MEAN CORPUSCULAR VOLUME 87 FL (80-99); MEAN PLATELET VOLUME 9.4 FL (7.4-10.4); MONOCYTES # (AUTO) 0.4 X 10^3 (0.0-1.0); MONOCYTES % (AUTO) 9 % (0-12); NEUTROPHILS # (AUTO) 2.7 X 10^3 (1.8-7.8); NEUTROPHILS % (AUTO) 55 % (42-75); PLATELET COUNT 421 10^3/uL (130-400); RED BLOOD COUNT 3.07 10^6/uL (4.35-5.85); RED CELL DISTRIBUTION WIDTH 14.5 % (10.0-14.5)
[2017-08-31 06:36] LABS: ALANINE AMINOTRANSFERASE 10 U/L (0-55); ALBUMIN 2.9 GM/DL (3.2-4.5); ALKALINE PHOSPHATASE 123 U/L (40-136); BILIRUBIN,TOTAL 0.3 MG/DL (0.1-1.0); BUN/CREATININE RATIO 8; CALCIUM 8.5 MG/DL (8.5-10.1); CARBON DIOXIDE 24 MMOL/L (21-32); CHLORIDE 109 MMOL/L (98-107); CREATININE SERUM 0.85 MG/DL (0.60-1.30); GFR ESTIMATED > 60; POTASSIUM 3.7 MMOL/L (3.6-5.0); SODIUM 140 MMOL/L (135-145); TOTAL PROTEIN 5.7 GM/DL (6.4-8.2)
[2017-08-31] MEDS: inSUlin ASPART (NovoLOG) 1 UNIT/0.01 ML (CHARGE PER UNIT) SC SCH ×2 (06:49→11:04)
[2017-08-31 06:53] LABS: GLUCOSE 59 MG/DL (70-105)
[2017-08-31 08:00] VITALS: BP 185/82
[2017-08-31] MEDS: cefTRIAXone INJECTION 1,000 MG in NS (IVPB) 50 ML IV SCH (08:21)
[2017-08-31] MEDS: COLESTIPOL 1 GM (COLESTID) TAB PO SCH (08:21)
[2017-08-31] MEDS: CARVEDILOL 12.5 MG (COREG) TABLET PO SCH (08:21)
[2017-08-31] MEDS: VANCOMYCIN 1250 MG/NS 250 ML IVPB IV SCH ×2 (08:21)
[2017-08-31] MEDS: LOSARTAN 50 MG (COZAAR) TAB PO SCH (08:21)
--- NOTE | 2017-08-31 11:15 | Occupational Ther Daily Note ---
OT Current Status-Daily Note Subjective Pt alert, sitting on toilet. Pt agrees to therapy. No c/o pain at this time. Mental Status/Objective Patient Orientation: Person, Place, Time, Situation Functional [place] Measure 0=Not Assessed/NA 4=Minimal Assistance 1=Total Assistance 5=Supervision or Setup 2=Maximal Assistance 6=Modified [place] 3=Moderate Assistance 7=Complete [place] ADL-Treatment Toileting (FIM): 5 (Supervision for safety.) Other Treatment UE exercises with medium resistance theraband to increase strength and activity tolerance for daily functional tasks. 3 exercises, 3 sets 10 reps each. After therapy, pt sitting in recliner with call light/phone in reach. Daughter present in room. All needs met in room. Education OT Patient Education: Exercise program, Home exercise program Teaching Recipient: Patient Teaching Methods: Demonstration, Discussion Response to Teaching: Return Demonstration, Reinforcement Needed OT Short Term Goals Short Term Goals 1=Demonstrate adherence to instructed precautions during ADL tasks. 2=Patient will verbalize/demonstrate understanding of assistive devices/ modifications for ADL. 3=Patient will improve strength/tolerance for activity to enable patient to perform ADL's. OT Pool Cleaner Goals Intermediate Goals Time Frame: Sep 03, 2017 Eating (FIM): 6 Grooming(FIM): 6 Bathing(FIM): 5 Upper Body Dressing(FIM): 6 Lower Body Dressing(FIM): 5 Toileting(FIM): 6 Transfers (B,C,W/C) (FIM): 6 Toilet/Commode Transfer(FIM): 6 Shower Transfer(FIM): 5 Additional Goals: 1-Demonstrate ADL Tasks, 2-Verbalize Understanding, 3- ImproveStrength/Issac 1=Demonstrate adherence to instructed precautions during ADL tasks. 2=Patient will verbalize/demonstrate understanding of assistive devices/ modifications for ADL. 3=Patient will improve strength/tolerance for activity to enable patient to perform ADL's. OT Education/Plan Discharge Recommendations Plan/Recommendations: Continue POC Treatment Plan/Plan of Care Patient would benefit from OT for education, treatment and training to promote independence in ADL's, mobility, safety and/or upper extremity function for ADL' s. Plan of Care: ADL Retraining, Functional Mobility, UE Funct Exercise/Act Treatment Duration: Sep 03, 2017 Frequency: 5 times per week Estimated Hrs Per Day: .25 hour per day Agreement: Yes Rehab Potential: Good Time/GCodes Start Time: 10:30 Stop Time: 10:45 Total Time Billed (hr/min): 15 Billed Treatment Time 1 visit-FA 1 (15 min) LAYA RICE Aug 31, 2017 11:15
[2017-08-31] MEDS ORDERED: CEFT1PIG IV (11:44)
[2017-08-31] MEDS ORDERED: INSU100V6 SC (11:44)
[2017-08-31] MEDS ORDERED: ACID1TAB PO (11:44)
--- NOTE | 2017-08-31 11:48 | Discharge Inst-Skilled Nursing ---
Discharge Inst-Skilled NF Patient Instructions Patient Problems: Left hip abscess--S/P debridement Diabetes mellitus--insulin requiring Hypertension Chronic anemia Consult/Follow Up/Orders Follow Up Appt.: With me in 3 weeks Skilled NF Admit to: Certification (SNF) I certify that SNF services are required to be given on an inpatient basis because of the above named patient's need for long-term care on a continuing basis for the conditions(s) for which he/she was receiving inpatient hospital services prior to his/her transfer to the SNF. Intermediate Facility Order: Nursing Services, Food And Beverage Controller-Evaluate & Treat, Physical Therapy-Evaluate & Treat, Wound Care-Eval/Treat (island dressing ) Discharge Diet: ADA Diet Daily Activity as Tolerated: Yes New & Resume Previous Orders Other Instructions CBC, Chem7 and PT/INR in 1 week Leyla Russo Aug 31, 2017 11:45 Pneu Vac Indicated: Yes LEYLA RUSSO DO Aug 31, 2017 11:48 am
[2017-08-31 12:34] VITALS: BP 178/81
[2017-08-31 14:30] VITALS: BP 178/81
[2017-09-01] MEDS ORDERED: TROUGH ORDER-PHARMACY XX NR (07:00)
--- NOTE | 2017-09-25 08:53 | Discharge Summary ---
Diagnosis/Chief Complaint Date of Admission Aug 23, 2017 at 19:30 Date of Discharge Aug 31, 2017 at 14:05 Discharge Date: Aug 31, 2017 Admission Diagnosis Admission Diagnosis Surgical wound infection Left hip Discharge Diagnosis Same Reason Hospital Visit Ms. De Leon is a pleasant 67 y/o female with h/o multiple medical morbidities whom is s/p ORIF intertrochanteric fracture per myself on 05/02/2017. She was last seen in my office for follow up on 06/26/2017. At that time she had a small amount of superficial wound dehiscence and mild drainage. She was placed on oral Keflex and asked to follow up in 2 weeks for close observation of her wound. She was unable to make that follow up appointment for social reasons. She says that the wound had formed a large scab subsequent to that visit which began draining copious fluid about a week ago. The patient was seen yesterday at a local urgent care and later admitted here for a wound infection. She denies hip pain with ROM or ambulation/weight bearing. She also denies f/c/ns, n /v or other constitutional symptoms. She currently c/o very little pain and has no other complaints at this time. Discharge Summary Hospital Course Hospital Course The patient was admitted to the hospital on 08/23/2017 with a surgical wound infection Left hip. She was taken to the OR where she underwent a successful I& D with placement of a NPWV. She was subsequently taken back to the OR for a repeat I&D with primary closure of the wound. She tolerated both procedures well without complications. She was placed on the appropriate antibiotics and VTE prophylaxis. She progressed well with PT/OT daily. Her LLE remained N/V/I throughout her hospital stay. Her pain remained controlled. She completed her hospital stay without adverse events. Procedures I&D surgical wound infection Left hip. Discharge Physical Examination Allergies: Coded Allergies: Penicillins (Verified Allergy, Intermediate, HIVES, 05/28/17) hydrocodone (Verified Adverse Reaction, Unknown, VOMITING, 05/28/17) General Appearance: Alert, Oriented X3, Cooperative HEENT: Atraumatic, PERRLA Respiratory: Normal Air Movement Cardiovascular: Regular Rate Abdominal: Soft, No Tenderness Extremities: No Edema, No Tenderness/Swelling Neuro: Normal Gait, Normal Speech, Strength at 5/5 X4 Ext, Sensation Intact, Cranial Nerves 3-12 NL Psych/Mental Status: Mental Status NL Discharge Home Medications Reviewed and agree with Discharge Medication list on patient's Discharge Instruction sheet Instructions to Patient/Family Please see electronic discharge instructions given to patient. Clinical Quality Measures DVT/VTE Risk/Contraindication: Risk Factor Score Per Nursin RFS Level Per Nursing on Admit: 4+=Very High FAM DODSON DO Sep 25, 2017 08:53
== END 2017-08-31 14:05 | DRG 857 ==
LOC: 4TH 19:30
PROVIDERS: ADMIT Family Medicine; ATTEND Family Medicine
PROC: 0JBM0ZZ Excision of Left Upper Leg Subcutaneous Tissue and Fascia, Open Approach (ICD-10-PCS; principal; 2017-08-25 08:01)
PROC: 0JQL0ZZ Repair Right Upper Leg Subcutaneous Tissue and Fascia, Open Approach (ICD-10-PCS; 2017-08-27)
DX: T81.4XXA Infection following a procedure, initial encounter (principal); L03.116 Cellulitis of left lower limb; E11.9 Type 2 diabetes mellitus without complications; Z79.4 Long term (current) use of insulin; I10 Essential (primary) hypertension; Z86.73 Personal history of transient ischemic attack (TIA), and cerebral infarction without residual deficits; M85.80 Other specified disorders of bone density and structure, unspecified site; R41.3 Other amnesia; F03.90 Unspecified dementia, unspecified severity, without behavioral disturbance, psychotic disturbance, mood disturbance, and anxiety; Z85.41 Personal history of malignant neoplasm of cervix uteri; Z90.710 Acquired absence of both cervix and uterus; Z87.440 Personal history of urinary (tract) infections
CPT/HCPCS: 36415; 36569; 71045; 76937; 80053; 80202; 82962; 83540; 85018; 85025; 85610; 86850; 86900; 86901; 86920; 87081; 94664

== ENCOUNTER 2018-02-28 14:40 | Inpatient (IN) | payer MEDICARE, MEDICAID ==
[~2018-02-28] VITALS: Ht 157.5 cm; Wt 76.2 kg
[~2018-02-28 14:40] MED LIST changes: -AMLO5TAB2 PO; +AMLO5TAB7 PO; +CEFT1PIG IV; +COLE1TAB PO; -LOSA50TA36 PO; +LOSA50TA7 PO; +METF-399 PO; -METF10002 PO
[2018-02-28] MEDS ORDERED: ANTACID SUSP 30 ML UDC (MYLANTA) PO PRN (16:15)
[2018-02-28] MEDS ORDERED: MILK OF MAGNESIA 400 MG/5 ML 30 ML UDC PO PRN (16:15)
[2018-02-28] MEDS ORDERED: ACETAMINOPHEN 500 MG TAB (TYLENOL) PO PRN (16:15)
[2018-02-28] MEDS ORDERED: MELATONIN 3 MG TABLET PO PRN (16:15)
[2018-02-28] MEDS ORDERED: ONDANSETRON 4 MG/2 ML (SDV) Z0FRAN IV PRN (16:15)
[2018-02-28] MEDS ORDERED: BENZONATATE 100 MG (TESSALON) CAPSULE PO PRN (16:15)
[2018-02-28 17:15] VITALS: BP 123/76
--- NOTE | 2018-02-28 17:15 | NUR ---
NEAL GRANADOS admitted to room 433-1, with an admitting diagnosis of FX PELVIS, on 02/28/18 from [facility] via AMBULANCE, accompanied by AMBULANCE DRIVERS.NEAL GRANADOS introduced to surroundings, call light, bed controls, phone, TV, temperature control, lights, meal times, smoking policy, visitor policy, side rail policy, bathrooms and showers. Patient Rights given to patient in the handbook.NEAL GRANADOS verbalizes understanding that [facility] is not responsible for the loss or damage to any personal effects or valuables that are kept in the patients posession during their hospitalization. The following Patient Care Plans were discussed with the PT: Discharge Planning, PAIN CONTROL,IV THERAPY, and TESTS AND PROCEDURES. NEAL GRANADOS verbalizes understanding of Interdisciplinary Patient Education. Patient and/or family were informed about the Rapid Response Team and its purpose.
[2018-02-28] MEDS ORDERED: ACETAMINOPHEN 325 MG TABLET PO PRN (17:30)
[2018-02-28] MEDS ORDERED: ASCO10006 PO (18:38)
[2018-02-28] MEDS ORDERED: inSUlin ASPART (NovoLOG) 1 UNIT/0.01 ML (CHARGE PER UNIT) SC ONE (18:45)
[2018-02-28] MEDS ORDERED: OMEG-160 PO (18:52)
[2018-02-28] MEDS ORDERED: CINN500C2 PO (18:52)
[2018-02-28] MEDS ORDERED: CYAN100088 PO (18:52)
[2018-02-28] MEDS ORDERED: CHOL10007 PO (18:52)
[2018-02-28] MEDS ORDERED: CALC-210 PO (18:52)
[2018-02-28] MEDS ORDERED: INSU100V6 SC (18:52)
[2018-02-28 20:00] VITALS: BP 137/66
[2018-02-28] MEDS: ATORVASTATIN 10 MG (LIPITOR) TABLET PO SCH (20:26)
[2018-02-28] MEDS ORDERED: ATORVASTATIN 40 MG (LIPITOR) TABLET PO SCH (21:00)
[2018-02-28] MEDS: inSUlin ASPART (NovoLOG) 1 UNIT/0.01 ML (CHARGE PER UNIT) SC SCH (21:09)
[2018-03-01] VITALS (7 sets, daily range): BP systolic 138–173; BP diastolic 71–88
[2018-03-01] MEDS: inSUlin ASPART (NovoLOG) 1 UNIT/0.01 ML (CHARGE PER UNIT) SC SCH ×6 (06:41→21:10)
[2018-03-01 07:02] LABS: BASOPHILS # (AUTO) 0.1 10^3/uL (0.0-0.1); BASOPHILS % (AUTO) 1 % (0-10); EOSINOPHILS # (AUTO) 0.1 10^3/uL (0.0-0.3); EOSINOPHILS % (AUTO) 1 % (0-10); HEMATOCRIT 39 % (35-52); HEMOGLOBIN 12.4 G/DL (11.5-16.0); LYMPHOCYTES # (AUTO) 1.7 X 10^3 (1.0-4.0); LYMPHOCYTES % (AUTO) 16 % (12-44); MEAN CORPUSCULAR HEMOGLOBIN 27 PG (25-34); MEAN CORPUSCULAR HGB CONC 32 G/DL (32-36); MEAN CORPUSCULAR VOLUME 87 FL (80-99); MEAN PLATELET VOLUME 9.7 FL (7.4-10.4); MONOCYTES # (AUTO) 0.7 X 10^3 (0.0-1.0); MONOCYTES % (AUTO) 7 % (0-12); NEUTROPHILS # (AUTO) 8.3 X 10^3 (1.8-7.8); NEUTROPHILS % (AUTO) 76 % (42-75); PLATELET COUNT 557 10^3/uL (130-400); RED BLOOD COUNT 4.53 10^6/uL (4.35-5.85); RED CELL DISTRIBUTION WIDTH 13.2 % (10.0-14.5)
[2018-03-01 07:20] LABS: INR 1.8 (0.8-1.4); PROTHROMBIN TIME PATIENT 20.5 SEC (12.2-14.7)
[2018-03-01 07:22] LABS: CALCIUM 9.5 MG/DL (8.5-10.1); CREATININE SERUM 1.75 MG/DL (0.60-1.30); POTASSIUM 4.6 MMOL/L (3.6-5.0)
--- NOTE | 2018-03-01 08:50 | NUR ---
ULTRAM 50MG PO. NOT CURRENTLY C/O PAIN, BUT WILL BE GETTING UP TO CHAIR.
[2018-03-01] MEDS ORDERED: OMG1KC PO (09:11)
[2018-03-01] MEDS ORDERED: VIT1CAPS9 PO (09:11)
[2018-03-01] MEDS ORDERED: ASCO10006 PO (09:11)
[2018-03-01] MEDS ORDERED: ACET325T49 PO (09:11)
[2018-03-01] MEDS ORDERED: CYAN100081 PO (09:11)
[2018-03-01] MEDS ORDERED: CALC-706 PO (09:11)
[2018-03-01] MEDS ORDERED: CINN500C2 PO (09:11)
[2018-03-01] MEDS ORDERED: INSU100V6 SQ (09:11)
[2018-03-01] MEDS ORDERED: WARF2.5T82 PO (09:11)
[2018-03-01] MEDS ORDERED: CHOL10007 PO (09:11)
[2018-03-01] MEDS ORDERED: TRAM50TA2 PO (09:17)
--- NOTE | 2018-03-01 09:17 | NUR ---
UPDATED MED REC WITH MAR FROM [facility] [place]
--- NOTE | 2018-03-01 10:09 | History & Physical-Hospitalist ---
PERICO ALVA DO 03/01/18 1009: History of Present Illness HPI/Chief Complaint CC: Fractured pelvis pain HPI: This is a 68-year-old white female with prior history of multiple fractures in the past who resides in [place] and sees Dr. Reynolds is her primary care provider who presents as a direct admission from [place] ER due to severe pelvic pain which was so severe prompting multiple ER visits for pain so she was transferred here with orthopedic consultation request. Currently she is having a great deal of diarrhea C. difficile was sent off but her pelvic pain seems to be improved with just positioning in the bed. Inpatient rehabilitation has been consulted and she has been there before. At this current time we will work on the frequent stools with Questran await C. difficile check from the lab and restart all home meds. Overall guarded prognosis long-term given her somewhat young age and such multiple medical problems. Source: patient, RN/MD Exam Limitations: no limitations Date Seen 03/01/18 Time Seen by a Provider: 11:00 Attending Physician Sarita Luna MD PCP Leyla Russo DO Referring Physician Date of Admission Feb 28, 2018 at 17:12 Home Medications & Allergies Home Medications Reviewed patient Home Medication Reconciliation performed by pharmacy medication reconciliations apartment maintenance technician and/or nursing. Patients Allergies have been reviewed. Allergies Allergies Coded Allergies Penicillins (Verified Allergy, Intermediate, HIVES, 05/28/17) hydrocodone (Verified Adverse Reaction, Unknown, VOMITING, 05/28/17) Past Nblnnap-Pfmhte-Zcejsi Hx Past Med/Social Hx: Reviewed Nursing Past Med/Soc Hx, Reviewed and Corrections made Patient Social History Marrital Status: single Employed/Student: retired Alcohol Use: Denies Use Recreational Drug Use: No Smoking Status: Former Smoker Former Smoker, Quit: Feb 28, 1979 2nd Hand Smoke Exposure: No Physical Abuse Screen: No Sexual Abuse: No Recent Foreign Travel: No Contact w/other who traveled: No Recent Hopitalizations: No Recent Infectious Disease Expo: No Immunizations Up To Date Date of Pneumonia Vaccine: Dec 15, 2017 Date of Influenza Vaccine: Nov 30, 2017 Seasonal Allergies Seasonal Allergies: No Past Medical History Surgeries: Bladder Surgery, Section, Gallbladder, Hysterectomy Currently Using CPAP: No Currently Using BIPAP: No Cardiac: Deep Vein Thrombosis, Hypertension Neurological: Dementia, Stroke Reproductive: No Sexually Transmitted Disease: No HIV/AIDS: No Female Reproductive Disorders: Denies Genitourinary: Bladder Infection, UTI-Chronic Musculoskeletal: Arthritis, Fractures Endocrine: Diabetes, Insulin dep Are Your Blood Sugars Over 250: Yes Loss of Vision: Denies Hearing Impairment: Denies Cancer: Cervical Did You Recieve Any Treatments: Yes What Type of Treatment Did You: Surgical Intervention History of Blood Disorders: 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) Family History Asthma 19 FATHER Diabetes mellitus 19 FATHER 19 MOTHER Hypertension 19 FATHER 19 MOTHER No Pertinent Family Hx, Hypertension Review of Systems Constitutional: see HPI, dizziness, malaise, weakness EENTM: no symptoms reported Respiratory: no symptoms reported Cardiovascular: no symptoms reported Gastrointestinal: diarrhea Genitourinary: no symptoms reported Musculoskeletal: joint pain Skin: no symptoms reported Psychiatric/Neurological: No Symptoms Reported All Other Systems Reviewed Negative Unless Noted: Yes Physical Exam Physical Exam Vital Signs Vital Signs - First Documented 02/28/18 17:15 Temp 97.7 Pulse 84 Resp 18 B/P (MAP) 123/76 (92) Pulse Ox 97 O2 Delivery Room Air Capillary Refill : Less Than 3 Seconds Height, Weight, BMI Height: 5'2.00" Weight: 168lbs. 0.0oz. [id number]; 30.7 BMI Method:Stated General Appearance: No Apparent Distress, WD/WN, Chronically ill Eyes: Bilateral Eye Normal Inspection, Bilateral Eye PERRL HEENT: PERRL/EOMI, TMs Normal, Normal ENT Inspection, Pharynx Normal Neck: Full Range of Motion, Normal Inspection, Non Tender, Supple, Carotid Bruit Respiratory: Chest Non Tender, Lungs Clear, Normal Breath Sounds, No Accessory Muscle Use, No Respiratory Distress Cardiovascular: Regular Rate, Rhythm, No Edema, No Gallop, No JVD, No Murmur, Normal Peripheral Pulses Gastrointestinal: Normal Bowel Sounds, No Organomegaly, No Pulsatile Mass, Non Tender, Soft Back: Normal Inspection, No CVA Tenderness, No Vertebral Tenderness Extremity: Normal Capillary Refill, Normal Inspection, Normal Range of Motion, Non Tender, No Calf Tenderness, No Pedal Edema Neurologic/Psychiatric: Alert, Oriented x3, No Motor/Sensory Deficits, Normal Mood/Affect, Other (Subtle memory recall deficit) Skin: Normal Color, Warm/Dry Lymphatic: No Adenopathy Results Results/Procedures Labs Laboratory Tests 03/01/18 06:50 Patient resulted labs reviewed. Assessment/Plan Admission Diagnosis Assessment: Pelvic fracture with intractable pain in need of orthopedic consultation Presumed C. difficile colitis but C. difficile negative lab check but empirically treating since the odor and frequency consistent with C. difficile colitis Severe debility requiring alf placement Dementia Diabetes mellitus Infected hip fracture site status post completion of IV antibiotics 3 weeks ago Plan: Restarted most home meds Check labs in a.m. Empiric treatment of C. difficile colitis Questran Pain control Orthopedic consultation is appreciated Admission Status: Inpatient Order (span 2 midnights) Reason for Inpatient Admission: Severe pelvic pain will require inpatient stay for pain control and orthopedic consultation in addition to presumed C. difficile colitis treatment at risk for dehydration Diagnosis/Problems Diagnosis/Problems (1) C. difficile colitis Status: Acute (2) Fracture of superior pubic ramus Status: Acute Qualifiers: Encounter type: sequela Fracture type: closed Laterality: right Qualified Codes: S32.511S - Fracture of superior rim of right pubis, sequela (3) Pelvic pain Status: Acute (4) Brittle diabetes mellitus Status: Chronic (5) History of DVT (deep vein thrombosis) Status: Chronic (6) Chronic anticoagulation Status: Chronic (7) Dementia Status: Chronic Qualifiers: Dementia type: Alzheimer's disease Alzheimer's disease onset: unspecified onset Dementia behavioral disturbance: without behavioral disturbance Qualified Codes: G30.9 - Alzheimer's disease, unspecified; F02.80 - Dementia in other diseases classified elsewhere without behavioral disturbance Clinical Quality Measures DVT/VTE Risk/Contraindication: Risk Factor Score Per Nursin RFS Level Per Nursing on Admit: 4+=Very High REBECA LANDIN MEDICAL STUDENT 03/01/18 1141: History of Present Illness HPI/Chief Complaint 68 year old female with Hx of DM, arthritis, and HTN admitted for failed outpt therapy and continued pelvic pain. Pt states that she was diagnosed with a plevic fracture on 02/08/18 and was told it was non-operable and that it would just have to heal. Pt states she has been on assisted living since and that she has continued to have 10/10 pain over the last week. Pt also states she is worried about 3 areas that she thinks might be starting to become bed sores. Pt states she is currently not in any pain. Pt states she had left hips surgery last June which ended up becoming infected and required IV abx. Pt also currently c/o diarrhea and states she was on antibiotics last month. Time Seen by a Provider: 10:25 Past Bwfpgws-Wgoiky-Ekvjmx Hx Past Med/Social Hx: Reviewed Nursing Past Med/Soc Hx Family History Asthma 19 FATHER Diabetes mellitus 19 FATHER 19 MOTHER Hypertension 19 FATHER 19 MOTHER Review of Systems Constitutional: no symptoms reported EENTM: no symptoms reported Respiratory: no symptoms reported Cardiovascular: no symptoms reported; No chest pain, No edema Gastrointestinal: No abdominal pain; diarrhea; No nausea, No vomiting Skin: no symptoms reported Psychiatric/Neurological: No Symptoms Reported Physical Exam Physical Exam General Appearance: No Apparent Distress, WD/WN Eyes: Bilateral Eye EOMI HEENT: PERRL/EOMI Neck: Normal Inspection, Supple Respiratory: Chest Non Tender, Lungs Clear, Normal Breath Sounds, No Accessory Muscle Use, No Respiratory Distress Cardiovascular: Regular Rate, Rhythm, No Edema, No JVD Gastrointestinal: Normal Bowel Sounds, Non Tender, Soft Extremity: No Pedal Edema Neurologic/Psychiatric: Alert, Oriented x3 Assessment/Plan Admission Diagnosis Admission Status: Inpatient Order (span 2 midnights) Assessment and Plan Failed outpt therapy uncontrolled pain Hx of pelvic fracture C. Diff Plan: Pain control Stool culture ortho consult DVT prophylaxis PERICO ALVA DO Mar 01, 2018 10:09 REBECA LANDIN MEDICAL STUDENT Mar 01, 2018 11:41
--- NOTE | 2018-03-01 10:28 | NUR ---
4 LIQUID, MUCOUS STOOLS THIS AM. FOUL ODOR. NOTIFIED. STOOL C DIF TO LAB.
[2018-03-01] MEDS ORDERED: CHOLESTYRAMINE 4 GM (QUESTRAN LITE, PREVALITE) PKT PO NR (11:15)
[2018-03-01] MEDS ORDERED: VANCOMYCIN ORAL SUSPENSION 60 ML BOTTLE PO SCH (12:15)
[2018-03-01] MEDS: ACETAMINOPHEN 325 MG TABLET PO SCH ×2 (12:35→18:12)
[2018-03-01] MEDS: VANCOMYCIN ORAL 250 MG/5 ML 120 ML PO SCH ×4 (13:38→18:12)
--- NOTE | 2018-03-01 15:14 | NUR ---
SHARYN SS: Spoke with Stephania at [facility]. She reports that the patient was admitted to their facility from her home on 02/09/18. She was admitted to them with a known pelvic fracture at that time. They were unable to determine what her activity restrictions were d/t her pelvic fracture. D/T this she was TTWB only to commode et transfer to sit up in chair. Before her requested appointment that was set with ortho 4 states she began to have uncontrolled pain et was admitted to our facility on 02/28/18. Since her admission with them Stephania has been helping the patient to file for [facility]. She reports that they are all but finished et the last step for that to be completed was set to happen on Sunday03/04/18 if patient was at their facility. Stephania reports that they will take this patient back if that is what is determined is in the patient's best interest when she is ready to discharge from the hospital. It is unsure if she will be able to return to them or not.
--- NOTE | 2018-03-01 16:21 | Wound Care Assessment ---
Wound Care Assessment Past Medical History: Admits Diabetes Type II Smoking Status: Former Smoker Recreational Drug Use: No Alcohol Use: Denies Use Review of Systems Gastrointestinal: Other (Incontinent of stool.) Musculoskeletal: back pain, leg pain Neurological: Weakness Exam Vital Signs Date Time Temp Pulse Resp B/P (MAP) Pulse Ox O2 Delivery O2 Flow Rate FiO2 03/01/18 12:00 97.4 84 16 138/82 (100) Room Air 03/01/18 04:05 94 Capillary Refill : Less Than 3 Seconds General Appearance: mild distress Respiratory: no respiratory distress Skin: other (R buttock, cluster of 3 wounds, largest 1.6 x 1.2 x 0.2 cm, base 100 slough.) Results Laboratory Tests 02/28/18 21:01: Glucometer 199H 03/01/18 06:15: Glucometer 350H 03/01/18 06:50: White Blood Count 11.0, Red Blood Count 4.53, Hemoglobin 12.4, Hematocrit 39, Mean Corpuscular Volume 87, Mean Corpuscular Hemoglobin 27, Mean Corpuscular Hemoglobin Concent 32, Red Cell Distribution Width 13.2, Platelet Count 557H, Mean Platelet Volume 9.7, Neutrophils (%) (Auto) 76H, Lymphocytes (%) (Auto) 16 , Monocytes (%) (Auto) 7, Eosinophils (%) (Auto) 1, Basophils (%) (Auto) 1, Neutrophils # (Auto) 8.3H, Lymphocytes # (Auto) 1.7, Monocytes # (Auto) 0.7, Eosinophils # (Auto) 0.1, Basophils # (Auto) 0.1, Prothrombin Time 20.5H, INR Comment 1.8H, Sodium Level 136, Potassium Level 4.6, Chloride Level 100, Carbon Dioxide Level 18L, Anion Gap 18H, Blood Urea Nitrogen 31H, Creatinine 1.75H, Estimat Glomerular Filtration Rate 29, BUN/Creatinine Ratio 18, Glucose Level 375H, Calcium Level 9.5 03/01/18 11:19: Glucometer 206H Microbiology 03/01/18 C. difficile [facility]DH Antigen & Toxins - Final, Complete Microbiology 03/01/18 C. difficile [facility]DH Antigen & Toxins - Final, Complete Assessment/Plan/Dx 1. Pressure ulcer, R buttock, with an element of MASD, complicated by pain with positioning. 2. Pelvic fracture, limiting mobility. 3. Diabetes mellitus. Plan: We will position off of wounded area as tolerated with pelvic fracture. Use [facility] due to constant incontinence of stool. REBECA HERR MD Mar 01, 2018 16:21
--- NOTE | 2018-03-01 16:22 | NUR ---
DR. HERR HERE. WOUND ASSESSED AND LEFT ALAN.
[2018-03-01] MEDS: ZINC OXIDE 16% OINT (BUTT PASTE) 113 GM TUBE TOP PRN (16:48)
[2018-03-01] MEDS: CHOLESTYRAMINE 4 GM (QUESTRAN LITE, PREVALITE) PKT PO SCH ×2 (18:05→22:08)
[2018-03-01] MEDS: warFARin 2.5 MG (COUMADIN) TAB PO SCH (18:05)
[2018-03-01] MEDS: CYANOCOBALAMIN 1,000 MCG (VITAMIN B-12) TABLET PO SCH (18:12)
[2018-03-01] MEDS: OMEGA 3 (FISH OIL) 1000 MG CAP PO SCH (18:12)
[2018-03-01] MEDS: DONEPEZIL 5 MG (ARICEPT) TAB PO SCH (20:37)
[2018-03-01] MEDS: ATORVASTATIN 10 MG (LIPITOR) TABLET PO SCH ×2 (20:37→22:08)
[2018-03-01] MEDS: CARVEDILOL 12.5 MG (COREG) TABLET PO SCH (20:37)
[2018-03-01] MEDS: inSUlin DETERMIR 1 UNIT/0.01 ML (LEVEMIR) CHARGE PER UNIT SQ SCH (21:37)
[2018-03-02] MEDS: VANCOMYCIN ORAL 250 MG/5 ML 120 ML PO SCH ×8 (01:07→17:42)
[2018-03-02] MEDS: ACETAMINOPHEN 325 MG TABLET PO SCH ×4 (01:07→17:33)
[2018-03-02 03:36] VITALS: BP 134/68
[2018-03-02] MEDS: inSUlin ASPART (NovoLOG) 1 UNIT/0.01 ML (CHARGE PER UNIT) SC SCH ×7 (06:15→21:47)
[2018-03-02] MEDS: OMEGA 3 (FISH OIL) 1000 MG CAP PO SCH ×2 (06:15→17:34)
[2018-03-02] MEDS: CYANOCOBALAMIN 1,000 MCG (VITAMIN B-12) TABLET PO SCH ×2 (06:15→17:41)
[2018-03-02] MEDS: CHOLESTYRAMINE 4 GM (QUESTRAN LITE, PREVALITE) PKT PO SCH ×4 (06:15→21:47)
[2018-03-02 07:53] LABS: BASOPHILS % (AUTO) 0 % (0-10); EOSINOPHILS # (AUTO) 0.2 10^3/uL (0.0-0.3); EOSINOPHILS % (AUTO) 2 % (0-10); HEMATOCRIT 41 % (35-52); HEMOGLOBIN 12.6 G/DL (11.5-16.0); LYMPHOCYTES # (AUTO) 1.8 X 10^3 (1.0-4.0); LYMPHOCYTES % (AUTO) 17 % (12-44); MEAN CORPUSCULAR HEMOGLOBIN 27 PG (25-34); MEAN CORPUSCULAR HGB CONC 31 G/DL (32-36); MEAN CORPUSCULAR VOLUME 87 FL (80-99); MEAN PLATELET VOLUME 9.8 FL (7.4-10.4); MONOCYTES # (AUTO) 0.8 X 10^3 (0.0-1.0); MONOCYTES % (AUTO) 8 % (0-12); NEUTROPHILS # (AUTO) 7.8 X 10^3 (1.8-7.8); NEUTROPHILS % (AUTO) 73 % (42-75); PLATELET COUNT 504 10^3/uL (130-400); RED BLOOD COUNT 4.67 10^6/uL (4.35-5.85); WHITE BLOOD COUNT 10.6 10^3/uL (4.3-11.0)
[2018-03-02 08:00] VITALS: BP 148/74
[2018-03-02] MEDS: CARVEDILOL 12.5 MG (COREG) TABLET PO SCH ×2 (08:04→20:08)
[2018-03-02] MEDS: LOSARTAN 50 MG (COZAAR) TAB PO SCH (08:04)
[2018-03-02] MEDS: PANTOPRAZOLE 40 MG (PROTONIX) TAB PO SCH (08:04)
[2018-03-02] MEDS: amLODIPine 5 MG (NORVASC) TAB PO SCH (08:04)
[2018-03-02 08:06] LABS: PROTHROMBIN TIME PATIENT 22.8 SEC (12.2-14.7)
[2018-03-02 08:16] LABS: ALBUMIN 3.8 GM/DL (3.2-4.5); BILIRUBIN,TOTAL 0.2 MG/DL (0.1-1.0); CALCIUM 9.5 MG/DL (8.5-10.1); CREATININE SERUM 1.39 MG/DL (0.60-1.30); TOTAL PROTEIN 7.6 GM/DL (6.4-8.2)
[2018-03-02] MEDS: ZINC OXIDE 16% OINT (BUTT PASTE) 113 GM TUBE TOP PRN (08:18)
--- NOTE | 2018-03-02 11:46 | Progress Note-Hospitalist ---
Subjective HPI/CC On Admission Date Seen by Provider: Mar 02, 2018 Time Seen by Provider: 11:00 CC: Fractured pelvis pain HPI: This is a 68-year-old white female with prior history of multiple fractures in the past who resides in [place] and sees Dr. Reynolds is her primary care provider who presents as a direct admission from [place] ER due to severe pelvic pain which was so severe prompting multiple ER visits for pain so she was transferred here with orthopedic consultation request. Currently she is having a great deal of diarrhea C. difficile was sent off but her pelvic pain seems to be improved with just positioning in the bed. Inpatient rehabilitation has been consulted and she has been there before. At this current time we will work on the frequent stools with Questran await C. difficile check from the lab and restart all home meds. Overall guarded prognosis long-term given her somewhat young age and such multiple medical problems. Subjective/Events-last exam Patient doing better with diarrhea Now having some slight blood in her urine when she urinates Denies any symptoms of UTI Cid perform sterile in and out catheter for urine sample Maintained on vancomycin orally Labs revealed INR 2.0 and the rest of labs normal Overall poor prognosis given the severe comorbidities at such a young age of 68 and a alf required Review of Systems General: Fatigue Gastrointestinal: Diarrhea Objective Exam Vital Signs Vital Signs Date Time Temp Pulse Resp B/P (MAP) Pulse Ox O2 Delivery O2 Flow Rate FiO2 03/02/18 08:00 96.2 80 16 148/74 (98) 96 Room Air Capillary Refill : Less Than 3 Seconds General Appearance: No Apparent Distress, WD/WN, Chronically ill Respiratory: Chest Non Tender, Lungs Clear, Normal Breath Sounds, No Accessory Muscle Use, No Respiratory Distress Cardiovascular: Regular Rate, Rhythm, No Edema, No Gallop, No JVD, No Murmur, Normal Peripheral Pulses Neurologic/Psychiatric: Alert, Oriented x3, No Motor/Sensory Deficits, Normal Mood/Affect Results/Procedures Lab Laboratory Tests 03/02/18 07:37 Patient resulted labs reviewed. Assessment/Plan Assessment and Plan Assess & Plan/Chief Complaint Assessment: Pelvic fracture with intractable pain not a surgical case Presumed C. difficile colitis but C. difficile negative lab check but empirically treating since the odor and frequency consistent with C. difficile colitis Severe debility requiring alf placement Dementia Diabetes mellitus Infected hip fracture site status post completion of IV antibiotics 3 weeks ago Hematuria requested UA in/out cath Plan: DC Sunday? Pain control Vanc PO Check UA Poor prognosis Diagnosis/Problems Diagnosis/Problems (1) C. difficile colitis Status: Acute (2) Fracture of superior pubic ramus Status: Acute Qualifiers: Encounter type: sequela Fracture type: closed Laterality: right Qualified Codes: S32.511S - Fracture of superior rim of right pubis, sequela (3) Pelvic pain Status: Acute (4) Brittle diabetes mellitus Status: Chronic (5) History of DVT (deep vein thrombosis) Status: Chronic (6) Chronic anticoagulation Status: Chronic (7) Dementia Status: Chronic Qualifiers: Dementia type: Alzheimer's disease Alzheimer's disease onset: unspecified onset Dementia behavioral disturbance: without behavioral disturbance Qualified Codes: G30.9 - Alzheimer's disease, unspecified; F02.80 - Dementia in other diseases classified elsewhere without behavioral disturbance (8) Hematuria Status: Acute Qualifiers: Hematuria type: gross Qualified Codes: R31.0 - Gross hematuria Clinical Quality Measures DVT/VTE Risk/Contraindication: Risk Factor Score Per Nursin RFS Level Per Nursing on Admit: 4+=Very High PERICO ALVA DO Mar 02, 2018 11:46
[2018-03-02 12:00] VITALS: BP 125/65
[2018-03-02 15:55] VITALS: BP 108/69
--- NOTE | 2018-03-02 17:00 | NUR ---
# [address] CATH INSERTED WITH RED RUBBER CATH. KAMILA. WELL. 200 CC DARK AMBERS URINE RETURNED. UA TO LAB.
[2018-03-02] MEDS: warFARin 2.5 MG (COUMADIN) TAB PO SCH (17:41)
[2018-03-02 17:52] LABS: BILIRUBIN,URINE NEGATIVE (NEGATIVE); CLARITY,URINE CLEAR; COLOR,URINE YELLOW; GLUCOSE, URINE (UA) 1+ (NEGATIVE); KETONES,URINE 2+ (NEGATIVE); LEUKOCYTE ESTERASE ,URINE 3+ (NEGATIVE); NITRITE,URINE NEGATIVE (NEGATIVE); PH,URINE 5 (5-9); PROTEIN,URINE 3+ (NEGATIVE); UROBILINOGEN,URINE NORMAL (NORMAL)
[2018-03-02 18:00] LABS: BACTERIA,URINE LARGE /HPF; RBC,URINE TNTC /HPF; SQUAMOUS EPITHELIAL CELL,UR 0-2 /HPF; WBC,URINE TNTC /HPF
[2018-03-02 19:44] VITALS: BP 153/79
[2018-03-02] MEDS: DONEPEZIL 5 MG (ARICEPT) TAB PO SCH (20:07)
[2018-03-02] MEDS: ATORVASTATIN 10 MG (LIPITOR) TABLET PO SCH ×2 (20:07)
[2018-03-02] MEDS: inSUlin DETERMIR 1 UNIT/0.01 ML (LEVEMIR) CHARGE PER UNIT SQ SCH (21:47)
[2018-03-02 23:30] VITALS: BP 145/82
[2018-03-03] MEDS: VANCOMYCIN ORAL 250 MG/5 ML 120 ML PO SCH ×8 (00:10→17:46)
[2018-03-03] MEDS: ACETAMINOPHEN 325 MG TABLET PO SCH ×4 (00:10→17:46)
[2018-03-03 04:12] VITALS: BP 155/73
[2018-03-03] MEDS: OMEGA 3 (FISH OIL) 1000 MG CAP PO SCH ×2 (05:50→17:45)
[2018-03-03] MEDS: CYANOCOBALAMIN 1,000 MCG (VITAMIN B-12) TABLET PO SCH ×2 (05:51→17:46)
[2018-03-03] MEDS: inSUlin ASPART (NovoLOG) 1 UNIT/0.01 ML (CHARGE PER UNIT) SC SCH ×7 (05:51→21:17)
[2018-03-03] MEDS: CHOLESTYRAMINE 4 GM (QUESTRAN LITE, PREVALITE) PKT PO SCH ×4 (05:51→20:22)
[2018-03-03 08:07] LABS: BASOPHILS % (AUTO) 0 % (0-10); EOSINOPHILS # (AUTO) 0.2 10^3/uL (0.0-0.3); EOSINOPHILS % (AUTO) 2 % (0-10); HEMATOCRIT 42 % (35-52); HEMOGLOBIN 13.1 G/DL (11.5-16.0); LYMPHOCYTES # (AUTO) 1.5 X 10^3 (1.0-4.0); LYMPHOCYTES % (AUTO) 14 % (12-44); MEAN CORPUSCULAR HEMOGLOBIN 28 PG (25-34); MEAN CORPUSCULAR HGB CONC 32 G/DL (32-36); MEAN CORPUSCULAR VOLUME 87 FL (80-99); MEAN PLATELET VOLUME 9.7 FL (7.4-10.4); MONOCYTES # (AUTO) 0.8 X 10^3 (0.0-1.0); MONOCYTES % (AUTO) 7 % (0-12); NEUTROPHILS # (AUTO) 8.1 X 10^3 (1.8-7.8); NEUTROPHILS % (AUTO) 77 % (42-75); PLATELET COUNT 500 10^3/uL (130-400); RED BLOOD COUNT 4.76 10^6/uL (4.35-5.85); RED CELL DISTRIBUTION WIDTH 13.2 % (10.0-14.5); WHITE BLOOD COUNT 10.5 10^3/uL (4.3-11.0)
[2018-03-03 08:20] LABS: INR 2.2 (0.8-1.4); PROTHROMBIN TIME PATIENT 24.4 SEC (12.2-14.7)
[2018-03-03 08:37] VITALS: BP 185/92
[2018-03-03 08:43] LABS: ALBUMIN 3.8 GM/DL (3.2-4.5); BILIRUBIN,TOTAL 0.2 MG/DL (0.1-1.0); CALCIUM 9.7 MG/DL (8.5-10.1); CREATININE SERUM 1.5 MG/DL (0.60-1.30); POTASSIUM 4.6 MMOL/L (3.6-5.0); TOTAL PROTEIN 7.6 GM/DL (6.4-8.2)
[2018-03-03] MEDS: LOSARTAN 50 MG (COZAAR) TAB PO SCH (09:30)
[2018-03-03] MEDS: amLODIPine 5 MG (NORVASC) TAB PO SCH (09:30)
[2018-03-03] MEDS: PANTOPRAZOLE 40 MG (PROTONIX) TAB PO SCH (09:30)
[2018-03-03] MEDS: CARVEDILOL 12.5 MG (COREG) TABLET PO SCH ×2 (09:30→20:21)
[2018-03-03 12:21] VITALS: BP 135/70
--- NOTE | 2018-03-03 12:48 | Progress Note-Hospitalist ---
Subjective HPI/CC On Admission Date Seen by Provider: Mar 03, 2018 Time Seen by Provider: 12:00 CC: Fractured pelvis pain HPI: This is a 68-year-old white female with prior history of multiple fractures in the past who resides in [place] and sees Dr. Reynolds is her primary care provider who presents as a direct admission from [place] ER due to severe pelvic pain which was so severe prompting multiple ER visits for pain so she was transferred here with orthopedic consultation request. Currently she is having a great deal of diarrhea C. difficile was sent off but her pelvic pain seems to be improved with just positioning in the bed. Inpatient rehabilitation has been consulted and she has been there before. At this current time we will work on the frequent stools with Questran await C. difficile check from the lab and restart all home meds. Overall guarded prognosis long-term given her somewhat young age and such multiple medical problems. Subjective/Events-last exam Patient doing well Only one diarrheal stool today Questran is really helping her Tolerated vancomycin by mouth UA reviewed placed on Rocephin Such a challenging case considering the young age of the individual in such severe comorbidities and dependency on skilled care Once to go to [facility] in [place] and tomorrow will pass the midnight rule so we will be able to work on placement tomorrow Review of Systems General: Fatigue Objective Exam Vital Signs Vital Signs Date Time Temp Pulse Resp B/P (MAP) Pulse Ox O2 Delivery O2 Flow Rate FiO2 03/03/18 12:21 97.1 68 20 135/70 (91) 97 Room Air Capillary Refill : Less Than 3 Seconds General Appearance: No Apparent Distress, WD/WN, Chronically ill Respiratory: Chest Non Tender, Lungs Clear, Normal Breath Sounds, No Accessory Muscle Use, No Respiratory Distress Cardiovascular: Regular Rate, Rhythm, No Edema, No Gallop, No JVD, No Murmur, Normal Peripheral Pulses Neurologic/Psychiatric: Alert, Oriented x3, No Motor/Sensory Deficits, Normal Mood/Affect Results/Procedures Lab Laboratory Tests 03/03/18 07:54 Patient resulted labs reviewed. Assessment/Plan Assessment and Plan Assess & Plan/Chief Complaint Assessment: Pelvic fracture with intractable pain not a surgical case Presumed C. difficile colitis but C. difficile negative lab check but empirically treating since the odor and frequency consistent with C. difficile colitis Severe debility requiring fci placement Dementia Diabetes mellitus Infected hip fracture site status post completion of IV antibiotics 3 weeks ago UTI with hematuria placed on Rocephin empirically Plan: DC Sunday to [facility] Pain control Vanc PO Rocephin Poor prognosis Diagnosis/Problems Diagnosis/Problems (1) C. difficile colitis Status: Acute (2) Fracture of superior pubic ramus Status: Acute Qualifiers: Encounter type: sequela Fracture type: closed Laterality: right Qualified Codes: S32.511S - Fracture of superior rim of right pubis, sequela (3) Pelvic pain Status: Acute (4) Brittle diabetes mellitus Status: Chronic (5) History of DVT (deep vein thrombosis) Status: Chronic (6) Chronic anticoagulation Status: Chronic (7) Dementia Status: Chronic Qualifiers: Dementia type: Alzheimer's disease Alzheimer's disease onset: unspecified onset Dementia behavioral disturbance: without behavioral disturbance Qualified Codes: G30.9 - Alzheimer's disease, unspecified; F02.80 - Dementia in other diseases classified elsewhere without behavioral disturbance (8) Hematuria Status: Acute Qualifiers: Hematuria type: gross Qualified Codes: R31.0 - Gross hematuria (9) UTI (urinary tract infection) Status: Acute Qualifiers: Urinary tract infection type: acute cystitis Hematuria presence: with hematuria Qualified Codes: N30.01 - Acute cystitis with hematuria (10) Renal insufficiency Status: Chronic Clinical Quality Measures DVT/VTE Risk/Contraindication: Risk Factor Score Per Nursin RFS Level Per Nursing on Admit: 4+=Very High PERICO ALVA DO Mar 03, 2018 12:48
[2018-03-03] MEDS ORDERED: LACTOBACILLUS Acidoph/Bulgar 1 GM (LACTINEX) PACKET PO NR (14:30)
[2018-03-03] MEDS: LACTOBACILLUS Acidoph/Bulgar 1 GM (LACTINEX) PACKET PO SCH ×2 (15:30→20:21)
[2018-03-03 16:48] VITALS: BP 126/82
[2018-03-03] MEDS: cefTRIAXone FOR IV USE 1,000 MG in NS (IVPB) 50 ML IV SCH (17:36)
[2018-03-03] MEDS: warFARin 2.5 MG (COUMADIN) TAB PO SCH (17:46)
[2018-03-03 19:56] VITALS: BP 131/70
[2018-03-03] MEDS: ATORVASTATIN 10 MG (LIPITOR) TABLET PO SCH ×2 (20:21)
[2018-03-03] MEDS: DONEPEZIL 5 MG (ARICEPT) TAB PO SCH (20:22)
[2018-03-03] MEDS: inSUlin DETERMIR 1 UNIT/0.01 ML (LEVEMIR) CHARGE PER UNIT SQ SCH (21:21)
[2018-03-03 23:20] VITALS: BP 147/76
[2018-03-04 04:00] VITALS: BP 150/69
[2018-03-04 04:47] LABS: BASOPHILS % (AUTO) 0 % (0-10); EOSINOPHILS # (AUTO) 0.2 10^3/uL (0.0-0.3); EOSINOPHILS % (AUTO) 1 % (0-10); HEMATOCRIT 41 % (35-52); HEMOGLOBIN 12.6 G/DL (11.5-16.0); LYMPHOCYTES # (AUTO) 2.1 X 10^3 (1.0-4.0); LYMPHOCYTES % (AUTO) 19 % (12-44); MEAN CORPUSCULAR HEMOGLOBIN 27 PG (25-34); MEAN CORPUSCULAR HGB CONC 31 G/DL (32-36); MEAN CORPUSCULAR VOLUME 88 FL (80-99); MEAN PLATELET VOLUME 10.1 FL (7.4-10.4); MONOCYTES # (AUTO) 0.8 X 10^3 (0.0-1.0); MONOCYTES % (AUTO) 7 % (0-12); NEUTROPHILS # (AUTO) 7.8 X 10^3 (1.8-7.8); NEUTROPHILS % (AUTO) 72 % (42-75); PLATELET COUNT 457 10^3/uL (130-400); RED BLOOD COUNT 4.67 10^6/uL (4.35-5.85); WHITE BLOOD COUNT 10.8 10^3/uL (4.3-11.0)
[2018-03-04 04:55] LABS: INR 2.2 (0.8-1.4); PROTHROMBIN TIME PATIENT 24.2 SEC (12.2-14.7)
[2018-03-04 05:13] LABS: ALBUMIN 3.7 GM/DL (3.2-4.5); BILIRUBIN,TOTAL 0.2 MG/DL (0.1-1.0); CALCIUM 9.3 MG/DL (8.5-10.1); CREATININE SERUM 1.57 MG/DL (0.60-1.30); POTASSIUM 4.7 MMOL/L (3.6-5.0); TOTAL PROTEIN 7.8 GM/DL (6.4-8.2)
[2018-03-04] MEDS: inSUlin ASPART (NovoLOG) 1 UNIT/0.01 ML (CHARGE PER UNIT) SC SCH ×4 (05:55→11:41)
[2018-03-04] MEDS: CHOLESTYRAMINE 4 GM (QUESTRAN LITE, PREVALITE) PKT PO SCH ×2 (06:05→11:48)
[2018-03-04] MEDS: LACTOBACILLUS Acidoph/Bulgar 1 GM (LACTINEX) PACKET PO SCH ×2 (06:47→11:37)
[2018-03-04] MEDS: ACETAMINOPHEN 325 MG TABLET PO SCH ×3 (06:47→11:41)
[2018-03-04] MEDS: VANCOMYCIN ORAL 250 MG/5 ML 120 ML PO SCH ×6 (06:48→11:48)
[2018-03-04] MEDS: amLODIPine 5 MG (NORVASC) TAB PO SCH (07:15)
[2018-03-04] MEDS: PANTOPRAZOLE 40 MG (PROTONIX) TAB PO SCH (07:15)
[2018-03-04] MEDS: CARVEDILOL 12.5 MG (COREG) TABLET PO SCH (07:15)
[2018-03-04] MEDS: LOSARTAN 50 MG (COZAAR) TAB PO SCH (07:15)
[2018-03-04] MEDS: CYANOCOBALAMIN 1,000 MCG (VITAMIN B-12) TABLET PO SCH (07:15)
[2018-03-04] MEDS: OMEGA 3 (FISH OIL) 1000 MG CAP PO SCH (07:15)
[2018-03-04 08:00] VITALS: BP 156/72
--- NOTE | 2018-03-04 09:57 | NUR ---
CM DISCHARGE PLANNING: Patient will be dismissed to [facility] home placement at [facility] for needed Nursing, Physical, and Occupational therapies pending acceptance. Referral faxed awaiting determination. Patient reports that she can sit in a wheel chair for transport et is ready to start therapies to get stronger. If patient is accepted then she will dismiss today. Updated Stephania at [facility] as patient's prior living situation.
[2018-03-04] MEDS ORDERED: CHOL4PAC3 PO (10:08)
[2018-03-04] MEDS ORDERED: CEFD300C3 PO (10:08)
[2018-03-04] MEDS ORDERED: VANC125S PO (10:08)
[2018-03-04] MEDS ORDERED: TRAM50TA2 PO (10:08)
--- NOTE | 2018-03-04 10:10 | Discharge Inst-Skilled Nursing ---
Discharge Inst-Skilled NF Patient Instructions Patient Problems: Pubis rami fracture UTI C diff colitis DM CRI Goal: Return to [place] Consult/Follow Up/Orders Follow Up Appt.: Dr Reynolds in 1 week Skilled NF Admit to: [facility] Certification (SNF) I certify that SNF services are required to be given on an inpatient basis because of the above named patient's need for long-term care on a continuing basis for the conditions(s) for which he/she was receiving inpatient hospital services prior to his/her transfer to the SNF. Care Home Facility Order: Nursing Services, Diet Therapist-Evaluate & Treat, Physical Therapy-Evaluate & Treat, Speech Language-Evaluate & Treat Discharge Diet: No Restrictions Daily Activity as Tolerated: Yes New & Resume Previous Orders Jenny Vale Mar 04, 2018 10:09 JENNY VALE DO Mar 04, 2018 10:10
[2018-03-04] MEDS ORDERED: RELABEL FOR HOME USE MC SCH ×3 (10:15→14:45)
--- NOTE | 2018-03-04 11:00 | Discharge Summary-Hospitalist ---
Diagnosis/Chief Complaint Date of Admission Feb 28, 2018 at 17:12 Date of Discharge Discharge Date: Mar 04, 2018 Admission Diagnosis Assessment: Pelvic fracture with intractable pain in need of orthopedic consultation Presumed C. difficile colitis but C. difficile negative lab check but empirically treating since the odor and frequency consistent with C. difficile colitis Severe debility requiring skilled nursing placement Dementia Diabetes mellitus Infected hip fracture site status post completion of IV antibiotics 3 weeks ago Plan: Restarted most home meds Check labs in a.m. Empiric treatment of C. difficile colitis Questran Pain control Orthopedic consultation is appreciated Discharge Diagnosis (1) C. difficile colitis Status: Acute (2) Fracture of superior pubic ramus Status: Acute (3) Pelvic pain Status: Acute (4) Brittle diabetes mellitus Status: Chronic (5) History of DVT (deep vein thrombosis) Status: Chronic (6) Chronic anticoagulation Status: Chronic (7) Dementia Status: Chronic (8) Hematuria Status: Acute (9) UTI (urinary tract infection) Status: Acute (10) Renal insufficiency Status: Chronic Discharge Summary Discharge Physical Exam Allergies: Coded Allergies: Penicillins (Verified Allergy, Intermediate, HIVES, 05/28/17) hydrocodone (Verified Adverse Reaction, Unknown, VOMITING, 05/28/17) Vitals & I&Os Vital Signs Date Time Temp Pulse Resp B/P (MAP) Pulse Ox O2 Delivery O2 Flow Rate FiO2 03/04/18 08:00 98.4 80 20 156/72 (100) 96 Room Air General Appearance: No Apparent Distress, WD/WN, Chronically ill Respiratory: Chest Non Tender, Lungs Clear, Normal Breath Sounds, No Accessory Muscle Use, No Respiratory Distress Cardiovascular: Regular Rate, Rhythm, No Edema, No Gallop, No JVD, No Murmur, Normal Peripheral Pulses Neurologic/Psychiatric: Alert, Oriented x3, No Motor/Sensory Deficits, Normal Mood/Affect Hospital Course Hospital course: Patient had an uneventful hospital course she was admitted after transfer from [facility] for severe pelvic pain from pubic rami fracture. She is placed on pain medication and check for C. difficile colitis which the original test was inconclusive but due to the odor and the severity of the diarrhea and given the fact she had completed a long-term antibiotic regimen just 3 weeks ago she was empirically treated with vancomycin by mouth for 125 mg 4 times a day in addition to Questran that really resolved most the diarrhea at time of discharge. UTI was noted although no growth to date she was given antibiotics in the ER for [facility] so she was placed on Omnicef after Rocephin was given and she will complete additional 3 days of that. Patient will go to [facility] for skilled care those orders were placed and patient will follow-up with Dr. bo her primary care provider. Labs (last 24 hrs) Laboratory Tests 03/03/18 16:46: Glucometer 119H 03/03/18 21:12: Glucometer 108 03/04/18 04:27: White Blood Count 10.8, Red Blood Count 4.67, Hemoglobin 12.6, Hematocrit 41, Mean Corpuscular Volume 88, Mean Corpuscular Hemoglobin 27, Mean Corpuscular Hemoglobin Concent 31L, Red Cell Distribution Width 13.0, Platelet Count 457H, Mean Platelet Volume 10.1, Neutrophils (%) (Auto) 72, Lymphocytes (%) (Auto) 19 , Monocytes (%) (Auto) 7, Eosinophils (%) (Auto) 1, Basophils (%) (Auto) 0, Neutrophils # (Auto) 7.8, Lymphocytes # (Auto) 2.1, Monocytes # (Auto) 0.8, Eosinophils # (Auto) 0.2, Basophils # (Auto) 0.0, Prothrombin Time 24.2H, INR Comment 2.2H, Sodium Level 138, Potassium Level 4.7, Chloride Level 108H, Carbon Dioxide Level 15L, Anion Gap 15H, Blood Urea Nitrogen 25H, Creatinine 1.57H, Estimat Glomerular Filtration Rate 33, BUN/Creatinine Ratio 16, Glucose Level 176H, Calcium Level 9.3, Corrected Calcium 9.5, Total Bilirubin 0.2, Aspartate Amino Transf (AST/SGOT) 19, Alanine Aminotransferase (ALT/SGPT) 8, Alkaline Phosphatase 244H, Total Protein 7.8, Albumin 3.7 Microbiology 03/01/18 C. difficile GDH Antigen & Toxins - Final, Complete 03/02/18 Urine Culture - Final, Complete NO GROWTH Patient resulted labs reviewed. Pending Labs Laboratory Tests 03/04/18 04:27: White Blood Count 10.8, Red Blood Count 4.67, Hemoglobin 12.6, Hematocrit 41, Mean Corpuscular Volume 88, Mean Corpuscular Hemoglobin 27, Mean Corpuscular Hemoglobin Concent 31, Red Cell Distribution Width 13.0, Platelet Count 457, Mean Platelet Volume 10.1, Neutrophils (%) (Auto) 72, Lymphocytes (%) (Auto) 19 , Monocytes (%) (Auto) 7, Eosinophils (%) (Auto) 1, Basophils (%) (Auto) 0, Neutrophils # (Auto) 7.8, Lymphocytes # (Auto) 2.1, Monocytes # (Auto) 0.8, Eosinophils # (Auto) 0.2, Basophils # (Auto) 0.0, Prothrombin Time 24.2, INR Comment 2.2, Sodium Level 138, Potassium Level 4.7, Chloride Level 108, Carbon Dioxide Level 15, Anion Gap 15, Blood Urea Nitrogen 25, Creatinine 1.57, Estimat Glomerular Filtration Rate 33, BUN/Creatinine Ratio 16, Glucose Level 176, Calcium Level 9.3, Corrected Calcium 9.5, Total Bilirubin 0.2, Aspartate Amino Transf (AST/SGOT) 19, Alanine Aminotransferase (ALT/SGPT) 8, Alkaline Phosphatase 244, Total Protein 7.8, Albumin 3.7 Discussion & Recommendations Discharge Planning: <30 minutes discharge planning Discharge Home Medications: Active Scripts Active Vancomycin ORAL Compound 250mg/5 ml (Vancomycin HCl) 125 Mg/2.5 Ml Syringe 125 Mg PO QID 6 Days Cefdinir 300 Mg Capsule 300 Mg PO BID Prevalite Packet (Cholestyramine/Aspartame) 4 Gm Powd.pack 4 Gm PO ACHS 7 Days Tramadol HCl 50 Mg Tablet 100 Mg PO 0000,0600,1200,1800 TAKES WITH APAP 325MG ROUTINLY FOR 2 WEEKS ON 03-09-18 Reported Tramadol HCl 50 Mg Tablet 50 Mg PO Q6H PRN Ocuvite Softgel (Vit C/Vit E/Lutein/Min/Ventura-3) 1 Each Capsule 1 Cap PO 1200 Cinnamon (Cinnamon Bark) 500 Mg Capsule 1,000 Mg PO BID Vitamin B-12 (Cyanocobalamin (Vitamin B-12)) 1,000 Mcg/1 Ml Drops 1,000 Mcg PO BID Fish Oil 1,000 mg Capsule (Ventura 3 Polyunsat Fatty Acids) 1,000 Mg Cap 1,000 Mg PO BID Vitamin D3 (Cholecalciferol (Vitamin D3)) 1,000 Unit Capsule 1,000 Unit PO DAILY Gvfratc-Afvoattiu-Ugtd Caplet (Calcium Carbonate/Mag Oxide/Zn) 1 Each Tablet 1 Tab PO BID Vitamin C (Ascorbic Acid) 1,000 Mg Tablet 1,000 Mg PO BID Lantus (Insulin Glargine,Hum.rec.anlog) 100 Unit/1 Ml Vial 24 Unit SQ HS Acetaminophen 325 Mg Tablet 325 Mg PO 0000,0600,1200,1800 TAKES WITH 2 TRAMADOL EVERY 6 HOURS SCHEDULED FOR TWO WEEKS Warfarin Sodium 2.5 Mg Tablet 2.5 Mg PO 1800 Amlodipine Besylate 5 Mg Tablet 5 Mg PO DAILY Losartan Potassium 50 Mg Tablet 50 Mg PO DAILY Humalog (Insulin Lispro) 100 Unit/1 Ml Vial 5 Units SC TIDAC Donepezil HCl 5 Mg Tablet 5 Mg PO HS Atorvastatin Calcium 10 Mg Tablet 10 Mg PO HS Citalopram HBr (Citalopram Hydrobromide) 20 Mg Tablet 20 Mg PO HS Carvedilol 25 Mg Tablet 25 Mg PO BID Pantoprazole Sodium 40 Mg Tablet.dr 40 Mg PO DAILY Instructions to patient/family Please see electronic discharge instructions given to patient. Clinical Quality Measures DVT/VTE Risk/Contraindication: Risk Factor Score Per Nursin RFS Level Per Nursing on Admit: 4+=Very High Problem Qualifiers (1) Fracture of superior pubic ramus: Encounter type: sequela Fracture type: closed Laterality: right Qualified Codes: S32.511S - Fracture of superior rim of right pubis, sequela (2) Dementia: Dementia type: Alzheimer's disease Alzheimer's disease onset: unspecified onset Dementia behavioral disturbance: without behavioral disturbance Qualified Codes: G30.9 - Alzheimer's disease, unspecified; F02.80 - Dementia in other diseases classified elsewhere without behavioral disturbance (3) Hematuria: Hematuria type: gross Qualified Codes: R31.0 - Gross hematuria (4) UTI (urinary tract infection): Urinary tract infection type: acute cystitis Hematuria presence: with hematuria Qualified Codes: N30.01 - Acute cystitis with hematuria PERICO ALVA DO Mar 04, 2018 11:00
--- NOTE | 2018-03-04 11:31 | NUR ---
CM FINALIZED D/C PLAN: Patient had been accepted to [facility] for skilled therapies. Finalized discharge orders faxed to [facility]. FS will pick up man patient at 1 p.m. today. Patient, PCCT, et Nurse notified. IVANIA BROWNB will fax completed care assessment when finished. No further interventions noted at this time.
[2018-03-04] MEDS: cefTRIAXone FOR IV USE 1,000 MG in NS (IVPB) 50 ML IV SCH (11:37)
[2018-03-04 13:30] VITALS: BP 156/72
--- NOTE | 2018-03-04 13:30 | NUR ---
DESTINEY ( NURSE ) AT [facility] demonstrates understanding of discharge instructions and accurately returns instructions upon questioning. Copy of Post-Discharge Instructions given to [facility] EMPLOYEE. NEAL GRANADOS is to manage continuing needs after discharge WITH ASSISITANCE OF [facility]. Patients belongings returned to PT. Patient discharged from [facility] on 03/04/18 at 1330. NEAL GRANADOS left floor via [facility] [employer]PL[facility]EE , accompanied by STAFF. REPORT CALLED TO DESTINEY ( NURSE ) AT [facility].
--- OUTSIDE RECORDS SUMMARY | 2018-03-04 15:03 | XMS REPORT | Clinical Summary ---
Author Author [facility] Organization [facility] Address Unknown Phone Unavailable Care Team Providers Care Energy Consultant Name Role Phone PCP Unavailable Source Comments Some departments are not documenting in the electronic medical record. If you do not see the information that you expected, contact Release of Information in the Health Information Management department at [phone] for further assistance in locating additional records.[facility] Allergies Comments Active Allergy Reactions Severity Noted Date Allergy recorded in SMS: Penicillin~Reactions: HIVES Penicillins 12/13/2005 Allergy recorded in SMS: Sulfa~Reactions: HIVES Sulfa (Sulfonamide 12/13/2005 Antibiotics) Medications Not on file Active Problems Not on file Social History Date Tobacco Use Types Packs/Day Years Used Never Assessed Sex Assigned at Date Recorded Not on file Industry Job Start Date Occupation Not on file Not on file Not on file Travel End Travel History Travel Start No recent travel history available. Last Filed Vital Signs Not on file Plan of Treatment Health Maintenance Due Date Last Done Comments HEPATITIS C SCREENING 1950 PHYSICAL (COMPREHENSIVE) 1957 EXAM DTAP/TDAP VACCINES (1 - 02/29/1968 Tdap) BREAST CANCER SCREENING 1990 COLORECTAL CANCER 02/29/2000 SCREENING SHINGLES RECOMBINANT 02/29/2000 VACCINE (1 of 2) OSTEOPOROSIS 2015 SCREENING/MONITORING PNEUMONIA (PCV13/PPSV23) 2015 VACCINES (1 of 2 - PCV13) INFLUENZA VACCINE 09/26/2017 Results Not on filefrom Last 3 Months
--- OUTSIDE RECORDS SUMMARY | 2018-03-04 15:03 | XMS REPORT | Clinical Summary ---
Author Author Admin, E Organization [facility] Address Unknown Phone Unavailable Allergies, Adverse Reactions, [...] Kari Laughlin MD Retention of urine, unspecified BMI 31-31.9 Active Kari Laughlin MD Body Mass Index 31.0-31.9, adult Obesity Class I (BMI 30-34.9) Active Kari Laughlin MD Obesity, unspecified Medication List Medication Instructions Start Date Stop Date Generic Name NDC Status Provider Patient Instruction CIPRO 500 MG ORAL TABLET 1 tablet two times daily CIPROFLOXACIN HCL 75704018130 No Longer Active Ana Swanson Active CIPRO 500 MG ORAL TABLET 1 tablet two times daily CIPROFLOXACIN HCL 79716407887 No Longer Active Ana Swanson Active VITAMIN D3 1000 UNIT ORAL CAPSULE 1 po qd CHOLECALCIFEROL 58107634425 Active Baldemar Active VITAMIN C 1000 MG ORAL TABLET 1 tab by mouth daily ASCORBIC ACID 98800036152 Active Baldemar Active RA VITAMIN B-12 100 MCG ORAL TABLET 1 tab by mouth daily CYANOCOBALAMIN 53134005061 Active Baldemar Active VISION FORMULA/LUTEIN ORAL TABLET 1 tab by mouth daily MULTIPLE VITAMINS-MINERALS 51097016906 Active Baldemar Active CALCIUM MAGNESIUM 750 300-300 MG ORAL TABLET 1 tab by mouth daily CALCIUM-MAGNESIUM 07454212955 Active Baldemar Active FISH OIL 1000 MG ORAL CAPSULE DELAYED RELEASE 1 pill by mouth daily for cholesterol OMEGA-3 FATTY ACIDS 83083560867 Active Baldemar Active ATORVASTATIN CALCIUM 10 MG ORAL TABLET 1 pill by mouth nightly, for cholesterol ATORVASTATIN CALCIUM 84575199160 Active Baldemar Active CITALOPRAM HYDROBROMIDE 20 MG ORAL TABLET 1 tablet by mouth daily CITALOPRAM HYDROBROMIDE 87564974167 Active Baldemar Active TRIMETHOPRIM 100 MG ORAL TABLET 1 tab by mouth daily TRIMETHOPRIM 09631751865 Active Baldemar Active COUMADIN 2.5 MG ORAL TABLET WARFARIN SODIUM 06671898112 Active Baldemar Active COREG CR 20 MG ORAL CAPSULE EXTENDED RELEASE 24 HOUR 1 tab by mouth daily CARVEDILOL PHOSPHATE 89312675029 Active Baldemar Active PANTOPRAZOLE SODIUM 40 MG ORAL TABLET DELAYED RELEASE 1 pill by mouth daily PANTOPRAZOLE SODIUM 89726709467 Active Baldemar Active METFORMIN HCL 1000 MG ORAL TABLET 1 tablet by mouth daily METFORMIN HCL 52494728786 Active Baldemar Active CIPRO 500 MG ORAL TABLET 1 tablet two times daily CIPROFLOXACIN HCL 97042587514 No Longer Active Ana Swanson Active CIPRO 500 MG ORAL TABLET 1 tablet two times daily CIPRO 500 MG ORAL TABLET 248714 CIPROFLOXACIN HCL Inactive CIPRO 500 MG ORAL TABLET 1 tablet two times daily CIPRO 500 MG ORAL TABLET 117255 CIPROFLOXACIN HCL Inactive CIPRO 500 MG ORAL TABLET 1 tablet two times daily CIPRO 500 MG ORAL TABLET 155300 CIPROFLOXACIN HCL Inactive Advance Directives Directive Description Start Date PERMISSION TO SHARE Immunizations Vaccine Administration Date Value Standard Description influenza immunization (Flu Vax) has been administered Done according to patient influenza virus vaccine, unspecified formulation Vital Signs Date Name Value Unit Range Description blood pressure, diastolic, repeated by physician 60 BP jaeger blood pressure, diastolic 60 mm[Hg] BP jaeger blood pressure, systolic, repeated by physician 120 BP sys blood pressure, systolic 120 mm[Hg] BP sys height E&M 62 [in_us] Bdy height pulse rate E&M 72 /min Heart rate temperature E&M 98.0 [degF] Body temperature weight E&M 170 [lb_av] Weight Measured blood pressure, diastolic 70 mm[Hg] BP jaeger blood pressure, systolic 130 mm[Hg] BP sys pulse rate E&M 76 /min Heart rate temperature E&M 98.3 [degF] Body temperature weight E&M 177 [lb_av] Weight Measured Diagnostic Results Date Name Value Unit Range Description Office Visit: f/u uti - PMH sexually transmitted disease no risk noted Office Visit: Follow up urinary retention - Chemistry protein, total urine random negative mg/dL RBC, urine, dipstick negative Office Visit: Follow up urinary retention - Urinalysis ketones, urine, by test strip negative bilirubin, urine negative glucose, urine, semiquantitative negative urine color yellow appearance, urine clear leukocyte esterase, urine, by dipstick negative nitrite, urine, semiquantitative negative urobilinogen, urine, semiquantitative (dipstick) negative protein, urine, semiquantitative (dipstick) negative pH, urine, semiquantitative 6.5 specific gravity, urine 1.005 urinalysis, routine Clean Catch culture status No Encounters Code Encounter Date Provider Facility CPT-64406 Level 3 Est. Patient 13:07:23 VINYL CUTTER Kari Laughlin MD [facility]-[address] [facility] 3 Est. Patient 23:38:20 CDT Kari Laughlin MD [facility] CPT-29014 Level 3 Est. Patient 22:47:15 VINYL CUTTER Kari Laughlin MD [facility] CPT-81456 Level 3 New Patient 21:44:21 CDT Kari Laughlin MD [facility] Procedures Code Procedure Name Date Entry Date Standard Description CPT-30496 ActHIB Intramuscular Solution Reconstituted 19:39:16 CDT CPT-53582 Bladder Scan 13:07:24 VINYL CUTTER CPT-88516 Bladder Scan 23:38:21 CDT CPT-78023 Urine Dip (Floor Use Only) 22:47:16 VINYL CUTTER CPT-11160 Insert non indwelling bld cath 21:44:21 CDT CPT-98127 Bladder Scan 21:44:21 CDT
--- OUTSIDE RECORDS SUMMARY | 2018-03-04 15:04 | XMS REPORT | Clinical Summary ---
Author Author Admin, E Organization [facility] Address Unknown Phone Unavailable [...] 1 tablet two times daily CIPROFLOXACIN HCL 36683694949 No Longer Active Ana Swanson Active CIPRO 500 MG ORAL TABLET 1 tablet two times daily CIPROFLOXACIN HCL 60000471266 No Longer Active Ana Swanson Active VITAMIN D3 1000 UNIT ORAL CAPSULE 1 po qd CHOLECALCIFEROL 11732076050 Active Stephanie Devlinr Active VITAMIN C 1000 MG ORAL TABLET 1 tab by mouth daily ASCORBIC ACID 34866238996 Active Stephanie Devlinr Active RA VITAMIN B-12 100 MCG ORAL TABLET 1 tab by mouth daily CYANOCOBALAMIN 11006716259 Active Baldemar Active VISION FORMULA/LUTEIN ORAL TABLET 1 tab by mouth daily MULTIPLE VITAMINS-MINERALS 81434204803 Active Stephanie Devlinr Active CALCIUM MAGNESIUM 750 300-300 MG ORAL TABLET 1 tab by mouth daily CALCIUM-MAGNESIUM 16962233949 Active Baldemar Active FISH OIL 1000 MG ORAL CAPSULE DELAYED RELEASE 1 pill by mouth daily for cholesterol OMEGA-3 FATTY ACIDS 87975577292 Active Baldemar Active ATORVASTATIN CALCIUM 10 MG ORAL TABLET 1 pill by mouth nightly, for cholesterol ATORVASTATIN CALCIUM 61360230479 Active Baldemar Active CITALOPRAM HYDROBROMIDE 20 MG ORAL TABLET 1 tablet by mouth daily CITALOPRAM HYDROBROMIDE 21040317498 Active Baldemar Active TRIMETHOPRIM 100 MG ORAL TABLET 1 tab by mouth daily TRIMETHOPRIM 78180625070 Active Baldemar Active COUMADIN 2.5 MG ORAL TABLET WARFARIN SODIUM 14632584473 Active Baldemar Active COREG CR 20 MG ORAL CAPSULE EXTENDED RELEASE 24 HOUR 1 tab by mouth daily CARVEDILOL PHOSPHATE 67055372832 Active Baldemar Active PANTOPRAZOLE SODIUM 40 MG ORAL TABLET DELAYED RELEASE 1 pill by mouth daily PANTOPRAZOLE SODIUM 05494703624 Active Baldemar Active METFORMIN HCL 1000 MG ORAL TABLET 1 tablet by mouth daily METFORMIN HCL 38188471179 Active Baldemar Active CIPRO 500 MG ORAL TABLET 1 tablet two times daily CIPROFLOXACIN HCL 25601842250 No Longer Active Ana Swanson Active CIPRO 500 MG ORAL TABLET 1 tablet two times daily CIPRO 500 MG ORAL TABLET 401249 CIPROFLOXACIN HCL Inactive CIPRO 500 MG ORAL TABLET 1 tablet two times daily CIPRO 500 MG ORAL TABLET 359808 CIPROFLOXACIN HCL Inactive CIPRO 500 MG ORAL TABLET 1 tablet two times daily CIPRO 500 MG ORAL TABLET 075219 CIPROFLOXACIN HCL Inactive Advance Directives Directive Description [...] No Encounters Code Encounter Date Provider Facility CPT-40916 Level 3 Est. Patient 13:07:23 TAR WORKER Kari Laughlin MD [facility]-66102 Level 3 Est. Patient 23:38:20 CDT Kari Laughlin MD [facility] CPT-50480 Level 3 Est. Patient 22:47:15 TAR WORKER Kari Laughlin MD [facility] CPT-36058 Level 3 New Patient 21:44:21 CDT Kari Laughlin MD [facility] Procedures Code Procedure Name Date Entry Date Standard Description CPT-68964 ActHIB Intramuscular Solution Reconstituted 19:39:16 CDT CPT-56216 Bladder Scan 13:07:24 TAR WORKER CPT-46734 Bladder Scan 23:38:21 CDT CPT-34497 Urine Dip (Floor Use Only) 22:47:16 TAR WORKER CPT-50484 Insert non indwelling bld cath 21:44:21 CDT CPT-14377 Bladder Scan 21:44:21 CDT
--- OUTSIDE RECORDS SUMMARY | 2018-03-04 15:04 | XMS REPORT | Clinical Summary ---
Author Author Admin, E Organization [facility] Address Unknown Phone Unavailable Allergies, Adverse Reactions, [...] 1 tablet two times daily CIPROFLOXACIN HCL 56796795977 No Longer Active Ana Swanson Active CIPRO 500 MG ORAL TABLET 1 tablet two times daily CIPROFLOXACIN HCL 31467718540 No Longer Active Ana Swanson Active VITAMIN D3 1000 UNIT ORAL CAPSULE 1 po qd CHOLECALCIFEROL 14871880323 Active Baldemar Active VITAMIN C 1000 MG ORAL TABLET 1 tab by mouth daily ASCORBIC ACID 37815656086 Active Baldemar Active RA VITAMIN B-12 100 MCG ORAL TABLET 1 tab by mouth daily CYANOCOBALAMIN 39790513077 Active Baldemar Active VISION FORMULA/LUTEIN ORAL TABLET 1 tab by mouth daily MULTIPLE VITAMINS-MINERALS 39132103207 Active Baldemar Active CALCIUM MAGNESIUM 750 300-300 MG ORAL TABLET 1 tab by mouth daily CALCIUM-MAGNESIUM 92021460133 Active Baldemar Active FISH OIL 1000 MG ORAL CAPSULE DELAYED RELEASE 1 pill by mouth daily for cholesterol OMEGA-3 FATTY ACIDS 69495956785 Active Baldemar Active ATORVASTATIN CALCIUM 10 MG ORAL TABLET 1 pill by mouth nightly, for cholesterol ATORVASTATIN CALCIUM 71665638967 Active Stephanie Mcdermott Active CITALOPRAM HYDROBROMIDE 20 MG ORAL TABLET 1 tablet by mouth daily CITALOPRAM HYDROBROMIDE 79058604344 Active Stephanie Mcdermott Active TRIMETHOPRIM 100 MG ORAL TABLET 1 tab by mouth daily TRIMETHOPRIM 49635424875 Active Stephanie Devlinr Active COUMADIN 2.5 MG ORAL TABLET WARFARIN SODIUM 34592169370 Active Stephanie Devlinr Active COREG CR 20 MG ORAL CAPSULE EXTENDED RELEASE 24 HOUR 1 tab by mouth daily CARVEDILOL PHOSPHATE 22686048825 Active Stephanie Mcderomtt Active PANTOPRAZOLE SODIUM 40 MG ORAL TABLET DELAYED RELEASE 1 pill by mouth daily PANTOPRAZOLE SODIUM 85475642465 Active Stephanie Mcdermott Active METFORMIN HCL 1000 MG ORAL TABLET 1 tablet by mouth daily METFORMIN HCL 95408413034 Active Stephanie Mcdermott Active CIPRO 500 MG ORAL TABLET 1 tablet two times daily CIPROFLOXACIN HCL 77998552862 No Longer Active Ana Swanson Active CIPRO 500 MG ORAL TABLET 1 tablet two times daily CIPRO 500 MG ORAL TABLET 282056 CIPROFLOXACIN HCL Inactive CIPRO 500 MG ORAL TABLET 1 tablet two times daily CIPRO 500 MG ORAL TABLET 871234 CIPROFLOXACIN HCL Inactive CIPRO 500 MG ORAL TABLET 1 tablet two times daily CIPRO 500 MG ORAL TABLET 595529 CIPROFLOXACIN HCL Inactive Advance Directives Directive Description Start Date PERMISSION TO SHARE Vital Signs Date Name Value Unit Range Description blood pressure, diastolic 70 mm[Hg] BP jaeger blood pressure, systolic 130 mm[Hg] BP sys pulse rate E&M 76 /min Heart rate temperature E&M 98.3 [degF] Body temperature weight E&M 177 [lb_av] Weight Measured Diagnostic Results Date Name Value Unit Range Description Office Visit: Follow up urinary retention - [...] negative Encounters Code Encounter Date Provider Facility CPT-95264 Level 3 Est. Patient 13:07:23 SALES ENGAGEMENT MANAGER Kari Laughlin MD [facility] CPT-11974 Level 3 Est. Patient 23:38:20 CDT Kari Laughlin MD [facility] CPT-41901 Level 3 Est. Patient 22:47:15 SALES ENGAGEMENT MANAGER Kari Laughlin MD [facility] CPT-99400 Level 3 New Patient 21:44:21 CDT Kari Laughlin MD [facility] Procedures Code Procedure Name Date Entry Date Standard Description CPT-77342 ActHIB Intramuscular Solution Reconstituted 19:39:16 CDT CPT-70050 Bladder Scan 13:07:24 SALES ENGAGEMENT MANAGER CPT-27549 Bladder Scan 23:38:21 CDT CPT-35729 Urine Dip (Floor Use Only) 22:47:16 SALES ENGAGEMENT MANAGER CPT-95877 Insert non indwelling bld cath 21:44:21 CDT CPT-90964 Bladder Scan 21:44:21 CDT
--- OUTSIDE RECORDS SUMMARY | 2018-03-04 15:04 | XMS REPORT | Clinical Summary ---
Author Author Admin, E Organization [facility] Address Unknown Phone Unavailable Allergies, Adverse Reactions, Alerts Allergy Name Reaction Description Start Date Severity Status Provider VICODIN anxiety Critical Active Baldemar PENICILLIN hives Critical Active Baldemar Conditions or Problems Problem Name Problem Code Onset Date Status Entry Date Provider Comment Standard Description Annotate UTI's, recurrent 599.0 Active Kari Laughlin MD Urinary tract infection, site not specified Incomplete Bladder Emptying Active Kair Laughlin MD Retention of urine, unspecified BMI 31-31.9 Active Kari Laughlin MD Body Mass Index 31.0-31.9, adult Obesity Class I (BMI 30-34.9) Active Kari Laughlin MD Obesity, unspecified Medication List Medication Instructions Start Date Stop Date Generic Name NDC Status Provider Patient Instruction CIPRO 500 MG ORAL TABLET 1 tablet two times daily CIPROFLOXACIN HCL 97834567644 No Longer Active Ana Swanson Active CIPRO 500 MG ORAL TABLET 1 tablet two times daily CIPROFLOXACIN HCL 65302791476 No Longer Active Ana Swanson Active VITAMIN D3 1000 UNIT ORAL CAPSULE 1 po qd CHOLECALCIFEROL 12883194788 Active Stephanie Devlinr Active VITAMIN C 1000 MG ORAL TABLET 1 tab by mouth daily ASCORBIC ACID 83046697497 Active Stephanie Devlinr Active RA VITAMIN B-12 100 MCG ORAL TABLET 1 tab by mouth daily CYANOCOBALAMIN 12907775654 Active Baldemar Active VISION FORMULA/LUTEIN ORAL TABLET 1 tab by mouth daily MULTIPLE VITAMINS-MINERALS 57971643349 Active Stephanie Devlinr Active CALCIUM MAGNESIUM 750 300-300 MG ORAL TABLET 1 tab by mouth daily CALCIUM-MAGNESIUM 98461105522 Active Baldemar Active FISH OIL 1000 MG ORAL CAPSULE DELAYED RELEASE 1 pill by mouth daily for cholesterol OMEGA-3 FATTY ACIDS 56417814924 Active Baldemar Active ATORVASTATIN CALCIUM 10 MG ORAL TABLET 1 pill by mouth nightly, for cholesterol ATORVASTATIN CALCIUM 61201006355 Active Baldemar Active CITALOPRAM HYDROBROMIDE 20 MG ORAL TABLET 1 tablet by mouth daily CITALOPRAM HYDROBROMIDE 97482332590 Active Baldemar Active TRIMETHOPRIM 100 MG ORAL TABLET 1 tab by mouth daily TRIMETHOPRIM 19047287760 Active Baldemar Active COUMADIN 2.5 MG ORAL TABLET WARFARIN SODIUM 87182546002 Active Baldemar Active COREG CR 20 MG ORAL CAPSULE EXTENDED RELEASE 24 HOUR 1 tab by mouth daily CARVEDILOL PHOSPHATE 52360775329 Active Baldemar Active PANTOPRAZOLE SODIUM 40 MG ORAL TABLET DELAYED RELEASE 1 pill by mouth daily PANTOPRAZOLE SODIUM 05623757365 Active Baldemar Active METFORMIN HCL 1000 MG ORAL TABLET 1 tablet by mouth daily METFORMIN HCL 62014993811 Active Baldemar Active CIPRO 500 MG ORAL TABLET 1 tablet two times daily CIPROFLOXACIN HCL 91410548016 No Longer Active Ana Swanson Active CIPRO 500 MG ORAL TABLET 1 tablet two times daily CIPRO 500 MG ORAL TABLET 230833 CIPROFLOXACIN HCL Inactive CIPRO 500 MG ORAL TABLET 1 tablet two times daily CIPRO 500 MG ORAL TABLET 693846 CIPROFLOXACIN HCL Inactive CIPRO 500 MG ORAL TABLET 1 tablet two times daily CIPRO 500 MG ORAL TABLET 754046 CIPROFLOXACIN HCL Inactive Advance Directives Directive Description [...] No Encounters Code Encounter Date Provider Facility CPT-96505 Level 3 Est. Patient 13:07:23 CLEAN ENERGY POLICY ANALYST Kari Laughlin MD [facility]-08950 Level 3 Est. Patient 23:38:20 CDT Kari Laughlin MD [facility] CPT-86330 Level 3 Est. Patient 22:47:15 CLEAN ENERGY POLICY ANALYST Kari Laughlin MD [facility] Ant CPT-41473 Level 3 New Patient 21:44:21 CDT Kari Laughlin MD [facility] Procedures Code Procedure Name Date Entry Date Standard Description CPT-91989 ActHIB Intramuscular Solution Reconstituted 19:39:16 CDT CPT-97203 Bladder Scan 13:07:24 CLEAN ENERGY POLICY ANALYST CPT-52516 Bladder Scan 23:38:21 CDT CPT-14138 Urine Dip (Floor Use Only) 22:47:16 CLEAN ENERGY POLICY ANALYST CPT-81563 Insert non indwelling bld cath 21:44:21 CDT CPT-09888 Bladder Scan 21:44:21 CDT
--- OUTSIDE RECORDS SUMMARY | 2018-03-04 15:04 | XMS REPORT | Clinical Summary ---
Author Author Admin, CARLA Organization [facility] Address Unknown Phone Unavailable Allergies, Adverse [...] 1 tablet two times daily CIPROFLOXACIN HCL 79798950900 No Longer Active Ana Swanson Active CIPRO 500 MG ORAL TABLET 1 tablet two times daily CIPROFLOXACIN HCL 26352187317 No Longer Active Naa Swanson Active VITAMIN D3 1000 UNIT ORAL CAPSULE 1 po qd CHOLECALCIFEROL 98055258881 Active Baldemar Active VITAMIN C 1000 MG ORAL TABLET 1 tab by mouth daily ASCORBIC ACID 42056262847 Active Baldemar Active RA VITAMIN B-12 100 MCG ORAL TABLET 1 tab by mouth daily CYANOCOBALAMIN 73155954306 Active Baldemar Active VISION FORMULA/LUTEIN ORAL TABLET 1 tab by mouth daily MULTIPLE VITAMINS-MINERALS 30387039616 Active Baldemar Active CALCIUM MAGNESIUM 750 300-300 MG ORAL TABLET 1 tab by mouth daily CALCIUM-MAGNESIUM 00157673211 Active Baldemar Active FISH OIL 1000 MG ORAL CAPSULE DELAYED RELEASE 1 pill by mouth daily for cholesterol OMEGA-3 FATTY ACIDS 89119215828 Active Baldemar Active ATORVASTATIN CALCIUM 10 MG ORAL TABLET 1 pill by mouth nightly, for cholesterol ATORVASTATIN CALCIUM 28154799932 Active Stephanie Mcdermott Active CITALOPRAM HYDROBROMIDE 20 MG ORAL TABLET 1 tablet by mouth daily CITALOPRAM HYDROBROMIDE 66126864667 Active Stephanie Mcdermott Active TRIMETHOPRIM 100 MG ORAL TABLET 1 tab by mouth daily TRIMETHOPRIM 07179260068 Active Stephanie Devlinr Active COUMADIN 2.5 MG ORAL TABLET WARFARIN SODIUM 30493835034 Active Stephanie Devlinr Active COREG CR 20 MG ORAL CAPSULE EXTENDED RELEASE 24 HOUR 1 tab by mouth daily CARVEDILOL PHOSPHATE 25977632054 Active Stephanie Mcdermott Active PANTOPRAZOLE SODIUM 40 MG ORAL TABLET DELAYED RELEASE 1 pill by mouth daily PANTOPRAZOLE SODIUM 28675787611 Active Stephanie Mcdermott Active METFORMIN HCL 1000 MG ORAL TABLET 1 tablet by mouth daily METFORMIN HCL 40321061646 Active Stephanie Mcdermott Active CIPRO 500 MG ORAL TABLET 1 tablet two times daily CIPROFLOXACIN HCL 82962334618 No Longer Active Ana Swanson Active CIPRO 500 MG ORAL TABLET 1 tablet two times daily CIPRO 500 MG ORAL TABLET 909670 CIPROFLOXACIN HCL Inactive CIPRO 500 MG ORAL TABLET 1 tablet two times daily CIPRO 500 MG ORAL TABLET 479176 CIPROFLOXACIN HCL Inactive CIPRO 500 MG ORAL TABLET 1 tablet two times daily CIPRO 500 MG ORAL TABLET 994332 CIPROFLOXACIN HCL Inactive Advance Directives Directive Description [...] negative Encounters Code Encounter Date Provider Facility CPT-03263 Level 3 Est. Patient 13:07:23 EGG GRADER Kari Laughlin MD [facility] CPT-14855 Level 3 Est. Patient 23:38:20 CDT Kari Laughlin MD [facility] Ant CPT-17832 Level 3 Est. Patient 22:47:15 EGG GRADER Kari Laughlin MD [facility] Ant CPT-37843 Level 3 New Patient 21:44:21 CDT Kari Laughlin MD [facility] Procedures Code Procedure Name Date Entry Date Standard Description CPT-40604 ActHIB Intramuscular Solution Reconstituted 19:39:16 CDT CPT-16004 Bladder Scan 13:07:24 EGG GRADER CPT-37425 Bladder Scan 23:38:21 CDT CPT-16846 Urine Dip (Floor Use Only) 22:47:16 EGG GRADER CPT-99781 Insert non indwelling bld cath 21:44:21 CDT CPT-80804 Bladder Scan 21:44:21 CDT
--- OUTSIDE RECORDS SUMMARY | 2018-03-04 15:04 | XMS REPORT | Clinical Summary ---
Author Author Admin, E Organization [facility] Address Unknown Phone Unavailable Allergies, [...] 1 tablet two times daily CIPROFLOXACIN HCL 75690069829 No Longer Active Ana Swanson Active CIPRO 500 MG ORAL TABLET 1 tablet two times daily CIPROFLOXACIN HCL 84381375522 No Longer Active Ana Swanson Active VITAMIN D3 1000 UNIT ORAL CAPSULE 1 po qd CHOLECALCIFEROL 74091691474 Active Stephanie Devlinr Active VITAMIN C 1000 MG ORAL TABLET 1 tab by mouth daily ASCORBIC ACID 62114540402 Active Stephanie Devlinr Active RA VITAMIN B-12 100 MCG ORAL TABLET 1 tab by mouth daily CYANOCOBALAMIN 41586063272 Active Baldemar Active VISION FORMULA/LUTEIN ORAL TABLET 1 tab by mouth daily MULTIPLE VITAMINS-MINERALS 31452065481 Active Stephanie Devlinr Active CALCIUM MAGNESIUM 750 300-300 MG ORAL TABLET 1 tab by mouth daily CALCIUM-MAGNESIUM 23417773591 Active Baldemar Active FISH OIL 1000 MG ORAL CAPSULE DELAYED RELEASE 1 pill by mouth daily for cholesterol OMEGA-3 FATTY ACIDS 09958710855 Active Baldemar Active ATORVASTATIN CALCIUM 10 MG ORAL TABLET 1 pill by mouth nightly, for cholesterol ATORVASTATIN CALCIUM 18022964936 Active Baldemar Active CITALOPRAM HYDROBROMIDE 20 MG ORAL TABLET 1 tablet by mouth daily CITALOPRAM HYDROBROMIDE 77228403016 Active Baldemar Active TRIMETHOPRIM 100 MG ORAL TABLET 1 tab by mouth daily TRIMETHOPRIM 23096198583 Active Baldemar Active COUMADIN 2.5 MG ORAL TABLET WARFARIN SODIUM 55235910261 Active Baldemar Active COREG CR 20 MG ORAL CAPSULE EXTENDED RELEASE 24 HOUR 1 tab by mouth daily CARVEDILOL PHOSPHATE 37364255734 Active Baldemar Active PANTOPRAZOLE SODIUM 40 MG ORAL TABLET DELAYED RELEASE 1 pill by mouth daily PANTOPRAZOLE SODIUM 17720076113 Active Baldemar Active METFORMIN HCL 1000 MG ORAL TABLET 1 tablet by mouth daily METFORMIN HCL 54394191379 Active Baldemar Active CIPRO 500 MG ORAL TABLET 1 tablet two times daily CIPROFLOXACIN HCL 96530434664 No Longer Active Ana Swanson Active CIPRO 500 MG ORAL TABLET 1 tablet two times daily CIPRO 500 MG ORAL TABLET 984017 CIPROFLOXACIN HCL Inactive CIPRO 500 MG ORAL TABLET 1 tablet two times daily CIPRO 500 MG ORAL TABLET 793851 CIPROFLOXACIN HCL Inactive CIPRO 500 MG ORAL TABLET 1 tablet two times daily CIPRO 500 MG ORAL TABLET 521040 CIPROFLOXACIN HCL Inactive Advance Directives Directive Description [...] No Encounters Code Encounter Date Provider Facility CPT-86647 Level 3 Est. Patient 13:07:23 CONSERVATOR ARTIFACTS Kari Laughlin MD [facility]-74907 Level 3 Est. Patient 23:38:20 CDT Kari Laughlin MD [facility] CPT-82367 Level 3 Est. Patient 22:47:15 CONSERVATOR ARTIFACTS Kari Laughlin MD [facility] Ant CPT-75207 Level 3 New Patient 21:44:21 CDT Kari Laughlin MD [facility] Procedures Code Procedure Name Date Entry Date Standard Description CPT-75061 ActHIB Intramuscular Solution Reconstituted 19:39:16 CDT CPT-22813 Bladder Scan 13:07:24 CONSERVATOR ARTIFACTS CPT-11178 Bladder Scan 23:38:21 CDT CPT-56785 Urine Dip (Floor Use Only) 22:47:16 CONSERVATOR ARTIFACTS CPT-25450 Insert non indwelling bld cath 21:44:21 CDT CPT-56507 Bladder Scan 21:44:21 CDT
--- OUTSIDE RECORDS SUMMARY | 2018-03-04 15:05 | XMS REPORT | Clinical Summary ---
Author Author Admin, E Organization [facility] Address Unknown Phone Unavailable Allergies, Adverse [...] 1 tablet two times daily CIPROFLOXACIN HCL 85558488558 No Longer Active Ana Swanson Active CIPRO 500 MG ORAL TABLET 1 tablet two times daily CIPROFLOXACIN HCL 78260337111 No Longer Active Ana Swanson Active VITAMIN D3 1000 UNIT ORAL CAPSULE 1 po qd CHOLECALCIFEROL 11243353140 Active Baldemar Active VITAMIN C 1000 MG ORAL TABLET 1 tab by mouth daily ASCORBIC ACID 27432974028 Active Baldemar Active RA VITAMIN B-12 100 MCG ORAL TABLET 1 tab by mouth daily CYANOCOBALAMIN 28439845234 Active Baldemar Active VISION FORMULA/LUTEIN ORAL TABLET 1 tab by mouth daily MULTIPLE VITAMINS-MINERALS 87056252008 Active Baldemar Active CALCIUM MAGNESIUM 750 300-300 MG ORAL TABLET 1 tab by mouth daily CALCIUM-MAGNESIUM 33156791989 Active Baldemar Active FISH OIL 1000 MG ORAL CAPSULE DELAYED RELEASE 1 pill by mouth daily for cholesterol OMEGA-3 FATTY ACIDS 97045974626 Active Baldeamr Active ATORVASTATIN CALCIUM 10 MG ORAL TABLET 1 pill by mouth nightly, for cholesterol ATORVASTATIN CALCIUM 38382744050 Active Stephanie Mcdermott Active CITALOPRAM HYDROBROMIDE 20 MG ORAL TABLET 1 tablet by mouth daily CITALOPRAM HYDROBROMIDE 53194364115 Active Stephanie Mcdermott Active TRIMETHOPRIM 100 MG ORAL TABLET 1 tab by mouth daily TRIMETHOPRIM 23761146538 Active Stephanie Devlinr Active COUMADIN 2.5 MG ORAL TABLET WARFARIN SODIUM 02596185058 Active Stephanie Devlinr Active COREG CR 20 MG ORAL CAPSULE EXTENDED RELEASE 24 HOUR 1 tab by mouth daily CARVEDILOL PHOSPHATE 53146477818 Active Stephanie Mcdermott Active PANTOPRAZOLE SODIUM 40 MG ORAL TABLET DELAYED RELEASE 1 pill by mouth daily PANTOPRAZOLE SODIUM 59333514742 Active Stephanie Mcdermott Active METFORMIN HCL 1000 MG ORAL TABLET 1 tablet by mouth daily METFORMIN HCL 97268002328 Active Stephanie Mcdermott Active CIPRO 500 MG ORAL TABLET 1 tablet two times daily CIPROFLOXACIN HCL 02443163142 No Longer Active Ana Swanson Active CIPRO 500 MG ORAL TABLET 1 tablet two times daily CIPRO 500 MG ORAL TABLET 910136 CIPROFLOXACIN HCL Inactive CIPRO 500 MG ORAL TABLET 1 tablet two times daily CIPRO 500 MG ORAL TABLET 608519 CIPROFLOXACIN HCL Inactive CIPRO 500 MG ORAL TABLET 1 tablet two times daily CIPRO 500 MG ORAL TABLET 935621 CIPROFLOXACIN HCL Inactive Advance Directives Directive Description [...] negative Encounters Code Encounter Date Provider Facility CPT-40252 Level 3 Est. Patient 13:07:23 FORMULA TECHNICIAN Kari Laughlin MD [facility] CPT-40421 Level 3 Est. Patient 23:38:20 CDT Kari Laughlin MD [facility] CPT-45039 Level 3 Est. Patient 22:47:15 FORMULA TECHNICIAN Kari Laughlin MD [facility] Ant CPT-25906 Level 3 New Patient 21:44:21 CDT Kari Laughlin MD [facility] Procedures Code Procedure Name Date Entry Date Standard Description CPT-23435 ActHIB Intramuscular Solution Reconstituted 19:39:16 CDT CPT-57014 Bladder Scan 13:07:24 FORMULA TECHNICIAN CPT-97541 Bladder Scan 23:38:21 CDT CPT-49950 Urine Dip (Floor Use Only) 22:47:16 FORMULA TECHNICIAN CPT-87127 Insert non indwelling bld cath 21:44:21 CDT CPT-13266 Bladder Scan 21:44:21 CDT
== END 2018-03-04 13:30 | DRG 372 ==
LOC: EDSTATUS 14:40 → 4TH 17:12 → UNDOADMOB 17:12 → UNDODISOB 03-04 13:30
PROVIDERS: ADMIT Family Medicine; ATTEND Family Medicine
DX: A04.72 Enterocolitis due to Clostridium difficile, not specified as recurrent (principal); G89.28 Other chronic postprocedural pain; S32.511D Fracture of superior rim of right pubis, subsequent encounter for fracture with routine healing; N30.01 Acute cystitis with hematuria; G30.9 Alzheimer's disease, unspecified; F02.80 Dementia in other diseases classified elsewhere, unspecified severity, without behavioral disturbance, psychotic disturbance, mood disturbance, and anxiety; E10.9 Type 1 diabetes mellitus without complications; Z66 Do not resuscitate; Z86.718 Personal history of other venous thrombosis and embolism; I12.9 Hypertensive chronic kidney disease with stage 1 through stage 4 chronic kidney disease, or unspecified chronic kidney disease; M19.91 Primary osteoarthritis, unspecified site; L98.419 Non-pressure chronic ulcer of buttock with unspecified severity; N18.9 Chronic kidney disease, unspecified; Z88.0 Allergy status to penicillin; Z88.5 Allergy status to narcotic agent; Z86.73 Personal history of transient ischemic attack (TIA), and cerebral infarction without residual deficits; Z85.41 Personal history of malignant neoplasm of cervix uteri; Z79.4 Long term (current) use of insulin; Z79.01 Long term (current) use of anticoagulants
CPT/HCPCS: 36415; 80048; 80053; 81000; 82962; 85025; 85610; 87088; 87324; 87449

== ENCOUNTER 2018-10-14 05:53 | Outpatient (CLI) | payer MEDICARE, MEDICAID ==
[~2018-10-14] VITALS: Ht 157.5 cm; Wt 76.2 kg
[~2018-10-14 05:53] MED LIST changes: +ACET325T49 PO; -ALEN70TA47 PO; +ALEN70TA5 PO; -AMLO5TAB7 PO; +AMLO5TAB9 PO; +ASCO10006 PO; +CALC-210 PO; +CALC-706 PO; +CEFD300C3 PO; +CHOL10007 PO; +CHOL4PAC3 PO; +CINN500C2 PO; +CYAN-41 PO; -CYAN10006 PO; +CYAN100081 PO; +CYAN100088 PO; +INSU100V6 SQ; +LOSA50TA63 PO; -LOSA50TA7 PO; +OCUVITE SOFTGE1 EACH PO; +OMG1KC PO; +VANC125S PO; -VIT1CAPS9 PO; +WARF2.5T82 PO
[2018-10-14] MEDS ORDERED: GABA-486 PO (14:55)
[2018-10-14] MEDS ORDERED: NITR-65 PO (14:55)
[2018-10-14] MEDS ORDERED: WARF3TAB56 PO (14:55)
[2018-10-14] MEDS ORDERED: MV-M1TAB38 PO (14:55)
[2018-10-14] MEDS ORDERED: AMLO2.5T4 PO (14:55)
[2018-10-14] MEDS ORDERED: DONE5TAB8 PO (14:55)
[2018-10-14] MEDS ORDERED: BUPR150T9 PO (14:55)
== END 2018-10-14 14:56 | disposition home or self-care (01) ==
LOC: PREOP 05:53
PROVIDERS: ATTEND Surgery
DX: Z01.818 Encounter for other preprocedural examination (principal)

== ENCOUNTER 2018-10-21 08:09 | Day surgery (SDC) | payer MEDICARE, MEDICAID ==
[~2018-10-21] VITALS: Ht 157.5 cm; Wt 76.2 kg
[2018-10-21] VITALS (9 sets, daily range): BP systolic 114–168; BP diastolic 48–72
[~2018-10-21 08:09] MED LIST changes: +AMLO2.5T4 PO; +BUPR150T9 PO; +GABA-486 PO; +MV-M1TAB38 PO; +NITR-65 PO
[2018-10-21] MEDS ORDERED: LACTATED RINGERS 1,000 ML IV ONE (08:11)
[2018-10-21] MEDS ORDERED: LACTATED RINGERS 1,000 ML IV STA (08:48)
[2018-10-21] MEDS ORDERED: PROPOFOL INJECTION 50 ML IV ONE (08:49)
[2018-10-21] MEDS ORDERED: HURRICAINE EXT TUBE (BENZOCAINE) XX PRN (09:00)
[2018-10-21] MEDS ORDERED: proPOfol 200 MG/20 ML (DIPRIVAN) VIAL IV ONE ×3 (09:26→10:03)
--- NOTE | 2018-10-21 10:30 | Anesthesia-General Post-Op ---
MAC Patient Condition Mental Status/LOC: Same as Preop Cardiovascular: Satisfactory Nausea/Vomiting: Absent Respiratory: Satisfactory Pain: Controlled Complications: Absent Post Op Complications Complications None Follow Up Care/Instructions Patient Instructions None needed. Anesthesiology Discharge Order Discharge Order Patient is doing well, no complaints, stable vital signs, no apparent adverse anesthesia problems. No complications reported per nursing. POP GIFFORD CRNA Oct 21, 2018 10:30
--- NOTE | 2018-10-21 11:07 | Progress Note-Post Operative ---
Post-Operative Progess Note Surgeon (s)/Forder Operator (s) Surgeon JAREN CHAVEZ DO Forder Operator: none Pre-Operative Diagnosis Dysphagia, Screening colon Post-Operative Diagnosis Duodenal polyp Gastritis Hiatal hernia Esophagitis Colon Polyps Diverticula Internal Hemorrhoids Procedure & Operative Findings Date of Procedure 10/21/18 Procedure Performed/Findings EGD with bx Colon with snare Colon with bx Anesthesia Type IV sedation by [employer] Estimated Blood Loss Estimated blood loss (mL): scant Specimens/Packing Specimens Removed Duodenal bx Antral bx Body of stomach bx GE jxn bx Cecal polyps Rectal polyps internal hemorrhoids JAREN CHAVEZ DO Oct 21, 2018 11:07
--- NOTE | 2018-10-21 18:47 | OPERATIVE REPORT ---
DATE OF SERVICE: 10/21/2018 PREOPERATIVE DIAGNOSES: 1. Dysphagia. 2. Screening colonoscopy. POSTOPERATIVE DIAGNOSES: 1. Duodenal polyps. 2. Gastritis. 3. Hiatal hernia. 4. Esophagitis. 5. Colon polyps. 6. Diverticula. 7. Internal hemorrhoids. PROCEDURES: 1. EGD with biopsy. 2. Colonoscopy with snare polypectomy. 3. Colonoscopy with cold biopsy. SURGEON: Jose Hall DO APPRENTICESHIP REPRESENTATIVE: None. ANESTHESIA: IV sedation by the KICK PRESS OPERATOR. SPECIMEN: 1. Biopsy from the duodenum, biopsy from the antrum, biopsy from the body of stomach, and biopsy from GE junction. 2. I believe two, one biopsy from the cecum, one polyp from the cecum taken in 3 bites and then I believe 3 rectal polyps. BLOOD LOSS: Scant. FLUIDS: Per anesthesia. POSTOPERATIVE CONDITION: Stable. INDICATION FOR PROCEDURE: The patient is a 68-year-old female who has been complaining of some dysphagia and she has not had a screening colonoscopy in a while. FINDINGS: The patient had some gastritis. She also had some nodularity in the duodenum, possible polyps. Pictures taken and biopsy done, may have also had a little bit of ulcers in the stomach and she had a hiatal hernia. In the colon, she had diverticula, 5 or 6 colon polyps and some internal hemorrhoids. PROCEDURE NOTE: After informed consent was obtained, the patient was brought to the endoscopy suite and placed in the left lateral decubitus position. She was administered IV sedation by the KICK PRESS OPERATOR who monitored her vitals the entire time, heart rate, blood pressure and pulse ox. I started with the EGD, placed the scope down the mouth through the esophagus into the stomach. I looked into the antrum, noted some gastritis, took a picture of this and then pushed into the duodenum. Duodenum looked like it was very nodular. Picture taken and biopsy done, but looked almost like duodenal polyps. Pulled back into the antrum, saw what looked like might be some ulcers, did a biopsy here and then did a biopsy of body of stomach, retroflexed the scope, saw a small hiatal hernia, took a picture of this and then pulled the scope into the esophagus at the GE junction and could again see the hiatal hernia and then did a biopsy of the GE junction, pulled the scope up the esophagus and did not see any other pathology or cause for obstruction or dysphagia. Pulled the scope up the esophagus and out the mouth. Switched cameras, switched gloves, went down below and started the colonoscopy. Pushed the scope in and on the way in, noted some diverticula, took picture of this, pushed in. There was some retained fecal material also saw an AVM just outside the cecum and then able to get to the cecum, noted the appendiceal orifice, saw a polyp in the appendiceal orifice, small polyps. Elected to do a cold biopsy to remove all of this and then saw another flat polyp, I elected to do snare polypectomy. This got in 3 pieces. All sent to pathology, noted the ileocecal valve and then slowly withdrew the scope insufflating to look circumferentially at the webb, looking at the cecum up the ascending colon to the hepatic flexure then down the transverse colon, splenic flexure, into the descending colon and down and sigmoid and finally into the rectum. In the rectum, saw 3 polyps, 1 small and 2 larger ones, able to do snare polypectomy and all these removed, all sent to pathology. Retroflexed the scope. In the rectal vault, saw some internal hemorrhoids, took a picture of this and then removed the scope. The patient tolerated the procedure, recovered in an endoscopy suite. Job ID: [id number] DocumentID: [id number] Dictated Date: 10/21/2018 15:50:49 Court Interpreter Date: 10/21/2018 18:46:32 Dictated By: JOSE HALL DO
== END 2018-10-21 11:53 | disposition home or self-care (01) ==
LOC: ENDO 08:09
PROVIDERS: ATTEND Surgery
DX: Z12.11 Encounter for screening for malignant neoplasm of colon (principal); D12.0 Benign neoplasm of cecum; D12.4 Benign neoplasm of descending colon; D12.8 Benign neoplasm of rectum; K29.50 Unspecified chronic gastritis without bleeding; K21.0 Gastro-esophageal reflux disease with esophagitis; K29.80 Duodenitis without bleeding; K44.9 Diaphragmatic hernia without obstruction or gangrene; K52.9 Noninfective gastroenteritis and colitis, unspecified; K31.7 Polyp of stomach and duodenum; K64.8 Other hemorrhoids; K57.30 Diverticulosis of large intestine without perforation or abscess without bleeding; I11.9 Hypertensive heart disease without heart failure; I48.91 Unspecified atrial fibrillation; I63.9 Cerebral infarction, unspecified; I82.409 Acute embolism and thrombosis of unspecified deep veins of unspecified lower extremity; E78.5 Hyperlipidemia, unspecified; E11.9 Type 2 diabetes mellitus without complications; E66.9 Obesity, unspecified; M19.90 Unspecified osteoarthritis, unspecified site; Z68.33 Body mass index [BMI] 33.0-33.9, adult; Z88.6 Allergy status to analgesic agent; Z88.0 Allergy status to penicillin
CPT/HCPCS: 82962; 88305

== ENCOUNTER 2019-02-16 20:13 | Emergency (ER) | payer MEDICARE, MEDICAID ==
[~2019-02-16] VITALS: Ht 157.4 cm; Wt 83.0 kg
[2019-02-16] MEDS ORDERED: DEXTROSE 50% 50 ML (IMS) SYR ONE (20:17)
--- NOTE | 2019-02-16 20:27 | ED General ---
General Stated Complaint: HYPOGLYCEMIA Source of Information: EMS History of Present Illness Date Seen by Provider: Feb 16, 2019 Time Seen by Provider: 20:22 Initial Comments 68-year-old female brought in due to blood sugar and blood pressure issues. EMS was called due to elevated blood pressures in the 200s with low blood sugar. Upon arrival patient is decreased responsive with a fingerstick blood sugar of 26. EMS had difficulty obtaining an IV so she is given 1 g glucagon I him. Patient has a known history of repeated low blood sugar issues due to poor management. Patient family reports that she has a machine day all taken her insulin. Patient had decreased responsiveness and is very diaphoretic upon arrival. Her blood sugar was 51 on fingerstick upon arrival to the ER. Allergies and Home Medications Allergies Coded Allergies: Penicillins (Verified Allergy, Intermediate, HIVES, 05/28/17) hydrocodone (Verified Allergy, Mild, VOMITING, 10/14/18) Home Medications Acetaminophen 325 Mg Tablet, 325 MG PO 0000,0600,1200,1800, (Reported) TAKES WITH 2 TRAMADOL EVERY 6 HOURS SCHEDULED FOR TWO WEEKS Amlodipine Besylate 2.5 Mg Tablet, 2.5 MG PO DAILY, (Reported) Ascorbic Acid 1,000 Mg Tablet, 1,000 MG PO BID, (Reported) Atorvastatin Calcium 10 Mg Tablet, 10 MG PO HS, (Reported) Bupropion HCl 150 Mg Tablet.er, 150 MG PO DAILY, (Reported) Calcium Carbonate/Mag Oxide/Zn 1 Each Tablet, 1 TAB PO BID, (Reported) Carvedilol 25 Mg Tablet, 25 MG PO BID, (Reported) Cholecalciferol (Vitamin D3) 1,000 Unit Capsule, 1,000 UNIT PO DAILY, (Reported) Cholestyramine/Aspartame 4 Gm Powd.pack, 4 GM PO ACHS Prescribed by: PERICO ALVA on 03/04/18 1008 Cyanocobalamin (Vitamin B-12) 1,000 Mcg/1 Ml Drops, 1,000 MCG PO BID, (Reported) Donepezil HCl 5 Mg Tablet, 10 MG PO HS, (Reported) Gabapentin 100 Mg Capsule, 100 MG PO HS, (Reported) Insulin Glargine,Hum.rec.anlog 100 Unit/1 Ml Vial, 15 UNIT SQ HS, (Reported) Insulin Lispro 100 Unit/1 Ml Vial, 8 UNITS SC TIDAC, (Reported) Losartan Potassium 50 Mg Tablet, 50 MG PO DAILY, (Reported) Mv-Mn/FA/Vit K/Lycop/Lut/Zeaxa 1 Each Tablet, 1 EACH PO DAILY, (Reported) Nitrofurantoin Monohyd/M-Cryst 100 Mg Capsule, 1 TAB PO DAILY, (Reported) [place] 3 Polyunsat Fatty Acids 1,000 Mg Cap, 1,000 MG PO BID, (Reported) Pantoprazole Sodium 40 Mg Tablet.dr, 40 MG PO DAILY, (Reported) Tramadol HCl 50 Mg Tablet, 50 MG PO Q6H PRN for PAIN-BREAKTHROUGH, (Reported) Warfarin Sodium 3 Mg Tablet, 3 MG PO DAILY, (Reported) Patient Home Medication List Home Medication List Reviewed: Yes Review of Systems Review of Systems Constitutional: diaphoresis Unable to obtain further history of present illness due to patient having decreased responsiveness upon arrival Past Fjodhcs-Auiltr-Emvbek Hx Patient Social History Former Smoker, Quit: Feb 28, 1979 2nd Hand Smoke Exposure: No Recent Foreign Travel: No Contact w/Someone Who Travel: No Recent Hopitalizations: No Immunizations Up To Date Tetanus Booster (TDap): Unknown Date of Pneumonia Vaccine: Dec 15, 2017 Date of Influenza Vaccine: Nov 30, 2017 Seasonal Allergies Seasonal Allergies: No Past Medical History Surgeries: Yes Bladder Surgery, Section, Gallbladder, Hysterectomy Respiratory: No Currently Using CPAP: No Currently Using BIPAP: No Cardiac: Yes (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) Atrial Fibrillation, Deep Vein Thrombosis, Hypertension Neurological: Yes (1997 ) Dementia, Stroke Reproductive Disorders: No Female Reproductive Disorders: Denies 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 Sexually Transmitted Disease: No HIV/AIDS: No Genitourinary: Yes Bladder Infection, UTI-Chronic Gastrointestinal: Yes Gastroesophageal Reflux Musculoskeletal: Yes (OSTEOPENIA) Arthritis, Fractures Endocrine: Yes Diabetes, Insulin dep HEENT: No (GLASSES, DENTURE (BOTTOM)) Loss of Vision: Denies Hearing Impairment: Denies Cancer: Yes (1975-REMOVED) Cervical Did You Recieve Any Treatments: Yes What Type of Treatment Did You: Radiation, Surgical Intervention Psychosocial: Yes (SITUATION) Depression Integumentary: No Blood Disorders: 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) Adverse Reaction/Blood Tranf: No (HAS HAD BLOOD WITH NO REACTION) Family Medical History Asthma 19 FATHER Diabetes mellitus 19 FATHER 19 MOTHER Hypertension 19 FATHER 19 MOTHER No Pertinent Family Hx, Hypertension Physical Exam Vital Signs Vital Signs - First Documented 02/16/19 20:14 Temp 36.1 Pulse 69 Resp 10 B/P (MAP) 210/117 (148) Pulse Ox 99 O2 Delivery Room Air Capillary Refill : Height, Weight, BMI Height: 5'2.00" Weight: 168lbs. 0.0oz. 76.224002sh; 30.7 BMI Method:Stated General Appearance: Other (lethargic, obtunded) Respiratory: Chest Non Tender, Lungs Clear, Normal Breath Sounds Cardiovascular: Regular Rate, Rhythm, No Edema Gastrointestinal: Soft Extremity: Normal Capillary Refill Neurologic/Psychiatric: Other (lethargic, will follow a few commands) Skin: Diaphoresis Progress/Results/Core Measures Suspected Sepsis SIRS Temperature: Pulse: Respiratory Rate: Blood Pressure / Mean: Results/Orders Lab Results Laboratory Tests Test 02/16/19 20:19 02/16/19 20:45 02/16/19 21:00 02/16/19 21:33 Range/Units Glucometer 51 *L 236 H 254 H 70-110 MG/DL Urine Color YELLOW Urine Clarity CLEAR Urine pH 5.5 5-9 Urine Specific [place] 1.020 1.016-1.022 Urine Protein NEGATIVE NEGATIVE Urine Glucose (UA) TRACE H NEGATIVE Urine Ketones NEGATIVE NEGATIVE Urine Nitrite NEGATIVE NEGATIVE Urine Bilirubin NEGATIVE NEGATIVE Urine Urobilinogen 0.2 < = 1.0 MG/DL Urine Leukocyte Esterase NEGATIVE NEGATIVE Urine RBC (Auto) 1+ H NEGATIVE Urine RBC >100 H /HPF Urine WBC NONE /HPF Urine Squamous Epithelial Cells 5-10 /HPF Urine Crystals NONE /LPF Urine Bacteria TRACE /HPF Urine Casts NONE /LPF Urine Mucus NEGATIVE /LPF Urine Culture Indicated NO My Orders Orders - EFREN BOOKER DO Accucheck Stat ONCE (02/16/19 20:20) D50w (Emergency) Syringe (Dextrose 50% 5 (02/16/19 20:30) Ct Head Wo-R/O Stroke (02/16/19 20:20) Ua Culture If Indicated (02/16/19 20:20) D50w (Emergency) Syringe (Dextrose 50% 5 (02/16/19 20:17) Medications Given in ED Current Medications Medications Dose Ordered Sig/Jean Claude Route Start Time Stop Time Status Last Admin Dose Admin Dextrose 50 ml ONCE ONCE IV 02/16/19 20:30 02/16/19 20:31 DC 02/16/19 20:20 50 ML Vital Signs/I&O 02/16/19 02/16/19 20:14 21:39 Temp 36.1 Pulse 69 67 Resp 10 18 B/P (MAP) 210/117 (148) 140/69 Pulse Ox 99 100 O2 Delivery Room Air Room Air Capillary Refill : Progress Note : Time: 21:35 Progress Note Patient responded appropriately to increase in her blood sugar. Patient was given D50 and then a meal. Her blood sugar remained elevated and she was acting appropriately. Patient with a negative head CT. Her blood pressure responded to the back to normal at 140s over 70s. Patient will be discharged back home in stable condition. Departure Impression Primary Impression: Hypoglycemic event in diabetes Disposition: 01 HOME, SELF-CARE Condition: Improved (back to baseline) Departure-Patient Inst. Referrals: SHAKEEL BRUCE DO (PCP/Family) Primary Care Physician Patient Instructions: Diabetes Type 2 (DC) EFREN BOOKER DO Feb 16, 2019 20:26
[2019-02-16] MEDS ORDERED: DEXTROSE 50% 50 ML (IMS) SYR IV ONE (20:30)
--- NOTE | 2019-02-16 20:51 | Diagnostic Imaging Report ---
PROCEDURE: CT head wo r/o stroke. TECHNIQUE: Multiple contiguous axial images were obtained through the brain without the use of intravenous contrast. Auto Exposure Controls were utilized during the CT exam to meet ALARA standards for radiation dose reduction. INDICATION: Hypertension. COMPARISON: 03/07/2015. FINDINGS: Chronic right parietal occipital cortical encephalomalacia is a stable finding. Also deep white matter left frontal lobe area of encephalomalacia also chronic. No new area of abnormal parenchymal attenuation and there were no findings of cerebral edema. There is no hemorrhage. No mass or mass effect. No evidence for elevated intracerebral pressures. IMPRESSION: Chronic old ischemic sequelae stable from 2016. No hemorrhage, edema or acute finding. Dictated by: Dictated on workstation # [id number]
[2019-02-16 21:09] LABS: CLARITY,URINE CLEAR; COLOR,URINE YELLOW; PH,URINE 5.5 (5-9); PROTEIN,URINE NEGATIVE (NEGATIVE)
[2019-02-16 21:10] LABS: BACTERIA,URINE TRACE /HPF; BILIRUBIN,URINE NEGATIVE (NEGATIVE); GLUCOSE, URINE (UA) TRACE (NEGATIVE); KETONES,URINE NEGATIVE (NEGATIVE); LEUKOCYTE ESTERASE ,URINE NEGATIVE (NEGATIVE); NITRITE,URINE NEGATIVE (NEGATIVE); RBC,URINE >100 /HPF
[2019-02-16 21:39] VITALS: BP 140/69
== END 2019-02-16 21:39 | disposition home or self-care (01) ==
LOC: EDUNIT# 20:13 → ER FS 20:15
DX: E11.649 Type 2 diabetes mellitus with hypoglycemia without coma (principal); I10 Essential (primary) hypertension; I48.91 Unspecified atrial fibrillation; F03.90 Unspecified dementia, unspecified severity, without behavioral disturbance, psychotic disturbance, mood disturbance, and anxiety; F32.9 Major depressive disorder, single episode, unspecified; K21.9 Gastro-esophageal reflux disease without esophagitis; Z85.41 Personal history of malignant neoplasm of cervix uteri; Z86.73 Personal history of transient ischemic attack (TIA), and cerebral infarction without residual deficits; Z86.718 Personal history of other venous thrombosis and embolism; Z87.440 Personal history of urinary (tract) infections; Z88.0 Allergy status to penicillin; Z88.5 Allergy status to narcotic agent; Z79.4 Long term (current) use of insulin; Z79.01 Long term (current) use of anticoagulants; Z87.891 Personal history of nicotine dependence; Z90.710 Acquired absence of both cervix and uterus; Z82.49 Family history of ischemic heart disease and other diseases of the circulatory system
CPT/HCPCS: 70450; 81000; 82962; 96374

== ENCOUNTER 2019-12-17 09:15 | Outpatient (RCR) | payer MEDICARE, MEDICAID ==
[~2019-12-17] VITALS: Ht 157 cm; Wt 80.4 kg
[~2019-12-17 09:15] MED LIST changes: +ASCO100024 PO; -ASCO10006 PO; +CALC-664 PO; -CALC1TAB94 PO; -PANT40TA3 PO; +PANT40TA52 PO; -TRAM50TA2 PO; +TRM50T PO; -WARF2.5T82 PO; +WRF2.5T PO
[2019-12-17] MEDS ORDERED: COLE1TAB PO (10:57)
[2019-12-17] MEDS ORDERED: MULT-1136 PO (10:57)
[2019-12-17] MEDS ORDERED: SUCR1TAB36 PO (10:57)
[2019-12-17] MEDS ORDERED: BUPR-42 PO (12:34)
[2019-12-17] MEDS ORDERED: RIVA20TA PO (12:34)
== END 2019-12-17 12:49 | disposition home or self-care (01) ==
LOC: PREOP 09:15
PROVIDERS: ATTEND Surgery
DX: Z01.818 Encounter for other preprocedural examination (principal)

== ENCOUNTER 2019-12-22 08:41 | Day surgery (SDC) | payer MEDICARE, MEDICAID ==
[~2019-12-22] VITALS: Ht 157 cm; Wt 80.4 kg
[~2019-12-22 08:41] MED LIST changes: -ALEN70TA5 PO; +ALEN70TA69 PO; +AMLO-250 PO; -AMLO5TAB9 PO; +BUPR-42 PO; +MULT-1136 PO; +RIVA20TA PO; +SUCR1TAB36 PO
[2019-12-22] MEDS ORDERED: LACTATED RINGERS 1,000 ML IV ONE (08:42)
[2019-12-22] MEDS ORDERED: LACTATED RINGERS 1,000 ML IV STA (08:46)
[2019-12-22] MEDS ORDERED: HURRICAINE EXT TUBE (BENZOCAINE) XX PRN (09:00)
[2019-12-22 09:03] VITALS: BP 174/98
--- NOTE | 2019-12-22 09:48 | Progress Note-Pre Operative ---
Pre-Operative Progress Note H&P Reviewed The H&P was reviewed, patient examined and no changes noted. Time Seen by Provider: 09:47 Date H&P Reviewed: Dec 22, 2019 Time H&P Reviewed: 09:48 Pre-Operative Diagnosis: Hx of Colon polyps, Anemia JAREN CHAVEZ DO Dec 22, 2019 09:48
[2019-12-22] MEDS ORDERED: inSUlin ASPART (NovoLOG) 1 UNIT/0.01 ML (CHARGE PER UNIT) ONE (09:57)
[2019-12-22] MEDS ORDERED: inSUlin ASPART (NovoLOG) 1 UNIT/0.01 ML (CHARGE PER UNIT) SC ONE (10:00)
[2019-12-22] MEDS ORDERED: inSUlin ASPART (NovoLOG) 1 UNIT/0.01 ML (CHARGE PER UNIT) IV ONE ×2 (11:30→12:00)
[2019-12-22] MEDS ORDERED: proPOfol 200 MG/20 ML (DIPRIVAN) VIAL IV ONE ×2 (11:46→12:16)
[2019-12-22] MEDS ORDERED: LABETALOL HCL 20 MG/4 ML VIAL ONE (12:07)
[2019-12-22 12:30] VITALS: BP 98/54
[2019-12-22 12:35] VITALS: BP 104/58
--- NOTE | 2019-12-22 12:37 | Progress Note-Post Operative ---
Post-Operative Progess Note Surgeon (s)/Dual Rate Dealer (s) Surgeon JAREN CHAVEZ DO Dual Rate Dealer: none Pre-Operative Diagnosis Hx of Colon polyps, Anemia Post-Operative Diagnosis Gastritis ??Gastric Ulcer hiatal hernia Polyps int hemorrhoids Procedure & Operative Findings Date of Procedure 12/22/19 Procedure Performed/Findings EGD with bx Colon with hot bx Anesthesia Type IV sedation by anesthesia Estimated Blood Loss Estimated blood loss (mL): scant Specimens/Packing Specimens Removed antral bx body of stomach bx GE jxn bx Asc colon polyps Cecal polyp JAREN CHAVEZ DO Dec 22, 2019 12:37
--- NOTE | 2019-12-22 12:38 | Endoscopy Discharge Instruct ---
Endo Procedure/Findings Findings 1.: Gastric Ulcer, Gastritis 2.: Hiatal Hernia 3.: Polyp 4.: Internal Hemorrhoids Discharge Instructions - Activity: You might feel a little sleepy until tomorrow. This is due to the medicine you received to relax you. Until tomorrow, you should: NOT drive a car, operate machinery or power tools. NOT drink any alcoholic beverages. NOT make any important decisions or sign importortant papers. Do not return to work until tomorrow, unless otherwise instructed. Resume previous activities tomorrow. Diet: Start by taking liquids. If you tolerate liquids, advance to solid food. 1.: Colonscopy in 3 years, EGD in 1 year Notify Physician - If you experience excessive bleeding, unusual abdominal pain, fever, or chest pain, contact your doctor immediately. JAREN CHAVEZ DO Dec 22, 2019 12:38
[2019-12-22 12:40] VITALS: BP 90/56
[2019-12-22 12:45] VITALS: BP 90/56
--- NOTE | 2019-12-22 12:46 | Anesthesia-General Post-Op ---
MAC Patient Condition Mental Status/LOC: Same as Preop Cardiovascular: Satisfactory Nausea/Vomiting: Absent Respiratory: Satisfactory Pain: Controlled Complications: Absent Post Op Complications Complications None Follow Up Care/Instructions Patient Instructions None needed. Anesthesiology Discharge Order Discharge Order Patient is doing well, no complaints, stable vital signs, no apparent adverse anesthesia problems. NERISSA KUMAR DO Dec 22, 2019 12:46
[2019-12-22 13:20] VITALS: BP 105/60
--- NOTE | 2019-12-23 21:04 | OPERATIVE REPORT ---
DATE OF SERVICE: 12/22/2019 PREOPERATIVE DIAGNOSES: History of polyps and anemia. POSTOPERATIVE DIAGNOSES: 1. Gastritis, questionable gastric ulcer and hiatal hernia. 2. Colon polyps. 3. Internal hemorrhoids. PROCEDURES: 1. EGD with biopsy. 2. Colonoscopy with hot biopsy. SURGEON: Jose Hall DO LAW OFFICE ASSISTANT: See postop note. ANESTHESIA: IV sedation by the anesthesiologist. SPECIMEN: Biopsy of the antrum, biopsy of body of stomach, biopsy from the gastric ulcer, biopsy of the GE junction and then an ascending colon polyp. Four of them were seen hot biopsy and then a large cecal polyp taken in 2 pieces. BLOOD LOSS: Scant. FLUIDS: Per anesthesia. POSTOPERATIVE CONDITION: Stable. INDICATION FOR PROCEDURE: The patient is a 69-year-old female who has a history of polyps, needed a workup. She also had some anemia, so needed an EGD. FINDINGS: The patient had some gastritis and what looked like a gastric ulcer that was biopsied. She also had a small hiatal hernia. In the colon, she had multiple polyps and she had some internal hemorrhoids. All sent to pathology. PROCEDURE NOTE: After informed consent was obtained, the patient was brought to the endoscopy suite, placed in bed in left lateral decubitus position. She was administered IV sedation by the anesthesiologist who then monitored her vitals the entire time, heart rate, blood pressure and pulse ox and we started with the EGD, placing scope down the mouth through the esophagus into the stomach. Noted some inflammation in the antrum, took a picture and then pushing the duodenum. Duodenum looked fine. Pulled back into the antrum, did a biopsy of the antrum and then retroflexed the scope, saw a small hiatal hernia, did a biopsy of body of stomach and then pulled the scope up, did a biopsy of the GE junction and then we pushed back in and noted what looked like an ulcer and did another biopsy of this ulcer. Suctioned the air out of stomach and then pulled the scope up the esophagus and out the mouth. Switched camera, switched gloves, went down below, started the colonoscopy. Placed the scope, pushed in and pushed in to about [address] in, noted lot of polyps in the ascending colon, took out 4 polyps with a hot biopsy, able to get to the cecum, took a picture of appendiceal orifice, noted the ileocecal valve and then in the cecum, saw another polyp that was removed in 2 bites to remove the entire polyp and then slowly withdrew the scope insufflating the circumferential webb looking at the cecum, up the ascending colon to the hepatic flexure, then down the transverse colon, splenic flexure, into the descending colon down in the sigmoid and finally into the rectum, retroflexed in rectal vault, had a very hard time retroflexing, but she did have some internal hemorrhoids, took a picture and then removed the scope. The patient tolerated the procedure and she was recovered in endoscopy suite. Job ID: [id number] DocumentID: [id number] Dictated Date: 12/23/2019 12:03:21 Financial Reporting Accountant Date: 12/23/2019 21:03:11 Dictated By: JOSE HALL DO
== END 2019-12-22 13:35 | disposition home or self-care (01) ==
LOC: ENDO 08:41
PROVIDERS: ATTEND Surgery
DX: D12.2 Benign neoplasm of ascending colon (principal); D12.0 Benign neoplasm of cecum; K29.70 Gastritis, unspecified, without bleeding; K29.50 Unspecified chronic gastritis without bleeding; D64.9 Anemia, unspecified; K44.9 Diaphragmatic hernia without obstruction or gangrene; K21.9 Gastro-esophageal reflux disease without esophagitis; K64.8 Other hemorrhoids; D12.8 Benign neoplasm of rectum; I10 Essential (primary) hypertension; I48.91 Unspecified atrial fibrillation; F32.9 Major depressive disorder, single episode, unspecified; M06.9 Rheumatoid arthritis, unspecified; E11.51 Type 2 diabetes mellitus with diabetic peripheral angiopathy without gangrene; M19.90 Unspecified osteoarthritis, unspecified site; E66.9 Obesity, unspecified; Z68.32 Body mass index [BMI] 32.0-32.9, adult; Z79.84 Long term (current) use of oral hypoglycemic drugs; Z79.899 Other long term (current) drug therapy; Z88.0 Allergy status to penicillin; Z88.5 Allergy status to narcotic agent; Z86.010 Personal history of colon polyps; Z90.710 Acquired absence of both cervix and uterus; Z95.5 Presence of coronary angioplasty implant and graft
CPT/HCPCS: 82962; 88305; 88342

== ENCOUNTER 2020-02-13 10:50 | Outpatient (RCR) | payer MEDICARE, MEDICAID ==
[~2020-02-13] VITALS: Ht 157.5 cm; Wt 80.4 kg
[2020-02-13 11:00] VITALS: BP 137/60
[2020-02-13] MEDS ORDERED: diphenhydrAMINE 50 MG/ML INJ (BENADRYL) IV PRN (11:15)
[2020-02-13] MEDS ORDERED: IRON DEXTRAN 1,000 MG/NS 250 ML IVPB IV ONE ×2 (11:15)
[2020-02-13] MEDS ORDERED: EPINEPHrine INJECTION 1 MG/ML AMP IM PRN (11:15)
[2020-02-13] MEDS ORDERED: IRON DEXTRAN 25 MG/NS 6.25 ML TOTAL VOLUME IV ONE ×3 (11:15)
[2020-02-13] MEDS ORDERED: RT-ALBUTEROL SULF 2.5 MG/3 ML PRE-MIX VIAL IH PRN (11:15)
[2020-02-13] MEDS ORDERED: HYDROCORTISONE 100 MG/2 ML (Solu-CORTEF) VIAL IV PRN (11:15)
[2020-02-13] MEDS ORDERED: NS IV 500 ML 500 ML IV SCH (11:15)
== END 2020-02-13 15:15 | disposition home or self-care (01) ==
LOC: SDC 10:50
PROVIDERS: ATTEND Surgery
DX: D64.9 Anemia, unspecified (principal)
CPT/HCPCS: 96365

== ENCOUNTER 2020-03-01 05:50 | Outpatient (RCR) | payer MEDICARE, MEDICAID ==
[~2020-03-01] VITALS: Ht 157.5 cm; Wt 75.8 kg
== END 2020-03-01 15:41 | disposition home or self-care (01) ==
LOC: PREOP 05:50
PROVIDERS: ATTEND Surgery
DX: Z01.818 Encounter for other preprocedural examination (principal)

== ENCOUNTER 2020-05-03 05:41 | Outpatient (RCR) | payer MEDICARE, MEDICAID ==
[~2020-05-03] VITALS: Ht 72.6 cm; Wt 15.5 kg
[~2020-05-03 05:41] MED LIST changes: -ALEN70TA69 PO; +ALEN70TA80 PO; +CALC-1026 PO; -CALC-664 PO
[2020-05-03] MEDS ORDERED: [UNRECOGNIZED DRUG - CODE] PO (16:54)
== END 2020-05-04 10:52 | disposition home or self-care (01) ==
LOC: PREOP 05:41
PROVIDERS: ATTEND Surgery
DX: Z01.818 Encounter for other preprocedural examination (principal)

== ENCOUNTER → 2020-05-10 | Day surgery (SDC) | payer MEDICARE, MEDICAID ==
[~2020-05-10] VITALS: Ht 154 cm; Wt 76.3 kg
[~2020-05-10] MED LIST changes: +HURRICAINE EXT TUBE (BENZOCAINE) ONE; +HURRICAINE EXT TUBE (BENZOCAINE) XX PRN; +LACTATED RINGERS 1,000 ML IV ONE; +LACTATED RINGERS 1,000 ML IV STA; +MIDAZOLAM 2 MG/2 ML (VERSED) VIAL ONE; +[UNRECOGNIZED DRUG - CODE] PO; +hydrALAZINE (APESOLINE) 20 MG/ML VIAL ONE; +proPOfol 200 MG/20 ML (DIPRIVAN) VIAL IV ONE
[2020-05-10 09:05] VITALS: BP 167/90
--- NOTE | 2020-05-10 09:56 | Progress Note-Pre Operative ---
Pre-Operative Progress Note H&P Reviewed The H&P was reviewed, patient examined and no changes noted. Time Seen by Provider: 09:52 Date H&P Reviewed: May 10, 2020 Time H&P Reviewed: 09:52 Pre-Operative Diagnosis: Gastric Ulcer, Anemia JAREN CHAVEZ DO May 10, 2020 09:56
--- NOTE | 2020-05-10 10:38 | Anesthesia-General Post-Op ---
MAC Patient Condition Mental Status/LOC: Same as Preop Cardiovascular: Satisfactory Nausea/Vomiting: Absent Respiratory: Satisfactory Pain: Controlled Complications: Absent Post Op Complications Complications None Follow Up Care/Instructions Patient Instructions None needed. Anesthesiology Discharge Order Discharge Order Patient is doing well, no complaints, stable vital signs, no apparent adverse anesthesia problems. No complications reported per nursing. MOISÉS DAVILA CRNA May 10, 2020 10:38
--- NOTE | 2020-05-10 10:39 | Progress Note-Post Operative ---
Post-Operative Progess Note Surgeon (s)/Through Operator (s) Surgeon JAREN CHAVEZ DO Through Operator: none Pre-Operative Diagnosis Gastric Ulcer, Anemia Post-Operative Diagnosis gastritis Hiatal hernia Procedure & Operative Findings Date of Procedure 05/10/20 Procedure Performed/Findings EGD with bx Anesthesia Type IV sedation by BEEF KILLER Estimated Blood Loss Estimated blood loss (mL): scant Specimens/Packing Specimens Removed antral bx GE jxn bx JAREN CHAVEZ DO May 10, 2020 10:39
--- NOTE | 2020-05-10 10:39 | Endoscopy Discharge Instruct ---
Endo Procedure/Findings Findings 1.: Gastritis 2.: Hiatal Hernia Discharge Instructions - Activity: You might feel a little sleepy until tomorrow. This is due to the medicine you received to relax you. Until tomorrow, you should: NOT drive a car, operate machinery or power tools. NOT drink any alcoholic beverages. NOT make any important decisions or sign importortant papers. Do not return to work until tomorrow, unless otherwise instructed. Resume previous activities tomorrow. Diet: Start by taking liquids. If you tolerate liquids, advance to solid food. 1.: EGD in 3 years Notify Physician - If you experience excessive bleeding, unusual abdominal pain, fever, or chest pain, contact your doctor immediately. JAREN CHAVEZ DO May 10, 2020 10:39
[2020-05-10 10:40] VITALS: BP 111/55
[2020-05-10 10:45] VITALS: BP 114/59
[2020-05-10 10:50] VITALS: BP_SYST 110; BP_SYST 123; BP_DIAS 56; BP_DIAS 69
--- NOTE | 2020-05-10 21:46 | OPERATIVE REPORT ---
DATE OF SERVICE: 05/10/2020 PREOPERATIVE DIAGNOSIS: Gastric ulcer. POSTOPERATIVE DIAGNOSES: Mild gastritis, small hiatal hernia. PROCEDURE: EGD with biopsy. SURGEON: Jose Hall DO GLOST TILE SHADER: None. ANESTHESIA: IV sedation by the CARD GAME OPERATOR. SPECIMEN: Biopsy of the antrum, biopsy of GE junction. BLOOD LOSS: Scant. FLUIDS: Per anesthesia. POSTOPERATIVE CONDITION: Stable. INDICATION FOR PROCEDURE: The patient is a 70-year-old female who on previous EGD had a gastric ulcer needed to make sure this was healed. OBJECTIVE FINDINGS: The patient had some very mild gastritis, did not see any ulcers. She also had a small hiatal hernia. PROCEDURE NOTE: After informed consent was obtained, the patient was brought to the endoscopy suite, placed in bed in left lateral decubitus position. She was administered IV sedation by the CARD GAME OPERATOR who then monitored her vitals the entire time, heart rate, blood pressure and pulse ox and the scope was inserted down the mouth through the esophagus into the stomach, able to push, pass the antrum, which showed some mild gastritis in the duodenum, took a picture of this, looked fine. Pulled back, took a picture of the antrum and then did a biopsy of this, retroflexed the scope, did not see any inflammation in the body of the stomach or any ulcers, saw what looked like a small hiatal hernia. Pulled the scope into the GE junction and did a biopsy here, took a picture and then took a picture up in the middle of the esophagus, this looked normal. At this point, suctioned all the air out of stomach and then pulled the scope up the esophagus and out the mouth. The patient tolerated the procedure, recovered in endoscopy suite. Job ID: [id number] DocumentID: [id number] Dictated Date: 05/10/2020 16:00:15 Insert Molding Operator Date: 05/10/2020 21:46:02 Dictated By: JOSE HALL DO
== END ==
LOC: ENDO 08:42
PROVIDERS: ATTEND Surgery
DX: K21.00 Gastro-esophageal reflux disease with esophagitis, without bleeding (principal); K44.9 Diaphragmatic hernia without obstruction or gangrene; K29.70 Gastritis, unspecified, without bleeding; K25.9 Gastric ulcer, unspecified as acute or chronic, without hemorrhage or perforation; I10 Essential (primary) hypertension; I48.91 Unspecified atrial fibrillation; F32.9 Major depressive disorder, single episode, unspecified; M19.90 Unspecified osteoarthritis, unspecified site; E11.9 Type 2 diabetes mellitus without complications; D50.9 Iron deficiency anemia, unspecified; E66.9 Obesity, unspecified; Z68.32 Body mass index [BMI] 32.0-32.9, adult; Z79.899 Other long term (current) drug therapy; Z88.0 Allergy status to penicillin; Z88.5 Allergy status to narcotic agent; Z86.73 Personal history of transient ischemic attack (TIA), and cerebral infarction without residual deficits; Z95.5 Presence of coronary angioplasty implant and graft; Z79.84 Long term (current) use of oral hypoglycemic drugs; Z90.710 Acquired absence of both cervix and uterus
CPT/HCPCS: 82962; 88305

== ENCOUNTER 2020-05-18 14:23 | Emergency (ER) | payer MEDICARE, MEDICAID ==
[~2020-05-18] VITALS: Ht 157.5 cm; Wt 76.2 kg
[~2020-05-18 14:23] MED LIST changes: -HURRICAINE EXT TUBE (BENZOCAINE) ONE; -HURRICAINE EXT TUBE (BENZOCAINE) XX PRN; -LACTATED RINGERS 1,000 ML IV ONE; -LACTATED RINGERS 1,000 ML IV STA; -MIDAZOLAM 2 MG/2 ML (VERSED) VIAL ONE; -hydrALAZINE (APESOLINE) 20 MG/ML VIAL ONE; -proPOfol 200 MG/20 ML (DIPRIVAN) VIAL IV ONE
--- NOTE | 2020-05-18 14:35 | ED General ---
General Stated Complaint: LOW GLUCOSE Source of Information: Patient Exam Limitations: No Limitations History of Present Illness Date Seen by Provider: May 18, 2020 Time Seen by Provider: 14:31 Initial Comments To ER by EMS from Dr. Gonzalez's office. She has been seeing Dr. Laughlin in [place] for frequent/recurrent urinary tract infections. She wanted to switch to Dr. Gonzalez and saw him today for the first time. She is on prophylactic Macrobid. She took 8 units of Humalog before going to his office and did not eat lunch. She was confused and with slurred speech at Dr. Gonzalez's office. They had no way of checking her blood sugar. EMS was summoned and found her slumped over in the chair disoriented. Glucose was 58. They gave 10 g of IV dextrose with resultant increase in blood sugar up to the 200 range with also resultant improvement in mental status. Upon arrival to ER she states she feels back to normal and is alert and oriented. Timing/Duration: 1/2 Hour Severity: Moderate Associated Systoms: Denies Symptoms Allergies and Home Medications Allergies Coded Allergies: Penicillins (Verified Allergy, Intermediate, HIVES, 12/17/19) hydrocodone (Verified Allergy, Mild, VOMITING, 12/17/19) Home Medications Atorvastatin Calcium 10 Mg Tablet, 10 MG PO HS, (Reported) Bupropion HCl 150 Mg Tab.er.24h, 150 MG PO DAILY, (Reported) Calcium Carb/D3/Magnesium/Zinc 1 Each Tablet, 1 EACH PO DAILY, (Reported) Carvedilol 25 Mg Tablet, 25 MG PO BID, (Reported) Colestipol HCl 1 Gm Tablet, 1 GM PO TID, (Reported) Gabapentin 100 Mg Capsule, 100 MG PO HS, (Reported) Insulin Glargine,Hum.rec.anlog 100 Unit/1 Ml Vial, 20 UNIT SQ HS, (Reported) Insulin Lispro 100 Unit/1 Ml Vial, 8 UNITS SC TIDAC, (Reported) SSI: 5 @ BREAKFAST 6 @ LUNCH 9 @ SUPPER PLUS 1 UNIT FOR EVERY 40 OVER 180 Losartan Potassium 50 Mg Tablet, 50 MG PO DAILY, (Reported) Multivitamin 1 Each Tablet, 1 EACH PO DAILY, (Reported) Nitrofurantoin Monohyd/M-Cryst 100 Mg Capsule, 1 TAB PO DAILY, (Reported) Pantoprazole Sodium 40 Mg Tablet.dr, 40 MG PO BID, (Reported) Rivaroxaban 20 Mg Tablet, 20 MG PO DAILY, (Reported) Sucralfate 1 Gm Tablet, 1 GM PO TID, (Reported) Patient Home Medication List Home Medication List Reviewed: Yes Review of Systems Review of Systems Constitutional: see HPI EENTM: see HPI Respiratory: no symptoms reported Cardiovascular: no symptoms reported Genitourinary: no symptoms reported Musculoskeletal: no symptoms reported Skin: no symptoms reported Psychiatric/Neurological: No Symptoms Reported Hematologic/Lymphatic: No Symptoms Reported Immunological/Allergic: no symptoms reported Past Frwazdd-Ytjoft-Irdbtu Hx Patient Social History Type Used: Cigarettes Former Smoker, Quit: Feb 28, 1979 2nd Hand Smoke Exposure: No Recent Hopitalizations: No Immunizations Up To Date Tetanus Booster (TDap): Unknown Date of Pneumonia Vaccine: Dec 15, 2017 Date of Influenza Vaccine: Dec 03, 2019 Seasonal Allergies Seasonal Allergies: No Past Medical History Surgeries: Yes Bladder Surgery, Section, Gallbladder, Hysterectomy Respiratory: No Currently Using CPAP: No Currently Using BIPAP: No Cardiac: Yes (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) Atrial Fibrillation, Deep Vein Thrombosis, Hypertension Neurological: Yes (1997 ) Dementia, Stroke Reproductive Disorders: No Female Reproductive Disorders: Denies 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 Sexually Transmitted Disease: No HIV/AIDS: No Genitourinary: Yes Bladder Infection, UTI-Chronic Gastrointestinal: Yes Gastroesophageal Reflux Musculoskeletal: Yes (OSTEOPENIA) Arthritis, Fractures Endocrine: Yes Diabetes, Insulin dep HEENT: No (GLASSES, DENTURE (BOTTOM)) Loss of Vision: Denies Hearing Impairment: Denies Cancer: Yes (1975-REMOVED) Cervical Did You Recieve Any Treatments: Yes What Type of Treatment Did You: Radiation, Surgical Intervention Psychosocial: Yes (SITUATION) Depression Integumentary: No Blood Disorders: 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) Adverse Reaction/Blood Tranf: No (HAS HAD BLOOD WITH NO REACTION) Family Medical History Asthma 19 FATHER Diabetes mellitus 19 FATHER 19 MOTHER Hypertension 19 FATHER 19 MOTHER No Pertinent Family Hx, Hypertension Physical Exam Vital Signs Vital Signs - First Documented 05/18/20 14:25 Temp 35.6 Pulse 58 Resp 20 B/P (MAP) 187/87 (120) Pulse Ox 99 O2 Delivery Room Air Capillary Refill : Height, Weight, BMI Height: 5'2.00" Weight: 168lbs. 0.0oz. [id number]; 32.17 BMI Method:Stated General Appearance: No Apparent Distress, WD/WN, Other (Alert and oriented speech is not slurred. She moves all extremities. She recalls all events. She is is very pleasant but would like something to eat. She is alert and oriented) Eyes: Bilateral Eye Normal Inspection, Bilateral Eye PERRL, Bilateral Eye EOMI Neck: Full Range of Motion, Normal Inspection Respiratory: Lungs Clear, Normal Breath Sounds, No Accessory Muscle Use, No Respiratory Distress Gastrointestinal: Normal Bowel Sounds, Non Tender, Soft Extremity: Normal Capillary Refill, Normal Inspection Neurologic/Psychiatric: Alert, Oriented x3 Skin: Normal Color, Warm/Dry Progress/Results/Core Measures Suspected Sepsis SIRS Temperature: Pulse: Respiratory Rate: Laboratory Tests 05/18/20 15:18: Blood Pressure / Mean: Laboratory Tests 05/18/20 15:18: Results/Orders Lab Results Laboratory Tests Test 05/18/20 14:28 05/18/20 15:18 Range/Units Glucometer 151 H 70-110 MG/DL My Orders Orders - GOPI CEJA APRN Cbc With Automated Diff (05/18/20 14:30) Comprehensive Metabolic Panel (05/18/20 14:30) Ua Culture If Indicated (05/18/20 14:30) Cho 75g/M 0snack (21-2400 Felice) (05/18/20 Lunch) Vital Signs/I&O 05/18/20 14:25 Temp 35.6 Pulse 58 Resp 20 B/P (MAP) 187/87 (120) Pulse Ox 99 O2 Delivery Room Air Capillary Refill : Departure Communication (Admissions) 0989-patient has eaten some chicken strips and [place] fries. She still feels normal alert and oriented. Vitals are stable. Labs are still pending. Her son Justin is an hardware technician here and he is leaving for the day and he will be her ride home. Since she is still normal on clinical exam I will go ahead and discharge her and be in touch with him in regards to any abnormal labs. Discussed this with the patient and she agrees this is fine. Impression Primary Impression: Hypoglycemic event in diabetes Disposition: HOME, SELF-CARE Condition: Stable Departure-Patient Inst. Decision time for Depature: 15:34 Referrals: RICA JOHNSTON DO (PCP/Family) Primary Care Physician Patient Instructions: HYPOGLYCEMIA GOPI CEJA APRN May 18, 2020 14:35
[2020-05-18 15:38] LABS: ALBUMIN 3.8 GM/DL (3.2-4.5); POTASSIUM 3.8 MMOL/L (3.6-5.0)
[2020-05-18 15:40] LABS: TOTAL PROTEIN 6.8 GM/DL (6.4-8.2)
[2020-05-18 15:42] VITALS: BP 158/86
[2020-05-18 15:42] LABS: BILIRUBIN,TOTAL 0.4 MG/DL (0.1-1.0)
[2020-05-18 15:43] LABS: BASOPHILS % (AUTO) 1 % (0-10); EOSINOPHILS # (AUTO) 0.3 10^3/uL (0.0-0.3); EOSINOPHILS % (AUTO) 3 % (0-10); HEMATOCRIT 39 % (35-52); HEMOGLOBIN 11.8 g/dL (11.5-16.0); LYMPHOCYTES # (AUTO) 1.3 X 10^3 (1.0-4.0); LYMPHOCYTES % (AUTO) 15 % (12-44); MEAN CORPUSCULAR HEMOGLOBIN 26 pg (25-34); MEAN CORPUSCULAR HGB CONC 30 g/dL (32-36); MEAN CORPUSCULAR VOLUME 85 fL (80-99); MEAN PLATELET VOLUME 9.8 fL (9.0-12.2); MONOCYTES # (AUTO) 0.4 X 10^3 (0.0-1.0); MONOCYTES % (AUTO) 5 % (0-12); NEUTROPHILS # (AUTO) 6.6 X 10^3 (1.8-7.8); NEUTROPHILS % (AUTO) 77 % (42-75); PLATELET COUNT 269 10^3/uL (130-400); WHITE BLOOD COUNT 8.6 10^3/uL (4.3-11.0)
[2020-05-18 15:44] LABS: CREATININE SERUM 1.24 MG/DL (0.60-1.30)
== END 2020-05-18 15:42 | disposition home or self-care (01) ==
LOC: EDUNIT# 14:23 → ER 14:24
DX: E11.649 Type 2 diabetes mellitus with hypoglycemia without coma (principal); I10 Essential (primary) hypertension; K21.9 Gastro-esophageal reflux disease without esophagitis; I48.91 Unspecified atrial fibrillation; F32.9 Major depressive disorder, single episode, unspecified; Z88.0 Allergy status to penicillin; Z88.5 Allergy status to narcotic agent; Z86.73 Personal history of transient ischemic attack (TIA), and cerebral infarction without residual deficits; Z85.41 Personal history of malignant neoplasm of cervix uteri; Z86.718 Personal history of other venous thrombosis and embolism; Z87.891 Personal history of nicotine dependence; Z79.01 Long term (current) use of anticoagulants; Z79.4 Long term (current) use of insulin
CPT/HCPCS: 36415; 80053; 82962; 85025

== ENCOUNTER 2020-10-19 22:02 | Inpatient (IN) | payer MEDICARE, MEDICAID ==
[~2020-10-19] VITALS: Ht 157.4 cm; Wt 88.0 kg
[~2020-10-19 22:02] MED LIST changes: +CALC-195 PO; +DICL100G13 TOP; -DICL100G31 TOP; -SULF1TAB35 PO; +SULF1TAB38 PO; -[UNRECOGNIZED DRUG - CODE] PO
--- NOTE | 2020-10-19 22:06 | ED General ---
General Stated Complaint: HIGH BP History of Present Illness Date Seen by Provider: Oct 19, 2020 Time Seen by Provider: 22:03 Initial Comments Patient lives in assisted living facility and states that tonight she was sitting watching television and just did not feel right. She checked her blood pressure and it was high so they called 911. On EMS arrival, patient was awake and alert with blood pressure 190s over 90 otherwise without any serious complaint. Patient denies chest pain, swollen extremities, recent fever chills, cough or shortness of air. Abdominal pain, nausea vomiting or diarrhea. She is on xarelto Allergies and Home Medications Allergies Coded Allergies: Penicillins (Verified Allergy, Intermediate, HIVES, 12/17/19) hydrocodone (Verified Allergy, Mild, VOMITING, 12/17/19) Home Medications Atorvastatin Calcium 10 Mg Tablet, 10 MG PO HS, (Reported) Bupropion HCl 150 Mg Tab.er.24h, 150 MG PO DAILY, (Reported) Calcium Carb/D3/Magnesium/Zinc 1 Each Tablet, 1 EACH PO DAILY, (Reported) Carvedilol 25 Mg Tablet, 25 MG PO BID, (Reported) Colestipol HCl 1 Gm Tablet, 1 GM PO TID, (Reported) Gabapentin 100 Mg Capsule, 100 MG PO HS, (Reported) Insulin Glargine,Hum.rec.anlog 100 Unit/1 Ml Vial, 20 UNIT SQ HS, (Reported) Insulin Lispro 100 Unit/1 Ml Vial, 8 UNITS SC TIDAC, (Reported) SSI: 5 @ BREAKFAST 6 @ LUNCH 9 @ SUPPER PLUS 1 UNIT FOR EVERY 40 OVER 180 Losartan Potassium 50 Mg Tablet, 50 MG PO DAILY, (Reported) Multivitamin 1 Each Tablet, 1 EACH PO DAILY, (Reported) Nitrofurantoin Monohyd/M-Cryst 100 Mg Capsule, 1 TAB PO DAILY, (Reported) Pantoprazole Sodium 40 Mg Tablet.dr, 40 MG PO BID, (Reported) Rivaroxaban 20 Mg Tablet, 20 MG PO DAILY, (Reported) Sucralfate 1 Gm Tablet, 1 GM PO TID, (Reported) Patient Home Medication List Home Medication List Reviewed: Yes Review of Systems Review of Systems Constitutional: No fever, No malaise, No weakness Respiratory: No cough, No short of breath Cardiovascular: No chest pain, No edema, No palpitations, No syncope Gastrointestinal: No abdominal pain, No constipation, No diarrhea, No hematemesis, No loss of appetite, No melena, No nausea, No vomiting Skin: No change in color, No rash Past Fkayhtr-Dvfjml-Bxfnyi Hx Patient Social History Tobacco Use?: No Physical Exam Vital Signs Vital Signs - First Documented 10/19/20 22:02 Temp 36.7 Pulse 85 Resp 16 B/P (MAP) 234/90 (138) Pulse Ox 100 O2 Delivery Room Air Capillary Refill : Height, Weight, BMI Height: '" Weight: lbs. oz. kg; BMI Method: General Appearance: No Apparent Distress, WD/WN HEENT: PERRL/EOMI, Normal ENT Inspection Neck: Non Tender, Supple Respiratory: Chest Non Tender, Lungs Clear, Normal Breath Sounds Cardiovascular: Regular Rate, Rhythm, No Edema, No JVD Gastrointestinal: Normal Bowel Sounds, Non Tender, Soft Back: Normal Inspection, No CVA Tenderness Extremity: Normal Capillary Refill, Non Tender, No Calf Tenderness Neurologic/Psychiatric: Alert, Oriented x3, No Motor/Sensory Deficits, Normal Mood/Affect Skin: Normal Color, Warm/Dry Progress/Results/Core Measures Suspected Sepsis SIRS Temperature: Pulse: Respiratory Rate: Laboratory Tests 10/19/20 22:06: White Blood Count 3.4L Blood Pressure / Mean: Laboratory Tests 10/19/20 22:06: Creatinine 1.47H, Platelet Count 225, Total Bilirubin 0.2 Results/Orders Lab Results Laboratory Tests Test 10/19/20 22:06 Range/Units White Blood Count 3.4 L 4.3-11.0 10^3/uL Red Blood Count 2.71 L 3.80-5.11 10^6/uL Hemoglobin 4.5 *L 11.5-16.0 g/dL Hematocrit 18 *L 35-52 % Mean Corpuscular Volume 65 L 80-99 fL Mean Corpuscular Hemoglobin 17 L 25-34 pg Mean Corpuscular Hemoglobin Concent 26 L 32-36 g/dL Red Cell Distribution Width 18.8 H 10.0-14.5 % Platelet Count 225 130-400 10^3/uL Mean Platelet Volume 11.1 9.0-12.2 fL Immature Granulocyte % (Auto) 1 % Neutrophils (%) (Auto) 65 42-75 % Lymphocytes (%) (Auto) 22 12-44 % Monocytes (%) (Auto) 8 0-12 % Eosinophils (%) (Auto) 4 0-10 % Basophils (%) (Auto) 1 0-10 % Neutrophils # (Auto) 2.2 1.8-7.8 X 10^3 Lymphocytes # (Auto) 0.8 L 1.0-4.0 X 10^3 Monocytes # (Auto) 0.3 0.0-1.0 X 10^3 Eosinophils # (Auto) 0.1 0.0-0.3 10^3/uL Basophils # (Auto) 0.0 0.0-0.1 10^3/uL Immature Granulocyte # (Auto) 0.0 0.0-0.1 10^3/uL Sodium Level 138 135-145 MMOL/L Potassium Level 4.4 3.6-5.0 MMOL/L Chloride Level 108 H 98-107 MMOL/L Carbon Dioxide Level 18 L 21-32 MMOL/L Anion Gap 12 5-14 MMOL/L Blood Urea Nitrogen 18 7-18 MG/DL Creatinine 1.47 H 0.60-1.30 MG/DL Estimat Glomerular Filtration Rate 35 BUN/Creatinine Ratio 12 Glucose Level 241 H 70-105 MG/DL Calcium Level 8.2 L 8.5-10.1 MG/DL Corrected Calcium 8.8 8.5-10.1 MG/DL Total Bilirubin 0.2 0.1-1.0 MG/DL Aspartate Amino Transf (AST/SGOT) 11 5-34 U/L Alanine Aminotransferase (ALT/SGPT) 5 0-55 U/L Alkaline Phosphatase 87 40-136 U/L Total Protein 5.7 L 6.4-8.2 GM/DL Albumin 3.3 3.2-4.5 GM/DL My Orders Orders - CARLOSVENSTJUNE AMEZCUA DO Urinalysis (10/19/20 22:03) Cbc With Automated Diff (10/19/20 22:03) Comprehensive Metabolic Panel (10/19/20 22:03) Manual Differential (10/19/20 22:06) Vital Signs/I&O 10/19/20 10/19/20 22:02 22:34 Temp 36.7 36.7 Pulse 85 85 Resp 16 16 B/P (MAP) 234/90 (138) 185/59 (101) Pulse Ox 100 100 O2 Delivery Room Air Capillary Refill : Progress Note : Progress Note After reviewing patient's critical lab values of hemoglobin =4.5/hematocrit= 18, asked patient if she is on a blood thinner and she does admit she takes Xarelto for clotting disorder she had years ago. Also asked history of anemia or any GI bleeding and she denies any dark stools or bloody stools or melenic stools. She does state that she had a blood transfusion a few years ago and was told she had bleeding from a peptic ulcer. She had a normal colonoscopy at the same time, this was done at [facility]. Departure Communication (Admissions) Time/Spoke to Admitting Phy: 22:40 Spoke to Radha regarding patient's benign presentation, concern of high blood pressure then unexpected critical low hemoglobin hematocrit. Except admission for blood transfusion. Not giving blood here in [place] due to limited supplies and patient not actively bleeding and otherwise stable. Order written for type and cross of 2 units in the transfusion on arrival in [place]. Impression Primary Impression: Symptomatic anemia Additional Impression: Hypertension Qualified Codes: I10 - Essential (primary) hypertension Disposition: 30 STILL A PATIENT Condition: Stable/Unchanged Admissions Decision to Admit Reason: Admit from ER (General) Decision to Admit/Date: Oct 19, 2020 Time/Decision to Admit Time: 22:40 Departure-Patient Inst. Add. Discharge Instructions: follow up with your PCP in 1 week for re-evaluation of your Bllod Pressure JUNE BERMEO DO Oct 19, 2020 22:06
[2020-10-19 22:26] LABS: BASOPHILS % (AUTO) 1 % (0-10); EOSINOPHILS % (AUTO) 4 % (0-10); LYMPHOCYTES % (AUTO) 22 % (12-44); MEAN CORPUSCULAR HEMOGLOBIN 17 pg (25-34); MEAN CORPUSCULAR HGB CONC 26 g/dL (32-36); MEAN CORPUSCULAR VOLUME 65 fL (80-99); MEAN PLATELET VOLUME 11.1 fL (9.0-12.2); MONOCYTES % (AUTO) 8 % (0-12); NEUTROPHILS % (AUTO) 65 % (42-75); PLATELET COUNT 225 10^3/uL (130-400); WHITE BLOOD COUNT 3.4 10^3/uL (4.3-11.0)
[2020-10-19 22:27] LABS: EOSINOPHILS # (AUTO) 0.1 10^3/uL (0.0-0.3); LYMPHOCYTES # (AUTO) 0.8 X 10^3 (1.0-4.0); MONOCYTES # (AUTO) 0.3 X 10^3 (0.0-1.0); NEUTROPHILS # (AUTO) 2.2 X 10^3 (1.8-7.8)
[2020-10-19 22:29] LABS: HEMATOCRIT 18 % (35-52); HEMOGLOBIN 4.5 g/dL (11.5-16.0)
[2020-10-19 22:37] LABS: CREATININE SERUM 1.47 MG/DL (0.60-1.30); POTASSIUM 4.4 MMOL/L (3.6-5.0)
[2020-10-19 22:38] LABS: ALBUMIN 3.3 GM/DL (3.2-4.5); BILIRUBIN,TOTAL 0.2 MG/DL (0.1-1.0); CALCIUM 8.2 MG/DL (8.5-10.1); TOTAL PROTEIN 5.7 GM/DL (6.4-8.2)
[2020-10-19 22:54] LABS: ATYPICAL LYMPHOCYTES 10 %; BAND NEUTROPHILS 1 %; BASOPHILS % (MANUAL) 1 %; BLAST CELLS 1 %; EOSINOPHILS % (MANUAL) 3 %; LYMPHOCYTES % (MANUAL) 14 %; MONOCYTES % (MANUAL) 9 %; NEUTROPHILS % (MANUAL) 61 %
[2020-10-19 22:55] LABS: HYPOCHROMASIA MARKED; POLYCHROMASIA MODERATE; SMUDGE CELLS SLIGHT
[2020-10-19 22:56] LABS: ANISOCYTOSIS MODERATE; BURR CELLS SLIGHT; ELLIPT/OVALOCYTES MODERATE; MICROCYTOSIS SLIGHT; POIKILOCYTOSIS MODERATE; TOXIC GRANULATION/VACUOLAZATIO 1+
[2020-10-19 22:59] LABS: SCHISTOCYTES SLIGHT
[2020-10-19 23:04] LABS: BILIRUBIN,URINE NEGATIVE (NEGATIVE); CLARITY,URINE CLOUDY; COLOR,URINE PALE YELLOW; GLUCOSE, URINE (UA) 1+ (NEGATIVE); KETONES,URINE NEGATIVE (NEGATIVE); LEUKOCYTE ESTERASE ,URINE 1+ (NEGATIVE); NITRITE,URINE NEGATIVE (NEGATIVE); PROTEIN,URINE NEGATIVE (NEGATIVE)
[2020-10-19 23:05] LABS: BACTERIA,URINE NEGATIVE /HPF; RENAL EPITHELIAL CELLS,URINE 0-2 /HPF; SQUAMOUS EPITHELIAL CELL,UR 0-2 /HPF
[2020-10-20] VITALS (13 sets, daily range): BP systolic 172–222; BP diastolic 70–99
[2020-10-20] MEDS ORDERED: NS IV 500 ML 500 ML IV SCH (00:30)
[2020-10-20] MEDS ORDERED: CATHETER FLUSH 10 ML SYR IV PRN (01:00)
[2020-10-20] MEDS: CATHETER FLUSH 10 ML SYR IV SCH ×3 (06:09→22:26)
[2020-10-20 10:53] LABS: HEMOGLOBIN 7.8 g/dL (11.5-16.0)
[2020-10-20] MEDS ORDERED: DIPH1TAB PO (11:12)
[2020-10-20] MEDS ORDERED: DONE10TA41 PO (11:12)
[2020-10-20] MEDS ORDERED: NITR100C10 PO (11:12)
[2020-10-20] MEDS ORDERED: AMLO2.5T4 PO (11:12)
[2020-10-20] MEDS ORDERED: INSU100I10 SQ (11:12)
[2020-10-20] MEDS ORDERED: ACET-2267 PO (11:12)
[2020-10-20] MEDS ORDERED: ALPR0.254 PO (11:12)
[2020-10-20] MEDS ORDERED: BUPR150T14 PO (11:12)
[2020-10-20] MEDS ORDERED: INSU100I23 SQ ×4 (11:12)
[2020-10-20] MEDS ORDERED: RIVA20TA PO (11:12)
[2020-10-20] MEDS ORDERED: amLODIPine 5 MG (NORVASC) TAB PO ONE (11:45)
--- NOTE | 2020-10-20 12:16 | History & Physical-Hospitalist ---
History of Present Illness HPI/Chief Complaint CC: Severely low symptomatic anemia HPI: This is a 70yoWF clinic Pt of Dr. Hall who presented with severe fatigue found to have Hgb of 4.1, given two units of blood, now Hgb of 7.8. Hemocult stools are positive. Elevated BP will require Amlodipine addition of [address] Hall will see the Pt. patient will remain n.p.o. and possibly perform EGD tomorrow. Xarelto is being held. Source: patient Exam Limitations: no limitations Date Seen 10/20/20 Time Seen by a Provider: 09:30 Attending Physician Jenny Alva DO PCP Rupali Smith Aprn Referring Physician Date of Admission Oct 19, 2020 at 23:46 Home Medications & Allergies Home Medications Reviewed patient Home Medication Reconciliation performed by pharmacy medication reconciliations fiscal technician and/or nursing. Patients Allergies have been reviewed. Allergies Allergies Coded Allergies Penicillins (Verified Allergy, Intermediate, HIVES, 12/17/19) hydrocodone (Verified Allergy, Mild, VOMITING, 12/17/19) Past Yupfuwr-Nzyait-Owbyto Hx Patient Social History Marrital Status: single Employed/Student: retired Tobacco Use?: No Smoking Status: Former Smoker Smokeless Tobacco Frequency: Never a User Use of E-Cig and/or Vaping dev: No Substance use?: No Alcohol Use?: No Pt feels they are or have been: No Immunizations Up To Date Date of Influenza Vaccine: Dec 03, 2019 First/Initial COVID19 Vaccinat: mar 2020 Second COVID19 Vaccination Zackery: apr 2020 Tetanus Booster (TDap): Unknown Hepatitis A: No Hepatitis B: No Date of Pneumonia Vaccine: Dec 15, 2017 Seasonal Allergies Seasonal Allergies: No Current Status status: No status: No Advance Directives: No Communicates: Verbally Primary Language: [place] Preferred Spoken Language: [place] Is interpretation needed?: No Sensory deficits: Vision impairment Implanted or Applied Medical D: None Past Medical History Surgeries: Bladder Surgery, Section, Gallbladder, Hysterectomy Currently Using CPAP: No Currently Using BIPAP: No Atrial Fibrillation, Deep Vein Thrombosis, Hypertension 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, Stroke 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 Sexually Transmitted Disease: No HIV/AIDS: No Bladder Infection, UTI-Chronic Gastroesophageal Reflux Arthritis, Fractures Diabetes, Insulin dep Loss of Vision: Denies Hearing Impairment: Denies Cervical Did You Recieve Any Treatments: Yes What Type of Treatment Did You: Radiation, Surgical Intervention Depression Blood Disorders: 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) Adverse Reaction/Blood Tranf: No (HAS HAD BLOOD WITH NO REACTION) Family Medical History Asthma 19 FATHER Diabetes mellitus 19 FATHER 19 MOTHER Hypertension 19 FATHER 19 MOTHER No Pertinent Family Hx, Hypertension Review of Systems Constitutional: see HPI, dizziness, malaise, weakness Physical Exam Physical Exam Vital Signs Vital Signs - First Documented 10/19/20 22:02 Temp 36.7 Pulse 85 Resp 16 B/P (MAP) 234/90 (138) Pulse Ox 100 O2 Delivery Room Air Capillary Refill : Less Than 3 Seconds Height, Weight, BMI Height: 5'2.00" Weight: 168lbs. 0.0oz. 76.512642vx; 35.52 BMI Method:Stated General Appearance: No Apparent Distress, Chronically ill, Obese HEENT: PERRL/EOMI, Normal ENT Inspection, Pharynx Normal Neck: Full Range of Motion Respiratory: Chest Non Tender, Lungs Clear, Normal Breath Sounds, No Accessory Muscle Use, No Respiratory Distress Cardiovascular: No Edema, No Gallop, No JVD, No Murmur, Normal Peripheral Pulses, Irregularly Irregular, Tachycardia Neurologic/Psychiatric: Alert, Oriented x3 Results Results/Procedures Labs Laboratory Tests 10/19/20 22:06 10/20/20 10:40 Patient resulted labs reviewed. Assessment/Plan Admission Diagnosis Assessment: Symptomatic anemia hemoglobin 4.1 Status post 2 units of transfusions History of GI bleed A. fib History of DVT Oral anticoagulation Hypertension Plan: Supportive care Monitor hemoglobin Appreciate Dr. Isabel RAMEY tomorrow Admission Status: Inpatient Order (span 2 midnights) Reason for Inpatient Admission: Severe anemia JENNY ALVA DO Oct 20, 2020 12:16
[2020-10-20] MEDS ORDERED: ACETAMINOPHEN 500 MG TAB (TYLENOL) PO PRN (12:30)
[2020-10-20] MEDS ORDERED: ALPRAZolam 0.25 MG (XANAX) TAB PO PRN (12:30)
[2020-10-20] MEDS ORDERED: RX-DIPHENO./ATROP. 2.5/0.25 MG (LOMOTIL) TAB PPK#4 PO PRN (12:30)
[2020-10-20] MEDS ORDERED: DIPHENOXYLATE/ATROPINE 2.5MG/0.025MG (LOMOTIL) TAB PO PRN (13:00)
[2020-10-20] MEDS: SUCRALFATE 1 GM (CARAFATE) TAB PO SCH ×2 (16:10→20:57)
[2020-10-20] MEDS: COLESTIPOL 1 GM (COLESTID) TAB PO SCH (16:10)
[2020-10-20] MEDS ORDERED: NON-FORMULARY MEDICATION 1 EA EA (Insulin Lispro (Humalog Kwikpen) 8 UNIT) SQ SCH (17:00)
[2020-10-20] MEDS ORDERED: inSUlin ASPART (NovoLOG) 1 UNIT/0.01 ML (CHARGE PER UNIT) SC SCH (17:00)
[2020-10-20] MEDS ORDERED: RIVAROXABAN 20 MG TABLET (XARELTO) PO SCH (17:00)
[2020-10-20] MEDS ORDERED: PANTOPRAZOLE 40 MG (PROTONIX) TAB PO ONE (17:13)
[2020-10-20] MEDS: PANTOPRAZOLE 40 MG (PROTONIX) TAB PO SCH (17:15)
[2020-10-20] MEDS ORDERED: DEXTROSE 50% 50 ML (IMS) SYR ONE (20:20)
[2020-10-20] MEDS ORDERED: DEXTROSE 50% 50 ML (IMS) SYR IV NR (20:30)
[2020-10-20] MEDS ORDERED: D5 1/2 NS 1000 ML IV SOLUTION 1,000 ML IV SCH (20:30)
[2020-10-20] MEDS ORDERED: D5 NS 1000 ML IV SOLUTION 1,000 ML IV ONE (20:33)
[2020-10-20] MEDS: D5 NS 1000 ML IV SOLUTION 1,000 ML IV SCH (20:54)
[2020-10-20] MEDS ORDERED: NON-FORMULARY MEDICATION 1 EA EA (Carvedilol 25 MG) PO SCH (21:00)
[2020-10-20] MEDS ORDERED: GABAPENTIN 100 MG (NEURONTIN) CAP PO SCH (21:00)
[2020-10-20] MEDS ORDERED: AtorvaSTATin TABLET 10 MG TABLET PO SCH (21:00)
[2020-10-20] MEDS ORDERED: DONEPEZIL 10 MG (ARICEPT) TAB PO SCH (21:00)
[2020-10-20] MEDS ORDERED: cloNIDine 0.1 MG (CATAPRES) TAB PO PRN (21:00)
[2020-10-21] VITALS: BP 168/59
[2020-10-21 04:39] VITALS: BP 193/74
[2020-10-21 05:57] LABS: BASOPHILS % (AUTO) 1 % (0-10); EOSINOPHILS # (AUTO) 0.1 10^3/uL (0.0-0.3); EOSINOPHILS % (AUTO) 3 % (0-10); HEMATOCRIT 27 % (35-52); HEMOGLOBIN 7.9 g/dL (11.5-16.0); LYMPHOCYTES # (AUTO) 0.8 10^3/uL (1.0-4.0); LYMPHOCYTES % (AUTO) 28 % (12-44); MEAN CORPUSCULAR HEMOGLOBIN 22 pg (25-34); MEAN CORPUSCULAR HGB CONC 29 g/dL (32-36); MEAN CORPUSCULAR VOLUME 75 fL (80-99); MONOCYTES # (AUTO) 0.3 10^3/uL (0.0-1.0); MONOCYTES % (AUTO) 11 % (0-12); NEUTROPHILS # (AUTO) 1.7 10^3/uL (1.8-7.8); NEUTROPHILS % (AUTO) 56 % (42-75); PLATELET COUNT 192 10^3/uL (130-400)
[2020-10-21 06:11] LABS: ALBUMIN 3.2 GM/DL (3.2-4.5); POTASSIUM 3.8 MMOL/L (3.6-5.0)
[2020-10-21 06:12] LABS: CALCIUM 8.3 MG/DL (8.5-10.1)
[2020-10-21 06:13] LABS: TOTAL PROTEIN 5.8 GM/DL (6.4-8.2)
[2020-10-21 06:15] LABS: BILIRUBIN,TOTAL 1.3 MG/DL (0.1-1.0)
[2020-10-21 06:17] LABS: CREATININE SERUM 1.05 MG/DL (0.60-1.30)
[2020-10-21] MEDS: SUCRALFATE 1 GM (CARAFATE) TAB PO SCH ×3 (06:31→16:28)
[2020-10-21] MEDS: CATHETER FLUSH 10 ML SYR IV SCH ×2 (06:32→14:27)
[2020-10-21] MEDS ORDERED: MULTIVIT W/MINERALS TAB (THERAGRAN M) PO SCH (07:00)
[2020-10-21 08:00] VITALS: BP 158/76
[2020-10-21] MEDS ORDERED: NITROFURANTOIN 100 MG (MACROBID) CAPSULE PO SCH (08:00)
[2020-10-21] MEDS ORDERED: NON-FORMULARY MEDICATION 1 EA EA (Insulin Glargine,Hum.rec.anlog (Lantus Solostar) 20 UNIT SQ SCH (08:00)
[2020-10-21] MEDS ORDERED: INSULIN LISPRO 3 UNIT SQ SCH (08:00)
[2020-10-21] MEDS ORDERED: inSUlin ASPART (NovoLOG) 1 UNIT/0.01 ML (CHARGE PER UNIT) SC SCH ×2 (08:00→12:00)
[2020-10-21] MEDS: COLESTIPOL 1 GM (COLESTID) TAB PO SCH ×3 (08:43→16:28)
[2020-10-21] MEDS: PANTOPRAZOLE 40 MG (PROTONIX) TAB PO SCH (08:44)
[2020-10-21] MEDS ORDERED: NON-FORMULARY MEDICATION 1 EA EA (Multivitamin 1 EACH) PO SCH (09:00)
[2020-10-21] MEDS ORDERED: LOSARTAN 50 MG (COZAAR) TAB PO SCH (09:00)
[2020-10-21] MEDS ORDERED: amLODIPine 2.5MG (NORVASC) TAB PO SCH ×2 (09:00)
[2020-10-21] MEDS ORDERED: buPROPion SR 150 MG (WELLBUTRIN SR) TAB PO SCH (09:00)
[2020-10-21] MEDS ORDERED: PANTOPRAZOLE 40 MG (PROTONIX) TAB PO SCH (09:00)
[2020-10-21] MEDS ORDERED: RX-NITROFURANTOIN 100 MG (MACROBID) CAP PPK#2 PO SCH (09:00)
[2020-10-21 12:00] VITALS: BP 135/75
[2020-10-21] MEDS ORDERED: NON-FORMULARY MEDICATION 1 EA EA (Insulin Lispro (Humalog Kwikpen) 5 UNIT) SQ SCH (12:00)
[2020-10-21] MEDS ORDERED: AMLO2.5T4 PO (12:07)
--- NOTE | 2020-10-21 12:07 | Discharge Summary ---
Discharge Summary Hospital Course Was the Problem List Reviewed?: Yes Problems/Dx: (1) Symptomatic anemia Status: Acute Hospital Course Date of Admission: Oct 19, 2020 at 23:46 Admission Diagnosis : Family Physician/Provider: Rupali Smith Aprn Date of Discharge: 10/21/20 Discharge Diagnosis: Symptomatic anemia hemoglobin 4.1, acute on chronic GI blee d, atrial fibrillation Hospital Course: Hospital course: Pt had an uneventful hospital course after she was admitted for symptomatic anemia with Hgb of 4.1, she was given two units of blood, Hgb remains stable at 7.9, Xarelto was stopped and Dr. Hall was consulted, he will see her as an outpatient and Xarelto will be held until further notice. Labs and Pending Lab Test: Laboratory Tests 10/21/20 05:40: White Blood Count 3.0L, Red Blood Count 3.64L, Hemoglobin 7.9L, Hematocrit 27L, Mean Corpuscular Volume 75L, Mean Corpuscular Hemoglobin 22L, Mean Corpuscular Hemoglobin Concent 29L, Red Cell Distribution Width 26.4H, Platelet Count 192, Mean Platelet Volume 11.0, Immature Granulocyte % (Auto) 1, Neutrophils (%) (Auto) 56, Lymphocytes (%) (Auto) 28, Monocytes (%) (Auto) 11, Eosinophils (%) (Auto) 3, Basophils (%) (Auto) 1, Neutrophils # (Auto) 1.7L, Lymphocytes # (Auto) 0.8L, Monocytes # (Auto) 0.3, Eosinophils # (Auto) 0.1, Basophils # (Auto) 0.0, Immature Granulocyte # (Auto) 0.0, Sodium Level 140, Potassium Level 3.8, Chloride Level 112H, Carbon Dioxide Level 20L, Anion Gap 8, Blood Urea Nit rogen 10, Creatinine 1.05, Estimat Glomerular Filtration Rate 52, BUN/Creatinine Ratio 10, Glucose Level 195H, Calcium Level 8.3L, Corrected Calcium 8.9, Total Bilirubin 1.3H, Aspartate Amino Transf (AST/SGOT) 11, Alanine Aminotransferase (ALT/SGPT) 12, Alkaline Phosphatase 70, Total Protein 5.8L, Albumin 3.2 Home Meds Active Amlodipine Besylate 2.5 Mg Tablet 5 Mg PO BID Reported ALPRAZolam 0.25 Mg Tablet 0.25 Mg PO Q6H PRN Lomotil 2.5-0.025 mg Tablet (Diphenoxylate HCl/Atropine) 1 Each Tablet 1-2 Each PO Q6H PRN Tylenol Extra Strength (Acetaminophen) 500 Mg Tablet 500 Mg PO Q4H PRN Xarelto (Rivaroxaban) 20 Mg Tablet 20 Mg PO 1700 Bupropion HCl Sr (Bupropion HCl) 150 Mg Tablet.er 150 Mg PO DAILY Nitrofurantoin Blanco-Mcr 100 mg (Nitrofurantoin Monohyd/M-Cryst) 100 Mg Capsule 100 Mg PO DAILY Donepezil HCl 10 Mg Tablet 10 Mg PO HS Amlodipine Besylate 2.5 Mg Tablet 2.5 Mg PO DAILY Lantus Solostar (Insulin Glargine,Hum.rec.anlog) 100 Unit/1 Ml Insuln.pen 20 Units SQ 0800 Humalog Kwikpen (Insulin Lispro) 100 Unit/1 Ml Insuln.pen Unit SQ TIDWM USES STANDING ORDERS AT MEALS WELL THE FOLLOWING SLIDING SCALE: 200-260=1 UNIT 261-320=2 UNITS OVER 320=3 UNITS Humalog Kwikpen (Insulin Lispro) 100 Unit/1 Ml Insuln.pen 8 Unit SQ 1700 TAKES BEFORE SUPPER Humalog Kwikpen (Insulin Lispro) 100 Unit/1 Ml Insuln.pen 5 Unit SQ 1200 TAKES BEFORE LUNCH Humalog Kwikpen (Insulin Lispro) 100 Unit/1 Ml Insuln.pen 3 Units SQ 0800 TAKES BEFORE BREAKFAST Multivitamin 1 Each Tablet 1 Each PO DAILY Colestipol HCl 1 Gm Tablet 1 Gm PO 0800,1200,1700 Carafate (Sucralfate) 1 Gm Tablet 1 Gm PO ACHS Gabapentin 100 Mg Capsule 100 Mg PO HS Losartan Potassium 50 Mg Tablet 50 Mg PO DAILY Atorvastatin Calcium 10 Mg Tablet 10 Mg PO HS Carvedilol 25 Mg Tablet 25 Mg PO BID Pantoprazole Sodium 40 Mg Tablet.dr 40 Mg PO DAILY Assessment/Pt Instructions [facility] 1 week Discharge Planning: <30 minutes discharge planning Discharge Instructions Discharge Diet: No Restrictions Activity as Tolerated: Yes Discharge Physical Examination Vital Signs Vital Signs Date Time Temp Pulse Resp B/P (MAP) Pulse Ox O2 Delivery O2 Flow Rate FiO2 10/21/20 08:00 100 Room Air 10/21/20 08:00 36.8 54 20 158/76 (103) General Appearance: No Apparent Distress, WD/WN, Chronically ill, Obese Respiratory: Lungs Clear Cardiovascular: Irregularly Irregular Neurologic/Psychiatric: Alert, Oriented x3 Allergies: Coded Allergies: Penicillins (Verified Allergy, Intermediate, HIVES, 12/17/19) hydrocodone (Verified Allergy, Mild, VOMITING, 12/17/19) Discharge Summary Date of Admission Oct 19, 2020 at 23:46 Date of Discharge Admission Diagnosis Assessment: Symptomatic anemia hemoglobin 4.1 Status post 2 units of transfusions History of GI bleed A. fib History of DVT Oral anticoagulation Hypertension Plan: Supportive care Monitor hemoglobin Appreciate Dr. Isabel RAMEY tomorrow PERICO ALVA DO Oct 21, 2020 12:07
[2020-10-21] MEDS: D5 NS 1000 ML IV SOLUTION 1,000 ML IV SCH (12:48)
== END 2020-10-21 16:58 | disposition home or self-care (01) | DRG 812 ==
LOC: EDUNIT# 22:02 → ER FS 22:03 → 4TH 23:46
PROVIDERS: ADMIT Internal Medicine; ATTEND Internal Medicine
DX: D64.9 Anemia, unspecified (principal); K92.2 Gastrointestinal hemorrhage, unspecified; I48.91 Unspecified atrial fibrillation; I10 Essential (primary) hypertension; K21.9 Gastro-esophageal reflux disease without esophagitis; M19.90 Unspecified osteoarthritis, unspecified site; E11.9 Type 2 diabetes mellitus without complications; F32.9 Major depressive disorder, single episode, unspecified; F03.90 Unspecified dementia, unspecified severity, without behavioral disturbance, psychotic disturbance, mood disturbance, and anxiety; Z79.4 Long term (current) use of insulin; Z79.899 Other long term (current) drug therapy; Z87.891 Personal history of nicotine dependence; Z86.718 Personal history of other venous thrombosis and embolism; Z86.73 Personal history of transient ischemic attack (TIA), and cerebral infarction without residual deficits; Z92.3 Personal history of irradiation
CPT/HCPCS: 36415; 80053; 81000; 82274; 85007; 85014; 85018; 85025; 85027; 86850; 86900; 86901; 86920; 87088; 93005

== ENCOUNTER 2020-11-05 08:50 | Outpatient (CLI) | payer MEDICARE, MEDICAID ==
[~2020-11-05] VITALS: Ht 157.5 cm; Wt 78.6 kg
[~2020-11-05 08:50] MED LIST changes: +ALPR0.254 PO; +BUPR150T14 PO; +DIPH1TAB PO; +DONE10TA41 PO; +INSU100I10 SQ; +INSU100I23 SQ; +NITR100C10 PO
== END 2020-11-08 08:59 ==
LOC: PREOP 08:50
PROVIDERS: ATTEND Surgery
DX: Z01.818 Encounter for other preprocedural examination (principal)

== ENCOUNTER 2020-11-11 07:34 | Day surgery (SDC) | payer MEDICARE, MEDICAID ==
[~2020-11-11] VITALS: Ht 157.5 cm; Wt 78.6 kg
[2020-11-11] MEDS ORDERED: LACTATED RINGERS 1,000 ML IV STA (08:21)
[2020-11-11] MEDS ORDERED: HURRICAINE EXT TUBE (BENZOCAINE) XX PRN (08:30)
[2020-11-11] MEDS ORDERED: LACTATED RINGERS 1,000 ML IV ONE (08:33)
[2020-11-11 08:46] VITALS: BP 133/65
[2020-11-11] MEDS ORDERED: PROPOFOL INJECTION 50 ML IV ONE (09:19)
[2020-11-11] MEDS ORDERED: MIDAZOLAM 2 MG/2 ML (VERSED) VIAL ONE (09:19)
--- NOTE | 2020-11-11 10:35 | Progress Note-Pre Operative ---
Pre-Operative Progress Note H&P Reviewed The H&P was reviewed, patient examined and no changes noted. Time Seen by Provider: 10:32 Date H&P Reviewed: Nov 11, 2020 Time H&P Reviewed: 10:32 Pre-Operative Diagnosis: hx of gastric ulcers, anemia JAREN CHAVEZ DO Nov 11, 2020 10:35
--- NOTE | 2020-11-11 10:54 | Progress Note-Post Operative ---
Post-Operative Progess Note Surgeon (s)/Bakery Supervisor (s) Surgeon JAREN CHAVEZ DO Bakery Supervisor: none Pre-Operative Diagnosis hx of gastric ulcers, anemia Post-Operative Diagnosis Duodenitis Hiatal hernia Procedure & Operative Findings Date of Procedure 11/11/20 Procedure Performed/Findings EGD with bx PROCEDURE NOTE: After informed consent was obtained, the patient was brought to the endoscopy suite, placed in bed in left lateral decubitus position. She was administered IV sedation by the VP DESIGN who then monitored vitals the entire time, heart rate, blood pressure and pulse ox and the scope was inserted down the mouth through the esophagus into the stomach. On the way down, noted some mild esophagitis, took a picture, pushed into the stomach, pushed past the antrum into the duodenum. Duodenum had multiple small polyps, no real erythema and elected to do a biopsy in the duodenum. Pulled back and took a picture of the antrum, then retroflexed the scope and saw a small hiatal hernia. Took a picture of this and then pulled the scope into the GE junction, took another picture of the GE junction. Pushed the scope back into the stomach, suctioned all the air out of the stomach. At this point pulled the scope up the esophagus and out the mouth. The patient tolerated the procedure, and she recovered in endoscopy suite. Anesthesia Type IV sedation by VP DESIGN Estimated Blood Loss Estimated blood loss (mL): scant Specimens/Packing Specimens Removed duodenal bx JAREN CHAVEZ DO Nov 11, 2020 10:54
[2020-11-11 10:55] VITALS: BP 133/63
--- NOTE | 2020-11-11 10:55 | Endoscopy Discharge Instruct ---
Endo Procedure/Findings Findings 1.: Hiatal Hernia 2.: Other Findings (esophagitis) 3.: Other Findings (duodenitis) Discharge Instructions - Activity: You might feel a little sleepy until tomorrow. This is due to the medicine you received to relax you. Until tomorrow, you should: NOT drive a car, operate machinery or power tools. NOT drink any alcoholic beverages. NOT make any important decisions or sign importortant papers. Do not return to work until tomorrow, unless otherwise instructed. Resume previous activities tomorrow. Diet: Start by taking liquids. If you tolerate liquids, advance to solid food. 1.: EGD in 3 years Notify Physician - If you experience excessive bleeding, unusual abdominal pain, fever, or chest pain, contact your doctor immediately. JAREN CHAVEZ DO Nov 11, 2020 10:55
[2020-11-11 11:00] VITALS: BP 165/67
[2020-11-11 11:30] VITALS: BP 184/64
[2020-11-11 11:40] VITALS: BP 184/64
--- NOTE | 2020-11-11 11:44 | Anesthesia-General Post-Op ---
MAC Patient Condition Mental Status/LOC: Same as Preop Cardiovascular: Satisfactory Nausea/Vomiting: Absent Respiratory: Satisfactory Pain: Controlled Complications: Absent Post Op Complications Complications None Follow Up Care/Instructions Patient Instructions None needed. Anesthesiology Discharge Order Discharge Order Patient is doing well, no complaints, stable vital signs, no apparent adverse anesthesia problems. No complications reported per nursing. NISHI NOVA CRNA Nov 11, 2020 11:44
== END 2020-11-11 11:50 | disposition home or self-care (01) ==
LOC: ENDO 07:34
PROVIDERS: ATTEND Surgery
DX: K29.80 Duodenitis without bleeding (principal); K21.00 Gastro-esophageal reflux disease with esophagitis, without bleeding; K31.7 Polyp of stomach and duodenum; K44.9 Diaphragmatic hernia without obstruction or gangrene; K25.9 Gastric ulcer, unspecified as acute or chronic, without hemorrhage or perforation; D50.9 Iron deficiency anemia, unspecified; M19.90 Unspecified osteoarthritis, unspecified site; E11.9 Type 2 diabetes mellitus without complications; I10 Essential (primary) hypertension; I48.91 Unspecified atrial fibrillation; F03.90 Unspecified dementia, unspecified severity, without behavioral disturbance, psychotic disturbance, mood disturbance, and anxiety; Z79.899 Other long term (current) drug therapy; Z79.4 Long term (current) use of insulin; Z79.891 Long term (current) use of opiate analgesic; Z90.710 Acquired absence of both cervix and uterus
CPT/HCPCS: 88305

== ENCOUNTER → 2021-11-29 | Outpatient (CLI) | payer MEDICARE, MEDICAID ==
[~2021-11-29] MED LIST changes: +BUPR-105 PO; -BUPR150T14 PO; +FLUC100T10 PO; -FLUC100T6 PO
[2021-11-29 11:52] LABS: BASOPHILS % (AUTO) 1 % (0-10); EOSINOPHILS # (AUTO) 0.4 10^3/uL (0.0-0.3); EOSINOPHILS % (AUTO) 6 % (0-10); HEMATOCRIT 39 % (35-52); HEMOGLOBIN 12.5 g/dL (11.5-16.0); LYMPHOCYTES # (AUTO) 1.2 10^3/uL (1.0-4.0); LYMPHOCYTES % (AUTO) 19 % (12-44); MEAN CORPUSCULAR HEMOGLOBIN 29 pg (25-34); MEAN CORPUSCULAR HGB CONC 32 g/dL (32-36); MEAN CORPUSCULAR VOLUME 88 fL (80-99); MONOCYTES # (AUTO) 0.4 10^3/uL (0.0-1.0); MONOCYTES % (AUTO) 7 % (0-12); NEUTROPHILS # (AUTO) 4.4 10^3/uL (1.8-7.8); NEUTROPHILS % (AUTO) 68 % (42-75); PLATELET COUNT 260 10^3/uL (130-400); WHITE BLOOD COUNT 6.4 10^3/uL (4.3-11.0)
[2021-11-29 12:43] LABS: CREATININE SERUM 1.83 MG/DL (0.60-1.30); POTASSIUM 4.4 MMOL/L (3.6-5.0)
[2021-11-29 12:44] LABS: ALBUMIN 3.6 GM/DL (3.2-4.5); BILIRUBIN,TOTAL 0.4 MG/DL (0.1-1.0); CALCIUM 8.9 MG/DL (8.5-10.1); TOTAL PROTEIN 6.9 GM/DL (6.4-8.2)
== END ==
LOC: LAB FS 11:05
PROVIDERS: ATTEND Nurse Practitioner Family
DX: R42 Dizziness and giddiness (principal); R30.0 Dysuria
CPT/HCPCS: 36415; 80053; 85025

== ENCOUNTER → 2022-07-25 | Outpatient (CLI) | payer MEDICARE, MEDICAID ==
--- NOTE | 2022-07-25 18:45 | Diagnostic Imaging Report ---
IndicATION: Left knee pain. AP, lateral, oblique and sunrise views of the left knee are obtained. There is generalized demineralization. There is marked medial joint space narrowing with osteophyte formation. There is moderate lateral joint space narrowing and patellofemoral spurring. There is no joint effusion. There are vascular calcifications. IMPRESSION: Degenerative changes of the left knee most prominent in the medial compartment with no acute abnormality. Extensive vascular calcifications are noted. Dictated by: Dictated on workstation # [id number]
== END ==
LOC: RAD FS 10:22
PROVIDERS: ATTEND Orthopaedic Surgery
DX: M17.12 Unilateral primary osteoarthritis, left knee (principal)
CPT/HCPCS: 73564

== ENCOUNTER 2022-10-11 20:02 | Emergency (ER) | payer MEDICARE, MEDICAID ==
[~2022-10-11] VITALS: Ht 157.4 cm; Wt 85.4 kg
[2022-10-11 20:36] LABS: BILIRUBIN,URINE NEGATIVE (NEGATIVE); CLARITY,URINE CLEAR; COLOR,URINE YELLOW; GLUCOSE, URINE (UA) NEGATIVE (NEGATIVE); KETONES,URINE NEGATIVE (NEGATIVE); LEUKOCYTE ESTERASE ,URINE TRACE (NEGATIVE); NITRITE,URINE POSITIVE (NEGATIVE); PROTEIN,URINE 2+ (NEGATIVE)
[2022-10-11 20:40] LABS: CHLORIDE 107 MMOL/L (98-107); POTASSIUM 5.1 MMOL/L (3.6-5.0); SODIUM 139 MMOL/L (135-145)
[2022-10-11 20:43] LABS: ALKALINE PHOSPHATASE 147 U/L (40-136); BILIRUBIN,TOTAL 0.3 MG/DL (0.1-1.0); BUN/CREATININE RATIO 9; CALCIUM 8.5 MG/DL (8.5-10.1); CARBON DIOXIDE 21 MMOL/L (21-32); GFR ESTIMATED 26; GLUCOSE 169 MG/DL (70-105); MAGNESIUM 1.5 MG/DL (1.6-2.4)
[2022-10-11 20:44] LABS: ALANINE AMINOTRANSFERASE 36 U/L (0-55); ALBUMIN 3.3 GM/DL (3.2-4.5); TOTAL PROTEIN 6.3 GM/DL (6.4-8.2)
[2022-10-11 20:45] LABS: BASOPHILS # (AUTO) 0.1 10^3/uL (0.0-0.1); BASOPHILS % (AUTO) 1 % (0-10); EOSINOPHILS # (AUTO) 0.4 10^3/uL (0.0-0.3); EOSINOPHILS % (AUTO) 5 % (0-10); HEMATOCRIT 35 % (35-52); HEMOGLOBIN 11.1 g/dL (11.5-16.0); LYMPHOCYTES # (AUTO) 1.1 10^3/uL (1.0-4.0); LYMPHOCYTES % (AUTO) 14 % (12-44); MEAN CORPUSCULAR HEMOGLOBIN 29 pg (25-34); MEAN CORPUSCULAR HGB CONC 32 g/dL (32-36); MEAN CORPUSCULAR VOLUME 91 fL (80-99); MEAN PLATELET VOLUME 10.6 fL (9.0-12.2); MONOCYTES # (AUTO) 0.7 10^3/uL (0.0-1.0); MONOCYTES % (AUTO) 9 % (0-12); NEUTROPHILS # (AUTO) 5.5 10^3/uL (1.8-7.8); NEUTROPHILS % (AUTO) 72 % (42-75); PLATELET COUNT 234 10^3/uL (130-400); WHITE BLOOD COUNT 7.7 10^3/uL (4.3-11.0)
[2022-10-11 20:53] LABS: BACTERIA,URINE MODERATE /HPF; SQUAMOUS EPITHELIAL CELL,UR RARE /HPF
[2022-10-11] MEDS ORDERED: cefTRIAXone IV/IM 1,000 MG in NS (IVPB) 50 ML 50 ML IV STA (21:39)
--- NOTE | 2022-10-11 21:40 | ED General ---
General Chief Complaint: Respiratory Problems Stated Complaint: SOA,DIZZY Source of Information: Patient, EMS Exam Limitations: No Limitations History of Present Illness Date Seen by Provider: Oct 11, 2022 Time Seen by Provider: 20:03 Initial Comments This is 72-year-old woman presents to the emergency room via EMS from [facility] with concerns about shortness of air intermittently throughout the day and a general feeling of illness. She has at times felt dizzy and nauseated. Blood sugar for EMS was 67. She received 25 mL of D50 in route with improvement of blood sugar to 167. She also complains of some mild cough and chest congestion. She has had some recent dysuria and incontinence as well. She took Azo for those symptoms. She reports her only medical problem as diabetes. She is afebrile, alert, oriented, and with stable vital signs. Allergies and Home Medications Allergies Coded Allergies: Penicillins (Verified Allergy, Intermediate, HIVES, 12/17/19) hydrocodone (Verified Allergy, Mild, VOMITING, 12/17/19) Patient Home Medication List Home Medication List Reviewed: Yes ALPRAZolam (ALPRAZolam) 0.25 Mg Tablet, 0.25 MG PO Q6H PRN for ANXIETY, (Reported) Entered as Reported by: LUBA SALOMON on 10/20/20 111 Acetaminophen (Tylenol Extra Strength) 500 Mg Tablet, 500 MG PO Q4H PRN for PAIN-MILD (1-4), (Reported) Entered as Reported by: LUBA SALOMON on 10/20/20 1112 Amlodipine Besylate (Amlodipine Besylate) 2.5 Mg Tablet, 5 MG PO BID Prescribed by: PERICO ALVA on 10/21/20 1207 Atorvastatin Calcium (Atorvastatin Calcium) 10 Mg Tablet, 10 MG PO HS, (Reported) Entered as Reported by: CATHI GLOVER on 12/21/14 1133 Bupropion HCl (Bupropion HCl Sr) 150 Mg Tablet.er, 150 MG PO DAILY, (Reported) Entered as Reported by: LUBA SALOMON on 10/20/20 1112 Carvedilol (Carvedilol) 25 Mg Tablet, 25 MG PO BID, (Reported) Entered as Reported by: CATHI GLOVER on 12/21/14 1128 Cephalexin (Cephalexin) 500 Mg Tablet, 500 MG PO BID Prescribed by: CYNDEE DELGADO on 10/11/22 2224 Colestipol HCl (Colestipol HCl) 1 Gm Tablet, 1 GM PO 0800,1200,1700, (Reported) Entered as Reported by: SRIDEVI ARIAS on 12/17/19 1057 Diphenoxylate HCl/Atropine (Lomotil 2.5-0.025 mg Tablet) 1 Each Tablet, 1-2 EACH PO Q6H PRN for DIARRHEA, (Reported) Entered as Reported by: LUBA SALOMON on 10/20/20 111 Donepezil HCl (Donepezil HCl) 10 Mg Tablet, 10 MG PO HS, (Reported) Entered as Reported by: LUBA SALOMON on 10/20/20 111 Gabapentin (Gabapentin) 100 Mg Capsule, 100 MG PO HS, (Reported) Entered as Reported by: SRIDEVI ARIAS on 10/14/18 1455 Insulin Glargine,Hum.rec.anlog (Lantus Solostar) 100 Unit/1 Ml Insuln.pen, 20 UNITS SQ 0800, (Reported) Entered as Reported by: LUBA SALOMON on 10/20/20 111 Insulin Lispro (Humalog Kwikpen) 100 Unit/1 Ml Insuln.pen, 3 UNITS SQ 0800, (Reported) Entered as Reported by: LUBA ASLOMON on 10/20/20 111 Insulin Lispro (Humalog Kwikpen) 100 Unit/1 Ml Insuln.pen, 5 UNIT SQ 1200, (Reported) Entered as Reported by: LUBA SALOMON on 10/20/20 111 Insulin Lispro (Humalog Kwikpen) 100 Unit/1 Ml Insuln.pen, 8 UNIT SQ 1700, (Reported) Entered as Reported by: LUBA SALOMON on 10/20/20 111 Insulin Lispro (Humalog Kwikpen) 100 Unit/1 Ml Insuln.pen, UNIT SQ TIDWM, (Reported) Entered as Reported by: LUBA SALOMON on 10/20/20 111 Losartan Potassium (Losartan Potassium) 50 Mg Tablet, 50 MG PO DAILY, (Reported) Entered as Reported by: LOKI RAMOS on 08/24/17 0930 Multivitamin (Multivitamin) 1 Each Tablet, 1 EACH PO DAILY, (Reported) Entered as Reported by: SRIDEVI ARIAS on 12/17/19 1057 Nitrofurantoin Monohyd/M-Cryst (Nitrofurantoin Beauregard-Mcr 100 mg) 100 Mg Capsule, 100 MG PO DAILY, (Reported) Entered as Reported by: LUBA SALOMON on 10/20/20 1112 Pantoprazole Sodium (Pantoprazole Sodium) 40 Mg Tablet.dr, 40 MG PO DAILY, (Reported) Entered as Reported by: CATHI GLOVER on 12/21/14 1128 Sucralfate (Carafate) 1 Gm Tablet, 1 GM PO ACHS, (Reported) Entered as Reported by: SRIDEVI ARIAS on 12/17/19 1057 Review of Systems Review of Systems Constitutional: see HPI, malaise EENTM: no symptoms reported Respiratory: see HPI Cardiovascular: no symptoms reported Gastrointestinal: see HPI Genitourinary: see HPI : No Musculoskeletal: no symptoms reported Skin: no symptoms reported Psychiatric/Neurological: No Symptoms Reported Hematologic/Lymphatic: No Symptoms Reported Immunological/Allergic: no symptoms reported Past Rvptcwy-Hvtxyj-Yfzxnw Hx Patient Social History Tobacco Use?: No Use of E-Cig and/or Vaping dev: No Substance use?: No Alcohol Use?: No Immunizations Up To Date Tetanus Booster (TDap): Unknown First/Initial COVID19 Vaccinat: mar 2020 Second COVID19 Vaccination Zackery: apr 2020 Third COVID19 Vaccination Date: mar 2020 Seasonal Allergies Seasonal Allergies: No Past Medical History Surgery/Hospitalization HX: pelvic fx with sx, 1975- radical hysterectomy, 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, gallbladder removed-, carotid endarterectomy Rt side Surgeries: Yes Bladder Surgery, Section, Gallbladder, Hysterectomy, Orthopedic, Vascular Surgery (Right CEA) Respiratory: No Currently Using CPAP: No Currently Using BIPAP: No Cardiac: Yes (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) Atrial Fibrillation, Deep Vein Thrombosis, Hypertension Neurological: Yes (1997 ) Dementia, Stroke Reproductive Disorders: No Female Reproductive Disorders: Denies MED PEDS History: Hysterectomy Sexually Transmitted Disease: No HIV/AIDS: No Genitourinary: Yes Bladder Infection, UTI-Chronic Gastrointestinal: Yes Gastroesophageal Reflux Musculoskeletal: Yes (OSTEOPENIA) Arthritis, Fractures Endocrine: Yes Diabetes, Insulin dep HEENT: No (GLASSES, DENTURE (BOTTOM)) Loss of Vision: Denies Hearing Impairment: Denies Cancer: Yes (1976-REMOVED) Cervical Did You Recieve Any Treatments: Yes What Type of Treatment Did You: Radiation, Surgical Intervention Psychosocial: Yes (SITUATION) Depression Integumentary: No Blood Disorders: 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) Adverse Reaction/Blood Tranf: No (HAS HAD BLOOD WITH NO REACTION) Family Medical History Asthma 19 FATHER Diabetes mellitus 19 FATHER 19 MOTHER Hypertension 19 FATHER 19 MOTHER No Pertinent Family Hx, Hypertension Physical Exam Vital Signs Vital Signs - First Documented 10/11/22 20:05 Temp 37.1 Pulse 86 Resp 20 B/P (MAP) 237/77 (130) Pulse Ox 96 O2 Delivery Room Air Capillary Refill : Height, Weight, BMI Height: 5'2.00" Weight: 168lbs. 0.0oz. 76.102001hl; 31.68 BMI Method:Stated General Appearance: No Apparent Distress, WD/WN HEENT: PERRL/EOMI, Normal ENT Inspection, Other (MMM) Neck: Normal Inspection; No JVD Respiratory: Lungs Clear, Normal Breath Sounds, No Accessory Muscle Use Cardiovascular: Regular Rate, Rhythm, No Edema, No Murmur Gastrointestinal: Normal Bowel Sounds, Non Tender, Soft; No Distended Extremity: Normal Inspection, No Pedal Edema Neurologic/Psychiatric: Alert, Oriented x3, No Motor/Sensory Deficits, Normal Mood/Affect Skin: Normal Color, Warm/Dry Progress/Results/Core Measures Suspected Sepsis SIRS Temperature: Pulse: Respiratory Rate: Laboratory Tests 10/11/22 20:11: White Blood Count 7.7 Blood Pressure / Mean: Laboratory Tests 10/11/22 20:11: Creatinine 2.00H, Platelet Count 234, Total Bilirubin 0.3 Results/Orders Lab Results Laboratory Tests Test 10/11/22 20:11 10/11/22 20:23 10/11/22 20:27 Range/Units White Blood Count 7.7 4.3-11.0 10^3/uL Red Blood Count 3.88 3.80-5.11 10^6/uL Hemoglobin 11.1 L 11.5-16.0 g/dL Hematocrit 35 35-52 % Mean Corpuscular Volume 91 80-99 fL Mean Corpuscular Hemoglobin 29 25-34 pg Mean Corpuscular Hemoglobin Concent 32 32-36 g/dL Red Cell Distribution Width 13.2 10.0-14.5 % Platelet Count 234 130-400 10^3/uL Mean Platelet Volume 10.6 9.0-12.2 fL Immature Granulocyte % (Auto) 0 % Neutrophils (%) (Auto) 72 42-75 % Lymphocytes (%) (Auto) 14 12-44 % Monocytes (%) (Auto) 9 0-12 % Eosinophils (%) (Auto) 5 0-10 % Basophils (%) (Auto) 1 0-10 % Neutrophils # (Auto) 5.5 1.8-7.8 10^3/uL Lymphocytes # (Auto) 1.1 1.0-4.0 10^3/uL Monocytes # (Auto) 0.7 0.0-1.0 10^3/uL Eosinophils # (Auto) 0.4 H 0.0-0.3 10^3/uL Basophils # (Auto) 0.1 0.0-0.1 10^3/uL Immature Granulocyte # (Auto) 0.0 0.0-0.1 10^3/uL Percent Immature Platelet Fraction 3.0 0.0-7.6 % Sodium Level 139 135-145 MMOL/L Potassium Level 5.1 H 3.6-5.0 MMOL/L Chloride Level 107 98-107 MMOL/L Carbon Dioxide Level 21 21-32 MMOL/L Anion Gap 11 5-14 MMOL/L Blood Urea Nitrogen 17 7-18 MG/DL Creatinine 2.00 H 0.60-1.30 MG/DL Estimat Glomerular Filtration Rate 26 BUN/Creatinine Ratio 9 Glucose Level 169 H 70-105 MG/DL Calcium Level 8.5 8.5-10.1 MG/DL Corrected Calcium 9.1 8.5-10.1 MG/DL Magnesium Level 1.5 L 1.6-2.4 MG/DL Total Bilirubin 0.3 0.1-1.0 MG/DL Aspartate Amino Transf (AST/SGOT) 23 5-34 U/L Alanine Aminotransferase (ALT/SGPT) 36 0-55 U/L Alkaline Phosphatase 147 H 40-136 U/L Troponin I < 0.30 <0.30 NG/ML Total Protein 6.3 L 6.4-8.2 GM/DL Albumin 3.3 3.2-4.5 GM/DL Influenza Type A (RT-PCR) Not Detected Not Detecte Influenza Type B (RT-PCR) Not Detected Not Detecte SARS-CoV-2 RNA (RT-PCR) Not Detected Not Detecte Urine Color YELLOW Urine Clarity CLEAR Urine pH 7.0 5-9 Urine Specific [place] 1.010 L 1.016-1.022 Urine Protein 2+ H NEGATIVE Urine Glucose (UA) NEGATIVE NEGATIVE Urine Ketones NEGATIVE NEGATIVE Urine Nitrite POSITIVE H NEGATIVE Urine Bilirubin NEGATIVE NEGATIVE Urine Urobilinogen 0.2 < = 1.0 MG/DL Urine Leukocyte Esterase TRACE H NEGATIVE Urine RBC (Auto) TRACE-I H NEGATIVE Urine RBC 2-5 H /HPF Urine WBC 10-25 H /HPF Urine Squamous Epithelial Cells RARE /HPF Urine Crystals NONE /LPF Urine Bacteria MODERATE H /HPF Urine Casts NONE /LPF Urine Mucus NEGATIVE /LPF Urine Culture Indicated YES My Orders Orders - CYNDEE LATHAM MD Cbc With Automated Diff (10/11/22 20:12) Comprehensive Metabolic Panel (10/11/22 20:12) Magnesium (10/11/22 20:12) Troponin I [place] (10/11/22 20:12) Ua Culture If Indicated (10/11/22 20:12) Ed Iv/Invasive Line Start (10/11/22 20:12) Ekg Tracing (10/11/22 20:12) Monitor-Rhythm Ecg Trace Only (10/11/22 20:12) Covid 19 Inhouse Test (10/11/22 20:12) Influenza A And B By Pcr (10/11/22 20:12) Urine Culture (10/11/22 20:27) Ceftriaxone Iv/Im (Ceftriaxone Iv/Im) (10/11/22 21:39) Chest 1 View Ap/Pa Only (10/11/22 21:41) Vital Signs/I&O 10/11/22 10/11/22 20:05 22:33 Temp 37.1 37.0 Pulse 86 72 Resp 20 20 B/P (MAP) 237/77 (130) 136/53 Pulse Ox 96 96 O2 Delivery Room Air Room Air Capillary Refill : Progress Note : Progress Note Patient was interviewed and examined upon arrival. Report was received from EMS. Patient remained stable throughout her ER stay. Labs were obtained, reviewed, and interpreted by me. CBC was unremarkable. CMP was notable for slight elevation in potassium of 5.1, glucose of 169, and elevation in creatinine of 2.0 which is a little above her baseline when compared to prior. Urinalysis demonstrated nitrite positive, 10-25 WBC, and moderate bacteria. UA suggested urinary tract infection. Patient was treated with 1 L of normal saline as initiated by EMS. Rocephin was given for UTI. Influenza and COVID-19 test were negative. Patient was discharged feeling improved. Chest x-ray was viewed by me and no acute abnormalities were appreciated. Radiologist's report was reviewed and agreed with that interpretation. Patient declined a repeat Ac cu-Chek before discharge. ECG Initial ECG Impression Date: Oct 11, 2022 Initial ECG Impression Time: 20:50 Initial ECG Rate: 78 Initial ECG Rhythm: Normal Sinus Initial ECG Intervals: Normal Initial ECG Impression: Normal Comment Normal sinus rhythm with no ST elevation or depression. No abnormal intervals or axis deviation. Diagnostic Imaging Diagonstic Imaging: Xray Plain Films/CT/US/NM/MRI: chest Comments NAME: NELA GRANADOS [facility] REC#: [id number] PT STATUS: DEP ER : 1950 PHYSICIAN: CYNDEE LATHAM MD ADMIT DATE: 10/11/22/ER FS Signed Date of Exam:10/11/22 CHEST 1 VIEW AP/PA ONLY EXAM: Chest 1 view AP/PA only. INDICATION: Shortness of air. COMPARISON: 08/28/2017. FINDINGS: Normal heart size and central pulmonary vascularity. Lungs are clear. No pleural effusion or pneumothorax. No acute osseous finding. IMPRESSION: No acute cardiopulmonary finding. Dictated by: Dictated on workstation # [id number] Dict: 10/11/222199 Trans: 10/11/222238 [facility] [id number] Interpreted by: GLADYS SILVA MD Electronically signed by: GLADYS SILVA MD 10/11/222238 Departure Impression Primary Impression: UTI (urinary tract infection) Qualified Codes: N39.0 - Urinary tract infection, site not specified Additional Impressions: Hypoglycemia Chronic kidney disease exacerbation Dyspnea Qualified Codes: R06.00 - Dyspnea, unspecified Disposition: 01 HOME, SELF-CARE Condition: Improved Departure-Patient Inst. Decision time for Depature: 22:19 Referrals: RON MCMANUS MD (PCP/Family) Primary Care Physician Patient Instructions: Urinary Tract Infection, Adult ED Add. Discharge Instructions: Drink plenty of water to stay well-hydrated. Monitor your blood sugars closely. Complete your antibiotic as prescribed. After 48 hours, contact your primary care provider or the ER to review urine culture results. This will help ensure you are taking the most appropriate antibiotic for the type of bacteria causing your infection. Return to care if you have worsening symptoms despite following these instructions. All discharge instructions reviewed with patient and/or family. Voiced understanding. Scripts Cephalexin (Cephalexin) 500 Mg Tablet 500 MG PO BID, #14 TAB Prov: CYNDEE LATHAM MD 10/11/22 Copy Copies To 1: [facility] CYNDEE LATHAM MD Oct 11, 2022 21:40
[2022-10-11] MEDS ORDERED: NS IV 1000 ML 1,000 ML IV SCH (21:45)
--- NOTE | 2022-10-11 22:04 | Diagnostic Imaging Report ---
EXAM: Chest 1 view AP/PA only. INDICATION: Shortness of air. COMPARISON: 08/28/2017. FINDINGS: Normal heart size and central pulmonary vascularity. Lungs are clear. No pleural effusion or pneumothorax. No acute osseous finding. IMPRESSION: No acute cardiopulmonary finding. Dictated by: Dictated on workstation # [id number]
[2022-10-11] MEDS ORDERED: CEPH500T PO (22:24)
[2022-10-11 22:33] VITALS: BP 136/53
== END 2022-10-11 22:33 | disposition home or self-care (01) ==
LOC: EDUNIT# 20:02 → ER FS 20:03
DX: R06.00 Dyspnea, unspecified (principal); E11.649 Type 2 diabetes mellitus with hypoglycemia without coma; I12.9 Hypertensive chronic kidney disease with stage 1 through stage 4 chronic kidney disease, or unspecified chronic kidney disease; E11.22 Type 2 diabetes mellitus with diabetic chronic kidney disease; N18.9 Chronic kidney disease, unspecified; N39.0 Urinary tract infection, site not specified; Z79.4 Long term (current) use of insulin; Z20.822 Contact with and (suspected) exposure to COVID-19; Z88.0 Allergy status to penicillin
CPT/HCPCS: 36415; 71045; 80053; 81000; 83735; 84484; 85025; 87088; 87636; 93005

== ENCOUNTER → 2022-10-24 | Outpatient (CLI) | payer MEDICARE, MEDICAID ==
[~2022-10-24] MED LIST changes: +CEPH500T PO
--- NOTE | 2022-10-24 12:37 | Diagnostic Imaging Report ---
INDICATION: Postmenopausal screening COMPARISON: 04/15/2015 FINDINGS: AP Spine L1-L4: [BMD (g/cm2): .922] [T-Score: -2.3] [Z-Score: -1.3] [BMD Previous: 0.969] [BMD % Change: -4.9*] LT Hip Neck: [BMD (g/cm2): na] [T-Score: na] [Z-Score: na] LT Hip Total: [BMD (g/cm2):na] [T-Score:nan] [Z-Score: na] [BMD Previous: na] [BMD % Change: na] RT Hip Neck: [BMD (g/cm2):0.577] [T-Score:-3.3] [Z-Score:-2.0] RT Hip Total: [BMD (g/cm2):0.542] [T-score:-3.7] [Z-Score:-2.6] [BMD Previous:0.689] [BMD % Change:-16.3*] *Indicates significant change from prior examination based on 95% confidence level. World Health Organization criteria for BMD interpretation classify patients as Normal (T-score at or above -1.0), Osteopenic (T-score between -1.0 and -2.5) or Osteoporotic (T-score at or below -2.5). LIMITATIONS AND MODIFICATION: None. FRACTURE RISK (FRAX SCORE): The ten year probability of (%): Major Osteoporotic Fracture: [na] Hip Fracture: [na] IMPRESSION: 1. Osteoporosis. 2. Bone mineral density has decreased by a statistically significant amount, as detailed above. 3. See below National Osteoporosis Foundation guidelines on when to potentially initiate pharmacologic therapy. Based on the National Osteoporosis Foundation Guidelines, pharmacologic treatment should be initiated in any of the following, unless clinical conditions suggest otherwise: * Any patient with prior fragility fracture of the hip or vertebrae. A spine fracture indicates 5X risk for subsequent spine fracture and 2X risk for subsequent hip fracture. * Osteoporosis (T-score <-2.5). * Postmenopausal women and men age 50 and older with low bone mass/osteopenia (T-score between -1.0 and -2.5) by DXA and 10-year major osteoporotic fracture greater than 20% or a 10-year probability of hip fracture greater than 3%. These fracture risks are supplied above in the FRAX score, if applicable. * Clinician judgement and/or patient preferences may indicate treatment for people with 10-year fracture probabilities above or below these levels. Dictated by: Dictated on workstation # [id number]
== END ==
LOC: RAD 11:09
PROVIDERS: ATTEND Registered Nurse Emergency
DX: Z13.820 Encounter for screening for osteoporosis (principal); M81.0 Age-related osteoporosis without current pathological fracture
CPT/HCPCS: 77080